=== PATIENT | female | born 1955 | race Caucasian/White ===

== ENCOUNTER 2016-06-15 10:31 | Inpatient (IN) | payer OTHER ==
[2016-06-15] VITALS (23 sets, daily range): BP systolic 88–164; BP diastolic 36–102
[~2016-06-15] VITALS: Ht 154.9 cm; Wt 63.0 kg
[~2016-06-15 10:31] MED LIST: METH10TA2 PO
[2016-06-15] MEDS ORDERED: IV SET PRIMARY PUMP SET 1 EA INFUS.SET MC ONE ×4 (10:54→23:50)
[2016-06-15] MEDS ORDERED: IV NS 0.9% 2,000 ML ONE (10:54)
[2016-06-15] MEDS ORDERED: LORAZEPAM INJ 2 MG/ML VIAL ONE (10:59)
[2016-06-15] MEDS ORDERED: VANCOMYCIN 1 GM in IV D5W 250 ML IV ONE (11:00)
[2016-06-15] MEDS ORDERED: IV NS 0.9% 1,000 ML BAG IV ONE ×2 (11:00)
[2016-06-15] MEDS ORDERED: CEFEPIME 1 GM in IV D5W 50 ML IV ONE (11:00)
[2016-06-15] MEDS ORDERED: LORAZEPAM INJ 2 MG/ML VIAL IV ONE (11:00)
[2016-06-15 11:34] LABS: INR 0.99 (0.87-1.13); PROTHROMBIN TIME 10.4 SECS (9.5-12.7)
[2016-06-15 11:35] LABS: ABG BASE EXCESS -27.3 mmol/L; ABG HCO3 3.7 mmol/L; ABG PCO2 17.9 mmHg (35.0-45.0); ABG PH 6.934 (7.350-7.450); ABG PO2 144.5 mmHg (75.0-100.0); O2Hb 96.3 % (94.0-97.0)
[2016-06-15 11:39] LABS: TROPONIN I < 0.017 ng/mL (0.00-0.056)
[2016-06-15 11:45] LABS: ALANINE AMINOTRANSFERASE 106 U/L (12-78); ALBUMIN 3.2 g/dL (3.4-5.0); ANION GAP 34 (5-14); ASPARTATE AMINOTRANSFERASE 150 U/L (15-37); BILIRUBIN,DIRECT 0.3 mg/dL (0.0-0.2); BILIRUBIN,TOTAL 0.8 mg/dL (0.2-1.0); CALCIUM, SERUM 9.2 mg/dL (8.5-10.1); CHLORIDE 100 mmol/L (98-107); CREATININE 1.5 mg/dL (0.6-1.3); GFR 36 mL/min (>60); INDIRECT BILIRUBIN 0.5 mg/dL (0.0-1.1); POTASSIUM 4.8 mmol/L (3.5-5.1); SODIUM SERUM 136 mmol/L (136-145); TOTAL PROTEIN, SERUM 8.3 g/dL (6.4-8.2); UREA NITROGEN, BLOOD 27 mg/dL (7-18)
[2016-06-15 11:47] LABS: THYROID STIMULATING HORMONE 0.106 uIU/mL (0.358-3.74)
[2016-06-15 11:48] LABS: LACTIC ACID 2.3 mmol/L (0.4-2.0)
[2016-06-15 11:51] LABS: CARBON DIOXIDE 6 mmol/L (21-32); GLUCOSE 553 mg/dL (74-106)
[2016-06-15 11:52] LABS: ADD UA MICROSCOPIC YES; KETONES,URINE 3+ (NEGATIVE); LEUKOCYTE ESTERASE ,URINE NEGATIVE (NEGATIVE)
[2016-06-15 11:56] LABS: BASOPHILS # (AUTO) 0.2 /CMM (0.0-0.2); BASOPHILS % (AUTO) 0.8 % (0.0-2.0); DIFF TOTAL % 100 %; EOSINOPHILS % (AUTO) 0.1 % (0.0-6.0); HEMATOCRIT 45 % (33-45); HEMOGLOBIN 14.1 g/dL (11.5-14.8); LYMPHOCYTES # (AUTO) 1.8 /CMM (0.8-4.8); LYMPHOCYTES % (AUTO) 7.7 % (20.0-44.0); MEAN CORPUSCULAR HEMOGLOBIN 27 PG (26.0-33.0); MEAN CORPUSCULAR HGB CONC 31 g/dl (31.0-36.0); MEAN CORPUSCULAR VOLUME 88 fL (82-100); MONOCYTES # (AUTO) 0.8 /CMM (0.1-1.30); MONOCYTES % (AUTO) 3.2 % (2.0-12.0); NEUTROPHILS # (AUTO) 20.9 /CMM (1.8-8.9); NEUTROPHILS % (AUTO) 88.2 % (43.0-81.0); PLATELET COUNT (AUTO) 499 /CMM (150-450); RED BLOOD CELL COUNT(AUTO) 5.16 MIL/uL (4.0-5.2); WHITE BLOOD COUNT (AUTO) 23.7 K/uL (4.3-11.0)
[2016-06-15 12:04] LABS: ADD URINE CULTURE NO; WBC,URINE 0-2 /HPF (0-3)
[2016-06-15 12:17] LABS: *LACTIC ACID REFLEX FLAG YES
[2016-06-15] MEDS ORDERED: INSULIN REGULAR, HUMAN 100 UNIT in IV NS 0.9% 99 ML IV PRN ×8 (12:30→17:30)
[2016-06-15 12:32] LABS: BAND % (MANUAL) 6 % (0.0-5.0); LYMPHOCYTES % (MANUAL) 9 % (16-48)
[2016-06-15 12:33] LABS: PLATELET ESTIMATE ADEQUATE
[2016-06-15 12:34] LABS: ANISOCYTOSIS 1+; BURR CELLS 1+
[2016-06-15] MEDS ORDERED: Potassium Chloride 40 MEQ in IV NS 0.9% 1,000 ML IV STA (12:51)
[2016-06-15] MEDS ORDERED: IV NS 0.9% 1,000 ML IV PRN (13:16)
[2016-06-15] MEDS ORDERED: ONDANSETRON HCL/PF 4 MG/2 ML VIAL IVP PRN (13:30)
[2016-06-15] MEDS ORDERED: MAG HYDROX/AL HYDROX/SIMETH 30 ML UDC PO PRN (13:30)
[2016-06-15] MEDS ORDERED: Z GUARD REMEDY 2 OZ OINT TP PRN (13:30)
[2016-06-15] MEDS ORDERED: MAGNESIUM HYDROXIDE 30 ML UDC PO PRN (13:30)
[2016-06-15] MEDS ORDERED: ACETAMINOPHEN 325 MG TABLET PO PRN (13:30)
[2016-06-15] MEDS ORDERED: FEE PK DOSING 1 MIN EA MC ONE (13:42)
[2016-06-15] MEDS: IV NS 0.9% 1,000 ML IV STA ×2 (13:55→14:41)
[2016-06-15] MEDS ORDERED: VANCOMYCIN 1 GM in IV D5W 250 ML IV SCH (14:00)
[2016-06-15] MEDS ORDERED: BLOOD SUGAR DIAGNOSTIC 1 EACH STRIP IN SCH (14:30)
[2016-06-15] MEDS: BLOOD SUGAR DIAGNOSTIC 1 EACH STRIP IN SCH ×9 (15:46→23:41)
[2016-06-15 15:54] LABS: CANNABINOID, URINE NEGATIVE (NEGATIVE); PHENCYCLIDINE SCREEN,URINE NEGATIVE (NEGATIVE)
[2016-06-15] MEDS: PIPERACILLIN /TAZOBACTAM 2.25 G in IV D5W 50 ML IV SCH (17:28)
[2016-06-15] MEDS: IV D5/0.45 NACL 1,000 ML IV PRN (17:37)
[2016-06-15 18:36] LABS: CALCIUM, SERUM 7.8 mg/dL (8.5-10.1); CREATININE 1.2 mg/dL (0.6-1.3); POTASSIUM 4.1 mmol/L (3.5-5.1)
[2016-06-15] MEDS ORDERED: DEXTROSE 50%-WATER 50 ML DISP.SYRIN IV PRN (23:00)
[2016-06-15] MEDS ORDERED: PANTOPRAZOLE 40 MG VIAL ONE ×2 (23:48→23:49)
[2016-06-15] MEDS ORDERED: IV NS 0.9% 500 ML IV ONE (23:49)
[2016-06-15] MEDS: PANTOPRAZOLE 80 MG in IV NS 0.9% 500 ML IV PRN (23:56)
[2016-06-16] VITALS (40 sets, daily range): BP systolic 117–167; BP diastolic 64–109
[2016-06-16] MEDS: PIPERACILLIN /TAZOBACTAM 2.25 G in IV D5W 50 ML IV SCH ×2 (01:00→06:08)
[2016-06-16] MEDS: INSULIN REGULAR, HUMAN 100 UNIT/ML 3 ML VIAL SQ PRN ×3 (01:04→08:25)
[2016-06-16] MEDS: BLOOD SUGAR DIAGNOSTIC 1 EACH STRIP IN SCH ×16 (01:05→23:00)
[2016-06-16 01:18] LABS: CALCIUM, SERUM 8.4 mg/dL (8.5-10.1); POTASSIUM 3.4 mmol/L (3.5-5.1)
[2016-06-16 04:49] LABS: DIFF TOTAL % 100 %; HEMATOCRIT 35 % (33-45); HEMOGLOBIN 11.7 g/dL (11.5-14.8); LYMPHOCYTES # (AUTO) 0.5 /CMM (0.8-4.8); LYMPHOCYTES % (AUTO) 4.3 % (20.0-44.0); MEAN CORPUSCULAR HEMOGLOBIN 28 PG (26.0-33.0); MEAN CORPUSCULAR HGB CONC 33 g/dl (31.0-36.0); MEAN CORPUSCULAR VOLUME 84 fL (82-100); MONOCYTES # (AUTO) 0.9 /CMM (0.1-1.30); MONOCYTES % (AUTO) 7.5 % (2.0-12.0); NEUTROPHILS % (AUTO) 88.2 % (43.0-81.0); PLATELET COUNT (AUTO) 201 /CMM (150-450); WHITE BLOOD COUNT (AUTO) 11.4 K/uL (4.3-11.0)
[2016-06-16 05:04] LABS: CALCIUM, SERUM 8.2 mg/dL (8.5-10.1); PHOSPHORUS 1.1 mg/dL (2.5-4.9); POTASSIUM 3.1 mmol/L (3.5-5.1)
[2016-06-16] MEDS: IV D5/0.45 NACL 1,000 ML IV PRN (05:34)
[2016-06-16] MEDS ORDERED: PANTOPRAZOLE 40 MG TABLET.DR PO SCH (07:30)
[2016-06-16] MEDS: BACITRACIN ZINC OINT (15 GM) 15 GM TUBE TP SCH ×2 (08:28→17:18)
[2016-06-16] MEDS: PANTOPRAZOLE 80 MG in IV NS 0.9% 500 ML IV PRN (08:45)
[2016-06-16] MEDS: NEOMY SULF/BACITRAC ZN/POLY 15 GM TUBE TP SCH (09:23)
[2016-06-16] MEDS ORDERED: POTASSIUM CL. PREMIX PERIPHER. 50 ML IV SCH (10:57)
[2016-06-16] MEDS ORDERED: Magnesium 1GM/D5W 100ML PREMIX 100 ML IV SCH (10:57)
[2016-06-16] MEDS ORDERED: IV SET PRIMARY PUMP SET 1 EA INFUS.SET MC ONE (11:10)
[2016-06-16] MEDS: Magnesium 1GM/D5W 100ML PREMIX 100 ML IV SCH ×4 (11:16→14:13)
[2016-06-16] MEDS: VANCOMYCIN 1 GM in IV D5W 250 ML IV SCH ×2 (11:28→22:48)
[2016-06-16] MEDS: INSULIN REGULAR, HUMAN 100 UNIT in IV NS 0.9% 99 ML IV PRN ×2 (11:51)
[2016-06-16] MEDS: PIPERACILLIN /TAZOBACTAM 3.375 G in IV D5W 50 ML IV SCH ×3 (11:52→23:21)
[2016-06-16] MEDS ORDERED: POTASSIUM PHOSPHATE MM 15 MMOL in IV D5W 250 ML IV SCH ×3 (12:00→21:30)
[2016-06-16] MEDS ORDERED: VANCOMYCIN 1 GM in IV D5W 250 ML IV SCH (14:00)
[2016-06-16 17:46] LABS: CREATININE 0.9 mg/dL (0.6-1.3)
[2016-06-16 17:48] LABS: PHOSPHORUS 0.8 mg/dL (2.5-4.9); POTASSIUM 2.7 mmol/L (3.5-5.1)
[2016-06-16] MEDS: POTASSIUM CL. PREMIX PERIPHER. 50 ML IV SCH ×4 (18:48→21:35)
[2016-06-16] MEDS: Potassium Chloride 40 MEQ in IV D5/0.45 NACL 1,000 ML IV PRN (18:59)
[2016-06-16] MEDS ORDERED: ALBUTEROL FS 2.5 MG/0.5 ML VIAL.NEB NEB PRN (20:00)
[2016-06-16] MEDS: PANTOPRAZOLE 40 MG VIAL IV SCH (21:35)
[2016-06-16] MEDS: HYDROCODONE/APAP 5/325MG 1 EACH TABLET PO PRN (22:56)
[2016-06-17] VITALS (41 sets, daily range): BP systolic 86–137; BP diastolic 48–96
[2016-06-17] MEDS: BLOOD SUGAR DIAGNOSTIC 1 EACH STRIP IN SCH ×14 (00:54→21:22)
[2016-06-17 05:03] LABS: CALCIUM, SERUM 7.9 mg/dL (8.5-10.1); CREATININE 0.7 mg/dL (0.6-1.3)
[2016-06-17 05:23] LABS: POTASSIUM 2.7 mmol/L (3.5-5.1)
[2016-06-17] MEDS: PIPERACILLIN /TAZOBACTAM 3.375 G in IV D5W 50 ML IV SCH ×4 (06:59→23:50)
[2016-06-17] MEDS: Potassium Chloride 40 MEQ in IV D5/0.45 NACL 1,000 ML IV PRN (06:59)
[2016-06-17] MEDS ORDERED: Sodium Phosphate 15 MMOL in IV D5W 250 ML IV ONE ×3 (07:30→23:30)
[2016-06-17] MEDS: GUAIFENESIN/CODEINE 10 ML UDC PO PRN (07:38)
[2016-06-17] MEDS: POTASSIUM CL. PREMIX PERIPHER. 50 ML IV SCH ×10 (07:58→17:25)
[2016-06-17] MEDS: PANTOPRAZOLE 40 MG VIAL IV SCH ×2 (07:58→21:14)
[2016-06-17] MEDS: INSULIN REGULAR, HUMAN 100 UNIT in IV NS 0.9% 99 ML IV PRN ×4 (08:00→09:08)
[2016-06-17] MEDS: BACITRACIN ZINC OINT (15 GM) 15 GM TUBE TP SCH ×2 (08:10→16:51)
[2016-06-17] MEDS: NEOMY SULF/BACITRAC ZN/POLY 15 GM TUBE TP SCH (08:10)
[2016-06-17] MEDS ORDERED: NEUTRA PHOS 1 POWD.PACKET PO ONE (08:30)
[2016-06-17] MEDS ORDERED: POTASSIUM CL. PREMIX PERIPHER. 50 ML IV SCH (08:30)
[2016-06-17] MEDS: Potassium Phosphate meq 11 MEQ in IV D5W 100 ML IV SCH ×2 (09:31→11:57)
[2016-06-17] MEDS: VANCOMYCIN 1 GM in IV D5W 250 ML IV SCH (10:43)
[2016-06-17] MEDS ORDERED: FUROSEMIDE 40 MG/4 ML VIAL IV ONE (11:00)
[2016-06-17] MEDS ORDERED: IV NS 0.9% 250 ML IV ONE ×2 (11:00→18:40)
[2016-06-17] MEDS ORDERED: DEXTROSE 50%-WATER 50 ML DISP.SYRIN IV PRN (11:00)
[2016-06-17] MEDS ORDERED: IV NS 0.9% 250 ML IV PRN (11:30)
[2016-06-17] MEDS: INSULIN REGULAR, HUMAN 100 UNIT/ML 3 ML VIAL SQ PRN ×3 (12:18→21:25)
[2016-06-17] MEDS ORDERED: ACETAMINOPHEN 650 MG/20.3 ML UDC PO PRN (13:00)
[2016-06-17 13:56] LABS: LACTIC ACID 3.5 mmol/L (0.4-2.0)
[2016-06-17 14:31] LABS: *LACTIC ACID REFLEX FLAG YES
[2016-06-17] MEDS: ALPRAZOLAM 1 MG TABLET PO SCH ×2 (14:47→22:23)
[2016-06-17 14:51] LABS: ALLEN TEST Pass
[2016-06-17 15:38] LABS: BILIRUBIN,DIRECT 0.3 mg/dL (0.0-0.2)
[2016-06-17 18:19] LABS: CALCIUM, SERUM 8.2 mg/dL (8.5-10.1); CREATININE 0.9 mg/dL (0.6-1.3); PHOSPHORUS 1.5 mg/dL (2.5-4.9); POTASSIUM 3.8 mmol/L (3.5-5.1)
[2016-06-17 18:34] LABS: BASOPHILS % (AUTO) 0.1 % (0.0-2.0); DIFF TOTAL % 100 %; HEMATOCRIT 42 % (33-45); HEMOGLOBIN 13.7 g/dL (11.5-14.8); LYMPHOCYTES # (AUTO) 1.5 /CMM (0.8-4.8); LYMPHOCYTES % (AUTO) 15.4 % (20.0-44.0); MEAN CORPUSCULAR HEMOGLOBIN 27 PG (26.0-33.0); MEAN CORPUSCULAR HGB CONC 33 g/dl (31.0-36.0); MEAN CORPUSCULAR VOLUME 82 fL (82-100); MONOCYTES # (AUTO) 0.5 /CMM (0.1-1.30); MONOCYTES % (AUTO) 5.2 % (2.0-12.0); NEUTROPHILS # (AUTO) 7.8 /CMM (1.8-8.9); NEUTROPHILS % (AUTO) 79.3 % (43.0-81.0); PLATELET COUNT (AUTO) 273 /CMM (150-450); RED BLOOD CELL COUNT(AUTO) 5.04 MIL/uL (4.0-5.2); WHITE BLOOD COUNT (AUTO) 9.8 K/uL (4.3-11.0)
[2016-06-17] MEDS ORDERED: CT SWABBABLE VALVE TRANS SET 1 EA INFUS.SET MC ONE (18:40)
[2016-06-17] MEDS ORDERED: IOHEXOL-350 100 ML VIAL IV ONE (18:40)
[2016-06-17] MEDS ORDERED: Magnesium 1GM/D5W 100ML PREMIX 100 ML IV SCH (20:00)
[2016-06-17] MEDS ORDERED: IV NS 0.9% 1,000 ML IV PRN (20:00)
[2016-06-17] MEDS ORDERED: IV SET PRIMARY PUMP SET 1 EA INFUS.SET MC ONE (20:20)
[2016-06-17] MEDS ORDERED: IV NS 0.9% 1,000 ML ONE (20:21)
[2016-06-17] MEDS ORDERED: SECONDARY IV SET 1 EA INFUS.SET MC ONE ×2 (20:34→22:25)
[2016-06-17] MEDS: VANCOMYCIN 1.25 GM in IV D5W 500 ML IV SCH (22:21)
[2016-06-17] MEDS: ENOXAPARIN SODIUM 40 MG/0.4 ML DISP.SYRIN SQ SCH (22:22)
[2016-06-18] VITALS (38 sets, daily range): BP systolic 92–125; BP diastolic 47–83
[2016-06-18] MEDS: BLOOD SUGAR DIAGNOSTIC 1 EACH STRIP IN SCH ×6 (01:00→22:09)
[2016-06-18] MEDS: INSULIN REGULAR, HUMAN 100 UNIT/ML 3 ML VIAL SQ PRN ×4 (01:01→21:10)
[2016-06-18 04:56] LABS: BASOPHILS # (AUTO) 0.1 /CMM (0.0-0.2); BASOPHILS % (AUTO) 1.3 % (0.0-2.0); DIFF TOTAL % 100 %; EOSINOPHILS % (AUTO) 0.7 % (0.0-6.0); HEMATOCRIT 39 % (33-45); LYMPHOCYTES # (AUTO) 1.5 /CMM (0.8-4.8); LYMPHOCYTES % (AUTO) 25.6 % (20.0-44.0); MEAN CORPUSCULAR HEMOGLOBIN 27 PG (26.0-33.0); MEAN CORPUSCULAR HGB CONC 33 g/dl (31.0-36.0); MEAN CORPUSCULAR VOLUME 83 fL (82-100); MONOCYTES # (AUTO) 0.5 /CMM (0.1-1.30); NEUTROPHILS # (AUTO) 3.9 /CMM (1.8-8.9); NEUTROPHILS % (AUTO) 64.4 % (43.0-81.0); PLATELET COUNT (AUTO) 192 /CMM (150-450); RED BLOOD CELL COUNT(AUTO) 4.75 MIL/uL (4.0-5.2)
[2016-06-18 05:01] LABS: CREATININE 0.6 mg/dL (0.6-1.3)
[2016-06-18] MEDS ORDERED: SECONDARY IV SET 1 EA INFUS.SET MC ONE (05:55)
[2016-06-18] MEDS: ALPRAZOLAM 1 MG TABLET PO SCH (06:25)
[2016-06-18] MEDS: PIPERACILLIN /TAZOBACTAM 3.375 G in IV D5W 50 ML IV SCH ×3 (06:37→17:17)
[2016-06-18 07:33] LABS: PHOSPHORUS 3.8 mg/dL (2.5-4.9)
[2016-06-18] MEDS ORDERED: POTASSIUM CHLORIDE 20 MEQ POWDER PACKET PO ONE (08:00)
[2016-06-18 08:07] LABS: ABG BASE EXCESS 3.8 mmol/L; ABG HCO3 24.5 mmol/L; ABG NOTIFIED BY AS RRT; ABG PCO2 26.6 mmHg (35.0-45.0); ABG PH 7.582 (7.350-7.450); ABG PO2 51.9 mmHg (75.0-100.0); AaDO2 289.1 mmHg; O2Hb 89.7 % (94.0-97.0)
[2016-06-18] MEDS: PANTOPRAZOLE 40 MG VIAL IV SCH ×2 (08:22→21:10)
[2016-06-18 09:03] LABS: ABG BASE EXCESS 3.5 mmol/L; ABG HCO3 25.9 mmol/L; ABG NOTIFIED BY AS RRT.; ABG PCO2 32.3 mmHg (35.0-45.0); ABG PH 7.522 (7.350-7.450); ABG PO2 62.2 mmHg (75.0-100.0); ABG TOTAL HEMOGLOBIN 12.7 G/dL (12.0-16.0); ALLEN TEST Pass; AaDO2 330.1 mmHg; O2Hb 91.2 % (94.0-97.0)
[2016-06-18] MEDS: NEOMY SULF/BACITRAC ZN/POLY 15 GM TUBE TP SCH (09:14)
[2016-06-18] MEDS: BACITRACIN ZINC OINT (15 GM) 15 GM TUBE TP SCH ×2 (09:14→16:50)
[2016-06-18] MEDS: Potassium Chloride 40 MEQ in IV NS 0.9% 1,000 ML IV PRN (09:40)
[2016-06-18] MEDS: VANCOMYCIN 1.25 GM in IV D5W 500 ML IV SCH ×2 (11:24→23:13)
[2016-06-18] MEDS: IPRATROPIUM NEB FS 0.5 MG/2.5 ML AMPUL.NEB NEB SCH ×3 (12:07→19:30)
[2016-06-18] MEDS: ALBUTEROL HALF STRENGTH 1.25 MG/3 ML VIAL.NEB NEB SCH ×3 (12:07→19:30)
[2016-06-18] MEDS ORDERED: ALPRAZOLAM 0.25 MG TABLET PO SCH (15:00)
[2016-06-18] MEDS ORDERED: IPRATROPIUM NEB FS 0.5 MG/2.5 ML AMPUL.NEB NEB SCH (15:30)
[2016-06-18] MEDS: LACTOBACILLUS RHAMNOSUS GG 1 EACH CAP.SPRINK PO SCH (17:17)
[2016-06-18] MEDS: ENOXAPARIN SODIUM 40 MG/0.4 ML DISP.SYRIN SQ SCH (18:58)
[2016-06-18] MEDS: LORAZEPAM INJ 2 MG/ML VIAL IV PRN (18:58)
[2016-06-18] MEDS: GUAIFENESIN/CODEINE 10 ML UDC PO PRN (18:59)
[2016-06-18] MEDS ORDERED: ALPRAZOLAM 0.5 MG TABLET PO SCH (21:00)
[2016-06-18] MEDS ORDERED: ALPRAZOLAM 0.5 MG TABLET PO PRN (22:00)
[2016-06-18] MEDS: ALPRAZOLAM 0.5 MG TABLET PO SCH (22:09)
[2016-06-18] MEDS: ZOLPIDEM TARTRATE 5 MG TABLET PO PRN (23:20)
[2016-06-19] VITALS (15 sets, daily range): BP systolic 89–140; BP diastolic 38–77
[2016-06-19] MEDS: IPRATROPIUM NEB FS 0.5 MG/2.5 ML AMPUL.NEB NEB SCH ×7 (00:10→23:30)
[2016-06-19] MEDS: ALBUTEROL HALF STRENGTH 1.25 MG/3 ML VIAL.NEB NEB SCH ×7 (00:10→23:30)
[2016-06-19] MEDS: PIPERACILLIN /TAZOBACTAM 3.375 G in IV D5W 50 ML IV SCH ×4 (01:04→17:10)
[2016-06-19] MEDS: INSULIN REGULAR, HUMAN 100 UNIT/ML 3 ML VIAL SQ PRN ×4 (01:04→20:21)
[2016-06-19] MEDS: BLOOD SUGAR DIAGNOSTIC 1 EACH STRIP IN SCH ×6 (01:04→20:21)
[2016-06-19] MEDS: Potassium Chloride 40 MEQ in IV NS 0.9% 1,000 ML IV PRN (01:08)
[2016-06-19 04:55] LABS: BASOPHILS % (AUTO) 0.6 % (0.0-2.0); DIFF TOTAL % 100 %; EOSINOPHILS # (AUTO) 0.2 /CMM (0.0-0.7); EOSINOPHILS % (AUTO) 4.3 % (0.0-6.0); HEMATOCRIT 32 % (33-45); HEMOGLOBIN 10.8 g/dL (11.5-14.8); LYMPHOCYTES # (AUTO) 1.2 /CMM (0.8-4.8); LYMPHOCYTES % (AUTO) 29.5 % (20.0-44.0); MEAN CORPUSCULAR HEMOGLOBIN 28 PG (26.0-33.0); MEAN CORPUSCULAR HGB CONC 34 g/dl (31.0-36.0); MEAN CORPUSCULAR VOLUME 84 fL (82-100); MONOCYTES # (AUTO) 0.3 /CMM (0.1-1.30); MONOCYTES % (AUTO) 8.4 % (2.0-12.0); NEUTROPHILS # (AUTO) 2.3 /CMM (1.8-8.9); NEUTROPHILS % (AUTO) 57.2 % (43.0-81.0); PLATELET COUNT (AUTO) 121 /CMM (150-450); RED BLOOD CELL COUNT(AUTO) 3.85 MIL/uL (4.0-5.2)
[2016-06-19 05:06] LABS: CALCIUM, SERUM 7.9 mg/dL (8.5-10.1); CREATININE 0.7 mg/dL (0.6-1.3); POTASSIUM 3.5 mmol/L (3.5-5.1)
[2016-06-19] MEDS: ALPRAZOLAM 0.5 MG TABLET PO SCH ×3 (05:32→21:17)
[2016-06-19] MEDS: PANTOPRAZOLE 40 MG VIAL IV SCH ×2 (09:18→20:18)
[2016-06-19] MEDS: LACTOBACILLUS RHAMNOSUS GG 1 EACH CAP.SPRINK PO SCH ×2 (09:18→16:25)
[2016-06-19] MEDS: NEOMY SULF/BACITRAC ZN/POLY 15 GM TUBE TP SCH (09:24)
[2016-06-19] MEDS: BACITRACIN ZINC OINT (15 GM) 15 GM TUBE TP SCH ×2 (09:25→16:28)
[2016-06-19] MEDS: VANCOMYCIN 1.25 GM in IV D5W 500 ML IV SCH ×2 (10:38→22:05)
[2016-06-19] MEDS: LOPERAMIDE HCL (2 MG CAP) 2 MG CAPSULE PO PRN ×2 (13:25→20:16)
[2016-06-19] MEDS: GUAIFENESIN/CODEINE 10 ML UDC PO PRN ×2 (16:28→22:05)
[2016-06-19] MEDS: ZOLPIDEM TARTRATE 5 MG TABLET PO PRN (20:16)
[2016-06-19] MEDS ORDERED: IV SET PRIMARY PUMP SET 1 EA INFUS.SET MC ONE (21:06)
[2016-06-19] MEDS ORDERED: IV NS 0.9% 250 ML IV ONE (21:06)
[2016-06-19] MEDS ORDERED: SECONDARY IV SET 1 EA INFUS.SET MC ONE (21:56)
[2016-06-19] MEDS: HYDROCODONE/APAP 5/325MG 1 EACH TABLET PO PRN (23:08)
[2016-06-20] VITALS: BP 115/71
[2016-06-20] MEDS ORDERED: SECONDARY IV SET 1 EA INFUS.SET MC ONE (00:39)
[2016-06-20] MEDS: PIPERACILLIN /TAZOBACTAM 3.375 G in IV D5W 50 ML IV SCH ×5 (00:51→23:39)
[2016-06-20] MEDS: BLOOD SUGAR DIAGNOSTIC 1 EACH STRIP IN SCH ×6 (00:54→21:18)
[2016-06-20] MEDS: INSULIN REGULAR, HUMAN 100 UNIT/ML 3 ML VIAL SQ PRN ×6 (00:54→21:38)
[2016-06-20] MEDS: IPRATROPIUM NEB FS 0.5 MG/2.5 ML AMPUL.NEB NEB SCH ×8 (03:30→23:41)
[2016-06-20] MEDS: ALBUTEROL HALF STRENGTH 1.25 MG/3 ML VIAL.NEB NEB SCH ×9 (03:30→23:41)
[2016-06-20 04:00] VITALS: BP 118/70
[2016-06-20] MEDS: LOPERAMIDE HCL (2 MG CAP) 2 MG CAPSULE PO PRN (05:13)
[2016-06-20] MEDS: LORAZEPAM INJ 2 MG/ML VIAL IV PRN ×4 (05:22→23:34)
[2016-06-20] MEDS: ALPRAZOLAM 0.5 MG TABLET PO SCH ×3 (06:21→21:17)
[2016-06-20 07:05] LABS: BASOPHILS % (AUTO) 0.3 % (0.0-2.0); DIFF TOTAL % 100 %; EOSINOPHILS # (AUTO) 0.2 /CMM (0.0-0.7); EOSINOPHILS % (AUTO) 3.8 % (0.0-6.0); HEMATOCRIT 34 % (33-45); HEMOGLOBIN 11.2 g/dL (11.5-14.8); LYMPHOCYTES # (AUTO) 1.4 /CMM (0.8-4.8); LYMPHOCYTES % (AUTO) 31.4 % (20.0-44.0); MEAN CORPUSCULAR HEMOGLOBIN 28 PG (26.0-33.0); MEAN CORPUSCULAR HGB CONC 33 g/dl (31.0-36.0); MEAN CORPUSCULAR VOLUME 85 fL (82-100); MONOCYTES # (AUTO) 0.5 /CMM (0.1-1.30); NEUTROPHILS # (AUTO) 2.4 /CMM (1.8-8.9); NEUTROPHILS % (AUTO) 53.5 % (43.0-81.0); PLATELET COUNT (AUTO) 127 /CMM (150-450); RED BLOOD CELL COUNT(AUTO) 4.02 MIL/uL (4.0-5.2); WHITE BLOOD COUNT (AUTO) 4.5 K/uL (4.3-11.0)
[2016-06-20 07:18] LABS: CALCIUM, SERUM 8.5 mg/dL (8.5-10.1); CREATININE 0.8 mg/dL (0.6-1.3); POTASSIUM 3.7 mmol/L (3.5-5.1)
[2016-06-20 08:00] VITALS: BP 124/87
[2016-06-20] MEDS: PANTOPRAZOLE 40 MG VIAL IV SCH ×2 (09:02→21:17)
[2016-06-20] MEDS: LACTOBACILLUS RHAMNOSUS GG 1 EACH CAP.SPRINK PO SCH ×2 (09:02→16:28)
[2016-06-20] MEDS: HYDROCODONE/APAP 5/325MG 1 EACH TABLET PO PRN ×4 (09:05→23:43)
[2016-06-20] MEDS: BACITRACIN ZINC OINT (15 GM) 15 GM TUBE TP SCH ×2 (09:05→16:29)
[2016-06-20] MEDS: NEOMY SULF/BACITRAC ZN/POLY 15 GM TUBE TP SCH (09:05)
[2016-06-20] MEDS: VANCOMYCIN 1.25 GM in IV D5W 500 ML IV SCH ×3 (11:30→23:08)
[2016-06-20 12:00] VITALS: BP 125/76
[2016-06-20 16:00] VITALS: BP 129/88
[2016-06-20] MEDS: ZOLPIDEM TARTRATE 5 MG TABLET PO PRN (18:46)
[2016-06-20 20:00] VITALS: BP 140/74
[2016-06-20] MEDS ORDERED: IV NS 0.9% 250 ML IV ONE (23:30)
[2016-06-21] VITALS: BP 105/77
[2016-06-21] MEDS: BLOOD SUGAR DIAGNOSTIC 1 EACH STRIP IN SCH ×6 (01:04→21:15)
[2016-06-21] MEDS: ALBUTEROL HALF STRENGTH 1.25 MG/3 ML VIAL.NEB NEB SCH ×6 (02:57→23:30)
[2016-06-21] MEDS: IPRATROPIUM NEB FS 0.5 MG/2.5 ML AMPUL.NEB NEB SCH ×6 (02:58→23:30)
[2016-06-21 04:00] VITALS: BP 101/57
[2016-06-21] MEDS: INSULIN REGULAR, HUMAN 100 UNIT/ML 3 ML VIAL SQ PRN ×5 (04:14→21:27)
[2016-06-21] MEDS: HYDROCODONE/APAP 5/325MG 1 EACH TABLET PO PRN ×2 (05:19→09:39)
[2016-06-21] MEDS: ALPRAZOLAM 0.5 MG TABLET PO SCH ×3 (05:19→21:59)
[2016-06-21] MEDS: PIPERACILLIN /TAZOBACTAM 3.375 G in IV D5W 50 ML IV SCH ×3 (05:19→18:04)
[2016-06-21 07:32] LABS: CALCIUM, SERUM 8.3 mg/dL (8.5-10.1)
[2016-06-21 08:00] VITALS: BP 124/73
[2016-06-21 08:04] LABS: POTASSIUM 2.7 mmol/L (3.5-5.1)
[2016-06-21] MEDS: PANTOPRAZOLE 40 MG VIAL IV SCH ×2 (08:36→20:42)
[2016-06-21] MEDS: BACITRACIN ZINC OINT (15 GM) 15 GM TUBE TP SCH ×2 (08:37→18:04)
[2016-06-21] MEDS: NEOMY SULF/BACITRAC ZN/POLY 15 GM TUBE TP SCH (08:37)
[2016-06-21] MEDS: LACTOBACILLUS RHAMNOSUS GG 1 EACH CAP.SPRINK PO SCH (08:38)
[2016-06-21] MEDS: VANCOMYCIN 1.25 GM in IV D5W 500 ML IV SCH (11:00)
[2016-06-21] MEDS ORDERED: SECONDARY IV SET 1 EA INFUS.SET MC ONE (11:06)
[2016-06-21] MEDS: Potassium Chloride 10 MEQ, LIDOCAINE HCL/PF 1% 1 ML in IV D5W 50 ML IV SCH ×3 (11:15→13:41)
[2016-06-21 12:00] VITALS: BP 120/75
[2016-06-21 16:00] VITALS: BP_SYST 127; BP_SYST 131; BP_DIAS 41; BP_DIAS 77
[2016-06-21] MEDS ORDERED: POTASSIUM CHLORIDE 20 MEQ TAB.PRT.SR PO ONE (18:30)
[2016-06-21] MEDS: HYDROCODONE/APAP 10/325MG 1 EA TABLET PO PRN (18:49)
[2016-06-21 20:00] VITALS: BP 107/66
[2016-06-21] MEDS: LORAZEPAM INJ 2 MG/ML VIAL IV PRN (20:03)
[2016-06-21] MEDS: VANCOMYCIN 0.75 GM in IV D5W 250 ML IV SCH (20:41)
[2016-06-21] MEDS: ZOLPIDEM TARTRATE 5 MG TABLET PO PRN (21:14)
[2016-06-22] VITALS: BP_SYST 132; BP_DIAS 81; BP_DIAS 84
[2016-06-22] MEDS: PIPERACILLIN /TAZOBACTAM 3.375 G in IV D5W 50 ML IV SCH ×4 (00:33→18:00)
[2016-06-22] MEDS: BLOOD SUGAR DIAGNOSTIC 1 EACH STRIP IN SCH ×5 (00:33→16:34)
[2016-06-22 04:00] VITALS: BP 118/74
[2016-06-22] MEDS: HYDROCODONE/APAP 10/325MG 1 EA TABLET PO PRN ×3 (04:20→16:31)
[2016-06-22] MEDS: IPRATROPIUM NEB FS 0.5 MG/2.5 ML AMPUL.NEB NEB SCH ×4 (04:30→15:54)
[2016-06-22] MEDS: ALBUTEROL HALF STRENGTH 1.25 MG/3 ML VIAL.NEB NEB SCH ×4 (04:30→15:54)
[2016-06-22] MEDS ORDERED: IV NS 0.9% 250 ML IV ONE (05:01)
[2016-06-22] MEDS: ALPRAZOLAM 0.5 MG TABLET PO SCH ×2 (05:32→13:35)
[2016-06-22] MEDS: INSULIN REGULAR, HUMAN 100 UNIT/ML 3 ML VIAL SQ PRN ×3 (05:37→16:34)
[2016-06-22 07:59] LABS: CREATININE 0.9 mg/dL (0.6-1.3); POTASSIUM 3.7 mmol/L (3.5-5.1)
[2016-06-22 08:00] VITALS: BP 124/78
[2016-06-22] MEDS: PANTOPRAZOLE 40 MG VIAL IV SCH (08:10)
[2016-06-22] MEDS: VANCOMYCIN 0.75 GM in IV D5W 250 ML IV SCH (08:10)
[2016-06-22] MEDS: NEOMY SULF/BACITRAC ZN/POLY 15 GM TUBE TP SCH (08:12)
[2016-06-22] MEDS: BACITRACIN ZINC OINT (15 GM) 15 GM TUBE TP SCH ×2 (08:12→16:36)
[2016-06-22] MEDS: LORAZEPAM INJ 2 MG/ML VIAL IV PRN (08:57)
[2016-06-22 11:03] LABS: ALANINE AMINOTRANSFERASE 16 U/L (12-78); ALBUMIN 2.1 g/dL (3.4-5.0); ASPARTATE AMINOTRANSFERASE 14 U/L (15-37); BILIRUBIN,DIRECT 0.1 mg/dL (0.0-0.2); BILIRUBIN,TOTAL 0.2 mg/dL (0.2-1.0); INDIRECT BILIRUBIN 0.1 mg/dL (0.0-1.1); TOTAL PROTEIN, SERUM 5.8 g/dL (6.4-8.2)
[2016-06-22 11:13] LABS: THYROID STIMULATING HORMONE 1.147 uIU/mL (0.358-3.74)
[2016-06-22 11:14] LABS: LACTIC ACID 2.2 mmol/L (0.4-2.0)
[2016-06-22 11:46] LABS: *LACTIC ACID REFLEX FLAG YES
[2016-06-22 12:00] VITALS: BP_SYST 120; BP_SYST 124; BP_DIAS 78; BP_DIAS 83
[2016-06-22] MEDS: METFORMIN 850 MG TABLET PO SCH ×2 (13:35→16:31)
[2016-06-22 16:00] VITALS: BP 130/76
[2016-06-22] MEDS ORDERED: Metformin Hcl PO (16:39)
[2016-06-22] MEDS ORDERED: HYDR-3658 PO (16:39)
== END 2016-06-22 19:00 | disposition home or self-care (01) | DRG 720 ==
LOC: ER 10:33 → ICU 12:34 → TELE1 06-19 18:01
PROVIDERS: ADMIT Internal Medicine; ATTEND Internal Medicine
PROC: B548ZZA Ultrasonography of Superior Vena Cava, Guidance (ICD-10-PCS; principal; 2016-06-15)
PROC: 0HQLXZZ Repair Left Lower Leg Skin, External Approach (ICD-10-PCS; principal; 2016-06-15)
PROC: 02HV33Z Insertion of Infusion Device into Superior Vena Cava, Percutaneous Approach (ICD-10-PCS; principal; 2016-06-15)
DX: A41.9 Sepsis, unspecified organism (principal); J96.01 Acute respiratory failure with hypoxia; N17.0 Acute kidney failure with tubular necrosis; E13.10 Other specified diabetes mellitus with ketoacidosis without coma; D69.6 Thrombocytopenia, unspecified; G92 Toxic encephalopathy; E86.0 Dehydration; E87.3 Alkalosis; E44.0 Moderate protein-calorie malnutrition; E87.6 Hypokalemia; G40.909 Epilepsy, unspecified, not intractable, without status epilepticus; J20.9 Acute bronchitis, unspecified; K76.0 Fatty (change of) liver, not elsewhere classified; R74.0 Nonspecific elevation of levels of transaminase and lactic acid dehydrogenase [LDH]; M62.50 Muscle wasting and atrophy, not elsewhere classified, unspecified site; F33.1 Major depressive disorder, recurrent, moderate; F43.10 Post-traumatic stress disorder, unspecified; I10 Essential (primary) hypertension; S81.812A Laceration without foreign body, left lower leg, initial encounter; X58.XXXA Exposure to other specified factors, initial encounter; Y93.9 Activity, unspecified; Y92.009 Unspecified place in unspecified non-institutional (private) residence as the place of occurrence of the external cause; R65.20 Severe sepsis without septic shock; Z68.26 Body mass index [BMI] 26.0-26.9, adult
CPT/HCPCS: 36415; 36569; 36600; 70450-TC; 71010-TC; 76700-TC; 80048-TC; 80076-TC; 80202-TC; 80305; 81000-TC; 82140-TC; 82247-TC; 82248-TC; 82947-TC; 82962-TC; 83605-TC; 83735-TC; 84100-TC; 84132-TC; 84439-TC; 84443-TC; 84484-TC; 85025-TC; 85730-TC; 86850-TC; 86901; 87040-TC; 87081-TC; 87086-TC; 94799-TC; 97001-TC; A4606; A6253; A6402; A9563; C1751; C9113; G0480; J0692; J1650; J1815; J1940; J2060; J2405; J2543; J3370; J3475; J3480; J3490; J7030; J7040; J7050; J7060; Q9967; Z7610

== ENCOUNTER 2019-04-03 02:20 | Inpatient (IN) | payer OTHER ==
[~2019-04-03] VITALS: Ht 160 cm; Wt 74.8 kg
[2019-04-03] VITALS (8 sets, daily range): BP systolic 145–184; BP diastolic 74–103
[~2019-04-03 02:20] MED LIST changes: +HYDR-3980 PO; -METH10TA2 PO; +Metformin Hcl PO
[2019-04-03] MEDS ORDERED: MORPHINE SULFATE INJ 2 MG/ML DISP.SYRIN IV ONE (02:30)
[2019-04-03] MEDS ORDERED: IV NS 0.9% 500 ML BAG IV ONE (02:30)
[2019-04-03] MEDS ORDERED: ONDANSETRON HCL/PF 4 MG/2 ML VIAL IVP ONE (02:30)
[2019-04-03] MEDS ORDERED: ASPIRIN 81 MG TAB.CHEW PO ONE (02:30)
[2019-04-03] MEDS ORDERED: ONDANSETRON HCL/PF 4 MG/2 ML VIAL ONE (02:46)
[2019-04-03] MEDS ORDERED: MORPHINE SULFATE INJ 4 MG/ML DISP.SYRIN ONE (02:47)
--- NOTE | 2019-04-03 03:18 | NUR ---
EDWARD FROM HOME TO ER BED 3. AAOX4. NO RESP DISTRESS NOTED. TRANSFERRED FROM [facility] TO BED ON HER OWN WITH STANDBY ASSIST. C/O NOT FEELING WELL. PT REPORTS THAT @ 5PM PT STARTED TO FEEL THAT HER BS IS LOW AND STARTED HAVING CHEST PRESSURE. PT REPORTS THE SHE FELT THE S/S OF HYPOGLYCEMIA X 4 TIMES WHICH WAS PROGRSSIVELY GETTING WORST AND CALLED FOR THE DATE NIGHT SITTER. PT REPORTS HER CHEST PRESSURE @ 3/10 STARTED 5PM, NON RADIATING. NO S/S OF HYPOGLYCEMIA NOTED. EMS REPORTS BS AT 79 HAND PACKER. MD AT BEDSIDE FOR EVAL. ORDERS RECEIVED NOTED AND CARRIED OUT.
[2019-04-03] MEDS ORDERED: ASPIRIN 81 MG TAB.CHEW ONE (03:19)
--- NOTE | 2019-04-03 03:21 | NUR ---
XRAY AT BEDSIDE
[2019-04-03 03:41] LABS: CALCIUM, SERUM 8.4 mg/dL (8.5-10.1); CARBON DIOXIDE 26 mmol/L (21-32); CHLORIDE 106 mmol/L (98-107); CREATININE 0.8 mg/dL (0.6-1.3); GLUCOSE 183 mg/dL (74-106); POTASSIUM 3.7 mmol/L (3.5-5.1); SODIUM SERUM 138 mmol/L (136-145); UREA NITROGEN, BLOOD 14 mg/dL (7-18)
[2019-04-03 03:47] LABS: BASOPHILS % (AUTO) 0.3 % (0.0-2.0); EOSINOPHILS % (AUTO) 1.6 % (0.0-6.0); HEMATOCRIT 40 % (33-45); HEMOGLOBIN 13.6 g/dL (11.5-14.8); LYMPHOCYTES # (AUTO) 0.7 /CMM (0.8-4.8); LYMPHOCYTES % (AUTO) 15.9 % (20.0-44.0); MEAN CORPUSCULAR HGB CONC 34 g/dl (31.0-36.0); MEAN CORPUSCULAR VOLUME 86 fL (82-100); MONOCYTES # (AUTO) 0.3 /CMM (0.1-1.30); MONOCYTES % (AUTO) 5.9 % (2.0-12.0); NEUTROPHILS # (AUTO) 3.4 /CMM (1.8-8.9); NEUTROPHILS % (AUTO) 76.3 % (43.0-81.0); PLATELET COUNT (AUTO) 109 /CMM (150-450); RED BLOOD CELL COUNT(AUTO) 4.67 MIL/uL (4.0-5.2); WHITE BLOOD COUNT (AUTO) 4.5 K/uL (4.3-11.0)
[2019-04-03 03:54] LABS: B-TYPE NATRIURETIC PEPTIDE 320 PG/ML (0-125); LIPASE 20 U/L (73-393)
--- NOTE | 2019-04-03 04:25 | NUR ---
spoke with Preffered Case Kenan for clinical information.
--- NOTE | 2019-04-03 05:00 | NUR ---
Report given to SUPRIYA Magdaleno for [facility].
--- NOTE | 2019-04-03 06:13 | NUR ---
PT TRANSPORTED TO UNIT ON [facility] W/ ACLS PROTOCOL. NAD NOTED DURING TRANSPORT. PT AMBULATED FROM [facility] TO BED W/O ASSIST ON STEADY GAIT
--- NOTE | 2019-04-03 06:15 | NUR ---
NEW ADMISSION NOTE PT ADMITTED FROM ER FOR CP TO [facility]YSIC[facility]. PT IN NO APPARENT DISTRESS ON RA BREATHING EVEN AND UNLABORED. PT WAS BIBRA D/T NOT FEELING WELL, CHEST TIGHTNESS. PT DENIES CP AT THIS TIME. PT ORIENTED TO ROOM. VSS. SR PADDED UP X2 BED LOCKED CALL LIGHT IN REACH. TELE APPLIED PT IS SR WITH OCCASIONAL PAC'S.
[2019-04-03] MEDS ORDERED: MAGNESIUM HYDROXIDE 30 ML UDC PO PRN (06:30)
[2019-04-03] MEDS ORDERED: ZOLPIDEM TARTRATE 5 MG TABLET PO PRN (06:30)
[2019-04-03] MEDS ORDERED: ONDANSETRON HCL/PF 4 MG/2 ML VIAL IVP PRN (06:30)
[2019-04-03] MEDS ORDERED: Z GUARD REMEDY 2 OZ OINT TP PRN (06:30)
[2019-04-03] MEDS ORDERED: MAG HYDROX/AL HYDROX/SIMETH 30 ML UDC PO PRN (06:30)
[2019-04-03] MEDS ORDERED: ACETAMINOPHEN 325 MG TABLET PO PRN (06:30)
[2019-04-03] MEDS ORDERED: TRAZ-182 PO (07:42)
[2019-04-03] MEDS ORDERED: ZOLP10TA6 PO (08:00)
[2019-04-03] MEDS ORDERED: MORP15TA PO (08:00)
[2019-04-03] MEDS ORDERED: GABA600T12 PO (08:00)
[2019-04-03] MEDS ORDERED: LOSA50TA39 PO (08:00)
[2019-04-03] MEDS ORDERED: PROP20TA7 PO (08:00)
[2019-04-03] MEDS ORDERED: INSU100V7 SQ (08:00)
[2019-04-03] MEDS ORDERED: AMIT50TA3 PO (08:00)
[2019-04-03] MEDS ORDERED: SUCR1TAB PO (08:00)
[2019-04-03] MEDS ORDERED: MELO-107 PO (08:00)
[2019-04-03] MEDS ORDERED: INSU100V27 SQ (08:00)
[2019-04-03] MEDS ORDERED: CLON0.2T PO (08:00)
--- NOTE | 2019-04-03 08:00 | NUR ---
BUILDING MAINTENANCE MECHANIC AM NOTE PT ALERT AND ORIENTED X 4 IN NO APPARENT DISTRESS ON RA BREATHING EVEN AND UNLABORED. PT WAS BIBRA D/T NOT FEELING WELL, CHEST TIGHTNESS. PT DENIES CP AT THIS TIME. NPO FOR CTA WITH 3D IMAGE. SR PADDED UP X2 BED LOCKED CALL LIGHT WITHIN REACH. TELE APPLIED PT IS SR. 64
[2019-04-03 08:55] LABS: THYROID STIMULATING HORMONE 0.773 uIU/mL (0.358-3.74)
[2019-04-03] MEDS ORDERED: ATORVASTATIN 40 MG TABLET PO SCH (09:00)
[2019-04-03] MEDS: PANTOPRAZOLE 40 MG TABLET.DR PO SCH (09:15)
[2019-04-03] MEDS ORDERED: IOHEXOL-350 100 ML VIAL IV ONE (10:21)
[2019-04-03] MEDS ORDERED: CT SWABBABLE VALVE TRANS SET 1 EA INFUS.SET MC ONE (10:21)
[2019-04-03] MEDS ORDERED: IV NS 0.9% 250 ML IV ONE (10:21)
[2019-04-03] MEDS: HYDROCODONE/APAP 5/325MG 1 EACH TABLET PO PRN ×2 (12:13→16:18)
[2019-04-03] MEDS: METOPROLOL TARTRATE 50 MG TABLET PO SCH ×2 (12:19→16:18)
[2019-04-03] MEDS: ENOXAPARIN SODIUM 40 MG/0.4 ML DISP.SYRIN SQ SCH (12:24)
[2019-04-03] MEDS ORDERED: METOPROLOL TARTRATE INJ 5 MG/5 ML AMPUL ONE (12:49)
[2019-04-03] MEDS ORDERED: NITROGLYCERIN 0.4 MG/TAB BOTTLE ONE (12:49)
[2019-04-03] MEDS ORDERED: DEXTROSE 50%-WATER 50 ML DISP.SYRIN IV PRN (13:00)
[2019-04-03] MEDS ORDERED: METOPROLOL TARTRATE INJ 5 MG/5 ML AMPUL IVP PRN (13:00)
[2019-04-03] MEDS ORDERED: NITROGLYCERIN 0.4 MG/TAB BOTTLE SL ONE (13:00)
--- NOTE | 2019-04-03 17:19 | NUR ---
AT 1600,PT'S BP WAS 183/103 HR 68 AND GAVE LOPRESSOR 50 MG PO WITH NORCO DUE TO C/O HEADACHE AND ZOFRAN DUE TO C/O NAUSEA.RECHECKED AT 1700 AND PT'S BP IS STILL 182/99 HR 65.NOTIFIED LISA HILL WITH ORDERS FOR CLONIDINE PRN.
[2019-04-03] MEDS: BLOOD SUGAR DIAGNOSTIC 1 EACH STRIP IN SCH ×2 (17:23→21:04)
[2019-04-03] MEDS ORDERED: CLONIDINE HCL 0.1 MG TABLET PO PRN (17:30)
--- NOTE | 2019-04-03 18:04 | NUR ---
Pts BS: 424 before eating dinner.LISA Eddy made aware with orders to administer 20 units as per aggressive sl scale but pt refused and only wanted 15 units.Pt ate 100%dinner. Will recheck BS later Addendum: 04/03/19 at 1806 by DICK TRUONG RN PLS IGNORE ABOVE NOTES.DOCUMENTED ON THE WRONG PT.
--- NOTE | 2019-04-03 18:34 | NUR ---
PT RESTING IN BED DENYING ANY PAIN OR DISTRESS.DENIES CHEST PAIN.CHANGED HER CLOTHES TO HOSPITAL GOWN. CALL LIGHT PLACED WITHIN REACH.
[2019-04-03] MEDS: MORPHINE SULFATE IR 15 MG TABLET PO SCH (20:09)
--- NOTE | 2019-04-03 20:33 | NUR ---
RN NOTES PATIENT IN BED, ALERT AND ORIENTED X4, ROOM AIR, CALM, COMPLAINING OF EPIGASTRIC PAIN OF 10/10, BP ELEVATED, GIVEN MORPHINE IR SCHEDULED, REPORTED NO APPETITE, DINNER TRAY AT THE BEDSIDE, KEPT SAFE, CALL LIGHT WITHIN REACH.
[2019-04-03] MEDS: INSULIN REGULAR, HUMAN 100 UNIT/ML 3 ML VIAL SQ PRN (21:11)
[2019-04-03] MEDS ORDERED: AMITRIPTYLINE HCL 25 MG TABLET PO SCH (22:00)
[2019-04-03] MEDS ORDERED: INSULIN GLARGINE, 100 UNIT/ML CARTRIDGE SQ SCH (22:00)
[2019-04-03] MEDS ORDERED: TRAZODONE 50 MG TABLET PO SCH (22:00)
[2019-04-04] MEDS: METOPROLOL TARTRATE 50 MG TABLET PO SCH ×4 (00:04→18:01)
[2019-04-04 04:00] VITALS: BP 140/74
[2019-04-04] MEDS: HYDROCODONE/APAP 5/325MG 1 EACH TABLET PO PRN (04:05)
[2019-04-04] MEDS: BLOOD SUGAR DIAGNOSTIC 1 EACH STRIP IN SCH ×3 (06:34→17:59)
[2019-04-04] MEDS: INSULIN REGULAR, HUMAN 100 UNIT/ML 3 ML VIAL SQ PRN ×3 (06:35→17:59)
--- NOTE | 2019-04-04 06:35 | NUR ---
RN NOTES BG 116 MG/DL, NO INSULIN GIVEN, RECEIVED LANTUS 40 UNITS
--- NOTE | 2019-04-04 06:36 | NUR ---
RN NOTES PATIENT IS ALERT AND ORIENTED X4, ROOM AIR, CHRONIC BACK PAIN, MORPHINE IR ROUTINE, + NORCO PRN, INDEPENDENT WITH ADLS., SINUS EKTA ON THE TELE, METOPROLOL GIVEN DURING SHIFT, VS STABLE, ECHO DONE, CT ANGIO WITH NORMAL FINDINGS, REFUSING PERIPHERAL BLOOD DRAW, PREFERS MIDLINE, EXPLAINED TO PATIENT USING MIDLINE DOES NOT PROVIDE ENOUGH BLOOD SAMPLE, OBTAINED ENOUGH SAMPLE FOR TROPONIN
--- NOTE | 2019-04-04 07:15 | NUR ---
PIT SHOVEL OPERATOR OPENING NOTES RECEIVED PATIENT IN BED, ALERT AND AWAKE, ORIENTED X4. HOB ELEVATED. NO SOB. DENIES ANY C/O PAIN NOR DISCOMFORT AT THIS TIME. ON TELE MONITORING SINUS EKTA WITH RATE OF 56. ABLE TO VERBALIZE NEEDS. RT WRIST # 20 AND RAC MIDLINE INTACT AND PATENT WITHOUT S/S OF COMPLICATIONS. BED IN LOWEST POSITION, LOCKED. CALL LIGHT WITHIN REACH. BED SIDERAILS UP X2.
[2019-04-04 07:32] LABS: BASOPHILS % (AUTO) 0.4 % (0.0-2.0); EOSINOPHILS % (AUTO) 1.1 % (0.0-6.0); HEMATOCRIT 44 % (33-45); HEMOGLOBIN 14.8 g/dL (11.5-14.8); LYMPHOCYTES # (AUTO) 0.9 /CMM (0.8-4.8); LYMPHOCYTES % (AUTO) 15.7 % (20.0-44.0); MEAN CORPUSCULAR HGB CONC 34 g/dl (31.0-36.0); MEAN CORPUSCULAR VOLUME 86 fL (82-100); MONOCYTES # (AUTO) 0.4 /CMM (0.1-1.30); MONOCYTES % (AUTO) 6.7 % (2.0-12.0); NEUTROPHILS # (AUTO) 4.2 /CMM (1.8-8.9); NEUTROPHILS % (AUTO) 76.1 % (43.0-81.0); PLATELET COUNT (AUTO) 126 /CMM (150-450); RED BLOOD CELL COUNT(AUTO) 5.17 MIL/uL (4.0-5.2); WHITE BLOOD COUNT (AUTO) 5.5 K/uL (4.3-11.0)
[2019-04-04 07:40] LABS: ALANINE AMINOTRANSFERASE 22 U/L (12-78); ALBUMIN 3.2 g/dL (3.4-5.0); ALKALINE PHOSPHATASE 104 U/L (46-116); ASPARTATE AMINOTRANSFERASE 24 U/L (15-37); BILIRUBIN,TOTAL 0.3 mg/dL (0.2-1.0); CALCIUM, SERUM 8.7 mg/dL (8.5-10.1); CARBON DIOXIDE 27 mmol/L (21-32); CHLORIDE 105 mmol/L (98-107); CREATININE 0.8 mg/dL (0.6-1.3); GLUCOSE 127 mg/dL (74-106); MAGNESIUM 1.4 mg/dL (1.8-2.4); PHOSPHORUS 4.3 mg/dL (2.5-4.9); POTASSIUM 3.9 mmol/L (3.5-5.1); SODIUM SERUM 140 mmol/L (136-145); TOTAL PROTEIN, SERUM 6.6 g/dL (6.4-8.2); UREA NITROGEN, BLOOD 10 mg/dL (7-18)
[2019-04-04 08:00] VITALS: BP 153/77
[2019-04-04] MEDS: PANTOPRAZOLE 40 MG TABLET.DR PO SCH (08:26)
[2019-04-04] MEDS: MORPHINE SULFATE IR 15 MG TABLET PO SCH (08:27)
[2019-04-04] MEDS: ENOXAPARIN SODIUM 40 MG/0.4 ML DISP.SYRIN SQ SCH (08:30)
[2019-04-04] MEDS ORDERED: LOSARTAN POTASSIUM 50 MG TABLET PO SCH (09:00)
[2019-04-04] MEDS ORDERED: MELOXICAM 7.5 MG TABLET PO SCH (09:00)
[2019-04-04] MEDS ORDERED: ATORVASTATIN 10 MG TABLET PO SCH (09:00)
[2019-04-04] MEDS ORDERED: ASPIRIN 81 MG TAB.CHEW PO SCH (09:00)
[2019-04-04] MEDS ORDERED: SUCRALFATE 1 G TABLET PO SCH (09:00)
[2019-04-04] MEDS ORDERED: CLONIDINE HCL 0.1 MG TABLET PO SCH (09:00)
[2019-04-04 09:27] LABS: CHOLESTEROL 101 mg/dL (<200); HDL CHOLESTEROL 35 mg/dL (40-60); LDL 61 mg/dL (0-99); TRIGLYCERIDES 58 mg/dL (30-150)
[2019-04-04 11:14] LABS: THYROID STIMULATING HORMONE 1.363 uIU/mL (0.358-3.74)
[2019-04-04] MEDS: Magnesium 1GM/D5W 100ML PREMIX 100 ML IV SCH ×4 (12:24→16:04)
[2019-04-04] MEDS ORDERED: ATOR10TA PO (15:45)
[2019-04-04 16:00] VITALS: BP 133/76
[2019-04-04 18:01] VITALS: BP 133/76
--- NOTE | 2019-04-04 18:33 | NUR ---
MS RN CLOSING/ DISCHARGE NOTES ALERT AND ORIENTED X4. HOB ELEVATED. NO SOB. DENIES ANY C/O PAIN NOR DISCOMFORT. DENIES ANY C/O CHEST PAIN. FOR DISCHARGE WITH DISCHARGE PACKET AND INSTRUCTIONS GIVEN AND DISCUSSED WITH PATIENT AND VERBALIZES UNDERSTANDING. IV ACCESS SITE REMOVED WITH CATHETER TIP INTACT, WITHOUT S/S OF COMPLICATIONS. CLOTHING PROVIDED AND GIVEN TO PATIENT [place]. [id number] [place]OUNT NO. [id number] FROM [facility] TO [address] [place] [address] WITH A TOTAL OF $19.00. ALL BELONGINGS ACCOUNTED FOR. AMBULATORY WITH STEADY GAIT. PATIENT LEFT IN STABLE CONDITION.
== END 2019-04-04 18:28 | disposition home or self-care (01) | DRG 756 ==
LOC: ER 02:20 → TELE 04:39 → MED 04-04 08:44
PROVIDERS: ADMIT Hospitalist; ATTEND Hospitalist
DX: F41.9 Anxiety disorder, unspecified (principal); E11.649 Type 2 diabetes mellitus with hypoglycemia without coma; G40.909 Epilepsy, unspecified, not intractable, without status epilepticus; G89.4 Chronic pain syndrome; I10 Essential (primary) hypertension; M54.5 Low back pain; E83.42 Hypomagnesemia; I34.0 Nonrheumatic mitral (valve) insufficiency
CPT/HCPCS: 36415; 71045-TC; 75574; 80048-TC; 80053-TC; 80061-TC; 82962-TC; 83690-TC; 83735-TC; 83880; 84100-TC; 84439-TC; 84443-TC; 84484-TC; 85025-TC; 87081-TC; 93307-TC; G0378; J1650; J1815; J2270; J2405; J3475; J3490; J7040; J7050; Q9967

== ENCOUNTER 2019-05-16 12:06 | Inpatient (IN) | payer OTHER ==
[~2019-05-16] VITALS: Ht 165.1 cm; Wt 69.9 kg
[~2019-05-16 12:06] MED LIST changes: +AMIT50TA3 PO; +ATOR10TA PO; +CLON0.2T PO; +GABA600T12 PO; +INSU100V27 SQ; +INSU100V7 SQ; +LOSA50TA39 PO; +MELO-107 PO; +MORP15TA PO; -Metformin Hcl PO; +PROP20TA7 PO; +SUCR1TAB PO; +TRAZ-182 PO; +ZOLP10TA6 PO
--- NOTE | 2019-05-16 12:13 | NUR ---
BIBRA 102 FROM HOME C/O LOW BLOOD SUGAR 38MG/DL D10 250ML GIVEN UI SOFTWARE ENGINEER, LATEST BG 191, PT AWAKE, ALERT, -SOB, NAD NOTED, VSS, PENDING MD SMITH
[2019-05-16] MEDS ORDERED: IV NS 0.9% 1,000 ML BAG IV ONE (12:30)
[2019-05-16 13:07] LABS: APPEARANCE,URINE Clear (CLEAR); BILIRUBIN,URINE Negative (NEGATIVE); BLOOD, URINE Negative Ery/uL (NEGATIVE); COLOR,URINE Yellow (YELLOW); KETONES,URINE Negative (NEGATIVE); LEUKOCYTE ESTERASE ,URINE Trace (NEGATIVE); NITRITE, URINE Negative (NEGATIVE); PROTEIN,URINE Negative (NEGATIVE); UGLUCOSE 500 MG/DL mg/dL (NEGATIVE); UROBILINOGEN,URINE 0.2 EU/dL (0.2)
[2019-05-16 13:09] LABS: BASOPHILS % (AUTO) 0.4 % (0.0-2.0); HEMATOCRIT 45 % (33-45); HEMOGLOBIN 14.5 g/dL (11.5-14.8); LYMPHOCYTES # (AUTO) 0.8 /CMM (0.8-4.8); MEAN CORPUSCULAR HGB CONC 33 g/dl (31.0-36.0); MEAN CORPUSCULAR VOLUME 88 fL (82-100); MONOCYTES # (AUTO) 0.8 /CMM (0.1-1.30); MONOCYTES % (AUTO) 8.9 % (2.0-12.0); NEUTROPHILS # (AUTO) 7.3 /CMM (1.8-8.9); NEUTROPHILS % (AUTO) 79.7 % (43.0-81.0); PLATELET COUNT (AUTO) 159 /CMM (150-450); RED BLOOD CELL COUNT(AUTO) 5.07 MIL/uL (4.0-5.2); WHITE BLOOD COUNT (AUTO) 9.2 K/uL (4.3-11.0)
--- NOTE | 2019-05-16 13:15 | NUR ---
CAT MIDDLE CARD TENDER CALL WHEN ALL LABS AND IMAGING BACK
[2019-05-16 13:25] LABS: ALANINE AMINOTRANSFERASE 28 U/L (12-78); ALBUMIN 2.8 g/dL (3.4-5.0); ALKALINE PHOSPHATASE 107 U/L (46-116); ASPARTATE AMINOTRANSFERASE 45 U/L (15-37); BILIRUBIN,DIRECT 0.1 mg/dL (0.0-0.2); BILIRUBIN,TOTAL 0.6 mg/dL (0.2-1.0); CALCIUM, SERUM 8.3 mg/dL (8.5-10.1); CARBON DIOXIDE 24 mmol/L (21-32); CHLORIDE 104 mmol/L (98-107); CREATININE 0.6 mg/dL (0.6-1.3); GLUCOSE 61 mg/dL (74-106); SODIUM SERUM 136 mmol/L (136-145); TOTAL PROTEIN, SERUM 6.2 g/dL (6.4-8.2); UREA NITROGEN, BLOOD 11 mg/dL (7-18)
[2019-05-16 13:35] LABS: BACTERIA,URINE Rare /HPF (None Seen); RBC,URINE NONE SEEN /HPF (0-2); SQUAMOUS EPITHELIAL CELL,UR Few /HPF (None Seen); WBC,URINE 21-50 /HPF (0-3)
[2019-05-16] MEDS ORDERED: OXYC5CAP18 PO (13:38)
--- NOTE | 2019-05-16 13:41 | NUR ---
CALLED [facility] PAGED
--- NOTE | 2019-05-16 13:44 | NUR ---
VERBAL AUTH FROM INSURANCE FROM [employer] AUTH#[id number]
--- NOTE | 2019-05-16 13:55 | NUR ---
CALLED FOR TELE BED FROM [facility]
[2019-05-16] MEDS ORDERED: DEXTROSE 50%-WATER 50 ML DISP.SYRIN ONE (14:06)
--- NOTE | 2019-05-16 14:17 | NUR ---
REPORT GIVEN TO YONG EPPS FOR CHANA PT WILL BE TRANSPORTED TO 1ST FLOOR
[2019-05-16] MEDS ORDERED: DEXTROSE 50%-WATER 50 ML DISP.SYRIN IVP ONE (14:30)
--- NOTE | 2019-05-16 14:39 | NUR ---
TRANSPORTED TO [address] [place] [id number]
--- NOTE | 2019-05-16 15:00 | NUR ---
PT CAME BY HERMELINDO AND PLACED IN ROOM 118-2. PT DENIES ANY SOB AT PRESENT MOMENT BUT DOES SAY SHE IS IN PAIN 8 OUT OF 10 GENERALIZED PAIN. PT IS DROWSY BP TAKEN AND WAS LOW 75/48. CHRISTINA FOY ORDERED 1 L BOLUS OF NS STAT. WILL CONTINUE ADMISSION WHEN PT HEMODYNAMICALLY STABLE.
[2019-05-16] MEDS ORDERED: MAG HYDROX/AL HYDROX/SIMETH 30 ML UDC PO PRN (15:30)
[2019-05-16] MEDS ORDERED: ACETAMINOPHEN 325 MG TABLET PO PRN (15:30)
[2019-05-16] MEDS ORDERED: Z GUARD REMEDY 2 OZ OINT TP PRN (15:30)
[2019-05-16] MEDS ORDERED: IV NS 0.9% 1,000 ML IV ONE (15:30)
[2019-05-16] MEDS ORDERED: MAGNESIUM HYDROXIDE 30 ML UDC PO PRN (15:30)
[2019-05-16] MEDS ORDERED: ONDANSETRON HCL/PF 4 MG/2 ML VIAL IVP PRN (15:30)
[2019-05-16 16:00] VITALS: BP 95/65
[2019-05-16] MEDS: IV D5/0.45 NACL 1,000 ML IV PRN (16:52)
--- NOTE | 2019-05-16 17:00 | NUR ---
1 TO 1 SITTER ORDERED.
[2019-05-16] MEDS: CEPHALEXIN MONOHYDRATE 250 MG CAPSULE PO SCH (17:23)
[2019-05-16] MEDS: PROPRANOLOL HCL 10 MG TABLET PO SCH (17:23)
[2019-05-16] MEDS: oxyCODONE IR immediate release 5 MG PO PRN ×2 (17:24→23:54)
--- NOTE | 2019-05-16 17:25 | NUR ---
DURING ADMISSION PT STATED SHE DOES THINK ABOUT ENDING HER OWN LIFE. CHRISTINA FOY NOTIFIED AND PT MOVED TO ROOM 105 NEAR NURSING STATION.
[2019-05-16] MEDS: INSULIN ASPART/LISPRO 100 UNIT/ML CARTRIDGE SQ SCH (17:27)
--- NOTE | 2019-05-16 19:15 | NUR ---
RN OPENING NOTES: PATIENT IN BED, AWAKE, AND VERBALLY RESPONSIVE. NO RESPIRATORY DISTRESS. SITTER AT BEDSIDE. ON FREQUENT VISUAL MONITORING. NO EPISODES OF SUICIDAL THOUGHTS AT THIS TIME. IV ACCESS (R) WRIST 22G INTACT, PATENT, AND FLUSHING WELL, RUNNING D5W. SAFETY PRECAUTIONS IMPLEMENTED. BED LOCKED, ALARM ON, AND IN LOWEST POSITION. HOB ELEVATED. SIDE RAILS X 2 UP. CALL LIGHT PLACED WITHIN REACH. WILL CONT. TO MONITOR.
--- NOTE | 2019-05-16 19:20 | NUR ---
RN CLOSING NOTE PATIENT IS IN BED RESTING WITH HOB ELEVATED. BREATHING IS EVEN AND NON LABORED. A&O X3, AFEBRILE. RESPONSIVE TO VERBAL AND TACTILE STIMULI. IN NO APPARENT DISTRESS NOTED AT THIS TIME. ALL DUE MEDS GIVEN AND TOLERATED WELL. PATIENT IS ON ROUNDING CHECK EVERY 15 MINUTES FOR SUICIDE PRECAUTIONS. VITAL SIGNS STABLE AT THIS TIME. CALL LIGHT IS WITHIN EASY REACH. WILL ENDORSE TO TAX MANAGER CPA RN.
[2019-05-16 20:00] VITALS: BP 93/50
[2019-05-16] MEDS: MORPHINE SULFATE IR 15 MG TABLET PO SCH (20:12)
--- NOTE | 2019-05-16 21:15 | NUR ---
RN NOTE: DR. LONGO AT BEDSIDE FOR PSYCH CONSULT. MADE AWARE OF PATIENT VERBALIZING SUICIDAL THOUGHTS IN AM SHIFT. NEW ORDERS NOTED AND CARRIED OUT.
[2019-05-16] MEDS ORDERED: AMITRIPTYLINE HCL 50 MG TABLET PO SCH (22:00)
[2019-05-16] MEDS: AMITRIPTYLINE HCL 25 MG TABLET PO SCH (22:03)
[2019-05-16] MEDS: TRAZODONE 50 MG TABLET PO SCH (22:03)
[2019-05-16] MEDS: QUETIAPINE FUMARATE 25 MG TABLET PO SCH (22:03)
[2019-05-16] MEDS ORDERED: FLUVOXAMINE MALEATE 50 MG TABLET ONE (22:28)
[2019-05-16] MEDS: FLUVOXAMINE MALEATE 50 MG TABLET PO SCH (22:30)
[2019-05-16] MEDS: INSULIN GLARGINE, 100 UNIT/ML CARTRIDGE SQ SCH (22:32)
[2019-05-17] VITALS (10 sets, daily range): BP systolic 83–142; BP diastolic 57–82
[2019-05-17] MEDS: oxyCODONE IR immediate release 5 MG PO PRN ×5 (04:06→21:36)
--- NOTE | 2019-05-17 04:45 | NUR ---
RN NOTE: IV SITE ON (R) WRIST G22 INFILTRATED. REMOVED IV SITE, PATIENT TOLERATED PROCEDURE WELL, WILL INSERT A NEW IV SITE.
--- NOTE | 2019-05-17 05:00 | NUR ---
RN NOTE: NEW IV ACCESS INSERTED ON RIGHT HAND G24, PATIENT TOLERATED PROCEDURE WELL.
--- NOTE | 2019-05-17 06:00 | NUR ---
RN NOTE: INFLUENZA SPECIMEN COLLECTED. LAB MADE AWARE FOR RUBBER EXTRUSION MACHINE OPERATOR.
[2019-05-17] MEDS: IV D5/0.45 NACL 1,000 ML IV PRN (06:34)
--- NOTE | 2019-05-17 07:30 | NUR ---
RN CLOSING NOTES: PATIENT IN BED, AWAKE, AND VERBALLY RESPONSIVE. NO RESPIRATORY DISTRESS. NO HYPOGLYCEMIA OR EPISODES OF SYNCOPE. SITTER AT BEDSIDE. ON FREQUENT VISUAL MONITORING. CONT. ON ROUNDING Q 15 MINS. NO EPISODES OF SUICIDAL THOUGHTS AT THIS TIME. IV ACCESS (R) HAND 24G INTACT, PATENT, AND FLUSHING WELL, RUNNING D5W. SAFETY PRECAUTIONS IMPLEMENTED. BED LOCKED, ALARM ON, AND IN LOWEST POSITION. HOB ELEVATED. SIDE RAILS X 2 UP. CALL LIGHT PLACED WITHIN REACH. ENDORSED TO AM SHIFT NURSE FOR CONTINUITY OF CARE.
[2019-05-17] MEDS: PANTOPRAZOLE 40 MG VIAL IV SCH (08:11)
[2019-05-17] MEDS: SUCRALFATE 1 G TABLET PO SCH (08:11)
[2019-05-17] MEDS: INSULIN ASPART/LISPRO 100 UNIT/ML CARTRIDGE SQ SCH ×3 (08:15→17:32)
[2019-05-17] MEDS: MORPHINE SULFATE IR 15 MG TABLET PO SCH ×2 (08:17→20:03)
[2019-05-17] MEDS: FLUVOXAMINE MALEATE 50 MG TABLET PO SCH ×3 (08:17→17:31)
[2019-05-17] MEDS: MELOXICAM 7.5 MG TABLET PO SCH (08:18)
[2019-05-17] MEDS: CEPHALEXIN MONOHYDRATE 250 MG CAPSULE PO SCH ×2 (08:19→17:30)
[2019-05-17] MEDS: GABAPENTIN 300 MG CAPSULE PO SCH (08:20)
[2019-05-17] MEDS: LOSARTAN POTASSIUM 50 MG TABLET PO SCH (08:23)
[2019-05-17] MEDS: CLONIDINE HCL 0.1 MG TABLET PO SCH (08:23)
[2019-05-17] MEDS: PROPRANOLOL HCL 10 MG TABLET PO SCH ×3 (08:24→17:29)
[2019-05-17] MEDS ORDERED: ATORVASTATIN 10 MG TABLET PO SCH (09:00)
[2019-05-17] MEDS ORDERED: CLONIDINE HCL 0.2 MG TABLET PO SCH (09:00)
[2019-05-17] MEDS: QUETIAPINE FUMARATE 25 MG TABLET PO SCH ×2 (09:26→21:27)
[2019-05-17 09:35] LABS: BASOPHILS % (AUTO) 0.8 % (0.0-2.0); EOSINOPHILS % (AUTO) 2.8 % (0.0-6.0); HEMATOCRIT 41 % (33-45); HEMOGLOBIN 13.5 g/dL (11.5-14.8); LYMPHOCYTES # (AUTO) 0.6 /CMM (0.8-4.8); LYMPHOCYTES % (AUTO) 21.4 % (20.0-44.0); MEAN CORPUSCULAR HGB CONC 33 g/dl (31.0-36.0); MEAN CORPUSCULAR VOLUME 87 fL (82-100); MONOCYTES # (AUTO) 0.3 /CMM (0.1-1.30); MONOCYTES % (AUTO) 11.3 % (2.0-12.0); NEUTROPHILS # (AUTO) 1.8 /CMM (1.8-8.9); NEUTROPHILS % (AUTO) 63.7 % (43.0-81.0); PLATELET COUNT (AUTO) 78 /CMM (150-450); RED BLOOD CELL COUNT(AUTO) 4.66 MIL/uL (4.0-5.2); WHITE BLOOD COUNT (AUTO) 2.9 K/uL (4.3-11.0)
[2019-05-17 09:42] LABS: CALCIUM, SERUM 7.8 mg/dL (8.5-10.1); CREATININE 0.8 mg/dL (0.6-1.3); MAGNESIUM 1.3 mg/dL (1.8-2.4); PHOSPHORUS 3.7 mg/dL (2.5-4.9); POTASSIUM 3.6 mmol/L (3.5-5.1)
[2019-05-17 09:53] LABS: THYROID STIMULATING HORMONE 0.194 uIU/mL (0.358-3.74)
[2019-05-17] MEDS: Magnesium 1GM/D5W 100ML PREMIX 100 ML IV SCH ×2 (11:18→12:21)
[2019-05-17 12:01] LABS: EOSINOPHILS % (MANUAL) 2 % (0-4); LYMPHOCYTES % (MANUAL) 19 % (16-48); MONOCYTES % (MANUAL) 11 % (0-11.0); NEUTROPHILS % (MANUAL) 68 (42-76)
[2019-05-17] MEDS: BLOOD SUGAR DIAGNOSTIC 1 EACH STRIP IN SCH ×3 (12:33→22:17)
[2019-05-17] MEDS ORDERED: IV NS 0.9% 1,000 ML IV STA (12:39)
[2019-05-17 17:59] LABS: THYROID STIMULATING HORMONE 0.255 uIU/mL (0.358-3.74)
[2019-05-17 18:01] LABS: D-DIMER 0.45 mg/L(FEU (0.17-0.50)
--- NOTE | 2019-05-17 19:00 | NUR ---
RN OPENING NOTES: PATIENT IN BED, AWAKE, AND VERBALLY RESPONSIVE. NO RESPIRATORY DISTRESS. SITTER AT BEDSIDE. ON FREQUENT VISUAL MONITORING AND ROUNDING Q 15 MINS. NO EPISODES OF SUICIDAL THOUGHTS AT THIS TIME. IV ACCESS (R) HAND 24G INTACT, PATENT, AND FLUSHING WELL. SALINE LOCKED. SAFETY PRECAUTIONS IMPLEMENTED. BED LOCKED, ALARM ON, AND IN LOWEST POSITION. HOB ELEVATED. SIDE RAILS X 2 UP. CALL LIGHT PLACED WITHIN REACH. WILL CONT. TO MONITOR.
[2019-05-17] MEDS: TRAZODONE 50 MG TABLET PO SCH (21:27)
[2019-05-17] MEDS: AMITRIPTYLINE HCL 25 MG TABLET PO SCH (21:27)
--- NOTE | 2019-05-17 22:00 | NUR ---
RN NOTE: DR. LONGO AT BEDSIDE FOR PSYCH CONSULT WITH NEW ORDERS.
[2019-05-17] MEDS: INSULIN GLARGINE, 100 UNIT/ML CARTRIDGE SQ SCH (22:20)
[2019-05-18] VITALS: BP 104/46
[2019-05-18] MEDS: oxyCODONE IR immediate release 5 MG PO PRN ×3 (01:40→13:19)
[2019-05-18 04:00] VITALS: BP 124/49
[2019-05-18 06:51] LABS: BASOPHILS % (AUTO) 0.2 % (0.0-2.0); EOSINOPHILS % (AUTO) 5.6 % (0.0-6.0); HEMATOCRIT 39 % (33-45); HEMOGLOBIN 12.9 g/dL (11.5-14.8); LYMPHOCYTES # (AUTO) 0.8 /CMM (0.8-4.8); LYMPHOCYTES % (AUTO) 33.2 % (20.0-44.0); MEAN CORPUSCULAR HGB CONC 33 g/dl (31.0-36.0); MEAN CORPUSCULAR VOLUME 87 fL (82-100); MONOCYTES # (AUTO) 0.3 /CMM (0.1-1.30); MONOCYTES % (AUTO) 12.4 % (2.0-12.0); NEUTROPHILS # (AUTO) 1.1 /CMM (1.8-8.9); NEUTROPHILS % (AUTO) 48.6 % (43.0-81.0); PLATELET COUNT (AUTO) 89 /CMM (150-450); RED BLOOD CELL COUNT(AUTO) 4.51 MIL/uL (4.0-5.2); WHITE BLOOD COUNT (AUTO) 2.3 K/uL (4.3-11.0)
--- NOTE | 2019-05-18 07:00 | NUR ---
RN CLOSING NOTES: PATIENT IN BED, AWAKE, AND VERBALLY RESPONSIVE. NO SOB NOTED. SITTER AT BEDSIDE. ON FREQUENT VISUAL MONITORING AND ROUNDING Q 15 MINS. NO EPISODES OF SUICIDAL THOUGHTS AT THIS TIME. IV ACCESS (R) HAND 24G INTACT, PATENT, AND FLUSHING WELL. SALINE LOCKED. SAFETY PRECAUTIONS IMPLEMENTED. BED LOCKED, ALARM ON, AND IN LOWEST POSITION. HOB ELEVATED. SIDE RAILS X 2 UP. NO BM DURING SHIFT. PENDING STOOL OB COLLECTION. ENDORSED TO AM SHIFT NURSE FOR CONTINUITY OF CARE.
[2019-05-18 07:25] LABS: CALCIUM, SERUM 8.3 mg/dL (8.5-10.1); CREATININE 0.8 mg/dL (0.6-1.3); MAGNESIUM 1.8 mg/dL (1.8-2.4); PHOSPHORUS 3.5 mg/dL (2.5-4.9); POTASSIUM 3.5 mmol/L (3.5-5.1)
[2019-05-18 07:59] LABS: BAND % (MANUAL) 1 % (0.0-5.0); EOSINOPHILS % (MANUAL) 5 % (0-4); LYMPHOCYTES % (MANUAL) 25 % (16-48); MONOCYTES % (MANUAL) 10 % (0-11.0); NEUTROPHILS % (MANUAL) 59 (42-76)
[2019-05-18 08:00] VITALS: BP 113/62
--- NOTE | 2019-05-18 08:00 | NUR ---
TELE1/RN AM SHIFT INITIAL NOTES RECEIVED PT AWAKE IN BED WITH SITTER AT BEDSIDE, PT A/OX 4, NO ACUTE CHANGE OF CONDITION NOTED, DENIES ANY SYMPTOMS. PT VERY PLEASANT DENIES PLAN OF HURTING HERSELF. ON 2L O2 VIA N/C SATURATING @ 92%, RESPIRATIONS EVEN & UNLABORED, LUNG SOUNDS CLEAR. ON TELE WITH SINUS RHYTHM, HR 65. IV SITE FLUSHED, PATENT, NO S/S OF INFECTION, SL. BLOOD GLUCOSE CHECKED, 173, NO S/S OF HYPERGLYCEMIA. PT IS COMFORTABLE, SCHEDULED AM MEDS TO BE GIVEN. CL WITHIN REACHED AND SAFETY MAINTAINED. ON GOING MONITORING.
[2019-05-18] MEDS: BLOOD SUGAR DIAGNOSTIC 1 EACH STRIP IN SCH ×3 (09:43→17:34)
[2019-05-18] MEDS: INSULIN ASPART/LISPRO 100 UNIT/ML CARTRIDGE SQ SCH ×3 (09:45→17:35)
[2019-05-18] MEDS: PANTOPRAZOLE 40 MG VIAL IV SCH (09:46)
[2019-05-18] MEDS: CEPHALEXIN MONOHYDRATE 250 MG CAPSULE PO SCH ×2 (09:48→17:37)
[2019-05-18] MEDS: QUETIAPINE FUMARATE 25 MG TABLET PO SCH (09:48)
[2019-05-18] MEDS: CLONIDINE HCL 0.1 MG TABLET PO SCH (09:48)
[2019-05-18] MEDS: SUCRALFATE 1 G TABLET PO SCH (09:48)
[2019-05-18] MEDS: PROPRANOLOL HCL 10 MG TABLET PO SCH ×3 (09:48→17:37)
[2019-05-18] MEDS: MELOXICAM 7.5 MG TABLET PO SCH (09:49)
[2019-05-18] MEDS: LOSARTAN POTASSIUM 50 MG TABLET PO SCH (09:49)
[2019-05-18] MEDS: MORPHINE SULFATE IR 15 MG TABLET PO SCH (09:49)
[2019-05-18] MEDS: GABAPENTIN 300 MG CAPSULE PO SCH (09:49)
[2019-05-18] MEDS: FLUVOXAMINE MALEATE 50 MG TABLET PO SCH ×3 (09:50→17:37)
[2019-05-18 12:00] VITALS: BP 132/69
--- NOTE | 2019-05-18 13:30 | NUR ---
TELE1/RN ROUNDS - Fidelia FOY NP UPDATED PT'S CONDITION. PT SEEN & EXAMINED BY CHRISTINA FOY. PER CLAY MINER IF CLEARED BY DR. SALINAS TO BE DISCHARGE HOME AND FOLLOW-UP DR. EATON, OWN CHOOSE OF PORTAL ADMINISTRATOR AND INSIDE SALES ACCOUNT REPRESENTATIVE. PT VERBALIZED UNDERSTANDING OF PLAN. MONITORING CONTINUED.
[2019-05-18] MEDS ORDERED: QUET25TA PO (13:41)
[2019-05-18] MEDS ORDERED: CEPH250C PO (13:41)
[2019-05-18] MEDS ORDERED: FLUV50TA10 PO (13:41)
[2019-05-18] MEDS ORDERED: TRAZ-252 PO (13:41)
[2019-05-18 16:00] VITALS: BP_SYST 124; BP_SYST 166; BP_DIAS 75; BP_DIAS 81
--- NOTE | 2019-05-18 17:30 | NUR ---
TELE1/RN AFTERNOON ROUNDS NO CHANGE OF CONDITION.
[2019-05-18 17:37] VITALS: BP 124/75
--- NOTE | 2019-05-18 18:26 | NUR ---
blas1/rn Addendum: 05/18/19 at 1834 by RUBY MANCUSO RN ERROR IN CHARTING
--- NOTE | 2019-05-18 18:26 | NUR ---
TELE1/RODDING ANODE WORKER - HOME DISCHARGE INSTRUCTIONS AND DOCUMENTS GIVEN TO PT, VERBALIZED UNDERSTANDING. IV SITE REMOVED, PRESSURE DRESSING APPLIED, NO S/S OF INFECTION. ID BAND REMOVED. PERSONAL BELONGINGS RETURNED TO PT, INVENTORY LOG SIGNED OFF. PT LEFT TELE1 UNIT VIA WHEELCHAIR IN STABLE CONDITION, ACCOMPANIED BY BLUEPRINT CLERK TO AN AWAITING LIFT TRANSPORTATION TO [facility] IN [address] [place] [address] IN [place].
[2019-05-18] MEDS ORDERED: TRAZODONE 50 MG TABLET PO SCH (22:00)
[2019-05-20 10:06] LABS: HIV SCRN 4G wRFX Non Reactive (Non Reactive)
[2019-05-20 14:11] LABS: *ANA ANTI-CENTROMERE B AB <0.2 AI (0.0-0.9); *ANA ANTI-DNA(DS) AB, QN <1 IU/mL (0-9); *ANA ANTI-JO-1 <0.2 AI (0.0-0.9); *ANA ANTICHROMATIN ANTIBODY <0.2 AI (0.0-0.9); *ANA RNP ANTIBODIES 0.2 AI (0.0-0.9); *ANA SJOGREN'S ANTI-SS-A <0.2 AI (0.0-0.9); *ANA SJOGREN'S ANTI-SS-B <0.2 AI (0.0-0.9); *ANAANTI-SCLERODERMA-70 AB <0.2 AI (0.0-0.9); *ANASMITH AB <0.2 AI (0.0-0.9)
[2019-05-21 05:06] LABS: IMMUNOGLOBULIN A, SERUM 403 mg/dL (87-352); IMMUNOGLOBULIN G, SERUM 866 mg/dL (700-1600); IMMUNOGLOBULIN M, SERUM 154 mg/dL (26-217)
[2019-05-22 09:07] LABS: *SPE ALPHA-1-GLOBULIN 0.3 g/dL (0.0-0.4); *SPE ALPHA-2-GLOBULIN 0.8 g/dL (0.4-1.0); *SPE BETA GLOBULIN 1.2 g/dL (0.7-1.3); *SPE M-SPIKE Not Observed g/dL (Not Observed); *SPEGAMMA GLOBULIN 0.8 g/dL (0.4-1.8)
== END 2019-05-18 18:30 | disposition home or self-care (01) | DRG 720 ==
LOC: ER 12:07 → TELE1 14:13
PROVIDERS: ADMIT Registered Nurse; ATTEND Registered Nurse
DX: A41.9 Sepsis, unspecified organism (principal); R65.21 Severe sepsis with septic shock; G92 Toxic encephalopathy; D61.811 Other drug-induced pancytopenia; E11.649 Type 2 diabetes mellitus with hypoglycemia without coma; R55 Syncope and collapse; N39.0 Urinary tract infection, site not specified; B96.89 Other specified bacterial agents as the cause of diseases classified elsewhere; E86.1 Hypovolemia; E83.42 Hypomagnesemia; I10 Essential (primary) hypertension; K21.9 Gastro-esophageal reflux disease without esophagitis; F25.9 Schizoaffective disorder, unspecified; G89.4 Chronic pain syndrome; F17.210 Nicotine dependence, cigarettes, uncomplicated; R56.9 Unspecified convulsions; R45.851 Suicidal ideations; F32.9 Major depressive disorder, single episode, unspecified; F29 Unspecified psychosis not due to a substance or known physiological condition
CPT/HCPCS: 36415; 70450-TC; 71045-TC; 73564-TC; 80048-TC; 80061-TC; 80076-TC; 81000-TC; 82728-TC; 82784; 82962-TC; 83540-TC; 83605-TC; 83615-TC; 83735-TC; 84100-TC; 84155; 84165; 84439-TC; 84443-TC; 84484-TC; 85025-TC; 85045-TC; 85396; 86140-TC; 86225; 86235; 86334; 86431-TC; 86677; 87040-TC; 87081-TC; 87086-TC; 93307-TC; 93880-TC; 97116-TC; 97530-TC; C9113; G0378; J1815; J3475; J3490; J7030

== ENCOUNTER 2020-04-17 19:07 | Inpatient (IN) | payer OTHER ==
[~2020-04-17] VITALS: Ht 167.6 cm; Wt 92.1 kg
[~2020-04-17 19:07] MED LIST changes: -AMIT50TA3 PO; +CEPH250C PO; +FLUV50TA10 PO; -HYDR-3980 PO; +OXYC5CAP18 PO; +QUET25TA PO; +TRAZ-252 PO; -ZOLP10TA6 PO
--- NOTE | 2020-04-17 19:13 | NUR ---
PT AAOX1. TO NAME ONLY. PT BIBRA FROM HOME, C/O BEING ALTERED, LAST KNOWN WELL TIME WAS AT 12 NOON. PT WAS PLACED IN BED 10 ON RESIDENT ASSOCIATE AND PULSE OX. PT WAS NOTED TACHY AT 146. MD AT BEDSIDE FOR EVAL. AWAITING ORDERS. PT ABLE TO PROVIDE NAME BUT NOT ANY OTHER INFORMATION. PT ABLE TO FOLLOW COMMANDS.
--- NOTE | 2020-04-17 19:20 | NUR ---
CALLED LAB FOR COVID SWAB
[2020-04-17] MEDS ORDERED: HALOPERIDOL LACTATE INJ 5 MG/ML VIAL IM ONE (19:30)
[2020-04-17] MEDS ORDERED: IV NS 0.9% 1,000 ML BAG IV ONE ×2 (19:30→21:00)
[2020-04-17] MEDS ORDERED: HALOPERIDOL LACTATE INJ 5 MG/ML VIAL ONE (19:30)
--- NOTE | 2020-04-17 19:34 | NUR ---
BLOOD COLLECTED AND SENT TO LAB
--- NOTE | 2020-04-17 19:39 | NUR ---
URINE COLLECTED SENT TO LAB.
--- NOTE | 2020-04-17 19:47 | NUR ---
INFLUENZA SWAB SENT TO LAB
[2020-04-17] MEDS ORDERED: LORAZEPAM INJ 2 MG/ML VIAL ONE (19:52)
[2020-04-17] MEDS ORDERED: LORAZEPAM INJ 2 MG/ML VIAL IV ONE (20:00)
--- NOTE | 2020-04-17 20:06 | NUR ---
CALLED RESP REGARDING ABG
[2020-04-17 20:10] LABS: BASOPHILS % (AUTO) 0.3 % (0.0-2.0); HEMATOCRIT 35 % (33-45); HEMOGLOBIN 11.3 g/dL (11.5-14.8); LYMPHOCYTES # (AUTO) 1.4 /CMM (0.8-4.8); LYMPHOCYTES % (AUTO) 17.3 % (20.0-44.0); MEAN CORPUSCULAR HGB CONC 32 g/dl (31.0-36.0); MEAN CORPUSCULAR VOLUME 89 fL (82-100); MONOCYTES # (AUTO) 0.7 /CMM (0.1-1.30); MONOCYTES % (AUTO) 8.4 % (2.0-12.0); NEUTROPHILS # (AUTO) 5.9 /CMM (1.8-8.9); PLATELET COUNT (AUTO) 147 /CMM (150-450); RED BLOOD CELL COUNT(AUTO) 3.98 MIL/uL (4.0-5.2)
[2020-04-17 20:28] LABS: BILIRUBIN,URINE NEGATIVE (NEGATIVE); COLOR,URINE YELLOW (YELLOW); LEUKOCYTE ESTERASE ,URINE NEGATIVE (NEGATIVE); NITRITE, URINE NEGATIVE (NEGATIVE); PH,URINE 5.5 (5.0-8.0); PROTEIN,URINE NEGATIVE (NEGATIVE); UGLUCOSE >=1000 mg/dL (NEGATIVE); UROBILINOGEN,URINE 0.2 EU/dL (0.2)
--- NOTE | 2020-04-17 20:31 | NUR ---
BROUGHT TO CT AND BACK.
--- NOTE | 2020-04-17 20:31 | NUR ---
RESP AT BEDSIDE FOR ABG
--- NOTE | 2020-04-17 20:33 | NUR ---
LAB CALLED REGARDING NEGATIVE COVID RESULT.
[2020-04-17 20:40] LABS: BACTERIA,URINE RARE /HPF (None Seen); RBC,URINE 0-2 /HPF (0-2); SQUAMOUS EPITHELIAL CELL,UR 0-2 /HPF (None Seen); WBC,URINE 0-2 /HPF (0-3)
[2020-04-17 20:41] LABS: YEAST,URINE Moderate /HPF (None Seen)
[2020-04-17 20:47] LABS: D-DIMER 6.34 mg/L(FEU (0.17-0.50)
[2020-04-17 20:49] LABS: ABG BASE EXCESS -5.8 mmol/L; ABG OXYGEN SATURATION 83.4 % (92.0-98.5); ABG PCO2 44.2 mmHg (35.0-45.0); ABG PH 7.286 (7.350-7.450); ABG PO2 55.6 mmHg (75.0-100.0); AaDO2 613.2 mmHg; O2Hb 81.7 % (94.0-97.0); SITE, ABG Right Radial; VENT MODE, BG NRB 15L 100%
--- NOTE | 2020-04-17 20:52 | NUR ---
PT REMAINS ON NON REBREATHER 15L, SAT 96%.
--- NOTE | 2020-04-17 20:55 | NUR ---
BG 366, MD AWARE.
[2020-04-17] MEDS ORDERED: AZITHROMYCIN 500 MG VIAL ONE (20:58)
[2020-04-17] MEDS ORDERED: CEFTRIAXONE 1GM BAG (ER ONLY) 50 ML IV ONE ×2 (20:58→21:00)
[2020-04-17] MEDS ORDERED: INSULIN REGULAR, HUMAN 100 UNIT/ML 10 ML VIAL ONE (20:58)
[2020-04-17] MEDS ORDERED: AZITHROMYCIN 500 MG in IV D5W 250 ML IV ONE (21:00)
[2020-04-17] MEDS ORDERED: CEFTRIAXONE 1GM BAG (ER ONLY) 1 GM/50 ML PIGGYBACK IV ONE (21:00)
[2020-04-17] MEDS ORDERED: INSULIN REGULAR, HUMAN 100 UNIT in IV NS 0.9% 100 ML IV PRN ×2 (21:00)
[2020-04-17 21:24] LABS: CALCIUM, SERUM 7.9 mg/dL (8.5-10.1); CARBON DIOXIDE 22 mmol/L (21-32); CHLORIDE 100 mmol/L (98-107); CREATININE 2.2 mg/dL (0.6-1.3); POTASSIUM 4.4 mmol/L (3.5-5.1); SERUM AMMONIA 36 umol/L (11-32); SODIUM SERUM 138 mmol/L (136-145); UREA NITROGEN, BLOOD 35 mg/dL (7-18)
[2020-04-17] MEDS ORDERED: IV PREMIX NS +20MEQ KCL 1,000 L IV PRN (21:30)
[2020-04-17 21:37] LABS: ALANINE AMINOTRANSFERASE 26 U/L (12-78); ALBUMIN 2.5 g/dL (3.4-5.0); ALKALINE PHOSPHATASE 59 U/L (46-116); ASPARTATE AMINOTRANSFERASE 76 U/L (15-37); B-TYPE NATRIURETIC PEPTIDE 4157 PG/ML (0-125); BILIRUBIN,TOTAL 0.5 mg/dL (0.2-1.0); THYROID STIMULATING HORMONE 0.521 uIU/mL (0.358-3.74)
[2020-04-17 21:46] LABS: GLUCOSE 352 mg/dL (74-106)
[2020-04-17 21:47] LABS: CALCIUM, SERUM 7.9 mg/dL (8.5-10.1); CARBON DIOXIDE 23 mmol/L (21-32); CHLORIDE 101 mmol/L (98-107); CREATININE 2.1 mg/dL (0.6-1.3); GLUCOSE 349 mg/dL (74-106); POTASSIUM 4.5 mmol/L (3.5-5.1); SODIUM SERUM 139 mmol/L (136-145); UREA NITROGEN, BLOOD 35 mg/dL (7-18)
[2020-04-17] MEDS ORDERED: IOHEXOL-350 100 ML VIAL IV ONE (21:51)
[2020-04-17] MEDS ORDERED: CT SWABBABLE VALVE TRANS SET 1 EA INFUS.SET MC ONE (21:51)
[2020-04-17] MEDS ORDERED: IV NS 0.9% 250 ML IV ONE (21:51)
[2020-04-17 21:52] LABS: ACETAMINOPHEN 1 ug/ml (10-30); ALANINE AMINOTRANSFERASE 25 U/L (12-78); ALBUMIN 2.5 g/dL (3.4-5.0); ALCOHOL, BLOOD < 3 mg/dL (0-0); ALKALINE PHOSPHATASE 59 U/L (46-116); ASPARTATE AMINOTRANSFERASE 76 U/L (15-37); BILIRUBIN,DIRECT 0.3 mg/dL (0.0-0.2); BILIRUBIN,TOTAL 0.5 mg/dL (0.2-1.0)
[2020-04-17 21:55] LABS: CREATINE KINASE, TOTAL 578 U/L (26-192); FERRITIN 71 ng/mL (8-388)
[2020-04-17] MEDS ORDERED: IV PREMIX NS +20MEQ KCL 1 L IV ONE (21:59)
[2020-04-17 22:04] LABS: C-REACTIVE PROTEIN 12.8 mg/dL (0.0-0.9)
--- NOTE | 2020-04-17 22:20 | NUR ---
PT BROUGHT TO CT, UNABLE TO OBTAIN CTP DUE TO PT CONT. MOVING. PT BROUGHT BACK TO ROOM 16.
--- NOTE | 2020-04-17 22:54 | NUR ---
REPORT GIVEN TO CLAY EPPS FOR CHANA
--- NOTE | 2020-04-17 22:55 | NUR ---
Received report from SUPRIYA John for [facility].
[2020-04-17] MEDS ORDERED: MAGNESIUM HYDROXIDE 30 ML UDC PO PRN (23:30)
[2020-04-17] MEDS ORDERED: MAG HYDROX/AL HYDROX/SIMETH 30 ML UDC PO PRN (23:30)
[2020-04-17] MEDS ORDERED: Z GUARD REMEDY 2 OZ OINT TP PRN (23:30)
[2020-04-17] MEDS ORDERED: ZOLPIDEM TARTRATE 5 MG TABLET PO PRN (23:30)
[2020-04-17] MEDS ORDERED: ACETAMINOPHEN 325 MG TABLET PO PRN (23:30)
[2020-04-17] MEDS ORDERED: ONDANSETRON HCL/PF 4 MG/2 ML VIAL IVP PRN (23:30)
[2020-04-18] VITALS (27 sets, daily range): BP systolic 84–132; BP diastolic 46–83
--- NOTE | 2020-04-18 00:10 | NUR ---
Spoke [facility]/ [facility] in regards to pt's Lovenox 40mg SQ daily ordered. Pharmacist recommended changing to 30mg SQ daily based on renal function. Paged Dr. Quach, awaiting reply.
--- NOTE | 2020-04-18 00:17 | NUR ---
PT TRANSFERED PER ACLS PROTOCOL
--- NOTE | 2020-04-18 00:54 | NUR ---
COMMISSION SPECIALISTHAND TUBE BENDER NOTE: Pt arrived to unit at 0015 via gurney accompanied by RN and EMT. Transferred to bed, hooked up to monitors, bed bath and skin check done. Pt A&Ox1-2, lethargic, arouses to light touch. ST on tele monitor. LAC #18 and RH #22 patent and flushed. Dressing c/d/i. IV NS w/ 20meq KCl infusing at 250ml/hr. On insulin drip from ER, Dr. Quach paged to clarify which protocol to use. Pt noted w/ belongings of credit card, $10 in kelly, glasses and Ipad. Spoke w/ pt about putting money and card in safe but pt refused, explained benefits. Roger catheter in place, patent and draining urine via gravity. Safety measures in place. Will continue to monitor.
--- NOTE | 2020-04-18 01:00 | NUR ---
BANNER PAINTER NOTE: Dr. Quach in unit. Clarified Lovenox order as well as IVF for pt and insulin protocol. Stated to use hospital policy for insulin drip. Gave ok to change Lovenox order per pharmacy recommendations. Gave order to continue NS w/ 20meq KCl at 250ml/hr. Orders noted and carried out. Pt also noted to be pulling off NRB mask, gown, BP cuff and attempting to remove lines and get out of bed. Redirected pt multiple times and pt not cooperating. Dr. Quach still in unit and gave ok for bilateral soft wrist restraints. Order noted and carried out. Will continue to monitor.
[2020-04-18] MEDS ORDERED: Potassium Chloride 20 MEQ in IV NS 0.9% 1,000 ML IV PRN (01:30)
[2020-04-18] MEDS: INSULIN REGULAR, HUMAN 100 UNIT in IV NS 0.9% 99 ML IV PRN ×4 (01:48→09:03)
[2020-04-18] MEDS: BLOOD SUGAR DIAGNOSTIC 1 EACH STRIP VI SCH ×10 (01:48→11:38)
[2020-04-18] MEDS ORDERED: DEXTROSE 50%-WATER 50 ML DISP.SYRIN IV PRN ×2 (02:00→12:00)
--- NOTE | 2020-04-18 02:08 | NUR ---
RETURN CHECKER NOTE: Pt noted to have removed restraints and gown, attempting to get out of bed. Explained to pt that she needs to stay in bed. Pt getting agitated. Dr. Quach in unit, gave orders for Ativan 1mg IVP Q4H PRN. Order noted and carried out. Will continue to monitor.
[2020-04-18] MEDS: LORAZEPAM INJ 2 MG/ML VIAL IV PRN ×2 (02:16→08:07)
[2020-04-18] MEDS ORDERED: IV PREMIX NS +20MEQ KCL 1 L IV ONE (02:51)
[2020-04-18] MEDS: IV PREMIX NS +20MEQ KCL 1 L IV PRN ×2 (03:16→08:01)
[2020-04-18 04:18] LABS: BASOPHILS % (AUTO) 0.3 % (0.0-2.0); EOSINOPHILS % (AUTO) 0.1 % (0.0-6.0); HEMATOCRIT 34 % (33-45); HEMOGLOBIN 10.7 g/dL (11.5-14.8); LYMPHOCYTES # (AUTO) 0.6 /CMM (0.8-4.8); LYMPHOCYTES % (AUTO) 7.7 % (20.0-44.0); MEAN CORPUSCULAR HGB CONC 31 g/dl (31.0-36.0); MEAN CORPUSCULAR VOLUME 91 fL (82-100); MONOCYTES # (AUTO) 0.9 /CMM (0.1-1.30); MONOCYTES % (AUTO) 11.9 % (2.0-12.0); NEUTROPHILS # (AUTO) 6.2 /CMM (1.8-8.9); PLATELET COUNT (AUTO) 145 /CMM (150-450); RED BLOOD CELL COUNT(AUTO) 3.79 MIL/uL (4.0-5.2); WHITE BLOOD COUNT (AUTO) 7.8 K/uL (4.3-11.0)
[2020-04-18 04:30] LABS: CALCIUM, SERUM 7.8 mg/dL (8.5-10.1); CREATININE 1.3 mg/dL (0.6-1.3); PHOSPHORUS 4.4 mg/dL (2.5-4.9); POTASSIUM 4.1 mmol/L (3.5-5.1)
[2020-04-18 04:42] LABS: THYROID STIMULATING HORMONE 0.468 uIU/mL (0.358-3.74)
--- NOTE | 2020-04-18 06:23 | NUR ---
WINDOWS DESKTOP SUPPORT NOTE: Rec'd call from Iron, pharmacist to clarify rate of NS w/ 20meq KCl w/ Dr. Quach. Dr. Quach agreed and reduced to 150ml/hr. Noted and carried out.
--- NOTE | 2020-04-18 07:15 | NUR ---
UTILITY TENDER CARDING CLOSING NOTES: Pt remains on 15LPM NRB mask. No SOB or resp distress noted throughout shift. A&Ox1-2, follows simple commands. ST on tele monitor. LAC #18 and RH #22 patent and flushed. NS w/ 20meq KCl infusing at 150ml/hr. Insulin drip infusing at 1 unit/hr. Bilateral soft wrist restraints in place. Roger catheter patent and draining urine via gravity. Kept clean/dry. All due meds given as ordered. Safety measures in place. Will endorse to oncoming nurse for CHANA.
[2020-04-18 08:43] LABS: ABG BASE EXCESS -4.7 mmol/L; ABG OXYGEN SATURATION 93.3 % (92.0-98.5); ABG PH 7.209 (7.350-7.450); ABG PO2 98.2 mmHg (75.0-100.0); AaDO2 554.8 mmHg; COHb 1.3 % (0.5-1.5); O2Hb 92.1 % (94.0-97.0); SITE, ABG Right Radial; VENT MODE, BG NRB
[2020-04-18] MEDS ORDERED: AMYL1CAP56 PO (08:48)
[2020-04-18] MEDS ORDERED: PROP40TA7 PO (08:48)
[2020-04-18] MEDS ORDERED: PANT40TA49 PO (08:48)
[2020-04-18] MEDS ORDERED: AMIT50TA3 PO (08:48)
[2020-04-18] MEDS ORDERED: AMLO-212 PO (08:48)
[2020-04-18] MEDS ORDERED: LORA-259 PO (08:48)
[2020-04-18] MEDS ORDERED: REPA0.5T6 PO (08:48)
[2020-04-18] MEDS ORDERED: TEMA15CA PO (08:48)
[2020-04-18] MEDS ORDERED: OXYC1TAB12 PO (08:48)
[2020-04-18] MEDS ORDERED: ONDA-97 PO (08:48)
[2020-04-18] MEDS ORDERED: PROPOFOL 100 ML IV PRN (09:00)
[2020-04-18] MEDS ORDERED: SODIUM BICARBONATE SYR 50 MEQ/50 ML DISP.SYRIN IV ONE (09:00)
[2020-04-18] MEDS ORDERED: ENOXAPARIN SODIUM 30 MG/0.3 ML DISP.SYRIN SQ SCH (09:00)
[2020-04-18] MEDS: PANTOPRAZOLE 40 MG VIAL IV SCH (09:02)
[2020-04-18 09:11] LABS: CALCIUM, SERUM 8.2 mg/dL (8.5-10.1); CREATININE 0.9 mg/dL (0.6-1.3); POTASSIUM 4.5 mmol/L (3.5-5.1)
--- NOTE | 2020-04-18 09:15 | NUR ---
PT APPEARED TO BE RESPIRATORY DISTRESS, PT INTUBATED AT THIS TIME PER MD ORDERS. PT SEDATED WITH PROPOFOL PER MD ORDERS.
--- NOTE | 2020-04-18 09:28 | NUR ---
RN NOTE 0830: Noted patient with still restlessness, increased WOB, HR 140's. 91-96% sat on 15L NRB mask. Informed Dr. Cooper, with order to to ABG. 09: ABG resulted, made Dr. Cooper aware, with order to intubate. 919: Intubated patient by ER MD, administered Etomidate 20mg and Brayan 65mg, verified with Maria Dolores EPPS. On 7.0/22cm lipline. DIRECTOR DIGITAL MARKETING restraints on for safety, will monitor.
[2020-04-18 10:32] LABS: ABG BASE EXCESS 2.5 mmol/L; ABG OXYGEN SATURATION 94.9 % (92.0-98.5); ABG PO2 116.4 mmHg (75.0-100.0); AaDO2 549.6 mmHg; COHb 0.5 % (0.5-1.5); O2Hb 94.4 % (94.0-97.0); SITE, ABG Right Radial; VENT MODE, BG AC 20 450 100% +5
[2020-04-18] MEDS ORDERED: IV NS 0.9% 1,000 ML IV ONE (12:00)
[2020-04-18] MEDS: IV NS 0.9% 1,000 ML IV PRN (13:04)
[2020-04-18] MEDS: PROPOFOL 100 ML IV PRN ×3 (13:19→23:25)
[2020-04-18] MEDS ORDERED: ETOMIDATE 2 MG/ML VIAL IV ONE (13:19)
[2020-04-18] MEDS ORDERED: ROCURONIUM BROMIDE 50 MG/5 ML IV ONE (13:20)
[2020-04-18] MEDS ORDERED: ROCURONIUM BROMIDE 50 MG/5 ML ONE (13:20)
[2020-04-18] MEDS ORDERED: ZOSYN IVPB 4.5 G in IV D5W 50ml IV ONE (13:30)
[2020-04-18] MEDS: BLOOD SUGAR DIAGNOSTIC 1 EACH STRIP IN SCH ×3 (13:55→21:47)
[2020-04-18] MEDS: INSULIN REGULAR, HUMAN 100 UNIT/ML 3 ML VIAL SQ PRN ×2 (13:56→18:39)
--- NOTE | 2020-04-18 15:21 | NUR ---
ATTEMPTED SCAN SEVERAL TIMES, PT UNCOOPERATIVE AND CONFUSED TO HOLD STILL DURING EXAM. ATTEMPTED SCAN AGAIN ON 04/18 AND PT STILL UNSTABLE.
--- NOTE | 2020-04-18 20:00 | NUR ---
END OF SHIFT NOTE: PT INTUBATED THIS AM AT 0915. TOLERATING MECH VENT AND VENT SETTINGS AT THIS TIME, O2 DECREASED TO 80% AT 1245. INSULIN GTT DC'D PER ORDERS. PER DR. ARNOLDO BATISTA TO START TONIGHT AND Q4H AGGRESSIVE SCALE STARTED. AT 1800 PT SPIKED A TEMP OF 104.1 R, RECTAL PROBE INSERTED, COOLING BLANKET APPLIED, HR ELEVATED TO 140'S. CULTURES SENT WITHIN PAST 24 HOURS, SPUTUM CULTURE SENT DURING THIS SHIFT. NO BM THIS SHIFT. PT CURRENTLY ON 50MCG/KG/MIN OF PROPOFOL PER MD ORDERS. PENDING COVID PCR RESULTS. PT CHECKED ON HOURLY AND PRN BY NURSING STAFF.
[2020-04-18] MEDS: PIPERACILLIN /TAZOBACTAM 3.375 G in IV D5W 100 ML IV SCH (20:27)
--- NOTE | 2020-04-18 22:00 | NUR ---
Placement of Left Nare NG tube with positive placement via auscultation and aspiration of gastric content by Primary and secondary RNs.
[2020-04-18] MEDS: INSULIN GLARGINE, 100 UNIT/ML CARTRIDGE SQ SCH (23:41)
[2020-04-19] VITALS (84 sets, daily range): BP systolic 70–150; BP diastolic 29–85
[2020-04-19] MEDS: INSULIN REGULAR, HUMAN 100 UNIT/ML 3 ML VIAL SQ PRN ×4 (01:43→18:40)
[2020-04-19] MEDS: BLOOD SUGAR DIAGNOSTIC 1 EACH STRIP IN SCH ×6 (01:44→21:22)
[2020-04-19] MEDS: PROPOFOL 100 ML IV PRN ×6 (03:38→20:49)
[2020-04-19] MEDS ORDERED: PHENYLEPHRINE 10 MG/ML VIAL ONE (04:29)
--- NOTE | 2020-04-19 04:30 | NUR ---
Patient blood pressure began to decrease to 70s and heart rate increased to 120 with breathing increasing to 40s. Began Andrew @ 0.5 mcg, Gave Ativan 1mg for agitation as well as increased propofol to 70. 0540- Patient is breathing with the vent at 20 bpm and blood pressure being controlled with Andrew titrate to keep SBP greater than 90. Will continue to monitor.
[2020-04-19] MEDS: PHENYLEPHRINE 50 MG in IV NS 0.9% 245 ML IV PRN ×2 (04:36→17:08)
[2020-04-19 04:41] LABS: BASOPHILS % (AUTO) 0.4 % (0.0-2.0); EOSINOPHILS % (AUTO) 0.2 % (0.0-6.0); HEMATOCRIT 32 % (33-45); HEMOGLOBIN 10.4 g/dL (11.5-14.8); LYMPHOCYTES # (AUTO) 0.7 /CMM (0.8-4.8); LYMPHOCYTES % (AUTO) 24.8 % (20.0-44.0); MEAN CORPUSCULAR HGB CONC 32 g/dl (31.0-36.0); MEAN CORPUSCULAR VOLUME 88 fL (82-100); MONOCYTES # (AUTO) 0.4 /CMM (0.1-1.30); MONOCYTES % (AUTO) 14.2 % (2.0-12.0); NEUTROPHILS # (AUTO) 1.7 /CMM (1.8-8.9); NEUTROPHILS % (AUTO) 60.4 % (43.0-81.0); PLATELET COUNT (AUTO) 88 /CMM (150-450); RED BLOOD CELL COUNT(AUTO) 3.64 MIL/uL (4.0-5.2); WHITE BLOOD COUNT (AUTO) 2.9 K/uL (4.3-11.0)
[2020-04-19] MEDS: LORAZEPAM INJ 2 MG/ML VIAL IV PRN (04:41)
[2020-04-19 04:48] LABS: ALBUMIN 2.2 g/dL (3.4-5.0); BILIRUBIN,TOTAL 0.8 mg/dL (0.2-1.0); CREATININE 0.6 mg/dL (0.6-1.3); MAGNESIUM 2.2 mg/dL (1.8-2.4); PHOSPHORUS 1.8 mg/dL (2.5-4.9); POTASSIUM 4.1 mmol/L (3.5-5.1)
[2020-04-19] MEDS: PIPERACILLIN /TAZOBACTAM 3.375 G in IV D5W 100 ML IV SCH ×3 (04:53→20:52)
[2020-04-19 05:05] LABS: ABG BASE EXCESS 1.8 mmol/L; ABG PCO2 35.5 mmHg (35.0-45.0); ABG PH 7.472 (7.350-7.450); ABG PO2 65.9 mmHg (75.0-100.0); AaDO2 467.2 mmHg; O2Hb 91.1 % (94.0-97.0); PEEP,BG 5 cm H2O; SITE, ABG Right Brachial; VENT MODE, BG AC 20/40 450 80% +5; VT, ABG 450 mL
[2020-04-19 06:28] LABS: BAND % (MANUAL) 4 % (0.0-5.0); LYMPHOCYTES % (MANUAL) 25 % (16-48); MONOCYTES % (MANUAL) 16 % (0-11.0); NEUTROPHILS % (MANUAL) 55 (42-76)
[2020-04-19] MEDS ORDERED: ENOXAPARIN SODIUM 30 MG/0.3 ML DISP.SYRIN SQ SCH (06:30)
[2020-04-19] MEDS: ACETAMINOPHEN 650 MG/20.3 ML UDC NG PRN ×2 (06:47→14:20)
--- NOTE | 2020-04-19 07:30 | NUR ---
ICU/RN PT IS INTUBATED ON THE VENT AC MODE,FIO2-80%.SAT O2-99%.SEDATED WITH DIPRIVAN .BILATERAL SOFT WRIST RESTRAINS ON.COOLING BLANKET ON .PERIFERAL IV .F/C DRAINING WITH UMBER URINE.NG TUBE CLAMPED.PT IS ON NEOSYNEPHRINE DRIP.SUCTION PROVIDED.WHITE THICK SECRETION WAITING FOR PCR COVID RESULT.
--- NOTE | 2020-04-19 07:36 | NUR ---
Patient is now in no acute distress in bed. vitals wnl as well as breathing is at vent rate. Patient continues on mariano at this time with temp at 99.9 on cooling blanket. endorse care to AM RN for continuity of care.
[2020-04-19] MEDS: PANTOPRAZOLE 40 MG VIAL IV SCH (08:16)
--- NOTE | 2020-04-19 09:00 | NUR ---
ICU/RN DUE MEDS ARE GIVEN ORDERED.LABS REVIEW.
[2020-04-19] MEDS: IV NS 0.9% 1,000 ML IV PRN (11:28)
--- NOTE | 2020-04-19 13:00 | NUR ---
ICU/RN NEW UPPER ARM PICC LINE INSERTED BY DR TULIO MCLAUGHLIN.CHEST X-RAY CONFIRMED.OK TO USE LINE.
[2020-04-19] MEDS ORDERED: Sodium Phosphate 15 MMOL in IV NS 0.9% 250 ML IV SCH (14:00)
--- NOTE | 2020-04-19 15:00 | NUR ---
ICU/RN PT HAS T-101.3.TYLENOL VIA NG TUBE GIVEN ORDERED.COOLING BLANKET ON.PT PCR TEST FOR COVID IS NEGATIVE.
--- NOTE | 2020-04-19 18:00 | NUR ---
ICU/RN PM CARE PROVIDED. DUE MEDS ARE GIVEN ORDERED.SUCTION PROVIDED .REPOSITION FOR COMFORT.
--- NOTE | 2020-04-19 21:00 | NUR ---
RN NOTES RT CHANGE FIO2 TO 45% AND INCREASED PEEP TO [address] DUENAS ORDER. SATURATION 906% NSR/ ST ON TELE MONITOR.
[2020-04-19] MEDS: INSULIN GLARGINE, 100 UNIT/ML CARTRIDGE SQ SCH (21:25)
[2020-04-20] VITALS (84 sets, daily range): BP systolic 84–136; BP diastolic 24–79
[2020-04-20] MEDS: ACETAMINOPHEN 650 MG/20.3 ML UDC NG PRN (00:29)
[2020-04-20] MEDS: PROPOFOL 100 ML IV PRN ×8 (00:30→22:17)
--- NOTE | 2020-04-20 00:30 | NUR ---
RN NOTES TYLENOL 650 MG ADMINISTERED DUE TO TEMP. 101.4 DEGREE FAHRENHEIT., COOLING MEASURES PROVIDED, COOLING BLANKET KEPT IN PLACED. WILL CONTINUE TO MONITOR.
[2020-04-20] MEDS: BLOOD SUGAR DIAGNOSTIC 1 EACH STRIP IN SCH ×6 (01:10→20:29)
[2020-04-20] MEDS: INSULIN REGULAR, HUMAN 100 UNIT/ML 3 ML VIAL SQ PRN ×2 (01:45→20:52)
[2020-04-20] MEDS: IV NS 0.9% 1,000 ML IV PRN (05:06)
[2020-04-20] MEDS: PIPERACILLIN /TAZOBACTAM 3.375 G in IV D5W 100 ML IV SCH ×2 (05:07→10:57)
--- NOTE | 2020-04-20 07:04 | NUR ---
RN NOTES PATIENT REMAINED SEDATED WITH DIPRIVAN. ETT AND VENT SETTING TOLERATED WELL. SATURATION REMAINED >94%. TEMPERATURE DECREASED TO 98.7 VIA CORE TEMP. NO ACUTE RESPIRATORY DISTRESS. NEOSYNEPHRINE RESTARTED AT 0530AM DUE TO SBP <90MMHG. IV SITE INTACT AND PATENT NEOSYNEPHRINE AND DIPRIVAN ONGOING TITRATED ORDERED. IVF CONTINUE TOLERATED. HUGHES CATH DRAINED VIA GRAVITY.KEPT PT CLEAN AND DRY. TURN AND REPOSITION Q2H AND PRN
--- NOTE | 2020-04-20 07:45 | NUR ---
ICU/RN PT IS INTUBATED ON THE VENT AC MODE,FIO2-45%,PEEP-8.SAT O2-99%.SEDATED ON DIPRIVAN.ON NEOSYNEPHRINE DRIP.RIGHT UPPER ARM PICC LINE.NG TUBE CLAMPED.PT IS NPO.F/C DRAINING WITH RICKI URINE.SUCTION PROVIDED.WITHE THICK SECRETION.REPOSITION FOR COMFORT.
[2020-04-20] MEDS: FAMOTIDINE/PF INJ 20 MG/2 ML VIAL IV SCH (08:03)
[2020-04-20 08:08] LABS: ABG BASE EXCESS 2.8 mmol/L; ABG OXYGEN SATURATION 95.7 % (92.0-98.5); ABG PCO2 31.2 mmHg (35.0-45.0); ABG PH 7.528 (7.350-7.450); ABG PO2 107.4 mmHg (75.0-100.0); COHb 1.1 % (0.5-1.5); O2Hb 94.6 % (94.0-97.0); PEEP,BG 8 cm H2O; SITE, ABG Right Radial; VT, ABG 450 mL
--- NOTE | 2020-04-20 08:32 | NUR ---
vent changes below made per dr. colmenares: ac 16 vt 400 ml peep +5 rn notified on above vent changes. Addendum: 04/20/20 at 0833 by ROBERT BANG RT Amended: Links added.
--- NOTE | 2020-04-20 09:00 | NUR ---
ICU/RN DUE MEDS ARE GIVEN ORDERED. SUCTION PROVIDED.REPOSITION FOR COMFORT.
[2020-04-20 09:28] LABS: BASOPHILS % (AUTO) 0.3 % (0.0-2.0); EOSINOPHILS % (AUTO) 2.8 % (0.0-6.0); HEMATOCRIT 26 % (33-45); HEMOGLOBIN 8.7 g/dL (11.5-14.8); LYMPHOCYTES # (AUTO) 0.3 /CMM (0.8-4.8); LYMPHOCYTES % (AUTO) 11.3 % (20.0-44.0); MEAN CORPUSCULAR HGB CONC 33 g/dl (31.0-36.0); MEAN CORPUSCULAR VOLUME 86 fL (82-100); MONOCYTES # (AUTO) 0.2 /CMM (0.1-1.30); MONOCYTES % (AUTO) 5.7 % (2.0-12.0); NEUTROPHILS # (AUTO) 2.4 /CMM (1.8-8.9); NEUTROPHILS % (AUTO) 79.9 % (43.0-81.0); PLATELET COUNT (AUTO) 86 /CMM (150-450); RED BLOOD CELL COUNT(AUTO) 3.06 MIL/uL (4.0-5.2)
[2020-04-20 10:38] LABS: BAND % (MANUAL) 3 % (0.0-5.0); EOSINOPHILS % (MANUAL) 3 % (0-4); LYMPHOCYTES % (MANUAL) 14 % (16-48); MONOCYTES % (MANUAL) 4 % (0-11.0); NEUTROPHILS % (MANUAL) 76 (42-76)
[2020-04-20 10:55] LABS: CALCIUM, SERUM 7.2 mg/dL (8.5-10.1); CREATININE 0.5 mg/dL (0.6-1.3); MAGNESIUM 1.8 mg/dL (1.8-2.4)
[2020-04-20] MEDS ORDERED: Sodium Phosphate 15 MMOL in IV NS 0.9% 245 ML IV SCH (11:00)
[2020-04-20 11:19] LABS: POTASSIUM 2.4 mmol/L (3.5-5.1)
--- NOTE | 2020-04-20 12:00 | NUR ---
ICU/RN K-2.4 .DR PEARSON NOTIFIED.NEW ORDERS RECEIVED.
[2020-04-20] MEDS: HYDROCODONE/APAP 5/325MG TABLET PO PRN (12:44)
[2020-04-20] MEDS: POTASSIUM CL. PREMIX PERIPHER. 50 ML IV SCH ×8 (13:53→22:36)
[2020-04-20] MEDS: AZITHROMYCIN 500 MG in IV D5W 250 ML IV SCH (18:35)
[2020-04-20] MEDS: VANCOMYCIN 1 GM in IV D5W 250ml IV SCH (18:35)
[2020-04-20 18:44] LABS: CALCIUM, SERUM 7.5 mg/dL (8.5-10.1); CREATININE 0.5 mg/dL (0.6-1.3)
[2020-04-20 18:44] LABS: BILIRUBIN,URINE SMALL (NEGATIVE); COLOR,URINE YELLOW (YELLOW); LEUKOCYTE ESTERASE ,URINE NEGATIVE (NEGATIVE); NITRITE, URINE NEGATIVE (NEGATIVE); PROTEIN,URINE TRACE mg/dl (NEGATIVE); UGLUCOSE 100 MG/DL mg/dL (NEGATIVE); UROBILINOGEN,URINE 0.2 EU/dL (0.2)
[2020-04-20 19:02] LABS: POTASSIUM 2.8 mmol/L (3.5-5.1)
[2020-04-20 19:02] LABS: BACTERIA,URINE Few /HPF (None Seen); SQUAMOUS EPITHELIAL CELL,UR Moderate /HPF (None Seen); YEAST,URINE Many /HPF (None Seen)
--- NOTE | 2020-04-20 19:13 | NUR ---
ICU/RN K-2.8. NOTIFIED.NEW ORDERS RECEIVED.
[2020-04-20] MEDS ORDERED: POTASSIUM CHLORIDE 20 MEQ POWDER PACKET GT ONE (19:30)
--- NOTE | 2020-04-20 19:30 | NUR ---
RN NOTES RECEIVED PATIENT ORALLY INTUBATED WITH ETT 7/22 CM AT LIP WITH VENT SETTING AC 16 TV 400 FIO2 45% PEEP 5 SEDATED WITH DIPRIVAN, TACHYPNEA PRESENT. RESP 30'S. ST HR ON 120 - 130'S ON TELE MONITOR. LT NGT CLAMPED INTACT , PATENCY CHECKED. NO RESIDUAL. IV SITE ON DEMETRIUS PICC LINE RUNNING WITH PROPOFOL, NS AND 2 IV ATB INTACT. WILL START 40 MEQ OF KCL MD ORDER DUE TO POTASSIUM 2.4 AFTER 40 MEQ ADMINISTER IN PREVIOUS SHIFT. TURN AND REPOSITION Q2H AND PRN. KEPT PT CLEAN AND DRY. WILL CLOSELY MONITOR.
--- NOTE | 2020-04-20 20:18 | NUR ---
Received Pt. on Vent AC 16 400 45% +5. ET tube 7.0 22cm @ lip. ET tube secured via anchor fast.Suctioned for moderate amounts of blood-tinged secretions. Ambu bag at bedside. Addendum: 04/20/20 at 2020 by BEST WRIGHT RT Amended: Links added.
[2020-04-20] MEDS: MEROPENEM 1 G in IV NS 0.9% 100 ML IV SCH (20:27)
[2020-04-20] MEDS: INSULIN GLARGINE, 100 UNIT/ML CARTRIDGE SQ SCH (22:02)
[2020-04-20] MEDS: LORAZEPAM INJ 2 MG/ML VIAL IV PRN (22:39)
[2020-04-21] VITALS (47 sets, daily range): BP systolic 91–152; BP diastolic 19–87
[2020-04-21] MEDS: IV NS 0.9% 1,000 ML IV PRN ×2 (01:18→15:08)
[2020-04-21] MEDS: PROPOFOL 100 ML IV PRN ×7 (01:19→22:58)
[2020-04-21] MEDS: BLOOD SUGAR DIAGNOSTIC 1 EACH STRIP IN SCH ×4 (01:23→17:30)
[2020-04-21] MEDS: IV NS 0.9% 250 ML IV PRN (01:54)
[2020-04-21] MEDS: MEROPENEM 1 G in IV NS 0.9% 100 ML IV SCH ×3 (04:54→20:16)
[2020-04-21 05:00] LABS: BASOPHILS % (AUTO) 0.5 % (0.0-2.0); EOSINOPHILS % (AUTO) 1.9 % (0.0-6.0); HEMATOCRIT 26 % (33-45); HEMOGLOBIN 8.5 g/dL (11.5-14.8); LYMPHOCYTES # (AUTO) 0.3 /CMM (0.8-4.8); LYMPHOCYTES % (AUTO) 14.3 % (20.0-44.0); MEAN CORPUSCULAR HGB CONC 33 g/dl (31.0-36.0); MEAN CORPUSCULAR VOLUME 85 fL (82-100); MONOCYTES # (AUTO) 0.2 /CMM (0.1-1.30); MONOCYTES % (AUTO) 9.1 % (2.0-12.0); NEUTROPHILS # (AUTO) 1.7 /CMM (1.8-8.9); NEUTROPHILS % (AUTO) 74.2 % (43.0-81.0); PLATELET COUNT (AUTO) 95 /CMM (150-450); RED BLOOD CELL COUNT(AUTO) 3.04 MIL/uL (4.0-5.2); WHITE BLOOD COUNT (AUTO) 2.2 K/uL (4.3-11.0)
[2020-04-21 05:11] LABS: CALCIUM, SERUM 7.5 mg/dL (8.5-10.1); CREATININE 0.5 mg/dL (0.6-1.3); PHOSPHORUS 1.4 mg/dL (2.5-4.9); POTASSIUM 3.4 mmol/L (3.5-5.1)
[2020-04-21 05:28] LABS: BAND % (MANUAL) 2 % (0.0-5.0); LYMPHOCYTES % (MANUAL) 10 % (16-48); MONOCYTES % (MANUAL) 9 % (0-11.0); NEUTROPHILS % (MANUAL) 79 (42-76)
[2020-04-21] MEDS: VANCOMYCIN 1 GM in IV D5W 250ml IV SCH ×2 (06:03→18:02)
--- NOTE | 2020-04-21 07:00 | NUR ---
RN NOTES NO SIGNIFICANT CHANGES PATIEN T ON AND OFF TACHYPNEIC RESP 30-40'S. ETT AND VENT SETTING TOLERATED WELL. LOW GRADE FEVER PRESENT. COOLING BLANKET KEPT IN PLACED. NGT INTACT, CLAMPED. HUGHES CATH DRAINED WELL. BED BATH TOLERATED WELL. WILL ENDORSED CONTINUITY OF CARE TO AM NURSE.
--- NOTE | 2020-04-21 07:30 | NUR ---
received pt from order worker, sedated on diprivan at 85mcg, ST, intubated, sat well, lungs congested, BL hand edema, NG clamped, F/C good output, v/s stable, no pain, pt turned and repositioned.
--- NOTE | 2020-04-21 08:14 | NUR ---
[facility] [place] [facility], pt seen by Dr Gordon.
[2020-04-21 08:22] LABS: ABG BASE EXCESS -2.7 mmol/L; ABG OXYGEN SATURATION 95.4 % (92.0-98.5); ABG PCO2 26.8 mmHg (35.0-45.0); ABG PH 7.489 (7.350-7.450); ABG PO2 100.2 mmHg (75.0-100.0); AaDO2 154.2 mmHg; O2Hb 94.4 % (94.0-97.0); SITE, ABG Right Radial; VENT MODE, BG AC 16 400 +5 40%
[2020-04-21] MEDS: LORAZEPAM INJ 2 MG/ML VIAL IV PRN ×3 (08:37→21:00)
[2020-04-21] MEDS: FAMOTIDINE/PF INJ 20 MG/2 ML VIAL IV SCH (08:37)
[2020-04-21] MEDS ORDERED: POTASSIUM CL. PREMIX PERIPHER. 50 ML IV SCH (11:00)
[2020-04-21] MEDS: POTASSIUM PHOSPHATE MM 15 MMOL in IV NS 0.9% 250 ML IV SCH ×2 (13:03→17:30)
--- NOTE | 2020-04-21 16:10 | NUR ---
pt is resting in the bed, sedated on diprivan at 100mcg, Ativan is been given around the clock for high RR, sat well on 40% fi02, NG clamped, 1 BM, f/c good output, pt cleaned, changed and repositioned.
[2020-04-21] MEDS: AZITHROMYCIN 500 MG in IV D5W 250 ML IV SCH (17:11)
[2020-04-21] MEDS ORDERED: BLOOD SUGAR DIAGNOSTIC 1 EACH STRIP IN SCH (18:00)
--- NOTE | 2020-04-21 19:30 | NUR ---
RN NOTES PATIENT IS ORALLY INTUBATED WITH ETT 7/22 CM AT LIP WITH VENT SETTING AC 16 TV 400 FIO2 45% PEEP 5 SEDATED WITH DIPRIVAN@ 100 MCG/KG/MIN. ST ON TELE MONITOR HR ON 100. NO ACUTE RESP. DISTRESS.LT NGT CLAMPED INTACT , PATENCY CHECKED. NO RESIDUAL. IV SITE ON DEMETRIUS PICC LINE WITH PROPOFOL, NS @ 75 ML/HR AND POTASSIUM PHOSPATE, ALL INTACT AND PATENT. TURN AND REPOSITION FOR SKIN CARE. KEPT PT CLEAN AND DRY. WILL CLOSELY MONITOR.
[2020-04-21] MEDS: INSULIN GLARGINE, 100 UNIT/ML CARTRIDGE SQ SCH (22:56)
[2020-04-22] VITALS (43 sets, daily range): BP systolic 82–119; BP diastolic 30–75
[2020-04-22] MEDS: BLOOD SUGAR DIAGNOSTIC 1 EACH STRIP IN SCH ×4 (00:29→17:10)
[2020-04-22] MEDS: LORAZEPAM INJ 2 MG/ML VIAL IV PRN ×2 (00:30→05:44)
[2020-04-22] MEDS: ACETAMINOPHEN 650 MG/20.3 ML UDC NG PRN (00:32)
[2020-04-22] MEDS: INSULIN REGULAR, HUMAN 100 UNIT/ML 3 ML VIAL SQ PRN (00:39)
[2020-04-22] MEDS: PROPOFOL 100 ML IV PRN ×8 (02:19→22:48)
[2020-04-22] MEDS: IV NS 0.9% 250 ML IV PRN (02:19)
[2020-04-22] MEDS: MEROPENEM 1 G in IV NS 0.9% 100 ML IV SCH ×3 (04:29→21:02)
[2020-04-22 05:23] LABS: BASOPHILS % (AUTO) 1.4 % (0.0-2.0); EOSINOPHILS % (AUTO) 4.5 % (0.0-6.0); HEMATOCRIT 25 % (33-45); HEMOGLOBIN 7.9 g/dL (11.5-14.8); LYMPHOCYTES # (AUTO) 0.3 /CMM (0.8-4.8); MEAN CORPUSCULAR HGB CONC 32 g/dl (31.0-36.0); MEAN CORPUSCULAR VOLUME 86 fL (82-100); MONOCYTES # (AUTO) 0.3 /CMM (0.1-1.30); MONOCYTES % (AUTO) 15.1 % (2.0-12.0); PLATELET COUNT (AUTO) 90 /CMM (150-450); RED BLOOD CELL COUNT(AUTO) 2.88 MIL/uL (4.0-5.2)
--- NOTE | 2020-04-22 05:26 | NUR ---
RT NOTE PT REC'D ORALLY INTUBATED VIA ETT SZ 7.0 SECURED AT 22 CM AT THE LIP LINE. PT ON [facility] VENT ON AC MODE SETTINGS CHARTED. PT SHOWS NO SIGNS OF RESP DISTRESS OR SOB. PT SX'D FOR THICK SMALL AMT OF BLOOD TINGED SECRETIONS. ALARMS ARE SET AND AUDIBLE. VENT PLUGGED INTO RED OUTLET. AMBU BAG BEDSIDE. WILL CONTINUE TO MONITOR CLOSELY. Addendum: 04/22/20 at 0527 by SHANA WINTERS RT Amended: Links added.
[2020-04-22 05:28] LABS: WHITE BLOOD COUNT (AUTO) 1.7 K/uL (4.3-11.0)
[2020-04-22 05:36] LABS: CALCIUM, SERUM 7.2 mg/dL (8.5-10.1); CREATININE 0.5 mg/dL (0.6-1.3); PHOSPHORUS 2.4 mg/dL (2.5-4.9)
[2020-04-22] MEDS: IV NS 0.9% 1,000 ML IV PRN (05:47)
[2020-04-22 05:50] LABS: BAND % (MANUAL) 2 % (0.0-5.0); EOSINOPHILS % (MANUAL) 2 % (0-4); LYMPHOCYTES % (MANUAL) 18 % (16-48); MONOCYTES % (MANUAL) 8 % (0-11.0); NEUTROPHILS % (MANUAL) 70 (42-76)
[2020-04-22] MEDS: VANCOMYCIN 1 GM in IV D5W 250ml IV SCH ×2 (05:57→16:16)
--- NOTE | 2020-04-22 06:30 | NUR ---
RN NOTES PATIENT CONTINUE ON ETT WITH THE SAME VENT SETTING TOLERATED WELL. TACHYPNEA STILL NOTED PRN ATIVAN ADMINISTERED ORDERED EFFECTIVE AFTER [address] ON TELE MONITOR. FEBRILE PRESENT AND PRN MEDICINE REMAINED EFFECTIVE. HUGHES CATH DRAINED WITH YELLOW COLOR URINE, KEPT PT CLEAN AND DRY./ BEDBATH DONE AND TOLERATED. ENDORSED CONTINUITY OFCARE TO AM NURSE. AND WBC OF 1.7 TO RELAY TO MD. WILL CONTINUE POC.
[2020-04-22] MEDS ORDERED: FENTANYL CITRATE IV 1,250 MCG in IV NS 0.9% 225 ML IV PRN (07:30)
--- NOTE | 2020-04-22 08:07 | NUR ---
received pt from repairer evaporator, sedated on diprivan at 100mcg, SR, ST, intubated, sat well on 45% fi02, BL hand edema, NG clamped, f/c good urine output, v/s stable, no pain, pt turned and repositioned.
[2020-04-22] MEDS: FAMOTIDINE/PF INJ 20 MG/2 ML VIAL IV SCH (08:37)
[2020-04-22] MEDS: POTASSIUM CL. PREMIX PERIPHER. 50 ML IV SCH ×4 (08:38→11:49)
[2020-04-22] MEDS: POTASSIUM PHOSPHATE MM 5 MMOL in IV NS 0.9% 100 ML IV SCH ×2 (09:13→11:27)
[2020-04-22] MEDS: DEXTROSE 50%-WATER 50 ML DISP.SYRIN IV PRN (12:06)
[2020-04-22] MEDS: IV D5/ 0.9% NACL 1,000 ML IV PRN (12:12)
--- NOTE | 2020-04-22 12:47 | NUR ---
pt BS 51 D50 given, and stated on D5NS
--- NOTE | 2020-04-22 16:33 | NUR ---
pt is resting in the bed, sedated on Diprivan at 80mcg, receiving Fentanyl at 3mcg, SR, sat well on 80%fi02, cooling blanket on, v/s stable, no pain, pt cleaned, changed and repositioned.
[2020-04-22] MEDS: AZITHROMYCIN 500 MG in IV D5W 250 ML IV SCH (17:54)
[2020-04-22] MEDS: FENTANYL CITRAT IV 2,500 MCG in IV NS 0.9% 200 ML IV PRN (18:22)
--- NOTE | 2020-04-22 19:00 | NUR ---
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 Tolerating vent settings well. No SOB or resp distress noted. SR on tele monitor. Left NGT clamped, NPO. DEMETRIUS PICC line patent and infusing Diprivan at 100mcg/kg/min, Fentanyl at 3mcg/hr and D5NS at 75ml/hr. Roger catheter in place, patent and draining urine via gravity. Safety measures in place. Will continue to monitor.
--- NOTE | 2020-04-22 19:06 | NUR ---
BRICK SIDING APPLICATOR NOTE: Titrated Diprivan down to 90mcg/kg/min d/t pt's BP of 82/30. Will continue to monitor.
--- NOTE | 2020-04-22 20:27 | NUR ---
PT REC'D ORALLY INTUBATED VIA ETT 7.0 SECURED @ 22 CM [facility] WITH THE SETTINGS OF AC 16, 400,80%,PEEP 8. NO RESPIRATORY DISTRESS NOTED AT THIS TIME. SUCTIONED LARGE AMOUNT OF THICK MOELLER SECRETIONS WITH PINK TINGED. ALARMS ARE SET AND AUDIBLE. VENT PLUGGED INTO RED OUTLET. AMBU BAG@ BEDSIDE. WILL CONTINUE TO MONITOR T/O THE SHIFT.
[2020-04-22] MEDS: INSULIN GLARGINE, 100 UNIT/ML CARTRIDGE SQ SCH (22:47)
[2020-04-23] VITALS (94 sets, daily range): BP systolic 41–130; BP diastolic 22–75
[2020-04-23] MEDS: VANCOMYCIN 1 GM in IV D5W 250ml IV SCH ×3 (00:17→17:13)
[2020-04-23] MEDS: BLOOD SUGAR DIAGNOSTIC 1 EACH STRIP IN SCH ×5 (00:25→23:47)
[2020-04-23] MEDS: INSULIN REGULAR, HUMAN 100 UNIT/ML 3 ML VIAL SQ PRN ×2 (00:25→05:45)
[2020-04-23] MEDS: PHENYLEPHRINE 50 MG in IV NS 0.9% 245 ML IV PRN ×2 (00:42→17:14)
--- NOTE | 2020-04-23 00:45 | NUR ---
DRAWING KILN OPERATOR NOTE: Initiated Andrew drip pt's BP 82/34, HR 141. Will titrate per protocol to keep SBP>90.
[2020-04-23] MEDS: PROPOFOL 100 ML IV PRN ×8 (02:08→23:42)
[2020-04-23] MEDS: IV D5/ 0.9% NACL 1,000 ML IV PRN ×2 (04:17→20:40)
[2020-04-23] MEDS: ACETAMINOPHEN 650 MG/20.3 ML UDC NG PRN ×2 (04:21→23:55)
--- NOTE | 2020-04-23 04:21 | NUR ---
PLASTIC EYE TECHNICIAN NOTE: Pt noted w/ temp of 102.9 via rectal probe. Already on cooling blanket. Ice cold bath given. Tylenol 650mg PRN given as ordered. Will continue to monitor.
[2020-04-23 04:31] LABS: BASOPHILS % (AUTO) 0.5 % (0.0-2.0); EOSINOPHILS % (AUTO) 1.5 % (0.0-6.0); HEMATOCRIT 27 % (33-45); HEMOGLOBIN 9.3 g/dL (11.5-14.8); LYMPHOCYTES # (AUTO) 0.6 /CMM (0.8-4.8); LYMPHOCYTES % (AUTO) 10.5 % (20.0-44.0); MEAN CORPUSCULAR HGB CONC 34 g/dl (31.0-36.0); MEAN CORPUSCULAR VOLUME 86 fL (82-100); MONOCYTES # (AUTO) 0.1 /CMM (0.1-1.30); MONOCYTES % (AUTO) 2.5 % (2.0-12.0); NEUTROPHILS # (AUTO) 5.1 /CMM (1.8-8.9); PLATELET COUNT (AUTO) 115 /CMM (150-450); RED BLOOD CELL COUNT(AUTO) 3.17 MIL/uL (4.0-5.2)
[2020-04-23 04:47] LABS: CALCIUM, SERUM 7.1 mg/dL (8.5-10.1); CREATININE 0.4 mg/dL (0.6-1.3); MAGNESIUM 1.5 mg/dL (1.8-2.4); PHOSPHORUS 2.1 mg/dL (2.5-4.9); POTASSIUM 3.4 mmol/L (3.5-5.1)
[2020-04-23 05:31] LABS: BAND % (MANUAL) 13 % (0.0-5.0); LYMPHOCYTES % (MANUAL) 10 % (16-48); MYELOCYTES % 1 % (0-0); NEUTROPHILS % (MANUAL) 76 (42-76)
[2020-04-23] MEDS: MEROPENEM 1 G in IV NS 0.9% 100 ML IV SCH ×3 (05:35→21:00)
[2020-04-23] MEDS: FENTANYL CITRAT IV 2,500 MCG in IV NS 0.9% 200 ML IV PRN ×3 (06:29→20:56)
--- NOTE | 2020-04-23 07:14 | NUR ---
FIELD SALES ENGINEER CLOSING NOTES: Pt remains intubated on mechanical ventilation tolerating settings well. No SOB or resp distress noted. SR/ST on tele monitor. DEMETRIUS PICC patent and infusing D5NS at 75ml/hr, Andrew at 0.07mcg/kg/min, Fentanyl at 3mcg/hr, and Diprivan at 90mcg/kg/min. Roger catheter patent and draining urine. Kept clean/dry. All due meds given as ordered. Safety measures in place. Will endorse to oncoming nurse for CHANA.
[2020-04-23] MEDS ORDERED: POTASSIUM CHLORIDE 20 MEQ POWDER PACKET GT ONE (07:30)
[2020-04-23] MEDS: Magnesium 1GM/D5W 100ML PREMIX 100 ML IV SCH ×2 (07:37→08:47)
--- NOTE | 2020-04-23 08:27 | NUR ---
received pt from night shift supervisor, sedated on diprivan at 100mcg, SR, intubated, sat well on 70%fi02, BL PNA on xray, BL hand edema, NG clamped, f/c good output, receiving Fentanyl gtt at 3mcg, on cooling blanket, v/s stable, no pain, pt turned and repositioned.
[2020-04-23 08:44] LABS: ABG BASE EXCESS -1.6 mmol/L; ABG OXYGEN SATURATION 93.1 % (92.0-98.5); ABG PCO2 39.5 mmHg (35.0-45.0); ABG PH 7.387 (7.350-7.450); ABG PO2 76.7 mmHg (75.0-100.0); AaDO2 379.9 mmHg; COHb 1.1 % (0.5-1.5); O2Hb 92.1 % (94.0-97.0); SITE, ABG Right Radial
[2020-04-23] MEDS: FAMOTIDINE/PF INJ 20 MG/2 ML VIAL IV SCH (08:47)
[2020-04-23] MEDS: POTASSIUM PHOSPHATE MM 5 MMOL in IV NS 0.9% 100 ML IV SCH ×2 (09:17→11:44)
[2020-04-23] MEDS: AZITHROMYCIN 500 MG in IV D5W 250 ML IV SCH (17:18)
--- NOTE | 2020-04-23 17:51 | NUR ---
pt is resting in the bed, sedated on Diprivan at 100mcg, SR, sat well, receiving Fentanyl at 3mcg, good urine output, cooling blanket on, v/s stable, no pain, pt cleaned, changed and repositioned.
--- NOTE | 2020-04-23 20:00 | NUR ---
Received patient sedated on Diprivan gtt at 100 mcg and Fentanyl gtt at 3 mcg. No respiratory distress noted.Patient orally intubated to mechanical vent on full vent support.Vent settings well tolerated.Patient sedated on Diprivan gtt at 100 mcg and Fentanyl gtt at 3 mcg via DEMETRIUS PICC Line. SR/ST with Neosynephrine gtt infusing for BP suuport and will titrate accordingly to keep SBP>90 nares NGT clamped and placement verified by auscultation and aspiration.Kept NPO.IVF infusing.FC to gravity.Turned and repositioned.Will continue to monitor.
--- NOTE | 2020-04-23 20:05 | NUR ---
RT NOTE PT RECEIVED INTUBATED WITH 7.0 ET TUBE @ 22 CM. CUFF INFLATED. SX DONE, ET TUBE SECURED AND PATENT. ALARMS ON AUDIBLE. VENT PLUGGED TO RED OUTLET. NO DISTRESS NOTED AT THIS TIME. WILL CONTINUE TO MONITOR CLOSELY. Addendum: 04/23/20 at 2007 by JUANI VEE RT Amended: Links added.
[2020-04-23] MEDS: INSULIN GLARGINE, 100 UNIT/ML CARTRIDGE SQ SCH (21:53)
[2020-04-24] VITALS (101 sets, daily range): BP systolic 42–160; BP diastolic 21–100
--- NOTE | 2020-04-24 | NUR ---
Patient remains sedated.Febrile 101.4 PRN Tylenol administered.Cont cooling measures done. Turned and repositioned.
[2020-04-24] MEDS: PROPOFOL 100 ML IV PRN ×8 (02:02→23:21)
[2020-04-24] MEDS: MEROPENEM 1 G in IV NS 0.9% 100 ML IV SCH ×3 (04:50→21:00)
[2020-04-24 05:06] LABS: BASOPHILS % (AUTO) 0.5 % (0.0-2.0); EOSINOPHILS % (AUTO) 2.6 % (0.0-6.0); HEMATOCRIT 31 % (33-45); LYMPHOCYTES # (AUTO) 0.6 /CMM (0.8-4.8); LYMPHOCYTES % (AUTO) 6.5 % (20.0-44.0); MEAN CORPUSCULAR HGB CONC 32 g/dl (31.0-36.0); MEAN CORPUSCULAR VOLUME 86 fL (82-100); MONOCYTES # (AUTO) 0.4 /CMM (0.1-1.30); MONOCYTES % (AUTO) 3.8 % (2.0-12.0); NEUTROPHILS # (AUTO) 8.1 /CMM (1.8-8.9); NEUTROPHILS % (AUTO) 86.6 % (43.0-81.0); PLATELET COUNT (AUTO) 154 /CMM (150-450); RED BLOOD CELL COUNT(AUTO) 3.66 MIL/uL (4.0-5.2); WHITE BLOOD COUNT (AUTO) 9.3 K/uL (4.3-11.0)
[2020-04-24 05:18] LABS: CALCIUM, SERUM 7.7 mg/dL (8.5-10.1); CREATININE 0.3 mg/dL (0.6-1.3); MAGNESIUM 1.6 mg/dL (1.8-2.4); PHOSPHORUS 2.6 mg/dL (2.5-4.9); POTASSIUM 3.1 mmol/L (3.5-5.1)
--- NOTE | 2020-04-24 05:40 | NUR ---
Patient resting .Latest temp 96.7. FSBS monitored.All due medications administered. Oral care and Bed bath rendered and complete linens changed.Turned and repositioned. No acute distress noted.Andrew gtt infusing at 1 mcg,Fentanyl gtt at 3 mcg and Diprivan gtt at 100 mcg.Will endorse to day shift for CHANA.
[2020-04-24] MEDS: IV NS 0.9% 250 ML IV PRN (06:13)
[2020-04-24] MEDS: BLOOD SUGAR DIAGNOSTIC 1 EACH STRIP IN SCH ×4 (06:24→23:55)
[2020-04-24] MEDS: INSULIN REGULAR, HUMAN 100 UNIT/ML 3 ML VIAL SQ PRN ×3 (06:25→23:59)
--- NOTE | 2020-04-24 07:05 | NUR ---
RT PATIENT REC'D ORALLY INTUBATED ON [facility] VENT WITH ORDERED SETTINGS. ALARMS CHECKED + AUDIBLE. AMBU BAG AT [facility]. PATIENT APPEARS COMFORTABLE. MAINTAIN CURRENT RESPIRATORY CARE. Addendum: 04/24/20 at 1525 by SANGEETHA ORDOÑEZ RT Amended: Links added.
[2020-04-24] MEDS: PHENYLEPHRINE 50 MG in IV NS 0.9% 245 ML IV PRN ×2 (08:12→21:13)
[2020-04-24 08:41] LABS: ABG BASE EXCESS 0.6 mmol/L; ABG OXYGEN SATURATION 85.6 % (92.0-98.5); ABG PCO2 54.2 mmHg (35.0-45.0); ABG PH 7.319 (7.350-7.450); ABG PO2 55.8 mmHg (75.0-100.0); AaDO2 312.4 mmHg; O2Hb 83.9 % (94.0-97.0); SITE, ABG LEFT ARM; VENT MODE, BG AC16 400 60% +5
[2020-04-24] MEDS: FENTANYL CITRAT IV 2,500 MCG in IV NS 0.9% 200 ML IV PRN ×2 (09:35→21:27)
[2020-04-24] MEDS: FAMOTIDINE/PF INJ 20 MG/2 ML VIAL IV SCH (09:36)
[2020-04-24] MEDS: Magnesium 1GM/D5W 100ML PREMIX 100 ML IV SCH ×2 (09:37→10:56)
[2020-04-24] MEDS: IV D5/ 0.9% NACL 1,000 ML IV PRN ×2 (10:25→23:37)
[2020-04-24] MEDS: POTASSIUM CL. PREMIX PERIPHER. 50 ML IV SCH ×4 (12:01→15:47)
--- NOTE | 2020-04-24 12:35 | NUR ---
sedation vacation note per Dr. Mcconnell, do sedation vacation to assess patient status. Received patient on max dose propofol 100mcg/kg/min + max dose fentanyl 3mcg/kg/hr. Continued to titrate propofol to 0mcg/kg/min per protocol with max fentanyl still infusing. most response received = patient opened eyes with fixed upward gaze, did not track/make eye contact or follow command to squeeze fingers, slight head movement, no extremity movement. tachypneic (RR 16 -> 28), tachycardic (HR 70s -> 113), biting ETT -> desat to SPO2 90% (-> increased FiO2, suctioned, increased sedation) . cont to monitor
--- NOTE | 2020-04-24 12:49 | NUR ---
+ cough reflex, PERRLA
--- NOTE | 2020-04-24 12:49 | NUR ---
per Blair MATE RELIEF ok to begin tube feedings per dietary rec + restart DVT prophylaxis
[2020-04-24] MEDS: ENOXAPARIN SODIUM 40 MG/0.4 ML DISP.SYRIN SQ SCH (13:25)
[2020-04-24] MEDS: ALBUTEROL FS 2.5 MG/0.5 ML VIAL.NEB NEB SCH ×2 (13:30→20:30)
[2020-04-24] MEDS: IPRATROPIUM NEB FS 0.5 MG/2.5 ML AMPUL.NEB NEB SCH ×2 (13:30→20:30)
[2020-04-24] MEDS ORDERED: DOSE PER PHARMACY VORIconazole/VFEND XX PRN (15:30)
[2020-04-24] MEDS: AZITHROMYCIN 500 MG in IV D5W 250 ML IV SCH (17:32)
[2020-04-24] MEDS: GLUCERNA 1.2 1,000 ML BOTTLE NG PRN (17:33)
[2020-04-24] MEDS: ACETAMINOPHEN 650 MG/20.3 ML UDC NG PRN (17:39)
[2020-04-24] MEDS ORDERED: VORICONAZOLE 400 MG in IV D5W 250 ML IV SCH (19:00)
[2020-04-24] MEDS: VORICONAZOLE 400 MG in IV D5W 250 ML IV SCH (19:25)
--- NOTE | 2020-04-24 19:55 | NUR ---
ICU summar See nursing notes for sedation vacation. Multiple vent changes made, final settings AC 16, TV 450, FiO2 80%, PEEP 8. See [facility] nursing orders for PEEP change. NGTF started per order, 55@ nose tip, no s/s aspiration. verified w/ auscultation and aspiration of green gastric drainage. See huff output. Tmax 101.5F, tylenol given. Sputum cx sent. No restraints, patient does not move arms. See IV spread for drips - propofol, fentanyl, D5NS, mariano via DEMETRIUS PICC.
--- NOTE | 2020-04-24 20:00 | NUR ---
Received patient sedated on Diprivan gtt at 100 mcg,Fentanyl gtt at 3 mcg both max dose. Patient orally intubated to full vent support tolerating vent settings well.SR/ST.Neosynephrine gtt infusing for BP support infusing via DEMETRIUS PICC line and site intact.Left NGT placement verified by auscultation and aspiration.Tube feeding tolerating well.Maintained HOB elevated.FC to gravity drainage.No acute distress noted.Turned and repositioned.
[2020-04-24] MEDS: INSULIN GLARGINE, 100 UNIT/ML CARTRIDGE SQ SCH (21:56)
--- NOTE | 2020-04-24 23:42 | NUR ---
RT NOTE PT rec'd orally intubated via ETT sz #7.0 secured @ 22cm at the lipline. Pt on [facility] vent on AC mode settings as charted. pt shows no signs of resp distress or sob. Pt sx'd for small amt of pale yellow secretions. Alarms are set and audible. ambu bag bedside. Will continue to monitor closely. Addendum: 04/24/20 at 2346 by SHANA WINTERS RT Amended: Links added.
[2020-04-25] VITALS (96 sets, daily range): BP systolic 53–135; BP diastolic 34–78
--- NOTE | 2020-04-25 | NUR ---
Patient remains sedated.FSBS checked and coverage given per sliding scale.NGT feeding well tolerated.Turned and repositioned offloading pressure points.
[2020-04-25] MEDS: PROPOFOL 100 ML IV PRN ×10 (01:54→22:45)
[2020-04-25] MEDS: IPRATROPIUM NEB FS 0.5 MG/2.5 ML AMPUL.NEB NEB SCH ×4 (01:59→19:51)
[2020-04-25] MEDS: ALBUTEROL FS 2.5 MG/0.5 ML VIAL.NEB NEB SCH ×4 (01:59→19:51)
[2020-04-25] MEDS ORDERED: MEROPENEM 1 G VIAL IV ONE (04:08)
[2020-04-25] MEDS: ACETAMINOPHEN 650 MG/20.3 ML UDC NG PRN (04:31)
[2020-04-25] MEDS: MEROPENEM 1 G in IV NS 0.9% 100 ML IV SCH ×3 (04:31→21:30)
[2020-04-25] MEDS: IV NS 0.9% 250 ML IV PRN (04:32)
[2020-04-25 05:30] LABS: BASOPHILS % (AUTO) 0.3 % (0.0-2.0); EOSINOPHILS % (AUTO) 1.7 % (0.0-6.0); HEMATOCRIT 29 % (33-45); HEMOGLOBIN 9.5 g/dL (11.5-14.8); LYMPHOCYTES # (AUTO) 0.7 /CMM (0.8-4.8); LYMPHOCYTES % (AUTO) 6.9 % (20.0-44.0); MEAN CORPUSCULAR HGB CONC 33 g/dl (31.0-36.0); MEAN CORPUSCULAR VOLUME 85 fL (82-100); MONOCYTES # (AUTO) 0.3 /CMM (0.1-1.30); MONOCYTES % (AUTO) 2.6 % (2.0-12.0); NEUTROPHILS # (AUTO) 9.2 /CMM (1.8-8.9); NEUTROPHILS % (AUTO) 88.5 % (43.0-81.0); PLATELET COUNT (AUTO) 162 /CMM (150-450); RED BLOOD CELL COUNT(AUTO) 3.44 MIL/uL (4.0-5.2); WHITE BLOOD COUNT (AUTO) 10.4 K/uL (4.3-11.0)
[2020-04-25] MEDS: BLOOD SUGAR DIAGNOSTIC 1 EACH STRIP IN SCH ×3 (05:40→17:43)
[2020-04-25] MEDS: INSULIN REGULAR, HUMAN 100 UNIT/ML 3 ML VIAL SQ PRN ×3 (05:41→18:54)
[2020-04-25 05:44] LABS: CALCIUM, SERUM 7.4 mg/dL (8.5-10.1); CREATININE 0.4 mg/dL (0.6-1.3); MAGNESIUM 1.6 mg/dL (1.8-2.4); POTASSIUM 3.4 mmol/L (3.5-5.1)
--- NOTE | 2020-04-25 07:20 | NUR ---
Patient status unchanged.All iv's infusing well.Tolerating nutrition.BMX2 loose BM.Hygienic measures rendered.Turned and repositioned Q 2 hrs offloading pressure points.All needs met. Report given to day shift RN for CHANA.
[2020-04-25] MEDS: PHENYLEPHRINE 50 MG in IV NS 0.9% 245 ML IV PRN ×3 (08:05→22:45)
[2020-04-25] MEDS: FENTANYL CITRAT IV 2,500 MCG in IV NS 0.9% 200 ML IV PRN ×2 (08:29→20:20)
[2020-04-25] MEDS ORDERED: POTASSIUM CHLORIDE 20 MEQ POWDER PACKET GT ONE (08:30)
[2020-04-25] MEDS: ENOXAPARIN SODIUM 40 MG/0.4 ML DISP.SYRIN SQ SCH (09:05)
[2020-04-25] MEDS: VORICONAZOLE 400 MG in IV D5W 250 ML IV SCH (09:06)
[2020-04-25] MEDS: PANTOPRAZOLE 40 MG/PACK PACK NG SCH (09:06)
[2020-04-25 10:24] LABS: ABG BASE EXCESS 2.5 mmol/L; ABG OXYGEN SATURATION 88.4 % (92.0-98.5); ABG PH 7.284 (7.350-7.450); ABG PO2 62.9 mmHg (75.0-100.0); AaDO2 366.3 mmHg; MetHb 0.1 % (0.0-1.5); O2Hb 87.4 % (94.0-97.0); SITE, ABG Right Radial; VENT MODE, BG AC 16 450 70% +10
[2020-04-25] MEDS: FUROSEMIDE 40 MG/4 ML VIAL IV SCH ×2 (10:40→17:43)
[2020-04-25] MEDS: Magnesium 1GM/D5W 100ML PREMIX 100 ML IV SCH ×2 (11:23→12:39)
[2020-04-25] MEDS: AZITHROMYCIN 500 MG in IV D5W 250 ML IV SCH (17:43)
[2020-04-25] MEDS: GLUCERNA 1.2 1,000 ML BOTTLE NG PRN (17:44)
[2020-04-25] MEDS ORDERED: VORICONAZOLE 200 MG in IV D5W 250 ML IV SCH (19:00)
--- NOTE | 2020-04-25 19:15 | NUR ---
END OF SHIFT NOTE: NO SEDATION VACATION TODAY PER MD ORDERS. PT RECEIVED 2 DOSES OF LASIX THIS SHIFT, A TOTAL OF 3,950 ML OUT OF HUGHES CATHETER THIS SHIFT. FENTANYL CONTINUES TO INFUSE AT 3MCG/KG/HR, PROPOFOL AT 100 MCG/KG/MIN AND RITIKA-SYNEPHRINE CURRENTLY INFUSING AT 1.9 MCG/KG/MIN, TITRATING PER MD ORDERS. IVF DC'D TODAY. TUBE FEEDING INFUSING WITHOUT DIFFICULTY. 1 BM THIS SHIFT. VENT SETTING CHANGES THIS SHIFT PEEP INCREASED TO 10, AC RATE INCREASED TO 24. PT CHECKED ON HOURLY AND PRN BY NURSING STAFF.
--- NOTE | 2020-04-25 19:52 | NUR ---
PT REC'D ORALLY INTUBATED VIA ETT 7.0 SECURED @ 22 CM [facility] WITH THE SETTINGS OF AC 24, 450,70%,PEEP 10. Q6 BREATHING TX GIVEN PER MD'S ORDER. NO ADVERSE REACTION NOTED. SX DONE. NO RESPIRATORY DISTRESS NOTED AT THIS TIME. ALARMS ARE SET AND AUDIBLE. VENT PLUGGED INTO RED OUTLET. AMBU BAG@ BEDSIDE. WILL CONTINUE TO MONITOR T/O THE SHIFT.
[2020-04-25] MEDS: VORICONAZOLE 200 MG TABLET GT SCH (21:30)
[2020-04-25] MEDS: INSULIN GLARGINE, 100 UNIT/ML CARTRIDGE SQ SCH (22:46)
[2020-04-26] VITALS (92 sets, daily range): BP systolic 57–143; BP diastolic 35–87
[2020-04-26] MEDS: BLOOD SUGAR DIAGNOSTIC 1 EACH STRIP IN SCH ×5 (00:25→23:56)
[2020-04-26] MEDS: INSULIN REGULAR, HUMAN 100 UNIT/ML 3 ML VIAL SQ PRN (00:43)
[2020-04-26] MEDS: IPRATROPIUM NEB FS 0.5 MG/2.5 ML AMPUL.NEB NEB SCH ×4 (01:34→20:11)
[2020-04-26] MEDS: ALBUTEROL FS 2.5 MG/0.5 ML VIAL.NEB NEB SCH ×4 (01:34→20:11)
[2020-04-26] MEDS: PROPOFOL 100 ML IV PRN ×9 (01:41→21:25)
[2020-04-26 05:00] LABS: BASOPHILS # (AUTO) 0.1 /CMM (0.0-0.2); BASOPHILS % (AUTO) 0.7 % (0.0-2.0); EOSINOPHILS % (AUTO) 2.8 % (0.0-6.0); HEMATOCRIT 30 % (33-45); HEMOGLOBIN 9.8 g/dL (11.5-14.8); LYMPHOCYTES # (AUTO) 0.8 /CMM (0.8-4.8); LYMPHOCYTES % (AUTO) 10.7 % (20.0-44.0); MEAN CORPUSCULAR HGB CONC 33 g/dl (31.0-36.0); MEAN CORPUSCULAR VOLUME 84 fL (82-100); MONOCYTES # (AUTO) 0.2 /CMM (0.1-1.30); MONOCYTES % (AUTO) 2.4 % (2.0-12.0); NEUTROPHILS # (AUTO) 6.1 /CMM (1.8-8.9); NEUTROPHILS % (AUTO) 83.4 % (43.0-81.0); PLATELET COUNT (AUTO) 171 /CMM (150-450); RED BLOOD CELL COUNT(AUTO) 3.52 MIL/uL (4.0-5.2); WHITE BLOOD COUNT (AUTO) 7.4 K/uL (4.3-11.0)
[2020-04-26] MEDS: MEROPENEM 1 G in IV NS 0.9% 100 ML IV SCH ×3 (05:00→20:30)
[2020-04-26 05:18] LABS: BILIRUBIN,TOTAL 0.4 mg/dL (0.2-1.0); CALCIUM, SERUM 7.8 mg/dL (8.5-10.1); CREATININE 0.5 mg/dL (0.6-1.3); MAGNESIUM 1.5 mg/dL (1.8-2.4); PHOSPHORUS 2.4 mg/dL (2.5-4.9); TOTAL PROTEIN, SERUM 5.5 g/dL (6.4-8.2)
[2020-04-26] MEDS: PHENYLEPHRINE 50 MG in IV NS 0.9% 245 ML IV PRN ×2 (05:50→13:29)
[2020-04-26 06:44] LABS: ALBUMIN 0.9 g/dL (3.4-5.0); POTASSIUM 2.5 mmol/L (3.5-5.1)
--- NOTE | 2020-04-26 07:50 | NUR ---
VEHICLE SERVICE ATTENDANT NOTES RECEIVED PATIENT ORALLY INTUBATED ETT 7.0 SECURED @ 22 CM LIP LINE ON [facility] VENT WITH THE SETTINGS OF AC 24, TV-450,PEEP 10 . PATIENT SEDATED, NO ACUTE RESPIRATORY DISTRESS. PATIENT ON FENTANYL DRIP TOP INVENTORY CONTROL EXECUTIVE PUMP, DIPRIVAN 100 MCG/HR ON RIGHT PICC LINE, RITIKA 1.6 MCG INTACT. NGT INFUSING GLUCERNA 20 CC/HR INTACT, KEEP HOB ELEVATED, EDEMA BLE, AND BUE, HUGHES DRAINING LIGHT YELLOW OUTPUT, ASSIST TURN AND REPOSITION Q 2 HR. AMBU BAG@ BEDSIDE. WILL CONTINUE TO MONITOR T/O THE SHIFT.
--- NOTE | 2020-04-26 07:50 | NUR ---
SUPERVISOR LOCOMOTIVE NOTES RECEIVED PATIENT ORALLY INTUBATED ETT 7.0 SECURED @ 22 CM LIP LINE ON [facility] VENT WITH THE SETTINGS OF AC 24, TV-450,PEEP 10 . PATIENT SEDATED, NO ACUTE RESPIRATORY DISTRESS. PATIENT ON FENTANYL DRIP LINE CLEARANCE FOREMAN PUMP, DIPRIVAN 100 MCG/HR ON RIGHT PICC LINE, RITIKA 1.6 MCG INTACT. NGT INFUSING GLUCERNA 20 CC/HR INTACT, KEEP HOB ELEVATED, EDEMA BLE, AND BUE, HUGHES DRAINING LIGHT YELLOW OUTPUT, ASSIST TURN AND REPOSITION Q 2 HR. AMBU BAG@ BEDSIDE. WILL CONTINUE TO MONITOR T/O THE SHIFT.
[2020-04-26] MEDS: POTASSIUM CL. PREMIX PERIPHER. 50 ML IV SCH ×6 (08:00→16:57)
[2020-04-26 08:05] LABS: ABG BASE EXCESS 6.9 mmol/L; ABG OXYGEN SATURATION 89.2 % (92.0-98.5); ABG PCO2 44.7 mmHg (35.0-45.0); ABG PH 7.465 (7.350-7.450); ABG PO2 59.1 mmHg (75.0-100.0); AaDO2 319.5 mmHg; COHb 1.4 % (0.5-1.5); SITE, ABG Right Radial
[2020-04-26] MEDS: FUROSEMIDE 40 MG/4 ML VIAL IV SCH (08:11)
[2020-04-26] MEDS: VORICONAZOLE 200 MG TABLET GT SCH ×2 (08:11→21:25)
[2020-04-26] MEDS: Magnesium 1GM/D5W 100ML PREMIX 100 ML IV SCH ×2 (08:11→09:42)
[2020-04-26] MEDS: PANTOPRAZOLE 40 MG/PACK PACK NG SCH (08:11)
[2020-04-26] MEDS ORDERED: POTASSIUM PHOSPHATE MM 7.5 MMOL in IV NS 0.9% 100 ML IV SCH (08:30)
[2020-04-26] MEDS: FENTANYL CITRAT IV 2,500 MCG in IV NS 0.9% 200 ML IV PRN ×2 (08:34→21:26)
[2020-04-26] MEDS: ENOXAPARIN SODIUM 40 MG/0.4 ML DISP.SYRIN SQ SCH (08:42)
--- NOTE | 2020-04-26 10:00 | NUR ---
RN NOTES BECAUSE OF LOW OXYGEN PEEP INCREASED 12, PER BASEBALL GLOVE STUFFER Dr DUENAS NO SEDATION VACATION PATIENT KEEP ON 100MCG DIPRIVAN.
[2020-04-26] MEDS: ALBUMIN 25% 25 GM in PREMIX 1 EA IV SCH ×3 (10:45→20:00)
--- NOTE | 2020-04-26 11:13 | NUR ---
rn notes NGT residual checked 90 ml, continued feeding.
[2020-04-26] MEDS: IV NS 0.9% 250 ML IV PRN (16:49)
--- NOTE | 2020-04-26 16:58 | NUR ---
rn notes rechecked residual 160 ml, called hospitalist Farhan MARKETING ANALYTICS SPECIALIST and grt TO order , hpld feeding at this time, Reglan 10 mg/ml iv x1, and US of abdomen, order taken and carried OUT.
[2020-04-26] MEDS ORDERED: METOCLOPRAMIDE HCL 10 MG/2 ML VIAL IV ONE (17:00)
--- NOTE | 2020-04-26 17:30 | NUR ---
RN NOTES US DONE, AND GET RESIDUAL 270 ML.
[2020-04-26] MEDS: AZITHROMYCIN 250 MG TABLET GT SCH (17:48)
--- NOTE | 2020-04-26 18:30 | NUR ---
RN NOTES PM CARE DONE, SUCTION, DUE MEDICATION ADMINISTERED, V/S STABLE, PATIENT ON FENTANYL DIP 18MCG, RITIKA 1 MCG. DIPRIVAN TITRATED DOWN 40 MCG, PATIENT CALM AND COOPERATIVE, ABLE TO OPEN EYES. F/C DRAINING LIGHT YELLOW OUTPUT, NEEDS ATTENDED AND ANTICIPATED. CALL LIGHT WITHIN TO REACH. HOB KEEP ELEVATED. ENDORSED ONCOMING NURSE FOLLOW PLAN OF CARE.
--- NOTE | 2020-04-26 20:46 | NUR ---
Received Pt. on vent AC 24 450 60% +12. On ET tube 7.0 22cm @ lip. No signs of respiratory distress. Suctioned moderate amounts of thick yellow secretins. Mameu bag @ bedside. Addendum: 04/26/20 at 2046 by BEST WRIGHT RT Amended: Links added.
[2020-04-26] MEDS: INSULIN GLARGINE, 100 UNIT/ML CARTRIDGE SQ SCH (22:00)
--- NOTE | 2020-04-26 22:15 | NUR ---
BOAT CANVAS MAKER INSTALLER LANTUS NOT GIVEN AT THIS TIME PT IS NPO AND GLUCOSE IS 85. CONTINUE TO MONITOR.
[2020-04-27] VITALS (53 sets, daily range): BP systolic 81–166; BP diastolic 44–86
[2020-04-27] MEDS: IPRATROPIUM NEB FS 0.5 MG/2.5 ML AMPUL.NEB NEB SCH ×4 (01:23→19:39)
[2020-04-27] MEDS: ALBUTEROL FS 2.5 MG/0.5 ML VIAL.NEB NEB SCH ×4 (01:23→19:39)
[2020-04-27] MEDS: ALBUMIN 25% 25 GM in PREMIX 1 EA IV SCH (01:59)
[2020-04-27] MEDS: PROPOFOL 100 ML IV PRN ×2 (01:59→07:28)
[2020-04-27] MEDS: GLUCERNA 1.2 1,000 ML BOTTLE NG PRN (02:00)
[2020-04-27] MEDS: IV NS 0.9% 250 ML IV PRN (02:41)
--- NOTE | 2020-04-27 03:00 | NUR ---
CAN CAPPER PT NOTED WITH INCREASED HEART RATE AND RESPIRATIONS W/EPISODES OF DESATURATION; PROPOFOL INCREASED TO 55 MCG/KG/MIN; CONTINUE TO MONITOR.
[2020-04-27 04:59] LABS: BASOPHILS % (AUTO) 0.4 % (0.0-2.0); EOSINOPHILS % (AUTO) 2.3 % (0.0-6.0); HEMATOCRIT 23 % (33-45); HEMOGLOBIN 7.3 g/dL (11.5-14.8); LYMPHOCYTES # (AUTO) 0.5 /CMM (0.8-4.8); LYMPHOCYTES % (AUTO) 19.5 % (20.0-44.0); MEAN CORPUSCULAR HGB CONC 32 g/dl (31.0-36.0); MEAN CORPUSCULAR VOLUME 84 fL (82-100); MONOCYTES # (AUTO) 0.1 /CMM (0.1-1.30); MONOCYTES % (AUTO) 5.9 % (2.0-12.0); NEUTROPHILS # (AUTO) 1.8 /CMM (1.8-8.9); NEUTROPHILS % (AUTO) 71.9 % (43.0-81.0); PLATELET COUNT (AUTO) 79 /CMM (150-450); RED BLOOD CELL COUNT(AUTO) 2.71 MIL/uL (4.0-5.2); WHITE BLOOD COUNT (AUTO) 2.5 K/uL (4.3-11.0)
[2020-04-27] MEDS: PHENYLEPHRINE 50 MG in IV NS 0.9% 245 ML IV PRN (05:00)
[2020-04-27] MEDS: MEROPENEM 1 G in IV NS 0.9% 100 ML IV SCH ×3 (05:00→20:25)
--- NOTE | 2020-04-27 05:00 | NUR ---
PATIENT SCHEDULING COORDINATOR RITIKA TITRATED OFF AT 2030 FOR BP 107/53 RESTARTED AT 0500 FOR BP 79/55.
[2020-04-27 05:24] LABS: NEUTROPHILS % (MANUAL) 68 (42-76)
[2020-04-27 05:25] LABS: EOSINOPHILS % (MANUAL) 2 % (0-4); LYMPHOCYTES % (MANUAL) 16 % (16-48); MONOCYTES % (MANUAL) 14 % (0-11.0)
[2020-04-27 05:31] LABS: ALBUMIN 2.6 g/dL (3.4-5.0); BILIRUBIN,TOTAL 0.8 mg/dL (0.2-1.0); CALCIUM, SERUM 8.6 mg/dL (8.5-10.1); CREATININE 0.5 mg/dL (0.6-1.3); MAGNESIUM 1.9 mg/dL (1.8-2.4); PHOSPHORUS 3.2 mg/dL (2.5-4.9); POTASSIUM 3.1 mmol/L (3.5-5.1); TOTAL PROTEIN, SERUM 6.1 g/dL (6.4-8.2)
[2020-04-27] MEDS: BLOOD SUGAR DIAGNOSTIC 1 EACH STRIP IN SCH ×4 (05:49→23:42)
--- NOTE | 2020-04-27 07:30 | NUR ---
RN OPENING NOTE: RECEIVED PATIENT IN BED THIS MORNING. PATIENT IS SEDATED AND INTUBATED, TOLERATING VENT SETTINGS WELL. NO SIGNS OF ACUTE DISTRESS NOTED AT THIS TIME. SINUS TACHY IN THE 110S NOTED ON THE BEDSIDE MONITOR. NGT RUNNING TF. HUGHES DRAINING URINE. COOLING BLANKET TO REGULATE TEMP. WOUND CARE PER ORDERS. DEMETRIUS PICC LINE, C/D/I, FLUSHING WELL, NO SIGNS OF COMPLICATIONS NOTED. SAFETY MEASURES IMPLEMENTED, BED IN LOWEST POSITION, LOCKED, SIDE RAILS UP, CALL LIGHT WITHIN REACH. WILL CONTINUE TO MONITOR PATIENT FOR CHANGES.
[2020-04-27 08:10] LABS: ABG BASE EXCESS 7.9 mmol/L; ABG OXYGEN SATURATION 81.5 % (92.0-98.5); ABG PCO2 47.3 mmHg (35.0-45.0); ABG PH 7.457 (7.350-7.450); ABG PO2 47.7 mmHg (75.0-100.0); AaDO2 328.1 mmHg; COHb 2.2 % (0.5-1.5); O2Hb 79.7 % (94.0-97.0); SITE, ABG Right Radial
[2020-04-27] MEDS: VORICONAZOLE 200 MG TABLET GT SCH ×2 (08:15→20:25)
[2020-04-27] MEDS: PANTOPRAZOLE 40 MG/PACK PACK NG SCH (08:15)
[2020-04-27] MEDS: ENOXAPARIN SODIUM 40 MG/0.4 ML DISP.SYRIN SQ SCH (08:35)
--- NOTE | 2020-04-27 09:14 | NUR ---
PER DR DUENAS, HOLD SEDATION VACATION 04/27/2020
--- NOTE | 2020-04-27 09:16 | NUR ---
D/T TRIGLYCERIDES AT 603, ORDER VERSED, ADMINISTER MAX DOSE VIA IV DRIP AND DC PROPOFOL.
--- NOTE | 2020-04-27 09:45 | NUR ---
RT POST MORNING ABG FIO2 INCREASED TO 100% AND PEEP TO [address] PELEG. SUPRIYA GLOVER AWARE Addendum: 04/27/20 at 1034 by SANGEETHA ORDOÑEZ RT Amended: Links added.
[2020-04-27] MEDS ORDERED: POTASSIUM CHLORIDE 20 MEQ POWDER PACKET NG SCH (10:00)
[2020-04-27] MEDS: FENTANYL CITRAT IV 2,500 MCG in IV NS 0.9% 200 ML IV PRN ×2 (10:02→21:05)
[2020-04-27] MEDS: MIDAZOLAM HCL 100 MG in IV NS 0.9% 80 ML IV PRN ×2 (10:03→21:04)
--- NOTE | 2020-04-27 10:31 | NUR ---
WOUND CARE CONSULT: PT PRESENTS WITH BONY SACRAL AREA WITH BLANCHABLE REDNESS AND SMALL INTACT CIRCULAR PURPLISH AREAS TO GLUTEAL CREASE AND RT BUTTOCK, NOT ON BONY AREA. RECOMMENDATIONS MADE FOR SKIN PROTECTION. DISCUSSED WITH NURSING STAFF. FIRST STEP LOW AIRLOSS MATTRESS ORDERED. MD IN AGREEMENT WITH PLAN OF CARE. Addendum: 04/27/20 at 1033 by LEISA SPANN WNDNU Amended: Links added.
[2020-04-27 12:24] LABS: ABG BASE EXCESS 6.7 mmol/L; ABG OXYGEN SATURATION 94.3 % (92.0-98.5); ABG PCO2 52.2 mmHg (35.0-45.0); ABG PH 7.408 (7.350-7.450); ABG PO2 91.8 mmHg (75.0-100.0); COHb 1.1 % (0.5-1.5); O2Hb 93.3 % (94.0-97.0); PEEP,BG 14 cm H2O; SITE, ABG Right Radial
[2020-04-27] MEDS: AZITHROMYCIN 250 MG TABLET GT SCH (17:19)
--- NOTE | 2020-04-27 18:58 | NUR ---
RN CLOSING NOTE: PATIENT REMAINS IN ROOM. NO SIGNS OF ACUTE DISTRESS NOTED AT THIS TIME. ST IN THE 120S NOTED ON THE BEDSIDE MONITOR. SAFETY MEASURES IMPLEMENTED, BED IN LOWEST POSITION, LOCKED, SIDE RAILS UP, CALL LIGHT WITHIN REACH. WILL ENDORSE TO ONCOMING SHIFT RN FOR CONTINUITY OF CARE.
--- NOTE | 2020-04-27 20:00 | NUR ---
GLASS RIBBON MACHINE OPERATOR NOTES GASTRIC RESIDUAL 550ML OF YELLOW/STRAW COLORED FLUID. TUBE FEEDING HELD, WILL MONITOR CLOSELY
[2020-04-27] MEDS: INSULIN GLARGINE, 100 UNIT/ML CARTRIDGE SQ SCH (22:00)
--- NOTE | 2020-04-27 22:03 | NUR ---
PIT OPERATOR NOTES BLOOD SUGAR 98. LONG ACTING INSULIN HELD DUE TO LOW BLOOD SUGAR OF 98 WELL GTUBE FEEDING INTOLERANCE, GASTRIC RESIDUAL @ 550ML @ 1999. WILL MONITOR CLOSELY, SCHEDULED ACCUCHEK @ 0000
[2020-04-28] VITALS (106 sets, daily range): BP systolic 69–145; BP diastolic 43–93
--- NOTE | 2020-04-28 | NUR ---
ELIGIBILITY SERVICES REPRESENTATIVE NOTES 0000 BP NOTED TO DROP TO 73/52. PATIENT APPEARS OVER SEDATED. VERSED DRIP TITRATED DOWN 0005 BP REMAINS LOW70/53. NEOSYNEPHRINE DRIP RESUMED @ 0.5MCG/KG/MIN
--- NOTE | 2020-04-28 00:30 | NUR ---
HOOK TENDER NOTES 0030 VERSED DRIP TITRATED DOWN TO 6 MG/HR DUE TO OVERSEDATION, NEOSYNEPHRINE DRIP TITRATED TO 0.9MCG/KG/MIN TO ACHIEVE STABLE BP, CURRENTLY 134/82. WILL MONITOR CLOSELY AND TITRATE DRIPS ACCORDINGLY
--- NOTE | 2020-04-28 00:35 | NUR ---
RT Pt recv'd on ordered settings AC 24 450 80% +14 with 7.0 ETT, 22cm at lip. Pt sedated. Suction done PRN with thick white pink-tinged secretions. Tx's given with no adverse reactions. No sign of respiratory distress noted. Vent plugged into red outlet with ambu bag at [facility]. Alarms on and audible.
[2020-04-28] MEDS: ALBUTEROL FS 2.5 MG/0.5 ML VIAL.NEB NEB SCH ×4 (01:42→19:40)
[2020-04-28] MEDS: IPRATROPIUM NEB FS 0.5 MG/2.5 ML AMPUL.NEB NEB SCH ×4 (01:42→19:40)
[2020-04-28] MEDS: IV NS 0.9% 250 ML IV PRN (03:20)
[2020-04-28] MEDS: MEROPENEM 1 G in IV NS 0.9% 100 ML IV SCH ×3 (04:35→20:28)
[2020-04-28 04:39] LABS: BASOPHILS % (AUTO) 0.4 % (0.0-2.0); EOSINOPHILS % (AUTO) 2.1 % (0.0-6.0); HEMATOCRIT 25 % (33-45); HEMOGLOBIN 8.1 g/dL (11.5-14.8); LYMPHOCYTES # (AUTO) 0.4 /CMM (0.8-4.8); LYMPHOCYTES % (AUTO) 7.1 % (20.0-44.0); MEAN CORPUSCULAR HGB CONC 32 g/dl (31.0-36.0); MEAN CORPUSCULAR VOLUME 84 fL (82-100); MONOCYTES # (AUTO) 0.3 /CMM (0.1-1.30); MONOCYTES % (AUTO) 4.9 % (2.0-12.0); NEUTROPHILS # (AUTO) 4.7 /CMM (1.8-8.9); NEUTROPHILS % (AUTO) 85.5 % (43.0-81.0); PLATELET COUNT (AUTO) 111 /CMM (150-450); WHITE BLOOD COUNT (AUTO) 5.5 K/uL (4.3-11.0)
[2020-04-28 04:49] LABS: CREATININE 0.5 mg/dL (0.6-1.3); MAGNESIUM 1.6 mg/dL (1.8-2.4); PHOSPHORUS 3.7 mg/dL (2.5-4.9); POTASSIUM 3.3 mmol/L (3.5-5.1)
[2020-04-28] MEDS: ACETAMINOPHEN 650 MG/20.3 ML UDC NG PRN (05:10)
--- NOTE | 2020-04-28 05:15 | NUR ---
TRANSIT PROOF MACHINE OPERATOR NOTES DESPITE COOLING BLANKET, CORE/RECTAL TEMP REMAINS 100.0. AFTER BEDBATH, HR NOTED TO GO BACK UP TP THE 120s, PATIENT NOW SLIGHTLY TACHYPNEIC IN THE LOW 30s. TYLENOL ADMINISTERED TO AID IN TEMP REGULATION. WILL MONITOR CLOSELY
[2020-04-28] MEDS: BLOOD SUGAR DIAGNOSTIC 1 EACH STRIP IN SCH ×3 (05:30→17:24)
--- NOTE | 2020-04-28 06:00 | NUR ---
CAST ASSOCIATE NOTES TYLENOL AND INCREASE IN VERSED DRI EFFECTIVE. PATIENT NOW RIDING VENTILATOR SETTINGS, BREATHING AT A RATE OF 24. HR NOTED TO GO DOWN TO 90, SINUS RHYTHM. PATIENT REMAINS ORALLY INTUBATED, SEDATED WELL ON VERSED DRIP @ 7MG/HR AND FENTANYL DRIP @ 3MCG/KG/HR OR 19ML/HR. PATIENT ALSO ON NEOSYNEPHRINE DRIP FOR BP SUPPORT, TITRATED TO 0.8MCG/KG/MIN. WILL ENDORSE THE PATIENT TO THE AM SHIFT NURSE FOR CHANA
--- NOTE | 2020-04-28 07:35 | NUR ---
RN OPENING NOTE: RECEIVED PATIENT IN BED THIS MORNING. PATIENT IS SEDATED AND INTUBATED, TOLERATING VENT SETTINGS WELL. NO SIGNS OF ACUTE DISTRESS NOTED AT THIS TIME. SR IN THE 80S NOTED ON THE BEDSIDE MONITOR. NGT FEEDING HELD AT THIS TIME D/T HIGH RESIDUAL. HUGHES DRAINING URINE. WOUND CARE PER ORDERS. DEMETRIUS PICC LINE, C/D/I, FLUSHING WELL, NO SIGNS OF COMPLICATIONS NOTED. SAFETY MEASURES IMPLEMENTED, BED IN LOWEST POSITION, LOCKED, SIDE RAILS UP, CALL LIGHT WITHIN REACH. WILL CONTINUE TO MONITOR PATIENT FOR CHANGES.
[2020-04-28] MEDS: VORICONAZOLE 200 MG TABLET GT SCH ×2 (08:14→20:28)
[2020-04-28] MEDS: PANTOPRAZOLE 40 MG/PACK PACK NG SCH (08:14)
[2020-04-28] MEDS: ENOXAPARIN SODIUM 40 MG/0.4 ML DISP.SYRIN SQ SCH (08:15)
--- NOTE | 2020-04-28 08:15 | NUR ---
PLATELETS 79, LOVENOX HELD.
[2020-04-28] MEDS ORDERED: POTASSIUM CHLORIDE 20 MEQ POWDER PACKET GT ONE (10:00)
[2020-04-28] MEDS: Magnesium 1GM/D5W 100ML PREMIX 100 ML IV SCH ×2 (10:17→11:18)
[2020-04-28 10:18] LABS: ABG BASE EXCESS 3.6 mmol/L; ABG OXYGEN SATURATION 92.2 % (92.0-98.5); ABG PCO2 39.2 mmHg (35.0-45.0); ABG PH 7.466 (7.350-7.450); ABG PO2 72.6 mmHg (75.0-100.0); AaDO2 239.8 mmHg; COHb 1.6 % (0.5-1.5); MetHb 0.1 % (0.0-1.5); O2Hb 90.6 % (94.0-97.0); PEEP,BG 10 cm H2O; SITE, ABG Right Radial; VT, ABG 450 mL
[2020-04-28] MEDS: FENTANYL CITRAT IV 2,500 MCG in IV NS 0.9% 200 ML IV PRN ×2 (10:43→23:28)
[2020-04-28] MEDS: MIDAZOLAM HCL 100 MG in IV NS 0.9% 80 ML IV PRN ×2 (10:44→23:25)
[2020-04-28] MEDS: METOCLOPRAMIDE HCL 10 MG/2 ML VIAL IV SCH ×2 (11:47→19:48)
[2020-04-28] MEDS: IV NS 0.9% 1,000 ML IV PRN (11:47)
[2020-04-28] MEDS: PHENYLEPHRINE 50 MG in IV NS 0.9% 245 ML IV PRN (14:19)
[2020-04-28] MEDS: AZITHROMYCIN 250 MG TABLET GT SCH (17:25)
--- NOTE | 2020-04-28 18:04 | NUR ---
PHARMACY AWARE TO SEND ANOTHER BAG OF VERSED AND FENTANYL
--- NOTE | 2020-04-28 19:41 | NUR ---
PT REC'D ORALLY INTUBATED VIA ETT 7.0 SECURED @ 22 CM [facility] WITH THE SETTINGS OF AC 24, 450,80%,PEEP 10. PT IS SEDATED. Q6 BREATHING TX GIVEN. NO ADVERSE REACTION NOTED. NO RESPIRATORY DISTRESS NOTED AT THIS TIME. ALARMS ARE SET AND AUDIBLE. VENT PLUGGED INTO RED OUTLET. AMBU BAG@ BEDSIDE. WILL CONTINUE TO MONITOR T/O THE SHIFT.
[2020-04-28] MEDS: GLUCERNA 1.2 1,000 ML BOTTLE NG PRN (20:28)
[2020-04-28] MEDS: INSULIN GLARGINE, 100 UNIT/ML CARTRIDGE SQ SCH (21:29)
--- NOTE | 2020-04-28 21:29 | NUR ---
BLOOD GLUCOSE LEVEL 118MG/DL, 2200 INSULIN HELD D/T R/F HYPOGLYCEMIA
--- NOTE | 2020-04-28 22:28 | NUR ---
RN CLOSING NOTE: PATIENT REMAINS IN ROOM. NO SIGNS OF ACUTE DISTRESS NOTED AT THIS TIME. PATIENT IS STILL ON PRESSORS AND SEDATIONS. SR IN THE 70S NOTED ON THE BEDSIDE MONITOR. SAFETY MEASURES IMPLEMENTED, BED IN LOWEST POSITION, LOCKED, SIDE RAILS UP, CALL LIGHT WITHIN REACH. WILL ENDORSE TO SUPRIYA TAPIA FOR CONTINUITY OF CARE.
--- NOTE | 2020-04-28 22:33 | NUR ---
FENTANYL AND VERSED PLACED IN LOCK BOX IN THE MED ROOM. CONTROL KEYS IN THE OMNICELL. WILL ENDORSE TO ONCOMING RN TO REPLACE WHEN FLUIDS COMPLETE IN BAGS CURRENTLY HANGING.
--- NOTE | 2020-04-28 22:45 | NUR ---
CIRCULATION WORKER. RECEIVED THE PT FROM [place]ARRIS AT 2245, PT REST ON THE BED. ORALLY INTUBATED. SEDATED WITH VERSED AND FENTANYLETT #7,LIP 22,AC 24, TV 450,FIO2 80%,PEEP 10. SAT 98%, NO ACUTE DISTRESS NOTED. PROJECT MANAGER ENTERTAINMENT AND MEDIA SHOWING NSR, IV RT UPPER ARM PICC LINE, IVF NS 50ML/H, VERSED 7MG/H, FENTANYL 3MCG/KG/MIN, FC PATENT. JITENDRA UPPER AND LOWER EXTREMITY SWELLON, HOB ELEVATED. LT NARE NGT INTACT. GLUCERNA 10ML/H, HOB ELEVATED, WILL CONTINUE TO MONITOR VITALS
[2020-04-29] VITALS (89 sets, daily range): BP systolic 74–164; BP diastolic 45–109
[2020-04-29] MEDS: BLOOD SUGAR DIAGNOSTIC 1 EACH STRIP IN SCH ×4 (00:36→17:32)
[2020-04-29] MEDS: PHENYLEPHRINE 50 MG in IV NS 0.9% 245 ML IV PRN ×3 (01:09→20:08)
[2020-04-29] MEDS: IPRATROPIUM NEB FS 0.5 MG/2.5 ML AMPUL.NEB NEB SCH ×4 (01:43→20:04)
[2020-04-29] MEDS: ALBUTEROL FS 2.5 MG/0.5 ML VIAL.NEB NEB SCH ×4 (01:43→20:04)
--- NOTE | 2020-04-29 02:25 | NUR ---
cvicu rn. fio2 titrated down to 70%
--- NOTE | 2020-04-29 03:18 | NUR ---
agricultural economics teacher. remaining same vent setting tolerated well. sat 98%. will continue to monitor vitals.
[2020-04-29 05:12] LABS: CALCIUM, SERUM 7.9 mg/dL (8.5-10.1); CREATININE 0.5 mg/dL (0.6-1.3); MAGNESIUM 1.9 mg/dL (1.8-2.4); PHOSPHORUS 4.1 mg/dL (2.5-4.9); POTASSIUM 3.7 mmol/L (3.5-5.1)
[2020-04-29 05:13] LABS: BASOPHILS % (AUTO) 0.9 % (0.0-2.0); EOSINOPHILS % (AUTO) 2.3 % (0.0-6.0); HEMATOCRIT 25 % (33-45); HEMOGLOBIN 7.9 g/dL (11.5-14.8); LYMPHOCYTES # (AUTO) 0.4 /CMM (0.8-4.8); LYMPHOCYTES % (AUTO) 10.1 % (20.0-44.0); MEAN CORPUSCULAR HGB CONC 32 g/dl (31.0-36.0); MEAN CORPUSCULAR VOLUME 84 fL (82-100); MONOCYTES # (AUTO) 0.2 /CMM (0.1-1.30); MONOCYTES % (AUTO) 5.2 % (2.0-12.0); NEUTROPHILS # (AUTO) 3.5 /CMM (1.8-8.9); NEUTROPHILS % (AUTO) 81.5 % (43.0-81.0); PLATELET COUNT (AUTO) 137 /CMM (150-450); RED BLOOD CELL COUNT(AUTO) 2.94 MIL/uL (4.0-5.2); WHITE BLOOD COUNT (AUTO) 4.3 K/uL (4.3-11.0)
--- NOTE | 2020-04-29 05:30 | NUR ---
curriculum assistant principal. oral care, bed bath given. linen changed. remaining same vent setting tolerated well. sat 98%. no acute distress noted. monitoring specialist showing nsr. iv mariano 0.9mcg/kg/min,ns 50ml/h,versed 7mcg/min,fentanyl 3mcg/kg/min. afebrile. hob elevated. ngt feeding not tolerated well. fc patent. turn and reposition q2h. will continue to monitor vitals.
[2020-04-29] MEDS: ACETAMINOPHEN 650 MG/20.3 ML UDC NG PRN (06:08)
[2020-04-29] MEDS: IV NS 0.9% 1,000 ML IV PRN (06:08)
[2020-04-29] MEDS: MEROPENEM 1 G in IV NS 0.9% 100 ML IV SCH ×3 (06:08→20:00)
[2020-04-29] MEDS: METOCLOPRAMIDE HCL 10 MG/2 ML VIAL IV SCH ×3 (06:09→20:00)
--- NOTE | 2020-04-29 06:58 | NUR ---
supervisor agricultural education. ngt feed held. residual. was 200at 0600 temperature 101. tylenol given per ordered. cooling measure initiated
--- NOTE | 2020-04-29 07:40 | NUR ---
RN OPENING NOTE: RECEIVED PATIENT IN BED THIS MORNING. PATIENT IS SEDATED AND INTUBATED, TOLERATING VENT SETTINGS WELL. NO SIGNS OF ACUTE DISTRESS NOTED AT THIS TIME. SINUS TACHY IN THE 110S NOTED ON THE BEDSIDE MONITOR, PUBLICITY PERSON AWARE THE MONITOR IS HAVING ISSUES CAPTURING THE RHYTHMS, FOR FOLLOW UP WITH WORK ORDER FOR REPAIR. NGT FEEDING HELD AT THIS TIME D/T HIGH RESIDUAL. HUGHES DRAINING URINE. WOUND CARE PER ORDERS. DEMETRIUS PICC LINE, C/D/I, FLUSHING WELL, NO SIGNS OF COMPLICATIONS NOTED. SAFETY MEASURES IMPLEMENTED, BED IN LOWEST POSITION, LOCKED, SIDE RAILS UP, CALL LIGHT WITHIN REACH. WILL CONTINUE TO MONITOR PATIENT FOR CHANGES.
[2020-04-29] MEDS: ENOXAPARIN SODIUM 40 MG/0.4 ML DISP.SYRIN SQ SCH (08:09)
[2020-04-29] MEDS: VORICONAZOLE 200 MG TABLET GT SCH ×2 (08:09→20:00)
[2020-04-29] MEDS: PANTOPRAZOLE 40 MG/PACK PACK NG SCH (08:09)
[2020-04-29] MEDS ORDERED: PHENYLEPHRINE 100 MG in IV NS 0.9% 240 ML IV PRN (12:30)
[2020-04-29] MEDS: FENTANYL CITRAT IV 2,500 MCG in IV NS 0.9% 200 ML IV PRN (12:54)
[2020-04-29] MEDS: MIDAZOLAM HCL 100 MG in IV NS 0.9% 80 ML IV PRN (12:55)
[2020-04-29] MEDS: IV D5/ 0.9% NACL 1,000 ML IV PRN (15:51)
--- NOTE | 2020-04-29 17:15 | NUR ---
RT NOTE: PATIENT'S FI02 INCREASED TO 80% DUE TO OXYGEN SATURATION DROPPING TO THE 80'S AFTER BED BATH. NURSE AWARE.
--- NOTE | 2020-04-29 19:33 | NUR ---
URINE CULTURE COLLECTED AND PICKED UP BY LAB
--- NOTE | 2020-04-29 22:10 | NUR ---
C PROGRAMMER OPENING NOTES RECEIVED PT IN BED. SEDATED WITH VERSED AND FENTANYL. VENT SETTINGS AC 24 TV 450 FIO2 80% PEEP 10. SAT 99% AT THIS TIME. PT TOLERATING WELL. PT IS NOT EXPERIENCING ANY RESP DISTRESS OR HAVING SOB. PT ON CARDIAC MONITORING SINUS TACHY HEART RATE OF 115 BASELINE TO PT. PT HAS NGT PRESENT. AUSCULTATED TO CONFIRM PLACEMENT. IV SITE DEMETRIUS PICC. ALSO RECEIVING D5 NS 0.9% RUNNING AT 75ML/HR. PT IS AFEBRILE AT THIS TIME. PT HAS HUGHES CATHETER DRAINING YELLOW URINE FREE OF SEDIMENT. SAFETY MEASURES IN PLACE. HOB ELEVATED TOLERATED. SIDE RAILS UP X2. BED LOCKED. WILL CONTINUE TO MONITOR.
[2020-04-29] MEDS: INSULIN GLARGINE, 100 UNIT/ML CARTRIDGE SQ SCH (22:18)
--- NOTE | 2020-04-29 22:30 | NUR ---
VERSED AND FENTANYL DELIVERED BY PHARMACY, PLACED IN LOCK BOX IN [employer]. WILL ENDORSE TO ONCOMING SHIFT TO RETRIEVE WHEN READY TO ADMINISTER.
--- NOTE | 2020-04-29 22:33 | NUR ---
RN CLOSING NOTE: PATIENT REMAINS IN ROOM. NO SIGNS OF ACUTE DISTRESS NOTED AT THIS TIME. PATIENT IS STILL ON PRESSORS AND SEDATIONS. SINUS TACHY IN THE 100S NOTED ON THE BEDSIDE MONITOR. SAFETY MEASURES IMPLEMENTED, BED IN LOWEST POSITION, LOCKED, SIDE RAILS UP, CALL LIGHT WITHIN REACH. WILL ENDORSE TO ONCOMING SHIFT RN FOR CONTINUITY OF CARE.
--- NOTE | 2020-04-29 23:52 | NUR ---
RT DECREASED PT FIO2 FROM 80% TO 70% PT CURRENTLY TOLERATING SATURATING AT 95-96% AT THIS TIME. WILL CONTINUE TO CLOSELY MONITOR.
[2020-04-30] VITALS (87 sets, daily range): BP systolic 76–111; BP diastolic 50–70
[2020-04-30 00:04] LABS: BILIRUBIN,URINE SMALL (NEGATIVE); COLOR,URINE YELLOW (YELLOW); LEUKOCYTE ESTERASE ,URINE NEGATIVE (NEGATIVE); NITRITE, URINE NEGATIVE (NEGATIVE); PROTEIN,URINE TRACE mg/dl (NEGATIVE); UGLUCOSE NEGATIVE (NEGATIVE); UROBILINOGEN,URINE 0.2 EU/dL (0.2)
--- NOTE | 2020-04-30 00:10 | NUR ---
PHYSICIAN ANESTHESIOLOGIST OPENING NOTES RECEIVED PT IN BED. SEDATED WITH VERSED AND FENTANYL. VENT SETTINGS AC 24 TV 450 FIO2 80% PEEP 10. SAT 99% AT THIS TIME. PT TOLERATING WELL. PT IS NOT EXPERIENCING ANY RESP DISTRESS OR HAVING SOB. PT ON CARDIAC MONITORING SINUS TACHY HEART RATE OF 115 BASELINE TO PT. PT HAS NGT PRESENT. AUSCULTATED TO CONFIRM PLACEMENT. IV SITE DEMETRIUS PICC. ALSO RECEIVING D5 NS 0.9% RUNNING AT 75ML/HR. PT IS AFEBRILE AT THIS TIME. PT HAS HUGHES CATHETER DRAINING YELLOW URINE FREE OF SEDIMENT. SAFETY MEASURES IN PLACE. HOB ELEVATED TOLERATED. SIDE RAILS UP X2. BED LOCKED. WILL CONTINUE TO MONITOR. Addendum: 04/30/20 at 0016 by LEONARD JACOBS RN WRONG TIME DOCUMENTED
[2020-04-30 00:34] LABS: BACTERIA,URINE Few /HPF (None Seen); HYALINE CASTS, URINE Few /LPF (None Seen); MUCUS,URINE Few /LPF (None Seen); RBC,URINE 0-2 /HPF (0-2); SQUAMOUS EPITHELIAL CELL,UR Few /HPF (None Seen); YEAST,URINE Many /HPF (None Seen)
[2020-04-30] MEDS: BLOOD SUGAR DIAGNOSTIC 1 EACH STRIP IN SCH ×4 (00:41→17:41)
[2020-04-30] MEDS: INSULIN REGULAR, HUMAN 100 UNIT/ML 3 ML VIAL SQ PRN ×3 (00:46→12:06)
[2020-04-30] MEDS: IPRATROPIUM NEB FS 0.5 MG/2.5 ML AMPUL.NEB NEB SCH ×5 (01:28→19:54)
[2020-04-30] MEDS: ALBUTEROL FS 2.5 MG/0.5 ML VIAL.NEB NEB SCH ×6 (01:28→19:54)
[2020-04-30] MEDS: FENTANYL CITRAT IV 2,500 MCG in IV NS 0.9% 200 ML IV PRN ×3 (01:37→22:13)
[2020-04-30] MEDS: MIDAZOLAM HCL 100 MG in IV NS 0.9% 80 ML IV PRN ×3 (01:50→21:21)
[2020-04-30] MEDS: GLUCERNA 1.2 1,000 ML BOTTLE NG PRN (02:21)
[2020-04-30] MEDS: MEROPENEM 1 G in IV NS 0.9% 100 ML IV SCH ×3 (04:13→22:54)
[2020-04-30] MEDS: METOCLOPRAMIDE HCL 10 MG/2 ML VIAL IV SCH ×3 (04:13→22:55)
[2020-04-30 05:01] LABS: BASOPHILS % (AUTO) 0.7 % (0.0-2.0); EOSINOPHILS % (AUTO) 1.2 % (0.0-6.0); HEMATOCRIT 24 % (33-45); HEMOGLOBIN 7.6 g/dL (11.5-14.8); LYMPHOCYTES # (AUTO) 0.5 /CMM (0.8-4.8); LYMPHOCYTES % (AUTO) 12.6 % (20.0-44.0); MEAN CORPUSCULAR HGB CONC 32 g/dl (31.0-36.0); MEAN CORPUSCULAR VOLUME 85 fL (82-100); MONOCYTES # (AUTO) 0.2 /CMM (0.1-1.30); MONOCYTES % (AUTO) 5.9 % (2.0-12.0); NEUTROPHILS # (AUTO) 3.3 /CMM (1.8-8.9); NEUTROPHILS % (AUTO) 79.6 % (43.0-81.0); PLATELET COUNT (AUTO) 132 /CMM (150-450); RED BLOOD CELL COUNT(AUTO) 2.85 MIL/uL (4.0-5.2); WHITE BLOOD COUNT (AUTO) 4.2 K/uL (4.3-11.0)
[2020-04-30 05:02] LABS: CALCIUM, SERUM 7.5 mg/dL (8.5-10.1); CREATININE 0.6 mg/dL (0.6-1.3); MAGNESIUM 1.7 mg/dL (1.8-2.4); PHOSPHORUS 2.9 mg/dL (2.5-4.9); POTASSIUM 3.3 mmol/L (3.5-5.1)
[2020-04-30] MEDS: ACETAMINOPHEN 650 MG/20.3 ML UDC NG PRN ×2 (05:06→23:39)
--- NOTE | 2020-04-30 05:09 | NUR ---
PT NOTED TO HAVE TEMP OF 102.[address] ICE PACKS APPLIED TO GROIN AND UNDER AXILLARY. COLD COMPRESS APPLIED TO HEAD. COOLING BLANKET ON. AND TYLENOL VIA NGT PRN GIVEN. WILL CONTINUE TO MONITOR CLOSELY. Addendum: 04/30/20 at 0543 by LEONARD JACOBS RN CHARGE MADE AWARE, REASSESS PT TEMP IS 101.9 AT THIS TIME.
[2020-04-30] MEDS: PHENYLEPHRINE 50 MG in IV NS 0.9% 245 ML IV PRN ×2 (05:23→17:32)
[2020-04-30] MEDS: IV D5/ 0.9% NACL 1,000 ML IV PRN (05:24)
--- NOTE | 2020-04-30 07:15 | NUR ---
HEAVY EQUIPMENT RENTAL MANAGER NOTES RECEIVED PATIENT SEDATED , RESPONSIVE TO DEEP PAIN STIMULI , ON MECHANICAL VENT WITH SETTINGS OF AC 24 , TV 450 FIO2 80% AND PEEP OF 10 , ETT 12/[address] , NO DISTRESS AT THIS TIME , ST 75 ON BEDSIDE MONITOR , L NARE NGT PATENT AND INTACT WITH GLUCERNA@ 20ML/HR INFUSING WELL WITH NO RESIDUALS NOTED , FC DRIANING VIA GRAVITY , DEMETRIUS PICC LINE WITH FENTANYL @ 3MCH/KG/MIN , VERSED @ 7MG/HR , NEOSYNEPRINE @ 1MCG/KG/MIN , INFUSING WELL , ALL NEEDS ATTENDED , WILL CONTINUE TO MONITOR ,
--- NOTE | 2020-04-30 07:46 | NUR ---
CLOSING NOTES PT IS STILL SEDATED. STILL ON VENT SETTINGS ORDERED. BACK ON FIO2 OF 80% PT IS NOT EXPERIENCING ANY RESP DISTRESS OR HAVING SOB. PT ON CARDIAC MONITORING SINUS TACHY HEART RATE OF 101 AT THIS TIME. BASELINE TO PT. PT IS NOW AFEBRILE AT THIS TIME 98.5. COOLING MEASURES EFFECTIVE. RITIKA AT 1MCG, FENTANYL AT 3MCG, VERSED OF 7MG. TOLERATING WELL. GLUCERNA RUNNING AT 20CC/HR. TOLERATING WELL RESIDUALS STILL <10CC. SAFETY MEASURES IN PLACE. HOB ELEVATED. SIDE RAILS UP X2. BED LOCKED. ENDORSED TO AM NURSE FOR CONTINUATION OF CARE.
[2020-04-30] MEDS: PANTOPRAZOLE 40 MG/PACK PACK NG SCH (08:55)
[2020-04-30] MEDS: VORICONAZOLE 200 MG TABLET GT SCH ×2 (08:55→22:55)
[2020-04-30] MEDS: ENOXAPARIN SODIUM 40 MG/0.4 ML DISP.SYRIN SQ SCH (08:57)
--- NOTE | 2020-04-30 09:00 | NUR ---
SERVICE COORDINATOR [facility] FACILITY NOTES UNABLE TO PERFORM SEDATION VACATION , NO SEDATION VACATION PER MD
[2020-04-30] MEDS ORDERED: POTASSIUM CHLORIDE 20 MEQ POWDER PACKET NG SCH (10:00)
[2020-04-30] MEDS: Magnesium 1GM/D5W 100ML PREMIX 100 ML IV SCH ×2 (10:43→11:58)
--- NOTE | 2020-04-30 11:45 | NUR ---
HIDE HOUSE SUPERVISOR NOTES SEEN AND EVALUATED BY DR DUENAS , PT CURRENTLY ON AC 24 , TV 450 FIO2 60% AND PEEP OF 10 WITH SPO2 OF 98% , NO DISTRESS , ON NEOSYNEPRINE @ 1MCG/KG/MIN , VERSED @ 7MG/HR , FENTANYL@ 3MCG/KG/MIN , TOLERATING GT FEEDING , AWARE .
--- NOTE | 2020-04-30 13:28 | NUR ---
SENIOR MARKET INTELLIGENCE CONSULTANT NOTES SEEN AND EVALUATED BY DR FOREMAN , PT CURRENTLY ON AC 24 , TV 450 FIO2 60% AND PEEP OF 10 WITH SPO2 OF 98% , NO DISTRESS , ON NEOSYNEPRINE @ 1MCG/KG/MIN , VERSED @ 7MG/HR , FENTANYL@ 3MCG/KG/MIN , TOLERATING GT FEEDING WITH NO RESIDUALS , DISCUSSED LATEST LABS , NO BLEEDING NOTED , TEMP OF 102 LAST NIGHT PENDING BLOOD CULTURE AND URINE CULTURE DONE ON THE April , ELECTROLYTES REPLACED , H20 [id number] , VERIFIED IF LOVENOX OK TO GIVE IT WS HELD FOR 2 DAYS , PER MD OK TO GIVE LOVENOX ,
--- NOTE | 2020-04-30 15:07 | NUR ---
ROUNDING MACHINE TENDER NOTES FIO2 TITRATED UP FROM 50% TO 60% DUE TO SPO2 OF 87% SUSTAINED , WILL CONTINUE TO MONITOR
--- NOTE | 2020-04-30 16:18 | NUR ---
PARTY PLAN DEMONSTRATOR NOTES DR FOREMAN AGREED WITH DIETARY RECOMMENDATION OF PROSTAT TID AND INCREASE NG FEEDING TO 35ML/HR TOLERATED . ORDER CARRIED OUT
[2020-04-30] MEDS: PROSOURCE / PROSTAT (PYXIS) 30 ML UDC NG SCH (17:03)
[2020-04-30] MEDS: VANCOMYCIN 0.75 GM in IV D5W 250 ML IV SCH (18:01)
--- NOTE | 2020-04-30 18:35 | NUR ---
BELLHOP NOTES NOTIFIED DR DUENAS REGARDING PT STATUS , PT NOTED TO BE AGONAL ON VENT SETTINGS ORDERED , FIO2 OF 80 PEEP OF 10 TV 450 AC 24 , BP OF 95/58 ON NEOSYNEPRINE @ 1.5MCG/KG/MIN , VERSED @ 7 MG/HR AND FENTANYL @3MCG/KG/MIN . PER MD ORDER ABG , ORDER CARRIED OUT
[2020-04-30 18:46] LABS: ABG BASE EXCESS 3.1 mmol/L; ABG OXYGEN SATURATION 86.2 % (92.0-98.5); ABG PH 7.322 (7.350-7.450); ABG PO2 57.1 mmHg (75.0-100.0); AaDO2 451.4 mmHg; COHb 1.9 % (0.5-1.5); MetHb 0.1 % (0.0-1.5); O2Hb 84.5 % (94.0-97.0); PEEP,BG 10 cm H2O; SITE, ABG Right Radial; VT, ABG 450 mL
--- NOTE | 2020-04-30 18:53 | NUR ---
WAFER MOUNTER NOTES NOTIFIED DR DUENAS REGARDING ABG RESULTS , AWAITING FOR CALL BACK
--- NOTE | 2020-04-30 19:05 | NUR ---
director of agriculture. initial assessment. received the pt rest on the bed, orally intubated. ett #7,lip 22, ac 24, tv 450,fio2 80%peep 12. sat 98%. pt is tachypneic . generalized edema 4+. hob elevated. ngt feeding glucerna 35ml/h, rt upper arm picc line fentanyl 3mcg/kg/min.versed 9mcg/kg/min.mariano 1;5 mcg/kg/min,fc patent. hob elevated. will continue to monitor vitals.
--- NOTE | 2020-04-30 19:18 | NUR ---
SOLDERING MACHINE OPERATOR AUTOMATIC NOTES RECEIVED AN ORDER TO CHANGE PEEP TO 12 , CURRENT VENT SETTINGS OF AC 24 , TV 450 FIO2 TITRATE TO KEEP SPO2 ABOVE 92% AND PEEP OF 10 ,
--- NOTE | 2020-04-30 19:20 | NUR ---
AUTOMATION MACHINE BUILDER NOTES PATIENT NOTED TO BE AGONAL BREATHING , RESPONSIVE TO DEEP PAIN STIMULI , ON MECHANICAL VENT WITH SETTINGS OF AC 24 , TV 450 FIO2 80% AND PEEP OF 12 , ETT 12/[address] , NO DISTRESS AT THIS TIME , ST 114 ON BEDSIDE MONITOR , L NARE NGT PATENT AND INTACT WITH GLUCERNA@ 35ML/HR INFUSING WELL WITH NO RESIDUALS NOTED , FC DRIANING VIA GRAVITY , DEMETRIUS PICC LINE WITH FENTANYL @ 3MCG/KG/MIN , VERSED @ 7MG/HR , NEOSYNEPRINE @ 1.5MCG/KG/MIN , INFUSING WELL , ALL NEEDS ATTENDED , WILL CONTINUE TO MONITOR ,
--- NOTE | 2020-04-30 20:45 | NUR ---
agricultural labor camp manager. received the pt with very unstable. distress noted. family changed code status, now DNR .
[2020-05-01] VITALS (91 sets, daily range): BP systolic 75–113; BP diastolic 38–79
[2020-05-01] MEDS: BLOOD SUGAR DIAGNOSTIC 1 EACH STRIP IN SCH ×4 (00:26→17:15)
[2020-05-01] MEDS: INSULIN GLARGINE, 100 UNIT/ML CARTRIDGE SQ SCH ×2 (00:29→22:00)
[2020-05-01] MEDS: ALBUTEROL FS 2.5 MG/0.5 ML VIAL.NEB NEB SCH ×5 (01:30→19:49)
[2020-05-01] MEDS: PHENYLEPHRINE 50 MG in IV NS 0.9% 245 ML IV PRN ×4 (01:37→19:05)
[2020-05-01] MEDS: IPRATROPIUM NEB FS 0.5 MG/2.5 ML AMPUL.NEB NEB SCH ×5 (02:09→19:49)
--- NOTE | 2020-05-01 03:23 | NUR ---
RT NOTE Pt received intubated and on [facility] vent w ordered settings. Vent is plugged into red outlet. Alarms are set and audible w bmv @ hob. Airway is patent and secure. No resp distress noted t/o shift. Will continue to monitor. Addendum: 05/01/20 at 0323 by BIBI JACOBO RT Amended: Links added.
[2020-05-01] MEDS: MEROPENEM 1 G in IV NS 0.9% 100 ML IV SCH ×3 (05:45→21:29)
[2020-05-01] MEDS: METOCLOPRAMIDE HCL 10 MG/2 ML VIAL IV SCH ×3 (05:45→21:30)
[2020-05-01] MEDS: VANCOMYCIN 0.75 GM in IV D5W 250 ML IV SCH ×3 (05:50→18:40)
[2020-05-01] MEDS: ACETAMINOPHEN 650 MG/20.3 ML UDC NG PRN ×2 (05:58→18:47)
[2020-05-01 06:01] LABS: BASOPHILS % (AUTO) 0.4 % (0.0-2.0); EOSINOPHILS % (AUTO) 1.9 % (0.0-6.0); HEMATOCRIT 27 % (33-45); HEMOGLOBIN 8.5 g/dL (11.5-14.8); LYMPHOCYTES # (AUTO) 0.7 /CMM (0.8-4.8); LYMPHOCYTES % (AUTO) 9.6 % (20.0-44.0); MEAN CORPUSCULAR HGB CONC 32 g/dl (31.0-36.0); MEAN CORPUSCULAR VOLUME 84 fL (82-100); MONOCYTES # (AUTO) 0.3 /CMM (0.1-1.30); MONOCYTES % (AUTO) 4.7 % (2.0-12.0); NEUTROPHILS # (AUTO) 5.9 /CMM (1.8-8.9); NEUTROPHILS % (AUTO) 83.4 % (43.0-81.0); PLATELET COUNT (AUTO) 193 /CMM (150-450); RED BLOOD CELL COUNT(AUTO) 3.23 MIL/uL (4.0-5.2); WHITE BLOOD COUNT (AUTO) 7.1 K/uL (4.3-11.0)
[2020-05-01 06:26] LABS: CALCIUM, SERUM 7.5 mg/dL (8.5-10.1); CREATININE 0.7 mg/dL (0.6-1.3); PHOSPHORUS 3.2 mg/dL (2.5-4.9)
--- NOTE | 2020-05-01 07:15 | NUR ---
FOOD SERVICE ASSOCIATE NOTES RECEIVED PATIENT SEDATED , ON MECHANICAL VENT WITH SETTINGS OF AC 24 , TV 450 FIO2 60% AND PEEP OF 12 , ETT 12/[address] , NO DISTRESS AT THIS TIME , ST 105 ON BEDSIDE MONITOR , L NARE NGT PATENT AND INTACT WITH GLUCERNA@ 35ML/HR INFUSING WELL WITH NO RESIDUALS NOTED , FC DRIANING VIA GRAVITY , DEMETRIUS PICC LINE WITH FENTANYL @ 3MCG/KG/MIN , VERSED @ 7MG/HR , NEOSYNEPRINE @ 1.5MCG/KG/MIN , INFUSING WELL , ALL NEEDS ATTENDED , WILL CONTINUE TO MONITOR ,
[2020-05-01 08:21] LABS: ABG BASE EXCESS 3.1 mmol/L; ABG OXYGEN SATURATION 91.7 % (92.0-98.5); ABG PCO2 55.9 mmHg (35.0-45.0); AaDO2 292.3 mmHg; COHb 1.5 % (0.5-1.5); MetHb 0.1 % (0.0-1.5); O2Hb 90.2 % (94.0-97.0); PEEP,BG 12 cm H2O; SITE, ABG Right Radial; VENT MODE, BG AC 24 450 60% +12; VT, ABG 450 mL
--- NOTE | 2020-05-01 09:00 | NUR ---
DIRECTOR COUNSELING BUREAU NOTES UNABLE TO PERFORM SEDATION VACATION , NO SEDATION VACATION PER MD
[2020-05-01] MEDS: VORICONAZOLE 200 MG TABLET GT SCH ×2 (09:03→21:29)
[2020-05-01] MEDS: PANTOPRAZOLE 40 MG/PACK PACK NG SCH (09:03)
[2020-05-01] MEDS: PROSOURCE / PROSTAT (PYXIS) 30 ML UDC NG SCH ×3 (09:03→17:08)
[2020-05-01] MEDS: ENOXAPARIN SODIUM 40 MG/0.4 ML DISP.SYRIN SQ SCH (09:05)
[2020-05-01] MEDS ORDERED: FUROSEMIDE 40 MG/4 ML VIAL IV ONE (09:30)
[2020-05-01] MEDS: FENTANYL CITRAT IV 2,500 MCG in IV NS 0.9% 200 ML IV PRN ×2 (10:00→22:17)
[2020-05-01] MEDS: MIDAZOLAM HCL 100 MG in IV NS 0.9% 80 ML IV PRN ×2 (10:01→22:16)
--- NOTE | 2020-05-01 11:00 | NUR ---
DIALYSIS REGISTERED NURSE NOTES SEEN AND EVALUATED BY DR JEFF , PT CURRENTLY ON AC 24 , TV 450 FIO2 60% AND PEEP OF 12 WITH SPO2 OF 95% , ON NEOSYNEPRINE @ 1.5MCG/KG/MIN , VERSED @ 7MG/HR , FENTANYL@ 3MCG/KG/MIN , TOLERATING GT FEEDING , AWARE .
[2020-05-01] MEDS: INSULIN REGULAR, HUMAN 100 UNIT/ML 3 ML VIAL SQ PRN ×2 (12:44→17:16)
[2020-05-01 12:59] LABS: C-REACTIVE PROTEIN 26.9 mg/dL (0.0-0.9)
--- NOTE | 2020-05-01 13:00 | NUR ---
CONFIGURATION MANAGEMENT SPECIALIST NOTES SEEN AND EVALUATED BY DR FOREMAN DISCUSSED LABS , CHEST XRAY , PT CURRENTLY ON AC 24 , TV 450 FIO2 60% AND PEEP OF 12 WITH SPO2 OF 98% , NO DISTRESS , ON NEOSYNEPRINE @ 1.5MCG/KG/MIN , VERSED @ 7MG/HR , FENTANYL@ 3MCG/KG/MIN , TOLERATING GT FEEDING WITH NO RESIDUALS , DISCUSSED LATEST LABS , NO BLEEDING NOTED , TEMP OF 99.2 , ISOLATED PT FOR COVID PCR IS ORDERED , AWARE
[2020-05-01] MEDS: GLUCERNA 1.2 1,000 ML BOTTLE NG PRN (16:56)
[2020-05-01 18:36] LABS: BILIRUBIN,URINE NEGATIVE (NEGATIVE); COLOR,URINE YELLOW (YELLOW); LEUKOCYTE ESTERASE ,URINE NEGATIVE (NEGATIVE); NITRITE, URINE NEGATIVE (NEGATIVE); PROTEIN,URINE TRACE mg/dl (NEGATIVE); UGLUCOSE NEGATIVE (NEGATIVE); UROBILINOGEN,URINE 0.2 EU/dL (0.2)
[2020-05-01 18:47] LABS: BACTERIA,URINE Few /HPF (None Seen); RBC,URINE 0-2 /HPF (0-2); WBC,URINE 0-2 /HPF (0-3)
[2020-05-01 18:48] LABS: HYALINE CASTS, URINE Few /LPF (None Seen); MUCUS,URINE Few /LPF (None Seen); SQUAMOUS EPITHELIAL CELL,UR Few /HPF (None Seen); YEAST,URINE Many /HPF (None Seen)
--- NOTE | 2020-05-01 18:50 | NUR ---
HUMAN RESOURCES TRAINING MANAGER NOTES COVID PRC COLLECTED LABELED AND BROUGHT TO LAB SPUTUM , URINE CULTURE COLLECTED LABELED AND SENT TO LAB .
--- NOTE | 2020-05-01 19:02 | NUR ---
DISCHARGE SPECIALIST NOTES CALLED RT PT SPO2 94-85% ON FIO2 OF 55% PEEP OF 12 AC 24 TV 450 ,
--- NOTE | 2020-05-01 19:20 | NUR ---
spo2 decreased. fio2 increased to 70% Addendum: 05/01/20 at 1920 by KEYSHAWN AKHTAR Amended: Links added.
--- NOTE | 2020-05-01 19:23 | NUR ---
PATIENT ACCESS REGISTRAR NOTES PATIENT STABLE AT THIS TIME , ON MECHANICAL VENT WITH SETTINGS OF AC 24 , TV 450 FIO2 70% AND PEEP OF 12 , ETT 12/[address] , NO DISTRESS AT THIS TIME , ST 103 ON BEDSIDE MONITOR , L NARE NGT PATENT AND INTACT WITH GLUCERNA@ 35ML/HR INFUSING WELL WITH NO RESIDUALS NOTED , FC DRIANING VIA GRAVITY , DEMETRIUS PICC LINE WITH FENTANYL @ 3MCG/KG/MIN , VERSED @ 7MG/HR , NEOSYNEPRINE @ 2MCG/KG/MIN , INFUSING WELL , ALL NEEDS ATTENDED , WILL CONTINUE TO MONITOR ,
--- NOTE | 2020-05-01 19:30 | NUR ---
RN NOTES RECEIVED PATIENT SEDATED , ORALLY INTUBATED W/ VENT SETTINGS OF AC 24 , TV 450 FIO2 70% AND PEEP OF 10, NO ACUTE DISTRESS AT THIS TIME , ST ON TELE MONITOR , NGT ON LEFT NARES INTACT AND PATENT WITH GLUCERNA@ 35ML/HR INFUSING WELL WITH MINIMUM RESIDUALS PRESENT, FC DRAINING VIA GRAVITY , DEMETRIUS PICC LINE WITH FENTANYL @ 3MCG/KG/MIN , VERSED @ 7MG/HR , NEOSYNEPRINE @ 2 MCG/KG/MIN. TURNED AND REPOSITIONE Q2H AND PRN PT COMFORTABLE. KEPT PT CLEAN AND DRY WILL CLOSELY MONITOR.
[2020-05-02] VITALS (82 sets, daily range): BP systolic 73–120; BP diastolic 27–99
[2020-05-02] MEDS: PHENYLEPHRINE 50 MG in IV NS 0.9% 245 ML IV PRN ×3 (00:28→16:05)
[2020-05-02] MEDS: BLOOD SUGAR DIAGNOSTIC 1 EACH STRIP IN SCH ×5 (00:37→23:06)
[2020-05-02] MEDS: ALBUTEROL FS 2.5 MG/0.5 ML VIAL.NEB NEB SCH ×4 (01:23→20:22)
[2020-05-02] MEDS: IPRATROPIUM NEB FS 0.5 MG/2.5 ML AMPUL.NEB NEB SCH ×4 (01:23→20:22)
[2020-05-02] MEDS: VANCOMYCIN 0.75 GM in IV D5W 250 ML IV SCH ×3 (01:53→18:21)
[2020-05-02] MEDS: MEROPENEM 1 G in IV NS 0.9% 100 ML IV SCH ×3 (04:01→21:33)
[2020-05-02] MEDS: METOCLOPRAMIDE HCL 10 MG/2 ML VIAL IV SCH ×3 (05:00→20:12)
[2020-05-02 05:07] LABS: BASOPHILS % (AUTO) 0.4 % (0.0-2.0); EOSINOPHILS % (AUTO) 4.3 % (0.0-6.0); HEMATOCRIT 28 % (33-45); HEMOGLOBIN 8.7 g/dL (11.5-14.8); LYMPHOCYTES # (AUTO) 1.2 /CMM (0.8-4.8); LYMPHOCYTES % (AUTO) 13.7 % (20.0-44.0); MEAN CORPUSCULAR HGB CONC 32 g/dl (31.0-36.0); MEAN CORPUSCULAR VOLUME 84 fL (82-100); MONOCYTES # (AUTO) 0.4 /CMM (0.1-1.30); MONOCYTES % (AUTO) 5.1 % (2.0-12.0); NEUTROPHILS # (AUTO) 6.7 /CMM (1.8-8.9); NEUTROPHILS % (AUTO) 76.5 % (43.0-81.0); PLATELET COUNT (AUTO) 203 /CMM (150-450); RED BLOOD CELL COUNT(AUTO) 3.27 MIL/uL (4.0-5.2); WHITE BLOOD COUNT (AUTO) 8.7 K/uL (4.3-11.0)
[2020-05-02 05:34] LABS: D-DIMER 13.29 mg/L(FEU (0.17-0.50)
[2020-05-02 06:11] LABS: CALCIUM, SERUM 7.7 mg/dL (8.5-10.1); CREATININE 0.7 mg/dL (0.6-1.3); MAGNESIUM 1.8 mg/dL (1.8-2.4); PHOSPHORUS 3.8 mg/dL (2.5-4.9); POTASSIUM 3.8 mmol/L (3.5-5.1)
[2020-05-02 06:45] LABS: ABG BASE EXCESS 4.1 mmol/L; ABG OXYGEN SATURATION 88.2 % (92.0-98.5); ABG PCO2 59.9 mmHg (35.0-45.0); ABG PH 7.334 (7.350-7.450); ABG PO2 61.6 mmHg (75.0-100.0); AaDO2 373.1 mmHg; COHb 1.2 % (0.5-1.5); MetHb 0.1 % (0.0-1.5); O2Hb 87.1 % (94.0-97.0); PEEP,BG 12 cm H2O; SITE, ABG Right Radial
--- NOTE | 2020-05-02 07:33 | NUR ---
RN NOTES PATIENT REMAINED UNSTABLE. ETT AND VENT SETTING TOLERATED SATURATION ON 91%-93% CONTINUE ON RITIKA TO SUPPORT BP, ON FENTANYL, AND VERSED. IV ATB TOLERATED WELL, NO ASE NOTED. MAYO URINE OUTPUT PRESENT. LOW GRADE FEVER TMAX 100 DEG FAHRENHEIT NOTED. BED BATH DONE, KEPT PT CLEAN AND DRY. CONT. WITH POC.
[2020-05-02] MEDS: FENTANYL CITRAT IV 2,500 MCG in IV NS 0.9% 200 ML IV PRN ×2 (07:44→20:05)
[2020-05-02] MEDS: MIDAZOLAM HCL 100 MG in IV NS 0.9% 80 ML IV PRN ×2 (07:45→20:05)
--- NOTE | 2020-05-02 08:00 | NUR ---
agricultural extension officer received pt in bed intubated and sedated on versed and fentanyl, huff iv access patent, pt condition is guarded fever 101 cooling measures taken tylenol given turn and reposition in bed dr. Robert CHOW at bedside assessing pt no new orders received, will cont to monitor. safety measures taken
[2020-05-02] MEDS: PANTOPRAZOLE 40 MG/PACK PACK NG SCH (08:23)
[2020-05-02] MEDS: VORICONAZOLE 200 MG TABLET GT SCH ×2 (08:23→20:12)
[2020-05-02] MEDS: PROSOURCE / PROSTAT (PYXIS) 30 ML UDC NG SCH ×3 (08:24→17:38)
[2020-05-02] MEDS: ENOXAPARIN SODIUM 40 MG/0.4 ML DISP.SYRIN SQ SCH (08:26)
[2020-05-02] MEDS: ACETAMINOPHEN 650 MG/20.3 ML UDC NG PRN (08:34)
--- NOTE | 2020-05-02 18:13 | NUR ---
RT NOTE Pt received intubated and on [facility] vent w ordered settings. Vent is plugged into red outlet. Alarms are set and audible w bmv @ hob. Ett is secure and patent. No resp distress noted t/o shift. Will continue to monitor. Addendum: 05/02/20 at 1814 by BIBI JACOBO RT Amended: Links added.
--- NOTE | 2020-05-02 21:57 | NUR ---
RT pt received on mechanical vent. intubated with ett size 7.0 at 22@ lip. vent plugged in to red outlet. ambu bag at bedside. alarms on and audible. minimal secretions suctioned via ett. no sob, no resp distress. will continue to monitor.
[2020-05-02] MEDS: INSULIN GLARGINE, 100 UNIT/ML CARTRIDGE SQ SCH (23:05)
[2020-05-02] MEDS: INSULIN REGULAR, HUMAN 100 UNIT/ML 3 ML VIAL SQ PRN (23:07)
[2020-05-03] VITALS (86 sets, daily range): BP systolic 57–153; BP diastolic 17–76
[2020-05-03] MEDS: ALBUTEROL FS 2.5 MG/0.5 ML VIAL.NEB NEB SCH ×4 (01:30→19:30)
[2020-05-03] MEDS: IPRATROPIUM NEB FS 0.5 MG/2.5 ML AMPUL.NEB NEB SCH ×4 (01:44→19:30)
--- NOTE | 2020-05-03 01:44 | NUR ---
RT albuteral not given due to tachycardia
[2020-05-03] MEDS: VANCOMYCIN 0.75 GM in IV D5W 250 ML IV SCH ×3 (03:07→17:53)
[2020-05-03 03:56] LABS: BASOPHILS % (AUTO) 0.3 % (0.0-2.0); EOSINOPHILS % (AUTO) 2.2 % (0.0-6.0); HEMATOCRIT 25 % (33-45); HEMOGLOBIN 7.9 g/dL (11.5-14.8); LYMPHOCYTES # (AUTO) 0.7 /CMM (0.8-4.8); LYMPHOCYTES % (AUTO) 9.5 % (20.0-44.0); MEAN CORPUSCULAR HGB CONC 31 g/dl (31.0-36.0); MEAN CORPUSCULAR VOLUME 84 fL (82-100); MONOCYTES # (AUTO) 0.4 /CMM (0.1-1.30); MONOCYTES % (AUTO) 5.1 % (2.0-12.0); NEUTROPHILS # (AUTO) 6.3 /CMM (1.8-8.9); NEUTROPHILS % (AUTO) 82.9 % (43.0-81.0); PLATELET COUNT (AUTO) 159 /CMM (150-450); RED BLOOD CELL COUNT(AUTO) 3.03 MIL/uL (4.0-5.2); WHITE BLOOD COUNT (AUTO) 7.6 K/uL (4.3-11.0)
[2020-05-03 04:14] LABS: CALCIUM, SERUM 7.6 mg/dL (8.5-10.1); CREATININE 0.8 mg/dL (0.6-1.3); MAGNESIUM 1.7 mg/dL (1.8-2.4); PHOSPHORUS 3.9 mg/dL (2.5-4.9); POTASSIUM 4.1 mmol/L (3.5-5.1)
[2020-05-03] MEDS: BLOOD SUGAR DIAGNOSTIC 1 EACH STRIP IN SCH ×4 (05:20→23:18)
[2020-05-03] MEDS: METOCLOPRAMIDE HCL 10 MG/2 ML VIAL IV SCH ×3 (05:20→20:52)
[2020-05-03] MEDS: MEROPENEM 1 G in IV NS 0.9% 100 ML IV SCH ×3 (05:20→21:25)
--- NOTE | 2020-05-03 06:38 | NUR ---
Received patient in no acute distress in bed. patient did not have any significant change in condition during shift. Patient had a max temp of 100.3 and with cooling measures temp is now at 98.4. Patient tolerated vent setting well and tolerated feeding well at current dose. turn and repositioned q2h. will endorse care to am RN for continuity of care.
--- NOTE | 2020-05-03 07:10 | NUR ---
RN INITIAL NOTES RECEIVED PT INTUBATED, ON VENT. NO RESPIRATORY DISTRESS NOTED. NO SOB NOTED. NO SIGNS OF PAIN NOTED. HOB ELEVATED. DEMETRIUS PICC IN PLACE. PT ON RITIKA, VERSED AND FENTANYL DRIP. WILL TITRATE ACCORDINGLY. TOLERATING TUBE FEEDING WELL. NGT IN PLACE. HUGHES IN PLACE. BLE ELEVATED. WILL MONITOR
--- NOTE | 2020-05-03 07:51 | NUR ---
WOUND CARE CONSULT: REVIEWED CHART, NURSING DOCUMENTATION AND PHOTOS WHICH INDICATE LEFT EAR OPEN BLISTER/ABRASION AND GLUTEAL CREASE/RT BUTTOCK OPEN BLISTER. PT HAS MULTIPLE CO-MORBIDITIES INCLUDING GENERALIZED EDEMA, KIDNEY INJURY, SEPSIS, VENTILATOR DEPENDENT RESPIRATORY FAILURE, ANEMIA AND ACUTE ENCEPHALOPATHY. DUE TO MULTIPLE CO-MORIBIDITIES, FURTHER SKIN BREAKDOWN MAY BE UNAVOIDABLE. RECOMMENDATIONS MADE FOR WOUND CARE AND SKIN PROTECTION. Addendum: 05/03/20 at 0800 by LEISA SPANN WNDNU DISCUSSED RECOMMENDATIONS WITH NURSING STAFF. PT IS ON FIRST STEP DORENE MORGAN [facility] MATTRESS. KING IN AGREEMENT WITH PLAN OF CARE.
[2020-05-03] MEDS: PROSOURCE / PROSTAT (PYXIS) 30 ML UDC NG SCH ×3 (08:50→17:44)
[2020-05-03] MEDS: PANTOPRAZOLE 40 MG/PACK PACK NG SCH (08:50)
[2020-05-03] MEDS: VORICONAZOLE 200 MG TABLET GT SCH ×2 (08:50→23:16)
[2020-05-03] MEDS: ENOXAPARIN SODIUM 40 MG/0.4 ML DISP.SYRIN SQ SCH (09:10)
[2020-05-03] MEDS: NEOMY SULF/BACITRAC ZN/POLY 15 GM TUBE TP SCH ×2 (10:37→17:44)
[2020-05-03] MEDS: FENTANYL CITRAT IV 2,500 MCG in IV NS 0.9% 200 ML IV PRN (10:49)
[2020-05-03] MEDS: MIDAZOLAM HCL 100 MG in IV NS 0.9% 80 ML IV PRN (10:50)
[2020-05-03] MEDS: Magnesium 1GM/D5W 100ML PREMIX 100 ML IV SCH ×2 (12:03→13:20)
[2020-05-03 13:50] LABS: ABG BASE EXCESS 7.2 mmol/L; ABG PCO2 51.4 mmHg (35.0-45.0); ABG PH 7.419 (7.350-7.450); ABG PO2 57.9 mmHg (75.0-100.0); AaDO2 349.7 mmHg; COHb 2.2 % (0.5-1.5); MetHb 0.1 % (0.0-1.5); SITE, ABG Right Radial; VENT MODE, BG AC 24 450 65% 12
[2020-05-03] MEDS: PHENYLEPHRINE 50 MG in IV NS 0.9% 245 ML IV PRN (15:36)
--- NOTE | 2020-05-03 18:37 | NUR ---
RN CLOSING NOTES NO SIGNIFICANT CHANGE NOTED. PT REMAINS INTUBATED, ON VENT. REMIANS ON RITIKA, VERSED AND FENTANYL DRIP. TOLERATING TUBE FEEDING WELL. HUGHES IN PLACE. KEPT CLEAN AND DRY. KEPT COMFORTABLE. REPOSITIONED WHEN ABLE DUE TO ISOLATION. WILL ENDORSE FOR CONTINUITY OF CARE.
--- NOTE | 2020-05-03 20:25 | NUR ---
TYING MACHINE OPERATOR OPENING NOTES RECEIVED PT IN BED. SEDATED WITH VERSED AND FENTANYL. TRACH 7.0/22 AT LIP. VENT SETTINGS AC 24 TV 450 FIO2 70% PEEP 12. SAT 99% AT THIS TIME. PT TOLERATING WELL. PT IS NOT EXPERIENCING ANY RESP DISTRESS OR HAVING SOB. PT ON CARDIAC MONITORING SINUS TACHY HEART RATE OF 107 BASELINE TO PT. PT HAS NGT PRESENT. AUSCULTATED TO CONFIRM PLACEMENT. RESIDUAL <35CC. GLUCERNA RUNNING AT 35CC/HR. IV SITE DEMETRIUS PICC PRESENT. PT TEMP PRESENTS 100.1 PT HAS COOLING BLANKET ON. WILL CONTINUE TO MONITOR. PT HAS HUGHES CATHETER DRAINING YELLOW URINE FREE OF SEDIMENT. SAFETY MEASURES IN PLACE. HOB ELEVATED TOLERATED. SIDE RAILS UP X2. BED LOCKED. WILL CONTINUE TO MONITOR.
--- NOTE | 2020-05-03 21:25 | NUR ---
PHARMACY DROPPED OFF NEW BAG OF VERSED AND FENTANYL. PLACED IN LOCKED BOX IN MED ROOM. ENDORSED TO ONCOMING NURSE.
--- NOTE | 2020-05-03 21:45 | NUR ---
ICU/DIGITAL CONTENT MANAGER RECEIVED REPORT FROM LAURO NURSELEONARD FOR CONTINUATION OF CARE.
--- NOTE | 2020-05-03 21:59 | NUR ---
REPORT GIVEN TO CONNOR EPPS FOR CONTINUATION OF CARE. PT IS STABLE AT THIS TIME. Addendum: 05/03/20 at 2208 by LEONARD JACOBS RN CONNOR BARILLAS
--- NOTE | 2020-05-03 22:26 | NUR ---
ICU/HNX-AFFAS-77 PCR NEGATIVE
[2020-05-03] MEDS: INSULIN GLARGINE, 100 UNIT/ML CARTRIDGE SQ SCH (23:00)
--- NOTE | 2020-05-03 23:34 | NUR ---
ICU/AIR GUN OPERATOR BLOOD SUGAR IS 77, 2200 DOSE OF LANTUS ID ON HOLD FOR TONIGHT. ORDER WAS OBTAINED TO HOLD THIS. WILL CONTINUE TO CHECK IT ORDERED.
[2020-05-04] VITALS (94 sets, daily range): BP systolic 36–172; BP diastolic 22–108
[2020-05-04] MEDS: FENTANYL CITRAT IV 2,500 MCG in IV NS 0.9% 200 ML IV PRN ×2 (00:21→13:55)
[2020-05-04] MEDS: MIDAZOLAM HCL 100 MG in IV NS 0.9% 80 ML IV PRN ×2 (00:23→13:54)
--- NOTE | 2020-05-04 00:51 | NUR ---
RT NOTE Pt rec'd orally intubated via ETT 7.0 secured @ 22cm at the lipline. Pt on [facility] vent on AC mode settings as charted. Pt sx'd for thick mod amt of rosario secretions. Alarms are set and audible. Ambu bag bedside. Vent plugged into red outlet. Will continue to monitor closely. Addendum: 05/04/20 at 0055 by SHANA WINTERS RT Amended: Links added.
[2020-05-04] MEDS: VANCOMYCIN 0.75 GM in IV D5W 250 ML IV SCH ×2 (01:53→10:00)
[2020-05-04] MEDS: PHENYLEPHRINE 50 MG in IV NS 0.9% 245 ML IV PRN (01:56)
[2020-05-04] MEDS: ALBUTEROL FS 2.5 MG/0.5 ML VIAL.NEB NEB SCH ×4 (02:04→19:48)
[2020-05-04] MEDS: IPRATROPIUM NEB FS 0.5 MG/2.5 ML AMPUL.NEB NEB SCH ×4 (02:04→19:48)
[2020-05-04] MEDS: MEROPENEM 1 G in IV NS 0.9% 100 ML IV SCH ×3 (04:57→21:01)
[2020-05-04] MEDS: METOCLOPRAMIDE HCL 10 MG/2 ML VIAL IV SCH ×3 (04:57→21:01)
[2020-05-04] MEDS: GLUCERNA 1.2 1,000 ML BOTTLE NG PRN (04:58)
[2020-05-04] MEDS: ACETAMINOPHEN 650 MG/20.3 ML UDC NG PRN (04:58)
[2020-05-04 05:07] LABS: BASOPHILS % (AUTO) 0.6 % (0.0-2.0); EOSINOPHILS % (AUTO) 3.2 % (0.0-6.0); HEMATOCRIT 25 % (33-45); HEMOGLOBIN 7.8 g/dL (11.5-14.8); LYMPHOCYTES # (AUTO) 0.8 /CMM (0.8-4.8); LYMPHOCYTES % (AUTO) 10.9 % (20.0-44.0); MEAN CORPUSCULAR HGB CONC 31 g/dl (31.0-36.0); MEAN CORPUSCULAR VOLUME 84 fL (82-100); MONOCYTES # (AUTO) 0.5 /CMM (0.1-1.30); MONOCYTES % (AUTO) 6.3 % (2.0-12.0); NEUTROPHILS # (AUTO) 5.8 /CMM (1.8-8.9); PLATELET COUNT (AUTO) 189 /CMM (150-450); RED BLOOD CELL COUNT(AUTO) 2.97 MIL/uL (4.0-5.2); WHITE BLOOD COUNT (AUTO) 7.4 K/uL (4.3-11.0)
[2020-05-04 05:20] LABS: CREATININE 0.7 mg/dL (0.6-1.3); MAGNESIUM 1.9 mg/dL (1.8-2.4); PHOSPHORUS 3.5 mg/dL (2.5-4.9); POTASSIUM 4.3 mmol/L (3.5-5.1)
--- NOTE | 2020-05-04 05:30 | NUR ---
ICU/FRUIT DISTRIBUTOR PT HAD INCREASED HEART RATE TO 140'S WITH TEMP 101.8, GAVE TYLENOL FOR THIS ALONG WITH AN ICE BATH. ALSO PLACED THE COOLING BLANKET ON PT. WILL MONITOR THIS PT.
[2020-05-04] MEDS: BLOOD SUGAR DIAGNOSTIC 1 EACH STRIP IN SCH ×4 (05:42→23:50)
--- NOTE | 2020-05-04 06:59 | NUR ---
ICU/ASSEMBLY SUPERVISOR G/TUBE RESIDUALS IS 125ML FEEDING IS OFF TO AVOID ASPIRATION. WILL PASS ON TO DAY SHIFT NURSE.
--- NOTE | 2020-05-04 07:10 | NUR ---
RN INITIAL NOTES RECEIVED PT INTUBATED, ON VENT. NO RESPIRATORY DISTRESS NOTED. NO SOB NOTED. NO SIGNS OF PAIN NOTED. HOB ELEVATED. EDMETRIUS PICC IN PLACE. PT ON RITIKA, VERSED AND FENTANYL DRIP. WILL TITRATE ACCORDINGLY. TUBE FEEDING ON HOLD. NGT IN PLACE. WILL MONITOR FOR RESIDUALS. HUGHES IN PLACE. BLE ELEVATED. WILL MONITOR
[2020-05-04] MEDS: NEOMY SULF/BACITRAC ZN/POLY 15 GM TUBE TP SCH ×2 (08:49→16:26)
[2020-05-04] MEDS: VORICONAZOLE 200 MG TABLET GT SCH ×2 (08:49→21:01)
[2020-05-04] MEDS: PROSOURCE / PROSTAT (PYXIS) 30 ML UDC NG SCH ×3 (08:49→16:25)
[2020-05-04] MEDS: PANTOPRAZOLE 40 MG/PACK PACK NG SCH (08:49)
[2020-05-04] MEDS: ENOXAPARIN SODIUM 40 MG/0.4 ML DISP.SYRIN SQ SCH (12:31)
[2020-05-04 12:32] LABS: BILIRUBIN,DIRECT 0.3 mg/dL (0.0-0.2); BILIRUBIN,TOTAL 0.3 mg/dL (0.2-1.0); TOTAL PROTEIN, SERUM 5.5 g/dL (6.4-8.2)
[2020-05-04 12:37] LABS: ALBUMIN 0.9 g/dL (3.4-5.0)
[2020-05-04] MEDS ORDERED: VANCOMYCIN 0.75 GM in IV D5W 250 ML IV SCH (15:00)
[2020-05-04 18:17] LABS: BILIRUBIN,URINE NEGATIVE (NEGATIVE); COLOR,URINE YELLOW (YELLOW); LEUKOCYTE ESTERASE ,URINE NEGATIVE (NEGATIVE); NITRITE, URINE NEGATIVE (NEGATIVE); PH,URINE 5.5 (5.0-8.0); PROTEIN,URINE NEGATIVE (NEGATIVE); UGLUCOSE NEGATIVE (NEGATIVE); UROBILINOGEN,URINE 0.2 EU/dL (0.2)
[2020-05-04 18:36] LABS: BACTERIA,URINE Few /HPF (None Seen); SQUAMOUS EPITHELIAL CELL,UR Few /HPF (None Seen)
--- NOTE | 2020-05-04 18:59 | NUR ---
RN CLOSING NOTES NO SIGNIFICANT CHANGE NOTED. PT REMAINS INTUBATED, VENT SETTINGS ADJUSTED. REMAINS ON VERSED AND FENTANYL DRIP. TOLERATING TUBE FEEDING WELL. HUGHES IN PLACE. KEPT CLEAN AND DRY. KEPT COMFORTABLE. REPOSITIONED. WILL ENDORSE FOR CONTINUITY OF CARE.
[2020-05-04] MEDS: INSULIN GLARGINE, 100 UNIT/ML CARTRIDGE SQ SCH (23:49)
[2020-05-05] VITALS (31 sets, daily range): BP systolic 76–128; BP diastolic 43–99
[2020-05-05] MEDS: FENTANYL CITRAT IV 2,500 MCG in IV NS 0.9% 200 ML IV PRN ×2 (00:10→10:44)
[2020-05-05] MEDS: MIDAZOLAM HCL 100 MG in IV NS 0.9% 80 ML IV PRN ×2 (00:16→10:43)
[2020-05-05] MEDS: ALBUTEROL FS 2.5 MG/0.5 ML VIAL.NEB NEB SCH ×4 (01:51→19:47)
[2020-05-05] MEDS: IPRATROPIUM NEB FS 0.5 MG/2.5 ML AMPUL.NEB NEB SCH ×4 (01:51→19:47)
[2020-05-05 04:15] LABS: BASOPHILS % (AUTO) 0.4 % (0.0-2.0); EOSINOPHILS % (AUTO) 2.8 % (0.0-6.0); HEMATOCRIT 23 % (33-45); HEMOGLOBIN 7.3 g/dL (11.5-14.8); LYMPHOCYTES # (AUTO) 0.9 /CMM (0.8-4.8); LYMPHOCYTES % (AUTO) 20.1 % (20.0-44.0); MEAN CORPUSCULAR HGB CONC 31 g/dl (31.0-36.0); MEAN CORPUSCULAR VOLUME 83 fL (82-100); MONOCYTES # (AUTO) 0.4 /CMM (0.1-1.30); MONOCYTES % (AUTO) 8.3 % (2.0-12.0); NEUTROPHILS % (AUTO) 68.4 % (43.0-81.0); PLATELET COUNT (AUTO) 145 /CMM (150-450); RED BLOOD CELL COUNT(AUTO) 2.79 MIL/uL (4.0-5.2); WHITE BLOOD COUNT (AUTO) 4.4 K/uL (4.3-11.0)
[2020-05-05 04:41] LABS: CALCIUM, SERUM 7.8 mg/dL (8.5-10.1); CREATININE 0.7 mg/dL (0.6-1.3); MAGNESIUM 1.7 mg/dL (1.8-2.4); POTASSIUM 4.6 mmol/L (3.5-5.1)
[2020-05-05] MEDS: MEROPENEM 1 G in IV NS 0.9% 100 ML IV SCH ×3 (04:41→21:46)
[2020-05-05] MEDS: METOCLOPRAMIDE HCL 10 MG/2 ML VIAL IV SCH ×3 (04:43→21:46)
[2020-05-05] MEDS: BLOOD SUGAR DIAGNOSTIC 1 EACH STRIP IN SCH ×3 (05:30→17:43)
--- NOTE | 2020-05-05 07:10 | NUR ---
RN INITIAL NOTES RECEIVED PT INTUBATED, ON VENT. NO RESPIRATORY DISTRESS NOTED. NO SOB NOTED. NO SIGNS OF PAIN NOTED. HOB ELEVATED. DEMETRIUS PICC IN PLACE. PT ON VERSED AND FENTANYL DRIP. WILL TITRATE ACCORDINGLY. TUBE FEEDING RUNNING. NGT IN PLACE. WILL MONITOR FOR RESIDUALS. HUGHES IN PLACE. BLE ELEVATED. WILL MONITOR
[2020-05-05] MEDS: VANCOMYCIN 0.75 GM in IV D5W 250 ML IV SCH ×2 (07:35→18:04)
[2020-05-05] MEDS: PANTOPRAZOLE 40 MG/PACK PACK NG SCH (09:00)
[2020-05-05] MEDS: VORICONAZOLE 200 MG TABLET GT SCH ×2 (09:00→21:47)
[2020-05-05] MEDS: PROSOURCE / PROSTAT (PYXIS) 30 ML UDC NG SCH ×3 (09:01→17:15)
[2020-05-05] MEDS: NEOMY SULF/BACITRAC ZN/POLY 15 GM TUBE TP SCH ×2 (09:01→17:16)
[2020-05-05] MEDS: ENOXAPARIN SODIUM 40 MG/0.4 ML DISP.SYRIN SQ SCH (09:18)
[2020-05-05 10:40] LABS: ABG BASE EXCESS 6.6 mmol/L; ABG OXYGEN SATURATION 96.6 % (92.0-98.5); ABG PCO2 52.4 mmHg (35.0-45.0); ABG PH 7.403 (7.350-7.450); ABG PO2 108.9 mmHg (75.0-100.0); AaDO2 261.3 mmHg; COHb 2.4 % (0.5-1.5); MetHb 0.1 % (0.0-1.5); O2Hb 94.2 % (94.0-97.0); PEEP,BG 10 cm H2O; SITE, ABG Left Radial; VT, ABG 400 mL
[2020-05-05] MEDS: GLUCERNA 1.2 1,000 ML BOTTLE NG PRN ×2 (10:42→10:44)
[2020-05-05] MEDS: Magnesium 1GM/D5W 100ML PREMIX 100 ML IV SCH ×2 (10:57→12:04)
[2020-05-05] MEDS ORDERED: FUROSEMIDE 40 MG/4 ML VIAL IV ONE (13:30)
--- NOTE | 2020-05-05 19:45 | NUR ---
icu/pharmacy helper Received report from day nurse, see flowsheet for assessment and see iv spread sheet for iv's. skin issues are addressed on assessment. Pt turned and repositioned for comfort and care
[2020-05-05] MEDS: PHENYLEPHRINE 50 MG in IV NS 0.9% 245 ML IV PRN (21:23)
--- NOTE | 2020-05-05 21:30 | NUR ---
icu/pigment furnace tender mariano started by charge nurse for low bp, will monitor this
[2020-05-05] MEDS: ACETAMINOPHEN 650 MG/20.3 ML UDC NG PRN (21:47)
[2020-05-05] MEDS: INSULIN GLARGINE, 100 UNIT/ML CARTRIDGE SQ SCH (22:00)
--- NOTE | 2020-05-05 22:08 | NUR ---
icu/a and p mechanic blood sugar is 61 no lantus for this pt, will monitor this pt.
[2020-05-06] VITALS (64 sets, daily range): BP systolic 74–155; BP diastolic 35–102
[2020-05-06] MEDS: BLOOD SUGAR DIAGNOSTIC 1 EACH STRIP IN SCH ×4 (00:07→18:00)
[2020-05-06] MEDS: DEXTROSE 50%-WATER 50 ML DISP.SYRIN IV PRN ×2 (00:08→12:12)
--- NOTE | 2020-05-06 00:20 | NUR ---
ICU/SHOULDER JOINER PT'S BLOOD SUGAR IS 48, STAT LAB AND DEXTROSE GIVEN BY BILL CHECKER NURSE. WILL RECHECK AFTER 30 MINUTES.
[2020-05-06] MEDS: FENTANYL CITRAT IV 2,500 MCG in IV NS 0.9% 200 ML IV PRN ×2 (00:21→13:47)
[2020-05-06] MEDS: MIDAZOLAM HCL 100 MG in IV NS 0.9% 80 ML IV PRN ×2 (00:22→13:46)
--- NOTE | 2020-05-06 01:00 | NUR ---
ICU/TEACHER OF THE SIGHT IMPAIRED RECHECK IS 81 BLOOD SUGAR.
[2020-05-06] MEDS: ALBUTEROL FS 2.5 MG/0.5 ML VIAL.NEB NEB SCH ×4 (02:08→20:45)
[2020-05-06] MEDS: IPRATROPIUM NEB FS 0.5 MG/2.5 ML AMPUL.NEB NEB SCH ×4 (02:08→20:45)
[2020-05-06 04:53] LABS: BASOPHILS % (AUTO) 0.2 % (0.0-2.0); EOSINOPHILS % (AUTO) 7.3 % (0.0-6.0); HEMATOCRIT 22 % (33-45); LYMPHOCYTES # (AUTO) 0.5 /CMM (0.8-4.8); LYMPHOCYTES % (AUTO) 10.4 % (20.0-44.0); MEAN CORPUSCULAR HGB CONC 32 g/dl (31.0-36.0); MEAN CORPUSCULAR VOLUME 83 fL (82-100); MONOCYTES # (AUTO) 0.5 /CMM (0.1-1.30); MONOCYTES % (AUTO) 10.4 % (2.0-12.0); NEUTROPHILS # (AUTO) 3.1 /CMM (1.8-8.9); NEUTROPHILS % (AUTO) 71.7 % (43.0-81.0); PLATELET COUNT (AUTO) 190 /CMM (150-450); RED BLOOD CELL COUNT(AUTO) 2.62 MIL/uL (4.0-5.2); WHITE BLOOD COUNT (AUTO) 4.3 K/uL (4.3-11.0)
[2020-05-06 05:01] LABS: CREATININE 0.7 mg/dL (0.6-1.3); MAGNESIUM 1.8 mg/dL (1.8-2.4); PHOSPHORUS 4.1 mg/dL (2.5-4.9)
[2020-05-06 05:03] LABS: HEMOGLOBIN 6.9 g/dL (11.5-14.8)
[2020-05-06 05:44] LABS: LYMPHOCYTES % (MANUAL) 10 % (16-48); MONOCYTES % (MANUAL) 12 % (0-11.0); NEUTROPHILS % (MANUAL) 73 (42-76)
[2020-05-06 05:45] LABS: EOSINOPHILS % (MANUAL) 5 % (0-4)
[2020-05-06] MEDS: METOCLOPRAMIDE HCL 10 MG/2 ML VIAL IV SCH ×3 (05:53→23:43)
[2020-05-06] MEDS: MEROPENEM 1 G in IV NS 0.9% 100 ML IV SCH ×3 (05:53→23:48)
[2020-05-06] MEDS: IV NS 0.9% 250 ML IV PRN (05:59)
--- NOTE | 2020-05-06 07:30 | NUR ---
RECEIVED PATIENT IN BED. NO ACUTE DISTRESS NOTED. PATIENT SEDATED ON FENTANYL, VERSED. PATIENT TOLERATING VENT SETTINGS WELL, SATURATING AT 96%. PATIENT ON BEDSPREAD SEAMER, NORMAL SINUS RHYTHM NOTED. PATIENT LEFT NARE NGT IN PLACE, INTACT, PATENT. PATIENT HUGHES CATHETER IN PLACE, INTACT, DRAINING TO GRAVITY. PATIENT RIGHT UPPER ARM PICC LINE IN PLACE, INTACT, PATENT, FLUSHED WELL. PATIENT SAFETY MEASURES MAINTAINED. WILL CONTINUE TO MONITOR.
[2020-05-06] MEDS: VANCOMYCIN 0.75 GM in IV D5W 250 ML IV SCH (08:19)
[2020-05-06] MEDS: PANTOPRAZOLE 40 MG/PACK PACK NG SCH (08:19)
[2020-05-06] MEDS: PROSOURCE / PROSTAT (PYXIS) 30 ML UDC NG SCH ×3 (08:20→16:29)
[2020-05-06] MEDS: ENOXAPARIN SODIUM 40 MG/0.4 ML DISP.SYRIN SQ SCH (08:20)
[2020-05-06] MEDS: VORICONAZOLE 200 MG TABLET GT SCH ×2 (08:20→23:46)
[2020-05-06] MEDS: NEOMY SULF/BACITRAC ZN/POLY 15 GM TUBE TP SCH ×2 (08:20→16:30)
[2020-05-06] MEDS: LORAZEPAM INJ 2 MG/ML VIAL IV PRN (15:55)
[2020-05-06] MEDS: ACETAMINOPHEN 650 MG/20.3 ML UDC NG PRN (15:59)
[2020-05-06] MEDS: IV D5/0.45 NACL 1,000 ML IV PRN (18:28)
--- NOTE | 2020-05-06 18:47 | NUR ---
PATIENT IN BED. NO ACUTE DISTRESS NOTED. PATIENT S/P INTUBATION, STAT CHEST X-RAY ORDERED. PATIENT TOLERATING VENT SETTINGS, SATURATING AT 98%. PATIENT ON ACCESS SPECIALIST, SINUS TACHYCARDIA NOTED. PATIENT HUGHES CATHETER IN PLACE, INTACT, DRAINING TO GRAVITY. PATIENT HORTENCIA MIDLINE IN PLACE, INTACT, PATENT. PATIENT NPO STATUS OBSERVED. PATIENT SEDATED ON PROPOFOL. PATIENT SAFETY MEASURES MAINTAINED. WILL ENDORSE PLAN OF CARE TO ONCOMING SHIFT
--- NOTE | 2020-05-06 23:43 | NUR ---
RT NOTE Pt rec'd orally intubated via ETT 7.0 secured @ 22cm at the lipline. Pt on [facility] vent on AC mode settings as charted. Pt sx'd for thick mod amt of rosario secretions. Alarms are set and audible. Ambu bag bedside. Vent plugged into red outlet. Will continue to monitor closely. Addendum: 05/06/20 at 2343 by SHANA WINTERS RT Amended: Links added.
[2020-05-07] VITALS (71 sets, daily range): BP systolic 99–156; BP diastolic 54–97
[2020-05-07] MEDS: INSULIN GLARGINE, 100 UNIT/ML CARTRIDGE SQ SCH (00:08)
[2020-05-07] MEDS: BLOOD SUGAR DIAGNOSTIC 1 EACH STRIP IN SCH ×4 (00:40→17:36)
[2020-05-07] MEDS: INSULIN REGULAR, HUMAN 100 UNIT/ML 3 ML VIAL SQ PRN ×2 (00:54→06:53)
[2020-05-07] MEDS: IPRATROPIUM NEB FS 0.5 MG/2.5 ML AMPUL.NEB NEB SCH ×4 (02:08→20:01)
[2020-05-07] MEDS: ALBUTEROL FS 2.5 MG/0.5 ML VIAL.NEB NEB SCH ×4 (02:08→20:01)
[2020-05-07] MEDS: FENTANYL CITRAT IV 2,500 MCG in IV NS 0.9% 200 ML IV PRN ×3 (03:57→22:22)
[2020-05-07] MEDS: MIDAZOLAM HCL 100 MG in IV NS 0.9% 80 ML IV PRN ×3 (03:58→22:21)
[2020-05-07 06:03] LABS: BASOPHILS % (AUTO) 0.5 % (0.0-2.0); EOSINOPHILS % (AUTO) 6.1 % (0.0-6.0); HEMATOCRIT 23 % (33-45); HEMOGLOBIN 7.2 g/dL (11.5-14.8); LYMPHOCYTES # (AUTO) 0.5 /CMM (0.8-4.8); LYMPHOCYTES % (AUTO) 11.7 % (20.0-44.0); MEAN CORPUSCULAR HGB CONC 32 g/dl (31.0-36.0); MEAN CORPUSCULAR VOLUME 86 fL (82-100); MONOCYTES # (AUTO) 0.4 /CMM (0.1-1.30); NEUTROPHILS # (AUTO) 3.1 /CMM (1.8-8.9); NEUTROPHILS % (AUTO) 71.7 % (43.0-81.0); PLATELET COUNT (AUTO) 178 /CMM (150-450); RED BLOOD CELL COUNT(AUTO) 2.64 MIL/uL (4.0-5.2); WHITE BLOOD COUNT (AUTO) 4.3 K/uL (4.3-11.0)
[2020-05-07 06:13] LABS: CALCIUM, SERUM 7.1 mg/dL (8.5-10.1); CREATININE 0.6 mg/dL (0.6-1.3); MAGNESIUM 1.6 mg/dL (1.8-2.4); PHOSPHORUS 3.6 mg/dL (2.5-4.9)
[2020-05-07] MEDS: MEROPENEM 1 G in IV NS 0.9% 100 ML IV SCH ×3 (06:36→20:24)
[2020-05-07] MEDS: METOCLOPRAMIDE HCL 10 MG/2 ML VIAL IV SCH ×3 (06:37→20:23)
[2020-05-07] MEDS: IV D5/0.45 NACL 1,000 ML IV PRN ×2 (06:44→18:00)
[2020-05-07] MEDS: VORICONAZOLE 200 MG TABLET GT SCH ×2 (08:36→20:23)
[2020-05-07] MEDS: PANTOPRAZOLE 40 MG/PACK PACK NG SCH (08:36)
[2020-05-07] MEDS: PROSOURCE / PROSTAT (PYXIS) 30 ML UDC NG SCH ×3 (08:37→16:42)
[2020-05-07] MEDS: NEOMY SULF/BACITRAC ZN/POLY 15 GM TUBE TP SCH ×2 (08:38→16:43)
[2020-05-07] MEDS: ENOXAPARIN SODIUM 40 MG/0.4 ML DISP.SYRIN SQ SCH (09:00)
--- NOTE | 2020-05-07 09:22 | NUR ---
RN notes Patient in bed with eyes closed. No physical manifestation of pain or discomfort. No respiratory distress noted. Breathing even and unlabored. Vent setting well tolerated. ON Pain medication Jenny and Radha, no adverse effect noted. Kept clean and dry. Endorsed to next shift for continuity of care.
[2020-05-07] MEDS: Magnesium 1GM/D5W 100ML PREMIX 100 ML IV SCH ×2 (13:35→15:02)
[2020-05-07] MEDS: LORAZEPAM INJ 2 MG/ML VIAL IV PRN (14:15)
--- NOTE | 2020-05-07 17:15 | NUR ---
RN NOTES BS CHECK 47, RECHECKED WITH BS OF 61. WILL ADMINISTER D50.
[2020-05-07] MEDS: DEXTROSE 50%-WATER 50 ML DISP.SYRIN IV PRN (17:37)
--- NOTE | 2020-05-07 19:10 | NUR ---
RN NOTES PATIENT IN BED, ON A VENT, SEDATED, STILL ON VERSED AND FENTANYL. NO SIGNS OF DISTRESS NOTED, SAFETY MEASURES IN PLACE, WILL ENDORSE TO NEWSPAPER ILLUSTRATOR NURSE FOR CHANA.
--- NOTE | 2020-05-07 20:01 | NUR ---
PT REC'D ORALLY INTUBATED VIA ETT 7.0 SECURED @ 22 CM LIP LINE ON [facility] WITH NOTED SETTINGS. NO RESPIRATORY DISTRESS NOTED AT THIS TIME. Q6 BREATHING TX GIVEN PER MD'S ORDER. NO ADVERSE REACTION NOTED. SX DONE. ALARMS ARE SET AND AUDIBLE. VENT PLUGGED INTO RED OUTLET. AMBU BAG@ BEDSIDE. WILL CONTINUE TO MONITOR T/O THE SHIFT.
[2020-05-08] VITALS (25 sets, daily range): BP systolic 101–155; BP diastolic 21–98
--- NOTE | 2020-05-08 00:20 | NUR ---
READING TUTOR: LILY DONE WT RESULT OF 61. NO S/S OF HYPOGLYCEMIA. NO DIAPHORESIS NOTED. CONTINUE ON D5 1/2 NS AT 75ML/HR AND GLUCERNA 1.2 AT 35ML/HR VIA NGT AND TOLERATING WELL. VENT SETTINGS ORDERED. WILL CONTINUE TO MONITOR.
[2020-05-08] MEDS: INSULIN GLARGINE, 100 UNIT/ML CARTRIDGE SQ SCH ×2 (00:30→22:35)
[2020-05-08] MEDS: BLOOD SUGAR DIAGNOSTIC 1 EACH STRIP IN SCH ×5 (00:34→23:46)
[2020-05-08] MEDS: ALBUTEROL FS 2.5 MG/0.5 ML VIAL.NEB NEB SCH ×4 (01:46→20:12)
[2020-05-08] MEDS: IPRATROPIUM NEB FS 0.5 MG/2.5 ML AMPUL.NEB NEB SCH ×4 (01:46→20:12)
[2020-05-08] MEDS: METOCLOPRAMIDE HCL 10 MG/2 ML VIAL IV SCH ×3 (04:52→21:34)
[2020-05-08] MEDS: MEROPENEM 1 G in IV NS 0.9% 100 ML IV SCH ×3 (04:52→21:34)
[2020-05-08] MEDS: GLUCERNA 1.2 1,000 ML BOTTLE NG PRN (04:59)
[2020-05-08 05:13] LABS: BASOPHILS % (AUTO) 0.4 % (0.0-2.0); EOSINOPHILS % (AUTO) 6.1 % (0.0-6.0); HEMATOCRIT 24 % (33-45); HEMOGLOBIN 7.4 g/dL (11.5-14.8); LYMPHOCYTES # (AUTO) 0.6 /CMM (0.8-4.8); LYMPHOCYTES % (AUTO) 11.4 % (20.0-44.0); MEAN CORPUSCULAR HGB CONC 31 g/dl (31.0-36.0); MEAN CORPUSCULAR VOLUME 89 fL (82-100); MONOCYTES # (AUTO) 0.6 /CMM (0.1-1.30); MONOCYTES % (AUTO) 10.3 % (2.0-12.0); NEUTROPHILS # (AUTO) 3.9 /CMM (1.8-8.9); NEUTROPHILS % (AUTO) 71.8 % (43.0-81.0); PLATELET COUNT (AUTO) 217 /CMM (150-450); RED BLOOD CELL COUNT(AUTO) 2.73 MIL/uL (4.0-5.2); WHITE BLOOD COUNT (AUTO) 5.4 K/uL (4.3-11.0)
[2020-05-08 05:25] LABS: CALCIUM, SERUM 6.5 mg/dL (8.5-10.1); CREATININE 0.7 mg/dL (0.6-1.3); MAGNESIUM 1.5 mg/dL (1.8-2.4); POTASSIUM 3.4 mmol/L (3.5-5.1)
--- NOTE | 2020-05-08 06:15 | NUR ---
NETWORK/TELECOM ENGINEER: RECEIVED GLUCOSE CRITICAL RESULT FROM LAB.=551. ACCUCHEK FOR 0600=99. OBTAINED MD ORDER FOR PERIPHERAL REDRAW. NGT FEEDING HELD AT 0500 FOR 130ML RESIDUAL. RECHECKED AT 0600 AND STILL 100ML. WILL CONTINUE TO HOLD AND WILL ENDORSE TO DAY SHIFT. NO OTHER SIGNIFICANT CHANA. CONTINUE ON VERSED AT 7MG/HR AND FENTANYL DRIP AT 3MCG/KG/MIN FOR SEDATION AND D5 1/2 NS AT 75ML/HR. ALL NEEDS MET.
[2020-05-08] MEDS: PANTOPRAZOLE 40 MG/PACK PACK NG SCH (08:44)
[2020-05-08] MEDS: VORICONAZOLE 200 MG TABLET GT SCH ×2 (08:44→21:34)
[2020-05-08] MEDS: NEOMY SULF/BACITRAC ZN/POLY 15 GM TUBE TP SCH ×2 (08:44→17:28)
[2020-05-08] MEDS: PROSOURCE / PROSTAT (PYXIS) 30 ML UDC NG SCH ×3 (08:51→17:28)
[2020-05-08] MEDS: Magnesium 1GM/D5W 100ML PREMIX 100 ML IV SCH ×2 (09:29→11:03)
[2020-05-08] MEDS ORDERED: POTASSIUM CHLORIDE 20 MEQ POWDER PACKET NG SCH (09:30)
[2020-05-08] MEDS: ENOXAPARIN SODIUM 40 MG/0.4 ML DISP.SYRIN SQ SCH (09:31)
[2020-05-08] MEDS: FENTANYL CITRAT IV 2,500 MCG in IV NS 0.9% 200 ML IV PRN (11:06)
[2020-05-08] MEDS: MIDAZOLAM HCL 100 MG in IV NS 0.9% 80 ML IV PRN (11:09)
[2020-05-08] MEDS: INSULIN REGULAR, HUMAN 100 UNIT/ML 3 ML VIAL SQ PRN ×2 (11:59→17:31)
--- NOTE | 2020-05-08 14:14 | NUR ---
RN NOTE 0715: Received patient with ETT to vent, tolerated settings. No respiratory distress noted at this time. ST 110's on the monitor. Roger cath intact, noted with clear yellow urine drained to BSD. Left NGT intact, 10mL residual, placed back on TF. Kept HOB elevated. DEMETRIUS PICC intact, on Versed 7 and Fentanyl 3(190 mcg). IVF infusing as ordered. 0820: DCd IVF as ordered. 1030: S/E by Dr. Quach, aware for the episode of high residuals at times, on Reglan already, may hold TF at times per MD. Aware for episode of high BG in am, will continue to monitor, next BS check at 1200. Made MD aware, HR 120's and per MD may not do sedation vacation for today. 1400: TF ongoing. No any significant changes noted at this time. Kept clean, warm and dry. Needs attended.
--- NOTE | 2020-05-08 20:16 | NUR ---
icu/library circulation department chief Received report from day nurse, see flowsheet for assessment and see iv spread sheet for iv's. skin issues are addressed on assessment. Pt turned and repositioned for comfort and care
[2020-05-08] MEDS: ACETAMINOPHEN 650 MG/20.3 ML UDC NG PRN (22:35)
[2020-05-09] VITALS (24 sets, daily range): BP systolic 102–143; BP diastolic 47–103
[2020-05-09] MEDS: FENTANYL CITRAT IV 2,500 MCG in IV NS 0.9% 200 ML IV PRN ×3 (00:12→22:20)
[2020-05-09] MEDS: MIDAZOLAM HCL 100 MG in IV NS 0.9% 80 ML IV PRN ×3 (00:13→22:57)
[2020-05-09] MEDS: ALBUTEROL FS 2.5 MG/0.5 ML VIAL.NEB NEB SCH ×4 (02:22→20:30)
[2020-05-09] MEDS: IPRATROPIUM NEB FS 0.5 MG/2.5 ML AMPUL.NEB NEB SCH ×4 (02:22→20:30)
[2020-05-09 04:35] LABS: BASOPHILS % (AUTO) 0.5 % (0.0-2.0); EOSINOPHILS % (AUTO) 5.5 % (0.0-6.0); HEMATOCRIT 25 % (33-45); HEMOGLOBIN 8.1 g/dL (11.5-14.8); LYMPHOCYTES # (AUTO) 0.8 /CMM (0.8-4.8); LYMPHOCYTES % (AUTO) 16.1 % (20.0-44.0); MEAN CORPUSCULAR HGB CONC 32 g/dl (31.0-36.0); MEAN CORPUSCULAR VOLUME 83 fL (82-100); MONOCYTES # (AUTO) 0.5 /CMM (0.1-1.30); NEUTROPHILS # (AUTO) 3.4 /CMM (1.8-8.9); NEUTROPHILS % (AUTO) 67.9 % (43.0-81.0); PLATELET COUNT (AUTO) 264 /CMM (150-450); RED BLOOD CELL COUNT(AUTO) 3.01 MIL/uL (4.0-5.2)
[2020-05-09 04:50] LABS: CALCIUM, SERUM 7.7 mg/dL (8.5-10.1); CREATININE 0.6 mg/dL (0.6-1.3); MAGNESIUM 1.7 mg/dL (1.8-2.4); PHOSPHORUS 2.4 mg/dL (2.5-4.9); POTASSIUM 4.4 mmol/L (3.5-5.1)
[2020-05-09] MEDS: METOCLOPRAMIDE HCL 10 MG/2 ML VIAL IV SCH ×3 (05:36→20:40)
[2020-05-09] MEDS: MEROPENEM 1 G in IV NS 0.9% 100 ML IV SCH ×3 (05:36→20:45)
[2020-05-09] MEDS: BLOOD SUGAR DIAGNOSTIC 1 EACH STRIP IN SCH ×4 (05:59→23:29)
--- NOTE | 2020-05-09 07:15 | NUR ---
RN INITIAL NOTES RECEIVED PT INTUBATED, ON VENT. NO RESPIRATORY DISTRESS NOTED. HOB ELEVATED. LEFT NGT IN PLACE, TUBE FEEDING ON. DEMETRIUS PICC IN PLACE. PT ON VERSED AND FENTANYL DRIP. HUGHES IN PLACE. NO HEMATURIA NOTED. WILL CLOSELY MONITOR
[2020-05-09] MEDS: VORICONAZOLE 200 MG TABLET GT SCH ×2 (08:29→20:41)
[2020-05-09] MEDS: PANTOPRAZOLE 40 MG/PACK PACK NG SCH (08:29)
[2020-05-09] MEDS: PROSOURCE / PROSTAT (PYXIS) 30 ML UDC NG SCH ×3 (08:29→17:46)
[2020-05-09] MEDS: NEOMY SULF/BACITRAC ZN/POLY 15 GM TUBE TP SCH ×2 (08:29→17:46)
[2020-05-09] MEDS ORDERED: FUROSEMIDE 20 MG/2 ML VIAL IV ONE (09:00)
[2020-05-09] MEDS: ENOXAPARIN SODIUM 40 MG/0.4 ML DISP.SYRIN SQ SCH (09:08)
[2020-05-09] MEDS: Magnesium 1GM/D5W 100ML PREMIX 100 ML IV SCH ×2 (10:28→11:33)
[2020-05-09] MEDS ORDERED: ALBUMIN 25% 12.5 GM/50 ML BOTTLE IV ONE ×3 (12:00)
[2020-05-09] MEDS ORDERED: NEUTRA PHOS 1 POWD.PACKET NG ONE (13:00)
[2020-05-09] MEDS: INSULIN REGULAR, HUMAN 100 UNIT/ML 3 ML VIAL SQ PRN (17:47)
--- NOTE | 2020-05-09 18:32 | NUR ---
RN CLOSING NOTES NO SIGNIFICANT CHANGE NOTED. PT STILL INTUBATED, ON VENT. REMAINS ON VERSED AND FENTANYL DRIP. TUBE FEEDING ON. KEPT CLEAN ADN DRY. REPOSITIONED Q2. WILL ENDORSE FOR CONTINUITY OF CARE
--- NOTE | 2020-05-09 19:00 | NUR ---
received patient orally intubated to the ventilator on AC mode,not in any acute distress ,breathing non labored.Sedated on Versed drip and Fentanyl drip. Patient DNR status.Generalized edema,slightly responds to deep pain, slight cough and gag when suctioned,no purposeful movement or even withdrawal of extremities.Feeing via OGT tolerating well.ASpiration Precaution implemented,comfort care done.
[2020-05-09] MEDS: INSULIN GLARGINE, 100 UNIT/ML CARTRIDGE SQ SCH (21:38)
--- NOTE | 2020-05-09 21:40 | NUR ---
Lantus dose held ( 20 units) FS=84
[2020-05-10] VITALS (24 sets, daily range): BP systolic 120–162; BP diastolic 70–120
[2020-05-10] MEDS: IPRATROPIUM NEB FS 0.5 MG/2.5 ML AMPUL.NEB NEB SCH ×5 (02:45→20:56)
[2020-05-10] MEDS: ALBUTEROL FS 2.5 MG/0.5 ML VIAL.NEB NEB SCH ×5 (02:45→20:56)
[2020-05-10] MEDS: GLUCERNA 1.2 1,000 ML BOTTLE NG PRN (02:52)
--- NOTE | 2020-05-10 04:00 | NUR ---
NO change in status,still on Versed and Fentanyl drip.
[2020-05-10] MEDS: METOCLOPRAMIDE HCL 10 MG/2 ML VIAL IV SCH ×3 (04:19→20:27)
[2020-05-10] MEDS: MEROPENEM 1 G in IV NS 0.9% 100 ML IV SCH ×3 (04:22→21:07)
[2020-05-10 05:09] LABS: CALCIUM, SERUM 7.7 mg/dL (8.5-10.1); CREATININE 0.5 mg/dL (0.6-1.3); MAGNESIUM 1.7 mg/dL (1.8-2.4); PHOSPHORUS 3.4 mg/dL (2.5-4.9); POTASSIUM 3.9 mmol/L (3.5-5.1)
--- NOTE | 2020-05-10 05:29 | NUR ---
RT NOTE Pt rec'd orally intubated via ETT 7.0 secured @ 22cm at the lipline. Pt on [facility] vent on AC mode settings as charted. Pt sx'd for thick mod amt of rosario secretions. Alarms are set and audible. Ambu bag bedside. Vent plugged into red outlet. Will continue to monitor closely. Addendum: 05/10/20 at 0530 by SHANA WINTERS RT Amended: Links added.
[2020-05-10] MEDS: BLOOD SUGAR DIAGNOSTIC 1 EACH STRIP IN SCH ×3 (06:03→18:09)
[2020-05-10] MEDS: MIDAZOLAM HCL 100 MG in IV NS 0.9% 80 ML IV PRN (08:22)
[2020-05-10] MEDS: FENTANYL CITRAT IV 2,500 MCG in IV NS 0.9% 200 ML IV PRN (08:23)
[2020-05-10] MEDS: PROSOURCE / PROSTAT (PYXIS) 30 ML UDC NG SCH ×3 (09:12→17:31)
[2020-05-10] MEDS: VORICONAZOLE 200 MG TABLET GT SCH ×2 (09:12→20:27)
[2020-05-10] MEDS: PANTOPRAZOLE 40 MG/PACK PACK NG SCH (09:12)
[2020-05-10] MEDS: NEOMY SULF/BACITRAC ZN/POLY 15 GM TUBE TP SCH ×2 (09:13→17:31)
[2020-05-10] MEDS: ENOXAPARIN SODIUM 40 MG/0.4 ML DISP.SYRIN SQ SCH (09:14)
[2020-05-10] MEDS: Magnesium 1GM/D5W 100ML PREMIX 100 ML IV SCH ×2 (10:20→11:15)
[2020-05-10] MEDS: INSULIN REGULAR, HUMAN 100 UNIT/ML 3 ML VIAL SQ PRN (12:23)
[2020-05-10 13:52] LABS: ABG BASE EXCESS 11.3 mmol/L; ABG OXYGEN SATURATION 91.1 % (92.0-98.5); ABG PCO2 52.8 mmHg (35.0-45.0); ABG PH 7.457 (7.350-7.450); ABG PO2 62.2 mmHg (75.0-100.0); AaDO2 162.3 mmHg; COHb 1.9 % (0.5-1.5); MetHb 0.3 % (0.0-1.5); O2Hb 89.1 % (94.0-97.0); PEEP,BG 5 cm H2O; SITE, ABG Left Radial; VT, ABG 400 mL
--- NOTE | 2020-05-10 19:30 | NUR ---
RN NOTES RECEIVED PATIENT IN BED ORALLY INTUBATED TO THE VENTILATOR ON AC MODE NOT IN ANY ACUTE DISTRESS. BREATHING NON LABORED OFF SEDATION SINCE THIS MORNING TOLERATING WELL. TELE MONITOR SHOWS ST IN 113. DEMETRIUS MIDLINE CLEAN AND DRY FLUSHES WELL. LT NGT GLUCERNA IS RUNNING AT 35ML /HR TOLERATING WELL NOTED WITH 10ML RESIDUAL. F/C INTACT DRAINING WELL VIA GRAVITY. ALL SAFETY MEASURES IN PLACE, CALL LIGHT WITHIN REACH. WILL CONT TO MONITOR FOR CHANA.
[2020-05-10] MEDS: INSULIN GLARGINE, 100 UNIT/ML CARTRIDGE SQ SCH (22:20)
[2020-05-11] VITALS (20 sets, daily range): BP systolic 141–162; BP diastolic 80–103
[2020-05-11] MEDS: BLOOD SUGAR DIAGNOSTIC 1 EACH STRIP IN SCH ×4 (00:45→18:18)
[2020-05-11] MEDS: ALBUTEROL FS 2.5 MG/0.5 ML VIAL.NEB NEB SCH ×4 (02:10→20:03)
[2020-05-11] MEDS: IPRATROPIUM NEB FS 0.5 MG/2.5 ML AMPUL.NEB NEB SCH ×4 (02:10→20:03)
[2020-05-11 05:00] LABS: BASOPHILS % (AUTO) 0.3 % (0.0-2.0); EOSINOPHILS % (AUTO) 4.8 % (0.0-6.0); HEMATOCRIT 26 % (33-45); HEMOGLOBIN 8.4 g/dL (11.5-14.8); LYMPHOCYTES # (AUTO) 0.6 /CMM (0.8-4.8); LYMPHOCYTES % (AUTO) 8.7 % (20.0-44.0); MEAN CORPUSCULAR HGB CONC 33 g/dl (31.0-36.0); MEAN CORPUSCULAR VOLUME 83 fL (82-100); MONOCYTES # (AUTO) 0.6 /CMM (0.1-1.30); MONOCYTES % (AUTO) 8.2 % (2.0-12.0); NEUTROPHILS # (AUTO) 5.6 /CMM (1.8-8.9); PLATELET COUNT (AUTO) 283 /CMM (150-450); RED BLOOD CELL COUNT(AUTO) 3.09 MIL/uL (4.0-5.2); WHITE BLOOD COUNT (AUTO) 7.2 K/uL (4.3-11.0)
[2020-05-11 05:03] LABS: CALCIUM, SERUM 7.7 mg/dL (8.5-10.1); CREATININE 0.6 mg/dL (0.6-1.3); PHOSPHORUS 2.7 mg/dL (2.5-4.9); POTASSIUM 3.7 mmol/L (3.5-5.1)
[2020-05-11] MEDS: METOCLOPRAMIDE HCL 10 MG/2 ML VIAL IV SCH ×3 (05:10→20:48)
[2020-05-11] MEDS: MEROPENEM 1 G in IV NS 0.9% 100 ML IV SCH ×3 (05:10→20:51)
[2020-05-11] MEDS: PANTOPRAZOLE 40 MG/PACK PACK NG SCH (09:46)
[2020-05-11] MEDS: VORICONAZOLE 200 MG TABLET GT SCH ×2 (09:46→20:48)
[2020-05-11] MEDS: ENOXAPARIN SODIUM 40 MG/0.4 ML DISP.SYRIN SQ SCH (09:47)
[2020-05-11] MEDS: PROSOURCE / PROSTAT (PYXIS) 30 ML UDC NG SCH ×3 (09:47→16:51)
[2020-05-11] MEDS: NEOMY SULF/BACITRAC ZN/POLY 15 GM TUBE TP SCH ×2 (09:51→16:52)
[2020-05-11] MEDS: GLUCERNA 1.2 1,000 ML BOTTLE NG PRN (13:09)
--- NOTE | 2020-05-11 16:00 | NUR ---
RN/ICU-RECEIVED PT. W/ EYES CLOSED, NON-INTERACTIVE, NO CRUZ, ON THE VENT PER ETT, ON AC MODE, FIO2-40%, SATS.-95%, EKG ST W/ HR-112. BP-157/81. AFEBRILE. PT. IS A FULL CODE. NO S/S OF PAIN OR DISCOMFORT. Addendum: 05/11/20 at 1627 by BRYCE AQUINO RN RN/ICU-PT. IS A DO NOT RESUSCITATE STATUS.
[2020-05-11] MEDS: IV NS 0.9% 250 ML IV PRN (17:06)
[2020-05-11] MEDS: INSULIN GLARGINE, 100 UNIT/ML CARTRIDGE SQ SCH (22:33)
[2020-05-12] VITALS (24 sets, daily range): BP systolic 144–170; BP diastolic 74–105
[2020-05-12] MEDS: INSULIN REGULAR, HUMAN 100 UNIT/ML 3 ML VIAL SQ PRN ×3 (00:37→17:57)
[2020-05-12] MEDS: BLOOD SUGAR DIAGNOSTIC 1 EACH STRIP IN SCH ×4 (00:38→17:22)
[2020-05-12] MEDS: ALBUTEROL FS 2.5 MG/0.5 ML VIAL.NEB NEB SCH ×4 (02:23→20:00)
[2020-05-12] MEDS: IPRATROPIUM NEB FS 0.5 MG/2.5 ML AMPUL.NEB NEB SCH ×4 (02:23→20:00)
[2020-05-12] MEDS: METOCLOPRAMIDE HCL 10 MG/2 ML VIAL IV SCH ×3 (04:09→19:48)
[2020-05-12 04:33] LABS: BASOPHILS % (AUTO) 0.5 % (0.0-2.0); EOSINOPHILS % (AUTO) 1.6 % (0.0-6.0); HEMATOCRIT 30 % (33-45); HEMOGLOBIN 9.7 g/dL (11.5-14.8); LYMPHOCYTES # (AUTO) 0.8 /CMM (0.8-4.8); LYMPHOCYTES % (AUTO) 7.9 % (20.0-44.0); MEAN CORPUSCULAR HGB CONC 32 g/dl (31.0-36.0); MEAN CORPUSCULAR VOLUME 83 fL (82-100); MONOCYTES # (AUTO) 0.8 /CMM (0.1-1.30); MONOCYTES % (AUTO) 7.8 % (2.0-12.0); NEUTROPHILS # (AUTO) 8.4 /CMM (1.8-8.9); NEUTROPHILS % (AUTO) 82.2 % (43.0-81.0); PLATELET COUNT (AUTO) 399 /CMM (150-450); RED BLOOD CELL COUNT(AUTO) 3.63 MIL/uL (4.0-5.2); WHITE BLOOD COUNT (AUTO) 10.3 K/uL (4.3-11.0)
[2020-05-12 04:54] LABS: CALCIUM, SERUM 7.4 mg/dL (8.5-10.1); CREATININE 0.4 mg/dL (0.6-1.3); MAGNESIUM 1.6 mg/dL (1.8-2.4); PHOSPHORUS 2.6 mg/dL (2.5-4.9); POTASSIUM 3.3 mmol/L (3.5-5.1)
[2020-05-12] MEDS: MEROPENEM 1 G in IV NS 0.9% 100 ML IV SCH ×3 (05:03→21:11)
--- NOTE | 2020-05-12 06:00 | NUR ---
ACCU CHECK DONE BS 133, 2 UNITS OF REGULAR INSULIN GIVEN ORDERED.
--- NOTE | 2020-05-12 07:17 | NUR ---
RN NOTES NO CHANGES NOTED DURING SHIFT, CONTINUES WITH VENTILATOR ON AC MODE NOT IN ANY ACUTE DISTRESS. BREATHING NON LABORED OFF SEDATION SINCE THIS MORNING TOLERATING WELL. TELE MONITOR SHOWS ST IN 109. DEMETRIUS MIDLINE CLEAN AND DRY FLUSHES WELL. LT NGT GLUCERNA IS RUNNING AT 35ML /HR TOLERATING WELL NOTED WITH 5ML RESIDUAL. F/C INTACT DRAINING WELL VIA GRAVITY. ALL SAFETY MEASURES IN PLACE, CALL LIGHT WITHIN REACH. ENDORSE TO AM NURSE FOR CHANA.
--- NOTE | 2020-05-12 07:30 | NUR ---
SLIVER CHOPPER AM NOTES RECEIVED PATIENT IN BED ORALLY INTUBATED TO MECHANICAL VENTILATOR ON AC MODE NOT IN ANY ACUTE DISTRESS. BREATHING NON LABORED OFF SEDATION SINCE THIS MORNING TOLERATING WELL. TELE MONITOR SHOWS SR HR 99. DEMETRIUS PICC LINE AND MIDLINE CLEAN AND DRY FLUSHES WELL. LT NGT GLUCERNA IS RUNNING AT 35ML /HR TOLERATING WELL NOTED WITH 10ML RESIDUAL. F/C INTACT DRAINING WELL VIA GRAVITY. ALL SAFETY MEASURES IN PLACE, CALL LIGHT WITHIN REACH. WILL CONT TO MONITOR FOR CHANA.
--- NOTE | 2020-05-12 09:00 | NUR ---
RN NOTES PATIENT OFF SEDATION AND RESTRAINTS. PER DR. DUENAS ITS OKAY
--- NOTE | 2020-05-12 09:00 | NUR ---
HHN DEFERRED RT BUSY
[2020-05-12] MEDS: PROSOURCE / PROSTAT (PYXIS) 30 ML UDC NG SCH ×3 (09:30→17:26)
[2020-05-12] MEDS: VORICONAZOLE 200 MG TABLET GT SCH ×2 (09:30→21:11)
[2020-05-12] MEDS: PANTOPRAZOLE 40 MG/PACK PACK NG SCH (09:30)
--- NOTE | 2020-05-12 09:30 | NUR ---
RN NOTES DUE MEDS GIVEN
[2020-05-12] MEDS: NEOMY SULF/BACITRAC ZN/POLY 15 GM TUBE TP SCH ×2 (09:31→17:26)
[2020-05-12] MEDS: ENOXAPARIN SODIUM 40 MG/0.4 ML DISP.SYRIN SQ SCH (10:05)
[2020-05-12] MEDS ORDERED: POTASSIUM CHLORIDE 20 MEQ POWDER PACKET GT ONE (11:00)
[2020-05-12] MEDS: GLUCERNA 1.2 1,000 ML BOTTLE NG PRN (11:31)
[2020-05-12] MEDS: IV NS 0.9% 250 ML IV PRN (11:34)
[2020-05-12] MEDS: Magnesium 1GM/D5W 100ML PREMIX 100 ML IV SCH ×2 (11:35→12:32)
--- NOTE | 2020-05-12 19:00 | NUR ---
RECEIVED PATIENT ORALLY INTUBATED ON AC MODE,BREATHING LABORED WITH DEEP INSPIRATORY EFFORT,SATURATING WELL IN THE 90'S. RESPONDS TO PAIN,GRIMACES,SLIGHTLY OPENS EYES. GROSSLY EDEMATOUS ALL OVER,NO MOVEMENT OF ANY EXTREMITIES NOTED. FEEDING VIA NGT,TOLERATING WELL, ASPIRATION PRECAUTION IMPLEMENTED.COMFORT CARE DONE. PATIENT WITH DNR STATUS.
--- NOTE | 2020-05-12 19:30 | NUR ---
RN CLOSING NOTES NO CHANGES NOTED DURING SHIFT, CONTINUES WITH VENTILATOR ON AC MODE NOT IN ANY ACUTE DISTRESS. BREATHING NON LABORED REMAINS OFF SEDATION. LT NGT GLUCERNA IS RUNNING AT 35ML /HR TOLERATING WELL NOTED WITH 5ML RESIDUAL. F/C INTACT DRAINING WELL VIA GRAVITY. TOTAL 1180 OUTPUT. ALL SAFETY MEASURES IN PLACE, CALL LIGHT WITHIN REACH. ENDORSE TO PM NURSE FOR CHANA.
[2020-05-12] MEDS: INSULIN GLARGINE, 100 UNIT/ML CARTRIDGE SQ SCH (21:32)
[2020-05-13] VITALS (24 sets, daily range): BP systolic 150–178; BP diastolic 77–117
--- NOTE | 2020-05-13 | NUR ---
NO CHANGE IN STATUS,LETHARGIC RESPONDS TO PAIN,OPENS EYES BUT DOES NOT TRACK,+ COUGH AND GAG.sLIGHTLY WITHDRAWS LEGS TO PAIN.
[2020-05-13] MEDS: BLOOD SUGAR DIAGNOSTIC 1 EACH STRIP IN SCH ×5 (00:40→22:25)
[2020-05-13] MEDS: INSULIN REGULAR, HUMAN 100 UNIT/ML 3 ML VIAL SQ PRN ×2 (01:01→22:32)
[2020-05-13] MEDS: IPRATROPIUM NEB FS 0.5 MG/2.5 ML AMPUL.NEB NEB SCH ×4 (01:43→20:11)
[2020-05-13] MEDS: ALBUTEROL FS 2.5 MG/0.5 ML VIAL.NEB NEB SCH ×4 (01:43→20:11)
--- NOTE | 2020-05-13 04:00 | NUR ---
OBSERVED TO BE MORE TACYPNEIC WITH MORE LABORED BREATHING ALTHOUGH SATURATING WELL IN THE 90'S, WILL OBSERVE.
[2020-05-13] MEDS: METOCLOPRAMIDE HCL 10 MG/2 ML VIAL IV SCH ×3 (04:10→20:01)
[2020-05-13] MEDS: MEROPENEM 1 G in IV NS 0.9% 100 ML IV SCH ×2 (04:31→13:25)
[2020-05-13 04:40] LABS: BASOPHILS # (AUTO) 0.1 /CMM (0.0-0.2); BASOPHILS % (AUTO) 0.4 % (0.0-2.0); EOSINOPHILS % (AUTO) 1.2 % (0.0-6.0); HEMATOCRIT 32 % (33-45); HEMOGLOBIN 10.2 g/dL (11.5-14.8); LYMPHOCYTES # (AUTO) 0.9 /CMM (0.8-4.8); LYMPHOCYTES % (AUTO) 7.8 % (20.0-44.0); MEAN CORPUSCULAR HGB CONC 32 g/dl (31.0-36.0); MEAN CORPUSCULAR VOLUME 83 fL (82-100); NEUTROPHILS # (AUTO) 9.8 /CMM (1.8-8.9); NEUTROPHILS % (AUTO) 82.6 % (43.0-81.0); PLATELET COUNT (AUTO) 459 /CMM (150-450); RED BLOOD CELL COUNT(AUTO) 3.86 MIL/uL (4.0-5.2); WHITE BLOOD COUNT (AUTO) 11.9 K/uL (4.3-11.0)
[2020-05-13 04:51] LABS: CALCIUM, SERUM 7.6 mg/dL (8.5-10.1); CREATININE 0.5 mg/dL (0.6-1.3); MAGNESIUM 1.8 mg/dL (1.8-2.4); PHOSPHORUS 2.7 mg/dL (2.5-4.9); POTASSIUM 3.2 mmol/L (3.5-5.1)
[2020-05-13] MEDS: LORAZEPAM INJ 2 MG/ML VIAL IV PRN ×2 (04:55→19:55)
--- NOTE | 2020-05-13 08:00 | NUR ---
received pt from shift supervisor rn, very lethargic, responds to pain stimuli, SR, ST, intubated, sat well, f/c good output, NG to feeding, tolerates well, v/s stable, no pain, pt turned and repositioned.
[2020-05-13] MEDS: PANTOPRAZOLE 40 MG/PACK PACK NG SCH (09:51)
[2020-05-13] MEDS: VORICONAZOLE 200 MG TABLET GT SCH ×2 (09:51→20:02)
[2020-05-13] MEDS: PROSOURCE / PROSTAT (PYXIS) 30 ML UDC NG SCH ×3 (09:52→17:51)
[2020-05-13] MEDS: NEOMY SULF/BACITRAC ZN/POLY 15 GM TUBE TP SCH ×2 (09:52→17:52)
[2020-05-13] MEDS: ENOXAPARIN SODIUM 40 MG/0.4 ML DISP.SYRIN SQ SCH (09:53)
[2020-05-13] MEDS: POTASSIUM CHLORIDE 20 MEQ POWDER PACKET GT SCH (11:42)
--- NOTE | 2020-05-13 17:05 | NUR ---
pt is resting in the bed, lethargic, does not follow commands, SR, sat well, tolerates feeding, good urine output, v/s stable, no pain, pt cleaned, changed and repositioned.
[2020-05-13] MEDS: INSULIN GLARGINE, 100 UNIT/ML CARTRIDGE SQ SCH (22:32)
[2020-05-14] VITALS (24 sets, daily range): BP systolic 134–160; BP diastolic 73–93
[2020-05-14] MEDS: LORAZEPAM INJ 2 MG/ML VIAL IV PRN (00:49)
[2020-05-14] MEDS: HYDROCODONE/APAP 5/325MG TABLET PO PRN ×2 (00:50→09:51)
[2020-05-14] MEDS: IPRATROPIUM NEB FS 0.5 MG/2.5 ML AMPUL.NEB NEB SCH ×4 (02:04→20:04)
[2020-05-14] MEDS: ALBUTEROL FS 2.5 MG/0.5 ML VIAL.NEB NEB SCH ×4 (02:04→20:04)
[2020-05-14] MEDS: METOCLOPRAMIDE HCL 10 MG/2 ML VIAL IV SCH ×3 (04:50→20:36)
[2020-05-14 05:40] LABS: BASOPHILS % (AUTO) 0.1 % (0.0-2.0); EOSINOPHILS % (AUTO) 0.1 % (0.0-6.0); HEMATOCRIT 30 % (33-45); HEMOGLOBIN 9.7 g/dL (11.5-14.8); LYMPHOCYTES # (AUTO) 0.5 /CMM (0.8-4.8); LYMPHOCYTES % (AUTO) 8.1 % (20.0-44.0); MEAN CORPUSCULAR HGB CONC 33 g/dl (31.0-36.0); MEAN CORPUSCULAR VOLUME 82 fL (82-100); MONOCYTES # (AUTO) 0.2 /CMM (0.1-1.30); MONOCYTES % (AUTO) 2.9 % (2.0-12.0); NEUTROPHILS # (AUTO) 5.4 /CMM (1.8-8.9); NEUTROPHILS % (AUTO) 88.8 % (43.0-81.0); PLATELET COUNT (AUTO) 449 /CMM (150-450); RED BLOOD CELL COUNT(AUTO) 3.66 MIL/uL (4.0-5.2); WHITE BLOOD COUNT (AUTO) 6.1 K/uL (4.3-11.0)
[2020-05-14] MEDS: BLOOD SUGAR DIAGNOSTIC 1 EACH STRIP IN SCH ×4 (05:47→23:16)
[2020-05-14] MEDS: ACETAMINOPHEN 650 MG/20.3 ML UDC NG PRN (05:47)
[2020-05-14 05:56] LABS: CALCIUM, SERUM 7.7 mg/dL (8.5-10.1); CREATININE 0.5 mg/dL (0.6-1.3); MAGNESIUM 1.8 mg/dL (1.8-2.4); PHOSPHORUS 3.4 mg/dL (2.5-4.9); POTASSIUM 3.6 mmol/L (3.5-5.1)
[2020-05-14] MEDS: INSULIN REGULAR, HUMAN 100 UNIT/ML 3 ML VIAL SQ PRN ×3 (06:00→23:16)
--- NOTE | 2020-05-14 07:00 | NUR ---
received pt from slab installer, very lethargic, responds to pain stimuli, SR, ST, intubated, saturation well, f/c good output, NG to feeding, tolerates well, v/s stable, no pain, pt turned and repositioned. no signs of distress. all tubing connected. all alarms checked. all hospital policy safety precautions implemented.
[2020-05-14] MEDS: PROSOURCE / PROSTAT (PYXIS) 30 ML UDC NG SCH ×3 (08:35→17:22)
[2020-05-14] MEDS: PANTOPRAZOLE 40 MG/PACK PACK NG SCH (08:35)
[2020-05-14] MEDS: VORICONAZOLE 200 MG TABLET GT SCH ×2 (08:36→20:36)
[2020-05-14] MEDS: NEOMY SULF/BACITRAC ZN/POLY 15 GM TUBE TP SCH ×2 (08:36→17:22)
[2020-05-14] MEDS: ENOXAPARIN SODIUM 40 MG/0.4 ML DISP.SYRIN SQ SCH (09:40)
[2020-05-14] MEDS: GLUCERNA 1.2 1,000 ML BOTTLE NG PRN (17:22)
--- NOTE | 2020-05-14 18:21 | NUR ---
PT OBTUNDED. UNABLE TO FOLLOW COMMANDS. OPENS EYES SPONTANEOUSLY. VENT SETTINGS ORDERED AND PT TOLERATING WELL W NO SIGNS OF RESPIRATORY DISTRESS. SKIN WARM AND FLUSHED. ST ON TELE. VS WNL. L NARE NGT INTACT AND AUSCULATED AND NO RESIDUAL. WOUND CARE ORDERED IMPLEMENTED. DEMETRIUS FLUSHED INTACT AND DRESSING DRY INTACT. ALL ORDERS IMPLEMENTED AND REPORTED TO MD NEEDED. HOB ELEVATED AT ALL TIMES. RAILS UP X2, ALL TUBING INTACT, ALL ALARMS CHECKED, BED LOW, LOCKED, ALL HOSPITAL POLICY SAFETY PRECAUTIONS IMPLEMENTED. TURNED Q2H AND ELEVATED EXTREMITIES. WILL ENDORSE TO PM RN.
[2020-05-14] MEDS: INSULIN GLARGINE, 100 UNIT/ML CARTRIDGE SQ SCH (23:14)
[2020-05-15] VITALS (13 sets, daily range): BP systolic 142–174; BP diastolic 75–105
[2020-05-15] MEDS: ALBUTEROL FS 2.5 MG/0.5 ML VIAL.NEB NEB SCH ×4 (01:44→20:30)
[2020-05-15] MEDS: IPRATROPIUM NEB FS 0.5 MG/2.5 ML AMPUL.NEB NEB SCH ×4 (01:44→20:30)
[2020-05-15 04:32] LABS: BASOPHILS # (AUTO) 0.1 /CMM (0.0-0.2); BASOPHILS % (AUTO) 0.7 % (0.0-2.0); EOSINOPHILS % (AUTO) 0.5 % (0.0-6.0); HEMATOCRIT 29 % (33-45); HEMOGLOBIN 9.4 g/dL (11.5-14.8); LYMPHOCYTES # (AUTO) 1.2 /CMM (0.8-4.8); LYMPHOCYTES % (AUTO) 10.7 % (20.0-44.0); MEAN CORPUSCULAR HGB CONC 32 g/dl (31.0-36.0); MEAN CORPUSCULAR VOLUME 82 fL (82-100); MONOCYTES # (AUTO) 1.1 /CMM (0.1-1.30); MONOCYTES % (AUTO) 9.8 % (2.0-12.0); NEUTROPHILS # (AUTO) 9.1 /CMM (1.8-8.9); NEUTROPHILS % (AUTO) 78.3 % (43.0-81.0); PLATELET COUNT (AUTO) 468 /CMM (150-450); RED BLOOD CELL COUNT(AUTO) 3.53 MIL/uL (4.0-5.2); WHITE BLOOD COUNT (AUTO) 11.6 K/uL (4.3-11.0)
[2020-05-15 04:53] LABS: CALCIUM, SERUM 7.6 mg/dL (8.5-10.1); CREATININE 0.6 mg/dL (0.6-1.3); MAGNESIUM 1.6 mg/dL (1.8-2.4); PHOSPHORUS 2.6 mg/dL (2.5-4.9)
[2020-05-15 05:13] LABS: POTASSIUM 2.7 mmol/L (3.5-5.1)
[2020-05-15] MEDS: METOCLOPRAMIDE HCL 10 MG/2 ML VIAL IV SCH ×3 (05:39→23:33)
[2020-05-15] MEDS: BLOOD SUGAR DIAGNOSTIC 1 EACH STRIP IN SCH ×4 (05:40→23:58)
[2020-05-15] MEDS: DEXTROSE 50%-WATER 50 ML DISP.SYRIN IV PRN ×2 (05:43→06:34)
[2020-05-15] MEDS: POTASSIUM CL. PREMIX PERIPHER. 50 ML IV SCH ×5 (06:36→11:16)
--- NOTE | 2020-05-15 08:20 | NUR ---
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
[2020-05-15] MEDS: PROSOURCE / PROSTAT (PYXIS) 30 ML UDC NG SCH ×3 (08:48→17:06)
[2020-05-15] MEDS: NEOMY SULF/BACITRAC ZN/POLY 15 GM TUBE TP SCH ×2 (08:48→16:39)
[2020-05-15] MEDS: VORICONAZOLE 200 MG TABLET GT SCH ×2 (08:51→23:40)
[2020-05-15] MEDS: PANTOPRAZOLE 40 MG/PACK PACK NG SCH (08:51)
[2020-05-15] MEDS: ENOXAPARIN SODIUM 40 MG/0.4 ML DISP.SYRIN SQ SCH (08:53)
[2020-05-15] MEDS: Magnesium 1GM/D5W 100ML PREMIX 100 ML IV SCH ×2 (10:33→11:22)
--- NOTE | 2020-05-15 12:59 | NUR ---
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 Will continue to monitor patient.
--- NOTE | 2020-05-15 13:00 | NUR ---
pt transferred to 3rd floor, ACLS followed, v/s stable, no pain, report given to Anna.
[2020-05-15] MEDS ORDERED: hydrALAZINE HCL IV 20 MG VIAL IV PRN (16:30)
[2020-05-15] MEDS: hydrALAZINE HCL 10 MG TABLET NG PRN (17:06)
--- NOTE | 2020-05-15 19:33 | NUR ---
OPTICAL GLASS SILVERER CLOSING NOTES PATIENT REMAINS lethargic, opens eyes, does not follow commands, ST, intubated, sat well, NG to feeding tolerates well; NO RESIDUAL PRESENT, f/c with daily output of 1250 mls, v/s stable, no pain, pt turned and repositioned. RT coming to check on patient often. Will endorse to slot shift supervisor nurse.
--- NOTE | 2020-05-15 20:30 | NUR ---
RT pt received on mechanical vent on current settings. orally intubated. vent plugged in to red outlet. ambu bag at [facility]. thin secretions suctioned. no resp distress. no sob. will continue to monitor
[2020-05-15] MEDS ORDERED: VORICONAZOLE 200 MG TABLET ONE (21:44)
[2020-05-15] MEDS: LORAZEPAM INJ 2 MG/ML VIAL IV PRN (23:30)
[2020-05-15] MEDS: INSULIN REGULAR, HUMAN 100 UNIT/ML 3 ML VIAL SQ PRN (23:56)
[2020-05-15] MEDS: INSULIN GLARGINE, 100 UNIT/ML CARTRIDGE SQ SCH (23:58)
[2020-05-16 00:08] VITALS: BP 146/65
[2020-05-16] MEDS: IPRATROPIUM NEB FS 0.5 MG/2.5 ML AMPUL.NEB NEB SCH ×4 (03:34→20:32)
[2020-05-16] MEDS: ALBUTEROL FS 2.5 MG/0.5 ML VIAL.NEB NEB SCH ×4 (03:34→20:32)
[2020-05-16] MEDS: METOCLOPRAMIDE HCL 10 MG/2 ML VIAL IV SCH ×3 (04:00→19:41)
--- NOTE | 2020-05-16 08:39 | NUR ---
RN notes In bed resting comfortably with no distress noted. Breathing even and unlabored. Vent setting well tolerated. No sedation, patient barely opens eyes. No physical manifestation of pain or discomfort. On DNR status, Feeding glucerna 1.2 at 35mls/hr. No residual. Kept clean and dry. Will endorse to next shift for continuity of care.
[2020-05-16] MEDS: INSULIN REGULAR, HUMAN 100 UNIT/ML 3 ML VIAL SQ PRN ×2 (08:53→19:23)
[2020-05-16] MEDS: BLOOD SUGAR DIAGNOSTIC 1 EACH STRIP IN SCH ×3 (08:54→18:00)
[2020-05-16 08:56] LABS: BASOPHILS % (AUTO) 0.3 % (0.0-2.0); EOSINOPHILS % (AUTO) 0.8 % (0.0-6.0); HEMATOCRIT 30 % (33-45); HEMOGLOBIN 9.7 g/dL (11.5-14.8); LYMPHOCYTES # (AUTO) 0.9 /CMM (0.8-4.8); LYMPHOCYTES % (AUTO) 6.3 % (20.0-44.0); MEAN CORPUSCULAR HGB CONC 32 g/dl (31.0-36.0); MEAN CORPUSCULAR VOLUME 82 fL (82-100); MONOCYTES # (AUTO) 1.4 /CMM (0.1-1.30); MONOCYTES % (AUTO) 9.9 % (2.0-12.0); NEUTROPHILS # (AUTO) 11.9 /CMM (1.8-8.9); NEUTROPHILS % (AUTO) 82.7 % (43.0-81.0); PLATELET COUNT (AUTO) 441 /CMM (150-450); RED BLOOD CELL COUNT(AUTO) 3.66 MIL/uL (4.0-5.2); WHITE BLOOD COUNT (AUTO) 14.4 K/uL (4.3-11.0)
[2020-05-16] MEDS: NEOMY SULF/BACITRAC ZN/POLY 15 GM TUBE TP SCH ×2 (09:00→17:29)
--- NOTE | 2020-05-16 10:00 | NUR ---
RECEIVED REPORT FROM NIGHT ICU NURSE FOR CONTINUITY OF CARE.
[2020-05-16 10:18] LABS: CREATININE 0.5 mg/dL (0.6-1.3); POTASSIUM 3.3 mmol/L (3.5-5.1)
[2020-05-16] MEDS: VORICONAZOLE 200 MG TABLET GT SCH ×2 (10:36→20:29)
[2020-05-16] MEDS: PANTOPRAZOLE 40 MG/PACK PACK NG SCH (10:36)
[2020-05-16] MEDS: ENOXAPARIN SODIUM 40 MG/0.4 ML DISP.SYRIN SQ SCH (10:39)
[2020-05-16] MEDS: PROSOURCE / PROSTAT (PYXIS) 30 ML UDC NG SCH ×3 (10:50→17:29)
[2020-05-16 12:00] VITALS: BP 165/94
--- NOTE | 2020-05-16 12:00 | NUR ---
PATIENT BP 222/109 P 120 GAVE APRESOLINE PRN SBP >160. WILL CONTINUE TO MONITOR.
[2020-05-16] MEDS ORDERED: hydrALAZINE HCL IV 20 MG VIAL IV PRN (13:00)
--- NOTE | 2020-05-16 13:00 | NUR ---
PATIENT BP CURRENTLY 165/99 P 112. WILL CONTINUE TO MONITOR.
[2020-05-16] MEDS: hydrALAZINE HCL 10 MG TABLET NG PRN (13:09)
[2020-05-16] MEDS ORDERED: LABETALOL 20 MG/4 ML VIAL IV PRN (14:00)
[2020-05-16] MEDS ORDERED: LABETALOL HCL IV 100MG VIAL IV PRN (14:30)
[2020-05-16] MEDS ORDERED: POTASSIUM CHLORIDE 20 MEQ POWDER PACKET GT ONE (15:00)
--- NOTE | 2020-05-16 16:00 | NUR ---
GAVE REPORT TO SUPRIYA GARCIA FOR CONTINUITY OF CARE.
[2020-05-16 18:00] VITALS: BP 158/114
--- NOTE | 2020-05-16 19:08 | NUR ---
RN NOTES PATIENT IN BED RESTING COMFORTABLY IN MODERATE HIGH BACK REST. DNR STATUS, OBTUNDED. ON A VENT TOLERATING CURRENT SETTING WITH NO SIGN OF DISTRESS NOTED. ON NGT FEEDING GLUCERNA @35 CC/HR. SAFETY MEASURES IN PLACE, ENDORSED TO BRUSH WORKER NURSE FOR CHANA.
--- NOTE | 2020-05-16 19:20 | NUR ---
RN OPENING NOTE RECEIVED PATIENT IN BED RESTING OBTUNDED CONFUSED NONVERBAL,ORALLY INTUBATED ON MECHANICAL VENT,O2:91% ON NGT ON GLUCERNA 1.2 35CC/HR PLACEMENT CHECKED IN PLACE NO RESIDUAL,IV SITE IS ON RIGHT UPPER ARM PICC LINE PATENT INTACT,ON HUGHES CATHETER URINE DRAINING YELLOW AND CLEAR,SAFETY MEASURE IMPLEMENTED,HEAD OF BED ELEVATED BED IS IN LOW POSITON AND LOCKED CONTINUE TO MONITOR.
[2020-05-16 20:00] VITALS: BP 150/110
[2020-05-16] MEDS: INSULIN GLARGINE, 100 UNIT/ML CARTRIDGE SQ SCH (22:27)
[2020-05-16 23:00] VITALS: BP 146/102
[2020-05-17] VITALS (22 sets, daily range): BP systolic 120–170; BP diastolic 75–102
[2020-05-17] MEDS: INSULIN REGULAR, HUMAN 100 UNIT/ML 3 ML VIAL SQ PRN ×5 (00:05→23:07)
[2020-05-17] MEDS: ACETAMINOPHEN 650 MG/20.3 ML UDC NG PRN ×3 (01:15→17:07)
[2020-05-17] MEDS: IPRATROPIUM NEB FS 0.5 MG/2.5 ML AMPUL.NEB NEB SCH ×4 (01:24→19:35)
[2020-05-17] MEDS: ALBUTEROL FS 2.5 MG/0.5 ML VIAL.NEB NEB SCH ×4 (01:24→19:35)
[2020-05-17] MEDS: METOCLOPRAMIDE HCL 10 MG/2 ML VIAL IV SCH ×3 (04:11→22:43)
[2020-05-17] MEDS: BLOOD SUGAR DIAGNOSTIC 1 EACH STRIP IN SCH ×5 (05:38→23:05)
[2020-05-17] MEDS: HYDROCODONE/APAP 5/325MG TABLET PO PRN (05:51)
[2020-05-17 06:57] LABS: CREATININE 0.6 mg/dL (0.6-1.3); MAGNESIUM 1.9 mg/dL (1.8-2.4); PHOSPHORUS 2.9 mg/dL (2.5-4.9); POTASSIUM 4.2 mmol/L (3.5-5.1)
--- NOTE | 2020-05-17 07:35 | NUR ---
RN CLOSING NOTE PATIENT ALERT CONFUSED NO SOB NOT ACUTE DISTRESS NOTED ALL DUE MEDS GIVEN MD ORDERED KEPT CLEAN AND DRY ALL THE TIME,KEPT COMFORTABLE ALL NEEDS MET,ENDORSE NEXT COMING SHIFT FOR CONTINUATION OF CARE.
[2020-05-17 07:39] LABS: BASOPHILS # (AUTO) 0.1 /CMM (0.0-0.2); BASOPHILS % (AUTO) 0.4 % (0.0-2.0); HEMATOCRIT 28 % (33-45); HEMOGLOBIN 8.8 g/dL (11.5-14.8); LYMPHOCYTES # (AUTO) 0.8 /CMM (0.8-4.8); LYMPHOCYTES % (AUTO) 4.9 % (20.0-44.0); MEAN CORPUSCULAR HGB CONC 31 g/dl (31.0-36.0); MEAN CORPUSCULAR VOLUME 86 fL (82-100); MONOCYTES # (AUTO) 0.4 /CMM (0.1-1.30); MONOCYTES % (AUTO) 2.6 % (2.0-12.0); NEUTROPHILS # (AUTO) 14.5 /CMM (1.8-8.9); NEUTROPHILS % (AUTO) 92.1 % (43.0-81.0); PLATELET COUNT (AUTO) 309 /CMM (150-450); RED BLOOD CELL COUNT(AUTO) 3.29 MIL/uL (4.0-5.2); WHITE BLOOD COUNT (AUTO) 15.7 K/uL (4.3-11.0)
--- NOTE | 2020-05-17 08:00 | NUR ---
RN NOTES RECEIVED PATIENT IN BED RESTING NONVERBAL,ORALLY INTUBATED ON MECHANICAL VENT,O2:91% ON NGT ON GLUCERNA 1.2 35CC/HR PLACEMENT CHECKED IN PLACE NO RESIDUAL,IV SITE IS ON RIGHT UPPER ARM PICC LINE PATENT INTACT,ON HUGHES CATHETER URINE DRAINING YELLOW AND CLEAR,SAFETY MEASURE IMPLEMENTED,HEAD OF BED ELEVATED BED IS IN LOW POSITON AND LOCKED CONTINUE TO MONITOR.
--- NOTE | 2020-05-17 08:00 | NUR ---
ICU/RN OPENING NOTE RECEIVED THE PATIENT IN BED. PATIENT IS ON VENT AND TOLERATES VENT SETTING WELL. GT FEEDING GLUCERNA 1.2 INFUSING 35ML/HR. ABDOMEN SOFT AND NON-DISTENDED. BED LOW AND LOCKED. SIDE RAILS UP X3. CALL LIGHT WITHIN REACH. WILL CONTINUE TO MONITOR.
[2020-05-17] MEDS ORDERED: ACETAMINOPHEN 325 MG TABLET ONE (08:38)
--- NOTE | 2020-05-17 08:39 | NUR ---
RN NOTES TYLENOL 325MG DUE AT 0839 WAS NOT ADMINISTERED BECAUSE TYLENOL 650 MG WAS GIVEN 15 MINUTES AGO.
[2020-05-17] MEDS: PANTOPRAZOLE 40 MG/PACK PACK NG SCH (09:39)
[2020-05-17] MEDS: ENOXAPARIN SODIUM 40 MG/0.4 ML DISP.SYRIN SQ SCH (09:40)
[2020-05-17] MEDS: PROSOURCE / PROSTAT (PYXIS) 30 ML UDC NG SCH ×3 (09:41→17:02)
[2020-05-17] MEDS: VORICONAZOLE 200 MG TABLET GT SCH ×2 (11:42→22:43)
[2020-05-17] MEDS: NEOMY SULF/BACITRAC ZN/POLY 15 GM TUBE TP SCH ×2 (11:42→17:02)
[2020-05-17] MEDS ORDERED: VANCOMYCIN 1 GM in IV D5W 250 ML IV SCH (14:00)
[2020-05-17] MEDS: CEFTRIAXONE 2 G in IV D5W 100 ML IV SCH (15:10)
--- NOTE | 2020-05-17 18:17 | NUR ---
ICU/RN CLOSING NOTE PATIENT IS ON VENT AND OBTUNDED. TOLERATED VENT SETTINGS. GT FEEDING GLUCERNA INFUSING AT 35ML/HR. ABDOMEN SOFT AND NON/DISTENDED. DEMETRIUS PICC LINE PATENT AND SALINE LOCKED. BED LOW AND LOCKED. SIDE RAILS UP X3. CALL LIGHT WITHIN REACH. WILL ENDORSE TO GOLF COURSE MANAGER.
[2020-05-17 18:35] LABS: ABG BASE EXCESS 7.1 mmol/L; ABG OXYGEN SATURATION 96.4 % (92.0-98.5); ABG PCO2 39.5 mmHg (35.0-45.0); ABG PH 7.508 (7.350-7.450); ABG PO2 95.8 mmHg (75.0-100.0); COHb 1.3 % (0.5-1.5); MetHb 0.3 % (0.0-1.5); O2Hb 94.9 % (94.0-97.0); SITE, ABG Right Radial
--- NOTE | 2020-05-17 19:41 | NUR ---
RN NOTE BROKER IN CHARGE ADI IS MADE AWARE OF ABG RESULT AND PER BROKER IN CHARGE NO NEW ORDERS.
--- NOTE | 2020-05-17 19:45 | NUR ---
CASKET LINER NOTE: PATIENT RESTING IN BED, NO ACUTE DISTRESS NOTED. BREATHING EVEN AND UNLABORED, NO SOB NOTED. VENT SETTINGS IN PLACE. HUGHES CATHETER IN PLACE, EMPTY AT THIS TIME. PICC LINE TO RIGHT UPPER ARM IN PLACE. NG TUBE TO LEFT NOSTRIL IN PLACE, INFUSING GLUCERNA AT 35ML/HR. HOB ELEVATED. BED LOCKED AND IN LOWEST POSITION, WILL CONTINUE TO MONITOR.
[2020-05-17] MEDS: INSULIN GLARGINE, 100 UNIT/ML CARTRIDGE SQ SCH (23:00)
--- NOTE | 2020-05-17 23:00 | NUR ---
FOLDING MACHINE FEEDER NOTE: PATIENT BLOOD SUGAR LEVEL 186MG/DL, PATIENT TO RECEIVE 3 UNITS OF INSULIN PER SLIDING SCALE. PATIENT ALSO TO RECEIVE 20 UNITS OF LANTUS PER SLIDING SCALE. WILL CONTINUE TO MONITOR.
[2020-05-18] VITALS (10 sets, daily range): BP systolic 121–158; BP diastolic 75–96
[2020-05-18] MEDS: IPRATROPIUM NEB FS 0.5 MG/2.5 ML AMPUL.NEB NEB SCH ×4 (00:58→20:00)
[2020-05-18] MEDS: ALBUTEROL FS 2.5 MG/0.5 ML VIAL.NEB NEB SCH ×4 (00:58→19:59)
[2020-05-18] MEDS: VANCOMYCIN 0.75 GM in IV D5W 250 ML IV SCH ×2 (02:28→14:45)
[2020-05-18] MEDS: METOCLOPRAMIDE HCL 10 MG/2 ML VIAL IV SCH ×3 (05:39→19:37)
[2020-05-18] MEDS: BLOOD SUGAR DIAGNOSTIC 1 EACH STRIP IN SCH ×4 (05:39→23:48)
--- NOTE | 2020-05-18 07:00 | NUR ---
CROWN ASSEMBLY MACHINE SET UP MECHANIC NOTE: PATIENT RESTING IN BED, NO ACUTE DISTRESS NOTED. BREATHING EVEN AND UNLABORED, NO SOB NOTED. VENT SETTINGS IN PLACE. HUGHES CATHETER IN PLACE. PICC LINE TO RIGHT UPPER ARM IN PLACE. NG TUBE TO LEFT NOSTRIL IN PLACE, INFUSING GLUCERNA AT 35ML/HR. HOB ELEVATED. PATIENT BLOOD SUGAR LEVEL 257MG/DL, PATIENT TO RECEIVE 9 UNITS OF INSULIN PER SLIDING SCALE. BED LOCKED AND IN LOWEST POSITION, WILL ENDORSE TO DAY NURSE TO CONTINUE WITH PLAN OF CARE.
[2020-05-18 07:21] LABS: BASOPHILS % (AUTO) 0.1 % (0.0-2.0); HEMATOCRIT 26 % (33-45); HEMOGLOBIN 8.2 g/dL (11.5-14.8); LYMPHOCYTES # (AUTO) 0.6 /CMM (0.8-4.8); LYMPHOCYTES % (AUTO) 4.5 % (20.0-44.0); MEAN CORPUSCULAR HGB CONC 32 g/dl (31.0-36.0); MEAN CORPUSCULAR VOLUME 84 fL (82-100); MONOCYTES # (AUTO) 0.8 /CMM (0.1-1.30); NEUTROPHILS # (AUTO) 11.5 /CMM (1.8-8.9); NEUTROPHILS % (AUTO) 89.4 % (43.0-81.0); PLATELET COUNT (AUTO) 233 /CMM (150-450); RED BLOOD CELL COUNT(AUTO) 3.03 MIL/uL (4.0-5.2); WHITE BLOOD COUNT (AUTO) 12.9 K/uL (4.3-11.0)
[2020-05-18] MEDS: INSULIN REGULAR, HUMAN 100 UNIT/ML 3 ML VIAL SQ PRN ×4 (07:45→23:49)
--- NOTE | 2020-05-18 08:06 | NUR ---
CYBER SECURITY SYSTEMS ENGINEER OPENING NOTES PT RECEIVED. PT DOWNGRADED TO TELE. PT RESTING IN BED. NO S/S OF DISTRESS. NO SOB. BREATHING EVEN AND UNLABORED. BED LOCKED, IN LOWEST POSITION. VENT SETTINGS IN PLACE. AC 24 TV 400 FIO2 40% PEEP 5 ET TUBE [address] PT DEMETRIUS PICC LINE INTACT.
[2020-05-18 08:12] LABS: CALCIUM, SERUM 7.7 mg/dL (8.5-10.1); CREATININE 0.5 mg/dL (0.6-1.3); MAGNESIUM 1.6 mg/dL (1.8-2.4); PHOSPHORUS 2.4 mg/dL (2.5-4.9); POTASSIUM 2.9 mmol/L (3.5-5.1)
[2020-05-18] MEDS: PANTOPRAZOLE 40 MG/PACK PACK NG SCH (08:26)
[2020-05-18] MEDS: VORICONAZOLE 200 MG TABLET GT SCH ×2 (08:26→20:20)
[2020-05-18] MEDS: ENOXAPARIN SODIUM 40 MG/0.4 ML DISP.SYRIN SQ SCH (08:28)
[2020-05-18] MEDS: PROSOURCE / PROSTAT (PYXIS) 30 ML UDC NG SCH ×3 (08:31→16:52)
[2020-05-18] MEDS: NEOMY SULF/BACITRAC ZN/POLY 15 GM TUBE TP SCH ×2 (08:32→16:53)
--- NOTE | 2020-05-18 09:15 | NUR ---
MS/RN Labs Morning labs reviewed: -H&H -K+ 2.6 - replaced -Mag 1.6 - replaced
[2020-05-18] MEDS: POTASSIUM CHLORIDE 20 MEQ POWDER PACKET NG SCH ×2 (09:59→12:07)
[2020-05-18] MEDS: Magnesium 1GM/D5W 100ML PREMIX 100 ML IV SCH ×3 (09:59→11:41)
[2020-05-18] MEDS: LORAZEPAM INJ 2 MG/ML VIAL IV PRN (10:06)
--- NOTE | 2020-05-18 10:15 | NUR ---
MS/RN S/B Dr Godron Seen by Dr Gordon - patient to be scheduled for trach placement. Telephone consent obtained from daughter Adan.
--- NOTE | 2020-05-18 10:47 | NUR ---
MS/RN Dr Shah Telephone order from Dr Shah - patient to be kept NPO from midnight, for possible trach placement tomorrow morning.
[2020-05-18] MEDS: CEFTRIAXONE 2 G in IV D5W 100 ML IV SCH (13:47)
--- NOTE | 2020-05-18 13:51 | NUR ---
MS/ RN Vancomycin administered as ordered. vancomycin trough due 0100 at once.
[2020-05-18] MEDS ORDERED: NEUTRA PHOS 1 POWD.PACKET NG ONE (14:30)
--- NOTE | 2020-05-18 15:14 | NUR ---
MS/ RN PT TO BE TRANSFERRED TO ICU ROOM 257.
--- NOTE | 2020-05-18 15:54 | NUR ---
rn pediatric icu note received patient from icu over flow patient in bed obtunded , with ett tube to vent setting as ordered, with huff cath to gravity, with ng tube feeding as ordered keep hob elevated at all time, rt uper arm picc line bed in lowest and locked position will cont to monitor
--- NOTE | 2020-05-18 17:00 | NUR ---
horticultural services supervisor note noted rt upper arm picc line is slightly out but unable to obtained blood return, called nursing heat treat supervisor to call picc line nurse ,stated that will call, ,will f\u Addendum: 05/18/20 at 1814 by DANE BETTS RN checked nikunj espinoza ube placement by air auscultations, keep hob elevated, will monitor
--- NOTE | 2020-05-18 19:00 | NUR ---
[facility] ICU OPENING NOTE RECEIVED PATIENT IN BED OBTUNDED ORALLY INTUBATED,DNR,ON MECHANICAL VENT SETTING ETT 7 AC 24 TV 400 FIO2 40% PEEP 5,O2:99% TACHYCARDIA HR 117, NPO AFTER MIDNIGHT,ON HUGHES CATHETER URINE DRAINING YELLOW AND CLEAR RIGHT UPPER ARM PICC LINE SLIGHTLY WORKING,WILL FOLLOW UP MID LINE,ON NGT FEEDING CHECKED PLACEMENT,IN PLACE NO RESIDUAL,GLUCERNA 1.2 RUNNING 35CC/HR ,HEAD THE BED ELEVATED,CONTINUE TO MONITOR,
--- NOTE | 2020-05-18 20:53 | NUR ---
RT pt received on mechanical vent with current settings. intubated, ett size 7.0, 22@lip. ett secure. vent plugged in to red outlet. ambu bag at [facility]. small thick secretions suctioned via ett. alarms on and audible. no sob, no resp distress. will continue to monitor.
[2020-05-18] MEDS: INSULIN GLARGINE, 100 UNIT/ML CARTRIDGE SQ SCH (21:52)
--- NOTE | 2020-05-18 21:53 | NUR ---
RN NOTE BS IS 139 INSULIN LANTUS 20 UNIT NOT ADMINISTERED PATIENT NPO AFTER MIDNIGHT CONTINUE TO MONITOR
--- NOTE | 2020-05-18 23:50 | NUR ---
RN NOTE BS IS 173 INSULIN PER SLIDING SCALE NOT ADMININSTRERED PT IS NPO AFTER MIDNIGHT CONTINUE TO MONITOR
[2020-05-19] VITALS (12 sets, daily range): BP systolic 107–161; BP diastolic 76–91
--- NOTE | 2020-05-19 00:11 | NUR ---
RN NOTE INSERTED A NEW MIDLINE ON LEFT UPPER ARM #18 G INTACT PATENT CONTINUE TO MONITOR
[2020-05-19] MEDS: ALBUTEROL FS 2.5 MG/0.5 ML VIAL.NEB NEB SCH ×4 (01:30→20:46)
[2020-05-19] MEDS: IPRATROPIUM NEB FS 0.5 MG/2.5 ML AMPUL.NEB NEB SCH ×4 (01:38→20:45)
--- NOTE | 2020-05-19 01:40 | NUR ---
RT albuterol not given due to high heart rate
[2020-05-19] MEDS ORDERED: VANCOMYCIN 1 GM VIAL ONE (02:01)
[2020-05-19] MEDS: VANCOMYCIN 0.75 GM in IV D5W 250 ML IV SCH (02:08)
[2020-05-19] MEDS: METOCLOPRAMIDE HCL 10 MG/2 ML VIAL IV SCH ×3 (03:14→20:53)
[2020-05-19 05:00] LABS: BASOPHILS % (AUTO) 0.4 % (0.0-2.0); EOSINOPHILS % (AUTO) 0.5 % (0.0-6.0); HEMATOCRIT 26 % (33-45); HEMOGLOBIN 8.3 g/dL (11.5-14.8); LYMPHOCYTES # (AUTO) 0.8 /CMM (0.8-4.8); LYMPHOCYTES % (AUTO) 7.5 % (20.0-44.0); MEAN CORPUSCULAR HGB CONC 32 g/dl (31.0-36.0); MEAN CORPUSCULAR VOLUME 84 fL (82-100); MONOCYTES # (AUTO) 0.8 /CMM (0.1-1.30); MONOCYTES % (AUTO) 8.3 % (2.0-12.0); NEUTROPHILS # (AUTO) 8.4 /CMM (1.8-8.9); NEUTROPHILS % (AUTO) 83.3 % (43.0-81.0); PLATELET COUNT (AUTO) 263 /CMM (150-450); RED BLOOD CELL COUNT(AUTO) 3.07 MIL/uL (4.0-5.2); WHITE BLOOD COUNT (AUTO) 10.1 K/uL (4.3-11.0)
[2020-05-19 05:13] LABS: CALCIUM, SERUM 7.9 mg/dL (8.5-10.1); CREATININE 0.5 mg/dL (0.6-1.3); MAGNESIUM 1.9 mg/dL (1.8-2.4); PHOSPHORUS 2.3 mg/dL (2.5-4.9); POTASSIUM 2.9 mmol/L (3.5-5.1)
[2020-05-19] MEDS: BLOOD SUGAR DIAGNOSTIC 1 EACH STRIP IN SCH ×3 (06:23→17:37)
[2020-05-19] MEDS: INSULIN REGULAR, HUMAN 100 UNIT/ML 3 ML VIAL SQ PRN ×3 (06:24→17:36)
--- NOTE | 2020-05-19 06:24 | NUR ---
RN NOTE BS IS 236 INSULIN NOT ADMINISTERED DUE TO PATIENT IS NPO,CONTINUE TO MONITOR
[2020-05-19] MEDS ORDERED: ANESTHESIA TRAY IN PYXIS 1 EA TRAY MC ONE (06:49)
[2020-05-19] MEDS ORDERED: CELLULOSE,OXIDIZED 1 PKT EACH MC ONE (06:50)
[2020-05-19] MEDS ORDERED: LIDOCAINE 1% INJ 50 ML MDV IJ ONE (06:50)
--- NOTE | 2020-05-19 06:55 | NUR ---
RN CLOSING NOTE PATIENT REMAINS ON OBTUNDED ALERT CONFUSED ON MECHANICAL VENT NPO FOR PLACE TRACH SURGERY ENDORSE NEXT COMING SHIFT FOR CONTINUATION OF CARE
--- NOTE | 2020-05-19 07:10 | NUR ---
RN INITIAL NOTES RECEIVED PT INTUBATED,ON VENT. NO RESPIRATORY DISTRESS NOTED. NO SOB NOTED. HOB ELEVATED. NO SIGNS OF PAIN NOTED. NGT N PLACE. TUBE FEEDING ON HOLD. PT FOR TRACH PLACEMENT TODAY. HUGHES IN PLACE. BLE ELEVATED. WILL MONITOR
--- NOTE | 2020-05-19 07:39 | NUR ---
RT RESP TX'S NOT GIVEN PATIENT WAS TRANSPORTED TO SURGERY. PATIENT UNAVAILABLE.
--- NOTE | 2020-05-19 07:42 | NUR ---
RT pt taken to surgery. no complications during transport. surgery will call when pt is ready to be taken back to room
--- NOTE | 2020-05-19 08:45 | NUR ---
RN NOTES 0720 PT LEFT TO OR FOR TRACH PLACEMENT 0835 PT BACK FROM OR. TRACH IN PLACE. MINIMAL BLEEDING NOTED. HOB ELEVATED. NO RESPIRATORY DISTRESS NOTED. WILL CLOSELY MONITOR
--- NOTE | 2020-05-19 09:10 | NUR ---
RT pt back from surgery. trached, shiley 8 cuffed. no sob, no resp distress. maintaining saturation and good volume. spare trach at bedside.
[2020-05-19] MEDS: POTASSIUM CL. PREMIX PERIPHER. 50 ML IV SCH ×6 (09:38→17:08)
[2020-05-19] MEDS: ENOXAPARIN SODIUM 40 MG/0.4 ML DISP.SYRIN SQ SCH (09:39)
[2020-05-19] MEDS: PANTOPRAZOLE 40 MG/PACK PACK NG SCH (09:39)
[2020-05-19] MEDS: NEOMY SULF/BACITRAC ZN/POLY 15 GM TUBE TP SCH ×2 (09:39→17:37)
[2020-05-19] MEDS: VORICONAZOLE 200 MG TABLET GT SCH ×2 (09:39→21:23)
[2020-05-19] MEDS: PROSOURCE / PROSTAT (PYXIS) 30 ML UDC NG SCH ×3 (09:40→17:00)
[2020-05-19] MEDS: GLUCERNA 1.2 1,000 ML BOTTLE NG PRN (11:48)
[2020-05-19] MEDS: HYDROCODONE/APAP 5/325MG TABLET PO PRN (13:34)
--- NOTE | 2020-05-19 13:53 | NUR ---
RN NOTES PT TRANSFERRED TO ROOM 314-1. PT IN STABLE CONDITION. REPORT GIVEN AT BEDSIDE. SUPRIYA SALDANA TOOK OVER PT'S CARE.
--- NOTE | 2020-05-19 14:00 | NUR ---
ICU TRANSFER PT RECEIVED AFTER REPORT RECEIVED FROM JADON EPPS. PT RESTING COMFORTABLY IN BED NO S/S OR C/O PAIN OR DISTRESS NOTED. VENT ASSESSED IN GOOD WORKING CONDITION. WILL CONTINUE PLAN OF CARE.
[2020-05-19] MEDS: CEFTRIAXONE 2 G in IV D5W 100 ML IV SCH (14:55)
[2020-05-19] MEDS ORDERED: NEUTRA PHOS 1 POWD.PACKET NG ONE (15:30)
[2020-05-19] MEDS: VANCOMYCIN 1 GM in IV D5W 250 ML IV SCH (17:08)
--- NOTE | 2020-05-19 20:32 | NUR ---
CHANGE OF SHIFT REPORT OT RESTING COMFORTABLY IN BED. NO S/S OR C/O PAIN OR DISTRESS NOTED. SIDE RAILS UP X2, CALL LIGHT LEFT WITHIN REACH. PT KEPT CLEAN DRY AND COMFORTABLE. NO SIGNIFICANT CHANGES SINCE PREVIOUS SHIFT. REPORT GIVEN TO CRISTÓBAL EPPS.
[2020-05-19] MEDS: INSULIN GLARGINE, 100 UNIT/ML CARTRIDGE SQ SCH (22:00)
--- NOTE | 2020-05-19 22:00 | NUR ---
RN NOTES BLOOD SUGAR 200- LANTUS WAS NOT GIVEN PT. WILL HAVE SURGERY TOMORROW
[2020-05-20] VITALS (8 sets, daily range): BP systolic 143–161; BP diastolic 61–92
[2020-05-20] MEDS: BLOOD SUGAR DIAGNOSTIC 1 EACH STRIP IN SCH ×4 (00:56→18:52)
[2020-05-20] MEDS: ALBUTEROL FS 2.5 MG/0.5 ML VIAL.NEB NEB SCH ×4 (02:33→20:16)
[2020-05-20] MEDS: IPRATROPIUM NEB FS 0.5 MG/2.5 ML AMPUL.NEB NEB SCH ×4 (02:33→20:16)
[2020-05-20] MEDS: VANCOMYCIN 1 GM in IV D5W 250 ML IV SCH ×2 (04:18→15:40)
[2020-05-20] MEDS: METOCLOPRAMIDE HCL 10 MG/2 ML VIAL IV SCH ×3 (04:18→20:10)
[2020-05-20 06:39] LABS: BASOPHILS # (AUTO) 0.1 /CMM (0.0-0.2); BASOPHILS % (AUTO) 1.3 % (0.0-2.0); EOSINOPHILS % (AUTO) 0.7 % (0.0-6.0); HEMATOCRIT 26 % (33-45); HEMOGLOBIN 8.5 g/dL (11.5-14.8); LYMPHOCYTES # (AUTO) 0.5 /CMM (0.8-4.8); LYMPHOCYTES % (AUTO) 6.7 % (20.0-44.0); MEAN CORPUSCULAR HGB CONC 32 g/dl (31.0-36.0); MEAN CORPUSCULAR VOLUME 86 fL (82-100); MONOCYTES # (AUTO) 0.6 /CMM (0.1-1.30); MONOCYTES % (AUTO) 7.3 % (2.0-12.0); NEUTROPHILS # (AUTO) 6.7 /CMM (1.8-8.9); PLATELET COUNT (AUTO) 200 /CMM (150-450); RED BLOOD CELL COUNT(AUTO) 3.06 MIL/uL (4.0-5.2)
[2020-05-20 07:04] LABS: CALCIUM, SERUM 7.6 mg/dL (8.5-10.1); CREATININE 0.4 mg/dL (0.6-1.3); MAGNESIUM 1.7 mg/dL (1.8-2.4); PHOSPHORUS 2.8 mg/dL (2.5-4.9); POTASSIUM 3.6 mmol/L (3.5-5.1)
--- NOTE | 2020-05-20 07:40 | NUR ---
RECEIVED PT IN BED. A/O X2-3. AFEBRILE. IN NO APPARENT DISTRESS. NPO SINCE MIDNIGHT FOR PEG TUBE PLACEMENT. WITH HORTENCIA MIDLINE. DEMETRIUS PICC LINE. ON HUGHES CATH, DRAINING WELL. SAFETY MEASURES APPLIED. BED IN LOWEST POSITION, LOCKED. SIDE RAILS UP X3. CALL LIGHT WITHIN REACH. WILL CONTINUE TO MONITOR.
[2020-05-20] MEDS: PANTOPRAZOLE 40 MG/PACK PACK NG SCH (08:45)
[2020-05-20] MEDS: ENOXAPARIN SODIUM 40 MG/0.4 ML DISP.SYRIN SQ SCH (08:45)
[2020-05-20] MEDS: VORICONAZOLE 200 MG TABLET GT SCH ×2 (08:45→20:28)
[2020-05-20] MEDS: PROSOURCE / PROSTAT (PYXIS) 30 ML UDC NG SCH ×3 (08:45→17:00)
[2020-05-20] MEDS: NEOMY SULF/BACITRAC ZN/POLY 15 GM TUBE TP SCH ×2 (08:47→17:28)
[2020-05-20] MEDS ORDERED: Magnesium 1GM/D5W 100ML PREMIX 50 ML IV SCH (10:30)
--- NOTE | 2020-05-20 10:45 | NUR ---
RN NOTES PEG TUBE PLACEMENT AT THE BEDSIDE.
--- NOTE | 2020-05-20 11:00 | NUR ---
RN NOTES S/P PEG TUBE DONE BY EDE SERRANO ABDOMEN, DRY AND INTACT. ADVISED TO RESUME MEDS TODAY 05/20. BUT FEEDING SHOULD BE RESUME ON 05/21. PATIENT IS STABLE. POST V/S 131/80 MN 107 TEMP 98.7. WILL CONTINUE TO MONITOR.
[2020-05-20] MEDS: CEFTRIAXONE 2 G in IV D5W 100 ML IV SCH (14:40)
[2020-05-20] MEDS: INSULIN REGULAR, HUMAN 100 UNIT/ML 3 ML VIAL SQ PRN (17:46)
[2020-05-20] MEDS: HYDROCODONE/APAP 5/325MG TABLET PO PRN (17:47)
--- NOTE | 2020-05-20 18:41 | NUR ---
RN CLOSING NOTES PATIENT IN BED. A/O X 3. AFEBRILE. IN NO APPARENT DISTRESS. BREATHING EVEN AND UNLABORED. WITH HORTENCIA MIDLINE, DEMETRIUS PICC LINE. G TUBE IN PLACE. ON HUGHES, DRAINING WELL. SAFETY MEASURES APPLIED. BED IN LOWEST POSITION, LOCKED. SIDE RAILS UP X2. CALL LIGHT WITHIN REACH. WILL ENDORSE TO NIGHT FOR CHANA.
[2020-05-20] MEDS ORDERED: PHENYTOIN SODIUM IV 100 MG/2ML VIAL ONE (21:13)
[2020-05-20] MEDS: INSULIN GLARGINE, 100 UNIT/ML CARTRIDGE SQ SCH (21:36)
--- NOTE | 2020-05-20 21:36 | NUR ---
RN NOTES BS - 137. Pt to resume feeding in AM. No IVF infusing at this time. Held insulin at this time. director call made aware.
[2020-05-21] VITALS (7 sets, daily range): BP systolic 150–174; BP diastolic 85–101
[2020-05-21] MEDS: ALBUTEROL FS 2.5 MG/0.5 ML VIAL.NEB NEB SCH ×4 (01:30→19:30)
[2020-05-21] MEDS: IPRATROPIUM NEB FS 0.5 MG/2.5 ML AMPUL.NEB NEB SCH ×4 (01:30→19:30)
[2020-05-21] MEDS: VANCOMYCIN 1 GM in IV D5W 250 ML IV SCH ×2 (02:45→15:30)
[2020-05-21] MEDS: METOCLOPRAMIDE HCL 10 MG/2 ML VIAL IV SCH ×3 (04:22→19:46)
[2020-05-21] MEDS: BLOOD SUGAR DIAGNOSTIC 1 EACH STRIP IN SCH ×5 (06:02→23:42)
[2020-05-21 07:07] LABS: BASOPHILS % (AUTO) 0.1 % (0.0-2.0); EOSINOPHILS % (AUTO) 1.5 % (0.0-6.0); HEMATOCRIT 26 % (33-45); HEMOGLOBIN 8.2 g/dL (11.5-14.8); LYMPHOCYTES # (AUTO) 0.5 /CMM (0.8-4.8); LYMPHOCYTES % (AUTO) 6.7 % (20.0-44.0); MEAN CORPUSCULAR HGB CONC 32 g/dl (31.0-36.0); MEAN CORPUSCULAR VOLUME 86 fL (82-100); MONOCYTES # (AUTO) 0.5 /CMM (0.1-1.30); MONOCYTES % (AUTO) 7.3 % (2.0-12.0); NEUTROPHILS # (AUTO) 6.2 /CMM (1.8-8.9); NEUTROPHILS % (AUTO) 84.4 % (43.0-81.0); PLATELET COUNT (AUTO) 267 /CMM (150-450); RED BLOOD CELL COUNT(AUTO) 2.99 MIL/uL (4.0-5.2); WHITE BLOOD COUNT (AUTO) 7.4 K/uL (4.3-11.0)
[2020-05-21 07:23] LABS: CALCIUM, SERUM 7.9 mg/dL (8.5-10.1); CREATININE 0.5 mg/dL (0.6-1.3); MAGNESIUM 1.6 mg/dL (1.8-2.4)
[2020-05-21 07:26] LABS: POTASSIUM 2.8 mmol/L (3.5-5.1)
--- NOTE | 2020-05-21 07:34 | NUR ---
RN NOTES Pt on bed. No new unusualities. No insulin given, pt to resume GTF @ 8AM today per . Endorsed.
--- NOTE | 2020-05-21 08:00 | NUR ---
RECEIVED PT. IN AM,VENT SETTINGS UNCHANGED.SKIN WARM AND DRY.SIDE RAILS UP.VS STABLE.ALERT AND ORIENTED X2-3.F/C WITH GOOD OUTPUT.
[2020-05-21] MEDS: GLUCERNA 1.2 1,000 ML BOTTLE NG PRN (08:30)
[2020-05-21] MEDS: PANTOPRAZOLE 40 MG/PACK PACK NG SCH (10:05)
[2020-05-21] MEDS: VORICONAZOLE 200 MG TABLET GT SCH ×2 (10:05→21:36)
[2020-05-21] MEDS: PROSOURCE / PROSTAT (PYXIS) 30 ML UDC NG SCH ×3 (10:06→17:34)
[2020-05-21] MEDS: ENOXAPARIN SODIUM 40 MG/0.4 ML DISP.SYRIN SQ SCH (10:09)
[2020-05-21] MEDS: NEOMY SULF/BACITRAC ZN/POLY 15 GM TUBE TP SCH ×2 (10:37→17:37)
[2020-05-21] MEDS: INSULIN REGULAR, HUMAN 100 UNIT/ML 3 ML VIAL SQ PRN ×3 (12:23→23:47)
[2020-05-21] MEDS: CEFTRIAXONE 2 G in IV D5W 100 ML IV SCH (13:57)
[2020-05-21] MEDS ORDERED: POTASSIUM CHLORIDE 20 MEQ POWDER PACKET NG SCH (14:30)
--- NOTE | 2020-05-21 15:30 | NUR ---
given potassium replacement per ng.
[2020-05-21] MEDS: hydrALAZINE HCL 10 MG TABLET NG PRN (16:13)
--- NOTE | 2020-05-21 16:23 | NUR ---
given hydralazine 10 mg per ng tube.heart rate 120,bp 174/98.
--- NOTE | 2020-05-21 16:27 | NUR ---
vent chgs ordered per peleg along with vivi sosa.
[2020-05-21] MEDS: Magnesium 1GM/D5W 100ML PREMIX 100 ML IV SCH ×2 (17:00→18:27)
--- NOTE | 2020-05-21 19:40 | NUR ---
BIZTALK DEVELOPER OPENING NOTES RECEIVED PATIENT IN BED ALERT AND ORIENTED X 2-3. ABLE TO MOUTH WORDS AND FOLLOW SIMPLE DIRECTIONS. BREATHING REGULAR AND UNLABORED ON OXYGEN AT 40% VIA MECHANICAL VENT, LATEST SPO2 99%. LEFT UPPER ARM MIDLINE AND RIGHT UPPER ARM PICC LINE INTACT AND PATENT, FLUSHING WELL WITH NO BLEEDING OR S/S OF INFILTRATION NOTED. ON CARDIAC MONITORING WITH SINUS TACHYCARDIA AT 110bpm. PEG TUBE INTACT WITH NO RESIDUAL ASPIRATED. SEEN WITH FACIAL GRIMACING AND INCREASED VITAL SIGNS, NON-PHARMACOLOGICAL INTERVENTIONS PROVIDED. BED LOW AND LOCKED ON SEMI FOWLERS POSITION. CALL LIGHT IN REACH. WILL CONTINUE TO MONITOR.
[2020-05-21] MEDS: HYDROCODONE/APAP 5/325MG TABLET PO PRN (19:46)
--- NOTE | 2020-05-21 19:50 | NUR ---
CELL ASSEMBLY PINNER NOTES SEEN WITH FACIAL GRIMACING AND INCREASED VITAL SIGNS, NORCO 5/325 GIVEN VIA PEG TUBE. WILL CONTINUE TO MONITOR.
[2020-05-21] MEDS: INSULIN GLARGINE, 100 UNIT/ML CARTRIDGE SQ SCH (21:47)
[2020-05-22] VITALS: BP_SYST 150; BP_SYST 161; BP_DIAS 84; BP_DIAS 86
[2020-05-22] MEDS: IPRATROPIUM NEB FS 0.5 MG/2.5 ML AMPUL.NEB NEB SCH ×4 (01:57→20:09)
[2020-05-22] MEDS: ALBUTEROL FS 2.5 MG/0.5 ML VIAL.NEB NEB SCH ×4 (01:57→20:09)
[2020-05-22] MEDS: VANCOMYCIN 1 GM in IV D5W 250 ML IV SCH ×2 (02:38→15:50)
[2020-05-22] MEDS: METOCLOPRAMIDE HCL 10 MG/2 ML VIAL IV SCH ×3 (03:05→20:36)
[2020-05-22 04:00] VITALS: BP 158/76
[2020-05-22] MEDS: GLUCERNA 1.2 1,000 ML BOTTLE NG PRN (04:56)
[2020-05-22] MEDS: BLOOD SUGAR DIAGNOSTIC 1 EACH STRIP IN SCH ×3 (06:17→17:50)
[2020-05-22] MEDS: INSULIN REGULAR, HUMAN 100 UNIT/ML 3 ML VIAL SQ PRN ×3 (06:17→17:49)
--- NOTE | 2020-05-22 06:50 | NUR ---
COLLAR PADDER BLINDSTITCH CLOSING NOTES PATIENT IN BED ALERT AND ORIENTED X 2-3. AFEBRILE WITH NO S/S OF DISTRESS OBSERVED. CURRENT VENT SETTING TOLERATING WELL. LEFT UPPER ARM MIDLINE AND RIGHT UPPER ARM PICC LINE PATENT AND FLUSHING WELL. MAINTAINED ON CARDIAC MONITORING WITH SINUS TACHYCARDIA. PEG TUBE INTACT WITH NO BLEEDING NOTED. NO S/S PAIN/DISCOMFORT SEEN AT THIS TIME. BED LOW AND LOCKED ON SEMI FOWLERS POSITION. CALL LIGHT IN REACH. WILL ENDORSE TO MORNING SHIFT FOR CHANA.
--- NOTE | 2020-05-22 07:36 | NUR ---
NEGATIVE SPOTTER OPENING NOTES RECEIVED PT AWAKE IN BED IN NO ACUTE SIGNS OF DISTRESS. HOB ELEVATED. PT IS A/O X2-3. ABLE TO MOUTH WORDS, DENIES, PAIN OR ANY DISCOMFORTS AT THIS TIME. PT ON TRACH CONNECTED TO MECHANICAL VENT AT PRESCRIBED SETTINGS, TOLERATING SETTINGS WELL WITH NO SOB NOTED. EXTERNAL MONITOR SHOWS CURRENT READING OF ST WITH HR 100-110, NO CARDIAC DISTRESS NOTED. HORTENCIA MIDLINE AND DEMETRIUS PICC LINE BOTH INTACT AND PATENT. G-TUBE IN PLACE WITH FEEDING OF GLUCERNA 1.2 @ 35ML/HR IN PROGRESS, TOLERATING WELL. ASPIRATION PRECAUTIONS MAINTAINED. HUGHES IN PLACE DRAINING CLEAR YELLOW URINE VIA GRAVITY. SAFETY MEASURES MAINTAINED: BED IS ON LOWEST POSITION AND LOCKED WITH SIDE RAILS UP X2. CALL LIGHT IS WITHIN REACH. WILL CONTINUE TO MONITOR PATIENT ACCORDINGLY.
[2020-05-22 08:00] VITALS: BP 141/86
[2020-05-22 09:32] LABS: CREATININE 0.5 mg/dL (0.6-1.3); POTASSIUM 3.1 mmol/L (3.5-5.1)
--- NOTE | 2020-05-22 10:10 | NUR ---
RN NOTES PT'S MECHANICAL VENT SETTINGS WEAN BY RT TO SIMV MODE, PT TOLERATING SETTINGS WELL AT THIS TIME, NO SOB NOTED. WILL CONTINUE TO MONITOR.
[2020-05-22 10:34] LABS: EOSINOPHILS % (AUTO) 3.1 % (0.0-6.0); HEMATOCRIT 25 % (33-45); HEMOGLOBIN 8.1 g/dL (11.5-14.8); LYMPHOCYTES # (AUTO) 0.5 /CMM (0.8-4.8); LYMPHOCYTES % (AUTO) 6.7 % (20.0-44.0); MEAN CORPUSCULAR HGB CONC 32 g/dl (31.0-36.0); MEAN CORPUSCULAR VOLUME 86 fL (82-100); MONOCYTES # (AUTO) 0.5 /CMM (0.1-1.30); MONOCYTES % (AUTO) 6.8 % (2.0-12.0); NEUTROPHILS # (AUTO) 6.3 /CMM (1.8-8.9); NEUTROPHILS % (AUTO) 83.4 % (43.0-81.0); PLATELET COUNT (AUTO) 267 /CMM (150-450); RED BLOOD CELL COUNT(AUTO) 2.96 MIL/uL (4.0-5.2); WHITE BLOOD COUNT (AUTO) 7.5 K/uL (4.3-11.0)
[2020-05-22] MEDS: PANTOPRAZOLE 40 MG/PACK PACK NG SCH (10:51)
[2020-05-22] MEDS: ENOXAPARIN SODIUM 40 MG/0.4 ML DISP.SYRIN SQ SCH (10:54)
[2020-05-22] MEDS: NEOMY SULF/BACITRAC ZN/POLY 15 GM TUBE TP SCH ×2 (10:55→17:50)
[2020-05-22 10:56] LABS: ABG BASE EXCESS 7.3 mmol/L; ABG OXYGEN SATURATION 98.3 % (92.0-98.5); ABG PCO2 36.3 mmHg (35.0-45.0); ABG PO2 113.4 mmHg (75.0-100.0); AaDO2 130.1 mmHg; COHb 1.6 % (0.5-1.5); MetHb 0.3 % (0.0-1.5); O2Hb 96.4 % (94.0-97.0); PEEP,BG 5 cm H2O; SITE, ABG Left Radial; VENT MODE, BG SIMV 40% PSV15; VT, ABG 400 mL
[2020-05-22] MEDS: PROSOURCE / PROSTAT (PYXIS) 30 ML UDC NG SCH ×3 (10:57→17:50)
[2020-05-22] MEDS: VORICONAZOLE 200 MG TABLET GT SCH ×2 (11:01→21:19)
[2020-05-22 11:09] LABS: ALANINE AMINOTRANSFERASE 9 U/L (12-78); ALBUMIN 1.8 g/dL (3.4-5.0); ALKALINE PHOSPHATASE 127 U/L (46-116); ASPARTATE AMINOTRANSFERASE 24 U/L (15-37); BILIRUBIN,TOTAL 0.2 mg/dL (0.2-1.0); CALCIUM, SERUM 7.9 mg/dL (8.5-10.1); CARBON DIOXIDE 33 mmol/L (21-32); CHLORIDE 105 mmol/L (98-107); CREATININE 0.6 mg/dL (0.6-1.3); GLUCOSE 158 mg/dL (74-106); POTASSIUM 3.2 mmol/L (3.5-5.1); SODIUM SERUM 141 mmol/L (136-145); TOTAL PROTEIN, SERUM 6.5 g/dL (6.4-8.2); UREA NITROGEN, BLOOD 10 mg/dL (7-18)
[2020-05-22 12:00] VITALS: BP 130/65
[2020-05-22] MEDS ORDERED: POTASSIUM CHLORIDE 20 MEQ POWDER PACKET NG SCH (13:30)
[2020-05-22] MEDS: CEFTRIAXONE 2 G in IV D5W 100 ML IV SCH (13:41)
[2020-05-22 15:19] LABS: BILIRUBIN,DIRECT 0.1 mg/dL (0.0-0.2)
[2020-05-22 16:00] VITALS: BP 148/74
--- NOTE | 2020-05-22 18:07 | NUR ---
RN NOTES PATIENT WITH ELEVATED LACTIC ACID 2.6 THIS MORNING, MD MADE AWARE. LACTIC ACID RETAKEN THIS AFTERNOON AND WENT DOWN TO NORMAL LEVEL OF 1.2. WILL CONTINUE TO MONITOR.
--- NOTE | 2020-05-22 19:39 | NUR ---
COP CLOSING NOTES PT AWAKE IN BED AT THIS TIME, IN NO ACUTE SIGNS OF DISTRESS. HOB ELEVATED. PT A/O X2-3. ABLE TO MOUTH WORDS. PT ON TRACH CONNECTED TO MECHANICAL VENT AT PRESCRIBED SETTINGS, TOLERATING SETTINGS WELL WITH NO SOB NOTED. EXTERNAL MONITOR SHOWS CURRENT READING OF ST WITH HR 100-110, NO CARDIAC DISTRESS NOTED. HORTENCIA MIDLINE AND DEMETRIUS PICC LINE BOTH INTACT, PATENT, AND FLUSHES WELL. G-TUBE IN PLACE WITH FEEDING OF GLUCERNA 1.2 @ 35ML/HR IN PROGRESS, TOLERATING WELL. ASPIRATION PRECAUTIONS MAINTAINED. HUGHES IN PLACE DRAINING CLEAR YELLOW URINE VIA GRAVITY. PATIENT TURNED AND REPOSITIONED EVERY 2 HRS, KEPT CLEAN AND DRY. SAFETY MEASURES MAINTAINED: BED IS ON LOWEST POSITION AND LOCKED WITH SIDE RAILS UP X2. CALL LIGHT IS WITHIN REACH. ENDORSED TO PEANUT SORTER RN CHANA.
--- NOTE | 2020-05-22 19:50 | NUR ---
MS RN NOTE: RECEIVED PT AWAKE IN BED IN NO ACUTE SIGNS OF DISTRESS. HOB ELEVATED. PT IS A/O X2-3. ABLE TO MOUTH WORDS, DENIES, PAIN OR ANY DISCOMFORTS AT THIS TIME. PT ON TRACH CONNECTED TO MECHANICAL VENT AT PRESCRIBED SETTINGS, TOLERATING SETTINGS WELL WITH NO SOB NOTED. NO CARDIAC DISTRESS NOTED. HORTENCIA MIDLINE AND DEMETRIUS PICC LINE BOTH INTACT AND PATENT. G-TUBE IN PLACE WITH FEEDING OF GLUCERNA 1.2 @ 35ML/HR IN PROGRESS, TOLERATING WELL. ASPIRATION PRECAUTIONS MAINTAINED. HUGHES IN PLACE DRAINING CLEAR YELLOW URINE VIA GRAVITY. SAFETY MEASURES MAINTAINED: BED IS ON LOWEST POSITION AND LOCKED WITH SIDE RAILS UP X2. CALL LIGHT IS WITHIN REACH. WILL CONTINUE TO MONITOR PATIENT ACCORDINGLY.
[2020-05-22 20:00] VITALS: BP 138/90
[2020-05-22] MEDS: INSULIN GLARGINE, 100 UNIT/ML CARTRIDGE SQ SCH (22:00)
--- NOTE | 2020-05-22 22:19 | NUR ---
MS RN NOTE: HELD LANTUS DUE TO BLOOD SUGAR LEVEL OF 92. WILL CONTINUE TO MONITOR
[2020-05-23] VITALS: BP 140/74
[2020-05-23] MEDS: BLOOD SUGAR DIAGNOSTIC 1 EACH STRIP IN SCH ×4 (00:20→17:38)
[2020-05-23] MEDS: ALBUTEROL FS 2.5 MG/0.5 ML VIAL.NEB NEB SCH ×4 (01:27→20:04)
[2020-05-23] MEDS: IPRATROPIUM NEB FS 0.5 MG/2.5 ML AMPUL.NEB NEB SCH ×4 (01:27→20:04)
[2020-05-23] MEDS: VANCOMYCIN 1 GM in IV D5W 250 ML IV SCH ×2 (03:18→15:47)
[2020-05-23 04:00] VITALS: BP 148/60
[2020-05-23] MEDS: METOCLOPRAMIDE HCL 10 MG/2 ML VIAL IV SCH ×3 (04:09→20:37)
[2020-05-23] MEDS: INSULIN REGULAR, HUMAN 100 UNIT/ML 3 ML VIAL SQ PRN ×3 (06:00→17:40)
[2020-05-23 08:00] VITALS: BP 148/71
[2020-05-23 09:50] LABS: BASOPHILS # (AUTO) 0.1 /CMM (0.0-0.2); BASOPHILS % (AUTO) 0.9 % (0.0-2.0); EOSINOPHILS % (AUTO) 2.3 % (0.0-6.0); HEMATOCRIT 25 % (33-45); LYMPHOCYTES # (AUTO) 0.6 /CMM (0.8-4.8); LYMPHOCYTES % (AUTO) 9.2 % (20.0-44.0); MEAN CORPUSCULAR HGB CONC 32 g/dl (31.0-36.0); MEAN CORPUSCULAR VOLUME 86 fL (82-100); MONOCYTES # (AUTO) 0.4 /CMM (0.1-1.30); MONOCYTES % (AUTO) 6.8 % (2.0-12.0); NEUTROPHILS # (AUTO) 4.9 /CMM (1.8-8.9); NEUTROPHILS % (AUTO) 80.8 % (43.0-81.0); PLATELET COUNT (AUTO) 223 /CMM (150-450); RED BLOOD CELL COUNT(AUTO) 2.93 MIL/uL (4.0-5.2); WHITE BLOOD COUNT (AUTO) 6.1 K/uL (4.3-11.0)
[2020-05-23 10:13] LABS: CREATININE 0.5 mg/dL (0.6-1.3); POTASSIUM 3.6 mmol/L (3.5-5.1)
[2020-05-23] MEDS: VORICONAZOLE 200 MG TABLET GT SCH ×2 (10:14→20:37)
[2020-05-23] MEDS: PROSOURCE / PROSTAT (PYXIS) 30 ML UDC NG SCH ×3 (10:14→17:39)
[2020-05-23] MEDS: PANTOPRAZOLE 40 MG/PACK PACK NG SCH (10:14)
[2020-05-23] MEDS: ENOXAPARIN SODIUM 40 MG/0.4 ML DISP.SYRIN SQ SCH (10:17)
[2020-05-23] MEDS: NEOMY SULF/BACITRAC ZN/POLY 15 GM TUBE TP SCH ×2 (12:12→17:38)
[2020-05-23 14:00] VITALS: BP 134/66
[2020-05-23] MEDS: CEFTRIAXONE 2 G in IV D5W 100 ML IV SCH (14:55)
[2020-05-23] MEDS: GLUCERNA 1.2 1,000 ML BOTTLE NG PRN (14:55)
[2020-05-23 16:00] VITALS: BP 127/52
--- NOTE | 2020-05-23 18:13 | NUR ---
TELE/RN CLOSING NOTE THE PATIENT IS AWAKE, ALERT AND ORIENTED X2-3 AND ABLE TO MOUTH WORDS.DENIES PAIN. PATIENT IS ON VENT/TRACH AND TOLERATES THE SETTING WELL. TELE BOX READING IS SR 101. HORTENCIA HORTENCIA MIDLINE PATENT AND SALINE LOCKED. DEMETRIUS PICC LINE PRESENT BUT DOES NOT FLUSH WELL. MIDLINE/PICCLINE NURSE ASSESSED AND SHE ALSO THINKS THAT THE LINE DOES NOT WORK. PAGED DR FOREMAN TO GET AN ORDER TO DISCONTINUE THE PICCLINE. WAITING FOR ORDER. HUGHES CATH PRESENT AND DRAINING CLEAR, YELLOW COLOR URINE. NO BLADDER DISTENSION NOTED. GT FEEDING GLUCERNA 1.2 INFUSING AT 50 ML/HR. NO RESIDUAL NOTED. ABDOMEN SOFT AND NON-DISTENDED. BED LOW AND LOCKED. SIDE RAILS UP X3. CALL LIGHT WITHIN REACH. WILL ENDORSE TO RABBIT BREEDER.
--- NOTE | 2020-05-23 18:49 | NUR ---
TELE/RN NOTE DISCONTINUED DEMETRIUS PICC LINE PER DR FOREMAN ORDER. NO BLEEDING AT THE SITE. THE SIDE COVERED WITH 2X2. NO MISSING PIECE FROM PICC LINE NOTED. WILL ENDORSE TO POLISH MAKER TO CONTINUE TO MONITOR.
--- NOTE | 2020-05-23 19:50 | NUR ---
RN opening notes Received Pt from morning nurse. Pt is resting in bed comfortably. Pt is alert and orientedX2-3 and able to mouth words. Respiration on vent shiley#8, TV 400 and FI02 40 %. No SOB. No S/S of distress noted. tele monitor showed SR hr at 90 bpm. HORTENCIA midline is clean, intact and SL. Roger cath is intact and draining yellow urine. Gtube feeding is intact and infusing well glucerna 1.2 @ 50 ml/hr. Safety precautions is maintained. Bed at low position, brakes locked, side rails upX2 and call light is within reach. Will continue to monitor.
[2020-05-23 20:00] VITALS: BP 153/76
[2020-05-23] MEDS: INSULIN GLARGINE, 100 UNIT/ML CARTRIDGE SQ SCH (22:04)
[2020-05-24] VITALS: BP 151/86
[2020-05-24] MEDS: BLOOD SUGAR DIAGNOSTIC 1 EACH STRIP IN SCH ×4 (00:59→18:19)
[2020-05-24] MEDS: INSULIN REGULAR, HUMAN 100 UNIT/ML 3 ML VIAL SQ PRN ×4 (01:09→17:58)
[2020-05-24] MEDS: IPRATROPIUM NEB FS 0.5 MG/2.5 ML AMPUL.NEB NEB SCH ×4 (02:14→20:05)
[2020-05-24] MEDS: ALBUTEROL FS 2.5 MG/0.5 ML VIAL.NEB NEB SCH ×4 (02:14→20:05)
[2020-05-24] MEDS: VANCOMYCIN 1 GM in IV D5W 250 ML IV SCH (02:37)
[2020-05-24] MEDS: METOCLOPRAMIDE HCL 10 MG/2 ML VIAL IV SCH ×3 (03:37→20:20)
[2020-05-24 04:00] VITALS: BP 154/92
--- NOTE | 2020-05-24 07:00 | NUR ---
RN closing notes Pt is resting in bed comfortably. Pt is alert and orientedX2-3 and able to mouth words. Respiration on vent shiley#8, TV 400 and FI02 40 %. No SOB. No S/S of distress noted. tele monitor showed S. tachy hr at 104 bpm. VS is stable. Afebrile. HORTENCIA midline is clean, intact and SL. Roger cath is intact and draining yellow urine. Gtube feeding is intact and infusing well glucerna 1.2 @ 50 ml/hr with 0 residual. Safety precautions is maintained. Bed at low position, brakes locked, side rails upX2 and call light is within reach. Will endorse to morning nurse for CHANA.
--- NOTE | 2020-05-24 07:37 | NUR ---
TELE OPEN NOTES PATIENT IS AWAKE IN BED MOUTH WORDS WITH NO SIGNS OF DISTRESS ON VENT SETTINGS SHILEY #8 TV 400 AND FIO2 40%. L UA MIDLINE SL. G-TUBE INTACT FEEDING GLUCERNA 1.2 AT 50ML/HR. HUGHES CATH INTACT. TELE MONITOR ST 104. NO SIGNS OF PAIN AT THIS MOMENT. SAFETY MEASURES ARE APPLIED, BED IN THE LOWEST AND LOCKED POSITION. SIDE RAILS UP X 2. CALL LIGHT WITHIN REACH WILL CONTINUE TO MONITOR.
[2020-05-24 08:00] VITALS: BP 160/92
--- NOTE | 2020-05-24 09:42 | NUR ---
WOUND CARE CONSULT: PT SEEN FOR SKIN ASSESSMENT AND NOTED TO HAVE HEALED AREA TO RT ANTERIOR THIGH, HEALED AREA TO LEFT EAR AND SACRAL DEEP TISSUE INJURY WHICH IS IN EVOLUTION. PT NOTED TO HAVE MULTIPLE CO-MORBIDITIES INCLUDING RESPIRATORY FAILURE (TRACH AND VENT), DIABETES, ANEMIA AND ANASARCA. DUE TO MULTIPLE CO-MORBIDITIES, FURTHER SKIN BREAKDOWN MAY BE UNAVOIDABLE. RECOMMENDATIONS MADE FOR WOUND CARE AND SKIN PROTECTION. DISCUSSED WITH NURSING STAFF. PT IS ON FIRST STEP [facility]. IN AGREEMENT WITH PLAN OF CARE. Addendum: 05/24/20 at 0945 by LEISA SPANN WNDNU Amended: Links added.
[2020-05-24] MEDS: PANTOPRAZOLE 40 MG/PACK PACK NG SCH (09:53)
[2020-05-24] MEDS: VORICONAZOLE 200 MG TABLET GT SCH ×2 (09:54→20:20)
[2020-05-24] MEDS: hydrALAZINE HCL 10 MG TABLET NG PRN ×2 (09:54→16:58)
[2020-05-24] MEDS: ENOXAPARIN SODIUM 40 MG/0.4 ML DISP.SYRIN SQ SCH (09:56)
[2020-05-24] MEDS: PROSOURCE / PROSTAT (PYXIS) 30 ML UDC NG SCH ×3 (09:57→16:54)
[2020-05-24] MEDS: NEOMY SULF/BACITRAC ZN/POLY 15 GM TUBE TP SCH ×2 (10:04→18:13)
[2020-05-24 12:00] VITALS: BP 153/84
[2020-05-24] MEDS: HYDROCODONE/APAP 5/325MG TABLET PO PRN (12:39)
[2020-05-24] MEDS: CEFTRIAXONE 2 G in IV D5W 100 ML IV SCH (13:47)
[2020-05-24 15:05] LABS: CREATININE 0.6 mg/dL (0.6-1.3); POTASSIUM 2.9 mmol/L (3.5-5.1)
[2020-05-24] MEDS: GLUCERNA 1.2 1,000 ML BOTTLE NG PRN (15:17)
[2020-05-24 16:00] VITALS: BP 160/94
[2020-05-24] MEDS ORDERED: POTASSIUM CHLORIDE 20 MEQ POWDER PACKET GT ONE (16:30)
--- NOTE | 2020-05-24 21:40 | NUR ---
TELE CLOSE NOTES PATIENT IS AWAKE IN BED MOUTH WORDS WITH NO SIGNS OF DISTRESS ON VENT SETTINGS SHILEY #8 TV 400 AND FIO2 40%. L UA MIDLINE SL. G-TUBE INTACT FEEDING GLUCERNA 1.2 AT 50ML/HR. HUGHES CATH INTACT. TELE MONITOR SR 94. NO SIGNS OF PAIN AT THIS MOMENT. PATIENT KEPT CLEAN AND DRY. ALL NEEDS, CARE, TREATMENT, AND MEDICATIONS WERE ADMINISTERED ANTICIPATED PER ORDER. SAFETY MEASURES ARE APPLIED, BED IS IN LOW POSITION SIDE RAILS UP X 2. CALL LIGHT WITHIN REACH WILL ENDORSE TO THE TEAM MANAGER NURSE.
--- NOTE | 2020-05-24 21:50 | NUR ---
RN NOTES PATIENT IS ASLEE[ IN BED MOUTH WORDS WITH NO SIGNS OF DISTRESS ON VENT SETTINGS SHILEY #8 TV 400 AND FIO2 40%. L UA MIDLINE SL. G-TUBE INTACT FEEDING GLUCERNA 1.2 AT 50ML/HR. HUGHES CATH INTACT. TELE MONITOR ST 104. NO SIGNS OF PAIN AT THIS MOMENT. SAFETY MEASURES ARE APPLIED, BED IN THE LOWEST AND LOCKED POSITION. SIDE RAILS UP X 2. CALL LIGHT WITHIN REACH WILL CONTINUE TO MONITOR.
[2020-05-24] MEDS: INSULIN GLARGINE, 100 UNIT/ML CARTRIDGE SQ SCH (22:51)
[2020-05-25] VITALS: BP 150/85
[2020-05-25] MEDS: BLOOD SUGAR DIAGNOSTIC 1 EACH STRIP IN SCH ×4 (00:22→17:15)
[2020-05-25] MEDS: INSULIN REGULAR, HUMAN 100 UNIT/ML 3 ML VIAL SQ PRN ×3 (00:29→17:17)
[2020-05-25] MEDS: ALBUTEROL FS 2.5 MG/0.5 ML VIAL.NEB NEB SCH ×4 (01:36→20:43)
[2020-05-25] MEDS: IPRATROPIUM NEB FS 0.5 MG/2.5 ML AMPUL.NEB NEB SCH ×4 (01:36→20:43)
[2020-05-25] MEDS: METOCLOPRAMIDE HCL 10 MG/2 ML VIAL IV SCH ×3 (03:55→21:08)
[2020-05-25 04:00] VITALS: BP 134/76
--- NOTE | 2020-05-25 06:25 | NUR ---
RN NOTES PATIENT IS AWAKE IN BED MOUTH WORDS WITH NO SIGNS OF DISTRESS ON VENT SETTINGS SHILEY #8 TV 400 AND FIO2 40%. HORTENCIA MIDLINE SL. G-TUBE INTACT FEEDING GLUCERNA 1.2 AT 50ML/HR. HUGHES CATH INTACT. TELE MONITOR ST 104. NO SIGNS OF PAIN AT THIS MOMENT. SAFETY MEASURES ARE APPLIED, BED IN THE LOWEST AND LOCKED POSITION. SIDE RAILS UP X 2. CALL LIGHT WITHIN REACH WILL CONTINUE TO MONITOR.
--- NOTE | 2020-05-25 07:40 | NUR ---
TELE OPENING NOTE PATIENT IS IN BED RESTING. PATIENT IS IN NO ACUTE DISTRESS. NO SOB NOTED. HOB ELEVATED. PATIENT IS ON VENT. PATIENT IS ON BUSINESS ANALYST PROJECT MANAGER READING SR 94. SAFETY MEASURES ARE IN PLACE. PATIENTS BED IS LOCKED AND IN THE LOWEST POSITION. SIDE RAILS ARE UP. CALL LIGHT WITHIN REACH. WILL CONTINUE TO MONITOR THOUGHT OUT THE SHIFT.
[2020-05-25 08:00] VITALS: BP 179/85
[2020-05-25] MEDS: VORICONAZOLE 200 MG TABLET GT SCH ×2 (09:46→21:32)
[2020-05-25] MEDS: PANTOPRAZOLE 40 MG/PACK PACK NG SCH (09:46)
[2020-05-25] MEDS: PROSOURCE / PROSTAT (PYXIS) 30 ML UDC NG SCH ×3 (09:46→17:15)
[2020-05-25] MEDS: ENOXAPARIN SODIUM 40 MG/0.4 ML DISP.SYRIN SQ SCH (09:52)
[2020-05-25] MEDS: NEOMY SULF/BACITRAC ZN/POLY 15 GM TUBE TP SCH ×2 (10:03→17:15)
[2020-05-25] MEDS: CEFTRIAXONE 2 G in IV D5W 100 ML IV SCH (14:26)
[2020-05-25 15:10] LABS: CALCIUM, SERUM 8.3 mg/dL (8.5-10.1); CREATININE 0.3 mg/dL (0.6-1.3); POTASSIUM 3.4 mmol/L (3.5-5.1)
[2020-05-25 16:00] VITALS: BP 154/89
--- NOTE | 2020-05-25 19:39 | NUR ---
CYTOGENETICIST CLOSING NOTE PATIENT IS IN BED RESTING COMFORTABLY. NO SIGNS OR SYMPTOMS OF DISTRESS. PATIENT IS ON VENT. NO SOB NOTED. HOB ELEVATED. PATIENT IS ON ELECTRODE CLEANER READING SR 87. PATIENT HAS G-TUBE. SAFETY MEASURES ARE IN PLACE. BED IS LOCKED AND IN THE LOWEST POSITION. SIDE RAILS ARE UP CALL LIGHT WITHIN REACH. ENDORSE PATIENT TO THE CONTROL PANEL BUILDER FOR [employer]ANA.
[2020-05-25 20:00] VITALS: BP 147/88
--- NOTE | 2020-05-25 20:00 | NUR ---
TELE TITLE ABSTRACTOR INITIAL NOTES PATIENT SEEN IN BED AWAKE , WITH NO SIGNS OF DISTRESS ON VENT SETTINGS SHILEY #8 TV 400 AND FIO2 40%. L UA MIDLINE SL. G-TUBE INTACT FEEDING GLUCERNA 1.2 AT 50ML/HR NO RESIDUAL NOTED. HUGHES CATH INTACT. TELE MONITOR ST 111. NO SIGNS OF PAIN OR ANY DISTRESS NOTED . KEPT PT ON SEMI FOWLERS POSITION WITH SIDE RAILS X2 UP . KEPT HER WARM AND COMFORTABLE AT ALL TIMES. WILL CONTINUE MONITORING.
[2020-05-25] MEDS: INSULIN GLARGINE, 100 UNIT/ML CARTRIDGE SQ SCH (22:43)
[2020-05-26] VITALS: BP 155/86
[2020-05-26] MEDS: ALBUTEROL FS 2.5 MG/0.5 ML VIAL.NEB NEB SCH ×4 (00:35→19:33)
[2020-05-26] MEDS: IPRATROPIUM NEB FS 0.5 MG/2.5 ML AMPUL.NEB NEB SCH ×4 (00:35→19:33)
[2020-05-26] MEDS: BLOOD SUGAR DIAGNOSTIC 1 EACH STRIP IN SCH ×4 (00:51→17:18)
[2020-05-26] MEDS: INSULIN REGULAR, HUMAN 100 UNIT/ML 3 ML VIAL SQ PRN ×4 (01:00→18:26)
[2020-05-26] MEDS: GLUCERNA 1.2 1,000 ML BOTTLE NG PRN (01:06)
[2020-05-26 04:00] VITALS: BP 139/88
[2020-05-26] MEDS: METOCLOPRAMIDE HCL 10 MG/2 ML VIAL IV SCH ×3 (05:10→20:39)
[2020-05-26 08:00] VITALS: BP 159/94
[2020-05-26] MEDS: PROSOURCE / PROSTAT (PYXIS) 30 ML UDC NG SCH ×3 (08:11→17:05)
[2020-05-26] MEDS: PANTOPRAZOLE 40 MG/PACK PACK NG SCH (08:12)
[2020-05-26] MEDS: ENOXAPARIN SODIUM 40 MG/0.4 ML DISP.SYRIN SQ SCH (08:13)
[2020-05-26] MEDS: NEOMY SULF/BACITRAC ZN/POLY 15 GM TUBE TP SCH ×2 (08:14→17:06)
[2020-05-26] MEDS: VORICONAZOLE 200 MG TABLET GT SCH ×2 (08:14→21:19)
--- NOTE | 2020-05-26 08:30 | NUR ---
TELE MALE MODEL CLOSING NOTES PATIENT IS AWAKE IN BED WITH NO SIGNS OF DISTRESS ON VENT SETTINGS SHILEY #8 TV 400 AND FIO2 40%. HORTENCIA MIDLINE SL. G-TUBE INTACT FEEDING GLUCERNA 1.2 AT 50ML/HR. HUGHES CATH INTACT. TELE MONITOR SR 99 NO SIGNS OF PAIN AT THIS MOMENT. SAFETY MEASURES ARE APPLIED, BED IN THE LOWEST AND LOCKED POSITION. SIDE RAILS UP X 2. CALL LIGHT WITHIN REACH WILL CONTINUE TO MONITOR. ENDORSE .
[2020-05-26 12:00] VITALS: BP 146/82
[2020-05-26] MEDS: CEFTRIAXONE 2 G in IV D5W 100 ML IV SCH (14:02)
[2020-05-26] MEDS ORDERED: Insulin Glargine,Hum SQ (14:06)
[2020-05-26 14:22] LABS: CALCIUM, SERUM 8.5 mg/dL (8.5-10.1); CREATININE 0.4 mg/dL (0.6-1.3); POTASSIUM 3.5 mmol/L (3.5-5.1)
[2020-05-26 16:00] VITALS: BP 138/84
--- NOTE | 2020-05-26 18:00 | NUR ---
received pt. in am vent settings unchanged,no residual,f/c with good output.no noted distress.received negative covid test late in shift.set up and charger informed.
--- NOTE | 2020-05-26 20:00 | NUR ---
TELE VOCATIONAL REHABILITATION CONSULTANT INITIAL NOTES PATIENT SEEN IN BED AWAKE ,WATCHING TV AT THIS TIME. WITH NO SIGNS OF DISTRESS ON VENT SETTINGS SHILEY #8 TV 400 AND FIO2 40%. LEFT UPPER MIDLINE SL. ON G-TUBE FEEDING INTACT AND PATENT GLUCERNA 1.2 AT 50ML/HR NO RESIDUAL NOTED. HUGHES CATH INTACT WITH CLEAR YELLOW OUTPUT NOTED. TELE MONITOR SINUS RHYTHM HEART RATE 93. NO SIGNS OF PAIN OR ANY DISTRESS NOTED . KEPT PT ON SEMI FOWLERS POSITION WITH SIDE RAILS X2 UP . KEPT HER WARM AND COMFORTABLE AT ALL TIMES. WILL CONTINUE MONITORING.
[2020-05-26 20:38] VITALS: BP 153/77
--- NOTE | 2020-05-26 20:39 | NUR ---
SUBSTANCE ABUSE COUNSELOR NOTES GIVEN REGLAN IV FOR HARRISON. CHECKED ID BAND AND PATIENT IDENTIFIERS PRIOR TO ADMINISTRATION. PT ALSO HAS NO KNOWN ALLERGIES
[2020-05-26] MEDS: INSULIN GLARGINE, 100 UNIT/ML CARTRIDGE SQ SCH (22:04)
--- NOTE | 2020-05-27 | NUR ---
TELE MUCK OPERATOR NOTES PT SLEEPING AT THIS TIME WITHOUT ANY DISTRESS NOTED. TELE SR PER MONITOR. G-TUBE FEEDING TOLERATED WELL NO ASPIRATION NOTED. SUCTIONED NEEDED. WILL CONTINUE MONITORING.
[2020-05-27] MEDS: BLOOD SUGAR DIAGNOSTIC 1 EACH STRIP IN SCH ×4 (00:25→18:30)
[2020-05-27] MEDS: GLUCERNA 1.2 1,000 ML BOTTLE NG PRN (00:27)
[2020-05-27 00:30] VITALS: BP 154/74
[2020-05-27] MEDS: INSULIN REGULAR, HUMAN 100 UNIT/ML 3 ML VIAL SQ PRN ×3 (00:45→18:33)
[2020-05-27] MEDS: IPRATROPIUM NEB FS 0.5 MG/2.5 ML AMPUL.NEB NEB SCH ×4 (00:51→19:59)
[2020-05-27] MEDS: ALBUTEROL FS 2.5 MG/0.5 ML VIAL.NEB NEB SCH ×4 (00:51→19:59)
[2020-05-27] MEDS: METOCLOPRAMIDE HCL 10 MG/2 ML VIAL IV SCH ×3 (04:21→20:41)
[2020-05-27 04:25] VITALS: BP 140/72
--- NOTE | 2020-05-27 07:34 | NUR ---
TELE MECHANICAL EQUIPMENT SALES ENGINEER CLOSING NOTES PT AWAKE AND ALERT STILL NON VERBAL BUT SHE RESPONSE USING HER HAND AND HEAD TO ANSWER YES OR NO. STABLE TROUGHOUT THE NIGHT AND NO SIGNS OF ANY ACUTE DISTRESS NOTED. TELE SR PER MONITOR. G-TUBE FEEDING TOLERATED WELL NO ASPIRATION NOTED. HUGHES DRAINING WELL . MORNING CARE DONE WELL WOUND TX. ALL DUE MEDS GIVEN . BLOOD SUGAR 161, 3 UNITS OF INSULIN GIVEN SONIA SQ ORDERED. KEPT HER WARM AND COMFORTABLE AT ALL TIMES. WILL ENDORSE TO AM NURSE FOR CONTINUITY OF CARE.
--- NOTE | 2020-05-27 08:00 | NUR ---
MS/RN OPENING NOTE RECEIVED PATIENT FROM TOXICOLOGIST NURSE. PATIENT IS AWAKE IN BED, A/O X1. PATIENT IN NO APPARENT DISTRESS. SAFETY MEASURES IN PLACE, BED LOCKED AND IN LOWEST POSITION, CALL LIGHT WITHIN REACH. WILL CONTINUE TO MONITOR AND ENSURE SAFETY.
[2020-05-27 08:06] VITALS: BP 146/89
[2020-05-27] MEDS: PROSOURCE / PROSTAT (PYXIS) 30 ML UDC NG SCH ×3 (10:59→16:19)
[2020-05-27] MEDS: PANTOPRAZOLE 40 MG/PACK PACK NG SCH (10:59)
[2020-05-27] MEDS: VORICONAZOLE 200 MG TABLET GT SCH ×2 (10:59→20:56)
[2020-05-27] MEDS: NEOMY SULF/BACITRAC ZN/POLY 15 GM TUBE TP SCH ×2 (11:00→16:19)
[2020-05-27] MEDS: ENOXAPARIN SODIUM 40 MG/0.4 ML DISP.SYRIN SQ SCH (11:02)
[2020-05-27 12:00] VITALS: BP 148/79
[2020-05-27] MEDS: CEFTRIAXONE 2 G in IV D5W 100 ML IV SCH (14:54)
[2020-05-27 15:00] LABS: CALCIUM, SERUM 8.7 mg/dL (8.5-10.1); CREATININE 0.4 mg/dL (0.6-1.3); POTASSIUM 3.1 mmol/L (3.5-5.1)
[2020-05-27 16:00] VITALS: BP 140/80
[2020-05-27] MEDS: ACETAMINOPHEN 650 MG/20.3 ML UDC NG PRN (18:43)
--- NOTE | 2020-05-27 19:00 | NUR ---
MS/RN CLOSING NOTE PATIENT AWAKE AND A/O X1 STABLE TROUGH OUT THE SHIFT AND NO SIGNS OF ANY ACUTE DISTRESS NOTED. G-TUBE FEEDING TOLERATED WELL NO ASPIRATION NOTED. HUGHES DRAINING WELL ALL DUE MEDS GIVEN. BLOOD SUGAR OBTAINED AND COVERED FOR WITH INSULIN PER MD ORDERS. WILL ENDORSE TO LACQUER COATER NURSE.
[2020-05-27 20:00] VITALS: BP_SYST 160; BP_DIAS 76; BP_DIAS 95
--- NOTE | 2020-05-27 20:00 | NUR ---
telemarketing sales representative opening note received patient in bed. a/ox1, able to point and nod head. on ventilator, josef#8. respirations are even and unlabored. no s/s resp distress noted. no s/s nor c/o ppain noted. external tele monitor reads sinus tach 104. in no apparent distress. iv access in HORTENCIA midline patent and saline locked. gtube is present, no residual, flushed with no resistance, running glucerna 1.2@50ml/hr. huff catheter is present, draining to gravity. bed is low and locked, hob elevated in semi fowlers, side rails up x3, call light within reach. on specialty mattress. will prepare for discharge. will continue to monitor throughout shift.
[2020-05-27] MEDS ORDERED: VORICONAZOLE 200 MG TABLET ONE (20:45)
--- NOTE | 2020-05-27 21:20 | NUR ---
telehealth case managerwire harness design engineer note patient is being discharged and transferred to [facility] subacute unit. patient is in stable condition. a/ox1, able to point and nod head. on ventilator, shiley#8. respirations are even and unlabored. no s/s resp distress noted. no s/s pain noted. external tele monitor reads sinus tach 104. no distress noted. patient maintained the HORTENCIA midline. photos have been taken. exit care completed, [facility] reviewed and all belongings present before going to subacute. vital signs temp 97.5 bp 160/76 hr 95 rr 21 88%. all meds and exit care given to Dona EPPS in subacute.
[2020-05-28] MEDS ORDERED: INSU100I26 SQ (08:52)
[2020-05-28] MEDS ORDERED: MORP15TA7 MT (08:52)
== END 2020-05-27 23:18 | DRG 5 ==
LOC: ER 19:12 → ICUOV2 23:04 → ICU 23:45 → TELE 05-15 12:31 → ICU 05-18 15:24 → TELE 05-19 14:06
PROVIDERS: ADMIT Student in an Organized Health Care Education/Training Program
PROC: 5A1955Z Respiratory Ventilation, Greater than 96 Consecutive Hours (ICD-10-PCS; 2020-04-18)
PROC: 0BH17EZ Insertion of Endotracheal Airway into Trachea, Via Natural or Artificial Opening (ICD-10-PCS; 2020-04-18)
PROC: 0B110F4 Bypass Trachea to Cutaneous with Tracheostomy Device, Open Approach (ICD-10-PCS; principal; 2020-04-19)
PROC: 02HV33Z Insertion of Infusion Device into Superior Vena Cava, Percutaneous Approach (ICD-10-PCS; 2020-04-19)
PROC: B548ZZA Ultrasonography of Superior Vena Cava, Guidance (ICD-10-PCS; 2020-04-19)
PROC: 30233N1 Transfusion of Nonautologous Red Blood Cells into Peripheral Vein, Percutaneous Approach (ICD-10-PCS; 2020-05-06)
PROC: 05HA33Z Insertion of Infusion Device into Left Brachial Vein, Percutaneous Approach (ICD-10-PCS; 2020-05-19)
PROC: 0DJ08ZZ Inspection of Upper Intestinal Tract, Via Natural or Artificial Opening Endoscopic (ICD-10-PCS; 2020-05-20)
DX: A41.89 Other specified sepsis (principal); J15.6 Pneumonia due to other Gram-negative bacteria; G92 Toxic encephalopathy; E11.10 Type 2 diabetes mellitus with ketoacidosis without coma; J15.9 Unspecified bacterial pneumonia; J96.01 Acute respiratory failure with hypoxia; J96.02 Acute respiratory failure with hypercapnia; N17.0 Acute kidney failure with tubular necrosis; D69.6 Thrombocytopenia, unspecified; K21.9 Gastro-esophageal reflux disease without esophagitis; R65.21 Severe sepsis with septic shock; E11.649 Type 2 diabetes mellitus with hypoglycemia without coma; Z79.4 Long term (current) use of insulin; Z20.822 Contact with and (suspected) exposure to COVID-19; G89.4 Chronic pain syndrome; F20.9 Schizophrenia, unspecified; F17.200 Nicotine dependence, unspecified, uncomplicated; D63.8 Anemia in other chronic diseases classified elsewhere; E83.42 Hypomagnesemia; I10 Essential (primary) hypertension; R45.851 Suicidal ideations; E86.9 Volume depletion, unspecified; M89.9 Disorder of bone, unspecified; R13.10 Dysphagia, unspecified; Y95 Nosocomial condition; I49.9 Cardiac arrhythmia, unspecified; K29.70 Gastritis, unspecified, without bleeding; D72.819 Decreased white blood cell count, unspecified; F15.23 Other stimulant dependence with withdrawal; E87.6 Hypokalemia; R56.9 Unspecified convulsions; G93.6 Cerebral edema; E87.0 Hyperosmolality and hypernatremia; B37.49 Other urogenital candidiasis
CPT/HCPCS: 31720; 36410; 36415; 36569; 36600; 43246; 70450-TC; 71045-TC; 76705-TC; 80048-TC; 80053-TC; 80061-TC; 80076-TC; 80202-TC; 81001; 82040-TC; 82140-TC; 82248-TC; 82533; 82550-TC; 82553; 82728-TC; 82785; 82803-TC; 82947-TC; 82962-TC; 83605-TC; 83615-TC; 83735-TC; 83880; 84100-TC; 84443-TC; 84478-TC; 84484-TC; 85025-TC; 85378-TC; 85385-TC; 85730-TC; 86140-TC; 86803; 86850-TC; 87040-TC; 87070-TC; 87081-TC; 87086-TC; 87102-TC; 87186-TC; 87806; 87899; 94002-TC; 94003-TC; 94640-TC; 94760-TC; 94762-TC; 94799-TC; 99082-TC; A4216; A4623; A6253; A6403; A7526; A9563; C1751; C9113; C9803; G0378; G0480; J0456; J0690; J0696; J1165; J1630; J1650; J1815; J1940; J2001; J2060; J2185; J2250; J2370; J2543; J2704; J2765; J3010; J3370; J3465; J3475; J3480; J3490; J7030; J7040; J7042; J7050; J7060; P9016-BL; P9047; Q9967; U0003

== ENCOUNTER 2020-05-27 15:26 | Inpatient (IN) | payer OTHER ==
[~2020-05-27] VITALS: Ht 160 cm; Wt 56.2 kg
[~2020-05-27 15:26] MED LIST changes: +AMIT50TA3 PO; +AMLO-212 PO; +AMYL1CAP56 PO; -ATOR10TA PO; -CEPH250C PO; -CLON0.2T PO; -FLUV50TA10 PO; -INSU100V27 SQ; -INSU100V7 SQ; +Insulin Glargine,Hum SQ; -MELO-107 PO; -MORP15TA PO; +ONDA-97 PO; +OXYC1TAB12 PO; -OXYC5CAP18 PO; +PANT40TA49 PO; -PROP20TA7 PO; +PROP40TA7 PO; -QUET25TA PO; +REPA0.5T6 PO; -SUCR1TAB PO; +TEMA15CA PO; -TRAZ-182 PO; -TRAZ-252 PO
[2020-05-27 21:20] VITALS: BP 138/77
--- NOTE | 2020-05-27 22:00 | NUR ---
Patient 64 years old female admitted from Telemetry under the care of Dr. Qureshi. Diagnosis respiratory failure ,vent dependent, tracheostomy, PEG,Diabetes,hypertension,pneumonia,GERD and anemia.Patient is alert and oriented x 3. Vent setting SIMV 6, TV 400,Fio2 30%,Peep +5 PS 15. With huff catheter [id number] for wound management. Patient with sacral wound and perianal excoriation,treatment initiated and wound consult ordered. Dr. Qureshi notified of admission with orders to continue medications from acute side.Kept patient clean and comfortable. Call light within reach at all times. Left voicemail to daughter Adan Andrew regarding admission to sub acute.Will continue to monitor.
[2020-05-27] MEDS: BLOOD SUGAR DIAGNOSTIC 1 EACH STRIP IN SCH (23:18)
[2020-05-27] MEDS: INSULIN REGULAR, HUMAN 100 UNIT/ML 3 ML VIAL SQ SCH (23:19)
[2020-05-27] MEDS ORDERED: ACETAMINOPHEN 650 MG/20.3 ML UDC GT PRN (23:30)
[2020-05-28 00:32] VITALS: BP 132/65
[2020-05-28 05:10] VITALS: BP 148/79
[2020-05-28] MEDS: INSULIN REGULAR, HUMAN 100 UNIT/ML 3 ML VIAL SQ SCH (05:45)
[2020-05-28] MEDS: BLOOD SUGAR DIAGNOSTIC 1 EACH STRIP IN SCH ×4 (05:45→23:58)
[2020-05-28] MEDS ORDERED: MAGNESIUM HYDROXIDE 30 ML UDC GT PRN (07:30)
[2020-05-28] MEDS ORDERED: ACETAMINOPHEN 650 MG/20 ML UDC- SA PATIENTS-FEVER ONLY GT PRN (07:30)
[2020-05-28] MEDS: IPRATROPIUM NEB FS 0.5 MG/2.5 ML AMPUL.NEB NEB SCH ×3 (07:33→20:05)
[2020-05-28] MEDS: ALBUTEROL FS 2.5 MG/0.5 ML VIAL.NEB NEB SCH ×3 (07:33→20:05)
[2020-05-28] MEDS ORDERED: DEXTROSE 50%-WATER 50 ML DISP.SYRIN IV PRN (08:00)
[2020-05-28] MEDS ORDERED: INSULIN REGULAR, HUMAN 100 UNIT/ML 3 ML VIAL SQ PRN (08:00)
[2020-05-28] MEDS ORDERED: HYDROGEN PEROXIDE 480 ML BOTTLE TP PRN (08:00)
[2020-05-28] MEDS ORDERED: hydrALAZINE HCL 10 MG TABLET GT PRN (08:00)
[2020-05-28] MEDS ORDERED: IPRATROPIUM NEB FS 0.5 MG/2.5 ML AMPUL.NEB IH PRN (08:00)
[2020-05-28] MEDS ORDERED: ALBUTEROL FS 2.5 MG/0.5 ML VIAL.NEB NEB PRN (08:00)
[2020-05-28] MEDS ORDERED: DOSE PER PHARMACY VORIconazole/VFEND XX PRN (08:00)
[2020-05-28 08:30] VITALS: BP 160/90
[2020-05-28] MEDS: PROSOURCE / PROSTAT (PYXIS) 30 ML UDC GT SCH ×3 (08:43→17:28)
[2020-05-28] MEDS: PANTOPRAZOLE 40 MG/PACK PACK GT SCH (08:43)
[2020-05-28] MEDS: VORICONAZOLE 200 MG TABLET GT SCH ×2 (08:43→21:50)
[2020-05-28] MEDS ORDERED: INSU100I26 SQ (08:52)
[2020-05-28] MEDS ORDERED: MORP15TA7 MT (08:52)
[2020-05-28] MEDS: HYDROGEL DRESSING 90 GM TUBE TP SCH ×2 (09:00→21:50)
[2020-05-28] MEDS: HYDROGEN PEROXIDE 480 ML BOTTLE TP SCH ×2 (09:00→20:05)
[2020-05-28] MEDS: Z GUARD REMEDY 4 OZ OINT TP SCH ×3 (09:00→21:51)
--- NOTE | 2020-05-28 09:12 | NUR ---
WOUND CARE CONSULT: PT SEEN FOR SKIN ASSESSMENT AND NOTED TO HAVE STAGE 3 ULCER TO SACRUM WITH PERIWOUND RASH AND PEELING SKIN, PRESENT ON ADMISSION. PT ALSO NOTED TO HAVE HEALED AREA OF SKIN TO RT ANTERIOR THIGH AND TO LEFT EAR, PRESENT ON ADMISSION. RECOMMENDATIONS MADE FOR SKIN PROTECTION AND WOUND CARE. DISCUSSED WITH NURSING STAFF. SURGICAL CONSULT MADE TO DR POLLARD FOR SACRAL WOUND. MD IN AGREEMENT WITH PLAN OF CARE. Addendum: 05/28/20 at 0918 by LEISA BIGGSU SACRAL WOUND MEASURES 2CM X 1CM X 0.2CM AND IS MOSTLY PINK IN COLOR WITH SCANT AMOUNT OF YELLOW, SCANT PINK DRAINAGE, NO ODOR WITH PERIWOUND RASH NOTED.
[2020-05-28] MEDS: HYDROCODONE/APAP 5/325MG TABLET GT PRN ×2 (09:27→19:21)
[2020-05-28] MEDS: ENOXAPARIN SODIUM 40 MG/0.4 ML DISP.SYRIN SQ SCH (09:27)
[2020-05-28] MEDS ORDERED: TUBERCULIN,PURIF.PROT.DERIV. 5 TU/0.1 ML VIAL ID SCH (10:00)
--- NOTE | 2020-05-28 10:23 | NUR ---
Called daughter, Adan Andrew, and went over Sub Acute Baseline Resident Care Plan form. Verbalized understanding and very thankful that given the pandemic hospital situation her mom has a place to stay where she is being cared for.
--- NOTE | 2020-05-28 12:30 | NUR ---
IDT done today, reviewed paperwork and reconciled home meds with Dr. Gordon.
[2020-05-28] MEDS: METOCLOPRAMIDE HCL 10 MG TABLET GT SCH ×2 (12:40→21:50)
[2020-05-28] MEDS: CLOTRIMAZOLE 1% 15 GM TUBE TP SCH ×6 (12:40→21:51)
[2020-05-28] MEDS: INSULIN REGULAR, HUMAN 100 UNIT/ML 3 ML VIAL SQ PRN ×3 (12:48→23:59)
[2020-05-28 13:08] VITALS: BP 142/78
--- NOTE | 2020-05-28 14:19 | NUR ---
Intake Paperwork: SW called the patients daughter, Adan Andrew [phone] on 05/28/2020 and reviewed the intake paperwork: (Patient Right's Acknowledgement, Documentation of Preferred Intensity of Care, Conditions of Admission, and Voluntary Prior Express Consent form). Adan expressed understanding and was agreeable reviewing intake paperwork with SW over the phone and providing a wet signature when paperwork arrives via mail, to observe visitation restrictions set in place by [facility] due to Coronavirus Pandemic. This SW addressed all of the familys questions. Adan stated that the intensity of care provided to the pt. should be Maximum Treatment and CPR until she speaks to Dr. Qureshi and has a prognosis. SW notified charge Nurse Krissy who stated she will notify . SW mailed intake paperwork to: Adan Andrew [[id number] [facility] [id number]] along with a copy of the Bill of Rights, for Adan to read over and sign. SW provided Adan with a pre-paid envelope. SW will wait for paperwork to be completed and mailed back by Adan. SW will follow up as needed to assist the family with completing intake paperwork.
--- NOTE | 2020-05-28 14:27 | NUR ---
Facility Update: AZEB informed pt.s family, Adan Andrew [phone] via [employer] that no [facility] residents or employees tested positive for COVID-19 this week. AZEB informed family that as recommended by [facility], all Sub-Acute residents & staff will continue receiving response testing. [facility] continues to follow infection control protocols and screen our residents and staff daily for symptoms.
--- NOTE | 2020-05-28 16:00 | NUR ---
Got consent for Temazepam from daughter Adan.
[2020-05-28] MEDS: GLUCERNA 1.2 1,000 ML BOTTLE NG PRN (17:28)
--- NOTE | 2020-05-28 18:55 | NUR ---
Got a message from Dr. Qureshi that he spoke with the daughter Adan regarding patient's code status, he said to keep patient on DNR but all other treatments will be done. Called daughter Adan Placement Officer to confirm the code status of patient, she confirmed the DNR status, witnessed by RN Dona Wiggins
[2020-05-28] MEDS ORDERED: TEMAZEPAM 15 MG CAPSULE GT PRN (19:00)
--- NOTE | 2020-05-28 19:53 | NUR ---
Dr. Gordon gave order and consent to administer Temazepam 15 mg q HS PRN for insomnia M/B inability to sleep.
[2020-05-28 20:10] VITALS: BP 142/80
[2020-05-28] MEDS: VITAMINS A AND D 56.7 GM TUBE TP SCH (21:51)
[2020-05-28] MEDS: INSULIN GLARGINE, 100 UNIT/ML CARTRIDGE SQ SCH (21:52)
[2020-05-28] MEDS: THERAHONEY GEL 1.5 OZ TUBE TP SCH (21:52)
[2020-05-28] MEDS: TEMAZEPAM 15 MG CAPSULE GT PRN (23:58)
[2020-05-29 00:18] VITALS: BP 143/83
[2020-05-29] MEDS: ALBUTEROL FS 2.5 MG/0.5 ML VIAL.NEB NEB SCH ×4 (03:10→19:25)
[2020-05-29] MEDS: IPRATROPIUM NEB FS 0.5 MG/2.5 ML AMPUL.NEB NEB SCH ×4 (03:10→19:25)
[2020-05-29 04:59] VITALS: BP 122/76
[2020-05-29] MEDS: METOCLOPRAMIDE HCL 10 MG TABLET GT SCH ×3 (05:29→21:47)
[2020-05-29] MEDS: BLOOD SUGAR DIAGNOSTIC 1 EACH STRIP IN SCH ×3 (05:29→18:00)
[2020-05-29] MEDS: HYDROCODONE/APAP 5/325MG TABLET GT PRN ×2 (05:31→08:52)
[2020-05-29] MEDS: INSULIN REGULAR, HUMAN 100 UNIT/ML 3 ML VIAL SQ PRN ×2 (05:32→12:50)
--- NOTE | 2020-05-29 06:33 | NUR ---
PATIENT RECEIVED ON TRACH TO VENT WITH SETTINGS OF SIMV 6, 400 Vt, 30%, +5, PS 15. SUCTIONED FOR MINIMAL, THICK, WHITE SECRETIONS. GIVEN IN-LINE TREATMENTS WITH NO ADVERSE REACTIONS. AMBU BAG AT BEDSIDE. VENT ALARM AUDIBLE AND VISIBLE. VENT PLUGGED INTO RED OUTLET. Addendum: 05/29/20 at 0634 by ABIGAIL DAMON RT Amended: Links added.
[2020-05-29 08:03] VITALS: BP 133/75
[2020-05-29] MEDS: LOSARTAN POTASSIUM 50 MG TABLET GT SCH (08:43)
[2020-05-29] MEDS: PROSOURCE / PROSTAT (PYXIS) 30 ML UDC GT SCH ×3 (08:44→17:00)
[2020-05-29] MEDS: PROPRANOLOL HCL 40 MG TABLET GT SCH (08:44)
[2020-05-29] MEDS: AMLODIPINE BESYLATE 5 MG TABLET GT SCH (08:44)
[2020-05-29] MEDS: PANTOPRAZOLE 40 MG/PACK PACK GT SCH (08:44)
[2020-05-29] MEDS: AMITRIPTYLINE HCL 25 MG TABLET GT SCH (08:44)
[2020-05-29] MEDS: VORICONAZOLE 200 MG TABLET GT SCH ×2 (08:45→21:47)
[2020-05-29] MEDS: ENOXAPARIN SODIUM 40 MG/0.4 ML DISP.SYRIN SQ SCH (08:46)
[2020-05-29] MEDS: CLOTRIMAZOLE 1% 15 GM TUBE TP SCH ×6 (08:46→21:48)
[2020-05-29] MEDS: HYDROGEL DRESSING 90 GM TUBE TP SCH ×2 (08:46→21:48)
[2020-05-29] MEDS: VITAMINS A AND D 56.7 GM TUBE TP SCH ×2 (08:46→21:48)
[2020-05-29] MEDS: Z GUARD REMEDY 4 OZ OINT TP SCH ×4 (08:46→21:48)
[2020-05-29] MEDS: THERAHONEY GEL 1.5 OZ TUBE TP SCH (08:46)
[2020-05-29] MEDS ORDERED: AMITRIPTYLINE HCL 50 MG TABLET GT SCH (09:00)
[2020-05-29] MEDS: HYDROGEN PEROXIDE 480 ML BOTTLE TP SCH ×2 (09:16→21:00)
[2020-05-29 20:27] VITALS: BP 120/74
[2020-05-29] MEDS: TEMAZEPAM 15 MG CAPSULE GT PRN (21:49)
[2020-05-29] MEDS: INSULIN GLARGINE, 100 UNIT/ML CARTRIDGE SQ SCH (21:49)
[2020-05-29] MEDS: GLUCERNA 1.2 1,000 ML BOTTLE NG PRN (22:05)
[2020-05-30] MEDS: BLOOD SUGAR DIAGNOSTIC 1 EACH STRIP IN SCH ×4 (00:06→17:52)
[2020-05-30] MEDS: INSULIN REGULAR, HUMAN 100 UNIT/ML 3 ML VIAL SQ PRN ×4 (00:12→17:53)
[2020-05-30] MEDS: IPRATROPIUM NEB FS 0.5 MG/2.5 ML AMPUL.NEB NEB SCH ×4 (01:34→19:36)
[2020-05-30] MEDS: ALBUTEROL FS 2.5 MG/0.5 ML VIAL.NEB NEB SCH ×4 (01:34→19:36)
[2020-05-30 04:57] VITALS: BP 113/73
[2020-05-30] MEDS: METOCLOPRAMIDE HCL 10 MG TABLET GT SCH ×3 (05:44→20:08)
[2020-05-30] MEDS: LOSARTAN POTASSIUM 50 MG TABLET GT SCH (09:00)
[2020-05-30] MEDS: CLOTRIMAZOLE 1% 15 GM TUBE TP SCH ×6 (09:00→20:08)
[2020-05-30] MEDS: ENOXAPARIN SODIUM 40 MG/0.4 ML DISP.SYRIN SQ SCH (09:00)
[2020-05-30] MEDS: PROSOURCE / PROSTAT (PYXIS) 30 ML UDC GT SCH ×3 (09:00→17:17)
[2020-05-30] MEDS: VITAMINS A AND D 56.7 GM TUBE TP SCH ×2 (09:00→20:09)
[2020-05-30] MEDS: Z GUARD REMEDY 4 OZ OINT TP SCH ×4 (09:00→20:09)
[2020-05-30] MEDS: VORICONAZOLE 200 MG TABLET GT SCH ×2 (09:00→20:08)
[2020-05-30] MEDS: THERAHONEY GEL 1.5 OZ TUBE TP SCH (09:00)
[2020-05-30] MEDS: AMITRIPTYLINE HCL 25 MG TABLET GT SCH (09:00)
[2020-05-30] MEDS: PANTOPRAZOLE 40 MG/PACK PACK GT SCH (09:00)
[2020-05-30] MEDS: PROPRANOLOL HCL 40 MG TABLET GT SCH (09:00)
[2020-05-30] MEDS: HYDROGEL DRESSING 90 GM TUBE TP SCH ×2 (09:00→20:08)
[2020-05-30] MEDS: HYDROGEN PEROXIDE 480 ML BOTTLE TP SCH ×2 (09:00→19:36)
[2020-05-30] MEDS: AMLODIPINE BESYLATE 5 MG TABLET GT SCH (09:00)
[2020-05-30 11:23] VITALS: BP 128/83
[2020-05-30] MEDS: GLUCERNA 1.2 1,000 ML BOTTLE NG PRN (15:43)
[2020-05-30] MEDS: CREON GT SCH (17:17)
[2020-05-30 20:07] VITALS: BP 127/71
[2020-05-30] MEDS: BASAGLAR KWIKPEN SQ SCH (21:10)
[2020-05-31] MEDS: BLOOD SUGAR DIAGNOSTIC 1 EACH STRIP IN SCH ×4 (00:04→18:04)
[2020-05-31] MEDS: INSULIN REGULAR, HUMAN 100 UNIT/ML 3 ML VIAL SQ PRN ×4 (00:07→18:04)
[2020-05-31 00:20] VITALS: BP 134/85
[2020-05-31] MEDS: IPRATROPIUM NEB FS 0.5 MG/2.5 ML AMPUL.NEB NEB SCH ×4 (01:27→19:26)
[2020-05-31] MEDS: ALBUTEROL FS 2.5 MG/0.5 ML VIAL.NEB NEB SCH ×4 (01:27→19:26)
[2020-05-31] MEDS: METOCLOPRAMIDE HCL 10 MG TABLET GT SCH ×3 (05:22→21:19)
[2020-05-31 07:56] VITALS: BP 157/89
[2020-05-31 08:19] LABS: CALCIUM, SERUM 8.9 mg/dL (8.5-10.1); CREATININE 0.5 mg/dL (0.6-1.3); POTASSIUM 3.9 mmol/L (3.5-5.1)
[2020-05-31] MEDS: THERAHONEY GEL 1.5 OZ TUBE TP SCH (09:00)
[2020-05-31] MEDS ORDERED: OMEPRAZOLE 20 MG CAPSULE.DR GT SCH (09:00)
[2020-05-31] MEDS: LOSARTAN POTASSIUM 50 MG TABLET GT SCH (09:20)
[2020-05-31] MEDS: AMITRIPTYLINE HCL 25 MG TABLET GT SCH (09:20)
[2020-05-31] MEDS: CREON GT SCH ×3 (09:21→17:50)
[2020-05-31] MEDS: VORICONAZOLE 200 MG TABLET GT SCH (09:21)
[2020-05-31] MEDS: AMLODIPINE BESYLATE 5 MG TABLET GT SCH (09:21)
[2020-05-31] MEDS: PROSOURCE / PROSTAT (PYXIS) 30 ML UDC GT SCH ×3 (09:21→17:50)
[2020-05-31] MEDS: PROPRANOLOL HCL 40 MG TABLET GT SCH (09:21)
[2020-05-31] MEDS: ENOXAPARIN SODIUM 40 MG/0.4 ML DISP.SYRIN SQ SCH (09:22)
[2020-05-31] MEDS: HYDROGEN PEROXIDE 480 ML BOTTLE TP SCH ×2 (09:46→19:26)
[2020-05-31] MEDS: HYDROGEL DRESSING 90 GM TUBE TP SCH ×2 (10:30→21:19)
[2020-05-31] MEDS: CLOTRIMAZOLE 1% 15 GM TUBE TP SCH ×6 (10:30→21:19)
[2020-05-31] MEDS: Z GUARD REMEDY 4 OZ OINT TP SCH ×4 (10:30→21:20)
[2020-05-31] MEDS: VITAMINS A AND D 56.7 GM TUBE TP SCH ×2 (10:30→21:20)
[2020-05-31 12:10] VITALS: BP 120/72
[2020-05-31 12:20] VITALS: BP 145/80
--- NOTE | 2020-05-31 12:35 | NUR ---
Dr Munson ordered to DC Voriconazole. Notified
--- NOTE | 2020-05-31 12:40 | NUR ---
Late Entry for 05/28/2020: INTERDISCIPLINARY PLAN OF CARE CONFERENCE took place today. The patients Daughter, Adan Andrew [phone] did not participate via phone conference. Charge Nurse discussed pt. admission on 05/27/2020 and reconciled home medications with Dr. Gordon. Dr. Gordon and Interdisciplinary team discussed the plan of care in detail. Current orders as well as treatments and medications were reviewed. See other disciplines IDT notes for further details.
[2020-05-31] MEDS: HYDROCODONE/APAP 5/325MG TABLET GT PRN (12:41)
[2020-05-31] MEDS: GLUCERNA 1.2 1,000 ML BOTTLE NG PRN (16:20)
--- NOTE | 2020-05-31 17:00 | NUR ---
Clarified pt's left buttock excoriation order. Pt does not have left buttock excoriation, instead she has a right buttock open skin. Received order to apply Z-guard cream q shift and PRN for 14 days.
--- NOTE | 2020-05-31 17:10 | NUR ---
Clarified sacral wound treatment with DON Trinidad. Pt has orders to apply Therahoney as well as Hydrogel to sacral wound. DON Trinidad ordered to DC Therahoney order and said she will do sacral wound debridement on 06/03/20. Notified pt's daughter Adan. She agreed to plan.
[2020-05-31 18:51] VITALS: BP 128/72
--- NOTE | 2020-05-31 19:04 | NUR ---
Seen by CHRISTINA Adams. She ordered to have ST evaluate pt for PMV use and swallowing.
[2020-05-31 20:13] VITALS: BP 124/72
[2020-05-31] MEDS: BASAGLAR KWIKPEN SQ SCH (21:20)
[2020-06-01] MEDS: BLOOD SUGAR DIAGNOSTIC 1 EACH STRIP IN SCH ×4 (00:07→17:42)
[2020-06-01] MEDS: INSULIN REGULAR, HUMAN 100 UNIT/ML 3 ML VIAL SQ PRN ×4 (00:08→17:42)
[2020-06-01 00:11] VITALS: BP 136/80
[2020-06-01] MEDS: IPRATROPIUM NEB FS 0.5 MG/2.5 ML AMPUL.NEB NEB SCH ×4 (02:16→19:30)
[2020-06-01] MEDS: ALBUTEROL FS 2.5 MG/0.5 ML VIAL.NEB NEB SCH ×4 (02:16→20:31)
[2020-06-01] MEDS: METOCLOPRAMIDE HCL 10 MG TABLET GT SCH ×3 (05:38→20:39)
[2020-06-01] MEDS: OMEPRAZOLE 20 MG CAPSULE.DR GT SCH (05:38)
[2020-06-01 08:25] VITALS: BP 132/82
[2020-06-01] MEDS: HYDROGEN PEROXIDE 480 ML BOTTLE TP SCH ×2 (09:00→20:31)
[2020-06-01] MEDS: CREON GT SCH ×3 (09:47→16:53)
[2020-06-01] MEDS: AMLODIPINE BESYLATE 5 MG TABLET GT SCH (09:47)
[2020-06-01] MEDS: LOSARTAN POTASSIUM 50 MG TABLET GT SCH (09:47)
[2020-06-01] MEDS: PROPRANOLOL HCL 40 MG TABLET GT SCH (09:47)
[2020-06-01] MEDS: AMITRIPTYLINE HCL 25 MG TABLET GT SCH (09:47)
[2020-06-01] MEDS: PROSOURCE / PROSTAT (PYXIS) 30 ML UDC GT SCH ×3 (09:47→16:53)
[2020-06-01] MEDS: CLOTRIMAZOLE 1% 15 GM TUBE TP SCH ×6 (09:48→20:39)
[2020-06-01] MEDS: ENOXAPARIN SODIUM 40 MG/0.4 ML DISP.SYRIN SQ SCH (09:48)
[2020-06-01] MEDS: HYDROGEL DRESSING 90 GM TUBE TP SCH ×2 (09:48→20:39)
[2020-06-01] MEDS: Z GUARD REMEDY 4 OZ OINT TP SCH ×4 (09:48→20:40)
[2020-06-01] MEDS: VITAMINS A AND D 56.7 GM TUBE TP SCH ×2 (09:49→20:40)
--- NOTE | 2020-06-01 10:43 | NUR ---
Seen by Dr Qureshi. Pt appears to be having SOB, RT administering breathing treatment, no desaturation. Pt appears anxious. Dr Qureshi ordered for pt to have physical therapy.
--- NOTE | 2020-06-01 11:49 | NUR ---
Spoke with pt's daughter Adan. She gave consent for the Covid-19 vaccine. Informed her that she can get more information about the vaccine from the CDC website. Also informed her of ST and PT eval orders.
[2020-06-01 14:13] VITALS: BP 140/86
--- NOTE | 2020-06-01 14:55 | NUR ---
Pt having SOB, O2 sat 98-99%. Pt appears anxious. CAR PINCHER Rebecca Adams ordered an ABG and to give her something for anxiety.
--- NOTE | 2020-06-01 15:30 | NUR ---
Notified CHRISTINA Adams that RTs are still trying to get an ABG. Pt complained of abdominal pain. Abdomen soft and non-distended. Checked for gastric residuals and was able to release gas. When asked if pt felt better, she gestured yes but still has some pain. No gastric residual noted. Administered Maalox as ordered. Addendum: 06/01/20 at 1608 by HARSH JONES RN Informed CHRISTINA Adams that pt does not have any PRN medication for anxiety
[2020-06-01] MEDS: MAG HYDROX/AL HYDROX/SIMETH 30 ML UDC GT PRN (15:49)
[2020-06-01 15:53] LABS: ABG BASE EXCESS 2.9 mmol/L; ABG OXYGEN SATURATION 99.5 % (92.0-98.5); ABG PCO2 42.4 mmHg (35.0-45.0); ABG PO2 306.8 mmHg (75.0-100.0); COHb 0.3 % (0.5-1.5); MetHb 0.2 % (0.0-1.5); PEEP,BG 5 cm H2O; SITE, ABG Right Radial; VENT MODE, BG SIMV 6 / PS 15; VT, ABG 400 mL
--- NOTE | 2020-06-01 16:05 | NUR ---
Relayed ABG result to TIMBER ROBBER Rebecca Adams. Informed her that pO2 is high because pt was on a breathing treatment while ABG was being drawn. Also informed her of pt's complaint of abdominal pain and Maalox was given. Pt's SOB has improved. No new order.
--- NOTE | 2020-06-01 16:51 | NUR ---
Pt's daughter sent her a basket with a blanket, pictures, and personal items. Pt was asked several times if she wanted charge nurse to open the basket for her, but she repeatedly refused. Charge nurse showed her some of the items in the basket (basket had a transparent cover), but pt repeatedly refused to open it. Informed pt's daughter and she said to tell the pt that there is a 10-foot cable for her iPad in the basket. Charge nurse came back to pt's room, found pt taking deep breaths and slowly breathing out through her mouth. Pt's daughter has mentioned that pt has some episodes of anxiety. Informed pt about the iPad cable in the basket and she agreed to get it from there. Charge nurse connected the cable for her, and also gave her the notes that her family wrote for her as well as her eyeglasses. Pt read the notes and gave it back to the charge nurse. She refused to get anything else from the basket and wanted charge nurse to close the basket again. When charge nurse handed the iPad to her, pt's breathing improved. Pt appeared calm. She played some music on her iPad. Pt's daughter said that her mother used to say that the TV is a stress rabbit dresser for her and wants the TV on all the time. Pt's TV has been on throughout the day. Informed pt's daughter of pt's episode of SOB, ABG result, abdominal pain and interventions done for pt. Daughter expressed appreciation.
[2020-06-01 20:41] VITALS: BP 127/75
[2020-06-01] MEDS: BASAGLAR KWIKPEN SQ SCH (21:06)
[2020-06-02] MEDS: BLOOD SUGAR DIAGNOSTIC 1 EACH STRIP IN SCH ×4 (00:02→17:01)
[2020-06-02] MEDS: INSULIN REGULAR, HUMAN 100 UNIT/ML 3 ML VIAL SQ PRN ×4 (00:05→17:29)
--- NOTE | 2020-06-02 02:00 | NUR ---
RN NOTES Covid-19 test done and sent to lab.
[2020-06-02] MEDS: ALBUTEROL FS 2.5 MG/0.5 ML VIAL.NEB NEB SCH ×4 (02:05→19:38)
[2020-06-02] MEDS: IPRATROPIUM NEB FS 0.5 MG/2.5 ML AMPUL.NEB NEB SCH ×4 (02:05→19:38)
[2020-06-02] MEDS: OMEPRAZOLE 20 MG CAPSULE.DR GT SCH (05:12)
[2020-06-02] MEDS: METOCLOPRAMIDE HCL 10 MG TABLET GT SCH ×3 (05:12→21:40)
[2020-06-02 08:19] VITALS: BP 156/91
[2020-06-02] MEDS: ENOXAPARIN SODIUM 40 MG/0.4 ML DISP.SYRIN SQ SCH (09:00)
[2020-06-02] MEDS: PROPRANOLOL HCL 40 MG TABLET GT SCH (09:15)
[2020-06-02] MEDS: LOSARTAN POTASSIUM 50 MG TABLET GT SCH (09:15)
[2020-06-02] MEDS: AMITRIPTYLINE HCL 25 MG TABLET GT SCH (09:15)
[2020-06-02] MEDS: CLOTRIMAZOLE 1% 15 GM TUBE TP SCH ×6 (09:16→21:41)
[2020-06-02] MEDS: AMLODIPINE BESYLATE 5 MG TABLET GT SCH (09:16)
[2020-06-02] MEDS: Z GUARD REMEDY 4 OZ OINT TP SCH ×4 (09:16→21:41)
[2020-06-02] MEDS: PROSOURCE / PROSTAT (PYXIS) 30 ML UDC GT SCH ×3 (09:16→16:57)
[2020-06-02] MEDS: HYDROGEL DRESSING 90 GM TUBE TP SCH ×2 (09:16→21:40)
[2020-06-02] MEDS: VITAMINS A AND D 56.7 GM TUBE TP SCH ×2 (09:16→21:41)
[2020-06-02] MEDS: CREON GT SCH ×3 (09:16→16:57)
[2020-06-02] MEDS: HYDROCODONE/APAP 5/325MG TABLET GT PRN (09:17)
--- NOTE | 2020-06-02 10:03 | NUR ---
FACILITY UPDATE: AZEB called the pt.'s daughter, Adan P. [phone] and informed her that "[facility] Sub-Acute employee has tested positive for COVID-19 this week. All Sub-Acute residents and staff are getting response testing for COVID-19, per [facility] guidelines. [facility] continues to follow infection control protocols and screen our residents and staff daily for symptoms.". SW will be available to support families as needed.
--- NOTE | 2020-06-02 11:20 | NUR ---
Notified Dr. Gordon, resident unable to tolerate CPAP, PS 15, Peep 5, Fi02 30% with increase WOB, RR 40, HR 139, BP 153/85, 96%, 98.2. RT put her back on her previous vent setting of SIMV 6, PS 15, Peep 5, but still breathing high at 36-40. Dr. Gordon ordered to change vent setting to AC 12, TV 550, Peep 5, F102 40%. RT informed.
--- NOTE | 2020-06-02 13:50 | NUR ---
Resident is calm, asleep at this time, HR 101, RR 12, Fi02 99%. Dr. Gordon informed. Resident's daughter Adan notified of resident's condition and made aware that patient did not tolerate weaning and changed vent setting to AC. Adan also made aware that patient expressed earlier that she wants to gesturing her hand across her throat. Adan asked whether patient is taking any medication for her behavior as she believes she does. Informed her that she does not have any order but will monitor patient's behavior and will notify attending MD for psyche consult. Appreciated the call.
--- NOTE | 2020-06-02 14:25 | NUR ---
AZEB emailed the pt.'s daughter, Adan del the Moderna Vaccine Factsheet for families/caregiver, along with Bill of Rights, and information on Conservatorship & Advanced Healthcare Directive. SW will be available as needed.
[2020-06-02] MEDS: GLUCERNA 1.2 1,000 ML BOTTLE NG PRN (14:30)
--- NOTE | 2020-06-02 16:20 | NUR ---
Patient Check-in: AZEB met with pt. at bedside. Pt. is alert & oriented x3. Pt. not oriented to situation. SW asked pt. how she is doing. Pt. gestured thumbs down. Pt. appears depressed with flat affect. SW encouraged pt. to verbalize her mood. Pt. mouthed, I feel sad. SW validated her feelings of sadness as understandable given her situation. Pt. stated she has a Hx. of depression and has taken medication in the past to manage symptoms of depression. Pt. could not provide medication name. AZEB asked pt. if she would like to be seen by a psychiatrist. Pt. nodded yes. AZEB offered pt. to do Zoom call with her daughter, Adan. Pt. refused. AZEB informed pt. that her daughter sent her a get well basket. Pt. stated she does not want to open it. Pt. lacks motivation. Pt. denies SI/HI and denies hallucinations. Pt. has fair insight & judgment. AZEB will continue to monitor pt.s mood and provide clinical intervention through active listening in individual therapy 2x per week or as needed. AZEB informed charge nurseEpifanio who will follow up with psych consult referral.
--- NOTE | 2020-06-02 16:50 | NUR ---
Per SSD patient verbalized she has history of depression. Patient stated her mood is sad, appears depressed with flat affect. Notified Dr. Qureshi of above with new order for psyche consult. Dr. Qureshi also in agreement with dietary recommendations to increase GT feeding rate to 65 cc/hr. Patient with Stage 3 sacral wound and calorie intake should be increased. Left a message to Adan, daughter regarding new order.
[2020-06-02] MEDS: HYDROGEN PEROXIDE 480 ML BOTTLE TP SCH (19:38)
[2020-06-02 20:29] VITALS: BP 146/87
[2020-06-02] MEDS: BASAGLAR KWIKPEN SQ SCH (21:42)
[2020-06-02] MEDS: TEMAZEPAM 15 MG CAPSULE GT PRN (22:42)
[2020-06-03] MEDS: BLOOD SUGAR DIAGNOSTIC 1 EACH STRIP IN SCH ×5 (00:10→23:47)
[2020-06-03] MEDS: INSULIN REGULAR, HUMAN 100 UNIT/ML 3 ML VIAL SQ PRN ×4 (00:12→23:50)
[2020-06-03 00:15] VITALS: BP 112/71
[2020-06-03 00:39] VITALS: BP 112/71
[2020-06-03] MEDS: ALBUTEROL FS 2.5 MG/0.5 ML VIAL.NEB NEB SCH ×4 (00:57→19:58)
[2020-06-03] MEDS: IPRATROPIUM NEB FS 0.5 MG/2.5 ML AMPUL.NEB NEB SCH ×4 (00:57→19:58)
[2020-06-03] MEDS: HYDROCODONE/APAP 5/325MG TABLET GT PRN ×2 (01:59→13:42)
--- NOTE | 2020-06-03 02:30 | NUR ---
Received call from lab patient Covid 19 test result negative.
[2020-06-03] MEDS: OMEPRAZOLE 20 MG CAPSULE.DR GT SCH (05:43)
[2020-06-03] MEDS: GLUCERNA 1.2 1,000 ML BOTTLE NG PRN ×2 (05:43→19:24)
[2020-06-03] MEDS: METOCLOPRAMIDE HCL 10 MG TABLET GT SCH ×3 (05:43→21:38)
--- NOTE | 2020-06-03 05:48 | NUR ---
Patient denies any thoughts of hurting herself. Patient allowed the nurse to comb her hair and put it up.Patient given Restoril and Custer last night. Patient slept intermittently. No respiratory distress noted. Will continue to monitor.
[2020-06-03 06:09] VITALS: BP 130/73
[2020-06-03 08:06] VITALS: BP 140/89
[2020-06-03] MEDS: PROPRANOLOL HCL 40 MG TABLET GT SCH (09:00)
[2020-06-03] MEDS: ENOXAPARIN SODIUM 40 MG/0.4 ML DISP.SYRIN SQ SCH (09:00)
[2020-06-03] MEDS: HYDROGEN PEROXIDE 480 ML BOTTLE TP SCH ×2 (09:00→19:58)
[2020-06-03] MEDS: PROSOURCE / PROSTAT (PYXIS) 30 ML UDC GT SCH ×3 (09:00→17:59)
[2020-06-03] MEDS: VITAMINS A AND D 56.7 GM TUBE TP SCH ×2 (09:00→21:38)
[2020-06-03] MEDS: HYDROGEL DRESSING 90 GM TUBE TP SCH ×2 (09:00→21:38)
[2020-06-03] MEDS: Z GUARD REMEDY 4 OZ OINT TP SCH ×4 (09:00→21:38)
[2020-06-03] MEDS: CREON GT SCH ×3 (09:00→17:59)
[2020-06-03] MEDS: CLOTRIMAZOLE 1% 15 GM TUBE TP SCH ×6 (09:00→21:38)
[2020-06-03] MEDS: AMLODIPINE BESYLATE 5 MG TABLET GT SCH (09:00)
[2020-06-03] MEDS: AMITRIPTYLINE HCL 25 MG TABLET GT SCH (09:00)
[2020-06-03] MEDS: LOSARTAN POTASSIUM 50 MG TABLET GT SCH (09:00)
--- NOTE | 2020-06-03 10:28 | NUR ---
Resident is awake watching TV and trying to fix her hair. She was mad because she cannot do anything about it . tried to offer reading a creative forecasting magazine but she refused.
--- NOTE | 2020-06-03 12:00 | NUR ---
Dr. Serrano, psychiatrist assessed and had a conversation with resident regarding her behavior. After MD's conversation with patient, he ordered to DC Elavil and started her on PRN Ativan and Zoloft. Resident's daughter Adan made aware of new order by the psychiatrist and that patient verbalized that she does not want to hurt herself. Patient is calm, watching TV no episode of respiratory distress, current vent setting well tolerated. Appreciated the information provided.
[2020-06-03 18:00] VITALS: BP 118/73
[2020-06-03 20:11] VITALS: BP 140/77
[2020-06-03] MEDS: BASAGLAR KWIKPEN SQ SCH (21:39)
[2020-06-03] MEDS: TEMAZEPAM 15 MG CAPSULE GT PRN (21:49)
[2020-06-03] MEDS: MAG HYDROX/AL HYDROX/SIMETH 30 ML UDC GT PRN (21:55)
[2020-06-03] MEDS ORDERED: AMITRIPTYLINE HCL 25 MG TABLET GT SCH (22:00)
[2020-06-04 00:06] VITALS: BP 145/82
[2020-06-04] MEDS: IPRATROPIUM NEB FS 0.5 MG/2.5 ML AMPUL.NEB NEB SCH ×4 (01:28→18:33)
[2020-06-04] MEDS: ALBUTEROL FS 2.5 MG/0.5 ML VIAL.NEB NEB SCH ×4 (01:28→18:33)
[2020-06-04] MEDS: METOCLOPRAMIDE HCL 10 MG TABLET GT SCH ×3 (05:33→21:49)
[2020-06-04] MEDS: OMEPRAZOLE 20 MG CAPSULE.DR GT SCH (05:33)
[2020-06-04] MEDS: BLOOD SUGAR DIAGNOSTIC 1 EACH STRIP IN SCH ×3 (05:33→17:37)
[2020-06-04] MEDS: INSULIN REGULAR, HUMAN 100 UNIT/ML 3 ML VIAL SQ PRN ×3 (05:34→17:38)
[2020-06-04] MEDS: HYDROCODONE/APAP 5/325MG TABLET GT PRN ×3 (05:42→17:24)
[2020-06-04 06:49] VITALS: BP 141/85
[2020-06-04 07:48] VITALS: BP 142/98
[2020-06-04] MEDS: HYDROGEN PEROXIDE 480 ML BOTTLE TP SCH ×2 (08:31→21:07)
[2020-06-04] MEDS: LOSARTAN POTASSIUM 50 MG TABLET GT SCH (09:21)
[2020-06-04] MEDS: PROPRANOLOL HCL 40 MG TABLET GT SCH (09:22)
[2020-06-04] MEDS: CREON GT SCH ×3 (09:22→17:23)
[2020-06-04] MEDS: PROSOURCE / PROSTAT (PYXIS) 30 ML UDC GT SCH ×3 (09:23→17:23)
[2020-06-04] MEDS: SERTRALINE HCL 50 MG TABLET GT SCH (09:23)
[2020-06-04] MEDS: AMLODIPINE BESYLATE 5 MG TABLET GT SCH (09:23)
[2020-06-04] MEDS: ENOXAPARIN SODIUM 40 MG/0.4 ML DISP.SYRIN SQ SCH (09:25)
[2020-06-04] MEDS: Z GUARD REMEDY 4 OZ OINT TP SCH ×4 (09:25→21:49)
[2020-06-04] MEDS: CLOTRIMAZOLE 1% 15 GM TUBE TP SCH ×2 (09:25→21:49)
[2020-06-04] MEDS: HYDROGEL DRESSING 90 GM TUBE TP SCH ×2 (09:25→21:49)
[2020-06-04] MEDS: VITAMINS A AND D 56.7 GM TUBE TP SCH ×2 (09:26→21:49)
[2020-06-04] MEDS: MAG HYDROX/AL HYDROX/SIMETH 30 ML UDC GT PRN (11:12)
[2020-06-04 12:47] VITALS: BP 142/82
[2020-06-04] MEDS: GLUCERNA 1.2 1,000 ML BOTTLE NG PRN (13:34)
--- NOTE | 2020-06-04 15:19 | NUR ---
Resident is awake watching TV. Refused to draw the blinds because the sun is too bright.Shes cooperative, able to make needs known.
--- NOTE | 2020-06-04 16:00 | NUR ---
Resident has no episode of respiratory/cardio distress, tolerating current vent setting. She put her call light when she needed assistance. Mood fair, no noted episode of harming self. Resident allowed nurses to shampooed her and attempted to untangle her tangled hair. Patient daughter was made aware of this and will bring body wash, shampoo, conditioner and detangled comb/brush.
[2020-06-04 18:00] VITALS: BP 140/77
--- NOTE | 2020-06-04 19:00 | NUR ---
Seen and examined by STRUCTURAL STEEL ERECTION SUPERVISOR Rebecca Adams, patient complained of loose BM. Resident has been having 2-3 loose BM per day. Rebecca reviewed current medication with order to start patient on Lactinex and DC routine Reglan and changed it to PRN. Orders carried out.
[2020-06-04 20:00] VITALS: BP 134/82
[2020-06-04] MEDS: BASAGLAR KWIKPEN SQ SCH (21:50)
[2020-06-04] MEDS: TEMAZEPAM 15 MG CAPSULE GT PRN (22:30)
[2020-06-05] VITALS (7 sets, daily range): BP systolic 115–141; BP diastolic 71–87
[2020-06-05] MEDS: BLOOD SUGAR DIAGNOSTIC 1 EACH STRIP IN SCH ×4 (00:20→18:00)
[2020-06-05] MEDS: INSULIN REGULAR, HUMAN 100 UNIT/ML 3 ML VIAL SQ PRN ×4 (00:22→18:02)
[2020-06-05] MEDS: ALBUTEROL FS 2.5 MG/0.5 ML VIAL.NEB NEB SCH ×4 (00:34→19:42)
[2020-06-05] MEDS: IPRATROPIUM NEB FS 0.5 MG/2.5 ML AMPUL.NEB NEB SCH ×4 (00:34→19:42)
[2020-06-05] MEDS: HYDROCODONE/APAP 5/325MG TABLET GT PRN ×3 (00:49→15:04)
[2020-06-05] MEDS: METOCLOPRAMIDE HCL 10 MG TABLET GT SCH (05:10)
[2020-06-05] MEDS: OMEPRAZOLE 20 MG CAPSULE.DR GT SCH (05:10)
[2020-06-05] MEDS: GLUCERNA 1.2 1,000 ML BOTTLE NG PRN (05:11)
[2020-06-05] MEDS: AMLODIPINE BESYLATE 5 MG TABLET GT SCH (08:01)
[2020-06-05] MEDS: LOSARTAN POTASSIUM 50 MG TABLET GT SCH (08:01)
[2020-06-05] MEDS: PROPRANOLOL HCL 40 MG TABLET GT SCH (08:01)
[2020-06-05] MEDS: CREON GT SCH ×3 (08:01→17:47)
[2020-06-05] MEDS: SERTRALINE HCL 50 MG TABLET GT SCH (08:02)
[2020-06-05] MEDS: PROSOURCE / PROSTAT (PYXIS) 30 ML UDC GT SCH ×3 (08:02→17:47)
[2020-06-05] MEDS: ENOXAPARIN SODIUM 40 MG/0.4 ML DISP.SYRIN SQ SCH (08:03)
[2020-06-05] MEDS: ACIDOPHILUS/BULGARICUS 1 EACH TAB.CHEW GT SCH ×2 (08:04→21:40)
[2020-06-05] MEDS: HYDROGEN PEROXIDE 480 ML BOTTLE TP SCH ×2 (08:19→19:42)
[2020-06-05] MEDS: CLOTRIMAZOLE 1% 15 GM TUBE TP SCH ×2 (09:17→21:40)
[2020-06-05] MEDS: HYDROGEL DRESSING 90 GM TUBE TP SCH ×2 (09:17→21:40)
[2020-06-05] MEDS: VITAMINS A AND D 56.7 GM TUBE TP SCH ×2 (09:17→21:40)
[2020-06-05] MEDS: Z GUARD REMEDY 4 OZ OINT TP SCH ×4 (09:17→21:40)
--- NOTE | 2020-06-05 15:00 | NUR ---
Received an order fro CHRISTINA Adams to try to put patient on SIMV 10, PS 15, Peep5 and ABG after 2 hours. RT informed. Orders carried out.
--- NOTE | 2020-06-05 15:23 | NUR ---
Resident is alert , able to make needs known.She's scott today .
--- NOTE | 2020-06-05 15:27 | NUR ---
Resident is alert , not in a good mood today due to her tangled hair. She requested to have her hair cut but we need an approval of the daughter.tried to call her daughter and she approved of cutting her hair . Addendum: 06/07/20 at 1534 by GRABIEL SIMMONS ACT May
[2020-06-05 17:43] LABS: ABG OXYGEN SATURATION 99.1 % (92.0-98.5); ABG PCO2 38.8 mmHg (35.0-45.0); AaDO2 77.6 mmHg; COHb 0.6 % (0.5-1.5); MetHb 0.3 % (0.0-1.5); O2Hb 98.2 % (94.0-97.0); PEEP,BG 5 cm H2O; SITE, ABG Right Radial; VENT MODE, BG SIMV PSV15 40%; VT, ABG 550 mL
--- NOTE | 2020-06-05 18:00 | NUR ---
Resident tolerating current vent setting of SIMV 10, PS 15, Peep5, O2 sat 99% F102 40%, HR90, BP 118/80. Resident herself is excited that she is being weaned off ventilator again. She verbalized when her trach will come off. Explained to patient that weaning is a slow process and will take sometime before we can remove the trach. She understood by nodding her head. ABG result reported to Rebecca Adams, no changes, resident to continue with SIMV as tolerated. Resident's daughter informed and very pleased to hear of patient's progress.
[2020-06-05] MEDS: MAG HYDROX/AL HYDROX/SIMETH 30 ML UDC GT PRN (18:01)
[2020-06-05] MEDS: BASAGLAR KWIKPEN SQ SCH (21:40)
[2020-06-05] MEDS: TEMAZEPAM 15 MG CAPSULE GT PRN (23:00)
[2020-06-06] VITALS (8 sets, daily range): BP systolic 125–145; BP diastolic 72–77
[2020-06-06] MEDS: BLOOD SUGAR DIAGNOSTIC 1 EACH STRIP IN SCH ×5 (00:23→23:28)
[2020-06-06] MEDS: INSULIN REGULAR, HUMAN 100 UNIT/ML 3 ML VIAL SQ PRN ×5 (00:25→23:29)
[2020-06-06] MEDS: IPRATROPIUM NEB FS 0.5 MG/2.5 ML AMPUL.NEB NEB SCH ×4 (01:14→19:29)
[2020-06-06] MEDS: ALBUTEROL FS 2.5 MG/0.5 ML VIAL.NEB NEB SCH ×4 (01:14→19:29)
[2020-06-06] MEDS: LORAZEPAM 1 MG TABLET GT PRN ×2 (03:37→18:32)
[2020-06-06] MEDS: OMEPRAZOLE 20 MG CAPSULE.DR GT SCH (05:46)
[2020-06-06] MEDS: HYDROCODONE/APAP 5/325MG TABLET GT PRN (06:31)
[2020-06-06] MEDS: HYDROGEN PEROXIDE 480 ML BOTTLE TP SCH ×2 (08:28→19:30)
[2020-06-06] MEDS: CLOTRIMAZOLE 1% 15 GM TUBE TP SCH ×2 (09:00→21:39)
[2020-06-06] MEDS: HYDROGEL DRESSING 90 GM TUBE TP SCH ×2 (09:00→21:39)
[2020-06-06] MEDS: LOSARTAN POTASSIUM 50 MG TABLET GT SCH (09:00)
[2020-06-06] MEDS: CREON GT SCH ×3 (09:00→16:31)
[2020-06-06] MEDS: PROPRANOLOL HCL 40 MG TABLET GT SCH (09:00)
[2020-06-06] MEDS: PROSOURCE / PROSTAT (PYXIS) 30 ML UDC GT SCH ×3 (09:00→16:31)
[2020-06-06] MEDS: AMLODIPINE BESYLATE 5 MG TABLET GT SCH (09:00)
[2020-06-06] MEDS: Z GUARD REMEDY 4 OZ OINT TP SCH ×4 (09:00→21:39)
[2020-06-06] MEDS: VITAMINS A AND D 56.7 GM TUBE TP SCH ×2 (09:00→21:39)
[2020-06-06] MEDS: ENOXAPARIN SODIUM 40 MG/0.4 ML DISP.SYRIN SQ SCH (09:00)
[2020-06-06] MEDS: SERTRALINE HCL 50 MG TABLET GT SCH (09:00)
[2020-06-06] MEDS: ACIDOPHILUS/BULGARICUS 1 EACH TAB.CHEW GT SCH ×2 (09:00→21:39)
[2020-06-06] MEDS: GLUCERNA 1.2 1,000 ML BOTTLE NG PRN ×2 (14:25)
[2020-06-06] MEDS: BASAGLAR KWIKPEN SQ SCH (21:40)
[2020-06-07] VITALS (8 sets, daily range): BP systolic 118–149; BP diastolic 67–77
[2020-06-07] MEDS: TEMAZEPAM 15 MG CAPSULE GT PRN ×2 (01:00→22:00)
[2020-06-07] MEDS: IPRATROPIUM NEB FS 0.5 MG/2.5 ML AMPUL.NEB NEB SCH ×4 (01:38→19:15)
[2020-06-07] MEDS: ALBUTEROL FS 2.5 MG/0.5 ML VIAL.NEB NEB SCH ×4 (01:38→19:15)
[2020-06-07] MEDS: LORAZEPAM 1 MG TABLET GT PRN (02:08)
[2020-06-07] MEDS: HYDROCODONE/APAP 5/325MG TABLET GT PRN ×3 (02:09→15:30)
[2020-06-07] MEDS: OMEPRAZOLE 20 MG CAPSULE.DR GT SCH (05:55)
[2020-06-07] MEDS: BLOOD SUGAR DIAGNOSTIC 1 EACH STRIP IN SCH ×4 (05:55→23:40)
[2020-06-07] MEDS: INSULIN REGULAR, HUMAN 100 UNIT/ML 3 ML VIAL SQ PRN ×4 (05:56→23:41)
[2020-06-07] MEDS: HYDROGEN PEROXIDE 480 ML BOTTLE TP SCH ×2 (08:17→19:15)
[2020-06-07] MEDS: ENOXAPARIN SODIUM 40 MG/0.4 ML DISP.SYRIN SQ SCH (09:00)
[2020-06-07] MEDS: CREON GT SCH ×3 (09:00→17:01)
[2020-06-07] MEDS: ACIDOPHILUS/BULGARICUS 1 EACH TAB.CHEW GT SCH ×2 (09:00→21:17)
[2020-06-07] MEDS: PROPRANOLOL HCL 40 MG TABLET GT SCH (09:00)
[2020-06-07] MEDS: AMLODIPINE BESYLATE 5 MG TABLET GT SCH (09:00)
[2020-06-07] MEDS: LOSARTAN POTASSIUM 50 MG TABLET GT SCH (09:00)
[2020-06-07] MEDS: VITAMINS A AND D 56.7 GM TUBE TP SCH ×2 (09:00→21:17)
[2020-06-07] MEDS: HYDROGEL DRESSING 90 GM TUBE TP SCH ×2 (09:00→21:17)
[2020-06-07] MEDS: CLOTRIMAZOLE 1% 15 GM TUBE TP SCH ×2 (09:00→21:17)
[2020-06-07] MEDS: SERTRALINE HCL 50 MG TABLET GT SCH (09:00)
[2020-06-07] MEDS: Z GUARD REMEDY 4 OZ OINT TP SCH ×4 (09:00→21:17)
[2020-06-07] MEDS: PROSOURCE / PROSTAT (PYXIS) 30 ML UDC GT SCH ×3 (09:00→17:01)
--- NOTE | 2020-06-07 12:27 | NUR ---
Seen by DON Trinidad. She corrected pt's sacral wound from Stage 3 to unstageable as there is a significant slough covering the wound. Sacral wound debridement performed by DON Trinidad. Pt tolerated procedure well.
--- NOTE | 2020-06-07 15:21 | NUR ---
AZEB called the pt.'s daughter, Adan P. [phone] to follow up regarding admission paperwork. Adan stated that she did receive paperwork in the mail and will complete it DMITRIY. Per Adan, she can come drop off the paperwork Sunday or . SW will be available as needed.
[2020-06-07] MEDS: GLUCERNA 1.2 1,000 ML BOTTLE NG PRN (17:48)
[2020-06-07] MEDS: BASAGLAR KWIKPEN SQ SCH (21:17)
[2020-06-08] VITALS (7 sets, daily range): BP systolic 116–136; BP diastolic 62–87
[2020-06-08] MEDS: IPRATROPIUM NEB FS 0.5 MG/2.5 ML AMPUL.NEB NEB SCH ×4 (01:34→19:52)
[2020-06-08] MEDS: ALBUTEROL FS 2.5 MG/0.5 ML VIAL.NEB NEB SCH ×4 (01:34→19:52)
[2020-06-08] MEDS: OMEPRAZOLE 20 MG CAPSULE.DR GT SCH (05:31)
[2020-06-08] MEDS: BLOOD SUGAR DIAGNOSTIC 1 EACH STRIP IN SCH ×4 (05:31→23:59)
[2020-06-08] MEDS: HYDROCODONE/APAP 5/325MG TABLET GT PRN (05:32)
[2020-06-08] MEDS: INSULIN REGULAR, HUMAN 100 UNIT/ML 3 ML VIAL SQ PRN ×4 (05:32→23:59)
[2020-06-08] MEDS: Z GUARD REMEDY 4 OZ OINT TP SCH ×4 (09:00→21:11)
[2020-06-08] MEDS: VITAMINS A AND D 56.7 GM TUBE TP SCH ×2 (09:00→21:11)
[2020-06-08] MEDS: HYDROGEL DRESSING 90 GM TUBE TP SCH ×2 (09:00→21:11)
[2020-06-08] MEDS: ACIDOPHILUS/BULGARICUS 1 EACH TAB.CHEW GT SCH ×2 (09:00→21:10)
[2020-06-08] MEDS: AMLODIPINE BESYLATE 5 MG TABLET GT SCH (09:00)
[2020-06-08] MEDS: SERTRALINE HCL 50 MG TABLET GT SCH (09:00)
[2020-06-08] MEDS: CLOTRIMAZOLE 1% 15 GM TUBE TP SCH ×2 (09:00→21:11)
[2020-06-08] MEDS: PROSOURCE / PROSTAT (PYXIS) 30 ML UDC GT SCH ×3 (09:00→16:29)
[2020-06-08] MEDS: PROPRANOLOL HCL 40 MG TABLET GT SCH (09:00)
[2020-06-08] MEDS: ENOXAPARIN SODIUM 40 MG/0.4 ML DISP.SYRIN SQ SCH (09:00)
[2020-06-08] MEDS: CREON GT SCH ×3 (09:00→16:29)
[2020-06-08] MEDS: HYDROGEN PEROXIDE 480 ML BOTTLE TP SCH ×2 (09:10→19:52)
[2020-06-08] MEDS: LOSARTAN POTASSIUM 50 MG TABLET GT SCH (09:40)
--- NOTE | 2020-06-08 10:44 | NUR ---
Today resident is so anxious to cut her hair.Shes calm in the afternoon while watching the news on TV. Addendum: 06/08/20 at 1117 by GRABIEL SIMMONS ACT SundayJune 08
--- NOTE | 2020-06-08 14:10 | NUR ---
Spoke with pt regarding the Covid-19 vaccine. Pt nodded that she is aware of the Covid pandemic and wishes to receive the vaccine. Explained possible side effects to patient and she nodded that she understands. Also informed her that the available vaccine is from Moderna and there are 2 doses.
[2020-06-08] MEDS: GLUCERNA 1.2 1,000 ML BOTTLE NG PRN (15:39)
[2020-06-08] MEDS: LORAZEPAM 1 MG TABLET GT PRN (17:57)
[2020-06-08] MEDS: BASAGLAR KWIKPEN SQ SCH (21:11)
[2020-06-08] MEDS: TEMAZEPAM 15 MG CAPSULE GT PRN (21:12)
[2020-06-09] VITALS (7 sets, daily range): BP systolic 120–145; BP diastolic 62–90
[2020-06-09] MEDS: IPRATROPIUM NEB FS 0.5 MG/2.5 ML AMPUL.NEB NEB SCH ×4 (01:17→19:41)
[2020-06-09] MEDS: ALBUTEROL FS 2.5 MG/0.5 ML VIAL.NEB NEB SCH ×4 (01:18→19:41)
[2020-06-09] MEDS: BLOOD SUGAR DIAGNOSTIC 1 EACH STRIP IN SCH ×3 (05:18→17:15)
[2020-06-09] MEDS: OMEPRAZOLE 20 MG CAPSULE.DR GT SCH (05:18)
[2020-06-09] MEDS: INSULIN REGULAR, HUMAN 100 UNIT/ML 3 ML VIAL SQ PRN ×3 (05:19→17:26)
[2020-06-09] MEDS: HYDROCODONE/APAP 5/325MG TABLET GT PRN ×2 (06:15→13:03)
[2020-06-09] MEDS: HYDROGEN PEROXIDE 480 ML BOTTLE TP SCH ×2 (09:10→19:41)
[2020-06-09] MEDS: LOSARTAN POTASSIUM 50 MG TABLET GT SCH (09:38)
[2020-06-09] MEDS: CREON GT SCH ×3 (09:39→17:15)
[2020-06-09] MEDS: AMLODIPINE BESYLATE 5 MG TABLET GT SCH (09:39)
[2020-06-09] MEDS: PROSOURCE / PROSTAT (PYXIS) 30 ML UDC GT SCH ×3 (09:39→17:15)
[2020-06-09] MEDS: SERTRALINE HCL 50 MG TABLET GT SCH (09:39)
[2020-06-09] MEDS: ACIDOPHILUS/BULGARICUS 1 EACH TAB.CHEW GT SCH ×2 (09:39→21:35)
[2020-06-09] MEDS: PROPRANOLOL HCL 40 MG TABLET GT SCH (09:39)
[2020-06-09] MEDS: HYDROGEL DRESSING 90 GM TUBE TP SCH ×2 (09:40→21:36)
[2020-06-09] MEDS: VITAMINS A AND D 56.7 GM TUBE TP SCH ×2 (09:40→21:36)
[2020-06-09] MEDS: ENOXAPARIN SODIUM 40 MG/0.4 ML DISP.SYRIN SQ SCH (09:40)
[2020-06-09] MEDS: CLOTRIMAZOLE 1% 15 GM TUBE TP SCH ×2 (09:40→21:36)
[2020-06-09] MEDS: Z GUARD REMEDY 4 OZ OINT TP SCH ×4 (09:40→21:36)
--- NOTE | 2020-06-09 09:46 | NUR ---
Resident is calm ,and watching TV.Asked if she needs anything she answered nothing.Shes happy because her hair was cut.
[2020-06-09] MEDS: GLUCERNA 1.2 1,000 ML BOTTLE NG PRN (13:00)
--- NOTE | 2020-06-09 14:20 | NUR ---
AZEB received completed & signed admission paperwork dropped off by the pt.s' daughter, Adan Andrew. AZEB filed the paperwork in pt.'s chart.
--- NOTE | 2020-06-09 14:25 | NUR ---
Pt. Check-in: SW met with pt. at bedside. Pt.'s mood is depressed with flat affect. SW asked pt. how she is feeling. Pt. stated "bad". SW validated her feedings and provided emotional support. SW explored pt.'s feeling about psych consult with Dr. Serrano. Pt. stated that she is "happy" to have seen Dr. Serrano and is looking forward to medication helping her with symptoms of depression. SW asked pt. is she ever has thoughts of hurting self or thoughts of suicide. Pt. nodded yes. SW asked pt. if she has a plan. Pt. mouthed "insulin" and gestured injecting in arm motion. Pt. deos not have access to insulin. Medication is administered by nursing. SW asked pt. if she was experiencing SI prior to admission to the hospital. Pt. nodded "yes" and used pen & paper to inform SW that pt. began experiencing SI 7 years ago when she "got sick". Pt. wrote that she suffers from "Complex Regional Pain Syndrome" and would take Morphine to help her control the pain. AZEB informed charge nurse & director of community education of information pt. provided. SW asked pt. regarding Physical Therapy. Patient stated that she doesn't participate as much as she should because of the chronic pain. SW encouraged pt. to participate as it is part of her rehab plan. Pt. nodded "yes" and stated "I will try". SW also offered to do video call between pt. & their daughter, Adan Mooney Pt. mouthed yes and SW to facilitate call 06/10/2020 3 pm. Plan: SW will continue to provide clinical intervention through active listening in individual therapy as needed and promote interaction with support system. SW will continue to encourage pt. to participate in her rehab plan and SW will continue to assess for level of SI. Psych consult with Dr. Serrano took place on 06/03/2020 and he discontinued Elavil and placed pt. on Zoloft & Ativan. Per EMR, patient is taking Restoril PRN for insomnia & Neurontin 600 mg for nerve pain. SW will encourage pt. to remain compliant with medication. (See notes for details)
--- NOTE | 2020-06-09 14:53 | NUR ---
Resident refused physical therapy today. Explained to patient the importance of therapy and she agreed to work with PT tomorrow and will sit in jessica chair as tolerated.
[2020-06-09] MEDS: LORAZEPAM 1 MG TABLET GT PRN (17:27)
[2020-06-09] MEDS: BASAGLAR KWIKPEN SQ SCH (21:45)
[2020-06-09] MEDS: TEMAZEPAM 15 MG CAPSULE GT PRN (21:49)
[2020-06-10] VITALS (7 sets, daily range): BP systolic 114–141; BP diastolic 67–81
[2020-06-10] MEDS: BLOOD SUGAR DIAGNOSTIC 1 EACH STRIP IN SCH ×4 (00:40→18:02)
[2020-06-10] MEDS: INSULIN REGULAR, HUMAN 100 UNIT/ML 3 ML VIAL SQ PRN ×3 (00:43→12:39)
[2020-06-10] MEDS: ALBUTEROL FS 2.5 MG/0.5 ML VIAL.NEB NEB SCH ×4 (01:23→19:27)
[2020-06-10] MEDS: IPRATROPIUM NEB FS 0.5 MG/2.5 ML AMPUL.NEB NEB SCH ×4 (01:23→19:27)
[2020-06-10] MEDS: HYDROCODONE/APAP 5/325MG TABLET GT PRN ×3 (03:56→12:52)
[2020-06-10] MEDS: GLUCERNA 1.2 1,000 ML BOTTLE NG PRN (05:37)
[2020-06-10] MEDS: OMEPRAZOLE 20 MG CAPSULE.DR GT SCH (05:37)
[2020-06-10] MEDS: ACIDOPHILUS/BULGARICUS 1 EACH TAB.CHEW GT SCH ×2 (08:48→21:32)
[2020-06-10] MEDS: LOSARTAN POTASSIUM 50 MG TABLET GT SCH (08:48)
[2020-06-10] MEDS: CREON GT SCH ×3 (08:48→16:46)
[2020-06-10] MEDS: PROPRANOLOL HCL 40 MG TABLET GT SCH (08:48)
[2020-06-10] MEDS: AMLODIPINE BESYLATE 5 MG TABLET GT SCH (08:49)
[2020-06-10] MEDS: PROSOURCE / PROSTAT (PYXIS) 30 ML UDC GT SCH ×3 (08:49→16:46)
[2020-06-10] MEDS: SERTRALINE HCL 50 MG TABLET GT SCH (08:49)
[2020-06-10] MEDS: ENOXAPARIN SODIUM 40 MG/0.4 ML DISP.SYRIN SQ SCH (08:51)
[2020-06-10] MEDS: HYDROGEL DRESSING 90 GM TUBE TP SCH ×2 (08:52→21:32)
[2020-06-10] MEDS: CLOTRIMAZOLE 1% 15 GM TUBE TP SCH ×2 (08:52→21:32)
[2020-06-10] MEDS: Z GUARD REMEDY 4 OZ OINT TP SCH ×4 (08:52→21:32)
[2020-06-10] MEDS: VITAMINS A AND D 56.7 GM TUBE TP SCH ×2 (08:52→21:32)
[2020-06-10] MEDS: HYDROGEN PEROXIDE 480 ML BOTTLE TP SCH ×2 (09:06→19:27)
--- NOTE | 2020-06-10 09:49 | NUR ---
Resident is again calm today, no complain at all. Fixed her personal belongings and put it in the proper place.We will provide any activities needed.
--- NOTE | 2020-06-10 10:45 | NUR ---
Family Invite to IDT: SW emailed the pt.'s family, Adan Andrew [phone] inviting them to participate in 06/11/2020 IDT meeting at 12:30 pm. SW will follow up as needed.
[2020-06-10] MEDS ORDERED: COVID-19 VACC,MRNA(MODERNA) 100 MCG/0.5 ML IM ONE (11:00)
--- NOTE | 2020-06-10 14:44 | NUR ---
SW informed by PT that pt. participated today and has a productive session.
--- NOTE | 2020-06-10 15:30 | NUR ---
First dose of Moderna vaccine administered on pt's right deltoid, no adverse reactions noted at this time.
--- NOTE | 2020-06-10 16:30 | NUR ---
Pt. Check -In & Family Video Call: AZEB met with pt. at bedside. Pt. receptive to meeting with SW. AZEB continued to build rapport with pt. AZEB asked pt. how she is doing. Pt. stated that she is ok and smiled. AZEB commended pt. for participated in Physical Therapy today. Pt. nodded yes. AZEB informed pt. that family is available to do video call with pt. Pt. nodded no. AZEB asked why she is declining. Pt. agreeable yesterday. Pt. mouthed I cant speak. AZEB encouraged pt. to see family as relationships are an important vehicle for change and provide encouragement. AZEB informed pt. that family is aware she cannot speak and family will do the speaking and want to see pt. AZEB offered to facilitate conversation as needed, Pt. agreeable. AZEB facilitated video call between the pt. and their daughters: Adan & Geovanna along with pt.s grandchildren. Pt. smiled throughout video call. Plan: AZEB will continue to provide clinical intervention through active listening in individual therapy as needed and continue to assess for level of SI. AZEB will continue to encourage pt. to participate in her rehab plan & promote interaction with support system .
[2020-06-10] MEDS: LORAZEPAM 1 MG TABLET GT PRN (18:02)
[2020-06-10] MEDS: BASAGLAR KWIKPEN SQ SCH (21:33)
[2020-06-10] MEDS: TEMAZEPAM 15 MG CAPSULE GT PRN (22:19)
[2020-06-11 00:35] VITALS: BP 120/78
[2020-06-11] MEDS: BLOOD SUGAR DIAGNOSTIC 1 EACH STRIP IN SCH ×4 (00:38→17:17)
[2020-06-11] MEDS: INSULIN REGULAR, HUMAN 100 UNIT/ML 3 ML VIAL SQ PRN ×4 (00:39→17:18)
[2020-06-11 00:49] VITALS: BP 120/78
[2020-06-11] MEDS: HYDROCODONE/APAP 5/325MG TABLET GT PRN ×4 (00:51→17:30)
[2020-06-11] MEDS: IPRATROPIUM NEB FS 0.5 MG/2.5 ML AMPUL.NEB NEB SCH ×4 (01:38→20:03)
[2020-06-11] MEDS: ALBUTEROL FS 2.5 MG/0.5 ML VIAL.NEB NEB SCH ×4 (01:38→20:03)
[2020-06-11] MEDS: GLUCERNA 1.2 1,000 ML BOTTLE NG PRN ×2 (05:29→19:36)
[2020-06-11] MEDS: OMEPRAZOLE 20 MG CAPSULE.DR GT SCH (05:29)
[2020-06-11 06:04] VITALS: BP 115/76
--- NOTE | 2020-06-11 06:10 | NUR ---
S/P Moderna Covid 19 vaccine administration ,patient remains afebrile,no adverse reaction.
[2020-06-11 08:08] VITALS: BP 129/71
[2020-06-11] MEDS: HYDROGEN PEROXIDE 480 ML BOTTLE TP SCH ×2 (08:16→21:45)
[2020-06-11] MEDS: PROPRANOLOL HCL 40 MG TABLET GT SCH (09:16)
[2020-06-11] MEDS: ACIDOPHILUS/BULGARICUS 1 EACH TAB.CHEW GT SCH ×2 (09:16→21:45)
[2020-06-11] MEDS: LOSARTAN POTASSIUM 50 MG TABLET GT SCH (09:16)
[2020-06-11] MEDS: CREON GT SCH ×3 (09:16→16:44)
[2020-06-11] MEDS: PROSOURCE / PROSTAT (PYXIS) 30 ML UDC GT SCH ×3 (09:17→16:44)
[2020-06-11] MEDS: SERTRALINE HCL 50 MG TABLET GT SCH (09:17)
[2020-06-11] MEDS: AMLODIPINE BESYLATE 5 MG TABLET GT SCH (09:17)
[2020-06-11] MEDS: ENOXAPARIN SODIUM 40 MG/0.4 ML DISP.SYRIN SQ SCH (09:17)
[2020-06-11] MEDS: Z GUARD REMEDY 4 OZ OINT TP SCH ×3 (09:19→21:45)
[2020-06-11] MEDS: VITAMINS A AND D 56.7 GM TUBE TP SCH ×2 (09:20→21:45)
[2020-06-11] MEDS: HYDROGEL DRESSING 90 GM TUBE TP SCH ×2 (09:28→21:45)
[2020-06-11] MEDS: CLOTRIMAZOLE 1% 15 GM TUBE TP SCH ×2 (09:28→21:45)
--- NOTE | 2020-06-11 11:55 | NUR ---
Resident is not friendly today.Refused to answer simple questions and shes not in a good mood today.
--- NOTE | 2020-06-11 15:46 | NUR ---
INTERDISCIPLINARY PLAN OF CARE CONFERENCE took place today. The patients Daughter, Adan Andrew [phone] participated via phone conference[address] Dr. Gordon and Interdisciplinary team discussed the plan of care in detail. Current orders as well as treatments and medications were reviewed. Charge Nurse discussed Pt. received first dose of Moderna vaccine on 06/10/2020. Dr. Gordon and the IDT addressed the familys questions. See other disciplines IDT notes for further details.
[2020-06-11 18:00] VITALS: BP 132/72
--- NOTE | 2020-06-11 18:50 | NUR ---
Trach suture removed, tolerated well, no bleeding noted. Will continue to monitor.
[2020-06-11 20:09] VITALS: BP 107/70
[2020-06-11] MEDS: BASAGLAR KWIKPEN SQ SCH (22:03)
[2020-06-11] MEDS: TEMAZEPAM 15 MG CAPSULE GT PRN (22:04)
[2020-06-12] VITALS (7 sets, daily range): BP systolic 101–124; BP diastolic 62–73
[2020-06-12] MEDS: BLOOD SUGAR DIAGNOSTIC 1 EACH STRIP IN SCH ×4 (00:14→17:03)
[2020-06-12] MEDS: INSULIN REGULAR, HUMAN 100 UNIT/ML 3 ML VIAL SQ PRN ×4 (00:15→17:32)
[2020-06-12] MEDS: ALBUTEROL FS 2.5 MG/0.5 ML VIAL.NEB NEB SCH ×4 (02:11→19:27)
[2020-06-12] MEDS: IPRATROPIUM NEB FS 0.5 MG/2.5 ML AMPUL.NEB NEB SCH ×4 (02:11→19:27)
[2020-06-12] MEDS: OMEPRAZOLE 20 MG CAPSULE.DR GT SCH (05:26)
--- NOTE | 2020-06-12 06:09 | NUR ---
Patient noted with blood in the urine,huff flush with NS,no resistant. Patient complaining of lower abdomen pain left side. BM current.Pain medicines given. Will continue to monitor and will endorse .
[2020-06-12] MEDS: HYDROCODONE/APAP 5/325MG TABLET GT PRN ×3 (06:33→17:14)
[2020-06-12] MEDS: HYDROGEN PEROXIDE 480 ML BOTTLE TP SCH ×2 (08:26→19:27)
[2020-06-12] MEDS: AMLODIPINE BESYLATE 5 MG TABLET GT SCH (08:39)
[2020-06-12] MEDS: LOSARTAN POTASSIUM 50 MG TABLET GT SCH (08:39)
[2020-06-12] MEDS: PROPRANOLOL HCL 40 MG TABLET GT SCH (08:39)
[2020-06-12] MEDS: SERTRALINE HCL 50 MG TABLET GT SCH (08:39)
[2020-06-12] MEDS: ACIDOPHILUS/BULGARICUS 1 EACH TAB.CHEW GT SCH ×2 (08:39→21:31)
[2020-06-12] MEDS: CREON GT SCH ×3 (08:39→17:02)
[2020-06-12] MEDS: PROSOURCE / PROSTAT (PYXIS) 30 ML UDC GT SCH ×3 (08:39→17:03)
[2020-06-12] MEDS: CLOTRIMAZOLE 1% 15 GM TUBE TP SCH ×2 (08:40→21:31)
[2020-06-12] MEDS: ENOXAPARIN SODIUM 40 MG/0.4 ML DISP.SYRIN SQ SCH (08:40)
[2020-06-12] MEDS: VITAMINS A AND D 56.7 GM TUBE TP SCH ×2 (08:40→21:31)
[2020-06-12] MEDS: Z GUARD REMEDY 4 OZ OINT TP SCH ×2 (08:40→21:31)
[2020-06-12] MEDS: HYDROGEL DRESSING 90 GM TUBE TP SCH ×2 (08:40→21:31)
--- NOTE | 2020-06-12 10:02 | NUR ---
Notified Dr. Gordon, resident with hematuria last night with low grade temperature 99.1, 119/70, 98, 88. Dr. Gordon ordered to send UA and C&S. Resident's daughter and patient informed of new order.
--- NOTE | 2020-06-12 11:51 | NUR ---
Resident is sleeping in the morning.in the afternoon , she was watching tv and reading a material given and sent by her daughter.
--- NOTE | 2020-06-12 15:40 | NUR ---
Inserted new huff catheter 16fr, pt tolerated procedure, f/c draining yellow, cloudy urine. Collected urine specimen for UA and C&S per MD order.
[2020-06-12 16:25] LABS: BILIRUBIN,URINE NEGATIVE (NEGATIVE); COLOR,URINE YELLOW (YELLOW); LEUKOCYTE ESTERASE ,URINE MODERATE (NEGATIVE); NITRITE, URINE NEGATIVE (NEGATIVE); PH,URINE 6.5 (5.0-8.0); PROTEIN,URINE 30 mg/dl (NEGATIVE); UGLUCOSE >=1000 mg/dL (NEGATIVE); UROBILINOGEN,URINE 0.2 EU/dL (0.2)
[2020-06-12 16:48] LABS: RBC,URINE TOO NUMEROUS TO COUN /HPF (0-2)
[2020-06-12 16:49] LABS: BACTERIA,URINE 4+ /HPF (None Seen); SQUAMOUS EPITHELIAL CELL,UR 0-2 /HPF (None Seen); WBC,URINE 81-100 /HPF (0-3)
[2020-06-12] MEDS: GLUCERNA 1.2 1,000 ML BOTTLE NG PRN (17:13)
[2020-06-12] MEDS: BASAGLAR KWIKPEN SQ SCH (21:32)
[2020-06-12] MEDS: TEMAZEPAM 15 MG CAPSULE GT PRN (22:00)
[2020-06-13] VITALS (8 sets, daily range): BP systolic 107–133; BP diastolic 63–71
[2020-06-13] MEDS: BLOOD SUGAR DIAGNOSTIC 1 EACH STRIP IN SCH ×4 (00:12→17:09)
[2020-06-13] MEDS: INSULIN REGULAR, HUMAN 100 UNIT/ML 3 ML VIAL SQ PRN ×4 (00:14→17:25)
[2020-06-13] MEDS: IPRATROPIUM NEB FS 0.5 MG/2.5 ML AMPUL.NEB NEB SCH ×4 (01:22→20:19)
[2020-06-13] MEDS: ALBUTEROL FS 2.5 MG/0.5 ML VIAL.NEB NEB SCH ×4 (01:22→20:19)
[2020-06-13] MEDS: HYDROCODONE/APAP 5/325MG TABLET GT PRN ×3 (02:57→12:41)
[2020-06-13] MEDS: OMEPRAZOLE 20 MG CAPSULE.DR GT SCH (06:29)
[2020-06-13] MEDS: GLUCERNA 1.2 1,000 ML BOTTLE NG PRN ×2 (06:30→06:45)
[2020-06-13] MEDS: HYDROGEN PEROXIDE 480 ML BOTTLE TP SCH ×2 (08:07→20:19)
[2020-06-13] MEDS: LOSARTAN POTASSIUM 50 MG TABLET GT SCH (09:00)
[2020-06-13] MEDS: SERTRALINE HCL 50 MG TABLET GT SCH (09:00)
[2020-06-13] MEDS: AMLODIPINE BESYLATE 5 MG TABLET GT SCH (09:00)
[2020-06-13] MEDS: ENOXAPARIN SODIUM 40 MG/0.4 ML DISP.SYRIN SQ SCH (09:00)
[2020-06-13] MEDS: CREON GT SCH ×3 (09:00→17:08)
[2020-06-13] MEDS: PROSOURCE / PROSTAT (PYXIS) 30 ML UDC GT SCH ×3 (09:00→17:08)
[2020-06-13] MEDS: PROPRANOLOL HCL 40 MG TABLET GT SCH (09:00)
[2020-06-13] MEDS: ACIDOPHILUS/BULGARICUS 1 EACH TAB.CHEW GT SCH ×2 (09:00→21:17)
--- NOTE | 2020-06-13 12:15 | NUR ---
Resident is calm and pleasant. No bad mood today.Easy to communicate with her. She only complain of pain in her tummy.
[2020-06-13] MEDS: HYDROGEL DRESSING 90 GM TUBE TP SCH ×2 (12:34→21:17)
[2020-06-13] MEDS: CLOTRIMAZOLE 1% 15 GM TUBE TP SCH ×2 (12:34→21:17)
[2020-06-13] MEDS: VITAMINS A AND D 56.7 GM TUBE TP SCH ×2 (12:35→21:18)
[2020-06-13] MEDS: Z GUARD REMEDY 4 OZ OINT TP SCH ×2 (12:35→21:17)
[2020-06-13] MEDS: GABAPENTIN 300 MG CAPSULE GT PRN (17:34)
[2020-06-13] MEDS: BASAGLAR KWIKPEN SQ SCH (21:18)
[2020-06-13] MEDS: TEMAZEPAM 15 MG CAPSULE GT PRN (21:18)
[2020-06-14] VITALS (7 sets, daily range): BP systolic 98–126; BP diastolic 60–70
[2020-06-14] MEDS: BLOOD SUGAR DIAGNOSTIC 1 EACH STRIP IN SCH ×5 (00:22→23:56)
[2020-06-14] MEDS: INSULIN REGULAR, HUMAN 100 UNIT/ML 3 ML VIAL SQ PRN ×5 (00:23→23:57)
[2020-06-14] MEDS: ALBUTEROL FS 2.5 MG/0.5 ML VIAL.NEB NEB SCH ×4 (01:59→19:31)
[2020-06-14] MEDS: IPRATROPIUM NEB FS 0.5 MG/2.5 ML AMPUL.NEB NEB SCH ×4 (01:59→19:31)
[2020-06-14] MEDS: HYDROCODONE/APAP 5/325MG TABLET GT PRN ×2 (04:02→12:34)
[2020-06-14] MEDS: OMEPRAZOLE 20 MG CAPSULE.DR GT SCH (05:38)
[2020-06-14] MEDS: CLOTRIMAZOLE 1% 15 GM TUBE TP SCH ×2 (09:00→21:30)
[2020-06-14] MEDS: Z GUARD REMEDY 4 OZ OINT TP SCH ×2 (09:00→21:30)
[2020-06-14] MEDS: VITAMINS A AND D 56.7 GM TUBE TP SCH ×2 (09:00→21:30)
[2020-06-14] MEDS: HYDROGEL DRESSING 90 GM TUBE TP SCH ×2 (09:00→21:30)
[2020-06-14] MEDS: LOSARTAN POTASSIUM 50 MG TABLET GT SCH (09:08)
[2020-06-14] MEDS: ENOXAPARIN SODIUM 40 MG/0.4 ML DISP.SYRIN SQ SCH (09:09)
[2020-06-14] MEDS: PROPRANOLOL HCL 40 MG TABLET GT SCH (09:09)
[2020-06-14] MEDS: CREON GT SCH ×3 (09:09→16:28)
[2020-06-14] MEDS: PROSOURCE / PROSTAT (PYXIS) 30 ML UDC GT SCH ×3 (09:09→16:28)
[2020-06-14] MEDS: ACIDOPHILUS/BULGARICUS 1 EACH TAB.CHEW GT SCH ×2 (09:09→21:30)
[2020-06-14] MEDS: SERTRALINE HCL 50 MG TABLET GT SCH (09:09)
[2020-06-14] MEDS: AMLODIPINE BESYLATE 5 MG TABLET GT SCH (09:09)
[2020-06-14] MEDS: HYDROGEN PEROXIDE 480 ML BOTTLE TP SCH ×2 (09:17→21:18)
--- NOTE | 2020-06-14 15:30 | NUR ---
Pt was seen by PT. According to PT, she stood up and took a few steps. She also sat up in [facility] but complained of pain in her buttocks/sacral area. Pt has a sacral wound. [facility] provide a gel [facility]. Pt's daughter Adan sent a light blue nightgown, a conditioner, and a note for her. Gave them to pt and she was pleased. Notified Adan. Pt appears anxious, breathing fast, and sweating a little. Pt's TV is on, call light within easy reach. Pt's daughter has mentioned in the past that the TV relaxes pt. Pt asked for Ativan. Removed pt's left upper arm midline as it is not being used anymore. Pt cooperative and tolerated procedure well. No bleeding noted. Catheter tip intact.
[2020-06-14] MEDS: LORAZEPAM 1 MG TABLET GT PRN (16:28)
[2020-06-14] MEDS: GLUCERNA 1.2 1,000 ML BOTTLE NG PRN (18:03)
--- NOTE | 2020-06-14 19:09 | NUR ---
Seen by CHRISTINA Adams. Asked her if she wanted to order any labs for pt since pt has not had a CBC done since she was admitted to the unit and she had hematuria on 06/12/19. CHRISTINA Adams reviewed pt's chart and said pt is on Lovenox which could have caused the hematuria. Hematuria has resolved. She ordered to repeat UA. She also ordered to place pt on SIMV 8 PS 15 FiO2 40% PEEP +5 tomorrow then do ABG.
[2020-06-14] MEDS: BASAGLAR KWIKPEN SQ SCH (21:30)
[2020-06-14] MEDS: TEMAZEPAM 15 MG CAPSULE GT PRN (21:31)
[2020-06-15] VITALS (7 sets, daily range): BP systolic 116–130; BP diastolic 55–85
[2020-06-15] MEDS: IPRATROPIUM NEB FS 0.5 MG/2.5 ML AMPUL.NEB NEB SCH ×4 (01:23→19:23)
[2020-06-15] MEDS: ALBUTEROL FS 2.5 MG/0.5 ML VIAL.NEB NEB SCH ×4 (01:23→19:23)
[2020-06-15] MEDS: HYDROCODONE/APAP 5/325MG TABLET GT PRN (03:55)
[2020-06-15] MEDS: INSULIN REGULAR, HUMAN 100 UNIT/ML 3 ML VIAL SQ PRN ×4 (05:21→17:14)
[2020-06-15] MEDS: OMEPRAZOLE 20 MG CAPSULE.DR GT SCH (06:12)
[2020-06-15] MEDS: BLOOD SUGAR DIAGNOSTIC 1 EACH STRIP IN SCH ×3 (06:12→17:03)
[2020-06-15] MEDS: HYDROGEN PEROXIDE 480 ML BOTTLE TP SCH ×2 (08:33→21:31)
[2020-06-15] MEDS: LOSARTAN POTASSIUM 50 MG TABLET GT SCH (09:13)
[2020-06-15] MEDS: PROSOURCE / PROSTAT (PYXIS) 30 ML UDC GT SCH ×3 (09:14→16:14)
[2020-06-15] MEDS: PROPRANOLOL HCL 40 MG TABLET GT SCH (09:14)
[2020-06-15] MEDS: ACIDOPHILUS/BULGARICUS 1 EACH TAB.CHEW GT SCH ×2 (09:14→20:59)
[2020-06-15] MEDS: CREON GT SCH ×3 (09:14→16:13)
[2020-06-15] MEDS: HYDROGEL DRESSING 90 GM TUBE TP SCH ×2 (09:14→20:59)
[2020-06-15] MEDS: ENOXAPARIN SODIUM 40 MG/0.4 ML DISP.SYRIN SQ SCH (09:14)
[2020-06-15] MEDS: AMLODIPINE BESYLATE 5 MG TABLET GT SCH (09:14)
[2020-06-15] MEDS: SERTRALINE HCL 50 MG TABLET GT SCH (09:14)
[2020-06-15] MEDS: VITAMINS A AND D 56.7 GM TUBE TP SCH ×2 (09:15→21:00)
[2020-06-15] MEDS: Z GUARD REMEDY 4 OZ OINT TP SCH ×2 (09:15→21:00)
[2020-06-15] MEDS: CLOTRIMAZOLE 1% 15 GM TUBE TP SCH ×2 (09:15→21:00)
[2020-06-15] MEDS: GABAPENTIN 300 MG CAPSULE GT PRN ×2 (09:21→17:13)
[2020-06-15 10:15] LABS: ABG BASE EXCESS 3.3 mmol/L; ABG OXYGEN SATURATION 97.9 % (92.0-98.5); ABG PH 7.438 (7.350-7.450); AaDO2 128.9 mmHg; COHb 0.1 % (0.5-1.5); MetHb 0.3 % (0.0-1.5); O2Hb 97.5 % (94.0-97.0); SITE, ABG Right Radial; VENT MODE, BG SIMV 8 550 40% +5 PSV 15
--- NOTE | 2020-06-15 10:30 | NUR ---
Pt was placed on SIMV 8 PS 15 FiO2 40% PEEP +5. ABG result relayed to Dr Gordon. Pt tolerating current setting well. No new order.
--- NOTE | 2020-06-15 11:25 | NUR ---
Received order to DC contact and droplet isolation for Covid-19 observation. Pt has tested negative for 14 days. Offered to take pt to the shower but she refused shower. Encouraged her but she still refused. Bed bath given. Room was cleaned.
--- NOTE | 2020-06-15 11:43 | NUR ---
Pt.'s daughter, Adan Andrew [phone] gave SW verbal consent to enroll pt. & family in [employer] [facility]. SW completed enrollment.
--- NOTE | 2020-06-15 11:46 | NUR ---
AZEB notified the pt.'s daughter, Adan P. [phone] that she will be the only one to receive medical updates regarding pt.'s care and she can disburse the information to remaining family as she sees fit. AZEB notified Adan that pt.'s friend, Rani Mooney called asking for medical updates. Adan expressed understanding. SW will be available as needed.
[2020-06-15] MEDS: GLUCERNA 1.2 1,000 ML BOTTLE NG PRN (14:27)
--- NOTE | 2020-06-15 14:55 | NUR ---
Patient is calm no complain, shes watching TV and looks comfortable while in bed.
[2020-06-15 17:02] LABS: BILIRUBIN,URINE NEGATIVE (NEGATIVE); COLOR,URINE YELLOW (YELLOW); LEUKOCYTE ESTERASE ,URINE MODERATE (NEGATIVE); NITRITE, URINE NEGATIVE (NEGATIVE); PH,URINE 7.5 (5.0-8.0); PROTEIN,URINE TRACE mg/dl (NEGATIVE); UGLUCOSE 500 MG/DL mg/dL (NEGATIVE); UROBILINOGEN,URINE 0.2 EU/dL (0.2)
[2020-06-15 17:15] LABS: BACTERIA,URINE Moderate /HPF (None Seen); SQUAMOUS EPITHELIAL CELL,UR Moderate /HPF (None Seen); YEAST,URINE Few /HPF (None Seen)
[2020-06-15] MEDS: BASAGLAR KWIKPEN SQ SCH (21:03)
[2020-06-16] VITALS (7 sets, daily range): BP systolic 90–140; BP diastolic 62–80
[2020-06-16] MEDS: BLOOD SUGAR DIAGNOSTIC 1 EACH STRIP IN SCH ×5 (00:10→23:32)
[2020-06-16] MEDS: INSULIN REGULAR, HUMAN 100 UNIT/ML 3 ML VIAL SQ PRN ×5 (00:10→23:34)
[2020-06-16] MEDS: IPRATROPIUM NEB FS 0.5 MG/2.5 ML AMPUL.NEB NEB SCH ×4 (01:19→19:34)
[2020-06-16] MEDS: ALBUTEROL FS 2.5 MG/0.5 ML VIAL.NEB NEB SCH ×4 (01:19→19:34)
[2020-06-16] MEDS: HYDROCODONE/APAP 5/325MG TABLET GT PRN ×3 (03:04→16:24)
[2020-06-16] MEDS: OMEPRAZOLE 20 MG CAPSULE.DR GT SCH (05:16)
[2020-06-16] MEDS: GLUCERNA 1.2 1,000 ML BOTTLE NG PRN ×2 (05:21→22:44)
[2020-06-16] MEDS: CREON GT SCH ×3 (08:18→17:14)
[2020-06-16] MEDS: PROPRANOLOL HCL 40 MG TABLET GT SCH (08:18)
[2020-06-16] MEDS: ACIDOPHILUS/BULGARICUS 1 EACH TAB.CHEW GT SCH ×2 (08:18→21:24)
[2020-06-16] MEDS: LOSARTAN POTASSIUM 50 MG TABLET GT SCH (08:18)
[2020-06-16] MEDS: MULTIVIT W/MINERALS 1 TAB TABLET GT SCH (08:19)
[2020-06-16] MEDS: AMLODIPINE BESYLATE 5 MG TABLET GT SCH (08:19)
[2020-06-16] MEDS: ASCORBIC ACID 500 MG TABLET GT SCH (08:19)
[2020-06-16] MEDS: SERTRALINE HCL 50 MG TABLET GT SCH (08:19)
[2020-06-16] MEDS: ENOXAPARIN SODIUM 40 MG/0.4 ML DISP.SYRIN SQ SCH (08:19)
[2020-06-16] MEDS: ZINC SULFATE 220 MG CAPSULE GT SCH (08:19)
[2020-06-16] MEDS: PROSOURCE / PROSTAT (PYXIS) 30 ML UDC GT SCH ×3 (08:19→17:14)
[2020-06-16] MEDS: VITAMINS A AND D 56.7 GM TUBE TP SCH ×2 (08:20→21:25)
[2020-06-16] MEDS: Z GUARD REMEDY 4 OZ OINT TP SCH ×2 (08:20→21:25)
[2020-06-16] MEDS: CLOTRIMAZOLE 1% 15 GM TUBE TP SCH ×2 (08:20→21:25)
[2020-06-16] MEDS: HYDROGEN PEROXIDE 480 ML BOTTLE TP SCH ×2 (08:44→19:34)
[2020-06-16] MEDS: HYDROGEL DRESSING 90 GM TUBE TP SCH ×2 (09:00→21:25)
--- NOTE | 2020-06-16 12:30 | NUR ---
Patient complaining of cough and noticed spitting saliva, obtained cough medication order from Dr. Qureshi. Patient's daughter Adan barrera.
[2020-06-16] MEDS: GUAIFENESIN 300 MG/15 ML UDC GT PRN (12:33)
--- NOTE | 2020-06-16 14:57 | NUR ---
Resident is sleeping in the morning ,visited after lunch looking comfortable in bed while watching tv.No complain at all.
--- NOTE | 2020-06-16 14:59 | NUR ---
Check-in: Pt. is awake, alert & oriented x 4. Pt. makes avoidant eye contact. Pt. stated she has not noticed if the psych. medications have been helping her. However, pt. stated she is experiencing fleeting SI but not daily. Noted. Pt. appears with depressed affect. SW completed individual therapy. Pt. discussed mental health Hx. SW provided emotional support. Pt. stated thank you. SW discussed [employer] communication system with pt. Pt. agreeable that he sister, Kimberlee & daughters, Adan & Geovanna receive updates via [employer]. Per Adan request, SW asked pt. if she would like her 2 close friends to receive updates via [employer]. Pt. declined. Pt. stated, I only want my family on there. Noted. Plan: SW will continue to provide clinical intervention through active listening in individual therapy as needed and promote interaction with support system. SW will continue to encourage pt. to participate in her rehab plan and SW will continue to assess for level of SI.
--- NOTE | 2020-06-16 15:31 | NUR ---
Facility Update: SW sent the pt.'s family, Adan, Geovanna & Kimberlee a message via [employer] informing them that "No [facility] Sub-Acute residents or employees tested positive for COVID-19 this week. As recommended by [facility], all Sub-Acute residents & healthcare personnel will continue receiving response testing. [facility] continues to follow infection control protocols and screen our residents and staff daily for symptoms".
[2020-06-16] MEDS: LORAZEPAM 1 MG TABLET GT PRN (17:14)
[2020-06-16] MEDS: BASAGLAR KWIKPEN SQ SCH (21:44)
[2020-06-16] MEDS: TEMAZEPAM 15 MG CAPSULE GT PRN (22:07)
[2020-06-17] VITALS (7 sets, daily range): BP systolic 111–128; BP diastolic 63–78
[2020-06-17] MEDS: ALBUTEROL FS 2.5 MG/0.5 ML VIAL.NEB NEB SCH ×4 (01:44→19:44)
[2020-06-17] MEDS: IPRATROPIUM NEB FS 0.5 MG/2.5 ML AMPUL.NEB NEB SCH ×4 (01:44→19:44)
[2020-06-17] MEDS: HYDROCODONE/APAP 5/325MG TABLET GT PRN ×3 (02:17→16:33)
[2020-06-17] MEDS: MAG HYDROX/AL HYDROX/SIMETH 30 ML UDC GT PRN (04:30)
[2020-06-17] MEDS: BLOOD SUGAR DIAGNOSTIC 1 EACH STRIP IN SCH ×4 (05:54→23:55)
[2020-06-17] MEDS: OMEPRAZOLE 20 MG CAPSULE.DR GT SCH (05:54)
[2020-06-17] MEDS: INSULIN REGULAR, HUMAN 100 UNIT/ML 3 ML VIAL SQ PRN ×4 (05:56→23:56)
[2020-06-17] MEDS: LOSARTAN POTASSIUM 50 MG TABLET GT SCH (08:46)
[2020-06-17] MEDS: ASCORBIC ACID 500 MG TABLET GT SCH (08:46)
[2020-06-17] MEDS: ZINC SULFATE 220 MG CAPSULE GT SCH (08:46)
[2020-06-17] MEDS: ACIDOPHILUS/BULGARICUS 1 EACH TAB.CHEW GT SCH ×2 (08:46→20:53)
[2020-06-17] MEDS: PROPRANOLOL HCL 40 MG TABLET GT SCH (08:46)
[2020-06-17] MEDS: SERTRALINE HCL 50 MG TABLET GT SCH (08:46)
[2020-06-17] MEDS: MULTIVIT W/MINERALS 1 TAB TABLET GT SCH (08:46)
[2020-06-17] MEDS: ENOXAPARIN SODIUM 40 MG/0.4 ML DISP.SYRIN SQ SCH (08:46)
[2020-06-17] MEDS: CLOTRIMAZOLE 1% 15 GM TUBE TP SCH ×2 (08:46→20:53)
[2020-06-17] MEDS: AMLODIPINE BESYLATE 5 MG TABLET GT SCH (08:46)
[2020-06-17] MEDS: CREON GT SCH ×3 (08:46→16:33)
[2020-06-17] MEDS: Z GUARD REMEDY 4 OZ OINT TP SCH ×2 (08:46→20:53)
[2020-06-17] MEDS: PROSOURCE / PROSTAT (PYXIS) 30 ML UDC GT SCH ×3 (08:46→16:33)
[2020-06-17] MEDS: HYDROGEL DRESSING 90 GM TUBE TP SCH ×2 (08:46→20:53)
[2020-06-17] MEDS: VITAMINS A AND D 56.7 GM TUBE TP SCH ×2 (08:47→20:53)
[2020-06-17] MEDS: HYDROGEN PEROXIDE 480 ML BOTTLE TP SCH ×2 (09:00→19:44)
--- NOTE | 2020-06-17 09:10 | NUR ---
Late entry for 06/15/20 Clarified sacral wound order. Pt admitted with unstageable sacral wound. DON Trinidad debrided sacral wound last week and called it a Stage 4 wound.
[2020-06-17] MEDS: METOCLOPRAMIDE HCL 10 MG TABLET GT PRN (09:15)
[2020-06-17 10:17] LABS: ABG BASE EXCESS 5.1 mmol/L; ABG OXYGEN SATURATION 98.5 % (92.0-98.5); ABG PCO2 44.1 mmHg (35.0-45.0); ABG PH 7.446 (7.350-7.450); AaDO2 105.5 mmHg; COHb 0.3 % (0.5-1.5); MetHb 0.1 % (0.0-1.5); O2Hb 98.1 % (94.0-97.0); SITE, ABG Right Femoral; VENT MODE, BG SIMV 4 550 40% PS 15 +5
--- NOTE | 2020-06-17 11:01 | NUR ---
Pt was placed on SIMV 4 PS 15 FiO2 40% PEEP +5, tolerating well. Relayed ABG result to Dr Gordon. No new order.
[2020-06-17] MEDS: LORAZEPAM 1 MG TABLET GT PRN (12:29)
[2020-06-17] MEDS: GLUCERNA 1.2 1,000 ML BOTTLE NG PRN (15:00)
--- NOTE | 2020-06-17 16:02 | NUR ---
Pt. Check-in: AZEB met with pt. bedside and facilitated video call with the pt.s mother & sister, Kimberlee Baidllo [phone]. Pt. receptive. AZEB observed pt. smiling. Family thanked SW. AZEB processed pt.s feelings about family stating they cant wait to have her return home. Pt. stated, I dont have a home. AZEB inquired if pt. was living with daughter, Adan prior to admission. Pt. nodded yes and used paper & pen to specify that she filed for divorce, lost her home and was living in a [place] in [facility]. SW inquired if she can go live with daughter, Geovanna or sister, Kimberlee. Pt. gestured no and mouthed . Pt. wrote that in the future she would want to have her own place. AZEB informed pt. that when discharge planning has commenced SW will collaborate with the interdisciplinary team to ensure safe & proper discharge plans. AZEB used active listening, validation and encouraged pt. to continue participate in her plan of care to rehabilitate. Pt. nodded yes. During video call, the pt.s family asked pt. if she is able to watch TV/movies and or read as a pastime. Pt. responded no. AZEB informed pt. that she has access to her iPad with ASP64 for movies and the TV in her room. Pt. stated, it is too hard for me to concentrate when watching the iPad so I just watch the TV instead. Noted. AZEB informed pt. that the pool coordinator is also available to assist if pt. wants to read or do other activities. Pt. expressed understanding. Pt. stated, I just didnt want to disclose too much to my family. Plan: AZEB will continue to provide clinical intervention through active listening in individual therapy as needed and promote interaction with support system. AZEB will continue to encourage pt. to participate in her rehab plan and AZEB will continue to assess for level of SI.
--- NOTE | 2020-06-17 17:10 | NUR ---
Pt was seen by Dr Qureshi on 06/15/20 and she asked him for Morphine, saying she has been on it for [address] Qureshi told her he will review her medications. Followed up Morphine with Dr Qureshi and also asked if pt should be given a routine pain medication prior to wound treatment. Pt has a Stage [address] Qureshi ordered to give MS Contin 15 mg GT q 12 hours. He also ordered to give Tylenol q shift prior to wound treatment. Pt was informed of new orders. She said she does not want to receive Tylenol as it does not work for her. She said she can just have the MS Contin q 12 hours and Erwinna for breakthrough pain management. Pt said she has been taking Morphine in the morning and at bedtime, as well as Erwinna four times a day for [address] Qureshi of what the pt said. He ordered to DC Tylenol and change Erwinna 5/325 mg GT q 4 to q 6 PRN.
--- NOTE | 2020-06-17 18:29 | NUR ---
Pharmacy said MS Contin cannot be crushed. Pt can only take medications via G-tube, she is unable to take medications orally. Left message for Dr Qureshi.
[2020-06-17] MEDS: GUAIFENESIN 300 MG/15 ML UDC GT PRN (19:19)
[2020-06-17] MEDS: MORPHINE SULFATE IR 15 MG TABLET GT SCH (20:00)
[2020-06-17] MEDS ORDERED: MORPHINE SULFATE SR 15 MG TABLET.SA PO SCH (21:00)
[2020-06-17] MEDS ORDERED: ACETAMINOPHEN 650 MG/20 ML UDC- SA PATIENTS-PAIN ONLY GT SCH (21:00)
[2020-06-17] MEDS: TEMAZEPAM 15 MG CAPSULE GT PRN (21:03)
[2020-06-17] MEDS: BASAGLAR KWIKPEN SQ SCH (21:03)
[2020-06-18] VITALS (7 sets, daily range): BP systolic 109–128; BP diastolic 58–78
[2020-06-18] MEDS: IPRATROPIUM NEB FS 0.5 MG/2.5 ML AMPUL.NEB NEB SCH ×4 (01:44→19:44)
[2020-06-18] MEDS: ALBUTEROL FS 2.5 MG/0.5 ML VIAL.NEB NEB SCH ×4 (01:44→19:44)
[2020-06-18] MEDS: MORPHINE SULFATE IR 15 MG TABLET GT SCH ×3 (02:00→17:56)
[2020-06-18] MEDS: HYDROCODONE/APAP 5/325MG TABLET GT PRN ×2 (02:33→07:53)
--- NOTE | 2020-06-18 02:47 | NUR ---
Unable to administer Morphine Sulfate meds not available ,per Hank waiting for authorization from .Will follow up.
[2020-06-18] MEDS: GUAIFENESIN 300 MG/15 ML UDC GT PRN ×3 (03:06→15:48)
[2020-06-18] MEDS: BLOOD SUGAR DIAGNOSTIC 1 EACH STRIP IN SCH ×3 (05:54→18:16)
[2020-06-18] MEDS: OMEPRAZOLE 20 MG CAPSULE.DR GT SCH (05:54)
[2020-06-18] MEDS: INSULIN REGULAR, HUMAN 100 UNIT/ML 3 ML VIAL SQ PRN ×3 (05:55→18:18)
[2020-06-18] MEDS: AMLODIPINE BESYLATE 5 MG TABLET GT SCH (08:54)
[2020-06-18] MEDS: ACIDOPHILUS/BULGARICUS 1 EACH TAB.CHEW GT SCH ×2 (08:54→21:32)
[2020-06-18] MEDS: ZINC SULFATE 220 MG CAPSULE GT SCH (08:54)
[2020-06-18] MEDS: CREON GT SCH ×3 (08:54→17:55)
[2020-06-18] MEDS: PROPRANOLOL HCL 40 MG TABLET GT SCH (08:54)
[2020-06-18] MEDS: ASCORBIC ACID 500 MG TABLET GT SCH (08:54)
[2020-06-18] MEDS: MULTIVIT W/MINERALS 1 TAB TABLET GT SCH (08:54)
[2020-06-18] MEDS: PROSOURCE / PROSTAT (PYXIS) 30 ML UDC GT SCH ×3 (08:54→17:55)
[2020-06-18] MEDS: LOSARTAN POTASSIUM 50 MG TABLET GT SCH (08:54)
[2020-06-18] MEDS: SERTRALINE HCL 50 MG TABLET GT SCH (08:55)
[2020-06-18] MEDS: ENOXAPARIN SODIUM 40 MG/0.4 ML DISP.SYRIN SQ SCH (08:55)
[2020-06-18] MEDS: HYDROGEN PEROXIDE 480 ML BOTTLE TP SCH ×2 (09:00→19:44)
[2020-06-18] MEDS: Z GUARD REMEDY 4 OZ OINT TP SCH ×2 (09:00→21:33)
[2020-06-18] MEDS: VITAMINS A AND D 56.7 GM TUBE TP SCH ×2 (09:00→21:34)
[2020-06-18] MEDS: CLOTRIMAZOLE 1% 15 GM TUBE TP SCH ×2 (09:00→21:32)
[2020-06-18] MEDS: HYDROGEL DRESSING 90 GM TUBE TP SCH (09:00)
[2020-06-18] MEDS: ONDANSETRON 4 MG TAB.RAPDIS GT PRN (10:16)
[2020-06-18] MEDS: GLUCERNA 1.2 1,000 ML BOTTLE NG PRN (10:27)
--- NOTE | 2020-06-18 15:01 | NUR ---
Resident is coughing and ask for medicine.She walk today for a short exercise.all is well with her.
[2020-06-18] MEDS: THERAHONEY GEL 1.5 OZ TUBE TP SCH (21:34)
[2020-06-18] MEDS: TEMAZEPAM 15 MG CAPSULE GT PRN (21:34)
[2020-06-18] MEDS: BASAGLAR KWIKPEN SQ SCH (21:34)
[2020-06-19] VITALS (7 sets, daily range): BP systolic 94–114; BP diastolic 59–71
[2020-06-19] MEDS: MORPHINE SULFATE IR 15 MG TABLET GT SCH ×4 (00:20→18:34)
[2020-06-19] MEDS: BLOOD SUGAR DIAGNOSTIC 1 EACH STRIP IN SCH ×4 (00:20→18:34)
[2020-06-19] MEDS: INSULIN REGULAR, HUMAN 100 UNIT/ML 3 ML VIAL SQ PRN ×4 (00:22→18:35)
[2020-06-19] MEDS: GUAIFENESIN 300 MG/15 ML UDC GT PRN ×5 (01:38→23:56)
[2020-06-19] MEDS: ALBUTEROL FS 2.5 MG/0.5 ML VIAL.NEB NEB SCH ×4 (01:49→19:18)
[2020-06-19] MEDS: IPRATROPIUM NEB FS 0.5 MG/2.5 ML AMPUL.NEB NEB SCH ×4 (01:49→19:18)
[2020-06-19] MEDS: GLUCERNA 1.2 1,000 ML BOTTLE NG PRN ×2 (05:36→18:13)
[2020-06-19] MEDS: OMEPRAZOLE 20 MG CAPSULE.DR GT SCH (06:05)
[2020-06-19] MEDS: Z GUARD REMEDY 4 OZ OINT TP SCH ×2 (09:00→21:23)
[2020-06-19] MEDS: VITAMINS A AND D 56.7 GM TUBE TP SCH ×2 (09:00→21:24)
[2020-06-19] MEDS: CLOTRIMAZOLE 1% 15 GM TUBE TP SCH ×2 (09:00→21:23)
[2020-06-19] MEDS: THERAHONEY GEL 1.5 OZ TUBE TP SCH ×2 (09:00→21:24)
[2020-06-19] MEDS: PROSOURCE / PROSTAT (PYXIS) 30 ML UDC GT SCH ×3 (09:26→17:45)
[2020-06-19] MEDS: LOSARTAN POTASSIUM 50 MG TABLET GT SCH (09:26)
[2020-06-19] MEDS: SERTRALINE HCL 50 MG TABLET GT SCH (09:26)
[2020-06-19] MEDS: ZINC SULFATE 220 MG CAPSULE GT SCH (09:26)
[2020-06-19] MEDS: MULTIVIT W/MINERALS 1 TAB TABLET GT SCH (09:26)
[2020-06-19] MEDS: PROPRANOLOL HCL 40 MG TABLET GT SCH (09:26)
[2020-06-19] MEDS: AMLODIPINE BESYLATE 5 MG TABLET GT SCH (09:26)
[2020-06-19] MEDS: CREON GT SCH ×3 (09:26→17:45)
[2020-06-19] MEDS: ACIDOPHILUS/BULGARICUS 1 EACH TAB.CHEW GT SCH ×2 (09:26→21:23)
[2020-06-19] MEDS: ASCORBIC ACID 500 MG TABLET GT SCH (09:26)
[2020-06-19] MEDS: ENOXAPARIN SODIUM 40 MG/0.4 ML DISP.SYRIN SQ SCH (09:27)
[2020-06-19] MEDS: HYDROGEN PEROXIDE 480 ML BOTTLE TP SCH ×2 (09:42→21:00)
--- NOTE | 2020-06-19 11:30 | NUR ---
Roger catheter was bypassing urine, reinserted new f/c, tolerated well, draining yellow colored urine, denies pain, no hematuria noted. Will continue to monitor.
--- NOTE | 2020-06-19 14:40 | NUR ---
Resident is calm and watching tv , She requested for cough syrup since she"s been coughing lately. All is well with her today.
[2020-06-19] MEDS: TEMAZEPAM 15 MG CAPSULE GT PRN (21:00)
[2020-06-19] MEDS: BASAGLAR KWIKPEN SQ SCH (21:24)
[2020-06-20] VITALS (7 sets, daily range): BP systolic 100–116; BP diastolic 54–73
[2020-06-20] MEDS: INSULIN REGULAR, HUMAN 100 UNIT/ML 3 ML VIAL SQ PRN ×4 (00:12→17:39)
[2020-06-20] MEDS: MORPHINE SULFATE IR 15 MG TABLET GT SCH ×4 (00:12→17:38)
[2020-06-20] MEDS: BLOOD SUGAR DIAGNOSTIC 1 EACH STRIP IN SCH ×4 (00:12→17:38)
[2020-06-20] MEDS: ALBUTEROL FS 2.5 MG/0.5 ML VIAL.NEB NEB SCH ×4 (02:20→19:29)
[2020-06-20] MEDS: IPRATROPIUM NEB FS 0.5 MG/2.5 ML AMPUL.NEB NEB SCH ×4 (02:20→19:29)
[2020-06-20] MEDS: HYDROCODONE/APAP 5/325MG TABLET GT PRN ×3 (04:40→22:30)
[2020-06-20] MEDS: OMEPRAZOLE 20 MG CAPSULE.DR GT SCH (06:09)
[2020-06-20] MEDS: GUAIFENESIN 300 MG/15 ML UDC GT PRN ×2 (06:45→12:36)
[2020-06-20] MEDS: ASCORBIC ACID 500 MG TABLET GT SCH (09:00)
[2020-06-20] MEDS: HYDROGEN PEROXIDE 480 ML BOTTLE TP SCH ×2 (09:00→19:29)
[2020-06-20] MEDS: MULTIVIT W/MINERALS 1 TAB TABLET GT SCH (09:00)
[2020-06-20] MEDS: PROSOURCE / PROSTAT (PYXIS) 30 ML UDC GT SCH ×3 (09:00→17:38)
[2020-06-20] MEDS: SERTRALINE HCL 50 MG TABLET GT SCH (09:00)
[2020-06-20] MEDS: ZINC SULFATE 220 MG CAPSULE GT SCH (09:00)
[2020-06-20] MEDS: ENOXAPARIN SODIUM 40 MG/0.4 ML DISP.SYRIN SQ SCH (09:00)
[2020-06-20] MEDS: CREON GT SCH ×3 (09:59→17:38)
[2020-06-20] MEDS: LOSARTAN POTASSIUM 50 MG TABLET GT SCH (09:59)
[2020-06-20] MEDS: PROPRANOLOL HCL 40 MG TABLET GT SCH (09:59)
[2020-06-20] MEDS: ACIDOPHILUS/BULGARICUS 1 EACH TAB.CHEW GT SCH ×2 (09:59→20:33)
[2020-06-20] MEDS: AMLODIPINE BESYLATE 5 MG TABLET GT SCH (10:00)
[2020-06-20] MEDS: METOCLOPRAMIDE HCL 10 MG TABLET GT PRN (10:11)
[2020-06-20] MEDS: GLUCERNA 1.2 1,000 ML BOTTLE NG PRN (12:29)
[2020-06-20] MEDS: CLOTRIMAZOLE 1% 15 GM TUBE TP SCH ×2 (16:47→20:33)
[2020-06-20] MEDS: Z GUARD REMEDY 4 OZ OINT TP SCH ×2 (16:47→20:34)
[2020-06-20] MEDS: THERAHONEY GEL 1.5 OZ TUBE TP SCH ×2 (16:47→20:34)
[2020-06-20] MEDS: VITAMINS A AND D 56.7 GM TUBE TP SCH ×2 (16:47→20:34)
[2020-06-20] MEDS: LORAZEPAM 1 MG TABLET GT PRN (18:09)
[2020-06-20] MEDS: TEMAZEPAM 15 MG CAPSULE GT PRN (21:00)
[2020-06-20] MEDS: BASAGLAR KWIKPEN SQ SCH (21:37)
[2020-06-21] VITALS (8 sets, daily range): BP systolic 96–119; BP diastolic 55–76
[2020-06-21] MEDS: BLOOD SUGAR DIAGNOSTIC 1 EACH STRIP IN SCH ×5 (00:12→23:18)
[2020-06-21] MEDS: MORPHINE SULFATE IR 15 MG TABLET GT SCH ×4 (00:12→17:45)
[2020-06-21] MEDS: INSULIN REGULAR, HUMAN 100 UNIT/ML 3 ML VIAL SQ PRN ×5 (00:13→23:19)
[2020-06-21] MEDS: ALBUTEROL FS 2.5 MG/0.5 ML VIAL.NEB NEB SCH ×4 (01:15→19:26)
[2020-06-21] MEDS: IPRATROPIUM NEB FS 0.5 MG/2.5 ML AMPUL.NEB NEB SCH ×4 (01:15→19:26)
[2020-06-21] MEDS: HYDROCODONE/APAP 5/325MG TABLET GT PRN ×3 (04:14→21:08)
[2020-06-21] MEDS: OMEPRAZOLE 20 MG CAPSULE.DR GT SCH (05:47)
[2020-06-21] MEDS: GLUCERNA 1.2 1,000 ML BOTTLE NG PRN ×2 (06:13→17:55)
[2020-06-21] MEDS: HYDROGEN PEROXIDE 480 ML BOTTLE TP SCH ×2 (08:23→23:00)
[2020-06-21] MEDS: ACIDOPHILUS/BULGARICUS 1 EACH TAB.CHEW GT SCH ×2 (08:58→21:09)
[2020-06-21] MEDS: PROPRANOLOL HCL 40 MG TABLET GT SCH (08:58)
[2020-06-21] MEDS: LOSARTAN POTASSIUM 50 MG TABLET GT SCH (08:58)
[2020-06-21] MEDS: CREON GT SCH ×3 (08:58→16:44)
[2020-06-21] MEDS: MULTIVIT W/MINERALS 1 TAB TABLET GT SCH (08:59)
[2020-06-21] MEDS: THERAHONEY GEL 1.5 OZ TUBE TP SCH ×2 (08:59→21:09)
[2020-06-21] MEDS: VITAMINS A AND D 56.7 GM TUBE TP SCH ×2 (08:59→21:09)
[2020-06-21] MEDS: CLOTRIMAZOLE 1% 15 GM TUBE TP SCH ×2 (08:59→21:09)
[2020-06-21] MEDS: SERTRALINE HCL 50 MG TABLET GT SCH (08:59)
[2020-06-21] MEDS: PROSOURCE / PROSTAT (PYXIS) 30 ML UDC GT SCH ×3 (08:59→16:44)
[2020-06-21] MEDS: ENOXAPARIN SODIUM 40 MG/0.4 ML DISP.SYRIN SQ SCH (08:59)
[2020-06-21] MEDS: AMLODIPINE BESYLATE 5 MG TABLET GT SCH (08:59)
[2020-06-21] MEDS: Z GUARD REMEDY 4 OZ OINT TP SCH ×2 (08:59→21:09)
[2020-06-21] MEDS: ZINC SULFATE 220 MG CAPSULE GT SCH (08:59)
[2020-06-21] MEDS: ASCORBIC ACID 500 MG TABLET GT SCH (08:59)
[2020-06-21] MEDS: GUAIFENESIN 300 MG/15 ML UDC GT PRN ×2 (12:15→17:51)
[2020-06-21] MEDS: MAG HYDROX/AL HYDROX/SIMETH 30 ML UDC GT PRN (17:49)
[2020-06-21] MEDS: BASAGLAR KWIKPEN SQ SCH (21:47)
[2020-06-21] MEDS: TEMAZEPAM 15 MG CAPSULE GT PRN (21:48)
[2020-06-22] VITALS (7 sets, daily range): BP systolic 100–128; BP diastolic 55–69
[2020-06-22] MEDS: MORPHINE SULFATE IR 15 MG TABLET GT SCH ×5 (00:09→23:50)
[2020-06-22] MEDS: IPRATROPIUM NEB FS 0.5 MG/2.5 ML AMPUL.NEB NEB SCH ×4 (01:32→19:43)
[2020-06-22] MEDS: ALBUTEROL FS 2.5 MG/0.5 ML VIAL.NEB NEB SCH ×4 (01:32→19:43)
[2020-06-22] MEDS: HYDROCODONE/APAP 5/325MG TABLET GT PRN ×2 (04:00→18:42)
[2020-06-22] MEDS: BLOOD SUGAR DIAGNOSTIC 1 EACH STRIP IN SCH ×4 (05:23→23:50)
[2020-06-22] MEDS: OMEPRAZOLE 20 MG CAPSULE.DR GT SCH (05:23)
[2020-06-22] MEDS: INSULIN REGULAR, HUMAN 100 UNIT/ML 3 ML VIAL SQ PRN ×4 (05:24→23:50)
[2020-06-22] MEDS: CREON GT SCH ×3 (08:55→16:48)
[2020-06-22] MEDS: LOSARTAN POTASSIUM 50 MG TABLET GT SCH (08:55)
[2020-06-22] MEDS: ACIDOPHILUS/BULGARICUS 1 EACH TAB.CHEW GT SCH ×2 (08:55→21:40)
[2020-06-22] MEDS: PROPRANOLOL HCL 40 MG TABLET GT SCH (08:55)
[2020-06-22] MEDS: AMLODIPINE BESYLATE 5 MG TABLET GT SCH (08:56)
[2020-06-22] MEDS: MULTIVIT W/MINERALS 1 TAB TABLET GT SCH (08:56)
[2020-06-22] MEDS: ENOXAPARIN SODIUM 40 MG/0.4 ML DISP.SYRIN SQ SCH (08:56)
[2020-06-22] MEDS: ASCORBIC ACID 500 MG TABLET GT SCH (08:56)
[2020-06-22] MEDS: PROSOURCE / PROSTAT (PYXIS) 30 ML UDC GT SCH ×3 (08:56→16:48)
[2020-06-22] MEDS: ZINC SULFATE 220 MG CAPSULE GT SCH (08:56)
[2020-06-22] MEDS: SERTRALINE HCL 50 MG TABLET GT SCH (08:56)
[2020-06-22] MEDS: THERAHONEY GEL 1.5 OZ TUBE TP SCH ×2 (09:00→21:40)
[2020-06-22] MEDS: HYDROGEN PEROXIDE 480 ML BOTTLE TP SCH ×2 (09:00→21:06)
[2020-06-22] MEDS: Z GUARD REMEDY 4 OZ OINT TP SCH ×2 (09:00→21:40)
[2020-06-22] MEDS: VITAMINS A AND D 56.7 GM TUBE TP SCH ×2 (09:00→21:40)
[2020-06-22] MEDS: CLOTRIMAZOLE 1% 15 GM TUBE TP SCH ×2 (09:00→21:40)
[2020-06-22] MEDS: MAG HYDROX/AL HYDROX/SIMETH 30 ML UDC GT PRN (12:30)
--- NOTE | 2020-06-22 14:17 | NUR ---
Resident is lying in bed comfortably while watching tv.complain about her tummy.Refused to participate in other activities.
--- NOTE | 2020-06-22 16:27 | NUR ---
Notified Dr Qureshi that pt is complaining of pain underneath her G-tube site. Abdomen is soft, no distention, pt has regular bowel movements. Pt was already given Maalox, MOM, and Morphine but still complaining of pain. Dr Qureshi ordered to do CT scan of abdomen, but informed him that authorization from insurance is needed and will probably not be obtained today. He ordered to do a KUB. Pt aware of new order.
--- NOTE | 2020-06-22 16:33 | NUR ---
Pt. Check-in: SW met with the pt. at bedside. SW used mood board to assess pt.s mood. Pt. expressed that she feels angry, sad, & depressed. SW explored triggers. Pt. expressed that loss of abilities, being dependent with ADLs and pain being triggers. SW validated & normalized feeling & triggers. SW explored pt.s current coping mechanism. Pt. stated spending time with animal and with friends helps her de-stress. SW used active listening & educated pt. on positive coping mechanisms. Pt. was receptive and stated that discussing with SW helps. Noted. SW informed pt. that SW can facilitate call with friends or family as needed. Pt. is agreeable and will inform SW when she wants to do video call again. Plan: SW will continue to provide clinical intervention through active listening in individual therapy as needed and promote interaction with support system. SW will continue to encourage pt. to participate in her rehab plan and SW will continue to assess for level of SI.
[2020-06-22] MEDS: GLUCERNA 1.2 1,000 ML BOTTLE NG PRN (16:48)
[2020-06-22] MEDS: METOCLOPRAMIDE HCL 10 MG TABLET GT PRN (17:42)
--- NOTE | 2020-06-22 18:38 | NUR ---
Called Radiology and was told that they are very busy that is why they have not yet done pt's KUB. Informed them that pt is complaining of abdominal pain and waiting for KUB to be done. Radiology said they will try to do the KUB tonight.
[2020-06-22] MEDS: BASAGLAR KWIKPEN SQ SCH (21:40)
[2020-06-22] MEDS: TEMAZEPAM 15 MG CAPSULE GT PRN (21:41)
[2020-06-23] VITALS (8 sets, daily range): BP systolic 102–132; BP diastolic 62–79
[2020-06-23] MEDS: ALBUTEROL FS 2.5 MG/0.5 ML VIAL.NEB NEB SCH ×4 (01:24→19:30)
[2020-06-23] MEDS: IPRATROPIUM NEB FS 0.5 MG/2.5 ML AMPUL.NEB NEB SCH ×4 (01:24→19:30)
[2020-06-23] MEDS: HYDROCODONE/APAP 5/325MG TABLET GT PRN (04:47)
[2020-06-23] MEDS: OMEPRAZOLE 20 MG CAPSULE.DR GT SCH (05:45)
[2020-06-23] MEDS: BLOOD SUGAR DIAGNOSTIC 1 EACH STRIP IN SCH ×3 (05:45→18:03)
[2020-06-23] MEDS: MORPHINE SULFATE IR 15 MG TABLET GT SCH ×3 (05:45→18:03)
[2020-06-23] MEDS: HYDROGEN PEROXIDE 480 ML BOTTLE TP SCH ×2 (08:37→21:28)
--- NOTE | 2020-06-23 08:55 | NUR ---
Relayed KUB result to Dr. Qureshi. Patient still complaining of abdominal pain 7/[address] Qureshi ordered CT scan of abdomen/pelvis without contrast diagnosis abdominal pain. Resident informed. Requested outpatient account from admitting office.
[2020-06-23] MEDS: MULTIVIT W/MINERALS 1 TAB TABLET GT SCH (09:00)
[2020-06-23] MEDS: THERAHONEY GEL 1.5 OZ TUBE TP SCH ×2 (09:00→21:51)
[2020-06-23] MEDS: ASCORBIC ACID 500 MG TABLET GT SCH (09:00)
[2020-06-23] MEDS: CREON GT SCH ×3 (09:00→17:00)
[2020-06-23] MEDS: ENOXAPARIN SODIUM 40 MG/0.4 ML DISP.SYRIN SQ SCH (09:00)
[2020-06-23] MEDS: SERTRALINE HCL 50 MG TABLET GT SCH (09:00)
[2020-06-23] MEDS: LOSARTAN POTASSIUM 50 MG TABLET GT SCH (09:00)
[2020-06-23] MEDS: CLOTRIMAZOLE 1% 15 GM TUBE TP SCH ×2 (09:00→21:51)
[2020-06-23] MEDS: PROPRANOLOL HCL 40 MG TABLET GT SCH (09:00)
[2020-06-23] MEDS: AMLODIPINE BESYLATE 5 MG TABLET GT SCH (09:00)
[2020-06-23] MEDS: Z GUARD REMEDY 4 OZ OINT TP SCH ×2 (09:00→21:51)
[2020-06-23] MEDS: VITAMINS A AND D 56.7 GM TUBE TP SCH ×2 (09:00→21:51)
[2020-06-23] MEDS: ZINC SULFATE 220 MG CAPSULE GT SCH (09:00)
[2020-06-23] MEDS: ACIDOPHILUS/BULGARICUS 1 EACH TAB.CHEW GT SCH ×2 (09:00→21:50)
[2020-06-23] MEDS: PROSOURCE / PROSTAT (PYXIS) 30 ML UDC GT SCH ×3 (09:00→17:00)
[2020-06-23] MEDS: INSULIN REGULAR, HUMAN 100 UNIT/ML 3 ML VIAL SQ PRN ×2 (12:42→18:04)
[2020-06-23] MEDS: GLUCERNA 1.2 1,000 ML BOTTLE NG PRN (13:01)
--- NOTE | 2020-06-23 14:20 | NUR ---
Resident is alert. Refused to do any activities..She walked today with physical therapist.
[2020-06-23] MEDS: ONDANSETRON 4 MG TAB.RAPDIS GT PRN (18:13)
--- NOTE | 2020-06-23 19:06 | NUR ---
Updated Adan (daughter) of patient's condition. Informed that patient was moved to Room 270-1 because she is off isolation. Reported also that patient ambulated with physical therapist using FWW with 2 person assist. Patient also taken to the shower, connected to ventilator assisted by two MILIEU THERAPIST and RT. Informed Adan she was complaining of abdominal pain, KUB was done but Dr. Qureshi also ordered CT scan as she continue to complain of pain and feeling nauseated. Adan said patient has a sore in the stomach and she thinks it has not healed. CT scan result pending at this time. Daughter is happy to hear of patient's activities and progress today.
[2020-06-23] MEDS: GUAIFENESIN 300 MG/15 ML UDC GT PRN (20:28)
[2020-06-23] MEDS: BASAGLAR KWIKPEN SQ SCH (21:51)
[2020-06-23] MEDS: TEMAZEPAM 15 MG CAPSULE GT PRN (21:53)
[2020-06-24] VITALS (7 sets, daily range): BP systolic 100–127; BP diastolic 60–69
[2020-06-24] MEDS: BLOOD SUGAR DIAGNOSTIC 1 EACH STRIP IN SCH ×5 (00:15→23:28)
[2020-06-24] MEDS: MORPHINE SULFATE IR 15 MG TABLET GT SCH ×5 (00:15→23:20)
[2020-06-24] MEDS: INSULIN REGULAR, HUMAN 100 UNIT/ML 3 ML VIAL SQ PRN ×5 (00:16→23:29)
[2020-06-24] MEDS: IPRATROPIUM NEB FS 0.5 MG/2.5 ML AMPUL.NEB NEB SCH ×4 (02:01→19:55)
[2020-06-24] MEDS: ALBUTEROL FS 2.5 MG/0.5 ML VIAL.NEB NEB SCH ×4 (02:01→19:55)
[2020-06-24] MEDS: HYDROCODONE/APAP 5/325MG TABLET GT PRN ×2 (03:01→12:00)
[2020-06-24] MEDS: OMEPRAZOLE 20 MG CAPSULE.DR GT SCH (05:58)
[2020-06-24] MEDS: GLUCERNA 1.2 1,000 ML BOTTLE NG PRN ×2 (05:58→23:23)
[2020-06-24] MEDS: GUAIFENESIN 300 MG/15 ML UDC GT PRN ×2 (07:11→21:53)
[2020-06-24 09:12] LABS: ABG BASE EXCESS 6.1 mmol/L; ABG OXYGEN SATURATION 99.4 % (92.0-98.5); ABG PCO2 47.8 mmHg (35.0-45.0); ABG PH 7.434 (7.350-7.450); ABG PO2 171.2 mmHg (75.0-100.0); COHb 0.7 % (0.5-1.5); MetHb 0.2 % (0.0-1.5); O2Hb 98.5 % (94.0-97.0); SITE, ABG Left Radial
[2020-06-24] MEDS: LOSARTAN POTASSIUM 50 MG TABLET GT SCH (09:21)
[2020-06-24] MEDS: HYDROGEN PEROXIDE 480 ML BOTTLE TP SCH ×2 (09:21→21:40)
--- NOTE | 2020-06-24 09:21 | NUR ---
Relayed CT abdomen result to Dr Qureshi.
[2020-06-24] MEDS: ACIDOPHILUS/BULGARICUS 1 EACH TAB.CHEW GT SCH ×2 (09:22→20:31)
[2020-06-24] MEDS: CREON GT SCH ×3 (09:22→17:00)
[2020-06-24] MEDS: PROPRANOLOL HCL 40 MG TABLET GT SCH (09:22)
[2020-06-24] MEDS: MULTIVIT W/MINERALS 1 TAB TABLET GT SCH (09:23)
[2020-06-24] MEDS: ZINC SULFATE 220 MG CAPSULE GT SCH (09:23)
[2020-06-24] MEDS: PROSOURCE / PROSTAT (PYXIS) 30 ML UDC GT SCH ×3 (09:23→17:00)
[2020-06-24] MEDS: SERTRALINE HCL 50 MG TABLET GT SCH (09:23)
[2020-06-24] MEDS: ASCORBIC ACID 500 MG TABLET GT SCH (09:23)
[2020-06-24] MEDS: AMLODIPINE BESYLATE 5 MG TABLET GT SCH (09:23)
[2020-06-24] MEDS: ENOXAPARIN SODIUM 40 MG/0.4 ML DISP.SYRIN SQ SCH (09:24)
[2020-06-24] MEDS: CLOTRIMAZOLE 1% 15 GM TUBE TP SCH ×2 (09:25→20:31)
[2020-06-24] MEDS: THERAHONEY GEL 1.5 OZ TUBE TP SCH ×2 (09:25→20:31)
[2020-06-24] MEDS: Z GUARD REMEDY 4 OZ OINT TP SCH ×2 (09:25→20:31)
[2020-06-24] MEDS: VITAMINS A AND D 56.7 GM TUBE TP SCH ×2 (09:25→20:31)
--- NOTE | 2020-06-24 09:30 | NUR ---
Pt was placed on CPAP as ordered. ABG result relayed to Dr Gordon. He said to titrate FiO2. RT Eason decreased FiO2 from 40% to 30%.
--- NOTE | 2020-06-24 10:30 | NUR ---
Dr Qureshi ordered to give Protonix and Carafate. Informed him that Protonix is usually not covered by insurance. He ordered to give Omeprazole instead of Protonix. He also said to inform Dr Gordon of pt's lung result from CT scan. Pt's last negative PCR was done on 06/21/20. Dr Gordon ordered to do CXR and he said no need for PCR.
--- NOTE | 2020-06-24 11:30 | NUR ---
Seen by CHRISTINA Adams. She is aware of pt's KUB and CT abdomen results. She ordered to give Miralax 17 gm GT daily and tap water enema x 2 today 4 hours apart. Pt tolerating CPAP well. CHRISTINA Adams ordered to place pt on cool aerosol on 06/28/20.
[2020-06-24] MEDS: SUCRALFATE 1 G/10 ML UDC GT SCH ×3 (12:56→23:19)
--- NOTE | 2020-06-24 13:30 | NUR ---
Notified Dr Gordon that CXR result is now available. He said he will view it.
--- NOTE | 2020-06-24 14:44 | NUR ---
Notified pt's daughter that pt was ambulating with PT. Requested her to bring comfortable walking shoes for pt. Also informed her of new orders.
--- NOTE | 2020-06-24 14:45 | NUR ---
Today resident was asleep in the morning. in the afternoon, she was calm and watched tv while in bedNo complain .
--- NOTE | 2020-06-24 15:30 | NUR ---
Tap water enema was administered. No output at this time.
--- NOTE | 2020-06-24 18:59 | NUR ---
Administered tap water enema this afternoon and pt just had a large bowel movement.
--- NOTE | 2020-06-24 20:00 | NUR ---
2nd Water Enema offered to pt 2x- refused, explained risks and benefits- pt still refusing, per pt she already had extra extra large bm earlier, machine staker made aware.
[2020-06-24] MEDS: BASAGLAR KWIKPEN SQ SCH (21:17)
[2020-06-24] MEDS: TEMAZEPAM 15 MG CAPSULE GT PRN (21:18)
[2020-06-25] VITALS (7 sets, daily range): BP systolic 94–119; BP diastolic 51–69
[2020-06-25] MEDS: ALBUTEROL FS 2.5 MG/0.5 ML VIAL.NEB NEB SCH ×4 (01:41→19:30)
[2020-06-25] MEDS: IPRATROPIUM NEB FS 0.5 MG/2.5 ML AMPUL.NEB NEB SCH ×4 (01:41→19:30)
[2020-06-25] MEDS: HYDROCODONE/APAP 5/325MG TABLET GT PRN ×2 (04:11→15:44)
[2020-06-25] MEDS: SUCRALFATE 1 G/10 ML UDC GT SCH ×4 (05:26→23:36)
[2020-06-25] MEDS: BLOOD SUGAR DIAGNOSTIC 1 EACH STRIP IN SCH ×4 (05:50→23:36)
[2020-06-25] MEDS: MORPHINE SULFATE IR 15 MG TABLET GT SCH ×4 (05:50→23:36)
[2020-06-25] MEDS: OMEPRAZOLE 20 MG CAPSULE.DR GT SCH (05:50)
[2020-06-25] MEDS: INSULIN REGULAR, HUMAN 100 UNIT/ML 3 ML VIAL SQ PRN ×4 (05:51→23:38)
[2020-06-25] MEDS: CREON GT SCH ×3 (09:06→17:00)
[2020-06-25] MEDS: PROPRANOLOL HCL 40 MG TABLET GT SCH (09:06)
[2020-06-25] MEDS: LOSARTAN POTASSIUM 50 MG TABLET GT SCH (09:06)
[2020-06-25] MEDS: ACIDOPHILUS/BULGARICUS 1 EACH TAB.CHEW GT SCH ×2 (09:06→21:08)
[2020-06-25] MEDS: POLYETHYLENE GLYCOL 3350 17 GM POWD.PACK GT SCH (09:06)
[2020-06-25] MEDS: ENOXAPARIN SODIUM 40 MG/0.4 ML DISP.SYRIN SQ SCH (09:07)
[2020-06-25] MEDS: MULTIVIT W/MINERALS 1 TAB TABLET GT SCH (09:07)
[2020-06-25] MEDS: ZINC SULFATE 220 MG CAPSULE GT SCH (09:07)
[2020-06-25] MEDS: THERAHONEY GEL 1.5 OZ TUBE TP SCH ×2 (09:07→21:08)
[2020-06-25] MEDS: PROSOURCE / PROSTAT (PYXIS) 30 ML UDC GT SCH ×3 (09:07→17:00)
[2020-06-25] MEDS: VITAMINS A AND D 56.7 GM TUBE TP SCH ×2 (09:07→21:08)
[2020-06-25] MEDS: Z GUARD REMEDY 4 OZ OINT TP SCH ×2 (09:07→21:08)
[2020-06-25] MEDS: ASCORBIC ACID 500 MG TABLET GT SCH (09:07)
[2020-06-25] MEDS: CLOTRIMAZOLE 1% 15 GM TUBE TP SCH ×2 (09:07→21:08)
[2020-06-25] MEDS: SERTRALINE HCL 50 MG TABLET GT SCH (09:07)
[2020-06-25] MEDS: AMLODIPINE BESYLATE 5 MG TABLET GT SCH (09:07)
[2020-06-25] MEDS: HYDROGEN PEROXIDE 480 ML BOTTLE TP SCH ×2 (09:16→21:00)
--- NOTE | 2020-06-25 11:50 | NUR ---
Seen and examined by Dr. Qureshi, assessed patient's abdomen especially around the GT area. According to patient she has history of pancreatitis. Dr. Qureshi ordered Lipase and Miralax via GT daily for constipation due to extensive stool noted from the CT scan. Resident in agreement of the treatment plan.
--- NOTE | 2020-06-25 12:01 | NUR ---
Resident was watching tv changing channels from time to time.She was quiet and no complain at all.
[2020-06-25] MEDS: LORAZEPAM 1 MG TABLET GT PRN (12:03)
--- NOTE | 2020-06-25 16:00 | NUR ---
Dr. Qureshi informed of Lipase level 13 L ([id number]/L), no new order given.
--- NOTE | 2020-06-25 16:02 | NUR ---
INTERDISCIPLINARY PLAN OF CARE CONFERENCE took place today. The patients Daughter, Adan Andrew [phone] did not participate via phone conference. Charge Nurse discussed pt. admission received first dose COVID-19 vaccine 06/10/20; Pt. making progress with PT; 06/[address] Gordon and Interdisciplinary team discussed the plan of care in detail. Current orders as well as treatments and medications were reviewed. See other disciplines IDT notes for further details.
[2020-06-25] MEDS: BASAGLAR KWIKPEN SQ SCH (21:08)
[2020-06-25] MEDS: TEMAZEPAM 15 MG CAPSULE GT PRN (21:10)
[2020-06-25] MEDS: GUAIFENESIN 300 MG/15 ML UDC GT PRN (21:54)
[2020-06-26] VITALS (8 sets, daily range): BP systolic 97–102; BP diastolic 56–66
[2020-06-26] MEDS: HYDROCODONE/APAP 5/325MG TABLET GT PRN ×3 (01:20→19:40)
[2020-06-26] MEDS: SUCRALFATE 1 G/10 ML UDC GT SCH ×4 (05:33→23:14)
[2020-06-26] MEDS: BLOOD SUGAR DIAGNOSTIC 1 EACH STRIP IN SCH ×4 (05:34→23:25)
[2020-06-26] MEDS: INSULIN REGULAR, HUMAN 100 UNIT/ML 3 ML VIAL SQ PRN ×4 (05:34→23:24)
[2020-06-26] MEDS: MORPHINE SULFATE IR 15 MG TABLET GT SCH ×4 (05:34→23:14)
[2020-06-26] MEDS: OMEPRAZOLE 20 MG CAPSULE.DR GT SCH (05:34)
[2020-06-26] MEDS: LORAZEPAM 1 MG TABLET GT PRN ×2 (05:56→18:08)
[2020-06-26] MEDS: ALBUTEROL FS 2.5 MG/0.5 ML VIAL.NEB NEB SCH ×3 (08:23→19:33)
[2020-06-26] MEDS: IPRATROPIUM NEB FS 0.5 MG/2.5 ML AMPUL.NEB NEB SCH ×3 (08:23→19:33)
[2020-06-26] MEDS: LOSARTAN POTASSIUM 50 MG TABLET GT SCH (08:58)
[2020-06-26] MEDS: AMLODIPINE BESYLATE 5 MG TABLET GT SCH (08:59)
[2020-06-26] MEDS: HYDROGEN PEROXIDE 480 ML BOTTLE TP SCH ×2 (09:00→19:33)
[2020-06-26] MEDS: ASCORBIC ACID 500 MG TABLET GT SCH (09:00)
[2020-06-26] MEDS: PROPRANOLOL HCL 40 MG TABLET GT SCH (09:00)
[2020-06-26] MEDS: ACIDOPHILUS/BULGARICUS 1 EACH TAB.CHEW GT SCH ×2 (09:00→21:14)
[2020-06-26] MEDS: MULTIVIT W/MINERALS 1 TAB TABLET GT SCH (09:00)
[2020-06-26] MEDS: PROSOURCE / PROSTAT (PYXIS) 30 ML UDC GT SCH ×3 (09:00→17:15)
[2020-06-26] MEDS: ZINC SULFATE 220 MG CAPSULE GT SCH (09:00)
[2020-06-26] MEDS: SERTRALINE HCL 50 MG TABLET GT SCH (09:00)
[2020-06-26] MEDS: POLYETHYLENE GLYCOL 3350 17 GM POWD.PACK GT SCH (09:00)
[2020-06-26] MEDS: CREON GT SCH ×3 (09:00→17:15)
[2020-06-26] MEDS: ENOXAPARIN SODIUM 40 MG/0.4 ML DISP.SYRIN SQ SCH (09:01)
[2020-06-26] MEDS: CLOTRIMAZOLE 1% 15 GM TUBE TP SCH ×2 (09:01→21:14)
[2020-06-26] MEDS: VITAMINS A AND D 56.7 GM TUBE TP SCH ×2 (09:01→21:14)
[2020-06-26] MEDS: Z GUARD REMEDY 4 OZ OINT TP SCH ×2 (09:01→21:14)
[2020-06-26] MEDS: THERAHONEY GEL 1.5 OZ TUBE TP SCH ×2 (09:01→21:14)
[2020-06-26] MEDS: GLUCERNA 1.2 1,000 ML BOTTLE NG PRN (11:00)
--- NOTE | 2020-06-26 12:05 | NUR ---
Resident is calm and comfortable in bed while watching tv. Refused to do any activities she just want to watch tv.
[2020-06-26] MEDS: BASAGLAR KWIKPEN SQ SCH (21:14)
[2020-06-26] MEDS: TEMAZEPAM 15 MG CAPSULE GT PRN (21:20)
[2020-06-27] VITALS (8 sets, daily range): BP systolic 99–116; BP diastolic 56–71
[2020-06-27] MEDS: IPRATROPIUM NEB FS 0.5 MG/2.5 ML AMPUL.NEB NEB SCH ×4 (01:34→20:41)
[2020-06-27] MEDS: ALBUTEROL FS 2.5 MG/0.5 ML VIAL.NEB NEB SCH ×4 (01:34→19:30)
[2020-06-27] MEDS: HYDROCODONE/APAP 5/325MG TABLET GT PRN (03:40)
[2020-06-27] MEDS: GLUCERNA 1.2 1,000 ML BOTTLE NG PRN ×2 (03:41→21:24)
[2020-06-27] MEDS: MORPHINE SULFATE IR 15 MG TABLET GT SCH ×4 (05:29→23:20)
[2020-06-27] MEDS: BLOOD SUGAR DIAGNOSTIC 1 EACH STRIP IN SCH ×4 (05:29→23:20)
[2020-06-27] MEDS: SUCRALFATE 1 G/10 ML UDC GT SCH ×4 (05:29→23:18)
[2020-06-27] MEDS: OMEPRAZOLE 20 MG CAPSULE.DR GT SCH (05:29)
[2020-06-27] MEDS: INSULIN REGULAR, HUMAN 100 UNIT/ML 3 ML VIAL SQ PRN ×4 (05:30→23:21)
[2020-06-27] MEDS: THERAHONEY GEL 1.5 OZ TUBE TP SCH ×2 (09:00→21:15)
[2020-06-27] MEDS: CLOTRIMAZOLE 1% 15 GM TUBE TP SCH ×2 (09:00→21:15)
[2020-06-27] MEDS: Z GUARD REMEDY 4 OZ OINT TP SCH ×2 (09:00→21:15)
[2020-06-27] MEDS: VITAMINS A AND D 56.7 GM TUBE TP SCH ×2 (09:00→21:15)
[2020-06-27] MEDS: HYDROGEN PEROXIDE 480 ML BOTTLE TP SCH ×2 (09:06→20:41)
[2020-06-27] MEDS: PROSOURCE / PROSTAT (PYXIS) 30 ML UDC GT SCH ×3 (09:56→17:46)
[2020-06-27] MEDS: PROPRANOLOL HCL 40 MG TABLET GT SCH (09:56)
[2020-06-27] MEDS: ASCORBIC ACID 500 MG TABLET GT SCH (09:56)
[2020-06-27] MEDS: LOSARTAN POTASSIUM 50 MG TABLET GT SCH (09:56)
[2020-06-27] MEDS: AMLODIPINE BESYLATE 5 MG TABLET GT SCH (09:56)
[2020-06-27] MEDS: POLYETHYLENE GLYCOL 3350 17 GM POWD.PACK GT SCH (09:56)
[2020-06-27] MEDS: ACIDOPHILUS/BULGARICUS 1 EACH TAB.CHEW GT SCH ×2 (09:56→21:15)
[2020-06-27] MEDS: CREON GT SCH ×3 (09:56→17:46)
[2020-06-27] MEDS: MULTIVIT W/MINERALS 1 TAB TABLET GT SCH (09:56)
[2020-06-27] MEDS: ZINC SULFATE 220 MG CAPSULE GT SCH (09:57)
[2020-06-27] MEDS: ENOXAPARIN SODIUM 40 MG/0.4 ML DISP.SYRIN SQ SCH (09:57)
[2020-06-27] MEDS: SERTRALINE HCL 50 MG TABLET GT SCH (09:57)
--- NOTE | 2020-06-27 12:13 | NUR ---
Resident is quiet, she doesn't want to be disturbed while watching tv. No complain so far.
[2020-06-27] MEDS: GABAPENTIN 300 MG CAPSULE GT PRN (15:45)
[2020-06-27] MEDS: LORAZEPAM 1 MG TABLET GT PRN (18:34)
[2020-06-27] MEDS: BASAGLAR KWIKPEN SQ SCH (21:15)
[2020-06-27] MEDS: TEMAZEPAM 15 MG CAPSULE GT PRN (21:16)
[2020-06-28] VITALS (7 sets, daily range): BP systolic 94–111; BP diastolic 55–66
[2020-06-28] MEDS: HYDROCODONE/APAP 5/325MG TABLET GT PRN ×2 (01:50→14:52)
[2020-06-28] MEDS: ALBUTEROL FS 2.5 MG/0.5 ML VIAL.NEB NEB SCH ×4 (01:52→19:29)
[2020-06-28] MEDS: IPRATROPIUM NEB FS 0.5 MG/2.5 ML AMPUL.NEB NEB SCH ×4 (01:52→19:29)
[2020-06-28] MEDS: LORAZEPAM 1 MG TABLET GT PRN ×2 (03:35→19:26)
[2020-06-28] MEDS: SUCRALFATE 1 G/10 ML UDC GT SCH ×3 (05:44→17:32)
[2020-06-28] MEDS: INSULIN REGULAR, HUMAN 100 UNIT/ML 3 ML VIAL SQ PRN ×3 (05:45→18:05)
[2020-06-28] MEDS: BLOOD SUGAR DIAGNOSTIC 1 EACH STRIP IN SCH ×3 (05:45→18:05)
[2020-06-28] MEDS: OMEPRAZOLE 20 MG CAPSULE.DR GT SCH (05:45)
[2020-06-28] MEDS: MORPHINE SULFATE IR 15 MG TABLET GT SCH ×3 (05:45→17:31)
[2020-06-28] MEDS: THERAHONEY GEL 1.5 OZ TUBE TP SCH ×2 (09:00→21:48)
[2020-06-28] MEDS: CLOTRIMAZOLE 1% 15 GM TUBE TP SCH ×2 (09:00→21:48)
[2020-06-28] MEDS: Z GUARD REMEDY 4 OZ OINT TP SCH ×2 (09:00→21:48)
[2020-06-28] MEDS: VITAMINS A AND D 56.7 GM TUBE TP SCH ×2 (09:00→21:48)
[2020-06-28] MEDS: HYDROGEN PEROXIDE 480 ML BOTTLE TP SCH ×2 (09:31→19:30)
[2020-06-28] MEDS: AMLODIPINE BESYLATE 5 MG TABLET GT SCH (09:47)
[2020-06-28] MEDS: MULTIVIT W/MINERALS 1 TAB TABLET GT SCH (09:47)
[2020-06-28] MEDS: CREON GT SCH ×3 (09:47→17:32)
[2020-06-28] MEDS: SERTRALINE HCL 50 MG TABLET GT SCH (09:47)
[2020-06-28] MEDS: ACIDOPHILUS/BULGARICUS 1 EACH TAB.CHEW GT SCH ×2 (09:47→21:48)
[2020-06-28] MEDS: LOSARTAN POTASSIUM 50 MG TABLET GT SCH (09:47)
[2020-06-28] MEDS: PROPRANOLOL HCL 40 MG TABLET GT SCH (09:47)
[2020-06-28] MEDS: ZINC SULFATE 220 MG CAPSULE GT SCH (09:47)
[2020-06-28] MEDS: PROSOURCE / PROSTAT (PYXIS) 30 ML UDC GT SCH ×3 (09:47→17:32)
[2020-06-28] MEDS: ASCORBIC ACID 500 MG TABLET GT SCH (09:47)
[2020-06-28] MEDS: POLYETHYLENE GLYCOL 3350 17 GM POWD.PACK GT SCH (09:47)
[2020-06-28] MEDS: ENOXAPARIN SODIUM 40 MG/0.4 ML DISP.SYRIN SQ SCH (09:48)
[2020-06-28] MEDS: GLUCERNA 1.2 1,000 ML BOTTLE NG PRN (12:57)
[2020-06-28 13:24] LABS: ABG BASE EXCESS 6.3 mmol/L; ABG PCO2 44.7 mmHg (35.0-45.0); ABG PO2 110.9 mmHg (75.0-100.0); AaDO2 50.5 mmHg; SITE, ABG Right Radial; VENT MODE, BG C/A 30%
--- NOTE | 2020-06-28 13:40 | NUR ---
Pt on cool aerosol with 30% FiO2. Relayed ABG result to Dr Gordon. No new order.
--- NOTE | 2020-06-28 16:18 | NUR ---
Called pt's daughter Adan, informed her that pt is now on cool aerosol and tolerating well. Adan very happy about it.
--- NOTE | 2020-06-28 18:47 | NUR ---
Seen by CHRISTINA Adams. Pt tolerating cool aerosol well. She ambulated with PT today. CHRISTINA Adams ordered ST to re-eval for PMV use.
--- NOTE | 2020-06-28 18:59 | NUR ---
Informed VP PRODUCT MARKETING Rebecca Adams that pt complained of left knee pain while ambulating with PT. Asked her if she wanted to order an x-ray, but she said no. She said to have PT evaluate, maybe pt needs a brace especially when ambulating.
[2020-06-28] MEDS: BASAGLAR KWIKPEN SQ SCH (21:49)
[2020-06-28] MEDS: TEMAZEPAM 15 MG CAPSULE GT PRN (21:50)
[2020-06-29] VITALS (7 sets, daily range): BP systolic 98–136; BP diastolic 60–71
[2020-06-29] MEDS: SUCRALFATE 1 G/10 ML UDC GT SCH ×5 (00:08→23:56)
[2020-06-29] MEDS: BLOOD SUGAR DIAGNOSTIC 1 EACH STRIP IN SCH ×5 (00:08→23:57)
[2020-06-29] MEDS: MORPHINE SULFATE IR 15 MG TABLET GT SCH ×5 (00:08→23:56)
[2020-06-29] MEDS: INSULIN REGULAR, HUMAN 100 UNIT/ML 3 ML VIAL SQ PRN ×5 (00:09→23:57)
[2020-06-29] MEDS: IPRATROPIUM NEB FS 0.5 MG/2.5 ML AMPUL.NEB NEB SCH ×4 (01:30→20:04)
[2020-06-29] MEDS: ALBUTEROL FS 2.5 MG/0.5 ML VIAL.NEB NEB SCH ×4 (01:30→20:04)
[2020-06-29] MEDS: HYDROCODONE/APAP 5/325MG TABLET GT PRN ×3 (02:01→16:58)
[2020-06-29] MEDS: LORAZEPAM 1 MG TABLET GT PRN ×2 (04:09→14:57)
[2020-06-29] MEDS: OMEPRAZOLE 20 MG CAPSULE.DR GT SCH (05:48)
[2020-06-29] MEDS: HYDROGEN PEROXIDE 480 ML BOTTLE TP SCH ×2 (08:43→21:24)
[2020-06-29] MEDS: CREON GT SCH ×3 (09:08→16:58)
[2020-06-29] MEDS: PROPRANOLOL HCL 40 MG TABLET GT SCH (09:08)
[2020-06-29] MEDS: LOSARTAN POTASSIUM 50 MG TABLET GT SCH (09:08)
[2020-06-29] MEDS: ACIDOPHILUS/BULGARICUS 1 EACH TAB.CHEW GT SCH ×2 (09:08→21:10)
[2020-06-29] MEDS: POLYETHYLENE GLYCOL 3350 17 GM POWD.PACK GT SCH (09:08)
[2020-06-29] MEDS: MULTIVIT W/MINERALS 1 TAB TABLET GT SCH (09:09)
[2020-06-29] MEDS: ENOXAPARIN SODIUM 40 MG/0.4 ML DISP.SYRIN SQ SCH (09:09)
[2020-06-29] MEDS: PROSOURCE / PROSTAT (PYXIS) 30 ML UDC GT SCH ×3 (09:09→16:58)
[2020-06-29] MEDS: VITAMINS A AND D 56.7 GM TUBE TP SCH ×2 (09:09→21:11)
[2020-06-29] MEDS: Z GUARD REMEDY 4 OZ OINT TP SCH ×2 (09:09→21:10)
[2020-06-29] MEDS: ASCORBIC ACID 500 MG TABLET GT SCH (09:09)
[2020-06-29] MEDS: SERTRALINE HCL 50 MG TABLET GT SCH (09:09)
[2020-06-29] MEDS: THERAHONEY GEL 1.5 OZ TUBE TP SCH ×2 (09:09→21:10)
[2020-06-29] MEDS: AMLODIPINE BESYLATE 5 MG TABLET GT SCH (09:09)
[2020-06-29] MEDS: CLOTRIMAZOLE 1% 15 GM TUBE TP SCH ×2 (09:09→21:10)
[2020-06-29] MEDS: ZINC SULFATE 220 MG CAPSULE GT SCH (09:09)
--- NOTE | 2020-06-29 14:15 | NUR ---
Received a new order per speech therapist, PMV as tolerated,order carried out and patient made aware.
--- NOTE | 2020-06-29 14:49 | NUR ---
Resident is awake, watching TV. She refused to do activities, Anything i offer in terms of activities she doesn't want to do it.
--- NOTE | 2020-06-29 16:53 | NUR ---
Seen and examined by Dr. Gordon, no new order given.
[2020-06-29] MEDS: BASAGLAR KWIKPEN SQ SCH (21:11)
[2020-06-29] MEDS: ACETAMINOPHEN 650 MG/20 ML UDC- SA PATIENTS-PAIN ONLY GT PRN (21:49)
[2020-06-29] MEDS: TEMAZEPAM 15 MG CAPSULE GT PRN (21:57)
[2020-06-29] MEDS: GLUCERNA 1.2 1,000 ML BOTTLE NG PRN ×2 (23:54→23:56)
[2020-06-30] VITALS (9 sets, daily range): BP systolic 100–116; BP diastolic 62–73
[2020-06-30] MEDS: ALBUTEROL FS 2.5 MG/0.5 ML VIAL.NEB NEB SCH ×4 (01:57→20:20)
[2020-06-30] MEDS: IPRATROPIUM NEB FS 0.5 MG/2.5 ML AMPUL.NEB NEB SCH ×4 (01:57→20:20)
[2020-06-30] MEDS: HYDROCODONE/APAP 5/325MG TABLET GT PRN ×3 (02:38→17:14)
[2020-06-30] MEDS: SUCRALFATE 1 G/10 ML UDC GT SCH ×3 (05:30→17:06)
[2020-06-30] MEDS: OMEPRAZOLE 20 MG CAPSULE.DR GT SCH (05:31)
[2020-06-30] MEDS: BLOOD SUGAR DIAGNOSTIC 1 EACH STRIP IN SCH ×3 (05:31→17:06)
[2020-06-30] MEDS: INSULIN REGULAR, HUMAN 100 UNIT/ML 3 ML VIAL SQ PRN ×3 (05:31→18:01)
[2020-06-30] MEDS: MORPHINE SULFATE IR 15 MG TABLET GT SCH ×3 (05:31→17:07)
[2020-06-30] MEDS: MULTIVIT W/MINERALS 1 TAB TABLET GT SCH (08:34)
[2020-06-30] MEDS: LOSARTAN POTASSIUM 50 MG TABLET GT SCH (08:34)
[2020-06-30] MEDS: ASCORBIC ACID 500 MG TABLET GT SCH (08:34)
[2020-06-30] MEDS: PROPRANOLOL HCL 40 MG TABLET GT SCH (08:34)
[2020-06-30] MEDS: PROSOURCE / PROSTAT (PYXIS) 30 ML UDC GT SCH ×3 (08:34→17:06)
[2020-06-30] MEDS: CREON GT SCH ×3 (08:34→17:06)
[2020-06-30] MEDS: POLYETHYLENE GLYCOL 3350 17 GM POWD.PACK GT SCH (08:34)
[2020-06-30] MEDS: ACIDOPHILUS/BULGARICUS 1 EACH TAB.CHEW GT SCH ×2 (08:34→21:39)
[2020-06-30] MEDS: SERTRALINE HCL 50 MG TABLET GT SCH (08:34)
[2020-06-30] MEDS: AMLODIPINE BESYLATE 5 MG TABLET GT SCH (08:34)
[2020-06-30] MEDS: Z GUARD REMEDY 4 OZ OINT TP SCH ×2 (08:35→21:40)
[2020-06-30] MEDS: THERAHONEY GEL 1.5 OZ TUBE TP SCH ×2 (08:35→21:40)
[2020-06-30] MEDS: CLOTRIMAZOLE 1% 15 GM TUBE TP SCH ×2 (08:35→21:39)
[2020-06-30] MEDS: ENOXAPARIN SODIUM 40 MG/0.4 ML DISP.SYRIN SQ SCH (08:35)
[2020-06-30] MEDS: VITAMINS A AND D 56.7 GM TUBE TP SCH ×2 (08:35→21:40)
[2020-06-30] MEDS: HYDROGEN PEROXIDE 480 ML BOTTLE TP SCH ×2 (09:20→21:00)
--- NOTE | 2020-06-30 13:18 | NUR ---
Resident is asleep in the morning.She was awake when i visited her in the afternoon.She was quiet and doesn't need anything from activities. a
--- NOTE | 2020-06-30 16:30 | NUR ---
Seen and examined by Dr. Qureshi, patient reported the red lesion in the L side of her nose. According to Dr. Qureshi to monitor for now and may need to be biopsied if increases in size. Endorsed.
[2020-06-30] MEDS: LORAZEPAM 1 MG TABLET GT PRN (19:01)
[2020-06-30] MEDS: TEMAZEPAM 15 MG CAPSULE GT PRN (21:40)
[2020-06-30] MEDS: BASAGLAR KWIKPEN SQ SCH (21:40)
[2020-06-30] MEDS: GLUCERNA 1.2 1,000 ML BOTTLE NG PRN (22:47)
[2020-07-01] VITALS (7 sets, daily range): BP systolic 102–111; BP diastolic 56–73
[2020-07-01] MEDS: MORPHINE SULFATE IR 15 MG TABLET GT SCH ×5 (00:15→23:40)
[2020-07-01] MEDS: SUCRALFATE 1 G/10 ML UDC GT SCH ×5 (00:15→23:40)
[2020-07-01] MEDS: BLOOD SUGAR DIAGNOSTIC 1 EACH STRIP IN SCH ×5 (00:15→23:40)
[2020-07-01] MEDS: INSULIN REGULAR, HUMAN 100 UNIT/ML 3 ML VIAL SQ PRN ×5 (00:17→23:41)
[2020-07-01] MEDS: ALBUTEROL FS 2.5 MG/0.5 ML VIAL.NEB NEB SCH ×4 (01:38→19:59)
[2020-07-01] MEDS: IPRATROPIUM NEB FS 0.5 MG/2.5 ML AMPUL.NEB NEB SCH ×4 (01:38→19:59)
[2020-07-01] MEDS: HYDROCODONE/APAP 5/325MG TABLET GT PRN ×3 (04:10→22:07)
[2020-07-01] MEDS: OMEPRAZOLE 20 MG CAPSULE.DR GT SCH (06:37)
[2020-07-01] MEDS: HYDROGEN PEROXIDE 480 ML BOTTLE TP SCH ×2 (09:10→21:00)
[2020-07-01] MEDS: AMLODIPINE BESYLATE 5 MG TABLET GT SCH (09:17)
[2020-07-01] MEDS: ACIDOPHILUS/BULGARICUS 1 EACH TAB.CHEW GT SCH ×2 (09:17→20:11)
[2020-07-01] MEDS: MULTIVIT W/MINERALS 1 TAB TABLET GT SCH (09:17)
[2020-07-01] MEDS: ASCORBIC ACID 500 MG TABLET GT SCH (09:17)
[2020-07-01] MEDS: SERTRALINE HCL 50 MG TABLET GT SCH (09:17)
[2020-07-01] MEDS: POLYETHYLENE GLYCOL 3350 17 GM POWD.PACK GT SCH (09:17)
[2020-07-01] MEDS: LOSARTAN POTASSIUM 50 MG TABLET GT SCH (09:17)
[2020-07-01] MEDS: PROSOURCE / PROSTAT (PYXIS) 30 ML UDC GT SCH ×3 (09:17→17:50)
[2020-07-01] MEDS: PROPRANOLOL HCL 40 MG TABLET GT SCH (09:17)
[2020-07-01] MEDS: CREON GT SCH ×3 (09:17→17:50)
[2020-07-01] MEDS: THERAHONEY GEL 1.5 OZ TUBE TP SCH ×2 (09:19→20:12)
[2020-07-01] MEDS: ENOXAPARIN SODIUM 40 MG/0.4 ML DISP.SYRIN SQ SCH (09:19)
[2020-07-01] MEDS: CLOTRIMAZOLE 1% 15 GM TUBE TP SCH ×2 (09:19→20:11)
[2020-07-01] MEDS: VITAMINS A AND D 56.7 GM TUBE TP SCH ×2 (09:19→20:12)
[2020-07-01] MEDS: Z GUARD REMEDY 4 OZ OINT TP SCH ×2 (09:19→20:12)
[2020-07-01] MEDS: METOCLOPRAMIDE HCL 10 MG TABLET GT PRN (09:21)
--- NOTE | 2020-07-01 13:25 | NUR ---
Resident is comfortably lying in bed watching tv . Doesn't need anything at the moment.
--- NOTE | 2020-07-01 13:42 | NUR ---
Seen by CHRISTINA Adams. She ordered to have ST see pt if she can take food orally.
--- NOTE | 2020-07-01 16:31 | NUR ---
Patient check in: SW met with pt. at bedside. Pt. smiled today, appears well-groomed and stated she showered. Pt. used voice valve to speak with SW. Pt. vented to SW. Pt. discussed her familial relationships, discharge planning & current situation. SW used active listening & validation. Pt. stated she does not receive as much Ativan as she would like. Pt. may be med seeking. SW will discuss positive coping mechanisms to deal with anxiety on next visit. Pt. stated without SW asking, that if her discharge plan does not go as she hopes (having her own apartment, with caregivers & medication management), I dont think I can be on this earth for a long. SW asked pt. if she would like to have a video call with her family. Pt. stated no. Plan: SW will continue to provide clinical intervention through individual therapy as needed and promote interaction with support system. SW will continue to encourage pt. to participate in her rehab plan and SW will continue to assess for level of SI.
[2020-07-01] MEDS: GLUCERNA 1.2 1,000 ML BOTTLE NG PRN (18:05)
[2020-07-01] MEDS: LORAZEPAM 1 MG TABLET GT PRN (19:37)
[2020-07-01] MEDS: BASAGLAR KWIKPEN SQ SCH (21:04)
[2020-07-01] MEDS: TEMAZEPAM 15 MG CAPSULE GT PRN (21:05)
[2020-07-02] VITALS (8 sets, daily range): BP systolic 99–120; BP diastolic 55–76
[2020-07-02] MEDS: ALBUTEROL FS 2.5 MG/0.5 ML VIAL.NEB NEB SCH ×4 (01:55→20:20)
[2020-07-02] MEDS: IPRATROPIUM NEB FS 0.5 MG/2.5 ML AMPUL.NEB NEB SCH ×4 (01:55→20:20)
[2020-07-02] MEDS: SUCRALFATE 1 G/10 ML UDC GT SCH ×4 (05:38→23:29)
[2020-07-02] MEDS: MORPHINE SULFATE IR 15 MG TABLET GT SCH ×4 (05:38→23:30)
[2020-07-02] MEDS: OMEPRAZOLE 20 MG CAPSULE.DR GT SCH (05:39)
[2020-07-02] MEDS: BLOOD SUGAR DIAGNOSTIC 1 EACH STRIP IN SCH ×4 (05:50→23:30)
[2020-07-02] MEDS: INSULIN REGULAR, HUMAN 100 UNIT/ML 3 ML VIAL SQ PRN ×4 (05:51→23:31)
[2020-07-02] MEDS: HYDROGEN PEROXIDE 480 ML BOTTLE TP SCH ×2 (08:57→21:06)
[2020-07-02] MEDS: THERAHONEY GEL 1.5 OZ TUBE TP SCH ×2 (09:00→21:18)
[2020-07-02] MEDS: VITAMINS A AND D 56.7 GM TUBE TP SCH ×2 (09:00→21:18)
[2020-07-02] MEDS: CLOTRIMAZOLE 1% 15 GM TUBE TP SCH ×2 (09:00→21:18)
[2020-07-02] MEDS: Z GUARD REMEDY 4 OZ OINT TP SCH ×2 (09:00→21:18)
[2020-07-02] MEDS: LOSARTAN POTASSIUM 50 MG TABLET GT SCH (09:29)
[2020-07-02] MEDS: MULTIVIT W/MINERALS 1 TAB TABLET GT SCH (09:30)
[2020-07-02] MEDS: AMLODIPINE BESYLATE 5 MG TABLET GT SCH (09:30)
[2020-07-02] MEDS: POLYETHYLENE GLYCOL 3350 17 GM POWD.PACK GT SCH (09:30)
[2020-07-02] MEDS: ENOXAPARIN SODIUM 40 MG/0.4 ML DISP.SYRIN SQ SCH (09:30)
[2020-07-02] MEDS: SERTRALINE HCL 50 MG TABLET GT SCH (09:30)
[2020-07-02] MEDS: PROPRANOLOL HCL 40 MG TABLET GT SCH (09:30)
[2020-07-02] MEDS: CREON GT SCH ×3 (09:30→17:27)
[2020-07-02] MEDS: ACIDOPHILUS/BULGARICUS 1 EACH TAB.CHEW GT SCH ×2 (09:30→21:18)
[2020-07-02] MEDS: PROSOURCE / PROSTAT (PYXIS) 30 ML UDC GT SCH ×3 (09:30→17:27)
[2020-07-02] MEDS: ASCORBIC ACID 500 MG TABLET GT SCH (09:30)
[2020-07-02] MEDS: HYDROCODONE/APAP 5/325MG TABLET GT PRN ×3 (09:46→22:02)
--- NOTE | 2020-07-02 11:15 | NUR ---
Seen and evaluated by ST for swallowing. Patient no signs of aspiration, with order for oral gratification per patient's request.
--- NOTE | 2020-07-02 13:27 | NUR ---
Resident is awake, watching TV. She is quiet and looks contented in her sitting position.No request as of this moment.
[2020-07-02] MEDS: GLUCERNA 1.2 1,000 ML BOTTLE NG PRN (15:48)
--- NOTE | 2020-07-02 18:44 | NUR ---
Ate puree at dinner time for oral gratification, tolerated well, aspiration precaution observed. Suctioned patient before and after feeding, PMV used, positioned on high back rest, no coughing noted while eating.
[2020-07-02] MEDS: INSULIN GLARGINE, 100 UNIT/ML CARTRIDGE SQ SCH (21:18)
[2020-07-02] MEDS: TEMAZEPAM 15 MG CAPSULE GT PRN (21:19)
[2020-07-03] VITALS (8 sets, daily range): BP systolic 98–120; BP diastolic 55–72
[2020-07-03] MEDS: IPRATROPIUM NEB FS 0.5 MG/2.5 ML AMPUL.NEB NEB SCH ×4 (01:40→20:09)
[2020-07-03] MEDS: ALBUTEROL FS 2.5 MG/0.5 ML VIAL.NEB NEB SCH ×4 (01:45→20:09)
[2020-07-03] MEDS: LORAZEPAM 1 MG TABLET GT PRN ×2 (03:12→15:20)
--- NOTE | 2020-07-03 05:08 | NUR ---
PATIENT RECEIVED ON CONTINUOUS 28% AEROSOL T-TUBE, TOLERATING WITH NO DISTRESS/SOB NOTED. SUCTIONED FOR MINIMAL, THIN, YELLOW SECRETIONS. GIVEN IN-LINE TREATMENT WITH NO ADVERSE REACTIONS. AMBU BAG AT BEDSIDE. VENT ON STANDBY IF NEEDED. Addendum: 07/03/20 at 0511 by ABIGAIL DAMON RT Amended: Links added.
[2020-07-03] MEDS: SUCRALFATE 1 G/10 ML UDC GT SCH ×3 (05:22→17:21)
[2020-07-03] MEDS: OMEPRAZOLE 20 MG CAPSULE.DR GT SCH (05:22)
[2020-07-03] MEDS: MORPHINE SULFATE IR 15 MG TABLET GT SCH ×3 (05:22→17:22)
[2020-07-03] MEDS: BLOOD SUGAR DIAGNOSTIC 1 EACH STRIP IN SCH ×3 (05:22→18:11)
[2020-07-03] MEDS: INSULIN REGULAR, HUMAN 100 UNIT/ML 3 ML VIAL SQ PRN ×3 (05:23→18:14)
[2020-07-03] MEDS: HYDROGEN PEROXIDE 480 ML BOTTLE TP SCH ×2 (08:24→21:18)
[2020-07-03] MEDS: PROPRANOLOL HCL 40 MG TABLET GT SCH (08:58)
[2020-07-03] MEDS: LOSARTAN POTASSIUM 50 MG TABLET GT SCH (09:00)
[2020-07-03] MEDS: CLOTRIMAZOLE 1% 15 GM TUBE TP SCH ×2 (09:00→21:25)
[2020-07-03] MEDS: THERAHONEY GEL 1.5 OZ TUBE TP SCH ×2 (09:00→21:25)
[2020-07-03] MEDS: ACIDOPHILUS/BULGARICUS 1 EACH TAB.CHEW GT SCH ×2 (09:01→21:25)
[2020-07-03] MEDS: CREON GT SCH ×3 (09:01→17:21)
[2020-07-03] MEDS: POLYETHYLENE GLYCOL 3350 17 GM POWD.PACK GT SCH (09:01)
[2020-07-03] MEDS: PROSOURCE / PROSTAT (PYXIS) 30 ML UDC GT SCH ×3 (09:02→17:21)
[2020-07-03] MEDS: ASCORBIC ACID 500 MG TABLET GT SCH (09:02)
[2020-07-03] MEDS: AMLODIPINE BESYLATE 5 MG TABLET GT SCH (09:02)
[2020-07-03] MEDS: MULTIVIT W/MINERALS 1 TAB TABLET GT SCH (09:02)
[2020-07-03] MEDS: SERTRALINE HCL 50 MG TABLET GT SCH (09:03)
[2020-07-03] MEDS: ENOXAPARIN SODIUM 40 MG/0.4 ML DISP.SYRIN SQ SCH (09:04)
[2020-07-03] MEDS: VITAMINS A AND D 56.7 GM TUBE TP SCH ×2 (09:04→21:25)
[2020-07-03] MEDS: Z GUARD REMEDY 4 OZ OINT TP SCH ×2 (09:04→21:25)
[2020-07-03] MEDS: HYDROCODONE/APAP 5/325MG TABLET GT PRN ×2 (10:14→22:50)
--- NOTE | 2020-07-03 14:45 | NUR ---
Resident is nice and charming today . She watched tv quietly. No complain at all.
[2020-07-03] MEDS: GLUCERNA 1.2 1,000 ML BOTTLE NG PRN (15:35)
--- NOTE | 2020-07-03 15:53 | NUR ---
Resident is in bed watching a movie.She's quiet and doesn't need anything. Refused to do activities.
[2020-07-03] MEDS: INSULIN GLARGINE, 100 UNIT/ML CARTRIDGE SQ SCH (21:26)
[2020-07-04] VITALS (8 sets, daily range): BP systolic 98–122; BP diastolic 54–73
[2020-07-04] MEDS: SUCRALFATE 1 G/10 ML UDC GT SCH ×4 (00:07→18:57)
[2020-07-04] MEDS: MORPHINE SULFATE IR 15 MG TABLET GT SCH ×4 (00:08→18:57)
[2020-07-04] MEDS: BLOOD SUGAR DIAGNOSTIC 1 EACH STRIP IN SCH ×4 (00:08→17:35)
[2020-07-04] MEDS: INSULIN REGULAR, HUMAN 100 UNIT/ML 3 ML VIAL SQ PRN ×4 (00:08→17:36)
[2020-07-04] MEDS: ALBUTEROL FS 2.5 MG/0.5 ML VIAL.NEB NEB SCH ×4 (01:44→20:11)
[2020-07-04] MEDS: IPRATROPIUM NEB FS 0.5 MG/2.5 ML AMPUL.NEB NEB SCH ×4 (01:44→20:11)
[2020-07-04] MEDS: LORAZEPAM 1 MG TABLET GT PRN ×2 (01:58→21:38)
[2020-07-04] MEDS: OMEPRAZOLE 20 MG CAPSULE.DR GT SCH (06:14)
[2020-07-04] MEDS: HYDROGEN PEROXIDE 480 ML BOTTLE TP SCH ×2 (08:15→21:00)
[2020-07-04] MEDS: GLUCERNA 1.2 1,000 ML BOTTLE NG PRN (09:42)
[2020-07-04] MEDS: ACIDOPHILUS/BULGARICUS 1 EACH TAB.CHEW GT SCH ×2 (09:45→21:30)
[2020-07-04] MEDS: POLYETHYLENE GLYCOL 3350 17 GM POWD.PACK GT SCH (09:45)
[2020-07-04] MEDS: CREON GT SCH ×3 (09:45→16:35)
[2020-07-04] MEDS: LOSARTAN POTASSIUM 50 MG TABLET GT SCH (09:45)
[2020-07-04] MEDS: PROPRANOLOL HCL 40 MG TABLET GT SCH (09:45)
[2020-07-04] MEDS: SERTRALINE HCL 50 MG TABLET GT SCH (09:46)
[2020-07-04] MEDS: AMLODIPINE BESYLATE 5 MG TABLET GT SCH (09:46)
[2020-07-04] MEDS: MULTIVIT W/MINERALS 1 TAB TABLET GT SCH (09:46)
[2020-07-04] MEDS: ASCORBIC ACID 500 MG TABLET GT SCH (09:46)
[2020-07-04] MEDS: PROSOURCE / PROSTAT (PYXIS) 30 ML UDC GT SCH ×3 (09:46→16:35)
[2020-07-04] MEDS: ENOXAPARIN SODIUM 40 MG/0.4 ML DISP.SYRIN SQ SCH (09:48)
[2020-07-04] MEDS: VITAMINS A AND D 56.7 GM TUBE TP SCH ×2 (09:49→21:30)
[2020-07-04] MEDS: THERAHONEY GEL 1.5 OZ TUBE TP SCH ×2 (09:49→21:30)
[2020-07-04] MEDS: CLOTRIMAZOLE 1% 15 GM TUBE TP SCH ×2 (09:49→21:30)
[2020-07-04] MEDS: Z GUARD REMEDY 4 OZ OINT TP SCH ×2 (09:49→21:30)
[2020-07-04] MEDS: HYDROCODONE/APAP 5/325MG TABLET GT PRN ×2 (09:56→16:37)
--- NOTE | 2020-07-04 15:56 | NUR ---
Resident is awake watching tv. no complain or any request needed.Quietly resting in bed
[2020-07-04] MEDS: INSULIN GLARGINE, 100 UNIT/ML CARTRIDGE SQ SCH (21:37)
[2020-07-04] MEDS: TEMAZEPAM 15 MG CAPSULE GT PRN (22:55)
[2020-07-05] VITALS (9 sets, daily range): BP systolic 93–119; BP diastolic 55–63
[2020-07-05] MEDS: SUCRALFATE 1 G/10 ML UDC GT SCH ×4 (00:31→17:51)
[2020-07-05] MEDS: MORPHINE SULFATE IR 15 MG TABLET GT SCH ×4 (00:31→17:11)
[2020-07-05] MEDS: BLOOD SUGAR DIAGNOSTIC 1 EACH STRIP IN SCH ×4 (00:31→17:51)
[2020-07-05] MEDS: INSULIN REGULAR, HUMAN 100 UNIT/ML 3 ML VIAL SQ PRN ×3 (00:32→17:52)
[2020-07-05] MEDS: ALBUTEROL FS 2.5 MG/0.5 ML VIAL.NEB NEB SCH ×4 (00:36→19:37)
[2020-07-05] MEDS: IPRATROPIUM NEB FS 0.5 MG/2.5 ML AMPUL.NEB NEB SCH ×4 (00:36→19:37)
[2020-07-05] MEDS: HYDROCODONE/APAP 5/325MG TABLET GT PRN ×3 (02:40→21:30)
[2020-07-05] MEDS: OMEPRAZOLE 20 MG CAPSULE.DR GT SCH (06:16)
[2020-07-05] MEDS: HYDROGEN PEROXIDE 480 ML BOTTLE TP SCH ×2 (08:51→19:37)
[2020-07-05] MEDS: CLOTRIMAZOLE 1% 15 GM TUBE TP SCH ×2 (09:00→21:29)
[2020-07-05] MEDS: VITAMINS A AND D 56.7 GM TUBE TP SCH ×2 (09:00→21:29)
[2020-07-05] MEDS: Z GUARD REMEDY 4 OZ OINT TP SCH ×2 (09:00→21:29)
[2020-07-05] MEDS: THERAHONEY GEL 1.5 OZ TUBE TP SCH ×2 (09:00→21:29)
[2020-07-05] MEDS: LOSARTAN POTASSIUM 50 MG TABLET GT SCH (09:22)
[2020-07-05] MEDS: PROPRANOLOL HCL 40 MG TABLET GT SCH (09:22)
[2020-07-05] MEDS: ACIDOPHILUS/BULGARICUS 1 EACH TAB.CHEW GT SCH ×2 (09:26→21:29)
[2020-07-05] MEDS: POLYETHYLENE GLYCOL 3350 17 GM POWD.PACK GT SCH (09:26)
[2020-07-05] MEDS: CREON GT SCH ×3 (09:28→17:11)
[2020-07-05] MEDS: MULTIVIT W/MINERALS 1 TAB TABLET GT SCH (09:28)
[2020-07-05] MEDS: AMLODIPINE BESYLATE 5 MG TABLET GT SCH (09:28)
[2020-07-05] MEDS: SERTRALINE HCL 50 MG TABLET GT SCH (09:28)
[2020-07-05] MEDS: ASCORBIC ACID 500 MG TABLET GT SCH (09:28)
[2020-07-05] MEDS: PROSOURCE / PROSTAT (PYXIS) 30 ML UDC GT SCH ×3 (09:28→17:11)
[2020-07-05] MEDS: ENOXAPARIN SODIUM 40 MG/0.4 ML DISP.SYRIN SQ SCH (09:29)
--- NOTE | 2020-07-05 15:30 | NUR ---
Resident said she's feeling stressed and anxious, she asked to have her Ativan. She also mentioned that she want to speak with the manager social. She feels like her anti depressant dose needs to be increased because she feels sad, helpless and easily gets angry. I asked her if she's angry with the staff she replied no, she's angry with the situation. I tried to divert her attention, i talked about her progress from being on a ventilator to a cool aerosol, from NPO to eating by mouth and her progress with PT. She gave me a sweet smile after and she said that she's looking forward for her GT to be removed. SW informed of pts request, she will see pt in AM. Will continue to monitor.
[2020-07-05] MEDS: LORAZEPAM 1 MG TABLET GT PRN (15:39)
--- NOTE | 2020-07-05 15:58 | NUR ---
Resident is asleep at this time .After lunch she was awake watching tv doesnt need anything.
[2020-07-05] MEDS: INSULIN GLARGINE, 100 UNIT/ML CARTRIDGE SQ SCH (21:30)
[2020-07-05] MEDS: TEMAZEPAM 15 MG CAPSULE GT PRN (22:54)
[2020-07-06] VITALS (8 sets, daily range): BP systolic 93–116; BP diastolic 56–73
[2020-07-06] MEDS: MORPHINE SULFATE IR 15 MG TABLET GT SCH ×4 (00:10→17:27)
[2020-07-06] MEDS: BLOOD SUGAR DIAGNOSTIC 1 EACH STRIP IN SCH ×4 (00:10→17:27)
[2020-07-06] MEDS: SUCRALFATE 1 G/10 ML UDC GT SCH ×4 (00:10→17:27)
[2020-07-06] MEDS: INSULIN REGULAR, HUMAN 100 UNIT/ML 3 ML VIAL SQ PRN ×3 (00:11→17:28)
[2020-07-06] MEDS: ALBUTEROL FS 2.5 MG/0.5 ML VIAL.NEB NEB SCH ×4 (01:37→19:42)
[2020-07-06] MEDS: IPRATROPIUM NEB FS 0.5 MG/2.5 ML AMPUL.NEB NEB SCH ×4 (01:37→19:42)
[2020-07-06] MEDS: HYDROCODONE/APAP 5/325MG TABLET GT PRN ×3 (04:35→15:52)
[2020-07-06] MEDS: OMEPRAZOLE 20 MG CAPSULE.DR GT SCH (05:58)
[2020-07-06] MEDS: HYDROGEN PEROXIDE 480 ML BOTTLE TP SCH ×2 (08:36→19:43)
[2020-07-06] MEDS: POLYETHYLENE GLYCOL 3350 17 GM POWD.PACK GT SCH (09:11)
[2020-07-06] MEDS: PROPRANOLOL HCL 40 MG TABLET GT SCH (09:11)
[2020-07-06] MEDS: ACIDOPHILUS/BULGARICUS 1 EACH TAB.CHEW GT SCH ×2 (09:11→20:10)
[2020-07-06] MEDS: AMLODIPINE BESYLATE 5 MG TABLET GT SCH (09:11)
[2020-07-06] MEDS: LOSARTAN POTASSIUM 50 MG TABLET GT SCH (09:11)
[2020-07-06] MEDS: CREON GT SCH ×3 (09:11→17:27)
[2020-07-06] MEDS: PROSOURCE / PROSTAT (PYXIS) 30 ML UDC GT SCH ×3 (09:11→17:27)
[2020-07-06] MEDS: ASCORBIC ACID 500 MG TABLET GT SCH (09:12)
[2020-07-06] MEDS: MULTIVIT W/MINERALS 1 TAB TABLET GT SCH (09:12)
[2020-07-06] MEDS: SERTRALINE HCL 50 MG TABLET GT SCH (09:12)
[2020-07-06] MEDS: ENOXAPARIN SODIUM 40 MG/0.4 ML DISP.SYRIN SQ SCH (09:13)
[2020-07-06] MEDS: THERAHONEY GEL 1.5 OZ TUBE TP SCH ×2 (09:13→20:11)
[2020-07-06] MEDS: CLOTRIMAZOLE 1% 15 GM TUBE TP SCH ×2 (09:13→20:10)
[2020-07-06] MEDS: Z GUARD REMEDY 4 OZ OINT TP SCH ×2 (09:13→20:11)
[2020-07-06] MEDS: VITAMINS A AND D 56.7 GM TUBE TP SCH ×2 (09:14→20:11)
--- NOTE | 2020-07-06 13:09 | NUR ---
Seen by ST Persaud. Received order for pt to have finely chopped diet at breakfast and lunch. Notified SAEID Arrieta. She said she will evaluate pt tomorrow. Notified pt's daughter.
[2020-07-06] MEDS: GLUCERNA 1.2 1,000 ML BOTTLE NG PRN (15:52)
--- NOTE | 2020-07-06 18:02 | NUR ---
Notified Dr Milo Hein that pt has granulation around the GT site. He said he will see pt on . Informed pt.
[2020-07-06] MEDS: LORAZEPAM 1 MG TABLET GT PRN (20:13)
[2020-07-06] MEDS: TEMAZEPAM 15 MG CAPSULE GT PRN (21:35)
[2020-07-06] MEDS: INSULIN GLARGINE, 100 UNIT/ML CARTRIDGE SQ SCH (21:38)
[2020-07-07] VITALS (8 sets, daily range): BP systolic 98–113; BP diastolic 59–72
[2020-07-07] MEDS: SUCRALFATE 1 G/10 ML UDC GT SCH ×4 (00:06→18:01)
[2020-07-07] MEDS: BLOOD SUGAR DIAGNOSTIC 1 EACH STRIP IN SCH ×4 (00:06→18:02)
[2020-07-07] MEDS: MORPHINE SULFATE IR 15 MG TABLET GT SCH ×4 (00:06→18:01)
[2020-07-07] MEDS: INSULIN REGULAR, HUMAN 100 UNIT/ML 3 ML VIAL SQ PRN ×4 (00:08→18:02)
[2020-07-07] MEDS: IPRATROPIUM NEB FS 0.5 MG/2.5 ML AMPUL.NEB NEB SCH ×5 (01:57→20:28)
[2020-07-07] MEDS: ALBUTEROL FS 2.5 MG/0.5 ML VIAL.NEB NEB SCH ×5 (01:57→20:28)
[2020-07-07] MEDS: HYDROCODONE/APAP 5/325MG TABLET GT PRN ×2 (03:25→16:04)
[2020-07-07] MEDS: OMEPRAZOLE 20 MG CAPSULE.DR GT SCH (05:47)
[2020-07-07] MEDS: CREON GT SCH ×3 (08:37→17:00)
[2020-07-07] MEDS: LOSARTAN POTASSIUM 50 MG TABLET GT SCH (08:37)
[2020-07-07] MEDS: ACIDOPHILUS/BULGARICUS 1 EACH TAB.CHEW GT SCH ×2 (08:37→21:45)
[2020-07-07] MEDS: POLYETHYLENE GLYCOL 3350 17 GM POWD.PACK GT SCH (08:37)
[2020-07-07] MEDS: PROPRANOLOL HCL 40 MG TABLET GT SCH (08:37)
[2020-07-07] MEDS: AMLODIPINE BESYLATE 5 MG TABLET GT SCH (08:37)
[2020-07-07] MEDS: ENOXAPARIN SODIUM 40 MG/0.4 ML DISP.SYRIN SQ SCH (08:38)
[2020-07-07] MEDS: SERTRALINE HCL 50 MG TABLET GT SCH (08:38)
[2020-07-07] MEDS: PROSOURCE / PROSTAT (PYXIS) 30 ML UDC GT SCH ×3 (08:38→17:00)
[2020-07-07] MEDS: MULTIVIT W/MINERALS 1 TAB TABLET GT SCH (08:38)
[2020-07-07] MEDS: ASCORBIC ACID 500 MG TABLET GT SCH (08:38)
[2020-07-07] MEDS: CLOTRIMAZOLE 1% 15 GM TUBE TP SCH ×2 (08:39→21:45)
[2020-07-07] MEDS: VITAMINS A AND D 56.7 GM TUBE TP SCH ×2 (08:39→21:46)
[2020-07-07] MEDS: Z GUARD REMEDY 4 OZ OINT TP SCH ×2 (08:39→21:45)
[2020-07-07] MEDS: THERAHONEY GEL 1.5 OZ TUBE TP SCH ×2 (08:39→21:45)
[2020-07-07] MEDS: HYDROGEN PEROXIDE 480 ML BOTTLE TP SCH ×2 (08:51→21:45)
--- NOTE | 2020-07-07 10:58 | NUR ---
Resident in a happy mood today. Had a shower in the shower room afterwards she ambulated 3x around the nursing station using FWW with hand held assist from physical therapist. Resident tolerated ambulation, no SOB patient on O2 via trach mask. Expressed satisfaction with her accomplishments today.
[2020-07-07] MEDS: GLUCERNA 1.2 1,000 ML BOTTLE NG PRN (12:12)
[2020-07-07] MEDS: LORAZEPAM 1 MG TABLET GT PRN ×2 (13:13→21:27)
--- NOTE | 2020-07-07 15:30 | NUR ---
SW attempted to meet with pt. However, pt. is asleep. SW will meet with patient at a later time.
--- NOTE | 2020-07-07 16:00 | NUR ---
Resident is in a good mood today , she wants to be cleaned and showed excitement in walking. She has a speaking valve and was able to express her happiness and excitement.She was walked by the physical therapist and it looks like she walk pretty good.
--- NOTE | 2020-07-07 17:00 | NUR ---
Resident's daughter Adan updated of patient's progress and participation with therapist. Patient also had shower this morning. Daughter very pleased with patient's progress.
--- NOTE | 2020-07-07 18:30 | NUR ---
Notified Dr. Qureshi of dietary recommendation to decrease GT feeding rate of Glucerna to 50cc/hr x 16 hours as patient is receiving PO diet 2x/day.
[2020-07-07] MEDS: INSULIN GLARGINE, 100 UNIT/ML CARTRIDGE SQ SCH (22:08)
[2020-07-07] MEDS: TEMAZEPAM 15 MG CAPSULE GT PRN (23:11)
[2020-07-08] VITALS (9 sets, daily range): BP systolic 101–137; BP diastolic 52–71
[2020-07-08] MEDS: SUCRALFATE 1 G/10 ML UDC GT SCH ×5 (00:19→23:42)
[2020-07-08] MEDS: BLOOD SUGAR DIAGNOSTIC 1 EACH STRIP IN SCH ×5 (00:20→23:43)
[2020-07-08] MEDS: MORPHINE SULFATE IR 15 MG TABLET GT SCH ×5 (00:20→23:43)
[2020-07-08] MEDS: INSULIN REGULAR, HUMAN 100 UNIT/ML 3 ML VIAL SQ PRN ×5 (00:22→23:43)
[2020-07-08] MEDS: ALBUTEROL FS 2.5 MG/0.5 ML VIAL.NEB NEB SCH ×4 (01:30→19:30)
[2020-07-08] MEDS: IPRATROPIUM NEB FS 0.5 MG/2.5 ML AMPUL.NEB NEB SCH ×4 (01:30→19:30)
[2020-07-08] MEDS: HYDROCODONE/APAP 5/325MG TABLET GT PRN ×3 (03:23→16:15)
[2020-07-08] MEDS: OMEPRAZOLE 20 MG CAPSULE.DR GT SCH (06:08)
[2020-07-08] MEDS: HYDROGEN PEROXIDE 480 ML BOTTLE TP SCH ×2 (08:38→21:56)
[2020-07-08] MEDS: VITAMINS A AND D 56.7 GM TUBE TP SCH ×2 (09:00→20:09)
[2020-07-08] MEDS: METOCLOPRAMIDE HCL 10 MG TABLET GT PRN (09:31)
[2020-07-08] MEDS: ACIDOPHILUS/BULGARICUS 1 EACH TAB.CHEW GT SCH ×2 (09:32→20:08)
[2020-07-08] MEDS: CREON GT SCH ×3 (09:32→17:52)
[2020-07-08] MEDS: POLYETHYLENE GLYCOL 3350 17 GM POWD.PACK GT SCH (09:32)
[2020-07-08] MEDS: LOSARTAN POTASSIUM 50 MG TABLET GT SCH (09:32)
[2020-07-08] MEDS: PROPRANOLOL HCL 40 MG TABLET GT SCH (09:32)
[2020-07-08] MEDS: ENOXAPARIN SODIUM 40 MG/0.4 ML DISP.SYRIN SQ SCH (09:33)
[2020-07-08] MEDS: AMLODIPINE BESYLATE 5 MG TABLET GT SCH (09:33)
[2020-07-08] MEDS: SERTRALINE HCL 50 MG TABLET GT SCH (09:33)
[2020-07-08] MEDS: PROSOURCE / PROSTAT (PYXIS) 30 ML UDC GT SCH ×3 (09:33→17:52)
[2020-07-08] MEDS: ASCORBIC ACID 500 MG TABLET GT SCH (09:33)
[2020-07-08] MEDS: MULTIVIT W/MINERALS 1 TAB TABLET GT SCH (09:33)
[2020-07-08] MEDS ORDERED: COVID-19 VACC,MRNA(MODERNA) 100 MCG/0.5 ML IM ONE (11:00)
--- NOTE | 2020-07-08 11:00 | NUR ---
Patient noted to be sad, did not want to participate with OT and PT exercises, refused to ambulate with PT, refused breakfast, refused AM care at this time. Pt stated she feels tired and sad today and she knows it's part of her illness. Provided comfort to patient, listened to patient's concern, offered activities to patient but refused at this time. Needs met and attended. Continue to monitor and assist as needed.
--- NOTE | 2020-07-08 11:18 | NUR ---
Moderna Covid-19 vaccine administered on pt's right deltoid, tolerated well.
--- NOTE | 2020-07-08 11:29 | NUR ---
Family Invite to IDT: SW emailed the pt.'s daughter, Adan Mooney inviting them to participate in 07/09/2020 IDT Meeting. AZEB will follow up accordingly.
--- NOTE | 2020-07-08 12:20 | NUR ---
Facility Update: SW sent the pt.'s family, Adan Mooney a message via [employer] Text Application informing them that "No [facility] residents or employees tested positive for COVID-19 this week. As recommended by [facility], all Sub-Acute residents & healthcare personnel will continue receiving surveillance testing. [facility] continues to follow infection control protocols and screen our residents and staff daily for symptoms".
--- NOTE | 2020-07-08 13:33 | NUR ---
Resident is not in a good mood today.She refused to do anything , showed attitude to the the physical therapist.Complained about pain all over her body
--- NOTE | 2020-07-08 14:15 | NUR ---
Patient Check-in: SW met with pt. at bedside. Pt. stated her mood was better. Pt. used time for venting. Pt. stated she wanted to discuss medication: Lexapro & Ativan. Patient stated she does not receive it as often as she would like. SW explored why pt. feels she needs medication more often. Pt. stated she is experiencing symptoms of anxiety & depression. SW explored possible triggers. Pt. stated she does not have much to occupy her time with & her mind starts being occupied with negative thoughts. Per pt., her negative thoughts are surrounding her discharge plan. Patient stated, I dont have a home. I stay in the trailer home outside of my daughters home. who will take care of me? I want my own apartment in [place] & caregiver". SW reassured pt. that SW will collaborate with pt., family & IDT to ensure a safe & proper discharge plan. Pt. agreeable. SW discussed activities she likes. Pt. stated, calling friends. AZEB educated pt. how to make video & voice calls though ipad as cell recently stopped working. Pt. also stated she enjoys reading and requested large print mystery books. AZEB notified pt.s daughter, Adan Mooney of pt.s request. SW offered pt. to do video call with family. Pt. refused. SW respected pt.s self-determination. Plan: SW will engage family in D/C planning. SW will continue to provide clinical intervention through active listening in individual therapy as needed and promote interaction with support system. SW will continue to encourage pt. to participate in her rehab plan. Prison Officer will continue to engage pt. in activities.
[2020-07-08] MEDS: THERAHONEY GEL 1.5 OZ TUBE TP SCH ×2 (14:30→20:09)
[2020-07-08] MEDS: CLOTRIMAZOLE 1% 15 GM TUBE TP SCH ×2 (14:30→20:09)
[2020-07-08] MEDS: Z GUARD REMEDY 4 OZ OINT TP SCH ×2 (14:30→20:09)
[2020-07-08] MEDS: GUAIFENESIN 300 MG/15 ML UDC GT PRN (14:51)
--- NOTE | 2020-07-08 15:00 | NUR ---
Seen by CHRISTINA Adams. Received order to clamp and unclamp Roger catheter for 24 hours then DC Roger catheter.
--- NOTE | 2020-07-08 15:15 | NUR ---
Received order to give GT Feeding Jevity 1.2 at 50 mL/hr for 16 hours a day from 2 pm to 6 am. Pt has breakfast and lunch daily.
--- NOTE | 2020-07-08 16:00 | NUR ---
Seen by Dr Milo Hein. He said he or his PA will do GT site granulation debridement tomorrow. He ordered Lidocaine with epi and silver nitrate applicators.
--- NOTE | 2020-07-08 16:15 | NUR ---
Clamped huff catheter as ordered for bladder training prior to FC removal. Adequate hydration provided, proper aletha-care performed. Explained procedure to patient, verbalized understanding.
[2020-07-08] MEDS ORDERED: SILVER NITRATE APPLICATOR 1 EA BOX TP ONE (18:00)
--- NOTE | 2020-07-08 18:10 | NUR ---
Notified Adan that pt received her second dose of Moderna Covid-19 vaccine today. No adverse side effects noted at this time.
[2020-07-08] MEDS: LORAZEPAM 1 MG TABLET GT PRN (20:09)
[2020-07-08] MEDS: INSULIN GLARGINE, 100 UNIT/ML CARTRIDGE SQ SCH (21:08)
[2020-07-08] MEDS: ACETAMINOPHEN 650 MG/20 ML UDC- SA PATIENTS-PAIN ONLY GT PRN (22:03)
[2020-07-08] MEDS: TEMAZEPAM 15 MG CAPSULE GT PRN (22:04)
[2020-07-09] VITALS (7 sets, daily range): BP systolic 91–137; BP diastolic 53–74
[2020-07-09] MEDS: IPRATROPIUM NEB FS 0.5 MG/2.5 ML AMPUL.NEB NEB SCH ×4 (01:30→20:04)
[2020-07-09] MEDS: ALBUTEROL FS 2.5 MG/0.5 ML VIAL.NEB NEB SCH ×4 (01:30→20:04)
[2020-07-09] MEDS: HYDROCODONE/APAP 5/325MG TABLET GT PRN ×3 (02:47→20:46)
[2020-07-09] MEDS: BLOOD SUGAR DIAGNOSTIC 1 EACH STRIP IN SCH ×4 (05:24→23:49)
[2020-07-09] MEDS: SUCRALFATE 1 G/10 ML UDC GT SCH ×4 (05:24→23:49)
[2020-07-09] MEDS: OMEPRAZOLE 20 MG CAPSULE.DR GT SCH (05:24)
[2020-07-09] MEDS: INSULIN REGULAR, HUMAN 100 UNIT/ML 3 ML VIAL SQ PRN ×4 (05:24→23:50)
[2020-07-09] MEDS: MORPHINE SULFATE IR 15 MG TABLET GT SCH ×4 (05:24→23:49)
--- NOTE | 2020-07-09 06:03 | NUR ---
Post Moderna Covid Vaccination,no adverse reaction ,afebrile,patient only complained of pain in the injection site.Pain meds administered. Will continue continue to monitor.
[2020-07-09] MEDS: POLYETHYLENE GLYCOL 3350 17 GM POWD.PACK GT SCH (08:19)
[2020-07-09] MEDS: MULTIVIT W/MINERALS 1 TAB TABLET GT SCH (08:19)
[2020-07-09] MEDS: SERTRALINE HCL 50 MG TABLET GT SCH (08:19)
[2020-07-09] MEDS: CREON GT SCH ×3 (08:19→17:58)
[2020-07-09] MEDS: PROSOURCE / PROSTAT (PYXIS) 30 ML UDC GT SCH ×3 (08:19→17:58)
[2020-07-09] MEDS: ASCORBIC ACID 500 MG TABLET GT SCH (08:19)
[2020-07-09] MEDS: LOSARTAN POTASSIUM 50 MG TABLET GT SCH (08:19)
[2020-07-09] MEDS: AMLODIPINE BESYLATE 5 MG TABLET GT SCH (08:19)
[2020-07-09] MEDS: ACIDOPHILUS/BULGARICUS 1 EACH TAB.CHEW GT SCH ×2 (08:19→20:27)
[2020-07-09] MEDS: PROPRANOLOL HCL 40 MG TABLET GT SCH (08:19)
[2020-07-09] MEDS: ENOXAPARIN SODIUM 40 MG/0.4 ML DISP.SYRIN SQ SCH (08:20)
[2020-07-09] MEDS: ACETAMINOPHEN 650 MG/20 ML UDC- SA PATIENTS-PAIN ONLY GT PRN (08:20)
[2020-07-09] MEDS: HYDROGEN PEROXIDE 480 ML BOTTLE TP SCH ×2 (09:00→20:04)
[2020-07-09] MEDS: THERAHONEY GEL 1.5 OZ TUBE TP SCH ×2 (09:00→20:28)
[2020-07-09] MEDS: VITAMINS A AND D 56.7 GM TUBE TP SCH ×2 (09:00→20:28)
[2020-07-09] MEDS ORDERED: LIDOCAINE 1%-EPI 1:100,000 20 ML VIAL TP ONE (09:00)
[2020-07-09] MEDS: Z GUARD REMEDY 4 OZ OINT TP SCH ×2 (09:00→20:27)
[2020-07-09] MEDS: CLOTRIMAZOLE 1% 15 GM TUBE TP SCH ×2 (09:00→20:27)
--- NOTE | 2020-07-09 11:50 | NUR ---
CHRISTINA Crespo and CHRISTINA Nolasco for Dr. Milo Ordonez debrided sacral wound (1.5x1x1) and cauterized GT granulation. Patient medicated with pain medication [place] prior to procedure, well tolerated.
--- NOTE | 2020-07-09 13:22 | NUR ---
Resident is awake, had a short conversation,i offered activities for her so she doesn't get bored like board games , cards, reading, story telling. She refused to do any of these activities offered.Shes waiting for a book with big print that she can easily read.
--- NOTE | 2020-07-09 13:30 | NUR ---
It was discussed during IDT meeting that patient prefers to receive PO meals lunch and dinner instead of breakfast and lunch. Will adjust GT feeding time from 6AM to 10 AM to meet caloric needs. Dr. Gordon in agreement.
--- NOTE | 2020-07-09 14:00 | NUR ---
Dr. Gordon ordered to start trach capping trial on Sunday07/12/20 as tolerated. Order carried out. Resident and daughter aware of new order.
--- NOTE | 2020-07-09 14:56 | NUR ---
SS Note: AZEB called the pt.'s daughter, Adan Andrew [phone] as pt. requested reading material. AZEB also called daughter to engage family in discharge planning. AZEB will follow up as needed. Addendum: 07/09/20 at 1555 by JON BOWIE Adan did not answer, AZEB left voicemail & call back number. AZBE will follow up.
--- NOTE | 2020-07-09 15:48 | NUR ---
Individual Therapy: SW met with pt. bedside & educated pt. about positive affirmations. SW practiced positive affirmations with pt. Patient stated her mood today is "good".Pt. with distressed affect. Patient stated, "I used to do these when I didn't have as many health problems. I don't believe in them anymore, but I'm willing to try." SW left journal activity "10 minutes to recognize the good stuff" for patient to complete over the weekend.
--- NOTE | 2020-07-09 16:00 | NUR ---
F/c discontinued after 24 hrs of bladder training, no s/s of pain. Will continue to monitor.
--- NOTE | 2020-07-09 16:24 | NUR ---
INTERDISCIPLINARY PLAN OF CARE CONFERENCE took place today. The patients Daughter, Adan Andrew [phone] participated via [address] conference[address] Gordon and Interdisciplinary team discussed the plan of care in detail. Current orders as well as treatments and medications were reviewed. Charge Nurse discussed Pt. received first dose of Moderna vaccine on 06/10/2020. Dr. Gordon and the IDT addressed the familys questions. See other disciplines IDT notes for further details. Addendum: 07/09/20 at 1625 by JON BOWIE Pt. received 2nd dose of Moderna vaccine 07/08/2020.
--- NOTE | 2020-07-09 17:30 | NUR ---
Voided freely on diaper, denies pain when urinating, no hematuria noted. Afebrile the whole shift. Still complaining of right upper arm pain d/t covid-19 vaccine. Will continue to monitor.
[2020-07-09] MEDS: GLUCERNA 1.2 1,000 ML BOTTLE NG PRN (18:34)
[2020-07-09] MEDS: INSULIN GLARGINE, 100 UNIT/ML CARTRIDGE SQ SCH (21:11)
[2020-07-09] MEDS: TEMAZEPAM 15 MG CAPSULE GT PRN (21:59)
[2020-07-10] VITALS (8 sets, daily range): BP systolic 93–135; BP diastolic 56–69
[2020-07-10] MEDS: ALBUTEROL FS 2.5 MG/0.5 ML VIAL.NEB NEB SCH ×4 (01:19→20:03)
[2020-07-10] MEDS: IPRATROPIUM NEB FS 0.5 MG/2.5 ML AMPUL.NEB NEB SCH ×4 (01:19→20:03)
[2020-07-10] MEDS: LORAZEPAM 1 MG TABLET GT PRN ×2 (01:55→18:41)
[2020-07-10] MEDS: HYDROCODONE/APAP 5/325MG TABLET GT PRN ×3 (04:00→16:50)
[2020-07-10] MEDS: OMEPRAZOLE 20 MG CAPSULE.DR GT SCH (05:03)
[2020-07-10] MEDS: SUCRALFATE 1 G/10 ML UDC GT SCH ×4 (05:03→23:05)
[2020-07-10] MEDS: BLOOD SUGAR DIAGNOSTIC 1 EACH STRIP IN SCH ×4 (05:22→23:06)
[2020-07-10] MEDS: MORPHINE SULFATE IR 15 MG TABLET GT SCH ×4 (05:22→23:07)
[2020-07-10] MEDS: INSULIN REGULAR, HUMAN 100 UNIT/ML 3 ML VIAL SQ PRN ×4 (05:23→23:06)
--- NOTE | 2020-07-10 05:53 | NUR ---
S/p Moderna covid vaccination monitoring ,patient remains afebrile,no other symptoms. Patient only complained pain @ injection site.Will continue to monitor.
--- NOTE | 2020-07-10 06:23 | NUR ---
PATIENT RECEIVED ON 28% AEROSOL T-COLLAR, TOLERATING WITH NO DISTRESS/SOB NOTED. SUCTIONED FOR MODERATE, THICK, YELLOW SECRETIONS. GIVEN IN-LINE TREATMENT WITH NO ADVERSE REACTIONS. PATIENT REFUSED SECOND TREATMENT. AMBU BAG AT BEDSIDE. Addendum: 07/10/20 at 0624 by ABIGAIL DAMON RT Amended: Links added.
[2020-07-10] MEDS: LOSARTAN POTASSIUM 50 MG TABLET GT SCH (08:59)
[2020-07-10] MEDS: VITAMINS A AND D 56.7 GM TUBE TP SCH ×2 (09:00→20:35)
[2020-07-10] MEDS: Z GUARD REMEDY 4 OZ OINT TP SCH ×2 (09:00→20:34)
[2020-07-10] MEDS: PROPRANOLOL HCL 40 MG TABLET GT SCH (09:00)
[2020-07-10] MEDS: THERAHONEY GEL 1.5 OZ TUBE TP SCH ×2 (09:00→20:34)
[2020-07-10] MEDS: CLOTRIMAZOLE 1% 15 GM TUBE TP SCH ×2 (09:00→20:34)
[2020-07-10] MEDS: AMLODIPINE BESYLATE 5 MG TABLET GT SCH (09:01)
[2020-07-10] MEDS: ACIDOPHILUS/BULGARICUS 1 EACH TAB.CHEW GT SCH ×2 (09:01→20:34)
[2020-07-10] MEDS: POLYETHYLENE GLYCOL 3350 17 GM POWD.PACK GT SCH (09:01)
[2020-07-10] MEDS: CREON GT SCH ×3 (09:01→17:48)
[2020-07-10] MEDS: ASCORBIC ACID 500 MG TABLET GT SCH (09:02)
[2020-07-10] MEDS: SERTRALINE HCL 50 MG TABLET GT SCH (09:02)
[2020-07-10] MEDS: PROSOURCE / PROSTAT (PYXIS) 30 ML UDC GT SCH ×3 (09:02→17:48)
[2020-07-10] MEDS: MULTIVIT W/MINERALS 1 TAB TABLET GT SCH (09:02)
[2020-07-10] MEDS: ENOXAPARIN SODIUM 40 MG/0.4 ML DISP.SYRIN SQ SCH (09:03)
[2020-07-10] MEDS: HYDROGEN PEROXIDE 480 ML BOTTLE TP SCH ×2 (09:10→21:30)
--- NOTE | 2020-07-10 10:30 | NUR ---
patient complain of right upper arm pain, s/p covid vaccine second dose. [place] prn given as order, LORETTA (Epifanio) notified, kept comfortable, clean and dry. Call light within reach.
--- NOTE | 2020-07-10 15:02 | NUR ---
Resident is in a better mood after taking all her pills. She refused to do anything in terms of activities .She was pleasant during conversation.
--- NOTE | 2020-07-10 15:33 | NUR ---
patient trach changed done with minimal bleeding. Patient with bilateral breath rise and sounds. Patient remain stable without any distress
[2020-07-10] MEDS: GLUCERNA 1.2 1,000 ML BOTTLE NG PRN (18:46)
[2020-07-10] MEDS: INSULIN GLARGINE, 100 UNIT/ML CARTRIDGE SQ SCH (21:09)
[2020-07-10] MEDS: TEMAZEPAM 15 MG CAPSULE GT PRN (21:19)
[2020-07-11] VITALS (7 sets, daily range): BP systolic 96–120; BP diastolic 62–72
[2020-07-11] MEDS: ALBUTEROL FS 2.5 MG/0.5 ML VIAL.NEB NEB SCH ×4 (01:37→19:52)
[2020-07-11] MEDS: IPRATROPIUM NEB FS 0.5 MG/2.5 ML AMPUL.NEB NEB SCH ×4 (01:37→19:52)
[2020-07-11] MEDS: HYDROCODONE/APAP 5/325MG TABLET GT PRN ×2 (04:40→16:45)
[2020-07-11] MEDS: OMEPRAZOLE 20 MG CAPSULE.DR GT SCH (05:13)
[2020-07-11] MEDS: INSULIN REGULAR, HUMAN 100 UNIT/ML 3 ML VIAL SQ PRN ×3 (05:13→18:07)
[2020-07-11] MEDS: SUCRALFATE 1 G/10 ML UDC GT SCH ×3 (05:13→18:06)
[2020-07-11] MEDS: BLOOD SUGAR DIAGNOSTIC 1 EACH STRIP IN SCH ×3 (05:13→18:06)
[2020-07-11] MEDS: MORPHINE SULFATE IR 15 MG TABLET GT SCH ×3 (05:24→18:06)
[2020-07-11] MEDS: HYDROGEN PEROXIDE 480 ML BOTTLE TP SCH ×2 (08:11→21:22)
[2020-07-11] MEDS: Z GUARD REMEDY 4 OZ OINT TP SCH ×2 (09:00→20:19)
[2020-07-11] MEDS: ASCORBIC ACID 500 MG TABLET GT SCH (09:00)
[2020-07-11] MEDS: AMLODIPINE BESYLATE 5 MG TABLET GT SCH (09:00)
[2020-07-11] MEDS: CREON GT SCH ×3 (09:00→17:00)
[2020-07-11] MEDS: PROSOURCE / PROSTAT (PYXIS) 30 ML UDC GT SCH ×3 (09:00→17:00)
[2020-07-11] MEDS: VITAMINS A AND D 56.7 GM TUBE TP SCH ×2 (09:00→20:19)
[2020-07-11] MEDS: PROPRANOLOL HCL 40 MG TABLET GT SCH (09:00)
[2020-07-11] MEDS: SERTRALINE HCL 50 MG TABLET GT SCH (09:00)
[2020-07-11] MEDS: CLOTRIMAZOLE 1% 15 GM TUBE TP SCH ×2 (09:00→20:19)
[2020-07-11] MEDS: THERAHONEY GEL 1.5 OZ TUBE TP SCH ×2 (09:00→20:19)
[2020-07-11] MEDS: MULTIVIT W/MINERALS 1 TAB TABLET GT SCH (09:00)
[2020-07-11] MEDS: LOSARTAN POTASSIUM 50 MG TABLET GT SCH (09:00)
[2020-07-11] MEDS: ENOXAPARIN SODIUM 40 MG/0.4 ML DISP.SYRIN SQ SCH (09:00)
[2020-07-11] MEDS: POLYETHYLENE GLYCOL 3350 17 GM POWD.PACK GT SCH (09:00)
[2020-07-11] MEDS: ACIDOPHILUS/BULGARICUS 1 EACH TAB.CHEW GT SCH ×2 (09:00→20:19)
[2020-07-11] MEDS: LORAZEPAM 1 MG TABLET GT PRN ×2 (14:07→20:21)
[2020-07-11] MEDS: GLUCERNA 1.2 1,000 ML BOTTLE NG PRN (18:00)
[2020-07-11] MEDS: TEMAZEPAM 15 MG CAPSULE GT PRN (20:21)
[2020-07-11] MEDS: INSULIN GLARGINE, 100 UNIT/ML CARTRIDGE SQ SCH (21:14)
[2020-07-12] VITALS (8 sets, daily range): BP systolic 89–122; BP diastolic 50–69
[2020-07-12] MEDS: BLOOD SUGAR DIAGNOSTIC 1 EACH STRIP IN SCH ×4 (00:06→17:21)
[2020-07-12] MEDS: MORPHINE SULFATE IR 15 MG TABLET GT SCH ×4 (00:06→18:00)
[2020-07-12] MEDS: SUCRALFATE 1 G/10 ML UDC GT SCH ×4 (00:06→17:21)
[2020-07-12] MEDS: INSULIN REGULAR, HUMAN 100 UNIT/ML 3 ML VIAL SQ PRN ×4 (00:08→17:22)
[2020-07-12] MEDS: ALBUTEROL FS 2.5 MG/0.5 ML VIAL.NEB NEB SCH ×4 (02:27→19:42)
[2020-07-12] MEDS: IPRATROPIUM NEB FS 0.5 MG/2.5 ML AMPUL.NEB NEB SCH ×4 (02:27→19:42)
[2020-07-12] MEDS: OMEPRAZOLE 20 MG CAPSULE.DR GT SCH (05:39)
[2020-07-12] MEDS: HYDROGEN PEROXIDE 480 ML BOTTLE TP SCH ×2 (08:11→19:42)
[2020-07-12] MEDS: THERAHONEY GEL 1.5 OZ TUBE TP SCH ×2 (09:00→20:13)
[2020-07-12] MEDS: VITAMINS A AND D 56.7 GM TUBE TP SCH ×2 (09:00→20:14)
[2020-07-12] MEDS: CLOTRIMAZOLE 1% 15 GM TUBE TP SCH ×2 (09:00→20:13)
[2020-07-12] MEDS: Z GUARD REMEDY 4 OZ OINT TP SCH ×2 (09:00→20:13)
[2020-07-12] MEDS: LOSARTAN POTASSIUM 50 MG TABLET GT SCH (09:39)
[2020-07-12] MEDS: POLYETHYLENE GLYCOL 3350 17 GM POWD.PACK GT SCH (09:40)
[2020-07-12] MEDS: ACIDOPHILUS/BULGARICUS 1 EACH TAB.CHEW GT SCH ×2 (09:40→20:13)
[2020-07-12] MEDS: AMLODIPINE BESYLATE 5 MG TABLET GT SCH (09:40)
[2020-07-12] MEDS: SERTRALINE HCL 50 MG TABLET GT SCH (09:40)
[2020-07-12] MEDS: ASCORBIC ACID 500 MG TABLET GT SCH (09:40)
[2020-07-12] MEDS: CREON GT SCH ×3 (09:40→16:43)
[2020-07-12] MEDS: PROPRANOLOL HCL 40 MG TABLET GT SCH (09:40)
[2020-07-12] MEDS: MULTIVIT W/MINERALS 1 TAB TABLET GT SCH (09:40)
[2020-07-12] MEDS: PROSOURCE / PROSTAT (PYXIS) 30 ML UDC GT SCH ×3 (09:40→16:43)
[2020-07-12] MEDS: ENOXAPARIN SODIUM 40 MG/0.4 ML DISP.SYRIN SQ SCH (09:41)
[2020-07-12] MEDS: HYDROCODONE/APAP 5/325MG TABLET GT PRN ×2 (09:57→17:21)
[2020-07-12] MEDS: LORAZEPAM 1 MG TABLET GT PRN ×2 (12:29→20:17)
--- NOTE | 2020-07-12 12:29 | NUR ---
Resident complained that she's feeling anxious, she just finished walking with PT. Tried to divert attention by changing TV channel, i asked about her daughter and encouraged to verbalized her feelings. Intervention was ineffective, patient still asked for Ativan. Will continue to monitor.
--- NOTE | 2020-07-12 14:17 | NUR ---
Pt's trach has been capped for 3 hours now and she is tolerating well. Asked WASTE OIL PUMPER Rebecca Adams if ABG needs to be drawn. She ordered to do ABG tomorrow if pt is comfortable. Pt comfortable with trach capping. Notified RT Jamshid about ABG order for tomorrow.
--- NOTE | 2020-07-12 14:25 | NUR ---
RT Jamshid reported that he removed pt's trach cap per pt's request as she if feeling tired using it, O2 sat 95-96%.
--- NOTE | 2020-07-12 14:30 | NUR ---
RT @1105- Trach cap placed on patient per MR orders with 2Lpm via NC. RN Marley aware. Pt tolerating well @1420- Trach cap removed per patient request due to SOB. Patient placed on previous CA order. Patient maintained Sp02 >95% throughout trach cap trial. Will continue to monitor
--- NOTE | 2020-07-12 14:45 | NUR ---
Notified Dr Qureshi that pt's BP 89/50 HR 71. Pt verbalized she feels tired. Dr Qureshi ordered to DC Cozaar, Propanolol, and Norvasc. Notified pt.
--- NOTE | 2020-07-12 15:08 | NUR ---
SW attempted to meet with pt., however, pt. was asleep and rousable to verbal cues. Pt. requested SW return at a later time. SW to check-in on pt. at a later time.
--- NOTE | 2020-07-12 17:07 | NUR ---
Pt's BP 103/68 HR 79
[2020-07-12] MEDS: GLUCERNA 1.2 1,000 ML BOTTLE NG PRN (18:00)
[2020-07-12] MEDS: TEMAZEPAM 15 MG CAPSULE GT PRN (20:17)
[2020-07-12] MEDS: INSULIN GLARGINE, 100 UNIT/ML CARTRIDGE SQ SCH (21:09)
[2020-07-12] MEDS: ACETAMINOPHEN 650 MG/20 ML UDC- SA PATIENTS-PAIN ONLY GT PRN (21:27)
[2020-07-13] VITALS (7 sets, daily range): BP systolic 88–114; BP diastolic 54–72
[2020-07-13] MEDS: SUCRALFATE 1 G/10 ML UDC GT SCH ×4 (00:14→17:18)
[2020-07-13] MEDS: BLOOD SUGAR DIAGNOSTIC 1 EACH STRIP IN SCH ×4 (00:15→17:18)
[2020-07-13] MEDS: MORPHINE SULFATE IR 15 MG TABLET GT SCH ×4 (00:15→17:47)
[2020-07-13] MEDS: INSULIN REGULAR, HUMAN 100 UNIT/ML 3 ML VIAL SQ PRN ×4 (00:16→17:20)
[2020-07-13] MEDS: IPRATROPIUM NEB FS 0.5 MG/2.5 ML AMPUL.NEB NEB SCH ×4 (01:30→20:01)
[2020-07-13] MEDS: ALBUTEROL FS 2.5 MG/0.5 ML VIAL.NEB NEB SCH ×4 (01:30→20:01)
[2020-07-13] MEDS: OMEPRAZOLE 20 MG CAPSULE.DR GT SCH (05:27)
[2020-07-13] MEDS: HYDROGEN PEROXIDE 480 ML BOTTLE TP SCH ×2 (08:04→20:01)
[2020-07-13] MEDS: ACIDOPHILUS/BULGARICUS 1 EACH TAB.CHEW GT SCH ×2 (08:40→20:20)
[2020-07-13] MEDS: POLYETHYLENE GLYCOL 3350 17 GM POWD.PACK GT SCH (08:41)
[2020-07-13] MEDS: ASCORBIC ACID 500 MG TABLET GT SCH (08:42)
[2020-07-13] MEDS: MULTIVIT W/MINERALS 1 TAB TABLET GT SCH (08:42)
[2020-07-13] MEDS: PROSOURCE / PROSTAT (PYXIS) 30 ML UDC GT SCH ×3 (08:42→17:18)
[2020-07-13] MEDS: CREON GT SCH ×3 (08:42→17:18)
[2020-07-13] MEDS: SERTRALINE HCL 50 MG TABLET GT SCH (08:43)
[2020-07-13] MEDS: ENOXAPARIN SODIUM 40 MG/0.4 ML DISP.SYRIN SQ SCH (08:44)
[2020-07-13] MEDS: THERAHONEY GEL 1.5 OZ TUBE TP SCH ×2 (09:00→20:21)
[2020-07-13] MEDS: VITAMINS A AND D 56.7 GM TUBE TP SCH ×2 (09:00→20:21)
[2020-07-13] MEDS: Z GUARD REMEDY 4 OZ OINT TP SCH ×2 (09:00→20:20)
[2020-07-13] MEDS: CLOTRIMAZOLE 1% 15 GM TUBE TP SCH ×2 (09:00→20:20)
--- NOTE | 2020-07-13 09:20 | NUR ---
RT NOTE PT PLACED ON ALLERGIST/IMMUNOLOGIST PER MD ORDER. PT LASTED FOR 5 MINUTES. PT COMPLAINED OF DIFFICULTY TO BREATH. RT NOTED RESPIRATORY DISTRESS. PT PLACED BACK ON COOL AEROSOL WITH PREVIOUS SETTINGS. CASSIDY DUMAS. NO SOB NOTED POST PLACING PATIENT BACK ON COOL AEROSOL. Addendum: 07/13/20 at 0936 by LIDA JACKSON RT RECEIVED ORDER TO CANCEL ABG. CASSIDY ANDERSON AWARE.
--- NOTE | 2020-07-13 09:50 | NUR ---
Pt only tolerated 5 minutes of trach capping. Pt was SOB and had some stridor. Dr Gordon ordered to change trach tube from [place] 8 to [place] 6.
--- NOTE | 2020-07-13 13:57 | NUR ---
Resident is not in a good mood in the morning+. Refused to do any activities offered, In the afternoon she smiled and had a short conversation .
--- NOTE | 2020-07-13 13:58 | NUR ---
RT NOTE TRACH CHANGE PERFORMED PER MD ORDER. PT TRACH CHANGED FROM SHILEY 8 TO PORTEX 6 CUFFED PER MD ORDER. TRACH CHANGE PERFORMED WITH NO COMPLICATIONS. SX DONE PRE/POST PROCEDURE. BILATERAL BREATHE SOUNDS AND CHEST RISE NOTED. MINIMAL BLEEDING AND NO REDNESS NOTED. BLEEDING SUBSIDE. CHARGE NURSE JUSTIN DUMAS. NO SOB NOTED. Addendum: 07/13/20 at 1559 by LIDA JACKSON RT PT TRACH IS PATENT AND SECURE.
[2020-07-13] MEDS: TEMAZEPAM 15 MG CAPSULE GT PRN (20:22)
[2020-07-13] MEDS: LORAZEPAM 1 MG TABLET GT PRN (20:22)
[2020-07-13] MEDS: INSULIN GLARGINE, 100 UNIT/ML CARTRIDGE SQ SCH (22:28)
[2020-07-14] VITALS (8 sets, daily range): BP systolic 101–124; BP diastolic 62–76
[2020-07-14] MEDS: SUCRALFATE 1 G/10 ML UDC GT SCH ×4 (00:14→17:26)
[2020-07-14] MEDS: MORPHINE SULFATE IR 15 MG TABLET GT SCH ×4 (00:15→17:27)
[2020-07-14] MEDS: BLOOD SUGAR DIAGNOSTIC 1 EACH STRIP IN SCH ×4 (00:15→17:27)
[2020-07-14] MEDS: INSULIN REGULAR, HUMAN 100 UNIT/ML 3 ML VIAL SQ PRN ×4 (00:16→17:32)
[2020-07-14] MEDS: ALBUTEROL FS 2.5 MG/0.5 ML VIAL.NEB NEB SCH ×4 (01:38→20:18)
[2020-07-14] MEDS: IPRATROPIUM NEB FS 0.5 MG/2.5 ML AMPUL.NEB NEB SCH ×4 (01:38→20:18)
[2020-07-14] MEDS: GLUCERNA 1.2 1,000 ML BOTTLE NG PRN (04:23)
[2020-07-14] MEDS: OMEPRAZOLE 20 MG CAPSULE.DR GT SCH (05:29)
--- NOTE | 2020-07-14 08:40 | NUR ---
Left a message to Dr. Qureshi that patient is requesting additional sleeping pill. Awaiting for call back.
[2020-07-14] MEDS: HYDROGEN PEROXIDE 480 ML BOTTLE TP SCH ×2 (08:54→21:00)
[2020-07-14] MEDS: THERAHONEY GEL 1.5 OZ TUBE TP SCH ×2 (09:00→21:00)
[2020-07-14] MEDS: ASCORBIC ACID 500 MG TABLET GT SCH (09:17)
[2020-07-14] MEDS: MULTIVIT W/MINERALS 1 TAB TABLET GT SCH (09:17)
[2020-07-14] MEDS: POLYETHYLENE GLYCOL 3350 17 GM POWD.PACK GT SCH (09:17)
[2020-07-14] MEDS: ACIDOPHILUS/BULGARICUS 1 EACH TAB.CHEW GT SCH ×2 (09:17→21:00)
[2020-07-14] MEDS: SERTRALINE HCL 50 MG TABLET GT SCH (09:17)
[2020-07-14] MEDS: CREON GT SCH ×3 (09:17→17:26)
[2020-07-14] MEDS: PROSOURCE / PROSTAT (PYXIS) 30 ML UDC GT SCH ×3 (09:17→17:26)
[2020-07-14] MEDS: Z GUARD REMEDY 4 OZ OINT TP SCH ×2 (09:18→21:00)
[2020-07-14] MEDS: ENOXAPARIN SODIUM 40 MG/0.4 ML DISP.SYRIN SQ SCH (09:18)
[2020-07-14] MEDS: CLOTRIMAZOLE 1% 15 GM TUBE TP SCH ×2 (09:18→21:00)
[2020-07-14] MEDS: VITAMINS A AND D 56.7 GM TUBE TP SCH ×2 (09:19→21:00)
[2020-07-14] MEDS: HYDROCODONE/APAP 5/325MG TABLET GT PRN ×2 (11:20→19:54)
--- NOTE | 2020-07-14 14:24 | NUR ---
Today resident is quite pleasant, she walks good today with the help of a physical therapist .She refused to do any activities at all.
[2020-07-14] MEDS: INSULIN GLARGINE, 100 UNIT/ML CARTRIDGE SQ SCH (22:03)
[2020-07-14] MEDS: TEMAZEPAM 15 MG CAPSULE GT PRN (22:06)
--- NOTE | 2020-07-14 23:37 | NUR ---
Patient still awake even after given the prn 15 mg temazepam at 2206. Complaining the sleeping pill is not effective. Provided a quiet environment for sleep motivation.
[2020-07-15] VITALS (8 sets, daily range): BP systolic 95–119; BP diastolic 59–74
[2020-07-15] MEDS: SUCRALFATE 1 G/10 ML UDC GT SCH ×4 (00:05→18:10)
[2020-07-15] MEDS: MORPHINE SULFATE IR 15 MG TABLET GT SCH ×4 (00:05→18:10)
[2020-07-15] MEDS: BLOOD SUGAR DIAGNOSTIC 1 EACH STRIP IN SCH ×4 (00:08→18:10)
[2020-07-15] MEDS: INSULIN REGULAR, HUMAN 100 UNIT/ML 3 ML VIAL SQ PRN ×4 (00:10→18:11)
[2020-07-15] MEDS: ALBUTEROL FS 2.5 MG/0.5 ML VIAL.NEB NEB SCH ×4 (01:00→20:11)
[2020-07-15] MEDS: IPRATROPIUM NEB FS 0.5 MG/2.5 ML AMPUL.NEB NEB SCH ×4 (01:00→20:11)
[2020-07-15] MEDS: LORAZEPAM 1 MG TABLET GT PRN ×2 (02:08→22:50)
[2020-07-15] MEDS: OMEPRAZOLE 20 MG CAPSULE.DR GT SCH (06:12)
[2020-07-15] MEDS: HYDROGEN PEROXIDE 480 ML BOTTLE TP SCH ×2 (08:03→21:29)
[2020-07-15] MEDS: THERAHONEY GEL 1.5 OZ TUBE TP SCH ×2 (09:34→20:40)
[2020-07-15] MEDS: SERTRALINE HCL 50 MG TABLET GT SCH (09:34)
[2020-07-15] MEDS: CREON GT SCH ×3 (09:34→17:50)
[2020-07-15] MEDS: POLYETHYLENE GLYCOL 3350 17 GM POWD.PACK GT SCH (09:34)
[2020-07-15] MEDS: PROSOURCE / PROSTAT (PYXIS) 30 ML UDC GT SCH ×3 (09:34→17:50)
[2020-07-15] MEDS: CLOTRIMAZOLE 1% 15 GM TUBE TP SCH ×2 (09:34→20:40)
[2020-07-15] MEDS: MULTIVIT W/MINERALS 1 TAB TABLET GT SCH (09:34)
[2020-07-15] MEDS: ACIDOPHILUS/BULGARICUS 1 EACH TAB.CHEW GT SCH ×2 (09:34→20:40)
[2020-07-15] MEDS: ASCORBIC ACID 500 MG TABLET GT SCH (09:34)
[2020-07-15] MEDS: Z GUARD REMEDY 4 OZ OINT TP SCH ×2 (09:34→20:40)
[2020-07-15] MEDS: VITAMINS A AND D 56.7 GM TUBE TP SCH ×2 (09:34→20:40)
[2020-07-15] MEDS: ENOXAPARIN SODIUM 40 MG/0.4 ML DISP.SYRIN SQ SCH (09:36)
[2020-07-15] MEDS: HYDROCODONE/APAP 5/325MG TABLET GT PRN ×2 (09:36→20:40)
[2020-07-15] MEDS: METOCLOPRAMIDE HCL 10 MG TABLET GT PRN (09:42)
[2020-07-15] MEDS: GLUCERNA 1.2 1,000 ML BOTTLE NG PRN (14:15)
--- NOTE | 2020-07-15 14:40 | NUR ---
Resident is friendly today participated in walking , more responsive with staff and make her needs known. Shes pleasant today.
--- NOTE | 2020-07-15 16:12 | NUR ---
Patient placed on tcap with 2Lpm via NC per MR orders @ 1250. RN Marley aware @5005 trach cap removed per pt request due to SOB. Patient placed on CA order. Pt tolerating well. No SOB noted
--- NOTE | 2020-07-15 18:45 | NUR ---
Continue bowel and bladder training for pt. Pt had 2 episodes of incontinence this AM but was able to ask for bed javier x 3. Offered to use commode but pt refused and stated "I do, but I don't want to use it". Pt felt tired today. Proper aletha-care rendered, adequate hydration provided. Continue to offer commode/ bed javier to patient.
[2020-07-15] MEDS: INSULIN GLARGINE, 100 UNIT/ML CARTRIDGE SQ SCH (21:44)
[2020-07-15] MEDS: TEMAZEPAM 15 MG CAPSULE GT PRN (21:45)
[2020-07-16] VITALS (8 sets, daily range): BP systolic 112–124; BP diastolic 68–79
[2020-07-16] MEDS: MORPHINE SULFATE IR 15 MG TABLET GT SCH ×4 (00:20→17:27)
[2020-07-16] MEDS: SUCRALFATE 1 G/10 ML UDC GT SCH ×5 (00:20→23:43)
[2020-07-16] MEDS: INSULIN REGULAR, HUMAN 100 UNIT/ML 3 ML VIAL SQ PRN ×5 (00:24→23:45)
[2020-07-16] MEDS: BLOOD SUGAR DIAGNOSTIC 1 EACH STRIP IN SCH ×5 (00:24→23:43)
[2020-07-16] MEDS: ALBUTEROL FS 2.5 MG/0.5 ML VIAL.NEB NEB SCH ×5 (01:09→20:04)
[2020-07-16] MEDS: IPRATROPIUM NEB FS 0.5 MG/2.5 ML AMPUL.NEB NEB SCH ×5 (01:09→20:04)
[2020-07-16] MEDS: OMEPRAZOLE 20 MG CAPSULE.DR GT SCH (06:28)
[2020-07-16] MEDS: HYDROGEN PEROXIDE 480 ML BOTTLE TP SCH ×2 (08:22→21:26)
[2020-07-16] MEDS: ACIDOPHILUS/BULGARICUS 1 EACH TAB.CHEW GT SCH ×2 (08:42→21:24)
[2020-07-16] MEDS: PROSOURCE / PROSTAT (PYXIS) 30 ML UDC GT SCH ×3 (08:42→17:27)
[2020-07-16] MEDS: ASCORBIC ACID 500 MG TABLET GT SCH (08:42)
[2020-07-16] MEDS: SERTRALINE HCL 50 MG TABLET GT SCH (08:42)
[2020-07-16] MEDS: MULTIVIT W/MINERALS 1 TAB TABLET GT SCH (08:42)
[2020-07-16] MEDS: CREON GT SCH ×3 (08:42→17:27)
[2020-07-16] MEDS: POLYETHYLENE GLYCOL 3350 17 GM POWD.PACK GT SCH (08:42)
[2020-07-16] MEDS: ENOXAPARIN SODIUM 40 MG/0.4 ML DISP.SYRIN SQ SCH (08:43)
[2020-07-16] MEDS: HYDROCODONE/APAP 5/325MG TABLET GT PRN ×3 (08:44→21:28)
[2020-07-16] MEDS: VITAMINS A AND D 56.7 GM TUBE TP SCH ×2 (09:00→21:24)
[2020-07-16] MEDS: THERAHONEY GEL 1.5 OZ TUBE TP SCH ×2 (09:00→21:24)
--- NOTE | 2020-07-16 14:12 | NUR ---
Resident looks happy today, she requested for coffee in the morning but no breakfast at all . She walked with the help of the therapist.
--- NOTE | 2020-07-16 16:24 | NUR ---
Facility Update: SW sent the pt.'s family, Adan Mooney a message via [employer] Text [employer] informing them that "No [facility] residents or employees tested positive for COVID-19 this week. As recommended by [facility], all Sub-Acute residents & healthcare personnel will continue receiving surveillance testing. [facility] continues to follow infection control protocols and screen our residents and staff daily for symptoms".
--- NOTE | 2020-07-16 16:37 | NUR ---
Pt. Check-in: AZBE met with pt. bedside. AZEB observed pt. Smiling. AZEB provided sheet with "positive coping mechanisms" for pt. to practice. Pt. was receptive and stated she is willing to "try". SW recited positive affirmation with pt. Pt. remained calm & cooperative. Pt. stated she had a good week. Pt. stated she would like to call her daughter, Adan. AZEB asked Rafita HANSON to see if they can install a landline phone in pt.'s room. Pt. thanked SW. AZEB will continue to meet with pt. as needed and provide support.
--- NOTE | 2020-07-16 20:00 | NUR ---
Patient seen and examined by Dr. Qureshi with new orders to discontinue Restoril 15 mg QHS PRN ,change to Trazadone 100mg via gt QHS PRN.Patient encouraged to use bedside commode with nursing staff air defense officer. Will carry out orders. Addendum: 07/16/20 at [address] RN [address] Qureshi also orders to have dermatology consult for the facial area and hand rash/ irritation. Will notify AZEB on Sunday to call call .
[2020-07-16] MEDS ORDERED: TRAZODONE 50 MG TABLET GT PRN (20:30)
[2020-07-16] MEDS: INSULIN GLARGINE, 100 UNIT/ML CARTRIDGE SQ SCH (21:49)
[2020-07-17] VITALS (8 sets, daily range): BP systolic 112–129; BP diastolic 63–78
[2020-07-17] MEDS: MORPHINE SULFATE IR 15 MG TABLET GT SCH ×5 (00:34→23:55)
[2020-07-17] MEDS: GLUCERNA 1.2 1,000 ML BOTTLE NG PRN ×2 (01:00→19:16)
[2020-07-17] MEDS: ALBUTEROL FS 2.5 MG/0.5 ML VIAL.NEB NEB SCH ×4 (01:46→20:11)
[2020-07-17] MEDS: IPRATROPIUM NEB FS 0.5 MG/2.5 ML AMPUL.NEB NEB SCH ×4 (01:46→20:11)
[2020-07-17] MEDS: HYDROCODONE/APAP 5/325MG TABLET GT PRN ×3 (03:57→20:12)
[2020-07-17] MEDS: MAG HYDROX/AL HYDROX/SIMETH 30 ML UDC GT PRN ×2 (04:52→11:07)
[2020-07-17] MEDS: SUCRALFATE 1 G/10 ML UDC GT SCH ×4 (05:55→23:55)
[2020-07-17] MEDS: OMEPRAZOLE 20 MG CAPSULE.DR GT SCH (05:55)
[2020-07-17] MEDS: BLOOD SUGAR DIAGNOSTIC 1 EACH STRIP IN SCH ×4 (05:56→23:55)
[2020-07-17] MEDS: INSULIN REGULAR, HUMAN 100 UNIT/ML 3 ML VIAL SQ PRN ×4 (05:56→23:56)
[2020-07-17] MEDS: HYDROGEN PEROXIDE 480 ML BOTTLE TP SCH ×2 (08:10→22:02)
[2020-07-17] MEDS: SERTRALINE HCL 50 MG TABLET GT SCH (08:16)
[2020-07-17] MEDS: PROSOURCE / PROSTAT (PYXIS) 30 ML UDC GT SCH ×3 (08:16→17:05)
[2020-07-17] MEDS: MULTIVIT W/MINERALS 1 TAB TABLET GT SCH (08:16)
[2020-07-17] MEDS: ENOXAPARIN SODIUM 40 MG/0.4 ML DISP.SYRIN SQ SCH (08:16)
[2020-07-17] MEDS: POLYETHYLENE GLYCOL 3350 17 GM POWD.PACK GT SCH (08:16)
[2020-07-17] MEDS: CREON GT SCH ×3 (08:16→17:05)
[2020-07-17] MEDS: VITAMINS A AND D 56.7 GM TUBE TP SCH ×2 (08:16→21:07)
[2020-07-17] MEDS: ACIDOPHILUS/BULGARICUS 1 EACH TAB.CHEW GT SCH ×2 (08:16→20:05)
[2020-07-17] MEDS: ASCORBIC ACID 500 MG TABLET GT SCH (08:16)
[2020-07-17] MEDS: THERAHONEY GEL 1.5 OZ TUBE TP SCH ×2 (08:16→21:07)
[2020-07-17] MEDS: LORAZEPAM 1 MG TABLET GT PRN ×2 (09:44→22:48)
[2020-07-17] MEDS: METOCLOPRAMIDE HCL 10 MG TABLET GT PRN (13:59)
--- NOTE | 2020-07-17 14:53 | NUR ---
Resident was complaining today that she was not able to sleep last night . Her tummy hurts the whole night last night,She complained that her sleeping pills was changed that doesn't help her at all.
--- NOTE | 2020-07-17 18:30 | NUR ---
Resident alert, trach capped and tolerating well. Patient offered and assisted to bedside commode and went 3x for bowel and urine. Patient demonstrated ability to transfer with minimal assist using bedside commode, requiring assistance in cleaning after bowel elimination. Patient cooperated with staff.
[2020-07-17] MEDS: INSULIN GLARGINE, 100 UNIT/ML CARTRIDGE SQ SCH (22:06)
[2020-07-18] VITALS (9 sets, daily range): BP systolic 107–121; BP diastolic 66–74
[2020-07-18] MEDS: ALBUTEROL FS 2.5 MG/0.5 ML VIAL.NEB NEB SCH ×4 (01:30→19:06)
[2020-07-18] MEDS: IPRATROPIUM NEB FS 0.5 MG/2.5 ML AMPUL.NEB NEB SCH ×4 (01:30→19:06)
[2020-07-18] MEDS: OMEPRAZOLE 20 MG CAPSULE.DR GT SCH (05:14)
[2020-07-18] MEDS: SUCRALFATE 1 G/10 ML UDC GT SCH ×3 (05:14→18:02)
[2020-07-18] MEDS: BLOOD SUGAR DIAGNOSTIC 1 EACH STRIP IN SCH ×3 (06:11→18:03)
[2020-07-18] MEDS: MORPHINE SULFATE IR 15 MG TABLET GT SCH ×3 (06:11→18:02)
[2020-07-18] MEDS: INSULIN REGULAR, HUMAN 100 UNIT/ML 3 ML VIAL SQ PRN ×3 (06:11→18:06)
[2020-07-18] MEDS: HYDROGEN PEROXIDE 480 ML BOTTLE TP SCH ×2 (08:39→21:38)
[2020-07-18] MEDS: HYDROCODONE/APAP 5/325MG TABLET GT PRN ×3 (08:49→21:32)
[2020-07-18] MEDS: VITAMINS A AND D 56.7 GM TUBE TP SCH ×2 (09:00→20:14)
[2020-07-18] MEDS: SERTRALINE HCL 50 MG TABLET GT SCH (09:00)
[2020-07-18] MEDS: THERAHONEY GEL 1.5 OZ TUBE TP SCH ×3 (09:00→20:13)
[2020-07-18] MEDS: ENOXAPARIN SODIUM 40 MG/0.4 ML DISP.SYRIN SQ SCH (09:00)
[2020-07-18] MEDS: PROSOURCE / PROSTAT (PYXIS) 30 ML UDC GT SCH ×3 (09:00→17:00)
[2020-07-18] MEDS: ACIDOPHILUS/BULGARICUS 1 EACH TAB.CHEW GT SCH ×2 (09:00→20:13)
[2020-07-18] MEDS: CREON GT SCH ×3 (09:00→17:00)
[2020-07-18] MEDS: ASCORBIC ACID 500 MG TABLET GT SCH (09:00)
[2020-07-18] MEDS: POLYETHYLENE GLYCOL 3350 17 GM POWD.PACK GT SCH (09:00)
[2020-07-18] MEDS: MULTIVIT W/MINERALS 1 TAB TABLET GT SCH (09:00)
--- NOTE | 2020-07-18 14:59 | NUR ---
Resident is pleasant today although she complain of body ache.She was watching TV since this morning. No other issues.
--- NOTE | 2020-07-18 15:18 | NUR ---
Monthly progress notes. Resident is alert and oriented.She's awaake and engaged in activities of her choice.She watched tv most of the day. She always refuse to do any other activities. She requested her daughter to bring a mystery book with big print. She received daily visits for sensory stimulation, tv, music, hand massage,reality orientation. These activities will be provided as needed.
[2020-07-18] MEDS: LORAZEPAM 1 MG TABLET GT PRN (20:14)
[2020-07-18] MEDS: INSULIN GLARGINE, 100 UNIT/ML CARTRIDGE SQ SCH (21:05)
[2020-07-19] VITALS (8 sets, daily range): BP systolic 115–134; BP diastolic 64–82
[2020-07-19] MEDS: MORPHINE SULFATE IR 15 MG TABLET GT SCH ×4 (00:13→18:08)
[2020-07-19] MEDS: BLOOD SUGAR DIAGNOSTIC 1 EACH STRIP IN SCH ×4 (00:13→18:08)
[2020-07-19] MEDS: SUCRALFATE 1 G/10 ML UDC GT SCH ×4 (00:13→18:07)
[2020-07-19] MEDS: ALBUTEROL FS 2.5 MG/0.5 ML VIAL.NEB NEB SCH ×4 (00:31→19:30)
[2020-07-19] MEDS: IPRATROPIUM NEB FS 0.5 MG/2.5 ML AMPUL.NEB NEB SCH ×4 (00:31→19:30)
[2020-07-19] MEDS: HYDROCODONE/APAP 5/325MG TABLET GT PRN ×3 (04:12→22:01)
--- NOTE | 2020-07-19 04:13 | NUR ---
RT NOTE Resident alert, requested to be capped, trach capped and tolerating well. rn nochlas aware. no sob or s/s of respiratory distress noted. will continue to monitor t/o shift
[2020-07-19] MEDS: OMEPRAZOLE 20 MG CAPSULE.DR GT SCH (06:21)
[2020-07-19] MEDS: HYDROGEN PEROXIDE 480 ML BOTTLE TP SCH ×2 (09:00→21:18)
[2020-07-19] MEDS: POLYETHYLENE GLYCOL 3350 17 GM POWD.PACK GT SCH (09:44)
[2020-07-19] MEDS: PROSOURCE / PROSTAT (PYXIS) 30 ML UDC GT SCH ×3 (09:44→17:00)
[2020-07-19] MEDS: ACIDOPHILUS/BULGARICUS 1 EACH TAB.CHEW GT SCH ×2 (09:44→20:24)
[2020-07-19] MEDS: CREON GT SCH ×3 (09:44→17:00)
[2020-07-19] MEDS: SERTRALINE HCL 50 MG TABLET GT SCH (09:45)
[2020-07-19] MEDS: ASCORBIC ACID 500 MG TABLET GT SCH (09:45)
[2020-07-19] MEDS: MULTIVIT W/MINERALS 1 TAB TABLET GT SCH (09:45)
[2020-07-19] MEDS: ENOXAPARIN SODIUM 40 MG/0.4 ML DISP.SYRIN SQ SCH (09:49)
[2020-07-19] MEDS: VITAMINS A AND D 56.7 GM TUBE TP SCH ×2 (09:50→20:25)
[2020-07-19] MEDS: THERAHONEY GEL 1.5 OZ TUBE TP SCH ×2 (09:50→20:24)
[2020-07-19] MEDS: MAG HYDROX/AL HYDROX/SIMETH 30 ML UDC GT PRN (09:51)
[2020-07-19] MEDS: METOCLOPRAMIDE HCL 10 MG TABLET GT PRN (10:08)
[2020-07-19] MEDS: INSULIN REGULAR, HUMAN 100 UNIT/ML 3 ML VIAL SQ PRN ×2 (12:46→18:10)
--- NOTE | 2020-07-19 15:45 | NUR ---
Dr Gordon ordered to change Trazodone from q HS PRN to q HS. Pt told Dr Gordon during rounds today that she is unable to sleep at night. Restoril was recently changed to Trazodone. Dr Gordon said he will review pt's medications. Pt also told Dr Gordon that she has a stomachache. Dr Gordon examined pt. Pt had a recent bowel movement. Notified Dr Gordon that pt is taking Noble. She said she has been taking Noble for 13 years. Nurse administered Maalox.
--- NOTE | 2020-07-19 16:05 | NUR ---
RT Received pt on room air with trach cap. Patient awake and alert. Sp02 >95 throughout shift. Tolerated breathing treatments well. No SOB noted
[2020-07-19] MEDS ORDERED: TRAZODONE 50 MG TABLET GT SCH (21:00)
[2020-07-19] MEDS: INSULIN GLARGINE, 100 UNIT/ML CARTRIDGE SQ SCH (21:02)
[2020-07-20] VITALS (8 sets, daily range): BP systolic 100–122; BP diastolic 61–71
[2020-07-20] MEDS: SUCRALFATE 1 G/10 ML UDC GT SCH ×5 (00:25→23:41)
[2020-07-20] MEDS: BLOOD SUGAR DIAGNOSTIC 1 EACH STRIP IN SCH ×5 (00:26→23:41)
[2020-07-20] MEDS: MORPHINE SULFATE IR 15 MG TABLET GT SCH ×5 (00:26→23:41)
[2020-07-20] MEDS: IPRATROPIUM NEB FS 0.5 MG/2.5 ML AMPUL.NEB NEB SCH ×4 (01:30→20:02)
[2020-07-20] MEDS: ALBUTEROL FS 2.5 MG/0.5 ML VIAL.NEB NEB SCH ×4 (01:30→20:02)
[2020-07-20] MEDS: HYDROCODONE/APAP 5/325MG TABLET GT PRN ×2 (05:14→19:25)
[2020-07-20] MEDS: OMEPRAZOLE 20 MG CAPSULE.DR GT SCH (06:22)
[2020-07-20] MEDS: HYDROGEN PEROXIDE 480 ML BOTTLE TP SCH ×2 (08:27→20:51)
[2020-07-20] MEDS: THERAHONEY GEL 1.5 OZ TUBE TP SCH ×2 (09:00→21:09)
[2020-07-20] MEDS: VITAMINS A AND D 56.7 GM TUBE TP SCH ×2 (09:00→21:09)
[2020-07-20] MEDS: PROSOURCE / PROSTAT (PYXIS) 30 ML UDC GT SCH ×3 (09:13→17:22)
[2020-07-20] MEDS: SERTRALINE HCL 50 MG TABLET GT SCH (09:13)
[2020-07-20] MEDS: ACIDOPHILUS/BULGARICUS 1 EACH TAB.CHEW GT SCH ×2 (09:13→21:09)
[2020-07-20] MEDS: MULTIVIT W/MINERALS 1 TAB TABLET GT SCH (09:13)
[2020-07-20] MEDS: POLYETHYLENE GLYCOL 3350 17 GM POWD.PACK GT SCH (09:13)
[2020-07-20] MEDS: CREON GT SCH ×3 (09:13→17:22)
[2020-07-20] MEDS: ASCORBIC ACID 500 MG TABLET GT SCH (09:13)
[2020-07-20] MEDS: ENOXAPARIN SODIUM 40 MG/0.4 ML DISP.SYRIN SQ SCH (09:14)
[2020-07-20] MEDS: INSULIN REGULAR, HUMAN 100 UNIT/ML 3 ML VIAL SQ PRN ×3 (12:29→23:42)
--- NOTE | 2020-07-20 14:00 | NUR ---
Pt asking for Ambien since it is what she takes at home. She said Trazodone does not help her sleep. Asked her if there is any reason why she is unable to sleep at night, such as pain, noise level, room brightness/darkness, etc. 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 She said her doctor (prior to being admitted to the hospital) used to alternate Restoril and Ambien for her.
[2020-07-20] MEDS: LORAZEPAM 1 MG TABLET GT PRN ×2 (14:50→22:09)
--- NOTE | 2020-07-20 15:37 | NUR ---
Notified Dr Qureshi that pt said she is unable to sleep when taking Trazodone and she refuses to take it. Pt requesting Ambien. She said she used to take it at home. Dr Qureshi ordered Ambien 5 mg GT q HS.
--- NOTE | 2020-07-20 15:47 | NUR ---
Resident is pleasant today .She walked with the physical therapist and only complained about her sleeping pills.
--- NOTE | 2020-07-20 18:51 | NUR ---
Seen by CHRISTINA Adams. She ordered to do ABG on morning 07/22/20 when pt wakes up.
[2020-07-20] MEDS: INSULIN GLARGINE, 100 UNIT/ML CARTRIDGE SQ SCH (21:10)
[2020-07-20] MEDS: ZOLPIDEM TARTRATE 5 MG TABLET PO SCH (22:00)
[2020-07-21] VITALS (7 sets, daily range): BP systolic 101–118; BP diastolic 60–72
[2020-07-21] MEDS: ALBUTEROL FS 2.5 MG/0.5 ML VIAL.NEB NEB SCH ×4 (02:38→20:20)
[2020-07-21] MEDS: IPRATROPIUM NEB FS 0.5 MG/2.5 ML AMPUL.NEB NEB SCH ×4 (02:38→20:20)
[2020-07-21] MEDS: HYDROCODONE/APAP 5/325MG TABLET GT PRN ×3 (04:01→17:16)
[2020-07-21] MEDS: BLOOD SUGAR DIAGNOSTIC 1 EACH STRIP IN SCH ×4 (06:10→23:56)
[2020-07-21] MEDS: OMEPRAZOLE 20 MG CAPSULE.DR GT SCH (06:10)
[2020-07-21] MEDS: MORPHINE SULFATE IR 15 MG TABLET GT SCH ×4 (06:10→23:56)
[2020-07-21] MEDS: SUCRALFATE 1 G/10 ML UDC GT SCH ×4 (06:10→23:55)
[2020-07-21] MEDS: ACIDOPHILUS/BULGARICUS 1 EACH TAB.CHEW GT SCH ×2 (08:09→20:13)
[2020-07-21] MEDS: MULTIVIT W/MINERALS 1 TAB TABLET GT SCH (08:09)
[2020-07-21] MEDS: POLYETHYLENE GLYCOL 3350 17 GM POWD.PACK GT SCH (08:09)
[2020-07-21] MEDS: CREON GT SCH ×3 (08:09→17:16)
[2020-07-21] MEDS: SERTRALINE HCL 50 MG TABLET GT SCH (08:09)
[2020-07-21] MEDS: PROSOURCE / PROSTAT (PYXIS) 30 ML UDC GT SCH ×3 (08:09→17:16)
[2020-07-21] MEDS: ASCORBIC ACID 500 MG TABLET GT SCH (08:09)
[2020-07-21] MEDS: ENOXAPARIN SODIUM 40 MG/0.4 ML DISP.SYRIN SQ SCH (08:10)
[2020-07-21] MEDS: ACETAMINOPHEN 650 MG/20 ML UDC- SA PATIENTS-PAIN ONLY GT PRN (08:21)
[2020-07-21] MEDS: HYDROGEN PEROXIDE 480 ML BOTTLE TP SCH ×2 (08:37→20:20)
[2020-07-21] MEDS: THERAHONEY GEL 1.5 OZ TUBE TP SCH ×2 (09:40→20:13)
[2020-07-21] MEDS: VITAMINS A AND D 56.7 GM TUBE TP SCH ×2 (09:40→20:13)
--- NOTE | 2020-07-21 10:25 | NUR ---
Tele-Dermatology Apt.: AZEB called & spoke with Yara from [facility] [[facility], [place] [address] ] to set up Tele-dermatology apt. with Dr. Blake for 07/23/2020 at 10:15 am. AZEB spoke with pt.'s daughter regarding payment $163 for dermatology consult as location does not accept the pt.'s insurance. Adan is agreeable to pay out of pocket and stated she will call the location and provide payment information. AZEB will follow up as needed.
--- NOTE | 2020-07-21 13:22 | NUR ---
Conductor Sleeping Car spoke with resident and offered resident with activities resident informed activity staff that she is mo today. Spoke with resident briefly and resident was pleasant during the time of conversation. Activity department will continue to offer resident activities and encourage to participate.
[2020-07-21] MEDS: GLUCERNA 1.2 1,000 ML BOTTLE NG PRN (20:11)
[2020-07-21] MEDS: LORAZEPAM 1 MG TABLET GT PRN (20:12)
[2020-07-21] MEDS: INSULIN GLARGINE, 100 UNIT/ML CARTRIDGE SQ SCH (22:17)
[2020-07-21] MEDS: ZOLPIDEM TARTRATE 5 MG TABLET PO SCH (22:17)
[2020-07-21] MEDS: INSULIN REGULAR, HUMAN 100 UNIT/ML 3 ML VIAL SQ PRN (23:57)
[2020-07-22] VITALS (9 sets, daily range): BP systolic 107–130; BP diastolic 59–87
[2020-07-22] MEDS: HYDROCODONE/APAP 5/325MG TABLET GT PRN ×3 (01:50→16:31)
[2020-07-22] MEDS: IPRATROPIUM NEB FS 0.5 MG/2.5 ML AMPUL.NEB NEB SCH ×4 (02:20→19:07)
[2020-07-22] MEDS: ALBUTEROL FS 2.5 MG/0.5 ML VIAL.NEB NEB SCH ×4 (02:20→19:07)
[2020-07-22] MEDS: MORPHINE SULFATE IR 15 MG TABLET GT SCH ×4 (06:15→23:39)
[2020-07-22] MEDS: SUCRALFATE 1 G/10 ML UDC GT SCH ×4 (06:15→23:39)
[2020-07-22] MEDS: OMEPRAZOLE 20 MG CAPSULE.DR GT SCH (06:15)
[2020-07-22] MEDS: BLOOD SUGAR DIAGNOSTIC 1 EACH STRIP IN SCH ×4 (06:15→23:40)
[2020-07-22] MEDS: INSULIN REGULAR, HUMAN 100 UNIT/ML 3 ML VIAL SQ PRN ×4 (06:16→23:41)
[2020-07-22] MEDS: HYDROGEN PEROXIDE 480 ML BOTTLE TP SCH ×2 (08:34→21:00)
[2020-07-22] MEDS: ENOXAPARIN SODIUM 40 MG/0.4 ML DISP.SYRIN SQ SCH (09:00)
--- NOTE | 2020-07-22 09:40 | NUR ---
Patient was sleeping since shift started. Pt woke up around 9:30AM and asked if she could have [place] PRN for generalized pain. PRN [place] given. Pt used commode upon waking up with minimal assistance from staff. Proper aletha-care rendered. Needs met and attended.
[2020-07-22] MEDS: SERTRALINE HCL 50 MG TABLET GT SCH (09:41)
[2020-07-22] MEDS: VITAMINS A AND D 56.7 GM TUBE TP SCH ×2 (09:41→21:43)
[2020-07-22] MEDS: MULTIVIT W/MINERALS 1 TAB TABLET GT SCH (09:41)
[2020-07-22] MEDS: ACIDOPHILUS/BULGARICUS 1 EACH TAB.CHEW GT SCH ×2 (09:41→21:43)
[2020-07-22] MEDS: PROSOURCE / PROSTAT (PYXIS) 30 ML UDC GT SCH ×3 (09:41→17:36)
[2020-07-22] MEDS: ASCORBIC ACID 500 MG TABLET GT SCH (09:41)
[2020-07-22] MEDS: POLYETHYLENE GLYCOL 3350 17 GM POWD.PACK GT SCH (09:41)
[2020-07-22] MEDS: THERAHONEY GEL 1.5 OZ TUBE TP SCH ×2 (09:41→21:43)
[2020-07-22] MEDS: CREON GT SCH ×3 (09:41→17:36)
--- NOTE | 2020-07-22 10:33 | NUR ---
Informed RELAY SHOP SUPERVISOR Rebecca Adams that ABG has not been drawn yet since pt refused the RT assigned to her to draw her blood. She is requesting for a more experienced RT to draw it only once and the more experienced RT is not available to do it until noon. Pt also refused physical therapy. She told the PT that she still needs to have blood drawn and to come back later.
--- NOTE | 2020-07-22 11:03 | NUR ---
SS Note: AZEB emailed the patient's medication List to [email or web address] for the dermatology apt. on 07/23/2020.AZEB notified pt. of apt. and pt. was agreeable.
--- NOTE | 2020-07-22 11:20 | NUR ---
WOMEN'S APPAREL SALESPERSON came to patient early AM to do exercises but pt was asleep. WOMEN'S APPAREL SALESPERSON came back when pt awake but pt refused to walk/ exercise and requested for WOMEN'S APPAREL SALESPERSON to come back in PM. WOMEN'S APPAREL SALESPERSON unable to reschedule for today d/t conflict in schedule. Pt was encouraged but pt refused and stated that RT will do ABG on her and did not want to do any exercise with WOMEN'S APPAREL SALESPERSON until ABG done. Activity personnel also went to see pt, was encouraged to go out in the activity room but pt responded that she's "not in the mood to socialize" and preferred to stay in her room.
--- NOTE | 2020-07-22 13:07 | NUR ---
Resident is awake, had a short conversation stating that she's depressed.Was offered to go to the activity room that might help her to lessen her depression, unfortunately, she refused again.she doesn't want any activities to be done in her bedroom.She was given a book by her friend and she will try to focus on the book.
[2020-07-22 13:27] LABS: ABG BASE EXCESS 3.6 mmol/L; ABG OXYGEN SATURATION 92.5 % (92.0-98.5); ABG PH 7.458 (7.350-7.450); ABG PO2 64.5 mmHg (75.0-100.0); AaDO2 37.3 mmHg; COHb 0.5 % (0.5-1.5); MetHb 0.2 % (0.0-1.5); O2Hb 91.9 % (94.0-97.0); SITE, ABG Left Radial; VENT MODE, BG 21% with capped trach
--- NOTE | 2020-07-22 13:40 | NUR ---
Relayed ABG result to CHRISTINA Adams. Addendum: 07/22/20 at 1556 by HARSH JONES RN CHRISTINA Adams asked for pt's O2 sat since pO2 64.5. Pt's O2 sat 96-100%. No new order.
--- NOTE | 2020-07-22 18:13 | NUR ---
Pt said she is unable to sleep well at night because the staff come in and out of the room to take care of her roommate. She said last night the staff cleaned her roommate around 930pm and she appreciated it. Will inform night charge nurse to coordinate timing of care for pt and her roommate to allow pt to sleep better at night. She said she was able to sleep from 4 to 9 am today. She said Ambien 5 mg does nothing for her. Pt has previously received Restoril and Trazodone, she complained that those medications are not working for her as well.
[2020-07-22] MEDS: GLUCERNA 1.2 1,000 ML BOTTLE NG PRN (19:00)
[2020-07-22] MEDS: LORAZEPAM 1 MG TABLET GT PRN (19:40)
[2020-07-22] MEDS: ZOLPIDEM TARTRATE 5 MG TABLET PO SCH (21:44)
[2020-07-22] MEDS: INSULIN GLARGINE, 100 UNIT/ML CARTRIDGE SQ SCH (21:51)
--- NOTE | 2020-07-22 23:10 | NUR ---
RT NOTE Received pt on room air with trach cap. Patient awake and alert. Sp02 >93 throughout shift. Tolerated breathing treatments well. No SOB noted
[2020-07-23] VITALS (7 sets, daily range): BP systolic 113–137; BP diastolic 65–82
[2020-07-23] MEDS: ALBUTEROL FS 2.5 MG/0.5 ML VIAL.NEB NEB SCH ×4 (01:12→19:52)
[2020-07-23] MEDS: IPRATROPIUM NEB FS 0.5 MG/2.5 ML AMPUL.NEB NEB SCH ×4 (01:12→19:52)
[2020-07-23] MEDS: HYDROCODONE/APAP 5/325MG TABLET GT PRN ×3 (04:00→20:35)
[2020-07-23] MEDS: MORPHINE SULFATE IR 15 MG TABLET GT SCH ×3 (05:57→18:01)
[2020-07-23] MEDS: INSULIN REGULAR, HUMAN 100 UNIT/ML 3 ML VIAL SQ PRN ×3 (05:57→18:02)
[2020-07-23] MEDS: OMEPRAZOLE 20 MG CAPSULE.DR GT SCH (05:57)
[2020-07-23] MEDS: BLOOD SUGAR DIAGNOSTIC 1 EACH STRIP IN SCH ×3 (05:57→18:01)
[2020-07-23] MEDS: SUCRALFATE 1 G/10 ML UDC GT SCH ×3 (05:57→18:00)
[2020-07-23] MEDS: HYDROGEN PEROXIDE 480 ML BOTTLE TP SCH ×2 (08:13→21:27)
[2020-07-23] MEDS: ACIDOPHILUS/BULGARICUS 1 EACH TAB.CHEW GT SCH ×2 (08:51→20:34)
[2020-07-23] MEDS: PROSOURCE / PROSTAT (PYXIS) 30 ML UDC GT SCH ×3 (08:51→16:49)
[2020-07-23] MEDS: ASCORBIC ACID 500 MG TABLET GT SCH (08:51)
[2020-07-23] MEDS: MULTIVIT W/MINERALS 1 TAB TABLET GT SCH (08:51)
[2020-07-23] MEDS: CREON GT SCH ×3 (08:51→16:49)
[2020-07-23] MEDS: SERTRALINE HCL 50 MG TABLET GT SCH (08:51)
[2020-07-23] MEDS: POLYETHYLENE GLYCOL 3350 17 GM POWD.PACK GT SCH (08:51)
[2020-07-23] MEDS: ENOXAPARIN SODIUM 40 MG/0.4 ML DISP.SYRIN SQ SCH ×2 (08:52→09:00)
[2020-07-23] MEDS: VITAMINS A AND D 56.7 GM TUBE TP SCH ×2 (09:00→20:34)
[2020-07-23] MEDS: THERAHONEY GEL 1.5 OZ TUBE TP SCH ×2 (09:00→20:34)
--- NOTE | 2020-07-23 11:20 | NUR ---
Telemedicine with Dr. Blake, chief nursing executive done. According to Dr. Blake, it is difficult to assess and have a definitive diagnosis by looking at the skin via Facetime. She recommends to have a shaved biopsy to be done by surgical team. And as for the redness in the R wrist and R inner thigh she recommends to moistened the area with Aquaphor. Patient and resident agreed that she will follow-up with her upon discharge.
--- NOTE | 2020-07-23 15:00 | NUR ---
INTERDISCIPLINARY PLAN OF CARE CONFERENCE took place today. The patients Daughter, Adan Andrew [phone] did not participate via phone conference. Dr. Gordon and Interdisciplinary team discussed the plan of care in detail. IDT discussed discharge planning as pt. s insurance requested to downgrade pt. to lower level of care. SW will follow up with D/C Planning as needed. Current orders as well as treatments and medications were reviewed. See other disciplines IDT notes for further details.
--- NOTE | 2020-07-23 15:06 | NUR ---
D/C Planning: SW informed patient that D/C planning has commenced as pt.'s insurance has notified [facility] today 07/23/2020 that as of 07/27/2020 the pt. will no longer qualify for skilled care and is to be downgraded to a lower level of care. Pt. expressed understanding. SW called & spoke to the pt.'s daughter, Adan Andrew [phone] to discuss initial discharge plan. SW notified family that SW will make referrals to facilities depending on if pt. is discharging with Trach & g-tube. Adan expressed understanding and is agreeable. Per Adan, she will discuss with family to see if anyone can accommodate living situation for the pt. AZEB will follow up on 07/26/2020 with making referrals and updating family regarding status of g-tube and trach.
--- NOTE | 2020-07-23 15:58 | NUR ---
Resident was awake this morning watching tv. Refused to open blinds that affect her. She requested for a cup of coffee onl no breakfast.She walked with the therapist this morning,She's quite pleasant today.
--- NOTE | 2020-07-23 16:00 | NUR ---
As discussed in the IDT meeting, Dr. Gordon in agreement with dermatology recommendation to have shaved biopsy by surgical team. Left a message to Dr. Milo Ordonez's group regarding recommendation. He also ordered trach capping round the clock as tolerated, hold GT feeding and start calorie count x 3 days. Lovenox discontinued as patient is now ambulatory, medications can be given by mouth per patient's request and with order for discharge planning. Resident informed about the plan.
[2020-07-23] MEDS: MINERAL OIL/PETROL OINT 396 GM JAR TP SCH (20:34)
--- NOTE | 2020-07-23 20:37 | NUR ---
RT PATIENT WAS RECEIVED ON TRACH CAP WITH ROOM AIR, SPO2 98% . PATIENT AWAKE , ALERT AND STABLE AT THIS TIME. WILL CONTINUE TO MONITOR THROUGHOUT THE SHIFT. Addendum: 07/23/20 at 2039 by JOSE MAE RT Amended: Links added.
[2020-07-23] MEDS: LORAZEPAM 1 MG TABLET GT PRN (22:11)
[2020-07-23] MEDS: ZOLPIDEM TARTRATE 5 MG TABLET PO SCH (22:20)
[2020-07-23] MEDS: INSULIN GLARGINE, 100 UNIT/ML CARTRIDGE SQ SCH (22:31)
[2020-07-24] VITALS (8 sets, daily range): BP systolic 113–135; BP diastolic 65–85
[2020-07-24] MEDS: BLOOD SUGAR DIAGNOSTIC 1 EACH STRIP IN SCH ×5 (00:33→23:44)
[2020-07-24] MEDS: MORPHINE SULFATE IR 15 MG TABLET GT SCH ×5 (00:33→23:44)
[2020-07-24] MEDS: SUCRALFATE 1 G/10 ML UDC GT SCH ×5 (00:33→23:44)
[2020-07-24] MEDS: INSULIN REGULAR, HUMAN 100 UNIT/ML 3 ML VIAL SQ PRN ×5 (00:35→23:45)
[2020-07-24] MEDS: ALBUTEROL FS 2.5 MG/0.5 ML VIAL.NEB NEB SCH ×4 (01:30→19:30)
[2020-07-24] MEDS: IPRATROPIUM NEB FS 0.5 MG/2.5 ML AMPUL.NEB NEB SCH ×4 (01:30→19:30)
--- NOTE | 2020-07-24 03:20 | NUR ---
Patient told nurse she's sweaty and shaky.BS checked right away with results of 47mg/dl orange juice given via gt and patient given pudding. Patient is awake and alert ,no distress.Will continue to monitor.
--- NOTE | 2020-07-24 03:45 | NUR ---
Patient BS 114mg/dl ,she said feeling better and want to go back to sleep. Will continue to monitor.
[2020-07-24] MEDS: OMEPRAZOLE 20 MG CAPSULE.DR GT SCH (06:12)
--- NOTE | 2020-07-24 06:17 | NUR ---
RT PATIENT TRACH CAP IS OFF AT THIS TIME WITH 2L NASAL CANNULA. CHARGE NURSE AWARE. PATIENT ASLEEP AND STABLE ,WILL CONTINUE TO MONITOR. Addendum: 07/24/20 at 0623 by JOSE MAE RT Amended: Links added.
[2020-07-24] MEDS: ACIDOPHILUS/BULGARICUS 1 EACH TAB.CHEW GT SCH ×2 (08:03→20:46)
[2020-07-24] MEDS: POLYETHYLENE GLYCOL 3350 17 GM POWD.PACK GT SCH (08:03)
[2020-07-24] MEDS: CREON GT SCH ×3 (08:06→17:55)
[2020-07-24] MEDS: PROSOURCE / PROSTAT (PYXIS) 30 ML UDC GT SCH ×3 (08:06→17:55)
[2020-07-24] MEDS: MULTIVIT W/MINERALS 1 TAB TABLET GT SCH (08:06)
[2020-07-24] MEDS: ASCORBIC ACID 500 MG TABLET GT SCH (08:06)
[2020-07-24] MEDS: MINERAL OIL/PETROL OINT 396 GM JAR TP SCH ×2 (08:06→20:46)
[2020-07-24] MEDS: SERTRALINE HCL 50 MG TABLET GT SCH (08:06)
[2020-07-24] MEDS: HYDROCODONE/APAP 5/325MG TABLET GT PRN ×2 (08:20→18:00)
[2020-07-24] MEDS: HYDROGEN PEROXIDE 480 ML BOTTLE TP SCH ×2 (08:21→21:51)
[2020-07-24] MEDS: VITAMINS A AND D 56.7 GM TUBE TP SCH ×2 (08:21→20:46)
[2020-07-24] MEDS: ONDANSETRON 4 MG TAB.RAPDIS GT PRN (08:29)
[2020-07-24] MEDS: THERAHONEY GEL 1.5 OZ TUBE TP SCH ×2 (09:00→20:46)
--- NOTE | 2020-07-24 12:00 | NUR ---
Seen and examined by Dr. Qureshi. Informed MD of the discharge plan as discussed in IDT meeting yesterday with Dr. Gordon. According to Dr. Qureshi, he would like to see that her GT is removed prior to discharge with order for GI consult. Endorsed to follow-up on Sunday. Dr. Qureshi also notified of hypoglycemic episode this AM. According to MD he will review blood sugar readings, diabetic medications make adjustment if necessary to prevent future episode of hypoglycemia. Patient also verbalized with Dr. Qureshi she wants to go home with a blood sugar monitoring device that without finger pricks. Endorsed to have SSD or machine adjuster leader case trim to check if device is covered under patient's insurance.
--- NOTE | 2020-07-24 12:30 | NUR ---
BS 313, patient ate late breakfast then ate lunch at 1155. CN (Epifanio) notified. Insulin per sliding scale given as order. no s/s of hyperglycemia noted.
--- NOTE | 2020-07-24 14:52 | NUR ---
Resident is very nice today. We had a short conversation and everything was nice . No complain so far. Encourage her to participate in activities but refused.
[2020-07-24] MEDS: LORAZEPAM 1 MG TABLET GT PRN (16:10)
--- NOTE | 2020-07-24 20:46 | NUR ---
RT PATIENT WAS RECEIVED ON TRACH CAP WITH ROOM AIR. PATIENT AWAKE, ALERT AND STABLE AT THIS TIME ,SPO2 95%. WILL CONTINUE TO MONITOR THROUGHOUT THE SHIFT. Addendum: 07/24/20 at 2048 by JOSE MAE RT Amended: Links added.
[2020-07-24] MEDS: ZOLPIDEM TARTRATE 5 MG TABLET GT SCH (22:06)
[2020-07-24] MEDS: INSULIN GLARGINE, 100 UNIT/ML CARTRIDGE SQ SCH (22:09)
[2020-07-25] VITALS (9 sets, daily range): BP systolic 109–143; BP diastolic 63–78
[2020-07-25] MEDS: IPRATROPIUM NEB FS 0.5 MG/2.5 ML AMPUL.NEB NEB SCH ×4 (01:30→19:30)
[2020-07-25] MEDS: ALBUTEROL FS 2.5 MG/0.5 ML VIAL.NEB NEB SCH ×4 (01:30→19:30)
[2020-07-25] MEDS: HYDROCODONE/APAP 5/325MG TABLET GT PRN ×3 (01:51→20:33)
--- NOTE | 2020-07-25 02:13 | NUR ---
Patient verbalized discomfort and hypoglycemia. Hydrocodone 5-325mg given via gt as ordered. BS : 29mg/dl. Provided snack and orange juice. Patient awake and dennies shortness of breath. Will monitor.
--- NOTE | 2020-07-25 02:43 | NUR ---
Patient sleeping with no sign of distress or discomfort noted. Trach cap remain in place and secured. Bs: 83 mg/dl.Will monitor for the s/s hypo / hyperglycemia.
[2020-07-25] MEDS: SUCRALFATE 1 G/10 ML UDC GT SCH ×4 (05:00→23:43)
[2020-07-25] MEDS: OMEPRAZOLE 20 MG CAPSULE.DR GT SCH (05:00)
[2020-07-25] MEDS: MORPHINE SULFATE IR 15 MG TABLET GT SCH ×5 (05:12→23:43)
[2020-07-25] MEDS: BLOOD SUGAR DIAGNOSTIC 1 EACH STRIP IN SCH ×4 (05:12→23:43)
[2020-07-25] MEDS: INSULIN REGULAR, HUMAN 100 UNIT/ML 3 ML VIAL SQ PRN ×3 (05:12→23:44)
--- NOTE | 2020-07-25 07:03 | NUR ---
patient tolerated trach cap the whole night. no s/s of distress.
[2020-07-25] MEDS: CREON GT SCH ×3 (08:15→17:05)
[2020-07-25] MEDS: PROSOURCE / PROSTAT (PYXIS) 30 ML UDC GT SCH ×3 (08:15→17:05)
[2020-07-25] MEDS: MINERAL OIL/PETROL OINT 396 GM JAR TP SCH ×2 (08:15→20:33)
[2020-07-25] MEDS: THERAHONEY GEL 1.5 OZ TUBE TP SCH ×2 (08:15→20:33)
[2020-07-25] MEDS: ACIDOPHILUS/BULGARICUS 1 EACH TAB.CHEW GT SCH ×2 (08:15→20:33)
[2020-07-25] MEDS: MULTIVIT W/MINERALS 1 TAB TABLET GT SCH (08:15)
[2020-07-25] MEDS: ASCORBIC ACID 500 MG TABLET GT SCH (08:15)
[2020-07-25] MEDS: POLYETHYLENE GLYCOL 3350 17 GM POWD.PACK GT SCH (08:15)
[2020-07-25] MEDS: SERTRALINE HCL 50 MG TABLET GT SCH (08:15)
[2020-07-25] MEDS: VITAMINS A AND D 56.7 GM TUBE TP SCH ×2 (08:16→20:33)
[2020-07-25] MEDS: METOCLOPRAMIDE HCL 10 MG TABLET GT PRN (08:44)
[2020-07-25] MEDS: HYDROGEN PEROXIDE 480 ML BOTTLE TP SCH ×2 (09:16→21:11)
--- NOTE | 2020-07-25 14:40 | NUR ---
Visited and greeted resident today. Resident responded with a pleasant voice. Activity staff offered resident if she wants to participate in any activities. Resident said she is mo for now and will let activity department if she needs anything. Activity staff will continue to monitor and encourage resident to participate in activity programs .
--- NOTE | 2020-07-25 15:43 | NUR ---
Resident was visited by SAEID Arrieta, resident asked for bedtime snack. SAEID also recommends to have her A1C checked, Dr. Qureshi informed and agreed to her recommendation.
--- NOTE | 2020-07-25 18:14 | NUR ---
Pt with trach capped all day, tolerated well. No respiratory distress noted.
[2020-07-25] MEDS: INSULIN GLARGINE, 100 UNIT/ML CARTRIDGE SQ SCH (21:19)
[2020-07-25] MEDS: ZOLPIDEM TARTRATE 5 MG TABLET GT SCH (21:19)
[2020-07-26] VITALS (7 sets, daily range): BP systolic 116–135; BP diastolic 68–76
[2020-07-26] MEDS: IPRATROPIUM NEB FS 0.5 MG/2.5 ML AMPUL.NEB NEB SCH ×4 (01:30→19:30)
[2020-07-26] MEDS: ALBUTEROL FS 2.5 MG/0.5 ML VIAL.NEB NEB SCH ×4 (01:30→19:30)
--- NOTE | 2020-07-26 02:30 | NUR ---
RN NOTES Pt complained of feeling hungry wanting something sweet. Pt requested to have blood sugar checked, stated she believed her blood sugar may be on the low side. BS checked and result was 45. [place] juice given. Will monitor blood sugar.
[2020-07-26] MEDS: LORAZEPAM 1 MG TABLET GT PRN ×2 (02:41→16:20)
--- NOTE | 2020-07-26 03:30 | NUR ---
RN NOTES Rechecked blood sugar, result 145. Will endorse to following shift.
--- NOTE | 2020-07-26 05:43 | NUR ---
RT PATIENT TOLERATED TRACH CAP WITH ROOM AIR THROUGHOUT THE SHIFT, NO RESPIRATORY DISTRESS NOTED. WILL CONTINUE TO MONITOR. Addendum: 07/26/20 at 0545 by JOSE MAE RT Amended: Links added.
[2020-07-26] MEDS: OMEPRAZOLE 20 MG CAPSULE.DR GT SCH (06:21)
[2020-07-26] MEDS: MORPHINE SULFATE IR 15 MG TABLET GT SCH ×4 (06:21→23:54)
[2020-07-26] MEDS: BLOOD SUGAR DIAGNOSTIC 1 EACH STRIP IN SCH ×4 (06:21→23:54)
[2020-07-26] MEDS: SUCRALFATE 1 G/10 ML UDC GT SCH ×4 (06:21→23:54)
[2020-07-26] MEDS: HYDROCODONE/APAP 5/325MG TABLET GT PRN ×2 (07:52→15:22)
[2020-07-26] MEDS: HYDROGEN PEROXIDE 480 ML BOTTLE TP SCH ×2 (08:08→20:04)
[2020-07-26] MEDS: ACIDOPHILUS/BULGARICUS 1 EACH TAB.CHEW GT SCH ×2 (09:00→21:05)
[2020-07-26] MEDS: PROSOURCE / PROSTAT (PYXIS) 30 ML UDC GT SCH ×3 (09:00→17:00)
[2020-07-26] MEDS: ASCORBIC ACID 500 MG TABLET GT SCH (09:00)
[2020-07-26] MEDS: MINERAL OIL/PETROL OINT 396 GM JAR TP SCH ×2 (09:00→21:05)
[2020-07-26] MEDS: VITAMINS A AND D 56.7 GM TUBE TP SCH ×2 (09:00→21:05)
[2020-07-26] MEDS: SERTRALINE HCL 50 MG TABLET GT SCH (09:00)
[2020-07-26] MEDS: CREON GT SCH ×3 (09:00→17:00)
[2020-07-26] MEDS: THERAHONEY GEL 1.5 OZ TUBE TP SCH ×2 (09:00→21:05)
[2020-07-26] MEDS: MULTIVIT W/MINERALS 1 TAB TABLET GT SCH (09:00)
[2020-07-26] MEDS: POLYETHYLENE GLYCOL 3350 17 GM POWD.PACK GT SCH (09:00)
--- NOTE | 2020-07-26 09:00 | NUR ---
Left message for Dr Benedict to see pt for G-tube removal.
--- NOTE | 2020-07-26 09:20 | NUR ---
Seen by Dr Gordon. Pt has been trach capped since 07/23/[address] Gordon ordered to decannulate pt today. Informed RT Jamshid. Dr Gordon answered pt's concerns about decannulation.
--- NOTE | 2020-07-26 09:28 | NUR ---
RT Patient decannulated at this time per MD orders. Stoma care done post decannulation. Patient awake and alert on RA. RN Marley aware. Will continue to monitor throughout shift
--- NOTE | 2020-07-26 10:00 | NUR ---
Relayed HgbA1C 6.[address] Qureshi. Notified him that pt's blood sugar was 46 at 230am today. Also relayed recent blood sugar levels to him. Dr Qureshi ordered to decrease Insulin Lantus from 20 to 10 units SC q HS and give snacks to pt at bedtime. Notified pt.
--- NOTE | 2020-07-26 11:41 | NUR ---
D/C Planning: [facility]B was notified that pt. was decannulated and is to have G-Tube removed. A[facility]B updated pt.'s daughter, Adan P. [phone] and Adan stated she would prefer for pt. to be discharged to a facility. AZEB provided Adan with contact center representative, Subha [phone] who can assist family with placing pt. in a B&C or Independent Living facility. Adan is agreeable and stated she will get in touch with Subha. Per Adan, pt. to be discharged to family as last resort, if appropriate facility is not found. Adan stated pt. will need DME for shower transfer, bed-side commode, etc. Per Adan, pt. is still eligible for IHSS until August. Noted. AZEB will continue to collaborate with IDT and family to ensure a safe & proper discharge plan.
[2020-07-26] MEDS: INSULIN REGULAR, HUMAN 100 UNIT/ML 3 ML VIAL SQ PRN ×2 (12:40→23:55)
--- NOTE | 2020-07-26 13:07 | NUR ---
Called pt's daughter Adan. Informed her that pt was decannulated and pt is tolerating well. Also informed her that Lantus insulin was decreased from 20 to 10 units SC q HS due to episodes of low blood sugar.
--- NOTE | 2020-07-26 16:03 | NUR ---
Activity staff visited resident today and resident was pleasant to talk with. Offered resident activity programs and resident said that she is mo with activities programs today. [employer] Consultant also assisted resident with her menu for July 27, 2020. Resident was thankful for the assistance. Activity staff will continue to monitor and encourage resident to participate in activities.
--- NOTE | 2020-07-26 16:09 | NUR ---
SS Note: [facility] faxed clinicals [facility] FAX: [phone] tel: [phone] for possible placement. AZEB will follow up as needed.
--- NOTE | 2020-07-26 16:14 | NUR ---
SS note: Per [employer] ( request on 08/02/2020)AZEB called the pt.'s insurance risk manager, Brenda to update her regarding pt.'s tele-dermatology apt. on 07/23/2020. However, no answer and SW left voicemail with call back number. Charge nurse also informed this SW that pt. is requesting for "Glucose machine that does not prick the finger" upon discharge. SW also left Brenda message to see if insurance will cover this expense. SW will follow up as needed.
--- NOTE | 2020-07-26 16:20 | NUR ---
SS Note: SW called and left voicemail for Subha [phone] who is assisting family with placing pt. in a B&C or Independent Living facility. SW will follow up regarding status.
--- NOTE | 2020-07-26 17:45 | NUR ---
Dr Benedict said he will see pt for GT removal. Informed pt.
--- NOTE | 2020-07-26 18:22 | NUR ---
Pt's blood sugar was 56. Pt ate dinner and blood sugar improved to 134.
[2020-07-26] MEDS: ZOLPIDEM TARTRATE 5 MG TABLET GT SCH (21:58)
[2020-07-26] MEDS ORDERED: INSULIN GLARGINE, 100 UNIT/ML CARTRIDGE SQ SCH (22:00)
[2020-07-27] VITALS (7 sets, daily range): BP systolic 116–129; BP diastolic 70–80
[2020-07-27] MEDS: ALBUTEROL FS 2.5 MG/0.5 ML VIAL.NEB NEB SCH ×4 (01:30→20:48)
[2020-07-27] MEDS: IPRATROPIUM NEB FS 0.5 MG/2.5 ML AMPUL.NEB NEB SCH ×4 (01:30→20:48)
[2020-07-27] MEDS: SUCRALFATE 1 G/10 ML UDC GT SCH ×3 (05:58→17:04)
[2020-07-27] MEDS: MORPHINE SULFATE IR 15 MG TABLET GT SCH ×3 (05:59→17:04)
[2020-07-27] MEDS: BLOOD SUGAR DIAGNOSTIC 1 EACH STRIP IN SCH ×3 (05:59→17:04)
[2020-07-27] MEDS: OMEPRAZOLE 20 MG CAPSULE.DR GT SCH (05:59)
[2020-07-27] MEDS: HYDROCODONE/APAP 5/325MG TABLET GT PRN ×3 (07:34→20:22)
[2020-07-27] MEDS: HYDROGEN PEROXIDE 480 ML BOTTLE TP SCH ×2 (08:14→20:48)
[2020-07-27] MEDS: ACIDOPHILUS/BULGARICUS 1 EACH TAB.CHEW GT SCH ×2 (08:41→21:50)
[2020-07-27] MEDS: SERTRALINE HCL 50 MG TABLET GT SCH (08:42)
[2020-07-27] MEDS: PROSOURCE / PROSTAT (PYXIS) 30 ML UDC GT SCH ×3 (08:42→17:04)
[2020-07-27] MEDS: MINERAL OIL/PETROL OINT 396 GM JAR TP SCH ×2 (08:42→21:50)
[2020-07-27] MEDS: POLYETHYLENE GLYCOL 3350 17 GM POWD.PACK GT SCH (08:42)
[2020-07-27] MEDS: MULTIVIT W/MINERALS 1 TAB TABLET GT SCH (08:42)
[2020-07-27] MEDS: CREON GT SCH ×3 (08:42→17:04)
[2020-07-27] MEDS: VITAMINS A AND D 56.7 GM TUBE TP SCH ×2 (08:42→21:50)
[2020-07-27] MEDS: THERAHONEY GEL 1.5 OZ TUBE TP SCH ×2 (08:42→21:50)
[2020-07-27] MEDS: ASCORBIC ACID 500 MG TABLET GT SCH (08:42)
--- NOTE | 2020-07-27 09:10 | NUR ---
Seen by CHRISTINA Adams via Zoom meeting. Pt informed her that she still had an episode of hypoglycemia last night and asked CHRISTINA Adams if she can get the Lantus insulin every morning. CHRISTINA Adams answered all her questions and explained Lantus insulin to her. Relayed recent blood sugar levels to CHRISTINA Adams. She ordered to decrease Lantus insulin from 10 to 8 units SC q HS. CHRISTINA Adams said to start tonight.
[2020-07-27] MEDS: LORAZEPAM 1 MG TABLET GT PRN ×2 (09:41→18:03)
--- NOTE | 2020-07-27 10:32 | NUR ---
D/C planning: A[facility]B followed up and called the pt.s daughter, Adan Andrew [phone] to determine if she had found B&C or independent living facility through Subha [phone]. Per Adan, she will look into a couple of recommendations made by Subha. However, Per Adan, the pt. will most likely go live with pt.s other daughter, Geovanna Zhao [[id number] [address]]. Adan stated that the pt.'s previous IHSS services are still available. Per Adan, she will call and have them re-start service when pt. is discharged to home. AZEB notified Adan that pt. currently pending G-Tube removal for discharge. Adan expressed understanding. AZEB called & left voicemail to [facility] insurance specialist, Brenda [phone] in an attempt to arrange DME for pt.s D/C to home. AZEB will follow up as needed.
[2020-07-27] MEDS: INSULIN REGULAR, HUMAN 100 UNIT/ML 3 ML VIAL SQ PRN (11:53)
--- NOTE | 2020-07-27 12:59 | NUR ---
Dr Benedict removed pt's PEG and instructed her not to eat for [address] Qureshi. Asked him if he wanted to order any IV hydration for the pt. Also informed Dr Qureshi that MACHINE TESTER Rebecca Adams ordered to decrease Lantus insulin from 10 to 8 units SC q HS. Addendum: 07/27/20 at 1723 by HARSH JONES RN Per Dr Benedict, pt NPO except medications for 24 hours
--- NOTE | 2020-07-27 13:53 | NUR ---
Resident is pleasant today. Had short conversation with her.She requested for 2 anxiety attack, morning and afternoon.
--- NOTE | 2020-07-27 14:44 | NUR ---
Dr Qureshi ordered to give D5NS at 80 mL/hr IV x 24 hours for hydration.
[2020-07-27] MEDS: IV D5/ 0.9% NACL 1,000 ML IV SCH (15:47)
[2020-07-27] MEDS: INSULIN GLARGINE, 100 UNIT/ML CARTRIDGE SQ SCH (22:20)
[2020-07-27] MEDS: ZOLPIDEM TARTRATE 5 MG TABLET GT SCH (22:20)
[2020-07-28] VITALS (8 sets, daily range): BP systolic 108–144; BP diastolic 64–83
[2020-07-28] MEDS: SUCRALFATE 1 G/10 ML UDC GT SCH ×4 (00:02→17:00)
[2020-07-28] MEDS: MORPHINE SULFATE IR 15 MG TABLET GT SCH ×4 (00:03→17:01)
[2020-07-28] MEDS: BLOOD SUGAR DIAGNOSTIC 1 EACH STRIP IN SCH ×4 (00:07→17:00)
[2020-07-28] MEDS: INSULIN REGULAR, HUMAN 100 UNIT/ML 3 ML VIAL SQ PRN ×4 (00:09→17:18)
[2020-07-28] MEDS: IPRATROPIUM NEB FS 0.5 MG/2.5 ML AMPUL.NEB NEB SCH ×4 (02:31→19:30)
[2020-07-28] MEDS: ALBUTEROL FS 2.5 MG/0.5 ML VIAL.NEB NEB SCH ×4 (02:32→19:30)
[2020-07-28] MEDS: HYDROCODONE/APAP 5/325MG TABLET GT PRN ×3 (03:12→17:00)
[2020-07-28] MEDS: IV D5/ 0.9% NACL 1,000 ML IV SCH (04:00)
[2020-07-28] MEDS: OMEPRAZOLE 20 MG CAPSULE.DR GT SCH (06:01)
[2020-07-28] MEDS: METOCLOPRAMIDE HCL 10 MG TABLET GT PRN (07:51)
[2020-07-28] MEDS: HYDROGEN PEROXIDE 480 ML BOTTLE TP SCH ×2 (08:29→21:00)
[2020-07-28] MEDS: PROSOURCE / PROSTAT (PYXIS) 30 ML UDC GT SCH ×3 (08:59→16:59)
[2020-07-28] MEDS: ASCORBIC ACID 500 MG TABLET GT SCH (08:59)
[2020-07-28] MEDS: MULTIVIT W/MINERALS 1 TAB TABLET GT SCH (08:59)
[2020-07-28] MEDS: SERTRALINE HCL 50 MG TABLET GT SCH (08:59)
[2020-07-28] MEDS: ACIDOPHILUS/BULGARICUS 1 EACH TAB.CHEW GT SCH ×2 (08:59→20:09)
[2020-07-28] MEDS: POLYETHYLENE GLYCOL 3350 17 GM POWD.PACK GT SCH (08:59)
[2020-07-28] MEDS: MINERAL OIL/PETROL OINT 396 GM JAR TP SCH ×2 (08:59→20:22)
[2020-07-28] MEDS: CREON GT SCH ×3 (08:59→16:59)
[2020-07-28] MEDS: THERAHONEY GEL 1.5 OZ TUBE TP SCH ×2 (08:59→20:22)
[2020-07-28] MEDS: VITAMINS A AND D 56.7 GM TUBE TP SCH ×2 (08:59→20:22)
--- NOTE | 2020-07-28 12:30 | NUR ---
Notified Dr. Qureshi that patientt is for discharge home tomorrow. Covid-19 test to be done as required by home health agency Currently on IVF, NPO except for medication. Patient is a bit anxious about her discharge, she said that she does not want her daughter see her GT bleeding. Explained the process to resident. She verbalized she has not seen her doctor since after her trach and GT has been removed. Informed Dr. Qureshi of her concern and need for prescription.
--- NOTE | 2020-07-28 14:19 | NUR ---
Resident is again pleasant . She had a short conversation regarding her exit tomorrow, She's looking forward to move to another place.
--- NOTE | 2020-07-28 16:00 | NUR ---
To relieve patient's anxiety explained the procedure how to change dressing of GT and trach stoma. After a brief explanation, resident able to show return demonstration of changing stoma dressing and what to look for, such as bleeding, leaking or s/s of infection. At this time no signs of bleeding noted from both stoma, stoma site closed. Dressing re applied by patient.
--- NOTE | 2020-07-28 16:22 | NUR ---
D/C Planning: -AZEB notified pt.s daughter, Adan Andrew [phone] that pt.s Diabetes Management post discharge should be handled by PCP through [facility]. Adan expressed understanding and stated she will follow up with the insurance. Pt. will be discharged to her daughter, Geovanna Andujar s home [phone] [[id number] [id number]]. Adan agreeable to scrap picker the pt. on 07/29/2020 after 1 pm. -Adan stated she called SS to reinstate benefits for pt. and she was told she should hear back within one week -AZEB faxed MD orders for Home Health: wound nurse, medication management DME: bedside commode, shower transfer bench along with facesheet, H&P, medications list & most recent COVID-19 negative test results to [facility] ATTN: Brenda TEL:[phone] FAX: [phone]. -AZEB faxed prior authorization for Home Health and no prick Glucose Meter per pt.s request to [facility]: [phone]. -AZEB notified charge nurse that a more recent COVID-19 test for home health & IHSS purposes is required. -Adan will inform AZEB of preferred pharmacy for prescription to be faxed to.
[2020-07-28] MEDS: LORAZEPAM 1 MG TABLET GT PRN (20:10)
[2020-07-28] MEDS: ZOLPIDEM TARTRATE 5 MG TABLET GT SCH (22:14)
[2020-07-28] MEDS: INSULIN GLARGINE, 100 UNIT/ML CARTRIDGE SQ SCH (22:16)
[2020-07-29] VITALS (7 sets, daily range): BP systolic 100–144; BP diastolic 55–88
[2020-07-29] MEDS: SUCRALFATE 1 G/10 ML UDC GT SCH ×5 (00:17→23:33)
[2020-07-29] MEDS: MORPHINE SULFATE IR 15 MG TABLET GT SCH ×5 (00:18→23:34)
[2020-07-29] MEDS: BLOOD SUGAR DIAGNOSTIC 1 EACH STRIP IN SCH ×5 (00:18→23:34)
[2020-07-29] MEDS: INSULIN REGULAR, HUMAN 100 UNIT/ML 3 ML VIAL SQ PRN ×5 (00:20→23:36)
[2020-07-29] MEDS: IPRATROPIUM NEB FS 0.5 MG/2.5 ML AMPUL.NEB NEB SCH ×4 (01:30→19:30)
[2020-07-29] MEDS: ALBUTEROL FS 2.5 MG/0.5 ML VIAL.NEB NEB SCH ×4 (01:30→19:30)
[2020-07-29] MEDS: HYDROCODONE/APAP 5/325MG TABLET GT PRN ×3 (02:29→16:02)
[2020-07-29] MEDS: OMEPRAZOLE 20 MG CAPSULE.DR GT SCH (06:05)
[2020-07-29] MEDS: HYDROGEN PEROXIDE 480 ML BOTTLE TP SCH ×2 (08:39→21:12)
[2020-07-29] MEDS: POLYETHYLENE GLYCOL 3350 17 GM POWD.PACK GT SCH ×2 (09:00→09:22)
[2020-07-29] MEDS: METOCLOPRAMIDE HCL 10 MG TABLET GT PRN (09:21)
[2020-07-29] MEDS: ASCORBIC ACID 500 MG TABLET GT SCH (09:22)
[2020-07-29] MEDS: ACIDOPHILUS/BULGARICUS 1 EACH TAB.CHEW GT SCH ×2 (09:22→20:09)
[2020-07-29] MEDS: SERTRALINE HCL 50 MG TABLET GT SCH (09:22)
[2020-07-29] MEDS: PROSOURCE / PROSTAT (PYXIS) 30 ML UDC GT SCH ×3 (09:22→17:00)
[2020-07-29] MEDS: MULTIVIT W/MINERALS 1 TAB TABLET GT SCH (09:22)
[2020-07-29] MEDS: MINERAL OIL/PETROL OINT 396 GM JAR TP SCH ×2 (09:22→20:09)
[2020-07-29] MEDS: CREON GT SCH ×3 (09:22→17:07)
[2020-07-29] MEDS: THERAHONEY GEL 1.5 OZ TUBE TP SCH ×2 (10:30→20:09)
[2020-07-29] MEDS: VITAMINS A AND D 56.7 GM TUBE TP SCH ×2 (10:30→20:09)
--- NOTE | 2020-07-29 10:30 | NUR ---
Pt was seen by Dr Qureshi. He answered pt's questions and concerns at bedside. He instructed pt to take Lantus insulin in the morning instead of at bedtime to avoid hypoglycemic episodes at night. He also wrote prescriptions for pt.
--- NOTE | 2020-07-29 11:20 | NUR ---
D/C plan 07/30/2020: AZEB notified by [facility] case operator, Brenda [phone] that specific D/C order for wound care is needed. AZEB faxed updated wound care D/C order at 9:30 am. Per Brenda, she does not know what time the home health will confirm and approve wound care discharge orders. Per Brenda, it Is a safer plan to D/C patient on 07/30/2020. AZEB called and updated pt.'s daughter, Adan Mooney who expressed understanding and is agreeable. AZEB notified charge nurse, Marley. AZEB also requested for pt. to continue receiving education regarding administration of Diabetes medication
--- NOTE | 2020-07-29 11:45 | NUR ---
According to AZEB Shell, she spoke with pt's insurance and discharge will be moved to tomorrow. Pt's insurance still arranging home health for pt. Notified pt.
[2020-07-29] MEDS ORDERED: SILVER NITRATE APPLICATOR 1 EA BOX TP ONE (14:00)
--- NOTE | 2020-07-29 14:20 | NUR ---
Patient is sleeping at this time
--- NOTE | 2020-07-29 18:54 | NUR ---
Pt education done on self administering insulin. Per pt, she will have insulin pen at home d/t pt unable to draw insulin from vial d/t hand tremors. Jese corresponding insulin for pt prior to lunch and dinner. Pt cleansed abdominal area (injection site) with alcohol pad and administered insulin subcutaneously. Pt able to self administer insulin. Reminded patient about universal precautions, proper disposal of needles and to rotate injection sites. Pt verbalized understanding.
--- NOTE | 2020-07-29 19:58 | NUR ---
Visited resident and asked how she is doing. Resident replied with a very pleasant tone, and said she is very happy that she is going home.
[2020-07-29] MEDS: LORAZEPAM 1 MG TABLET GT PRN (20:06)
[2020-07-29] MEDS: ZOLPIDEM TARTRATE 5 MG TABLET GT SCH (22:13)
[2020-07-30 01:00] VITALS: BP 121/64
[2020-07-30 01:26] VITALS: BP 121/64
[2020-07-30] MEDS: IPRATROPIUM NEB FS 0.5 MG/2.5 ML AMPUL.NEB NEB SCH ×3 (01:30→13:30)
[2020-07-30] MEDS: ALBUTEROL FS 2.5 MG/0.5 ML VIAL.NEB NEB SCH ×3 (01:30→13:30)
[2020-07-30] MEDS: HYDROCODONE/APAP 5/325MG TABLET GT PRN ×2 (02:38→08:05)
[2020-07-30] MEDS: MORPHINE SULFATE IR 15 MG TABLET GT SCH ×2 (05:26→12:21)
[2020-07-30] MEDS: SUCRALFATE 1 G/10 ML UDC GT SCH ×2 (05:26→12:20)
[2020-07-30] MEDS: OMEPRAZOLE 20 MG CAPSULE.DR GT SCH (05:32)
[2020-07-30] MEDS: INSULIN REGULAR, HUMAN 100 UNIT/ML 3 ML VIAL SQ PRN ×2 (05:32→12:22)
[2020-07-30] MEDS: BLOOD SUGAR DIAGNOSTIC 1 EACH STRIP IN SCH ×2 (05:32→12:21)
[2020-07-30 06:30] VITALS: BP 135/86
[2020-07-30 07:53] VITALS: BP 136/86
[2020-07-30] MEDS: ACIDOPHILUS/BULGARICUS 1 EACH TAB.CHEW GT SCH (08:05)
[2020-07-30] MEDS: CREON GT SCH ×2 (08:05→12:21)
[2020-07-30] MEDS: POLYETHYLENE GLYCOL 3350 17 GM POWD.PACK GT SCH ×2 (08:05→08:20)
[2020-07-30] MEDS: PROSOURCE / PROSTAT (PYXIS) 30 ML UDC GT SCH ×3 (08:05→12:21)
[2020-07-30] MEDS: MINERAL OIL/PETROL OINT 396 GM JAR TP SCH (08:06)
[2020-07-30] MEDS: ASCORBIC ACID 500 MG TABLET GT SCH (08:06)
[2020-07-30] MEDS: SERTRALINE HCL 50 MG TABLET GT SCH (08:06)
[2020-07-30] MEDS: MULTIVIT W/MINERALS 1 TAB TABLET GT SCH (08:06)
[2020-07-30] MEDS: HYDROGEN PEROXIDE 480 ML BOTTLE TP SCH (08:11)
[2020-07-30] MEDS: METOCLOPRAMIDE HCL 10 MG TABLET GT PRN (08:49)
[2020-07-30] MEDS ORDERED: INSULIN GLARGINE, 100 UNIT/ML CARTRIDGE SQ SCH (09:00)
[2020-07-30] MEDS: THERAHONEY GEL 1.5 OZ TUBE TP SCH (09:00)
[2020-07-30] MEDS: VITAMINS A AND D 56.7 GM TUBE TP SCH (09:00)
--- NOTE | 2020-07-30 11:49 | NUR ---
Resident preparing for discharge to home, had a shower in the shower room. Resident demonstrated changing trach and GT stoma dressing on her own, no signs of bleeding or infection in the site. Both stoma shows tissue healing. Resident verbalized feeling confident doing trach and GT dressing changes on her own, however she will need assistance with sacral wound due to its location. Sacral wound with no s/s of infection, size decreased to 0.5x 0.7 x0.5 cm. Wound supplies such as gauze, tape, NS, Mepilex, Calcium alginate and Therahoney provided to resided to take home. Explain wound dressing order with resident. Patient is receptive to teaching including s/s of hypoglycemia/hyperglycemia and intervention. Awaiting for her daughter to pick her up at about 1330 today.
[2020-07-30 12:30] VITALS: BP 133/88
--- NOTE | 2020-07-30 13:39 | NUR ---
Resident discharge to home, wheeled via wheelchair to the [facility], picked up by resident's daughter Adan in a private car. Resident stable ambulatory no complain of pain, all due medications given. Explained to patient that prescription was faxed to [facility] pharmacy but staff (Jacky) said they do not have Morphine 7.5 mg. and if they will order it will be available on Sunday next week. According to patient it is OK because she still have enough dose to last until Sunday. All belongings taken by resident. All paper works explained to resident's daughter Adan including home health information, prescription, discharge information, physicians orders, list of medication including Covid-19 vaccination card. VS 98.5, 97, 15, 132/88, 99%
--- NOTE | 2020-07-30 13:49 | NUR ---
Discharge Note: Patient was discharged 07/30/2020 at 1:45 pm to Daughter, Adan Andrew [phone] who is also [facility] caregiver and picked up patient from [facility] to provide transportation to [[address] [facility] [address]] where pt. is to reside with daughterGeovanna TEL: [phone]. Pt. provided with On License Of [facility] [[address] [facility]. RAFAEL [address] [facility] [address] ] and RNGlen to see pt. at home on 07/31/2020 for initial evaluation, wound care & medication management. Pt. to receive Bedside Commode & Shower Transfer Bench by [employer] [[address] [facility] [address] ]. Per Adan, patient has walker at home. Follow up apt. with PCP: Phan Vaughan TEL: [phone] [address] [facility] [address] on 08/11/2020 3PM. Patents medication prescription was faxed to [facility] [ [address] [facility] [address]; TEL:[phone]]. Pt. was provided with prescription for [place], Morphine, Ativan & Ambien as per pharmacy, pt. to do a walk-in on 08/03/2020 and the previously mention meds to be available. Per pt., she has these medications at home to use in the meantime. Daughter, Adan and patient were explianed this information by [facility] NurseEpifanio. Pt. & family expressed understanding. provided pt. with the following resources: Mental Health Resources: [facility] [address], [place] [address] (Specializes in in-depth psychotherapy for emotional distress: anxiety, depression, interpersonal conflicts, life transitions, childhood abuse) [facility] [address] [place] [address] (Assist with solving problem marital difficulties, separation & divorce, aging parents, & grief, chronic & terminal illness) [facility] [address] [place] [address] (Deal with loss & grief, anxiety, marital difficulties) Homebound/Mental Health Services [address] [facility] [facility], [address] [place], [place] [address] (Provide in-home mental services to people who are incapable of leaving their homes) Organization for Needs of the Elderly Senior Service[facility] [address] [place] [address] Partial Hospitalization Program and Outpatient at [facility] [address] [place], [place] [id number] [facility] [address] [place], [place] [address] PSYCHIATRIC OUTPATIENT SERVICES [facility] Partial Hospitalization and Intensive Outpatient Program (Managed Care and [place] Only)[address] [facility]. [facility] [phone] [facility] Partial Hospitalization and Outpatient [id number] [facility] [place], [place] [phone] [facility] Partial Hospitalization and Outpatient [id number] [place], [place] [phone] [facility] [id number] [place], [place] [phone] [facility] Partial Hospitalization and Outpatient [id number] [place], [phone] ABUSE PREVENTION: ELDER ABUSE HOTLINE (11/12) ADULT PROTECTIVE SERVICES HOTLINE LONG-TERM CARE [facility] Region AREA ON AGING (HOTLINE) ADULT DAY HEALTH CARE CARE CENTERS: Private pay or Medi-roxane funded adult day care [facility] Day [facility] Care [facility]3] , [facility] , [facility] , [facility] Adult Day Health Care , [facility] Adult Day Health Care , [facility] Adult [facility] , [place] [facility] , [facility] , [facility] HEALTH ASSOCIATIONS: AARP www.aarp.org ALS Association (ask for Tata) www.als.org Vincentian Diabetes Association www.diabetes.org Vincentian Heart Association www.heart.org Vincentian Lung Association www.lungusa.org Vincentian Parkinson Disease Association www.apdaparkinson.org Vincentian [place] , www.redcross.org Arthritis Foundation www.arthritis.org Crohns & Colitis Foundation of Vincentian www.ccfa.org/chapters/hao National Multiple Sclerosis Society www.nationalmssociety.org Myasthenia Gravis Foundation www.myasthenia-ca.org National Stroke Association www.stroke.org CONSERVATORSHIP & GUARDIANSHIP: AAR Carlene Gómez Legal Services Center for Health Care Rights Eldercare Information and Referral Oil Pumper [facility]: [facility] Bar Referral Service [facility] Legal Services Office of the Public Guardian [place] GRIEF AND BEREAVEMENT RESOURCES: The [facility] Place , [facility] THE [facility] , [facility] , [place] HELP AT HOME CAREGIVER SUPPORT: In Home Support Services (Must have Medi-Roxane to be eligible) *Ask for a list of agencies that provide services to assist with care in the home. Local Senior Centers also have listings of care providers. HOME SAFETY MODIFICATIONS AND EQUIPMENT: Senior centers have additional referrals. [place] MarketLive and [employer] Investment Dept. Handyworker Program (low income) or Visit http://hcidla.Basic-Fit.org/fpf-haxqui-gz for more information National Seating and Mobility and/or ; Forever Active www.foreverIceotopemed.Shotfarm Stay Home Safe www.Stayhomesafe.com LIFE ALERT RESPONSE SYSTEM: SustainU Lifeline Services [phone] www. LifeSquareTrade.Shotfarm Life Alert [phone] www.lifeAuctomaticrt.Shotfarm Life Station [phone] www.Tetra Discoveryation.Shotfarm Safe Return 266-323-0627 www.alz.or/safereturn Cell Phones for Seniors www.ALDEA Pharmaceuticals.Shotfarm MEALS AND FOOD PROGRAMS: [place] Meals on Wheels [phone] [place] Meals on Wheels [phone] [facility] [phone] [place] to the Homebound [phone] [place] to the Homebound [phone] AliceSt. Clement to the Homebound [phone] [facility] to the Homebound [phone] Allen Hugo [phone] [facility] [phone] ONE Generation [phone] [facility] [phone] [facility] [phone] Meals on Wheels [phone] For all ages: $6.85/ meal w side. Delivered M-F from 10 am-1pm. Application and payment is done over the phone. Frozen meals available for weekends. Emergency Food [facility] [phone] Pentecostalism Cardiology Clinical Nurse Specialist [phone] [facility] [phone] [facility] [place]- Brown bag lunches [phone] [facility] [phone] MEAL/GROCERY DELIVERY PROGRAMS: [facility] Gourmet Meals [phone]- [facility] [phone]- [facility] Magic Kitchen [phone] Moms Meals [phone] (ask Dial for Discount Select grocery stores may provide delivery. MEDICAL INSURANCE SUPPORT SERVICES: Center for Health Care Rights [phone] Health Insurance Counseling/Advocacy Programs (HICAP)-Must have Medicare. Offers counseling for Medi-Roxane eligibility [phone] Department of Public Cardiology Clinical Nurse Specialist [phone] www.acadia healthcare.ca.gov Medicare [phone] www.socialsecurity.org Social Security [phone] SENIOR ACTIVITY PROGRAMS: *Contact a local senior center, adult school, recreation facility or community college for education, fitness, recreation, and social programs. Aquatic Therapy and Adapted Exercise programs through [facility] [phone] Encore at [facility] [phone] www.valleycare medical center/encore U- Senior Friends [phone] [place] Senior Programs [phone] www.oasisnet.org Suddenly 65 www.ccritkdr76.com SENIOR CENTERS: [facility] [phone] [facility] [phone] [facility] [phone] [facility] [phone] [facility] [phone] [facility] [phone] [facility] [phone] [facility] [phone] Paul GenerationJagdeep [facility] [phone] [facility] [phone] [facility] [phone] [facility] [phone] [facility] [phone] TRANSPORTATION: Local [facility] Centers may have applications for transportation programs and additional resources. ACCESS Services [phone] Transportation for seniors and disabled persons 7 days a week requiring 254 hr. advance reservation. Must apply and register for program nicolasa eligible. Mercury Continuity [phone] or [phone] Transportation for seniors and persons with ADA card/metro disabled card in the [facility]. M-F only. Must register for services. ONE GENERATION [phone] Serves 65 years + in conjunction with Invisible Puppy program. Must be registered with both programs. A to B Transport [phone] Provides wheelchair/gurney van service. Adult Medical Transport [phone] Accepts Medi-roxane with prior authorization. Care Van [phone] Provides wheelchair Transport. [facility] Wide Transportation [phone] Provides gurney service [facility] [phone] Gurney Transport. [facility] Transportation [phone] wheelchair & gurney transport [facility] Transportation [phone] wheelchair & gurney transport [place] Non-Emergency Transport [phone] wheelchair & gurney transport [facility] Living [place] [phone] Short Term Transportation primarily for adults with disabilities on social security income. Nominal fee may apply and a reservation is required. [facility] Cab [phone] or [phone] Gameyeeeah [phone] [place] [address] Services [phone] For additional programs & services
[2020-07-30 13:56] VITALS: BP 139/79
== END 2020-07-30 13:40 | disposition home health service (06) | DRG 951 ==
LOC: SA 21:52
PROVIDERS: ADMIT Internal Medicine; ATTEND Internal Medicine
PROC: 5A1935Z Respiratory Ventilation, Less than 24 Consecutive Hours (ICD-10-PCS; principal; 2020-05-27)
PROC: 0KBP0ZZ Excision of Left Hip Muscle, Open Approach (ICD-10-PCS; 2020-06-07)
PROC: 0KBN0ZZ Excision of Right Hip Muscle, Open Approach (ICD-10-PCS; 2020-06-07)
PROC: 0KBP0ZZ Excision of Left Hip Muscle, Open Approach (ICD-10-PCS; 2020-06-24)
PROC: 0KBN0ZZ Excision of Right Hip Muscle, Open Approach (ICD-10-PCS; 2020-06-24)
PROC: 0KBP0ZZ Excision of Left Hip Muscle, Open Approach (ICD-10-PCS; 2020-06-25)
PROC: 0KBN0ZZ Excision of Right Hip Muscle, Open Approach (ICD-10-PCS; 2020-06-25)
PROC: 0KBP0ZZ Excision of Left Hip Muscle, Open Approach (ICD-10-PCS; 2020-07-01)
PROC: 0KBN0ZZ Excision of Right Hip Muscle, Open Approach (ICD-10-PCS; 2020-07-01)
PROC: 0KBP0ZZ Excision of Left Hip Muscle, Open Approach (ICD-10-PCS; 2020-07-09)
PROC: 0KBN0ZZ Excision of Right Hip Muscle, Open Approach (ICD-10-PCS; 2020-07-09)
PROC: 0KBP0ZZ Excision of Left Hip Muscle, Open Approach (ICD-10-PCS; 2020-07-15)
PROC: 0KBN0ZZ Excision of Right Hip Muscle, Open Approach (ICD-10-PCS; 2020-07-15)
PROC: 0KBP0ZZ Excision of Left Hip Muscle, Open Approach (ICD-10-PCS; 2020-07-29)
PROC: 0KBN0ZZ Excision of Right Hip Muscle, Open Approach (ICD-10-PCS; 2020-07-29)
DX: J96.21 Acute and chronic respiratory failure with hypoxia (principal); J96.22 Acute and chronic respiratory failure with hypercapnia; D63.8 Anemia in other chronic diseases classified elsewhere; G93.41 Metabolic encephalopathy; K21.9 Gastro-esophageal reflux disease without esophagitis; Z20.822 Contact with and (suspected) exposure to COVID-19; E78.5 Hyperlipidemia, unspecified; E11.649 Type 2 diabetes mellitus with hypoglycemia without coma; E87.6 Hypokalemia; J96.01 Acute respiratory failure with hypoxia; I10 Essential (primary) hypertension; N39.0 Urinary tract infection, site not specified; E83.42 Hypomagnesemia; F32.9 Major depressive disorder, single episode, unspecified; R45.851 Suicidal ideations; G89.4 Chronic pain syndrome; G92 Toxic encephalopathy; Z86.59 Personal history of other mental and behavioral disorders; F17.200 Nicotine dependence, unspecified, uncomplicated; R13.10 Dysphagia, unspecified; Z93.0 Tracheostomy status; Z93.1 Gastrostomy status; D69.6 Thrombocytopenia, unspecified; G47.00 Insomnia, unspecified; K76.6 Portal hypertension; Z79.899 Other long term (current) drug therapy; Z79.4 Long term (current) use of insulin; R56.9 Unspecified convulsions; Z81.8 Family history of other mental and behavioral disorders; G93.6 Cerebral edema; F25.9 Schizoaffective disorder, unspecified; A41.9 Sepsis, unspecified organism; N17.0 Acute kidney failure with tubular necrosis; L89.154 Pressure ulcer of sacral region, stage 4; B49 Unspecified mycosis; Z87.19 Personal history of other diseases of the digestive system; R55 Syncope and collapse
CPT/HCPCS: 31720; 36415; 36600; 71045-TC; 74018; 80048-TC; 81001; 82803-TC; 82962-TC; 83690-TC; 86580-TC; 87081-TC; 87086-TC; 92507-TC; 92521; 92526; 94003-TC; 94640-TC; 94664-TC; 94760-TC; 94761-TC; 94762-TC; 94799-TC; 97110-TC; 97112-TC; 97116-TC; 97530-TC; 97535-TC; A4623; A6248; A6253; A7526; J1650; J1815; J3490; J8597; L8501; Q0162; U0003

== ENCOUNTER 2020-06-23 15:58 | Outpatient (CLI) | payer OTHER ==
[~2020-06-23 15:58] MED LIST changes: -Insulin Glargine,Hum SQ; -OXYC1TAB12 PO; -PANT40TA49 PO; -REPA0.5T6 PO
== END 2020-06-23 23:59 | disposition home or self-care (01) ==
LOC: CT 15:58
PROVIDERS: ATTEND Internal Medicine
DX: T79.7XXA Traumatic subcutaneous emphysema, initial encounter (principal); K44.9 Diaphragmatic hernia without obstruction or gangrene; R16.1 Splenomegaly, not elsewhere classified; N13.30 Unspecified hydronephrosis; K42.9 Umbilical hernia without obstruction or gangrene; Z90.49 Acquired absence of other specified parts of digestive tract; Z93.1 Gastrostomy status; X58.XXXA Exposure to other specified factors, initial encounter; Y93.89 Activity, other specified; Y92.89 Other specified places as the place of occurrence of the external cause; Y99.8 Other external cause status

== ENCOUNTER 2021-08-12 20:56 | Inpatient (IN) | payer MEDICARE, OTHER ==
[~2021-08-12] VITALS: Ht 157.5 cm; Wt 51.3 kg
--- NOTE | 2021-08-12 21:20 | NUR ---
PATIENT BIBRA 39 FROM SNF C/O HYPERGLYCEMIA BS 467. CONVEYOR SYSTEM OPERATOR ADMINISTERERED HUMOLOG 10U. PATIENT TAKEN TO ER BED 06. LABORED BREATHING NOTED. PATIENT CONNECTED TO CARDIAC AND POX MONITORS.
--- NOTE | 2021-08-12 21:28 | NUR ---
RT AT PT'S BEDSIDE
[2021-08-12] MEDS ORDERED: IV NS 0.9% 1,000 ML IV ONE (21:30)
[2021-08-12] MEDS ORDERED: ONDANSETRON HCL/PF 4 MG/2 ML VIAL IVP ONE (21:30)
[2021-08-12] MEDS ORDERED: IV NS 0.9% 1,000 ML BAG IV ONE (21:30)
--- NOTE | 2021-08-12 21:39 | NUR ---
COVID SWAB COLLECTED AND SENT TO LAB
[2021-08-12 21:44] LABS: ABG BASE EXCESS -29.5 mmol/L; ABG PCO2 15.5 mmHg (35.0-45.0); ABG PH 6.867 (7.350-7.450); ABG PO2 202.1 mmHg (75.0-100.0); COHb 0.3 % (0.5-1.5); MetHb 0.5 % (0.0-1.5); O2Hb 97.9 % (94.0-97.0); SITE, ABG Right Radial; VENT MODE, BG 5 LNC
--- NOTE | 2021-08-12 22:05 | NUR ---
BLOOD WORK SENT TO LAB
--- NOTE | 2021-08-12 22:06 | NUR ---
Salome siegel in [facility] - 08/12/21 at 2239 by SHANNON COVID SWAB COLLECTED AND SENT TO LAB
[2021-08-12] MEDS ORDERED: ONDANSETRON HCL/PF 4 MG/2 ML VIAL ONE (22:19)
[2021-08-12 22:38] LABS: EOSINOPHILS % (AUTO) 0.1 % (0.0-6.0); HEMATOCRIT 42 % (33-45); LYMPHOCYTES # (AUTO) 0.6 K/uL (0.8-4.8); MEAN CORPUSCULAR HGB CONC 29 g/dl (31.0-36.0); MONOCYTES # (AUTO) 1.8 K/uL (0.1-1.30)
[2021-08-12] MEDS ORDERED: CEFTRIAXONE 1GM BAG (ER ONLY) 50 ML IV ONE (23:30)
[2021-08-12 23:37] LABS: BILIRUBIN,URINE NEGATIVE (NEGATIVE); COLOR,URINE YELLOW (YELLOW); LEUKOCYTE ESTERASE ,URINE SMALL (NEGATIVE); NITRITE, URINE POSITIVE (NEGATIVE); PH,URINE 5.5 (5.0-8.0); PROTEIN,URINE 30 mg/dl (NEGATIVE); UGLUCOSE NEGATIVE (NEGATIVE); UROBILINOGEN,URINE 0.2 EU/dL (0.2)
--- NOTE | 2021-08-12 23:45 | NUR ---
FOLLOWED UP ONCE AGAIN WITH LAB REGARDING CHEMISTRY RESULT
[2021-08-12 23:57] LABS: RBC,URINE 0-2 /HPF (0-2)
[2021-08-12 23:58] LABS: BACTERIA,URINE Few /HPF (None Seen)
[2021-08-12 23:59] LABS: YEAST,URINE Few /HPF (None Seen)
[2021-08-13] VITALS (32 sets, daily range): BP systolic 99–137; BP diastolic 57–90
--- NOTE | 2021-08-13 00:30 | NUR ---
CALLED ONCE AGAIN BUT STILL NO RESULT
[2021-08-13 00:41] LABS: BASOPHILS # (AUTO) 0.1 K/uL (0.0-0.2); BASOPHILS % (AUTO) 0.4 % (0.0-2.0); HEMOGLOBIN 12.1 g/dL (11.5-14.8); LYMPHOCYTES % (AUTO) 3.6 % (20.0-44.0); MEAN CORPUSCULAR VOLUME 93 fL (82-100); MONOCYTES % (AUTO) 10.2 % (2.0-12.0); NEUTROPHILS # (AUTO) 14.8 K/uL (1.8-8.9); NEUTROPHILS % (AUTO) 85.7 % (43.0-81.0); PLATELET COUNT (AUTO) 392 K/uL (150-450); RED BLOOD CELL COUNT(AUTO) 4.51 MIL/uL (4.0-5.2); WHITE BLOOD COUNT (AUTO) 17.3 K/uL (4.3-11.0)
--- NOTE | 2021-08-13 02:02 | NUR ---
RN BATON TWIRLER NOTIFIED THAT LAB RESULT STILL PENDING.
--- NOTE | 2021-08-13 02:34 | NUR ---
SPOKE WITH LEIGHA JOSHI TO INFORM THAT POTASSIUM RESULT NOT IN YET. INSULIN NOT STARTED AT THIS TIME D/T NO POTASSIUM RESULT. LEIGHA ORDERED TO START INSULIN DRIP EVEN WITH CHEMESTRY RESULT
[2021-08-13] MEDS ORDERED: INSULIN REGULAR, HUMAN 100 UNIT/ML 10 ML VIAL ONE (02:35)
--- NOTE | 2021-08-13 02:59 | NUR ---
REPORT GIVEN TO SUPRIYA MADISON FOR CHANA
--- NOTE | 2021-08-13 03:24 | NUR ---
UNABLE TO START 2ND IV LINE DESPITE MULTIPLE ATTEMTPS. PT IS HARD STICK.
[2021-08-13] MEDS: IV NS 0.9% 1,000 ML IV PRN ×2 (04:00→09:54)
[2021-08-13] MEDS: INSULIN REGULAR, HUMAN 100 UNIT in IV NS 0.9% 99 ML IV PRN ×2 (04:00)
--- NOTE | 2021-08-13 04:16 | NUR ---
PATIENT TRANSFERRED UNDER ACLS.
[2021-08-13 04:43] LABS: ABG BASE EXCESS -20.1 mmol/L; ABG OXYGEN SATURATION 98.7 % (92.0-98.5); ABG PCO2 23.7 mmHg (35.0-45.0); ABG PH 7.122 (7.350-7.450); ABG PO2 165.3 mmHg (75.0-100.0); AaDO2 6.4 mmHg; COHb 0.2 % (0.5-1.5); MetHb 0.3 % (0.0-1.5); O2Hb 98.2 % (94.0-97.0); SITE, ABG Left Brachial; VENT MODE, BG Nasal Cannula
--- NOTE | 2021-08-13 04:43 | NUR ---
ABG DONE, RN NOTIFIED.
[2021-08-13] MEDS ORDERED: BLOOD SUGAR DIAGNOSTIC 1 EACH STRIP IN SCH (05:00)
[2021-08-13] MEDS: BLOOD SUGAR DIAGNOSTIC 1 EACH STRIP IN SCH ×18 (05:39→23:02)
[2021-08-13] MEDS ORDERED: SODIUM BICARBONATE SYR 50 MEQ/50 ML DISP.SYRIN IV ONE (06:30)
[2021-08-13] MEDS ORDERED: ERGO500040 PO (07:35)
[2021-08-13] MEDS ORDERED: ZOLP5TAB2 PO (07:35)
[2021-08-13] MEDS ORDERED: LISI20TA30 PO (07:35)
[2021-08-13] MEDS ORDERED: VENL150C2 PO (07:35)
[2021-08-13] MEDS ORDERED: MORP15TA7 PO (07:35)
[2021-08-13] MEDS ORDERED: PANT40TA49 PO (07:35)
[2021-08-13] MEDS ORDERED: SUCR1TAB31 PO (07:35)
[2021-08-13] MEDS ORDERED: LOPE2TAB25 PO (07:35)
[2021-08-13] MEDS ORDERED: ZINC220T4 PO (07:35)
[2021-08-13] MEDS ORDERED: INSU100V7 SQ (07:35)
[2021-08-13] MEDS ORDERED: FAMO20TA8 PO (07:35)
[2021-08-13] MEDS ORDERED: INSU100C10 SQ (07:35)
[2021-08-13] MEDS ORDERED: PSYL3.4P6 PO (07:35)
[2021-08-13] MEDS ORDERED: HYDR-3980 PO (07:35)
--- NOTE | 2021-08-13 08:00 | NUR ---
rn notes received patient in the bed resting, room air no acute respiratory distress, uh585cg/dl titrated insulin drip 4.9u/hr. patient alert and confused same time,total care. patient npo, assist turn and reposition q 2 hr, will follow up.
--- NOTE | 2021-08-13 09:00 | NUR ---
rn notes patient bs-212 mg/dl titrated insulin drip 3.18u, patient get inserted midline on DEMETRIUS intact. seen hospitalist Dr Zacarias, and get TO order diabetic diet 60g, order taken and carried out.
[2021-08-13 10:40] LABS: CALCIUM, SERUM 9.4 mg/dL (8.5-10.1)
[2021-08-13 11:15] LABS: CALCIUM, SERUM 8.9 mg/dL (8.5-10.1); POTASSIUM 3.7 mmol/L (3.5-5.1)
--- NOTE | 2021-08-13 11:46 | NUR ---
RN NOTES NOTIFIED LAB RESULTS CHEM -[address] HOSPITALIST Dr BUTLER , AND GET NEW ORDER CONTINUE INSULIN DRIP FOR , DKA PROTOCOL, CHANGE NS TO THE D51/2 NS @125ML/HR, ORDER TAKEN AND CARRIED OUT.
[2021-08-13] MEDS: IV D5/0.45 NACL 1,000 ML IV PRN ×2 (12:00→19:55)
--- NOTE | 2021-08-13 13:12 | NUR ---
RN NOTES GET CONSENT SIGN WITH TO WITH PATIENT'S POWER 0F ATTORNEYNAME LEISA IGLESIAS FOR CT OF ABDOMEN, AND PELVIC. CO SIGN CO WORKER [facility] EPPS. Addendum: 08/13/21 at 1348 by ADRIA OLIVEIRA RN ABOVE NOTED 1312 IS WRONG ENTERS.
[2021-08-13 15:55] LABS: CALCIUM, SERUM 8.8 mg/dL (8.5-10.1); CREATININE 5.7 mg/dL (0.6-1.3); POTASSIUM 4.4 mmol/L (3.5-5.1)
[2021-08-13] MEDS: ONDANSETRON HCL/PF 4 MG/2 ML VIAL IV PRN (18:44)
--- NOTE | 2021-08-13 18:44 | NUR ---
rn notes administered Zofran 4mg/ml iv push for nausea per patient request, refused to eat dinner, inserted Roger intact , bs-121 mg/dl infusing D51/2 ns @125 ml/hr. pm care done, due medication administered, endorsed oncoming nurse follow plan of care.
[2021-08-13 19:16] LABS: ALBUMIN 3.7 g/dL (3.4-5.0); BILIRUBIN,DIRECT 0.1 mg/dL (0.0-0.2); BILIRUBIN,TOTAL 0.3 mg/dL (0.2-1.0); CREATININE 5.8 mg/dL (0.6-1.3); POTASSIUM 3.7 mmol/L (3.5-5.1); TOTAL PROTEIN, SERUM 7.5 g/dL (6.4-8.2)
[2021-08-13 19:53] LABS: CALCIUM, SERUM 8.6 mg/dL (8.5-10.1); CREATININE 5.3 mg/dL (0.6-1.3); POTASSIUM 4.4 mmol/L (3.5-5.1)
[2021-08-13] MEDS: CEFTRIAXONE 1 G in IV D5W 50 ML IV SCH (20:01)
[2021-08-14] VITALS (27 sets, daily range): BP systolic 86–151; BP diastolic 62–95
[2021-08-14] MEDS: BLOOD SUGAR DIAGNOSTIC 1 EACH STRIP IN SCH ×24 (00:02→23:02)
[2021-08-14 00:21] LABS: CALCIUM, SERUM 8.6 mg/dL (8.5-10.1); POTASSIUM 4.6 mmol/L (3.5-5.1)
[2021-08-14] MEDS ORDERED: IV NS 0.9% 1,000 ML IV ONE (01:00)
[2021-08-14] MEDS: INSULIN REGULAR, HUMAN 100 UNIT in IV NS 0.9% 99 ML IV PRN ×2 (01:17)
[2021-08-14 03:38] LABS: CALCIUM, SERUM 7.8 mg/dL (8.5-10.1); CREATININE 4.6 mg/dL (0.6-1.3); POTASSIUM 4.7 mmol/L (3.5-5.1)
[2021-08-14 03:41] LABS: BASOPHILS % (AUTO) 0.1 % (0.0-2.0); EOSINOPHILS % (AUTO) 0.1 % (0.0-6.0); HEMATOCRIT 37 % (33-45); HEMOGLOBIN 12.2 g/dL (11.5-14.8); LYMPHOCYTES # (AUTO) 0.6 K/uL (0.8-4.8); LYMPHOCYTES % (AUTO) 6.3 % (20.0-44.0); MEAN CORPUSCULAR HGB CONC 33 g/dl (31.0-36.0); MEAN CORPUSCULAR VOLUME 82 fL (82-100); MONOCYTES # (AUTO) 0.9 K/uL (0.1-1.30); MONOCYTES % (AUTO) 9.3 % (2.0-12.0); NEUTROPHILS % (AUTO) 84.2 % (43.0-81.0); PLATELET COUNT (AUTO) 143 K/uL (150-450); RED BLOOD CELL COUNT(AUTO) 4.53 MIL/uL (4.0-5.2); WHITE BLOOD COUNT (AUTO) 9.5 K/uL (4.3-11.0)
[2021-08-14] MEDS: IV D5/0.45 NACL 1,000 ML IV PRN ×3 (04:20→19:14)
--- NOTE | 2021-08-14 06:23 | NUR ---
RECRUITER ACCOUNT MANAGER PT HR INCREASED TO 150; PT NOTED WITH MUCOID BLOODY OUTPUT FROM ILEOSTOMY AND BOWEL MOVEMEN. DIGITAL ENGINEER ADI NOTIFIED; ORDERS RECEIVED.
--- NOTE | 2021-08-14 08:00 | NUR ---
RN NOTES RECEIVED PATIENT A/A/O X 3 WITH FORGETFULNESS, BS-138MG/DL, PATIENT ON INSULIN DRIP WILL TITRATE PER ACU CHECK, PATIENT WAS COMPLAINING OF NAUSEA, AND PAIN ON MID ABDOMEN , ILEOSTOMY AREA. SEEN HOSPITALIST AND TO ORDER TO GET PATIENT HISTORY [facility] IV ACCESS ON DEMETRIUS MIDLINE INFUSING D51/2 NS @150ML/HR. MD AWARE OF LAB VALUES. HUGHES DRAINING LIGHT YELLOW OUTPUT. CALL LIGHT WITHIN TO REACH. WILL FOLLOW UP.
[2021-08-14 08:30] LABS: CREATININE 4.7 mg/dL (0.6-1.3); POTASSIUM 4.2 mmol/L (3.5-5.1)
[2021-08-14] MEDS: ONDANSETRON HCL/PF 4 MG/2 ML VIAL IV PRN ×2 (09:02→13:16)
--- NOTE | 2021-08-14 09:02 | NUR ---
rn notes administered Zofran 4 mg/ml iv push for nausea, and morphine sulfate 2 mg/ml iv push for surgical abdominal ileostomy area pain 7/10 per patient request bp-135/87. p-135. r-20. will follow up.
[2021-08-14] MEDS: MORPHINE SULFATE INJ 2 MG/ML DISP.SYRIN IV PRN ×4 (09:03→23:26)
[2021-08-14 12:24] LABS: CALCIUM, SERUM 8.4 mg/dL (8.5-10.1); CREATININE 4.5 mg/dL (0.6-1.3)
[2021-08-14] MEDS: ENSURE ENLIVE CHOC 237 ML CAN PO SCH ×2 (13:10→17:06)
--- NOTE | 2021-08-14 13:17 | NUR ---
rn notes administered morphine sulfate 2 mg/ml iv push for mid abdominal pain 10/28 , and zofran 4 mg/ml iv push for nausea per patient request bp 126/69, p-131, r-17. bs-126 mg/dl.
[2021-08-14] MEDS ORDERED: FAMOTIDINE (20 MG) 20 MG TABLET PO PRN (14:30)
[2021-08-14] MEDS: PANTOPRAZOLE 40 MG TABLET.DR PO SCH (17:06)
[2021-08-14] MEDS: SUCRALFATE 1 G TABLET PO SCH (17:06)
--- NOTE | 2021-08-14 17:51 | NUR ---
rn notes administered morphine sulfate 2mg/ml iv push for abdominal pain 10/28 per patient request, bp 104/66, p-131, r-28.
--- NOTE | 2021-08-14 19:00 | NUR ---
rn notes bs-134 mg/dl, due medication administered, vss, no acute respiratory distress, medication were administered for pain effective, changed ileostomy bag, patient has blood in the stool, refused dinner, patient on insulin drip 2.01u, and D%1/2 ns @150ml/hr. call light within to reach. endorsed oncoming nurse martha.
--- NOTE | 2021-08-14 19:10 | NUR ---
DELIVERY ASSOCIATE NOTE RECEIVED PATIENT IN BED RESTING ALERT ORIENTED X2 VERBALLY RESPONSIVE ON ROOM AIR O2:96% IV SITE IS ON RIGHT UPPER ARM MID LINE AND LEFT UPPER ARM PERIPHERAL IV SITE INTACT PATENT,PATIENT IS ON INSULIN DRIP AND D51/2NS 150CC/HR,HUGHES CATHETER IN PLACE AND ILEOSTOMY IN PLACE SAFETY MEASURE IMPLEMENT BED IN LOW POSITION AND LOCKED,HEAD OF THE BED ELEVATED CONTINUE TO MONITOR.
[2021-08-14] MEDS: MORPHINE SULFATE SR 15 MG TABLET.SA PO SCH (20:27)
[2021-08-14] MEDS: CEFTRIAXONE 1 G in IV D5W 50 ML IV SCH (20:27)
[2021-08-14] MEDS: MUPIROCIN OINT 2% 22 GM TUBE NS SCH (20:30)
[2021-08-14 22:52] LABS: BILIRUBIN,URINE NEGATIVE (NEGATIVE); COLOR,URINE YELLOW (YELLOW); LEUKOCYTE ESTERASE ,URINE NEGATIVE (NEGATIVE); NITRITE, URINE POSITIVE (NEGATIVE); PH,URINE 5.5 (5.0-8.0); PROTEIN,URINE NEGATIVE (NEGATIVE); UGLUCOSE 250 MG/DL mg/dL (NEGATIVE); UROBILINOGEN,URINE 0.2 EU/dL (0.2)
[2021-08-14 22:57] LABS: BACTERIA,URINE Many /HPF (None Seen); SQUAMOUS EPITHELIAL CELL,UR Few /HPF (None Seen); URIC ACID CRYSTALS,URINE Many /HPF (None Seen); WBC,URINE 0-2 /HPF (0-3); YEAST,URINE Many /HPF (None Seen)
[2021-08-14 23:13] LABS: CALCIUM, SERUM 7.2 mg/dL (8.5-10.1); CREATININE 3.4 mg/dL (0.6-1.3); POTASSIUM 3.6 mmol/L (3.5-5.1)
[2021-08-15] VITALS (26 sets, daily range): BP systolic 92–144; BP diastolic 63–93
[2021-08-15] MEDS: BLOOD SUGAR DIAGNOSTIC 1 EACH STRIP IN SCH ×21 (00:05→21:49)
[2021-08-15] MEDS: IV D5/0.45 NACL 1,000 ML IV PRN ×3 (01:20→16:26)
[2021-08-15 02:30] LABS: CALCIUM, SERUM 7.4 mg/dL (8.5-10.1); POTASSIUM 3.1 mmol/L (3.5-5.1)
[2021-08-15 04:55] LABS: BASOPHILS % (AUTO) 0.1 % (0.0-2.0); EOSINOPHILS % (AUTO) 0.1 % (0.0-6.0); HEMATOCRIT 31 % (33-45); HEMOGLOBIN 10.3 g/dL (11.5-14.8); LYMPHOCYTES # (AUTO) 0.6 K/uL (0.8-4.8); LYMPHOCYTES % (AUTO) 8.6 % (20.0-44.0); MEAN CORPUSCULAR HGB CONC 33 g/dl (31.0-36.0); MEAN CORPUSCULAR VOLUME 81 fL (82-100); MONOCYTES # (AUTO) 0.8 K/uL (0.1-1.30); MONOCYTES % (AUTO) 11.7 % (2.0-12.0); NEUTROPHILS # (AUTO) 5.7 K/uL (1.8-8.9); NEUTROPHILS % (AUTO) 79.5 % (43.0-81.0); PLATELET COUNT (AUTO) 90 K/uL (150-450); RED BLOOD CELL COUNT(AUTO) 3.81 MIL/uL (4.0-5.2); WHITE BLOOD COUNT (AUTO) 7.2 K/uL (4.3-11.0)
[2021-08-15 05:44] LABS: CALCIUM, SERUM 7.5 mg/dL (8.5-10.1); CREATININE 2.8 mg/dL (0.6-1.3)
--- NOTE | 2021-08-15 06:00 | NUR ---
RN NOTE RECEIVED CRITICAL LAB RESULTS MAGNESIUM 1.1 AND POTASSIUM 3.0 NOTIFIED BAND SAWMILL OPERATOR ADI WITH NEW ORDERS 2GRAM MAGNESIUM AND 20MEQ POTASSIUM NOTED AND CARRIED OUT.
[2021-08-15 06:13] LABS: MAGNESIUM 1.1 mg/dL (1.8-2.4)
[2021-08-15] MEDS ORDERED: Magnesium 1GM/D5W 100ML PREMIX PIGGYBACK IV ONE (07:00)
[2021-08-15] MEDS ORDERED: Magnesium 1 GM/2 ML VIAL IV ONE (07:00)
[2021-08-15] MEDS: Magnesium 1GM/D5W 100ML PREMIX 100 ML IV SCH ×2 (07:06→07:49)
[2021-08-15] MEDS ORDERED: POTASSIUM CHLORIDE 10 MEQ/50 ML PREMIXED IVPB FOR PERIPHERAL LINE IV ONE (07:30)
--- NOTE | 2021-08-15 07:35 | NUR ---
RN NOTE PATIENT REMAINS ON ALERT ORIENTED X2 ON INSULIN DRIP ON NS 150CC/HR ALL DUE MEDS GIVEN MD ORDERED,ON ROOM AIR NO SOB NOT ACUTE DISTRESS NOTED,HEAD OF THE BED ELEVATED,REPOSITIONED EVERY 2 HOURS KEPT CLEAN AND DRY ALL NEEDS MET ENDORSE NEXT COMING SHIFT FOR CONTINUATION OF CARE.
[2021-08-15] MEDS: ENSURE ENLIVE CHOC 237 ML CAN PO SCH ×3 (08:10→17:14)
[2021-08-15] MEDS: PANTOPRAZOLE 40 MG TABLET.DR PO SCH ×2 (08:13→17:18)
[2021-08-15] MEDS: SUCRALFATE 1 G TABLET PO SCH ×2 (08:13→17:18)
[2021-08-15] MEDS: MORPHINE SULFATE SR 15 MG TABLET.SA PO SCH ×2 (08:24→20:31)
[2021-08-15] MEDS: MUPIROCIN OINT 2% 22 GM TUBE NS SCH ×2 (08:25→20:31)
[2021-08-15] MEDS: VENLAFAXINE XR 75 MG CAP.SR.24H PO SCH (08:30)
[2021-08-15] MEDS ORDERED: POTASSIUM CHLORIDE 20 MEQ TAB.PRT.SR PO ONE (09:00)
[2021-08-15 10:35] LABS: BAND % (MANUAL) 12 % (0.0-5.0); LYMPHOCYTES % (MANUAL) 6 % (16-48); METAMYELOCYTES % 2 % (0-0); MONOCYTES % (MANUAL) 4 % (0-11.0); MYELOCYTES % 2 % (0-0); NEUTROPHILS % (MANUAL) 72 (42-76); PROMYELOCYTES % 2 % (0-0)
[2021-08-15] MEDS: MORPHINE SULFATE INJ 2 MG/ML DISP.SYRIN IV PRN ×2 (12:45→17:18)
--- NOTE | 2021-08-15 12:45 | NUR ---
rn notes administered morphine sulfate 2mg/ml iv push for abdominal pain 11/27 per patient request bp 136/74, p-117, r-22. patient refused to eat,bs-147mg/dl, continued insulin drip. friends next to the bed.
[2021-08-15 15:46] LABS: CALCIUM, SERUM 7.4 mg/dL (8.5-10.1); POTASSIUM 2.9 mmol/L (3.5-5.1)
--- NOTE | 2021-08-15 16:34 | NUR ---
SS Consult: Pt. Is a 65-year-old White female who demonstrates adequate insight to the reason for hospitalization. Per pt., she presented herself to hospital for diabetic ketoacidosis. Pt. was oriented x2, alert, and cooperative. During interview, pt. was capable of following directions, made appropriate eye-contact, and appeared groomed. Pt.s speech was at a normal rate and pt.s mood was elevated. Pt. reported no hx of mental health, substance abuse, suicidal ideation, or homicidal ideation. Pt. denies auditory hallucinations, visual hallucinations, paranoia, or delusions. SW explored pt.s living situation. Per pt., she lives alone [pt. could not confirm address]. Pt. seemed to be a bit confused. Pt. stated that she is working on getting IHSS to get a caregiver. Plan: AZEB did depression screening on pt. and she answered often to most questions. AZEB told pt.s nurse to put in a psych consult.
--- NOTE | 2021-08-15 17:18 | NUR ---
RN NOTES ADMINISTERED MORPHINE SULFATE 2MG/ML IV PUSH FOR ABDOMINAL PAIN 11/27 PER PATIENT REQUEST. BP 141/63, P-120, R-31. BS-129 MG/DL TITRATED INSULIN DRIP PER PROTOCOL.
--- NOTE | 2021-08-15 18:30 | NUR ---
rn notes medication were administered for pain effective, due medication administered, vss, pm care done. endorsed oncoming nurse follow plan of care.
--- NOTE | 2021-08-15 19:10 | NUR ---
RN NOTE PT RECEIVED IN BED. CURRENTLY ON ROOM AIR SHOWING NO S/S OF RESP DISTRESS/SOB. PT HYPERVENTILATING WITH RR IN HIGH 20s-MID 30s. ON BEDSIDE MONITOR SHOWING ST. PT IS A/OX3. ABLE TO VERBALIZE NEEDS. INSULIN DRIP ONGOING, WILL F/U WITH ONCALL REGARDING ANION GAP. ILEOSTOMY AND F/C NOTED. F/C DRAINING YELLOW COLORED URINE. IV ACCESS NOTED ON RIGHT UA ML. LINE FLUSHED, PATENT, AND INTACT WITH NO SIGNS OF INFILTRATION. ALL SAFETY MEASURES IMPLEMENTED. CALL LIGHT WITHIN REACH. HOB ELEVATED. BED LOCKED AND IN LOWEST POSITION. SIDE RAILS UP. WILL CONTINUE TO MONITOR AND ASSESS FOR ANY CHANGES DURING SHIFT.
--- NOTE | 2021-08-15 19:20 | NUR ---
RN NOTE SPOKE WITH ADI REGARDING PT BEING ON INSULIN DRIP AND HOW ANION GAP IS NOW 14, NA AT 132 AND PT BEING ON D51/2 NS AT 150 CC/HR. ADI STATED SHE'LL TAKE A LOOK. ASKED IF SHE WANTED TO CONTINUE INSULIN DRIP AND ADI ORDERED TO CONTINUE AND STATED SHE WILL HAVE TO PLACE ORDERS. ORDER NOTED.
[2021-08-15] MEDS ORDERED: POTASSIUM CHLORIDE 20 MEQ POWDER PACKET PO ONE (20:00)
[2021-08-15] MEDS ORDERED: DEXTROSE 50%-WATER 50 ML DISP.SYRIN IV PRN (20:00)
[2021-08-15] MEDS: ONDANSETRON HCL/PF 4 MG/2 ML VIAL IV PRN (20:05)
[2021-08-15] MEDS: IV NS 0.9% 1,000 ML IV PRN (20:30)
[2021-08-15] MEDS: CEFTRIAXONE 1 G in IV D5W 50 ML IV SCH (20:32)
[2021-08-15] MEDS: INSULIN REGULAR, HUMAN 100 UNIT/ML 3 ML VIAL SQ PRN (21:48)
[2021-08-15] MEDS: INSULIN GLARGINE, 100 UNIT/ML CARTRIDGE SQ SCH (21:49)
[2021-08-15] MEDS ORDERED: MEROPENEM 500 MG in IV NS 0.9% 50 ML IV ONE (22:00)
[2021-08-15] MEDS ORDERED: MEROPENEM 500 MG VIAL IV ONE (22:22)
[2021-08-16] VITALS (20 sets, daily range): BP systolic 107–145; BP diastolic 48–85
[2021-08-16] MEDS: MORPHINE SULFATE INJ 2 MG/ML DISP.SYRIN IV PRN ×4 (00:45→12:53)
[2021-08-16] MEDS: ONDANSETRON HCL/PF 4 MG/2 ML VIAL IV PRN ×3 (02:32→20:27)
--- NOTE | 2021-08-16 04:13 | NUR ---
RN NOTE ASKED PATIENT IF SHE WOULD LIKE TO BE CLEANED/GIVEN BED BATH AND HAVE LINENS CHANGED. PT REFUSED AND STATED "I'M OKAY".
[2021-08-16 05:23] LABS: BASOPHILS % (AUTO) 0.1 % (0.0-2.0); EOSINOPHILS % (AUTO) 0.3 % (0.0-6.0); HEMATOCRIT 27 % (33-45); LYMPHOCYTES # (AUTO) 0.4 K/uL (0.8-4.8); LYMPHOCYTES % (AUTO) 9.3 % (20.0-44.0); MEAN CORPUSCULAR HGB CONC 33 g/dl (31.0-36.0); MEAN CORPUSCULAR VOLUME 81 fL (82-100); MONOCYTES # (AUTO) 0.6 K/uL (0.1-1.30); MONOCYTES % (AUTO) 13.5 % (2.0-12.0); NEUTROPHILS # (AUTO) 3.5 K/uL (1.8-8.9); NEUTROPHILS % (AUTO) 76.8 % (43.0-81.0); PLATELET COUNT (AUTO) 62 K/uL (150-450); RED BLOOD CELL COUNT(AUTO) 3.31 MIL/uL (4.0-5.2); WHITE BLOOD COUNT (AUTO) 4.5 K/uL (4.3-11.0)
[2021-08-16] MEDS: IV NS 0.9% 1,000 ML IV PRN ×2 (06:38→17:47)
--- NOTE | 2021-08-16 06:43 | NUR ---
RN NOTE NO CHANGES IN PT CONDITION DURING SHIFT. PT RESTING COMFORTABLY. CURRENTLY ON ROOM AIR SHOWING NO S/S OF RESP DISTRESS/SOB. INSULIN DRIP DISCONTINUED PER ADI ORDER. PT STARTED ON 0.9% NS AT 100CC/HR. ILEOSTOMY OUTPUT DURING SHIFT WAS 300 ML AND F/C OUTPUT WAS 900ML. IV ACCESS NOTED ON RIGHT UA ML. LINE FLUSHED, PATENT, AND INTACT WITH NO SIGNS OF INFILTRATION. ALL SAFETY MEASURES IMPLEMENTED. CALL LIGHT WITHIN REACH. HOB ELEVATED. BED LOCKED AND IN LOWEST POSITION. SIDE RAILS UP. WILL ENDORSE TO MORNING SHIFT RN FOR CHANA.
--- NOTE | 2021-08-16 07:45 | NUR ---
RN OPENING NOTE PT RECEIVED IN BED. AWAKE A/OX3 AND ABLE TO VERBALIZE NEEDS. PT DECLINED BREAKFAST. RU MIDLINE INTACT, PATENT, AND FLUSHED. RUNNING 100CC NS. HUGHES INTACT AND DRAINING YELLOW URINE. PT STATING PAIN, AND REQUESTING PRN MORPHINE SULFATE. WILL CONTINUE TO MONITOR
[2021-08-16] MEDS: ENSURE ENLIVE CHOC 237 ML CAN PO SCH ×3 (08:00→16:23)
[2021-08-16 08:01] LABS: CALCIUM, SERUM 7.3 mg/dL (8.5-10.1); CREATININE 1.4 mg/dL (0.6-1.3); MAGNESIUM 1.7 mg/dL (1.8-2.4); POTASSIUM 3.7 mmol/L (3.5-5.1)
[2021-08-16] MEDS: PANTOPRAZOLE 40 MG TABLET.DR PO SCH ×2 (08:07→16:22)
[2021-08-16] MEDS: BLOOD SUGAR DIAGNOSTIC 1 EACH STRIP IN SCH ×4 (08:07→22:05)
[2021-08-16] MEDS: VENLAFAXINE XR 75 MG CAP.SR.24H PO SCH (08:07)
[2021-08-16] MEDS: SUCRALFATE 1 G TABLET PO SCH ×2 (08:07→16:22)
[2021-08-16] MEDS: MICAFUNGIN SODIUM 100 MG in IV NS 0.9% 100 ML IV SCH (08:07)
[2021-08-16] MEDS: MORPHINE SULFATE SR 15 MG TABLET.SA PO SCH (08:08)
[2021-08-16] MEDS: MUPIROCIN OINT 2% 22 GM TUBE NS SCH ×2 (08:10→20:42)
[2021-08-16] MEDS: INSULIN REGULAR, HUMAN 100 UNIT/ML 3 ML VIAL SQ PRN ×3 (08:49→16:44)
[2021-08-16] MEDS: MEROPENEM 500 MG in IV NS 0.9% 100 ML IV SCH ×2 (09:32→22:12)
[2021-08-16 09:59] LABS: ABG BASE EXCESS -10.3 mmol/L; ABG OXYGEN SATURATION 93.6 % (92.0-98.5); ABG PCO2 20.8 mmHg (35.0-45.0); ABG PH 7.408 (7.350-7.450); AaDO2 52.8 mmHg; COHb 0.1 % (0.5-1.5); MetHb 0.1 % (0.0-1.5); O2Hb 93.4 % (94.0-97.0); SITE, ABG Right Radial; VENT MODE, BG room air
[2021-08-16] MEDS ORDERED: Magnesium 1GM/D5W 100ML PREMIX 100 ML IV SCH ×2 (10:00)
[2021-08-16] MEDS ORDERED: MEROPENEM 500 MG in IV NS 0.9% 50 ML IV SCH (10:00)
[2021-08-16 10:10] LABS: CALCIUM, SERUM 7.6 mg/dL (8.5-10.1); CREATININE 1.3 mg/dL (0.6-1.3); POTASSIUM 3.5 mmol/L (3.5-5.1)
[2021-08-16] MEDS ORDERED: HYDROMORPHONE 1 MG/1 ML DISP.SYRIN IV PRN (15:30)
[2021-08-16] MEDS: HYDROMORPHONE 1 MG/1 ML DISP.SYRIN IV PRN ×2 (16:23→20:27)
[2021-08-16 16:47] LABS: BAND % (MANUAL) 5 % (0.0-5.0); EOSINOPHILS % (MANUAL) 1 % (0-4); LYMPHOCYTES % (MANUAL) 12 % (16-48); METAMYELOCYTES % 3 % (0-0); MONOCYTES % (MANUAL) 9 % (0-11.0); NEUTROPHILS % (MANUAL) 70 (42-76)
--- NOTE | 2021-08-16 18:53 | NUR ---
RN NOTE- PT TRANSFER FROM ICU. VS STABLE. MADE COMFORTABLE. NS AT 100/HR IVF SET UP TO DEMETRIUS. WILL GIVE REPORT TO NOC SHIFT
--- NOTE | 2021-08-16 18:55 | NUR ---
TRANSFERRED PT TO 3 BED 311-1. GAVE BEDSIDE REPORT TO JOSE EPPS
--- NOTE | 2021-08-16 19:50 | NUR ---
MEDIA LIAISON OFFICER OPENING NOTES PATIENT TRANSFERRED FROM ICU; PATIENT A/OX3, RESTING IN BED, BREATHING EVEN AND UNLABORED; TOLERATING ROOM AIR WELL; NO SOB NOTED, NO DISTRESS NOTED, PATIENT ABLE TO MAKE NEEDS KNOWN, PATIENT REPORTED 9/10 ABDOMINAL PAIN; PATIENT REQUESTING HER PAIN MED IF IT IS DUE; PATIENT HAS DEMETRIUS MIDLINE #18G, TOLERATING IVF WELL; IV SITE FLUSHING WELL; NO S/S OF REDNESS OR INFILTRATION NOTED; PATIENT ABLE TO DRINK WATER AND JUICE WITH NO ISSUES; SAFETY PRECAUTIONS IMPLEMENTED; BED LOCKED IN LOW POSITION; SIDE RAILSX2 UP, CALL LIGHT WITHIN REACH; WILL CONT TO MONITOR
[2021-08-16] MEDS ORDERED: MEROPENEM 500 MG VIAL IV ONE (22:07)
[2021-08-16] MEDS: INSULIN GLARGINE, 100 UNIT/ML CARTRIDGE SQ SCH (22:13)
[2021-08-17] MEDS: HYDROMORPHONE 1 MG/1 ML DISP.SYRIN IV PRN ×6 (00:32→23:38)
[2021-08-17 00:45] VITALS: BP 130/67
[2021-08-17 04:13] VITALS: BP 107/63
--- NOTE | 2021-08-17 05:30 | NUR ---
ARCHEOLOGIST NOTES PATIENT REQUESTING FOR LABS TO BE DRAWN AT 11AM. PATIENT MADE AWARE OF IMPORTANCE OF LABS BEING DRAWN ON TIME, PATIENT STILL REFUSED AND WANTS LABS TO BE DRAWN AT 11AM. WILL INFORM DAY SHIFT
[2021-08-17] MEDS: BLOOD SUGAR DIAGNOSTIC 1 EACH STRIP IN SCH ×4 (06:32→22:11)
[2021-08-17] MEDS: INSULIN REGULAR, HUMAN 100 UNIT/ML 3 ML VIAL SQ PRN ×4 (06:33→22:14)
--- NOTE | 2021-08-17 06:42 | NUR ---
EDITOR TRADE JOURNAL CLOSING NOTES PATIENT A/OX3, RESTING IN BED, BREATHING EVEN AND UNLABORED; TOLERATING ROOM AIR WELL; NO SOB NOTED, NO DISTRESS NOTED, PATIENT ABLE TO MAKE NEEDS KNOWN. PATIENT HAS DEMETRIUS MIDLINE #18G AND HORTENCIA #20 S/L. TOLERATING IVF WELL; IV SITE FLUSHING WELL; NO S/S OF REDNESS OR INFILTRATION NOTED; PATIENT ABLE TO DRINK WATER AND JUICE WITH NO ISSUES; ILEOSTOMY BAG PRESENT IN RLQ WITH 800CC OUT; HUGHES CATH INTACT, WITH YELLOW OUTPUT OF 650CC. ALL NEEDS RENDERED; SAFETY PRECAUTIONS IMPLEMENTED; BED LOCKED IN LOW POSITION; SIDE RAILSX2 UP, CALL LIGHT WITHIN REACH; WILL ENDORSE CHANA TO ONCOMING SHIFT
--- NOTE | 2021-08-17 07:30 | NUR ---
RN MS NOTES PT IN BED, AWAKE, ALERT AND ORIENTED, NO COMPLAINT OF PAIN OR ANY DISCOMFORT, RESPIRATIONS NORMAL, CALL LIGHT WITHIN REACH, IV FLUIDS INFUSING WELL, NEEDS ATTENDED, KEPT WARM AND COMFORTABLE IN BED.
[2021-08-17] MEDS ORDERED: IV NS 0.9% 1,000 ML IV PRN (08:00)
[2021-08-17] MEDS: ENSURE ENLIVE CHOC 237 ML CAN PO SCH ×3 (08:27→17:25)
[2021-08-17 08:29] VITALS: BP 121/69
[2021-08-17] MEDS: VENLAFAXINE XR 75 MG CAP.SR.24H PO SCH (09:07)
[2021-08-17] MEDS: SUCRALFATE 1 G TABLET PO SCH ×2 (09:07→16:17)
[2021-08-17] MEDS: PANTOPRAZOLE 40 MG TABLET.DR PO SCH ×2 (09:07→16:17)
[2021-08-17] MEDS: MICAFUNGIN SODIUM 100 MG in IV NS 0.9% 100 ML IV SCH (09:07)
[2021-08-17] MEDS: MUPIROCIN OINT 2% 22 GM TUBE NS SCH ×2 (09:47→21:59)
[2021-08-17] MEDS: MEROPENEM 500 MG in IV NS 0.9% 100 ML IV SCH ×2 (10:51→22:05)
[2021-08-17] MEDS: MAGNESIUM OXIDE 400 MG TABLET PO SCH ×2 (13:44→14:46)
[2021-08-17 16:02] VITALS: BP 129/74
[2021-08-17] MEDS: IV NS 0.9% 1,000 ML IV PRN (18:49)
--- NOTE | 2021-08-17 19:00 | NUR ---
RN MS CLOSING NOTES PATIENT IN BED WATCHING TV. AOX4 AND ABLE TO MAKE NEEDS KNOWN. PT IN RA AND TOLERATING WELL WITH NO SIGNS OF RESPIRATORY DISTRESS NOTED. DENIES PAIN & DISCOMFORT AT THIS TIME. DEMETRIUS MIDLINE G#18 INTACT AND PATENT WITH NS RUNNING AT 100/HR. NO SIGN OF INFILTRATION. HUGHES CATH INTACT AND DRAINING WELL WITH YELLOW URINE. ILEOSTOMY INTACT AND KEPT CLEAN WITH 500CC OUTPUT. STOMA IS PINK AND MOIST. PT'S BLOOD SUGAR MANAGED DURING SHIFT. WITH NO SIGNS OF HYPO/HYPERGLYCEMIA. SAFETY MEASURES IN PLACE: BED IN LOWEST AND IN LOCKED POSITION. CALL LIGHT WITHIN REACH, SIDE RAILS UP X 2, BED ALARM ON. WILL ENDORSE TO PARTS SALES COUNTERPERSON NURSE.
--- NOTE | 2021-08-17 19:35 | NUR ---
MS RN OPENING NOTES RECEIVED PATIENT ON BED; ALERT, AWAKE AND ORIENTED X 3. BREATHING IS EVEN AND NONLABORED. NO SOB NOTED. PATIENT IS ON ROOM AIR; TOLERATING WELL. WITH DEMETRIUS MIDLINE G18 INTACT AND PATENT WITH NS 1L RUNNING AT 100 ML/HR. NO SIGN OF INFILTRATION NOTED. WITH IV ACCESS ON HORTENCIA; INTACT AND SALINE LOCKED. WITH HUGHES CATH; INTACT AND DRAINING WELL WITH YELLOW URINE. ILEOSTOMY INTACT AND KEPT CLEAN WITH 500 CC OUTPUT. STOMA IS PINK AND MOIST. SAFETY MEASURES IMPLEMENTED. CALL LIGHT AND TABLE WITHIN REACH. SIDE RAILS UP X 2. BED PLACED IN LOWEST LOCKED POSITION. WILL CONTINUE TO MONITOR.
[2021-08-17 20:00] VITALS: BP 134/77
--- NOTE | 2021-08-17 22:11 | NUR ---
MS RN NOTES BLOOD SUGAR CHECKED; RESULT OF 221 MG/DL.
[2021-08-17] MEDS: INSULIN GLARGINE, 100 UNIT/ML CARTRIDGE SQ SCH (22:12)
--- NOTE | 2021-08-17 22:12 | NUR ---
MS RN NOTES REGULAR INSULIN 4 UNITS GIVEN PER SLIDING SCALE COVERAGE AND INSULIN LANTUS 8 UNITS GIVEN SQ ORDERED.
[2021-08-17] MEDS: HYDROCODONE/APAP 10/325MG TABLET PO PRN (22:30)
--- NOTE | 2021-08-17 22:30 | NUR ---
MS RN NOTES PATIENT COMPLAINED OF PAIN WITH SCALE OF 8/10; PRN NORCO 325MG 1 TABLET GIVEN ORALLY ORDERED. WILL CONTINUE TO MONITOR
--- NOTE | 2021-08-17 23:38 | NUR ---
MS RN NOTES PATIENT COMPLAINED OF SEVERE PAIN WITH A SCALE OF 9/10; PRN MED DILAUDID 2MG/2ML GIVEN IVTT ORDERED.
[2021-08-18] VITALS: BP 125/66
[2021-08-18] MEDS: ONDANSETRON HCL/PF 4 MG/2 ML VIAL IV PRN ×3 (03:17→21:46)
--- NOTE | 2021-08-18 03:17 | NUR ---
SURVEY SUPERVISOR NOTES FEELING NAUSEOUS,ZOFRAN 4MG IV GIVEN PER PATIENT REQUEST.
[2021-08-18 04:00] VITALS: BP 134/71
--- NOTE | 2021-08-18 05:30 | NUR ---
FITNESS CONSULTANT NOTES BLOOD SUGAR CHECKED WITH RESULT OF 152 MG/DL; 2 UNITS OF INSULIN GIVEN SQ PER SLIDING SCALE ORDERED.
[2021-08-18] MEDS: HYDROMORPHONE 1 MG/1 ML DISP.SYRIN IV PRN ×5 (05:38→21:52)
--- NOTE | 2021-08-18 05:38 | NUR ---
ICE CREAM FREEZER HELPER NOTES HAVING ABDOMINAL PAIN,DILAUDID 2MG IV ORDERED FOR STRONG PAIN AND PER PATIENT REQUEST
[2021-08-18] MEDS: BLOOD SUGAR DIAGNOSTIC 1 EACH STRIP IN SCH ×4 (05:55→22:06)
[2021-08-18] MEDS: INSULIN REGULAR, HUMAN 100 UNIT/ML 3 ML VIAL SQ PRN ×3 (06:04→22:15)
--- NOTE | 2021-08-18 06:52 | NUR ---
LONGWALL SHEARER OPERATOR CLOSING NOTES PATIENT IS ON BED; ALERT, AWAKE AND ORIENTED X 3. IN NO ACUTE DISTRESS NOTED. ON ROOM AIR, WELL TOLERATED. ON TELEMETRY MONITORING SR HR 93. WITH RIGHT UA MIDLINE G18 OF NS 1L INFUSING WELL, PATENT AND INTACT. WITH IV ACCESS AT LEFT UA G20; INTACT AND SALINE LOCKED. WITH HUGHES CATH, INTACT AND DRAINING TO YELLOW URINE. ILEOSTOMY IS INTACT, KEPT CLEAN WITH 5OO CC OUTPUT. SAFETY MEASURES MAINTAINED. CALL LIGHT AND TABLE WITHIN REACH. SIDE RAILS UP X 2. BED IS IN LOWEST LOCKED POSITION. ENDORSED TO MORNING SHIFT FOR CONTINUITY OF CARE.
[2021-08-18 08:00] VITALS: BP 106/68
--- NOTE | 2021-08-18 08:05 | NUR ---
DECKHAND ENGINEER OPENING NOTE Patient in bed, awake. A/O x 3, able to make needs known. On room air, breathing evenly and unlabored. No SOB or s/s of distress noted. IV access on DEMETRIUS midline #18G infusing NS at 100 ml/hr and HORTENCIA #20G SL, intact and patent. Roger catheter in place draining to a yellow colored urine. Colostomy in place on RLQ of abdomen. Safety precautions in place: bed in low, locked position; siderails up x 2; call light within reach. Will continue to monitor. Addendum: 08/18/21 at 0810 by MI CALDWELL RN ADD: On tele monitoring showing SR, HR on the 90's. Addendum: 08/18/21 at 1419 by MI CALDWELL RN CORRECTION: Ileostomy in place on RLQ of abdomen.
[2021-08-18] MEDS: MICAFUNGIN SODIUM 100 MG in IV NS 0.9% 100 ML IV SCH (08:20)
[2021-08-18] MEDS: PANTOPRAZOLE 40 MG TABLET.DR PO SCH ×2 (08:21→16:13)
[2021-08-18] MEDS: ENSURE ENLIVE CHOC 237 ML CAN PO SCH ×3 (08:21→16:13)
[2021-08-18] MEDS: MUPIROCIN OINT 2% 22 GM TUBE NS SCH ×2 (08:21→21:09)
[2021-08-18] MEDS: SUCRALFATE 1 G TABLET PO SCH ×2 (08:21→16:13)
[2021-08-18] MEDS: VENLAFAXINE XR 75 MG CAP.SR.24H PO SCH (08:21)
[2021-08-18] MEDS: IV NS 0.9% 1,000 ML IV PRN (09:14)
[2021-08-18] MEDS: MEROPENEM 500 MG in IV NS 0.9% 100 ML IV SCH ×2 (09:53→21:57)
--- NOTE | 2021-08-18 19:15 | NUR ---
RN ONCOLOGY CLOSING NOTE Patient in bed, resting comfortably. A/O x 3, able to make needs known. Stable on room air, breathing evenly and unlabored. No SOB or s/s of distress noted. IV access on DEMETRIUS midline #18G infusing NS at 100 ml/hr and HORTENCIA #20G SL, intact and patent. Roger catheter in place draining to a yellow colored urine with an output of [address] on RLQ of abdomen, output of 710 cc. On tele monitoring showing SR, HR 99. All needs attended to. Due meds given. Safety precautions maintained: bed in low, locked position; siderails up x 2; call light within reach. Will endorse to pollution control chemist nurse for [facility].
[2021-08-18 19:17] LABS: CALCIUM, SERUM 6.9 mg/dL (8.5-10.1); CREATININE 0.6 mg/dL (0.6-1.3); POTASSIUM 3.1 mmol/L (3.5-5.1)
[2021-08-18 19:19] LABS: MAGNESIUM 1.2 mg/dL (1.8-2.4)
--- NOTE | 2021-08-18 19:35 | NUR ---
SAWMILL HAND OPENING NOTES RECEIVED PATIENT ON BED, AWAKE, ALERT AND ORIENTED X 3. BREATHING IS EVEN AND NONLABORED. ON ROOM AIR, TOLERATING WELL. IN NO ACUTE DISTRESS NOTED. WITH MIDLINE AT DEMETRIUS G18 INFUSING WITH NS AT 100 ML/HR. ABLE TO MAKE NEEDS KNOWN. SAFETY MEASURES IMPLEMENTED: CALL LIGHT AND TABLE WITHIN REACH, SIDE RAILS UP X 2; BED IS IN LOWEST LOCKED POSITION. WILL CONTINUE TO MONITOR
[2021-08-18 20:00] VITALS: BP 130/73
[2021-08-18 20:09] LABS: BASOPHILS % (AUTO) 0.1 % (0.0-2.0); EOSINOPHILS % (AUTO) 1.2 % (0.0-6.0); HEMATOCRIT 25 % (33-45); HEMOGLOBIN 8.2 g/dL (11.5-14.8); LYMPHOCYTES # (AUTO) 0.4 K/uL (0.8-4.8); LYMPHOCYTES % (AUTO) 12.3 % (20.0-44.0); MEAN CORPUSCULAR HGB CONC 33 g/dl (31.0-36.0); MEAN CORPUSCULAR VOLUME 82 fL (82-100); MONOCYTES # (AUTO) 0.6 K/uL (0.1-1.30); MONOCYTES % (AUTO) 18.8 % (2.0-12.0); NEUTROPHILS # (AUTO) 2.1 K/uL (1.8-8.9); NEUTROPHILS % (AUTO) 67.6 % (43.0-81.0); PLATELET COUNT (AUTO) 63 K/uL (150-450); RED BLOOD CELL COUNT(AUTO) 3.06 MIL/uL (4.0-5.2); WHITE BLOOD COUNT (AUTO) 3.2 K/uL (4.3-11.0)
--- NOTE | 2021-08-18 20:10 | NUR ---
FORESTRY WORKERS NOTES BLOOD CHEMISTRY WITH RESULT OF MAGNESIUM IS 1.2; POTASSIUM IS 3.1. NOTIFIED DR JORDON BROUSSARD; MADE AWARE; WITH ORDERS MADE AND CARRIED OUT.
[2021-08-18] MEDS: Magnesium 1GM/D5W 100ML PREMIX 100 ML IV SCH ×2 (20:54→23:30)
[2021-08-18] MEDS: POTASSIUM CHLORIDE 20 MEQ POWDER PACKET PO SCH ×3 (20:54→23:22)
--- NOTE | 2021-08-18 20:54 | NUR ---
DAMPER FITTER NOTES MAGNESIUM 1 GM IVPB GIVEN ORDERED. KLOR POWDER 1 PACK 20MEQ DILUTED IN 4 0Z GIVEN ORALLY ORDERED.
[2021-08-18] MEDS ORDERED: POTASSIUM CHLORIDE 10 MEQ/50 ML PREMIXED IVPB FOR PERIPHERAL LINE IV ONE (21:00)
[2021-08-18] MEDS ORDERED: Magnesium 1GM/D5W 100ML PREMIX PIGGYBACK IV ONE (21:00)
[2021-08-18] MEDS: INSULIN GLARGINE, 100 UNIT/ML CARTRIDGE SQ SCH (22:18)
[2021-08-19] VITALS: BP 130/82
[2021-08-19] MEDS: HYDROMORPHONE 1 MG/1 ML DISP.SYRIN IV PRN ×5 (02:15→19:49)
[2021-08-19] MEDS ORDERED: Magnesium 1GM/D5W 100ML PREMIX 200 ML IV ONE (02:31)
[2021-08-19] MEDS: Magnesium 1GM/D5W 100ML PREMIX 100 ML IV SCH ×2 (02:32→03:36)
[2021-08-19 04:00] VITALS: BP 145/93
[2021-08-19] MEDS: HYDROCODONE/APAP 10/325MG TABLET PO PRN ×4 (04:29→16:16)
[2021-08-19] MEDS: BLOOD SUGAR DIAGNOSTIC 1 EACH STRIP IN SCH ×3 (06:12→17:39)
[2021-08-19] MEDS: INSULIN REGULAR, HUMAN 100 UNIT/ML 3 ML VIAL SQ PRN ×3 (06:15→17:39)
--- NOTE | 2021-08-19 06:30 | NUR ---
ASSISTANT OPERATIONS MANAGER CLOSING NOTES PATIENT IS ON BED; ALERT, AWAKE AND ORIENTED X 3. IN NO ACUTE DISTRESS NOTED. ON ROOM AIR, WELL TOLERATED. ON TELEMETRY MONITORING SR HR 98. WITH RIGHT UA MIDLINE G18 OF NS 1L INFUSING WELL, PATENT AND INTACT. WITH IV ACCESS AT LEFT UA G20; INTACT AND SALINE LOCKED. WITH HUGHES CATH, INTACT AND DRAINING TO YELLOW URINE. ILEOSTOMY IS INTACT, KEPT CLEAN WITH 650 CC OUTPUT. SAFETY MEASURES MAINTAINED. CALL LIGHT AND TABLE WITHIN REACH. SIDE RAILS UP X 2. BED IS IN LOWEST LOCKED POSITION. ENDORSED TO MORNING SHIFT FOR CONTINUITY OF CARE.
[2021-08-19 06:45] LABS: BASOPHILS % (AUTO) 0.3 % (0.0-2.0); EOSINOPHILS % (AUTO) 1.1 % (0.0-6.0); HEMATOCRIT 27 % (33-45); HEMOGLOBIN 8.7 g/dL (11.5-14.8); LYMPHOCYTES # (AUTO) 0.5 K/uL (0.8-4.8); MEAN CORPUSCULAR HGB CONC 33 g/dl (31.0-36.0); MEAN CORPUSCULAR VOLUME 82 fL (82-100); MONOCYTES # (AUTO) 0.6 K/uL (0.1-1.30); MONOCYTES % (AUTO) 16.9 % (2.0-12.0); NEUTROPHILS # (AUTO) 2.5 K/uL (1.8-8.9); NEUTROPHILS % (AUTO) 68.7 % (43.0-81.0); PLATELET COUNT (AUTO) 80 K/uL (150-450); RED BLOOD CELL COUNT(AUTO) 3.28 MIL/uL (4.0-5.2); WHITE BLOOD COUNT (AUTO) 3.6 K/uL (4.3-11.0)
[2021-08-19 07:02] LABS: CALCIUM, SERUM 7.5 mg/dL (8.5-10.1); CREATININE 0.8 mg/dL (0.6-1.3); MAGNESIUM 2.4 mg/dL (1.8-2.4); PHOSPHORUS 1.5 mg/dL (2.5-4.9); POTASSIUM 4.1 mmol/L (3.5-5.1)
--- NOTE | 2021-08-19 07:20 | NUR ---
CARPENTRY FOREMAN OPENING NOTES PATIENT IN BED AWAKE WATCHING TV. AOX3. ABLE TO MAKE NEEDS KNOWN. PT IN RA AND TOLERATING WELL WITH NO SIGNS OF RESPIRATORY DISTRESS NOTED. BREATHING EVEN AND UNLABORED. ON TELE MONITOR WITH SR, HR 96. DENIES PAIN & DISCOMFORT AT THIS TIME. DEMETRIUS MIDLINE G#18 INTACT AND PATENT WITH NS RUNNING AT 100ML/HR. NO SIGNS OF INFILTRATION. HUGHES CATH INTACT AND DRAINING WELL WITH YELLOW URINE. ILEOSTOMY INTACT WITH STOMA PINK AND MOIST. SAFETY MEASURES IN PLACE: BED IN LOWEST AND IN LOCKED POSITION. CALL LIGHT WITHIN REACH, SIDE RAILS UP X 2, BED ALARM ON. WILL TO MONITOR AND WITH PLAN OF CARE.
[2021-08-19] MEDS ORDERED: NEUTRA PHOS 1 POWD.PACKET PO ONE ×2 (07:30→11:00)
[2021-08-19] MEDS: VENLAFAXINE XR 75 MG CAP.SR.24H PO SCH (08:12)
[2021-08-19] MEDS: PANTOPRAZOLE 40 MG TABLET.DR PO SCH ×2 (08:12→16:15)
[2021-08-19] MEDS: SUCRALFATE 1 G TABLET PO SCH ×2 (08:12→16:15)
[2021-08-19] MEDS: ENSURE ENLIVE CHOC 237 ML CAN PO SCH ×3 (08:18→17:34)
[2021-08-19 08:43] VITALS: BP 119/70
[2021-08-19] MEDS: IV NS 0.9% 1,000 ML IV PRN (09:03)
[2021-08-19] MEDS: MICAFUNGIN SODIUM 100 MG in IV NS 0.9% 100 ML IV SCH (09:34)
[2021-08-19] MEDS: MUPIROCIN OINT 2% 22 GM TUBE NS SCH (09:41)
--- NOTE | 2021-08-19 10:19 | NUR ---
WOUND CARE CONSULT: PT SEEN PER INSURANCE SALES ASSOCIATE REQUEST FOR SKIN PROTECTION RECOMMENDATIONS WITH ILEOSTOMY. POUCH IS PATENT AT THIS TIME WITH SMALL AMOUNT OF LIQUID STOOL. RECOMMENDATIONS MADE FOR SKIN PROTECTION AND DISCUSSED WITH NURSING STAFF. MD IN AGREEMENT WITH PLAN OF CARE.
[2021-08-19] MEDS: MEROPENEM 500 MG in IV NS 0.9% 100 ML IV SCH (10:34)
[2021-08-19 12:45] VITALS: BP 121/79
[2021-08-19 13:24] LABS: BAND % (MANUAL) 2 % (0.0-5.0); EOSINOPHILS % (MANUAL) 1 % (0-4); LYMPHOCYTES % (MANUAL) 11 % (16-48); MONOCYTES % (MANUAL) 15 % (0-11.0); NEUTROPHILS % (MANUAL) 71 (42-76)
[2021-08-19] MEDS ORDERED: MICA100V3 IV (15:55)
[2021-08-19] MEDS ORDERED: MERO500V23 IV (15:55)
[2021-08-19 16:02] VITALS: BP 138/79
--- NOTE | 2021-08-19 19:37 | NUR ---
LACE AND TEXTILES RESTORER CLOSING NOTES PATIENT IN BED AWAKE WATCHING TV. AOX3. ABLE TO MAKE NEEDS KNOWN. PT IN RA AND TOLERATING WELL WITH NO SIGNS OF RESPIRATORY DISTRESS NOTED. BREATHING EVEN AND UNLABORED. ON TELE MONITOR WITH SINUS TACH, HR 112. DENIES PAIN & DISCOMFORT AT THIS TIME. DEMETRIUS MIDLINE G#18 INTACT AND PATENT WITH NS RUNNING AT 100ML/HR. NO SIGNS OF INFILTRATION. HUGHES CATH REMOVED, NO PAIN OR DISCOMFORT NOTED AT THIS TIME. ILEOSTOMY INTACT WITH STOMA PINK AND MOIST. SAFETY MEASURES IN PLACE: BED IN LOWEST AND IN LOCKED POSITION. CALL LIGHT WITHIN REACH, SIDE RAILS UP X 2, BED ALARM ON. PT WILL BE PICKED UP AT 8PM FOR DISCHARGE TO [facility]. GAVE ALL REPORT ABOUT PT, TO SUPRIYA CARO IN [facility]. ALL BELONGINGS ACCOUNTED FOR AND SIGNED BY PT. ALL DISCHARGED DOCUMENTS, DC INSTRUCTIONS, AND ALL ORDERED MEDICATIONS DISCUSSED AND TEACHING PROVIDED TO PT. PT VERBALIZED UNDERSTANDING AND SIGNED ALL DISCHARGED DOCUMENTS. WILL ENDORSE TO POCKET GRINDER OPERATOR
[2021-08-19 19:58] VITALS: BP 134/78
--- NOTE | 2021-08-19 20:26 | NUR ---
BRIDAL GOWN FITTERUNIT TENDER NOTES PATIENT PICKED UP BY EMT'S FOR DISCHARGE TO [facility]. PT ALERT/ORIENTED X 3, PT ABLE TO MAKE NEEDS KNOWN. TELE SHELL FISHERMAN REMOVED. DEMETRIUS MIDLINE #18G INTACT AND FLUSHING WELL. ILEOSTOMY BAG ON RLQ EMPTIED. ALL BELONGINGS TAKEN WITH PATIENT. DISCHARGE PAPERS GIVEN TO EMT'S ALONG WITH [facility] MEDICATION AND MEDICATION PRESCRIPTION.
== END 2021-08-19 20:26 | DRG 420 ==
LOC: ER 21:10 → ICU 08-13 03:48 → TELE 08-16 18:55 → MED 08-17 10:48 → TELE 08-17 20:05
PROVIDERS: ADMIT Nurse Practitioner Acute Care; ATTEND Internal Medicine
PROC: 05HB33Z Insertion of Infusion Device into Right Basilic Vein, Percutaneous Approach (ICD-10-PCS; principal; 2021-08-13)
DX: E11.10 Type 2 diabetes mellitus with ketoacidosis without coma (principal); N17.0 Acute kidney failure with tubular necrosis; D65 Disseminated intravascular coagulation [defibrination syndrome]; G93.41 Metabolic encephalopathy; B37.49 Other urogenital candidiasis; R45.851 Suicidal ideations; F17.200 Nicotine dependence, unspecified, uncomplicated; B96.20 Unspecified Escherichia coli [E. coli] as the cause of diseases classified elsewhere; E87.5 Hyperkalemia; K21.9 Gastro-esophageal reflux disease without esophagitis; G89.4 Chronic pain syndrome; R56.9 Unspecified convulsions; F20.9 Schizophrenia, unspecified; Z79.899 Other long term (current) drug therapy; I10 Essential (primary) hypertension; Z87.19 Personal history of other diseases of the digestive system; K52.9 Noninfective gastroenteritis and colitis, unspecified; Z22.322 Carrier or suspected carrier of Methicillin resistant Staphylococcus aureus; Z93.3 Colostomy status
CPT/HCPCS: 36410; 36415; 36600; 71045-TC; 76770-TC; 80048-TC; 80076-TC; 81001; 82010-TC; 82803-TC; 82962-TC; 83605-TC; 83690-TC; 83735-TC; 84100-TC; 85025-TC; 87040-TC; 87081-TC; 87086-TC; 87186-TC; 92526; 92611-TC; 97116-TC; 97530-TC; A6403; C9803; G0378; J0696; J1170; J1815; J2185; J2248; J2270; J2405; J3475; J3480; J3490; J7030; J7050; J7060

== ENCOUNTER 2021-09-23 12:52 | Emergency (ER) | payer MEDICARE, OTHER ==
[~2021-09-23] VITALS: Ht 165.1 cm; Wt 49.9 kg
[~2021-09-23 12:52] MED LIST changes: -AMIT50TA3 PO; -AMLO-212 PO; -AMYL1CAP56 PO; +ERGO500040 PO; +FAMO20TA8 PO; -GABA600T12 PO; +HYDR-3980 PO; +INSU100C10 SQ; +INSU100V7 SQ; +LISI20TA30 PO; +LOPE2TAB25 PO; -LOSA50TA39 PO; +MERO500V23 IV; +MICA100V3 IV; +MORP15TA7 PO; -ONDA-97 PO; +PANT40TA49 PO; -PROP40TA7 PO; +PSYL3.4P6 PO; +SUCR1TAB31 PO; -TEMA15CA PO; +VENL150C2 PO; +ZINC220T4 PO; +ZOLP5TAB2 PO
--- NOTE | 2021-09-23 13:02 | NUR ---
KOBI FROM [facility] C/O ABDOMINAL PAIN AND NAUSEA X3DAYS , HAS OSTOMY AND BAG HAS BEEN FILLING UP WITH LIQUID STOOLS ALMOST EVERY HOUR. PT STATED HER PAIN IS 5/10 ON HER RUQ, DOES NOT RADIATE. VITALS WITHIN NORMAL LIMITS. BREATHING EVEN AND UNALABORED. WARM BLANKET PROVIDED FOR COMFORT.
--- NOTE | 2021-09-23 13:43 | NUR ---
URINE COLLECTED AND SENT
--- NOTE | 2021-09-23 13:54 | NUR ---
COVID TEST COLLECTED AND SENT
--- NOTE | 2021-09-23 13:54 | NUR ---
PT TAKEN TO CT [facility]IA [facility]
--- NOTE | 2021-09-23 14:17 | NUR ---
PT RETURNED FROM [facility]IA [facility]
[2021-09-23 14:19] LABS: BILIRUBIN,URINE NEGATIVE (NEGATIVE); COLOR,URINE YELLOW (YELLOW); LEUKOCYTE ESTERASE ,URINE NEGATIVE (NEGATIVE); NITRITE, URINE NEGATIVE (NEGATIVE); PH,URINE 5.5 (5.0-8.0); PROTEIN,URINE NEGATIVE (NEGATIVE); UGLUCOSE >=1000 mg/dL (NEGATIVE); UROBILINOGEN,URINE 0.2 EU/dL (0.2)
[2021-09-23 14:44] LABS: BASOPHILS % (AUTO) 0.6 % (0.0-2.0); EOSINOPHILS % (AUTO) 2.9 % (0.0-6.0); HEMATOCRIT 33 % (33-45); HEMOGLOBIN 10.2 g/dL (11.5-14.8); LYMPHOCYTES # (AUTO) 0.7 K/uL (0.8-4.8); MEAN CORPUSCULAR HGB CONC 32 g/dl (31.0-36.0); MEAN CORPUSCULAR VOLUME 81 fL (82-100); MONOCYTES # (AUTO) 0.3 K/uL (0.1-1.30); MONOCYTES % (AUTO) 10.6 % (2.0-12.0); NEUTROPHILS # (AUTO) 1.4 K/uL (1.8-8.9); NEUTROPHILS % (AUTO) 56.9 % (43.0-81.0); PLATELET COUNT (AUTO) 109 K/uL (150-450); RED BLOOD CELL COUNT(AUTO) 4.01 MIL/uL (4.0-5.2); WHITE BLOOD COUNT (AUTO) 2.5 K/uL (4.3-11.0)
[2021-09-23] MEDS ORDERED: AMOX-430 PO (14:57)
[2021-09-23] MEDS ORDERED: ONDA4TAB5 PO (14:57)
[2021-09-23] MEDS ORDERED: IV NS 0.9% 250 ML BAG IV ONE (15:00)
[2021-09-23 15:03] LABS: ALBUMIN 2.6 g/dL (3.4-5.0); BILIRUBIN,DIRECT 0.1 mg/dL (0.0-0.2); BILIRUBIN,TOTAL 0.1 mg/dL (0.2-1.0); CALCIUM, SERUM 7.7 mg/dL (8.5-10.1); CREATININE 0.9 mg/dL (0.6-1.3); POTASSIUM 4.5 mmol/L (3.5-5.1)
--- NOTE | 2021-09-23 15:10 | NUR ---
CALLED [facility] AND SET UP BLS TRANSPORT ETA 1600
[2021-09-23 15:32] LABS: BACTERIA,URINE RARE /HPF (None Seen); WBC,URINE 0-2 /HPF (0-3)
--- NOTE | 2021-09-23 15:45 | NUR ---
REPORT GIVEN TO ALISSA
[2021-09-23 16:25] LABS: EOSINOPHILS % (MANUAL) 1 % (0-4); LYMPHOCYTES % (MANUAL) 28 % (16-48); MONOCYTES % (MANUAL) 6 % (0-11.0); NEUTROPHILS % (MANUAL) 65 (42-76)
--- NOTE | 2021-09-23 16:42 | NUR ---
TRASNPORTATION ARRIVED TO LEGAL RESEARCHER PT, REPORT GIVEN TO CAPSULE INSPECTOR. PT LEFTS IN STABLE CONDITION AND ABLE TO WALK TO THE STRETCH WITHOUT ASSISTANCE. IV REMOVED AND PRESSURE WAS APPLIED.
[2021-09-23 16:43] VITALS: BP 106/71
== END 2021-09-23 16:44 ==
LOC: ER 12:53
DX: K52.9 Noninfective gastroenteritis and colitis, unspecified (principal); D61.818 Other pancytopenia; R11.0 Nausea; I10 Essential (primary) hypertension; K21.9 Gastro-esophageal reflux disease without esophagitis; E11.9 Type 2 diabetes mellitus without complications; Z86.69 Personal history of other diseases of the nervous system and sense organs; Z87.19 Personal history of other diseases of the digestive system; Z79.899 Other long term (current) drug therapy
CPT/HCPCS: 36415; 74176; 80048; 80076; 81001; 83690; 85007; 85025; 96360; 99284; J7030

== ENCOUNTER 2021-10-14 02:20 | Inpatient (IN) | payer MEDICARE, OTHER ==
[~2021-10-14] VITALS: Ht 165.1 cm; Wt 52.6 kg
[~2021-10-14 02:20] MED LIST changes: +AMOX-430 PO; +ONDA4TAB5 PO
--- NOTE | 2021-10-14 02:40 | NUR ---
TO ER BED 10. BIBPA FROM SNF C/O GLF UNWITNESSED TODAY, LAC TO FOREHEAD. ALSO C/O ABDOMINAL PAIN AND N/V. LAC OPEN TO AIR, NO DISCHARGE NOTED. CHANGED INTO GOWN. CONNECTED TO MONITOR. AWAITING MD SMITH
[2021-10-14] MEDS ORDERED: ONDANSETRON HCL/PF 4 MG/2 ML VIAL ONE (03:15)
[2021-10-14] MEDS ORDERED: HYDROMORPHONE 1 MG/1 ML DISP.SYRIN ONE (03:15)
--- NOTE | 2021-10-14 03:27 | NUR ---
IV LINE ESTABLISHED LHAND 24G
[2021-10-14] MEDS ORDERED: HYDROMORPHONE INJ 2 MG/ML DISP.SYRIN IV ONE (03:30)
[2021-10-14] MEDS ORDERED: IV NS 0.9% 1,000 ML BAG IV ONE ×2 (03:30→05:00)
[2021-10-14] MEDS ORDERED: ONDANSETRON HCL/PF 4 MG/2 ML VIAL IVP ONE (03:30)
--- NOTE | 2021-10-14 03:48 | NUR ---
er polymerization kettle operator @ bedside
[2021-10-14 04:10] LABS: BASOPHILS % (AUTO) 0.2 % (0.0-2.0); EOSINOPHILS % (AUTO) 0.5 % (0.0-6.0); HEMATOCRIT 46 % (33-45); LYMPHOCYTES # (AUTO) 1.3 K/uL (0.8-4.8); LYMPHOCYTES % (AUTO) 8.1 % (20.0-44.0); MEAN CORPUSCULAR HGB CONC 30 g/dl (31.0-36.0); MEAN CORPUSCULAR VOLUME 82 fL (82-100); MONOCYTES # (AUTO) 1.2 K/uL (0.1-1.30); MONOCYTES % (AUTO) 7.6 % (2.0-12.0); NEUTROPHILS # (AUTO) 13.6 K/uL (1.8-8.9); NEUTROPHILS % (AUTO) 83.6 % (43.0-81.0); PLATELET COUNT (AUTO) 416 K/uL (150-450); RED BLOOD CELL COUNT(AUTO) 5.58 MIL/uL (4.0-5.2); WHITE BLOOD COUNT (AUTO) 16.3 K/uL (4.3-11.0)
[2021-10-14 04:18] LABS: CALCIUM, SERUM 9.8 mg/dL (8.5-10.1); CARBON DIOXIDE 12 mmol/L (21-32); CHLORIDE 94 mmol/L (98-107); CREATININE 6.8 mg/dL (0.6-1.3); UREA NITROGEN, BLOOD 65 mg/dL (7-18)
[2021-10-14 04:24] LABS: SODIUM SERUM 127 mmol/L (136-145)
[2021-10-14 04:31] LABS: POTASSIUM 8.1 mmol/L (3.5-5.1)
[2021-10-14 04:32] LABS: GLUCOSE 463 mg/dL (74-106)
--- NOTE | 2021-10-14 04:33 | NUR ---
CRITICAL LAB: K+ 8.1, GLU 468
[2021-10-14] MEDS ORDERED: INSULIN REGULAR, HUMAN 100 UNIT/ML 10 ML VIAL ONE ×2 (04:41→06:30)
--- NOTE | 2021-10-14 04:41 | NUR ---
EPIC PAGED FOR PANEL
[2021-10-14] MEDS ORDERED: Calcium Gluconate 0.465 MEQ/ML VIAL IV ONE (04:43)
[2021-10-14] MEDS ORDERED: PIPERACILLIN /TAZOBACTAM 3.375 G VIAL IV ONE (04:44)
[2021-10-14] MEDS ORDERED: SODIUM BICARBONATE SYR 50 MEQ/50 ML DISP.SYRIN ONE ×2 (04:44→11:43)
[2021-10-14] MEDS ORDERED: INSULIN REGULAR, HUMAN 100 UNIT/ML 10 ML VIAL IV ONE (05:00)
[2021-10-14] MEDS ORDERED: SODIUM BICARBONATE SYR 50 MEQ/50 ML DISP.SYRIN IV ONE ×2 (05:00→10:00)
[2021-10-14] MEDS ORDERED: PIPERACILLIN /TAZOBACTAM 3.375 G in IV D5W 50 ML IV ONE (05:00)
[2021-10-14] MEDS ORDERED: Calcium Gluconate 1GM/10ML 4.65 MEQ in IV D5W 50 ML IV ONE (05:00)
--- NOTE | 2021-10-14 05:13 | NUR ---
URINE COLLECTED AND SENT TO LAB
--- NOTE | 2021-10-14 05:40 | NUR ---
ACCUCHECK 352
[2021-10-14 06:05] LABS: BILIRUBIN,URINE NEGATIVE (NEGATIVE); COLOR,URINE YELLOW (YELLOW); LEUKOCYTE ESTERASE ,URINE SMALL (NEGATIVE); NITRITE, URINE POSITIVE (NEGATIVE); PROTEIN,URINE 30 mg/dl (NEGATIVE); UGLUCOSE NEGATIVE (NEGATIVE); UROBILINOGEN,URINE 0.2 EU/dL (0.2)
--- NOTE | 2021-10-14 06:08 | NUR ---
JUNE VELASCO CALLED FOR MIDLINE
--- NOTE | 2021-10-14 06:09 | NUR ---
BP NOTED 72/41, MADE AWARE
[2021-10-14 06:10] LABS: ABG BASE EXCESS -16.1 mmol/L; ABG PCO2 46.9 mmHg (35.0-45.0); ABG PH 7.078 (7.350-7.450); ABG PO2 24.6 mmHg (75.0-100.0); COHb 0.3 % (0.5-1.5); MetHb 0.4 % (0.0-1.5); O2Hb 37.4 % (94.0-97.0); SITE, ABG Other; VENT MODE, BG Room Air
[2021-10-14] MEDS ORDERED: IV NS 0.9% 1,000 ML IV ONE (06:30)
[2021-10-14] MEDS ORDERED: Z GUARD REMEDY 4 OZ OINT TP PRN (06:30)
[2021-10-14] MEDS ORDERED: SODIUM POLYSTYRENE SULFONATE 15 G/60 ML BOTTLE PO ONE ×2 (06:30→10:00)
[2021-10-14] MEDS ORDERED: INSULIN REGULAR, HUMAN 100 UNITS in IV NS 0.9% 100 ML IV PRN ×2 (06:30)
[2021-10-14] MEDS ORDERED: IV NS 0.9% 1,000 ML IV PRN (06:30)
[2021-10-14] MEDS: BLOOD SUGAR DIAGNOSTIC 1 EACH STRIP IN SCH ×12 (06:47→18:31)
[2021-10-14 06:49] LABS: BILIRUBIN,DIRECT 0.1 mg/dL (0.0-0.2); BILIRUBIN,TOTAL 0.2 mg/dL (0.2-1.0)
--- NOTE | 2021-10-14 06:54 | NUR ---
LACTIC ACID 3.1
[2021-10-14] MEDS ORDERED: SODIUM POLYSTYRENE SULFONATE 15 G/60 ML BOTTLE ONE ×2 (07:13→11:42)
[2021-10-14 07:18] LABS: RBC,URINE 0-2 /HPF (0-2)
[2021-10-14 07:19] LABS: URINE AMORPHOUS URATE Few /HPF (None Seen)
[2021-10-14 07:20] LABS: BACTERIA,URINE Moderate /HPF (None Seen); SQUAMOUS EPITHELIAL CELL,UR Moderate /HPF (None Seen)
--- NOTE | 2021-10-14 07:20 | NUR ---
RECIVED PT FROM [facility] PT RESPONDED WHEN CALLED NAME RESPITION SOPNT AND EASY ON INSULIN DRIP AT 3.03UNIT/HR INFUSED AND PATENT MONITER ACCUCH Q1 HR WATING FOR ICU BED
[2021-10-14] MEDS ORDERED: METO-295 PO (07:23)
[2021-10-14] MEDS ORDERED: NA P133E RC (07:23)
[2021-10-14] MEDS ORDERED: DOCU-141 PO (07:23)
[2021-10-14] MEDS ORDERED: ONDA4TAB11 PO (07:23)
[2021-10-14] MEDS ORDERED: BISA10SU11 RC (07:23)
[2021-10-14] MEDS ORDERED: CRAN400C PO (07:23)
[2021-10-14] MEDS ORDERED: MULT-439 PO (07:23)
[2021-10-14] MEDS ORDERED: AMIN887L PO (07:23)
[2021-10-14] MEDS ORDERED: NICO-676 TD (07:23)
[2021-10-14 08:25] LABS: CALCIUM, SERUM 8.2 mg/dL (8.5-10.1); CREATININE 5.9 mg/dL (0.6-1.3); MAGNESIUM 1.3 mg/dL (1.8-2.4); PHOSPHORUS 7.1 mg/dL (2.5-4.9); POTASSIUM 5.6 mmol/L (3.5-5.1)
[2021-10-14] MEDS ORDERED: IV D5/ 0.9% NACL 1,000 ML IV PRN (08:30)
--- NOTE | 2021-10-14 08:45 | NUR ---
ACCUCHECK BG 209
[2021-10-14] MEDS: PANTOPRAZOLE 40 MG VIAL IV SCH (09:00)
[2021-10-14] MEDS: HEPARIN SODIUM, PORCINE 5000 UNITS/1 ML VIAL SQ SCH ×2 (09:00→22:19)
[2021-10-14 09:02] LABS: CALCIUM, SERUM 8.2 mg/dL (8.5-10.1); CREATININE 5.8 mg/dL (0.6-1.3); MAGNESIUM 1.3 mg/dL (1.8-2.4); PHOSPHORUS 6.4 mg/dL (2.5-4.9)
--- NOTE | 2021-10-14 09:28 | NUR ---
FOLLOW UP MIDLINE ETA WITH NURSE SUP OFFICE, WILL CALL ER BACK
[2021-10-14 09:55] LABS: POTASSIUM 6.3 mmol/L (3.5-5.1)
--- NOTE | 2021-10-14 09:57 | NUR ---
POTASSIUM 6.3, MD AWARE
[2021-10-14] MEDS ORDERED: NOREPINEPHRINE 8 MG in IV NS 0.9% 250 ML IV ONE (10:30)
[2021-10-14 11:19] LABS: CREATININE 5.5 mg/dL (0.6-1.3); MAGNESIUM 1.3 mg/dL (1.8-2.4); PHOSPHORUS 6.1 mg/dL (2.5-4.9)
--- NOTE | 2021-10-14 11:22 | NUR ---
BED GIVEN 258
[2021-10-14] MEDS ORDERED: HEPARIN SODIUM, PORCINE 5000 UNITS/1 ML VIAL ONE (11:42)
[2021-10-14] MEDS ORDERED: PANTOPRAZOLE 40 MG VIAL ONE (11:48)
[2021-10-14] MEDS ORDERED: NOREPINEPHRINE 8 MG in IV NS 0.9% 242 ML IV PRN (12:00)
--- NOTE | 2021-10-14 12:02 | NUR ---
RN NOTES PT IS NOT IN DKA, PER BOBO , ORDER RECEIVED TO D/FLORES INSULIN DRIP .
[2021-10-14 12:11] LABS: CALCIUM, SERUM 7.6 mg/dL (8.5-10.1)
--- NOTE | 2021-10-14 12:15 | NUR ---
INSERTED MED LINE ON LT UPPER ARM D/C INSULIN DRIP KAIT PT ADMITION FOR ICU
--- NOTE | 2021-10-14 13:00 | NUR ---
BLADIMIR AND PHILLY OBSERVE PT
[2021-10-14 13:23] LABS: ABG BASE EXCESS -12.5 mmol/L; ABG PCO2 41.3 mmHg (35.0-45.0); ABG PH 7.183 (7.350-7.450); ABG PO2 128.2 mmHg (75.0-100.0); COHb 0.3 % (0.5-1.5); MetHb 0.4 % (0.0-1.5); O2Hb 97.5 % (94.0-97.0); SITE, ABG Right Brachial
[2021-10-14] MEDS: PIPERACILLIN /TAZOBACTAM 2.25 G in IV D5W 50 ML IV SCH ×2 (13:47→22:04)
--- NOTE | 2021-10-14 14:05 | NUR ---
SATRTED PT ON D5W 1L + 2AMP 100ML NAHCO3 AT 80 ML /HR INFUSED AND PATENT
[2021-10-14] MEDS: Sodium Bicarbonate 100 MEQ in IV D5W 1,000 ML IV SCH (14:15)
--- NOTE | 2021-10-14 14:15 | NUR ---
PT UNSTABLE CLEAN PT CLOSTOMY BAG OPEN MATUTE AND CLEAN DONE KEEP PT WARM AND COMFORTABLE
--- NOTE | 2021-10-14 15:07 | NUR ---
BLOOD DROW FOR BMP FROM [facility]
[2021-10-14 15:59] LABS: CALCIUM, SERUM 7.7 mg/dL (8.5-10.1); POTASSIUM 5.1 mmol/L (3.5-5.1)
--- NOTE | 2021-10-14 16:09 | NUR ---
SOILA FOR [facility] BED CONTENUE AND MONITER PT ASHA
[2021-10-14] MEDS: IV NS 0.9% 1,000 ML IV PRN ×2 (16:31→22:03)
--- NOTE | 2021-10-14 16:35 | NUR ---
ABG DONE BY RT AND RESULTED SNDED TO DR Annette STRINGER PT IMPOVING RESPONDED TO TX CONTENUE NAHCO3 D5W 1L + 100ML NAHCO3 AT 80ML/HR
[2021-10-14 16:39] LABS: ABG BASE EXCESS -12.8 mmol/L; ABG PCO2 37.4 mmHg (35.0-45.0); ABG PH 7.202 (7.350-7.450); ABG PO2 117.9 mmHg (75.0-100.0); COHb 0.3 % (0.5-1.5); MetHb 0.4 % (0.0-1.5); O2Hb 97.3 % (94.0-97.0); SITE, ABG Left Radial
--- NOTE | 2021-10-14 17:26 | NUR ---
ILLIOSTOMY BAG 550ML GREEN COLOR AND URINE OUTPUT 850 ML YELLOW COLDY COLOR
[2021-10-14] MEDS ORDERED: DEXTROSE 50%-WATER 50 ML DISP.SYRIN IV PRN (18:00)
--- NOTE | 2021-10-14 18:20 | NUR ---
ACCUCHEDED DONE 379 NOLE PROVDER NOTEFY ORDER FOR SLIDING SCALE AND COVERGE DONE
[2021-10-14] MEDS: INSULIN REGULAR, HUMAN 100 UNIT/ML 3 ML VIAL SQ PRN (18:22)
--- NOTE | 2021-10-14 19:58 | NUR ---
HAND OFF NOVEMBER RN ILIOSTOMY OUT 650 ML
--- NOTE | 2021-10-14 20:09 | NUR ---
112-2 PER RN RUBY ON RAILS DEVELOPER.
--- NOTE | 2021-10-14 20:21 | NUR ---
TRIED CALLING FOR REPORT RN NOT READY.
--- NOTE | 2021-10-14 20:39 | NUR ---
report given to eduardo johnston
[2021-10-14 20:58] LABS: CALCIUM, SERUM 7.9 mg/dL (8.5-10.1); POTASSIUM 4.7 mmol/L (3.5-5.1)
--- NOTE | 2021-10-14 21:10 | NUR ---
RN NOTES ADMITTED A 66 Y/O FEMALE PATIENT FROM ER VIA [facility]. PATIENT IS A/O X2 WITH PERIODS OF CONFUSION. VITAL SIGNS TAKEN AND RECORDED AFEBRILE. WITH OXYGEN INHALATION AT 2 LPM VIA NASAL CANULA SATING AT 96%. NO SOB NO DISTRESS AT THIS TIME. WITH IV ACCESS AT L UA MIDLINE # 18 AND L AC # 20 PATENT FLUSHES WELL. WITH ONGOING IVF OF SODIUM BICARB @ 80 ML/HR. SAFELY TRANSFER PATIENT TO BED. WITH HUGHES CATHETER CONNECTED TO URINE BAG DRAINING YELLOWISH URINE. WITH ILEOSTOMY TUBE INTACT DRAINING GREENISH WATERY OUTPUT. BODY ASSESSMENT DONE. PICTURE TAKEN. ALL BELONGINGS CHECKED AND RECORDED. ALL SAFETY MEASURES IN PLACE AT ALL TIMES. HOB ELEVATED. CALL LIGHT WITHIN REACH. WILL CLOSELY MONITOR THE PATIENT.
--- NOTE | 2021-10-14 22:30 | NUR ---
RN NOTES PATIENT BLOOD PRESSURE 84/[address] GOMES INFORMED
[2021-10-15] VITALS (79 sets, daily range): BP systolic 67–124; BP diastolic 40–77
--- NOTE | 2021-10-15 | NUR ---
RN NOTES RECEIVED ORDER LR 500CC BOLUS.. BS CHECKED 251 MG/DL, 6 UNITS REGULAR INSULIN PER SLIDING SCALE GIVEN.
[2021-10-15 00:22] LABS: CALCIUM, SERUM 7.8 mg/dL (8.5-10.1); CREATININE 4.5 mg/dL (0.6-1.3); POTASSIUM 4.4 mmol/L (3.5-5.1)
[2021-10-15] MEDS: INSULIN REGULAR, HUMAN 100 UNIT/ML 3 ML VIAL SQ PRN ×3 (00:28→17:45)
--- NOTE | 2021-10-15 00:30 | NUR ---
RN NOTES PATIENT BP 90/60. WILL CONTINUE TO MONITOR THE PATIENT.
--- NOTE | 2021-10-15 00:40 | NUR ---
RN NOTES BP 81/[address] GOMES. WITH ORDER TO BOLUS ANOTHER LR 500CC. WILL CONTINUE TO MONITOR
[2021-10-15] MEDS: BLOOD SUGAR DIAGNOSTIC 1 EACH STRIP IN SCH ×4 (00:42→17:38)
[2021-10-15] MEDS ORDERED: IV LR 500 ML IV ONE ×2 (01:30)
[2021-10-15 02:34] LABS: CALCIUM, SERUM 7.7 mg/dL (8.5-10.1); CREATININE 4.5 mg/dL (0.6-1.3); POTASSIUM 4.1 mmol/L (3.5-5.1)
--- NOTE | 2021-10-15 02:55 | NUR ---
RN NOTES RELAYED BP 80/[address] GOMES WITH ORDER TO TRANSFER PATIENT TO ICU.
[2021-10-15] MEDS ORDERED: PHENYLEPHRINE 50 MG in IV NS 0.9% 245 ML IV PRN (03:00)
--- NOTE | 2021-10-15 03:00 | NUR ---
RN NOTES REPORT GIVEN TO [facility]. TRANSFER TO ICU VIA BED WITH ACLS PROTOCOL. PATIENT AWAKE. NO SOB NO DISTRESS NO CHEST PAIN.
[2021-10-15] MEDS ORDERED: PHENYLEPHRINE 10 MG/ML VIAL ONE (03:18)
--- NOTE | 2021-10-15 03:30 | NUR ---
ICU/RN: RECEIVED PT FROM [facility] REPORT FROM [facility]. TRANSFERRED TO ICU FOR HYPOTENSION. ADMINISTERED RITIKA-SYNEPHRINE ORDERED.
[2021-10-15] MEDS: PHENYLEPHRINE 50 MG in IV NS 0.9% 245 ML IV PRN ×2 (03:36→15:54)
[2021-10-15] MEDS: PIPERACILLIN /TAZOBACTAM 2.25 G in IV D5W 50 ML IV SCH ×3 (05:29→20:15)
[2021-10-15] MEDS: Sodium Bicarbonate 100 MEQ in IV D5W 1,000 ML IV SCH ×2 (05:29→17:38)
--- NOTE | 2021-10-15 05:30 | NUR ---
ICU/RN: REPORT TO GRICELDA EPPS FOR CONT OF CARE.
--- NOTE | 2021-10-15 07:30 | NUR ---
RN OPENING NOTE PT RECEIVED IN BED SLEEPING. PT IS ON 2L NC TOLERATING WELL 98%. PT IS A/OX2-3. FC IS IN PLACE DRAINING URINE TO GRAVITY. NPO AT THIS TIME. IV ACCESS L UA MID AND L AC 20 INFUSING WITH BICARB @0ML/HR, NS @100ML/HR AND RITIKA @1.2 MCG/HR. BED IS LOCKED IN LOWEST POSITION, CALL LIGHT IS WITHIN REACH AND ALL HOSPITAL SAFETY PROTOCOLS ARE IN PLACE. WILL CONTINUE TO MONITOR THIS SHIFT.
[2021-10-15 07:57] LABS: CALCIUM, SERUM 7.9 mg/dL (8.5-10.1); CREATININE 3.6 mg/dL (0.6-1.3); PHOSPHORUS 4.7 mg/dL (2.5-4.9); POTASSIUM 4.4 mmol/L (3.5-5.1)
[2021-10-15 08:20] LABS: MAGNESIUM 1.1 mg/dL (1.8-2.4)
[2021-10-15] MEDS: PANTOPRAZOLE 40 MG VIAL IV SCH (08:36)
[2021-10-15] MEDS: HEPARIN SODIUM, PORCINE 5000 UNITS/1 ML VIAL SQ SCH ×2 (08:41→21:17)
[2021-10-15] MEDS: Magnesium 1GM/D5W 100ML PREMIX PIGGYBACK IV SCH ×4 (09:07→13:05)
[2021-10-15 09:11] LABS: BASOPHILS % (AUTO) 0.5 % (0.0-2.0); EOSINOPHILS % (AUTO) 0.6 % (0.0-6.0); HEMATOCRIT 31 % (33-45); LYMPHOCYTES # (AUTO) 1.1 K/uL (0.8-4.8); LYMPHOCYTES % (AUTO) 15.3 % (20.0-44.0); MEAN CORPUSCULAR HGB CONC 33 g/dl (31.0-36.0); MEAN CORPUSCULAR VOLUME 78 fL (82-100); MONOCYTES # (AUTO) 0.9 K/uL (0.1-1.30); MONOCYTES % (AUTO) 12.9 % (2.0-12.0); NEUTROPHILS # (AUTO) 5.1 K/uL (1.8-8.9); NEUTROPHILS % (AUTO) 70.7 % (43.0-81.0); PLATELET COUNT (AUTO) 166 K/uL (150-450); RED BLOOD CELL COUNT(AUTO) 3.95 MIL/uL (4.0-5.2); WHITE BLOOD COUNT (AUTO) 7.2 K/uL (4.3-11.0)
[2021-10-15] MEDS: IV NS 0.9% 1,000 ML IV PRN ×2 (09:20→19:03)
[2021-10-15] MEDS: IV NS 0.9% 250 ML IV PRN (10:28)
--- NOTE | 2021-10-15 13:38 | NUR ---
RN NOTE: MICRO BLOOD CULTURE POSITIVE: GRAM + COCCI IN CLUSTERS
--- NOTE | 2021-10-15 18:53 | NUR ---
RN CLOSING NOTE PT IS IN BED. PT IS ON RA TOLERATING WELL 97%. PT IS A/OX2-3. FC IS IN PLACE DRAINING URINE TO GRAVITY. CONTINUES TO BE NPO AT THIS TIME. IV ACCESS L UA MID AND L AC 20 INFUSING WITH BICARB @80ML/HR, NS @100ML/HR AND RITIKA @1.1 MCG/HR. BED IS LOCKED IN LOWEST POSITION, CALL LIGHT IS WITHIN REACH AND ALL HOSPITAL SAFETY PROTOCOLS ARE IN PLACE. WILL ENDORSE TO KOSHER DIETARY SERVICE MANAGER NURSE FOR [facility].
[2021-10-15] MEDS ORDERED: DOXYCYCLINE 100 MG VIAL ONE (20:32)
[2021-10-15] MEDS: DOXYCYCLINE 100 MG in IV D5W 100 ML IV SCH (21:00)
[2021-10-15] MEDS: MORPHINE SULFATE INJ 2 MG/ML DISP.SYRIN IV PRN (22:41)
[2021-10-16] VITALS (28 sets, daily range): BP systolic 78–148; BP diastolic 52–98
[2021-10-16] MEDS: BLOOD SUGAR DIAGNOSTIC 1 EACH STRIP IN SCH ×5 (00:06→22:16)
[2021-10-16] MEDS: PIPERACILLIN /TAZOBACTAM 2.25 G in IV D5W 50 ML IV SCH (04:00)
[2021-10-16] MEDS: Sodium Bicarbonate 100 MEQ in IV D5W 1,000 ML IV SCH ×2 (04:30→16:21)
[2021-10-16] MEDS: IV NS 0.9% 1,000 ML IV PRN ×3 (04:30→14:00)
[2021-10-16 05:09] LABS: BASOPHILS % (AUTO) 0.2 % (0.0-2.0); EOSINOPHILS % (AUTO) 1.1 % (0.0-6.0); HEMATOCRIT 26 % (33-45); HEMOGLOBIN 8.6 g/dL (11.5-14.8); LYMPHOCYTES # (AUTO) 0.7 K/uL (0.8-4.8); LYMPHOCYTES % (AUTO) 33.8 % (20.0-44.0); MEAN CORPUSCULAR HGB CONC 33 g/dl (31.0-36.0); MEAN CORPUSCULAR VOLUME 77 fL (82-100); MONOCYTES # (AUTO) 0.3 K/uL (0.1-1.30); MONOCYTES % (AUTO) 16.5 % (2.0-12.0); NEUTROPHILS % (AUTO) 48.4 % (43.0-81.0); PLATELET COUNT (AUTO) 77 K/uL (150-450); RED BLOOD CELL COUNT(AUTO) 3.37 MIL/uL (4.0-5.2)
[2021-10-16 05:39] LABS: CREATININE 1.7 mg/dL (0.6-1.3)
[2021-10-16] MEDS: INSULIN REGULAR, HUMAN 100 UNIT/ML 3 ML VIAL SQ PRN ×4 (05:48→22:19)
--- NOTE | 2021-10-16 07:30 | NUR ---
RN OPENING NOTE PT IS SLEEPING IN BED. PT IS ON RA TOLERATING WELL 94%. PT IS A/OX2-3. FC IS IN PLACE DRAINING URINE TO GRAVITY. CONTINUES TO BE NPO AT THIS TIME. IV ACCESS L UA MID AND L AC 20 INFUSING WITH BICARB @80ML/HR, NS @100ML/HR. RITIKA DC'D DURING ARCHITECTURE INTERNSHIP AT 2330 CURRENT BP IS 102/57. BED IS LOCKED IN LOWEST POSITION, CALL LIGHT IS WITHIN REACH AND ALL HOSPITAL SAFETY PROTOCOLS ARE IN PLACE. WILL CONTINUE TO MONITOR THIS SHIFT.
[2021-10-16] MEDS: PANTOPRAZOLE 40 MG VIAL IV SCH (08:23)
[2021-10-16] MEDS: DOXYCYCLINE 100 MG in IV D5W 100 ML IV SCH ×2 (08:23→21:28)
[2021-10-16] MEDS: HEPARIN SODIUM, PORCINE 5000 UNITS/1 ML VIAL SQ SCH ×2 (09:00→09:03)
[2021-10-16 09:03] LABS: LYMPHOCYTES % (MANUAL) 33 % (16-48); MONOCYTES % (MANUAL) 16 % (0-11.0); NEUTROPHILS % (MANUAL) 51 (42-76)
[2021-10-16] MEDS: ONDANSETRON HCL/PF 4 MG/2 ML VIAL IVP PRN (09:25)
[2021-10-16] MEDS: MEROPENEM 500 MG in IV NS 0.9% 50 ML IV SCH ×2 (11:07→20:41)
[2021-10-16] MEDS ORDERED: POTASSIUM CL. PREMIX PERIPHER. 50 ML IV SCH (12:00)
[2021-10-16] MEDS: MORPHINE SULFATE INJ 2 MG/ML DISP.SYRIN IV PRN ×2 (12:43→20:41)
[2021-10-16 13:12] LABS: CALCIUM, SERUM 7.8 mg/dL (8.5-10.1); POTASSIUM 4.1 mmol/L (3.5-5.1)
[2021-10-16] MEDS: ACETAMINOPHEN 325 MG TABLET PO PRN (13:36)
--- NOTE | 2021-10-16 13:36 | NUR ---
RN NOTES ADMINISTERED TYLENOL 650 MG PO PRN FOR HEADACHE PER PATIENT REQUEST.
--- NOTE | 2021-10-16 18:30 | NUR ---
RN NOTE RECEIVED PATIENT DOWNGRADE FROM ICU ON TELE MONITORING ALERT ORIENTEDX3 VERBALLY RESPONSIVE ON ROOM AIR O2:99% IV SITE IS ON LEFT UPPER ARM AND LEFT AC INTACT PATENT ON IV BICARB 80CC/HR AND NS 100CC/HR,ILEOSTOMY ON RIGHT LOWER ABDOMEN ,HUGHES CATH IN PLACE URINE DRAINING YELLOW AND CLEAR BY GRAVITY,SAFETY MEASURE IMPLEMENT HEAD OF THE BED ELEVATED,CALL LIGHT WITHIN REACH CONTINUE TO MONITOR
--- NOTE | 2021-10-16 18:30 | NUR ---
RN NOTE PT STABLE AT THIS TIME AND TRANSFERRED TO #112/1 WITH ALL BELONGINGS AND MEDICATIONS. BEDSIDE REPORT GIVEN TO SUPRIYA RAYMOND.
--- NOTE | 2021-10-16 18:58 | NUR ---
RN NOTE PATIENT REMAINS ALERT ORIENTED X3 ON ROOM AIR NO SOB NOT ACUTE DISTRESS NOTED ENDORSE NEXT COMING SHIFT FOR CONTINUATION OF CARE.
--- NOTE | 2021-10-16 19:30 | NUR ---
UNIT STAFFING NEEDS Care endorsed to SUPRIYA Robbins.
--- NOTE | 2021-10-16 20:21 | NUR ---
ENDORSED PATIENT TO [facility] EPPS FOR CONTINUATION OF CARE, PATIENT IN STABLE CONDITION, ART ROOM AIR NO SOB/ACUTE DISTRESS NOTED.
[2021-10-16] MEDS ORDERED: HYDROCODONE/APAP 5/325MG TABLET PO PRN (20:30)
--- NOTE | 2021-10-16 20:30 | NUR ---
RN NOTE RECEIVED PATIENT IN BED, AWAKE, ALERT AND ABLE TO MAKE NEEDS KNOWN. ON TELE MONITORING. DENIES CHEST PAIN. BREATHING EVEN AND UNLABORED. DENIES CHEST PAIN. SKIN WARM AND DRY. NOTED WITH LEFT UPPER ARM MIDLINE, LEFT AC 20. CURRENTLY INFUSING NS AT 100 CC/HR AND BICARB IN D5W AT 80 CC/HR. NO INFILTRATION. NOTED WITH RIGHT LOWER ABDOMEN ILEOSTOMY. DRAINING GREEN RESIDUAL. PATIENT COMPLAINING OF GENERALIZED PAIN, STATES SHE HAS CHRONIC NERVE PAIN. INDWELLING HUGHES CATHETER INTACT. DRAINING YELLOW URINE BY GRAVITY. FOREHEAD BRUISES NOTED. NO BLEEDING AT THIS TIME. ASSISTED WITH TURNING AND REPOSITIONING. BED LOW, IN LOCKED POSITION, CALL LIGHT WITHIN REACH.
[2021-10-16] MEDS: TEMAZEPAM 7.5 MG CAPSULE PO PRN (23:13)
[2021-10-17] VITALS: BP 146/74
[2021-10-17] MEDS: IV NS 0.9% 1,000 ML IV PRN ×3 (00:09→23:14)
[2021-10-17] MEDS: MORPHINE SULFATE INJ 2 MG/ML DISP.SYRIN IV PRN ×4 (01:35→21:02)
[2021-10-17 04:00] VITALS: BP 130/74
[2021-10-17] MEDS: Sodium Bicarbonate 100 MEQ in IV D5W 1,000 ML IV SCH ×2 (04:11→17:55)
[2021-10-17] MEDS ORDERED: LORAZEPAM INJ 2 MG/ML VIAL IV ONE (04:30)
--- NOTE | 2021-10-17 04:32 | NUR ---
RN NOTE AT 2200, PATIENT WAS NOTED WITH AGITATION & IRRITABILITY, ANXIETY. STATES SHE COULD NOT SLEEP. INFORMED MD CIRCUS LABORER, ELISEO. NEW ORDER OF RESTORIL PRN WAS PLACED BY ELISEO HIMSELF. DOSE WAS ADMINISTERED TO PATIENT. INEFFECTIVE PATIENT WAS STILL AWAKE DURING REASSESSMENT. OFFERED PATIENT EXTRA BLANKETS. DIMMED LIGHTS. AT 0400, PATIENT WAS STILL IRRITABLE. ASKING ABOUT WHY HER VENLAFEXINE WAS D/C'D. PATIENT STATES SHE BELIEVE SHE WAS HAVING WITHDRAWAL FROM THIS MEDICATION. PATIENT STATES SHE WANTS MEDICATION NOW TO CALM HER DOWN. INFORMED ELISEO, PER MD, RESUME SAME HOME MED EFFEXOR & 1 MG ATIVAN IV ONCE. NEW ORDER NOTED AND CARRIED OUT.
[2021-10-17] MEDS: INSULIN REGULAR, HUMAN 100 UNIT/ML 3 ML VIAL SQ PRN ×2 (06:04→12:30)
[2021-10-17] MEDS: BLOOD SUGAR DIAGNOSTIC 1 EACH STRIP IN SCH ×3 (06:04→17:49)
[2021-10-17 06:29] LABS: BASOPHILS % (AUTO) 0.4 % (0.0-2.0); HEMATOCRIT 27 % (33-45); HEMOGLOBIN 9.1 g/dL (11.5-14.8); LYMPHOCYTES # (AUTO) 0.6 K/uL (0.8-4.8); LYMPHOCYTES % (AUTO) 36.3 % (20.0-44.0); MEAN CORPUSCULAR HGB CONC 34 g/dl (31.0-36.0); MEAN CORPUSCULAR VOLUME 76 fL (82-100); MONOCYTES # (AUTO) 0.2 K/uL (0.1-1.30); MONOCYTES % (AUTO) 13.6 % (2.0-12.0); NEUTROPHILS # (AUTO) 0.8 K/uL (1.8-8.9); NEUTROPHILS % (AUTO) 47.7 % (43.0-81.0); PLATELET COUNT (AUTO) 72 K/uL (150-450)
[2021-10-17 06:47] LABS: CALCIUM, SERUM 7.8 mg/dL (8.5-10.1)
[2021-10-17 07:25] LABS: WHITE BLOOD COUNT (AUTO) 1.8 K/uL (4.3-11.0)
--- NOTE | 2021-10-17 07:30 | NUR ---
RN NOTES PT FOUND SUPINE, APPEARS TO BE SLEEPING, DISPLAYING NO S/S OF ACUTE DISTRESS, FLACC = 0 AND PT IS BREATHING EVEN AND UNLABORED ON RA. L UA ML IS PATIENT AND INTACT. ILEOSTOMY BAG FORMING SEAL AROUND STOMA. PT MOVED FROM ROOM 112-2 TO ROOM 106 FOR NEUTROPENIC PRECAUTIONS. HUGHES CATH BELOW PATIENT DRAINING BY GRAVITY. CONTINUE PLAN OF CARE AND ANTICIPATE NEEDS. SAFETY MEASURES IN PLACE, BED LOCKED AND IN LOWEST POSITION, SIDE RAILS UPX2, CALL LIGHT WITHIN REACH, BED ALARM ARMED.
[2021-10-17 07:52] LABS: POTASSIUM 2.6 mmol/L (3.5-5.1)
--- NOTE | 2021-10-17 08:00 | NUR ---
RN NOTE PATIENT REFUSED 0800 VITALS SIGNS.
[2021-10-17] MEDS: HEPARIN SODIUM, PORCINE 5000 UNITS/1 ML VIAL SQ SCH ×2 (09:00→21:00)
[2021-10-17] MEDS: PANTOPRAZOLE 40 MG VIAL IV SCH (09:22)
[2021-10-17] MEDS: DOXYCYCLINE 100 MG in IV D5W 100 ML IV SCH (09:25)
[2021-10-17] MEDS: VENLAFAXINE XR 75 MG CAP.SR.24H PO SCH (09:26)
[2021-10-17] MEDS: MEROPENEM 500 MG in IV NS 0.9% 50 ML IV SCH (09:28)
[2021-10-17] MEDS: POTASSIUM CL. PREMIX PERIPHER. 50 ML IV SCH ×3 (09:29→12:32)
[2021-10-17 09:49] LABS: EOSINOPHILS % (MANUAL) 4 % (0-4); LYMPHOCYTES % (MANUAL) 37 % (16-48); MONOCYTES % (MANUAL) 13 % (0-11.0); NEUTROPHILS % (MANUAL) 46 (42-76)
[2021-10-17 12:00] VITALS: BP 131/69
[2021-10-17] MEDS: ACETAMINOPHEN 325 MG TABLET PO PRN (12:01)
--- NOTE | 2021-10-17 13:18 | NUR ---
RN NOTE IV POTASSIUM STOPPED. HAD CONVERSATION ON THE BENEFITS OF POTASSIUM, AND THE POSSIBLE CONSEQUENCES OF STOPPING INFUSION. PATIENT VERBALIZED UNDERSTANDING AND STILL WANTED TO STOP INFUSION, SAYING 'IT IS MY DECISION TO MAKE...' WILL CONTINUE PLAN OF CARE AND ANTICIPATE NEEDS.
--- NOTE | 2021-10-17 14:20 | NUR ---
MD COMMUNICATION RN SPOKE TO DR BROUSSARD ABOUT PT INTOLERANCE OF IV K+, PAIN MANAGEMENT AND ANXIETY MANAGEMENT. MD GAVE ORDERS: GIVE 80 mEq K DUR PO ONE TIME PER PHARMACY PROTOCOL, STOP K+ IV, RENEW ATIVAN 1 MG PRN ANXIETY AND MAINTAIN CURRENT PRN MAIN MANAGEMENT. Addendum: 10/17/21 at 1430 by STACY MAC RN MD ALSO GAVE ORDERS: START CLEAR LIQUID DIET AND ADVANCE TOLERATED TO GOAL OF CCHO DIET.
--- NOTE | 2021-10-17 14:25 | NUR ---
MD COMMUNICATION RN INFORMED DR BROUSSARD THAT ONLY APPROXIMATELY 75 ML POTASSIUM CHLORIDE WAS GIVEN TO PT WHICH IS APPROXIMATELY 15 MEQ. MD ACKNOWLEDGED AND MAINTAINED ORDERS OF 80 MEQ PO. RN WAS UNABLE TO UNDO 3RD SCAN DUE TO IT BEING DISCONTINUED.
[2021-10-17] MEDS ORDERED: POTASSIUM CHLORIDE 20 MEQ TAB.PRT.SR PO ONE (14:50)
[2021-10-17] MEDS: POTASSIUM CHLORIDE 20 MEQ TAB.PRT.SR PO SCH ×4 (15:04→18:07)
[2021-10-17] MEDS: FLUCONAZOLE (100 MG) 100 MG TABLET PO SCH (15:04)
[2021-10-17 16:00] VITALS: BP 148/73
--- NOTE | 2021-10-17 19:25 | NUR ---
RN NOTES PT FOUND SEMI FOWLERS DISPLAYING NO S/S OF DISTRESS, PT CURRENTLY ENDORSES NO PAIN AND IS BREATHING EVEN AND UNLABORED ON RA. L UA ML IS PATIENT AND INTACT. ILEOSTOMY BAG FORMING SEAL AROUND STOMA, BAG CHANGED MID SHIFT. HUGHES CATH BELOW PATIENT DRAINING BY GRAVITY. SBAR AND REPORT GIVEN TO CORPSMAN RN, ALL QUESTIONS ANSWERED. SAFETY MEASURES IN PLACE, BED LOCKED AND IN LOWEST POSITION, SIDE RAILS UPX2, CALL LIGHT WITHIN REACH, BED ALARM ARMED. PT ENDORSED IN STABLE CONDITION FOR CHANA.
[2021-10-17 20:00] VITALS: BP 136/85
[2021-10-17] MEDS: GABAPENTIN 300 MG CAPSULE PO SCH (21:00)
[2021-10-17] MEDS: METRONIDAZOLE 500 MG TABLET PO SCH (21:01)
--- NOTE | 2021-10-17 21:11 | NUR ---
RN NOTE PT AWAKE ALERT AND ORIENTED X 4. NOT IN ANY DISTRESS. PT COMPLAINED OF NERVE PAIN, WHICH PT STATED ITS CHRONIC AND MORPHINE DOES ONLY HELP SOMEWHAT, REQUESTED FOR NORCO. NOTIFIED GLASS TINTER CHRISTINA GOMES. PT WITH POLST SIGNED BY PT SHOWING DNR/DNI, VERIFIED WITH PT AND WITH CHARGE NURSE. NA BICARB DISCONTINUED PER ORDER, CONTINUE WITH NS AT 100ML/HR. PT ON CLEAR LIQUID DIET. COLOSTOMY BAG LEAKING, NOTED WITH WATERY STOOL. CHANGED BAG. WILL CONTINUE TO MONITOR/
--- NOTE | 2021-10-17 21:15 | NUR ---
RN NOTE PT REFUSED GABAPENTIN, EXPLAINED RISKS AND BENEFITS, VERBALIZES UNDERSTANDING. HELD HEPARIN DOSE DUE TO LOW PLATELETS. NO ACTIVE BLEEDING NOTED.
[2021-10-17] MEDS: TEMAZEPAM 7.5 MG CAPSULE PO PRN (22:10)
[2021-10-18] VITALS: BP 130/71
[2021-10-18] MEDS: HYDROCODONE/APAP 5/325MG TABLET PO PRN ×2 (00:17→11:16)
[2021-10-18] MEDS: BLOOD SUGAR DIAGNOSTIC 1 EACH STRIP IN SCH ×4 (00:27→17:24)
[2021-10-18] MEDS: INSULIN REGULAR, HUMAN 100 UNIT/ML 3 ML VIAL SQ PRN ×2 (00:29→12:36)
[2021-10-18] MEDS: MORPHINE SULFATE INJ 2 MG/ML DISP.SYRIN IV PRN ×3 (03:22→20:07)
[2021-10-18 04:00] VITALS: BP 115/64
[2021-10-18] MEDS: METRONIDAZOLE 500 MG TABLET PO SCH ×3 (05:39→20:07)
--- NOTE | 2021-10-18 07:23 | NUR ---
RN NOTE PT SLEEPING, AROUSES EASILY. DENIES PAIN AT THIS TIME. NO SOB NOTED. NEEDS ATTENDED. COLOSTOMY BAG CHANGED TWICE, WATERY STOOL. HUGHES DRAINING WELL. CONTINUE WITH NS AT 100ML/HR. WILL ENDORSE TO NEXT SHIFT NURSE FOR CHANA.
--- NOTE | 2021-10-18 07:30 | NUR ---
SPECIAL SYSTEMS TECHNICIAN AM NOTE PT AWAKE ALERT AND ORIENTED X 4. ON ROOM AIR, O2 SAT AT 97%. NOT IN ANY DISTRESS. RESPIRATION UNLABORED. SR WITH HR 78 ON MONITOR. DENIES CHEST PAIN OR DISCOMFORT. HORTENCIA MIDLINE WITH NS AT 100 ML/HR INFUSING WELL, LEFT AC 20G FLUSHES WELL, BOTH SITES CLEAR. ON CLEAR LIQUID DIET. WILL ADVANCE DIET TOLERATED. GOAL CCHO DIET. ILEOSTOMY IN PLACE, DRAINING DARK BLACKISH RED/ LIQUID STOOL. WITH HUGHES CATH IN PLACE WITH YELLOW URINE OUTPUT. ALL SAFETY PRECAUTIONS IN PLACE. BED LOCKED IN LOWEST POSITION, BED ALARM ON. CALL LIGHT WITHIN REACH. WILL TURN AND REPOSITION Q 2 HOURS. WILL CONTINUE TO MONITOR.
[2021-10-18 08:00] VITALS: BP 127/64
[2021-10-18 08:52] LABS: BASOPHILS % (AUTO) 0.9 % (0.0-2.0); EOSINOPHILS % (AUTO) 2.6 % (0.0-6.0); HEMATOCRIT 29 % (33-45); HEMOGLOBIN 9.5 g/dL (11.5-14.8); LYMPHOCYTES # (AUTO) 0.5 K/uL (0.8-4.8); LYMPHOCYTES % (AUTO) 29.6 % (20.0-44.0); MEAN CORPUSCULAR HGB CONC 33 g/dl (31.0-36.0); MEAN CORPUSCULAR VOLUME 77 fL (82-100); MONOCYTES # (AUTO) 0.2 K/uL (0.1-1.30); MONOCYTES % (AUTO) 13.1 % (2.0-12.0); NEUTROPHILS # (AUTO) 0.9 K/uL (1.8-8.9); NEUTROPHILS % (AUTO) 53.8 % (43.0-81.0); PLATELET COUNT (AUTO) 82 K/uL (150-450); RED BLOOD CELL COUNT(AUTO) 3.75 MIL/uL (4.0-5.2)
[2021-10-18] MEDS: HEPARIN SODIUM, PORCINE 5000 UNITS/1 ML VIAL SQ SCH ×2 (09:00→22:00)
[2021-10-18 09:15] LABS: WHITE BLOOD COUNT (AUTO) 1.7 K/uL (4.3-11.0)
[2021-10-18 09:18] LABS: CALCIUM, SERUM 7.7 mg/dL (8.5-10.1); CREATININE 0.8 mg/dL (0.6-1.3); POTASSIUM 3.5 mmol/L (3.5-5.1)
[2021-10-18] MEDS: VENLAFAXINE XR 75 MG CAP.SR.24H PO SCH (09:33)
--- NOTE | 2021-10-18 09:35 | NUR ---
RN NOTES DUE MEDS GIVEN DR. ZIMMERMAN AT BEDSIDE. - RELAYED PER GPS MD, PT NEEDS PET TEAM FOR HOLD TO GO TO GPS D/T SUICIDAL IDEATION D/T PAIN. ALSO PER MD, OK TO HOLD LOVENOX FOR NOW D/T LOW PLATELET COUNT.
--- NOTE | 2021-10-18 09:35 | NUR ---
RN NOTES ADMINISTERED MORPHINE SULFATE 2 MG, SCANNED BUT DID NOT SAVED.
[2021-10-18] MEDS: GABAPENTIN 300 MG CAPSULE PO SCH ×3 (09:36→17:28)
[2021-10-18] MEDS: FLUCONAZOLE (100 MG) 100 MG TABLET PO SCH (09:36)
[2021-10-18] MEDS: PANTOPRAZOLE 40 MG TABLET.DR PO SCH (09:36)
--- NOTE | 2021-10-18 09:45 | NUR ---
RN NOTES ROQUE NURSING GROOMING SALON MANAGER. SPOKE WITH MARIA FERNANDA BAIRD AND RAMSES SQUIRES FOR GPS REGARDING PATIENT NEEDS TO BE EVALUATED BY PSYCH.
[2021-10-18] MEDS: IV NS 0.9% 1,000 ML IV PRN ×2 (10:17→23:46)
[2021-10-18 12:00] VITALS: BP 130/72
[2021-10-18 12:03] LABS: EOSINOPHILS % (MANUAL) 4 % (0-4); LYMPHOCYTES % (MANUAL) 29 % (16-48); MONOCYTES % (MANUAL) 12 % (0-11.0); NEUTROPHILS % (MANUAL) 55 (42-76)
[2021-10-18 16:00] VITALS: BP 137/90
--- NOTE | 2021-10-18 19:36 | NUR ---
BSA OFFICER CLOSING NOTE PT RESTING IN BED, AWAKE ALERT AND ORIENTED X 4. ON ROOM AIR, O2 SAT AT 96%. NOT IN ANY DISTRESS. RESPIRATION UNLABORED. SR WITH HR 78 ON MONITOR. DENIES CHEST PAIN OR DISCOMFORT. HORTENCIA MIDLINE WITH NS AT 100 ML/HR INFUSING WELL, LEFT AC 20G FLUSHES WELL, BOTH SITES CLEAR. ON SOFT CCHO DIET. ILEOSTOMY IN PLACE, DRAINING DARK BLACKISH RED/ LIQUID STOOL, TOTAL OUTPUT OF 1100. WITH HUGHES CATH IN PLACE WITH TOTAL OUTPUT OF 1800 YELLOW URINE. ALL SAFETY PRECAUTIONS IN PLACE. BED LOCKED IN LOWEST POSITION, BED ALARM ON. CALL LIGHT WITHIN REACH. INDEPENDENT OF BED MOBILITY. MODERATE ASSIST. PM CARE DONE EARLIER. ALL NEEDS MET AT THIS TIME. WILL ENDORSE TO NEXT SHIFT FOR CHANA. NPO POST MN FOR US OF ABDOMEN IN AM
[2021-10-18 20:00] VITALS: BP 134/72
--- NOTE | 2021-10-18 20:15 | NUR ---
RN NOTE RECEIVED PT IN BED, AWAKE, AOX4. NOT IN ANY DISTRESS. COLOSTOMY BAG LEAKING, CHANGED. PT COMPLAINED OF 10/10 GENERALIZED PAIN, REQUESTED FOR MORPHINE IVP. GIVEN ORDERED. HUGHES DRAINING CLEAR URINE OUTPUT. ON NS AT 100ML/HR. PT TO BE NPO AT MIDNIGHT, PT VERBALIZES UNDERSTANDING. WILL CONTINUE TO MONITOR.
[2021-10-18 20:18] LABS: C-REACTIVE PROTEIN 0.8 mg/dL (0.0-0.9); THYROID STIMULATING HORMONE 0.025 uIU/mL (0.358-3.74)
[2021-10-18 20:29] LABS: ALBUMIN 2.7 g/dL (3.4-5.0); BILIRUBIN,DIRECT 0.1 mg/dL (0.0-0.2); BILIRUBIN,TOTAL 0.2 mg/dL (0.2-1.0); TOTAL PROTEIN, SERUM 6.9 g/dL (6.4-8.2)
[2021-10-18] MEDS: MORPHINE SULFATE SR 15 MG TABLET.SA PO SCH (22:12)
[2021-10-18] MEDS: TEMAZEPAM 7.5 MG CAPSULE PO PRN (23:48)
[2021-10-19] VITALS: BP 129/68
[2021-10-19] MEDS: BLOOD SUGAR DIAGNOSTIC 1 EACH STRIP IN SCH ×4 (00:04→17:07)
[2021-10-19] MEDS: INSULIN REGULAR, HUMAN 100 UNIT/ML 3 ML VIAL SQ PRN ×4 (00:07→17:08)
[2021-10-19] MEDS: MORPHINE SULFATE INJ 2 MG/ML DISP.SYRIN IV PRN ×4 (00:44→15:25)
[2021-10-19] MEDS: HYDROCODONE/APAP 5/325MG TABLET PO PRN (02:23)
--- NOTE | 2021-10-19 02:29 | NUR ---
RN NOTE PT COMPLAINS OF UNRELIEVED PAIN BILATERAL LOWER LEG. REPOSITIONED DONE, PROVIDED WARM BLANKET. NORCO GIVEN ORDERED. WILL CONTINUE TO MONITOR.
[2021-10-19 04:00] VITALS: BP 114/71
[2021-10-19] MEDS: METRONIDAZOLE 500 MG TABLET PO SCH (05:30)
--- NOTE | 2021-10-19 07:11 | NUR ---
RN NOTE PT COMPLAINED OF GENERALIZED NERVE PAIN, REQUESTED FOR MORPHINE, GIVEN ORDERED. CONTINUE ON NS AT 100ML/HR. INFUSING WELL. COLOSTOMY BAG INTACT, WITH 1100 OUTPUT WATERY STOOL. HUGHES DRAINING WELL. PT SEEN BY DR LONGO LAST NIGHT WITH NEW MED ORDERED. ENDORSED TO NEXT SHIFT NURSE FOR CHANA
--- NOTE | 2021-10-19 07:34 | NUR ---
RN OPENING NOTE PATIENT RECEIVED IN BED, RESTING. PATIENT ON ROOM AIR WITH NO SIGNS OF LABORED BREATHING AT THIS TIME. OSTOMY BAG IN PLACE, HUGHES CATH IN PLACE. PT NPO AT THIS TIME FOR ABD US. LEFT UA MIDLINE AND LEFT AC 20G IN PLACE RUNNING NS AT 100CC/HR. BED LOCKED AND IN LOWEST POSITION, CALL LIGHT WITHIN REACH, 3 SIDE RAILS UP.
[2021-10-19 07:38] LABS: BASOPHILS % (AUTO) 0.5 % (0.0-2.0); HEMATOCRIT 31 % (33-45); HEMOGLOBIN 9.8 g/dL (11.5-14.8); LYMPHOCYTES # (AUTO) 0.6 K/uL (0.8-4.8); LYMPHOCYTES % (AUTO) 29.8 % (20.0-44.0); MEAN CORPUSCULAR HGB CONC 32 g/dl (31.0-36.0); MEAN CORPUSCULAR VOLUME 80 fL (82-100); MONOCYTES # (AUTO) 0.2 K/uL (0.1-1.30); MONOCYTES % (AUTO) 11.3 % (2.0-12.0); NEUTROPHILS # (AUTO) 1.1 K/uL (1.8-8.9); NEUTROPHILS % (AUTO) 55.4 % (43.0-81.0); RED BLOOD CELL COUNT(AUTO) 3.86 MIL/uL (4.0-5.2); WHITE BLOOD COUNT (AUTO) 2.1 K/uL (4.3-11.0)
[2021-10-19 07:56] LABS: PLATELET COUNT (AUTO) 28 K/uL (150-450)
[2021-10-19 08:00] VITALS: BP 127/73
[2021-10-19] MEDS: HEPARIN SODIUM, PORCINE 5000 UNITS/1 ML VIAL SQ SCH ×2 (08:03→21:00)
--- NOTE | 2021-10-19 08:03 | NUR ---
RN NOTE PLT 28. DR. ZIMMERMAN AT BEDSIDE, MADE AWARE. PER , NOTIFY DR. EATON AND HOLD HEPARIN.
[2021-10-19] MEDS: FLUCONAZOLE (100 MG) 100 MG TABLET PO SCH (08:04)
[2021-10-19] MEDS: VENLAFAXINE XR 75 MG CAP.SR.24H PO SCH (08:04)
[2021-10-19] MEDS: LITHIUM CARBONATE (300 MG CAP) 300 MG CAPSULE PO SCH ×2 (08:04→21:00)
[2021-10-19] MEDS: PANTOPRAZOLE 40 MG TABLET.DR PO SCH (08:05)
[2021-10-19] MEDS: MORPHINE SULFATE SR 15 MG TABLET.SA PO SCH ×2 (08:05→22:10)
[2021-10-19] MEDS: GABAPENTIN 300 MG CAPSULE PO SCH ×3 (08:05→16:03)
--- NOTE | 2021-10-19 08:45 | NUR ---
WOUND CARE CONSULT: PT PRESENTS WITH OPEN AREA TO INCISION ON ABDOMEN, AND SACRAL SCAR PRESENT ON ADMISSION. DR AHSAN RODRIGUEZ NOTIFIED OF SURGICAL CONSULT REQUEST. PT IS CONTINENT WITH ILEOSTOMY AND IS INDEPENDENT WITH BED MOBILITY. MD IN AGREEMENT WITH PLAN OF CARE.
[2021-10-19] MEDS: IV NS 0.9% 1,000 ML IV PRN ×2 (09:46→18:36)
[2021-10-19 11:08] LABS: EOSINOPHILS % (MANUAL) 2 % (0-4); LYMPHOCYTES % (MANUAL) 35 % (16-48); MONOCYTES % (MANUAL) 7 % (0-11.0); NEUTROPHILS % (MANUAL) 56 (42-76)
--- NOTE | 2021-10-19 11:18 | NUR ---
RN NOTE SPECIAL EVENT ASSISTANT GAYATHRI WORKING WITH DR. EATON NOTIFIED OF PLT, INR AND PT VALUE.
[2021-10-19 11:32] LABS: ABG BASE EXCESS -2.5 mmol/L; ABG OXYGEN SATURATION 96.6 % (92.0-98.5); ABG PCO2 31.4 mmHg (35.0-45.0); ABG PH 7.442 (7.350-7.450); ABG PO2 89.5 mmHg (75.0-100.0); AaDO2 22.6 mmHg; COHb 0.3 % (0.5-1.5); MetHb 0.2 % (0.0-1.5); O2Hb 96.1 % (94.0-97.0); SITE, ABG Left Radial; VENT MODE, BG 21% RA
[2021-10-19 12:00] VITALS: BP 128/76
[2021-10-19] MEDS ORDERED: diphenhydrAMINE HCL 50 MG/ML VIAL IV ONE ×2 (12:00→18:00)
[2021-10-19] MEDS ORDERED: PHYTONADIONE INJ 10 MG/1 ML AMPUL SQ SCH (12:00)
[2021-10-19] MEDS ORDERED: ACETAMINOPHEN 325 MG TABLET PO ONE ×2 (12:00→18:00)
[2021-10-19] MEDS: HYDROCODONE/APAP 10/325MG TABLET PO PRN (13:52)
[2021-10-19 15:03] LABS: D-DIMER 2.79 mg/L(FEU (0.17-0.50)
[2021-10-19 16:00] VITALS: BP 144/70
[2021-10-19] MEDS: FERROUS SULFATE (325 MG) 325 MG/TAB TABLET PO SCH (16:03)
[2021-10-19] MEDS ORDERED: LIDOCAINE 1% INJ 50 ML MDV IJ ONE (18:00)
--- NOTE | 2021-10-19 18:42 | NUR ---
RN CLOSING NOTE PATIENT REMAINS IN BED, RESTING. PATIENT ON ROOM AIR WITH NO SIGNS OF LABORED BREATHING AT THIS TIME. OSTOMY BAG IN PLACE. LEFT UA MIDLINE AND LEFT AC 20G IN PLACE RUNNING NS AT 100CC/HR. ALL NEEDS ATTENDED DURING SHIFT. NO SIGNS OF ACUTE DISTRESS NOTED. BED LOCKED AND IN LOWEST POSITION, CALL LIGHT WITHIN REACH, 3 SIDE RAILS UP. WILL ENDORSE TO BONE TENDER NURSE.
[2021-10-19 20:00] VITALS: BP 139/91
--- NOTE | 2021-10-19 20:30 | NUR ---
rock star Opening Note Pt received in bed, awake, A&O x4, calm, cooperative. Pt on RA in no apparent resp distress, no SOB, non-labored and equal breathing; appears comfortable. Pt attached to external monitor, SR with HR 90. Pt noted to have HORTENCIA midline and LAC 20G both intact and patent; NS running at 100 ml/hr. Bed in lowest position, call light within reach, side rails up x2. Will continue to monitor throughout the night
--- NOTE | 2021-10-19 21:00 | NUR ---
RN Note Heparin 5000 units held per MD order due to plt count of 28.
--- NOTE | 2021-10-19 22:18 | NUR ---
RN Note Pt refused lithium carbonate 300 mg.
[2021-10-19] MEDS: TEMAZEPAM 7.5 MG CAPSULE PO PRN (22:36)
[2021-10-20] VITALS (14 sets, daily range): BP systolic 120–149; BP diastolic 58–89
[2021-10-20] MEDS: BLOOD SUGAR DIAGNOSTIC 1 EACH STRIP IN SCH ×5 (00:40→23:59)
[2021-10-20] MEDS: INSULIN REGULAR, HUMAN 100 UNIT/ML 3 ML VIAL SQ PRN ×4 (00:46→23:59)
[2021-10-20] MEDS: MORPHINE SULFATE INJ 2 MG/ML DISP.SYRIN IV PRN ×3 (01:22→18:51)
--- NOTE | 2021-10-20 01:27 | NUR ---
RN Note Pt complains of 8/10 abdominal pain that's described as a sharp pain. Pt given morphine 2 mg PRN severe pain. Will monitor for effectiveness.
[2021-10-20] MEDS: LORAZEPAM INJ 2 MG/ML VIAL IV PRN ×2 (01:57→18:56)
--- NOTE | 2021-10-20 02:04 | NUR ---
RN Note Pt complains of feeling anxious and presents to be crying. Pt requests for medicine to help her calm down. Pt given Ativan 1 mg PRN anxiety. Will monitor for effectiveness.
[2021-10-20] MEDS: IV NS 0.9% 1,000 ML IV PRN (05:42)
--- NOTE | 2021-10-20 06:11 | NUR ---
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 Pt on RA no resp distress, no SOB, non-labored and equal breathing; appears comfortable with O2sat ranging from 96%-98% throughout the night. Pt attached to external monitor, SR with HR 95. Pt's HORTENCIA midline remains intact and patent; NS continues to run at 100 ml/hr. All due meds and fluids administered during the night. Bed in lowest position, call light within reach, side rails up x2. Will endorse to dayshift nurse to continue care.
--- NOTE | 2021-10-20 07:35 | NUR ---
RN OPENING NOTE PATIENT RECEIVED IN BED, RESTING. PATIENT ON ROOM AIR TOLERATING WELL WITH SATURATION OF 97%. WITH NO SIGNS OF ANY RESPIRATORY DISTRESS NOTED AT THE TIME. BREATHING EVEN AND UNLABORED. OSTOMY BAG IN PLACE, HUGHES CATH IN PLACE. WITH IV ACCESS ON LEFT UA MIDLINE AND LEFT AC 20G IN PLACE INFUSING NS AT 100CC/HR. ALL SAFETY MEASURES IN PLACE, BED LOCKED AND IN LOWEST POSITION, CALL LIGHT WITHIN REACH, 3 SIDE RAILS UP. BED ALARM ON. WILL CONTINUE TO MONITOR PATIENT AND ASSESS PATIENT FOR ANY CHANGES DURING SHIFT.
[2021-10-20] MEDS: FERROUS SULFATE (325 MG) 325 MG/TAB TABLET PO SCH ×2 (08:51→17:27)
[2021-10-20] MEDS: VENLAFAXINE XR 75 MG CAP.SR.24H PO SCH (08:51)
[2021-10-20] MEDS: FLUCONAZOLE (100 MG) 100 MG TABLET PO SCH (08:51)
[2021-10-20] MEDS: MORPHINE SULFATE SR 15 MG TABLET.SA PO SCH ×2 (08:51→21:07)
[2021-10-20] MEDS: FOLIC ACID 1 MG TABLET PO SCH (08:51)
[2021-10-20] MEDS: HEPARIN SODIUM, PORCINE 5000 UNITS/1 ML VIAL SQ SCH ×2 (08:53→21:00)
[2021-10-20] MEDS: GABAPENTIN 300 MG CAPSULE PO SCH ×3 (08:53→17:00)
[2021-10-20] MEDS: LITHIUM CARBONATE (300 MG CAP) 300 MG CAPSULE PO SCH ×2 (08:55→21:00)
[2021-10-20 11:07] LABS: IMMUNOGLOBULIN A, SERUM 433 mg/dL (87-352); IMMUNOGLOBULIN G, SERUM 1271 mg/dL (586-1602); IMMUNOGLOBULIN M, SERUM 135 mg/dL (26-217)
[2021-10-20 11:38] LABS: BASOPHILS % (AUTO) 0.7 % (0.0-2.0); EOSINOPHILS % (AUTO) 2.3 % (0.0-6.0); HEMATOCRIT 30 % (33-45); HEMOGLOBIN 9.6 g/dL (11.5-14.8); LYMPHOCYTES # (AUTO) 0.8 K/uL (0.8-4.8); LYMPHOCYTES % (AUTO) 23.8 % (20.0-44.0); MEAN CORPUSCULAR HGB CONC 32 g/dl (31.0-36.0); MEAN CORPUSCULAR VOLUME 79 fL (82-100); MONOCYTES # (AUTO) 0.3 K/uL (0.1-1.30); MONOCYTES % (AUTO) 10.2 % (2.0-12.0); PLATELET COUNT (AUTO) 80 K/uL (150-450); RED BLOOD CELL COUNT(AUTO) 3.76 MIL/uL (4.0-5.2); WHITE BLOOD COUNT (AUTO) 3.2 K/uL (4.3-11.0)
[2021-10-20 12:17] LABS: D-DIMER 3.41 mg/L(FEU (0.17-0.50)
--- NOTE | 2021-10-20 13:50 | NUR ---
RN NOTE COMPLETED TRANSFUSION OF FROZEN PLASMA, TOLERATED WELL. NO ADVERSE REACTIONS NOTED. POST TRANSFUSION VITAL SIGNS: TEMP-98.0, HR-84, RR-20, O2-98%, BP-147/80. NO SOB OR ANY ACUTE DISTRESS NOTED AT THE TIME. ALL NEEDS ANTICIPATED. ALL SAFETY MEASURES IMPLEMENTED. CALL LIGHT WITHIN REACH.
[2021-10-20] MEDS: ONDANSETRON HCL/PF 4 MG/2 ML VIAL IVP PRN (16:02)
[2021-10-20] MEDS: HYDROCODONE/APAP 5/325MG TABLET PO PRN (17:27)
--- NOTE | 2021-10-20 17:30 | NUR ---
RN NOTE COMPLETED TRANSFUSION OF PLATELET, TOLERATED WELL. NO ADVERSE REACTIONS NOTED. POST TRANSFUSION VITAL SIGNS: TEMP-98.7, HR-110, RR-20, O2-95%, BP-137/87. NO SOB OR ANY ACUTE DISTRESS NOTED AT THE TIME. ALL NEEDS ANTICIPATED. ALL SAFETY MEASURES IMPLEMENTED. CALL LIGHT WITHIN REACH.
--- NOTE | 2021-10-20 19:33 | NUR ---
RN NOTE DR. EATON COMPLETED PROCEDURE OF BONE MARROW BIOPSY AND ASPIRATION. PATIENT TOLERATED PROCEDURE WELL. PATIENT AWAKE, ALERT AND VERBALLY RESPONSIVE. ALL NEEDS ANTICIPATED.
--- NOTE | 2021-10-20 19:53 | NUR ---
RN CLOSING NOTE NO SIGNIFICANT CHANGES THROUGHOUT SHIFT. PATIENT IN STABLE CONDITION. PATIENT IN BED, RESTING. PATIENT ON ROOM AIR TOLERATING WELL. WITH NO SIGNS OF ANY RESPIRATORY DISTRESS NOTED AT THE TIME. BREATHING EVEN AND UNLABORED. OSTOMY BAG IN PLACE, HUGHES CATH IN PLACE. WITH IV ACCESS ON LEFT UA MIDLINE AND LEFT AC 20G INTACT AND PATENT. ALL DUE MEDS GIVEN ORDERED. KEPT PATIENT CLEAN DRY AND COMFORTABLE. ALL SAFETY MEASURES IN PLACE, BED LOCKED AND IN LOWEST POSITION, CALL LIGHT WITHIN REACH, 3 SIDE RAILS UP. BED ALARM ON. ENDORSED TO STEAM POWERPLANT SUPERVISOR NURSE FOR CHANA.
--- NOTE | 2021-10-20 20:00 | NUR ---
RN OPENING NOTE RECEIVED CARE OF PATIENT FROM AM NURSE. PATIENT S/P BONE MARROW BIOPSY. NO COMPLICATIONS NOTED POST PROCEDURE. PATIENT IS A/O X4, ABLE TO MAKE NEEDS KNOWN. PATIENT IS ON ROOM AIR, O2 SAT 95%, NO SOB NOTED. TELE MONITOR SHOWING NSR WITH HR OF 91, NO DISTRESS NOTED ON PATIENT. NO SIGNIFICANT FINDINGS UPON INITIAL NURSING ASSESSMENTS. PATIENT NOTED WITH OSTOMY BAD IN PLACE. IV ACCESS ON LEFT UA MIDLINE INTACT AND PATENT. ALL SAFETY MEASURES IN PLACE, BED LOCKED AND IN LOWEST POSITION, CALL LIGHT WITHIN REACH, 3 SIDE RAILS UP, BED ALARM ON. WILL CONTINUE TO MONITOR.
[2021-10-20 20:19] LABS: BASOPHILS % (AUTO) 0.5 % (0.0-2.0); EOSINOPHILS % (AUTO) 0.4 % (0.0-6.0); HEMATOCRIT 28 % (33-45); HEMOGLOBIN 9.3 g/dL (11.5-14.8); LYMPHOCYTES # (AUTO) 0.1 K/uL (0.8-4.8); LYMPHOCYTES % (AUTO) 2.7 % (20.0-44.0); MEAN CORPUSCULAR HGB CONC 33 g/dl (31.0-36.0); MEAN CORPUSCULAR VOLUME 77 fL (82-100); MONOCYTES # (AUTO) 0.1 K/uL (0.1-1.30); MONOCYTES % (AUTO) 2.2 % (2.0-12.0); NEUTROPHILS # (AUTO) 3.4 K/uL (1.8-8.9); NEUTROPHILS % (AUTO) 94.2 % (43.0-81.0); PLATELET COUNT (AUTO) 65 K/uL (150-450); RED BLOOD CELL COUNT(AUTO) 3.71 MIL/uL (4.0-5.2); WHITE BLOOD COUNT (AUTO) 3.6 K/uL (4.3-11.0)
[2021-10-21] VITALS: BP 124/66
[2021-10-21] MEDS: LORAZEPAM INJ 2 MG/ML VIAL IV PRN (01:16)
[2021-10-21 04:00] VITALS: BP 109/57
--- NOTE | 2021-10-21 06:20 | NUR ---
RN CLOSING NOTES WILL ENDORSE CARE OF PATIENT TO AM NURSE. PATIENT REMAINS IN BED, A/O X4, ABLE TO MAKE NEEDS KNOWN. ALL PATIENT NEEDS ANTICIPATED AND MET THROUGHOUT SHIFT. ALL DUE MEDS GIVEN. NO SIGNIFICANT FINDINGS UPON ALL NURSING ASSESSMENTS. SAFETY MEASURES FOLLOWED AND IMPLEMENTED PER HOSPITAL PROTOCOLS. WILL ENDORSE TO AM NURSE FOR CHANA.
[2021-10-21] MEDS: MORPHINE SULFATE INJ 2 MG/ML DISP.SYRIN IV PRN ×3 (06:55→23:39)
[2021-10-21] MEDS: INSULIN REGULAR, HUMAN 100 UNIT/ML 3 ML VIAL SQ PRN ×3 (06:55→16:47)
[2021-10-21] MEDS: BLOOD SUGAR DIAGNOSTIC 1 EACH STRIP IN SCH ×3 (06:56→17:35)
--- NOTE | 2021-10-21 07:41 | NUR ---
FUR REMODELER OPENING NOTE RECEIVED PATIENT IN BED AWAKE. RESTING. PATIENT ON ROOM AIR TOLERATING WELL WITH SATURATION OF 96%. WITH NO SIGNS OF ANY RESPIRATORY DISTRESS NOTED AT THE TIME. BREATHING EVEN AND UNLABORED. NO PAIN NOTED. NO DISTRESS NOTED. ON TELE MONITOR READING SR 89. OSTOMY BAG IN PLACE. WITH IV ACCESS ON LEFT UA MIDLINE IN PLACE . ALL SAFETY MEASURES IN PLACE, BED LOCKED AND IN LOWEST POSITION, CALL LIGHT WITHIN REACH, 3 SIDE RAILS UP. BED ALARM ON. PADDED SIDE RAILS FOR SEIZURE PRECAUTION. WILL CONTINUE TO MONITOR PATIENT .
[2021-10-21 08:00] VITALS: BP 109/61
[2021-10-21 08:07] LABS: *ANA ANTI-CENTROMERE B AB <0.2 AI (0.0-0.9); *ANA ANTI-DNA(DS) AB, QN <1 IU/mL (0-9); *ANA ANTI-JO-1 <0.2 AI (0.0-0.9); *ANA ANTICHROMATIN ANTIBODY <0.2 AI (0.0-0.9); *ANA RNP ANTIBODIES 0.3 AI (0.0-0.9); *ANA SJOGREN'S ANTI-SS-A <0.2 AI (0.0-0.9); *ANA SJOGREN'S ANTI-SS-B <0.2 AI (0.0-0.9); *ANAANTI-SCLERODERMA-70 AB <0.2 AI (0.0-0.9); *ANASMITH AB <0.2 AI (0.0-0.9)
[2021-10-21 08:21] LABS: BASOPHILS % (AUTO) 0.2 % (0.0-2.0); EOSINOPHILS % (AUTO) 1.3 % (0.0-6.0); HEMATOCRIT 29 % (33-45); HEMOGLOBIN 9.4 g/dL (11.5-14.8); LYMPHOCYTES # (AUTO) 0.3 K/uL (0.8-4.8); LYMPHOCYTES % (AUTO) 8.6 % (20.0-44.0); MEAN CORPUSCULAR HGB CONC 32 g/dl (31.0-36.0); MEAN CORPUSCULAR VOLUME 78 fL (82-100); MONOCYTES # (AUTO) 0.2 K/uL (0.1-1.30); MONOCYTES % (AUTO) 6.1 % (2.0-12.0); NEUTROPHILS % (AUTO) 83.8 % (43.0-81.0); PLATELET COUNT (AUTO) 90 K/uL (150-450); RED BLOOD CELL COUNT(AUTO) 3.75 MIL/uL (4.0-5.2); WHITE BLOOD COUNT (AUTO) 3.5 K/uL (4.3-11.0)
[2021-10-21] MEDS: GABAPENTIN 300 MG CAPSULE PO SCH ×3 (08:46→16:24)
[2021-10-21] MEDS: FLUCONAZOLE (100 MG) 100 MG TABLET PO SCH (08:46)
[2021-10-21] MEDS: LITHIUM CARBONATE (300 MG CAP) 300 MG CAPSULE PO SCH ×2 (08:46→21:49)
[2021-10-21] MEDS: VENLAFAXINE XR 75 MG CAP.SR.24H PO SCH (08:46)
[2021-10-21] MEDS: FOLIC ACID 1 MG TABLET PO SCH (08:47)
[2021-10-21] MEDS: MORPHINE SULFATE SR 15 MG TABLET.SA PO SCH ×2 (08:47→21:49)
[2021-10-21] MEDS: FERROUS SULFATE (325 MG) 325 MG/TAB TABLET PO SCH ×2 (08:47→16:25)
[2021-10-21 10:08] LABS: *SPE A/G RATIO 0.9 (0.7-1.7); *SPE ALPHA-1-GLOBULIN 0.3 g/dL (0.0-0.4); *SPE ALPHA-2-GLOBULIN 0.8 g/dL (0.4-1.0); *SPE BETA GLOBULIN 0.9 g/dL (0.7-1.3); *SPE M-SPIKE Not Observed g/dL (Not Observed)
[2021-10-21] MEDS: HYDROCODONE/APAP 10/325MG TABLET PO PRN (11:27)
[2021-10-21 12:00] VITALS: BP 109/61
--- NOTE | 2021-10-21 13:30 | NUR ---
RN NOTES PATIENT REFUSED GABAPENTIN FOR TIME 1330 .
[2021-10-21 16:00] VITALS: BP 110/52
[2021-10-21] MEDS: SOD FERRIC GLUC 125 MG in IV NS 0.9% 100 ML IV SCH (16:52)
--- NOTE | 2021-10-21 18:54 | NUR ---
RN NOTES PATIENT REFUSED GABAPENTIN FOR 1700.
--- NOTE | 2021-10-21 18:54 | NUR ---
SUPERVISOR RESPIRATORY CLOSING NOTE PATIENT IN BED AWAKE. RESTING. PATIENT ON ROOM AIR TOLERATING WELL WITH SATURATION OF 97%. WITH NO SIGNS OF ANY RESPIRATORY DISTRESS NOTED AT THE TIME. BREATHING EVEN AND UNLABORED. NO PAIN NOTED. NO DISTRESS NOTED. ON TELE MONITOR READING SR . OSTOMY BAG IN PLACE. WITH IV ACCESS ON LEFT UA MIDLINE IN PLACE . ALL DUE MEDS GIVEN ORDERED. ALL SAFETY MEASURES IN PLACE, BED LOCKED AND IN LOWEST POSITION, CALL LIGHT WITHIN REACH, 3 SIDE RAILS UP. BED ALARM ON. PADDED SIDE RAILS FOR SEIZURE PRECAUTION. WILL ENDORSE FOR CHANA.
--- NOTE | 2021-10-21 19:10 | NUR ---
RN NOTES RECEIVED REPORT FROM MORNING RN PATIENT IN BED A/O X4 ABLE TO MAKE NEEDS KNOWN. WITH IV ACCESS AT L UA MIDLINE PATENT FLUSHES WELL. WITH ILEOSTOMY BAG INTACT. ON ROOM AIR SATING 98%. NO SOB NO DISTRESS. ALL SAFETY MEASURES IN PLACE AT ALL TIMES. BED ON LOWEST POSITION AND LOCKED. ALL SAFETY MEASURES IN PLACE CALL LIGHT WITHIN REACH. WILL CLOSELY MONITOR THE PATIENT.
[2021-10-21 20:00] VITALS: BP 111/61
[2021-10-21] MEDS: TEMAZEPAM 7.5 MG CAPSULE PO PRN (22:07)
[2021-10-21 23:55] LABS: OCCULT BLOOD STOOL NEGATIVE (NEGATIVE)
[2021-10-22] VITALS: BP 119/63
--- NOTE | 2021-10-22 00:25 | NUR ---
RN NOTES BS 471 MD/DL RELAYED TO DR MARQUEZ DUE REGULAR INSULIN 10 UNITS GIVEN SQ.
[2021-10-22] MEDS: BLOOD SUGAR DIAGNOSTIC 1 EACH STRIP IN SCH ×5 (00:51→23:18)
[2021-10-22] MEDS: INSULIN REGULAR, HUMAN 100 UNIT/ML 3 ML VIAL SQ PRN ×5 (00:54→23:12)
[2021-10-22] MEDS: ONDANSETRON HCL/PF 4 MG/2 ML VIAL IVP PRN (01:53)
[2021-10-22] MEDS: HYDROCODONE/APAP 5/325MG TABLET PO PRN ×2 (03:52→22:07)
[2021-10-22 04:00] VITALS: BP 112/95
--- NOTE | 2021-10-22 06:53 | NUR ---
RN NOTES PATIENT REMAINS STABLE NO SIGNIFICANT CHANGES. ALL DUE MEDS GIVEN ORDERED. ILEOSTOMY INTACT NO LEAKAGE NOTED. ALL NEEDS ATTENDED. KEPT CLEAN AND DRY AT ALL TIMES. IV ACCESS AT HORTENCIA MIDLINE PATENT FLUSHES WELL. ALL SAFETY MEASURES IN PLACE NO SEIZURE NOTED. BED ON LOWEST POSITION AND LOCKED. WILL ENDORSED TO MORNING SHIFT FOR CHANA
--- NOTE | 2021-10-22 07:30 | NUR ---
OVERNIGHT STOCKER NOTES RECEIVED PT ASLEEP ON BED. ABLE TO MAKE NEEDS KNOWN. ON ROOM AIR, SATURATING 98% AT THIS TIME. ILEOSTOMY INTACT WITH NO LEAKAGE. VS WNL. IV ACCESS AT HORTENCIA MIDLINE PRESENT AND INTACT. NO COMPLAINS OF PAIN. SAFETY PRECAUTIONS IN PLACE; BED IN LOW POSITION AND LOCKED, RAILS UP X2, CALL LIGHT WITHIN REACH. WILL CONTINUE TO MONITOR PATIENT.
--- NOTE | 2021-10-22 08:00 | NUR ---
RN NOTE PATIENT REFUSED 080 VITAL SIGNS, PATIENT DOES NOT SEEM TO BE IN DISTRESS. PATIENT EDUCATION ON THE IMPORTANCE OF VITAL SIGNS, REFUSED WILL ATTEMPT TO RETAKE THEM AT A LATER TIME
[2021-10-22] MEDS: FERROUS SULFATE (325 MG) 325 MG/TAB TABLET PO SCH ×2 (08:40→18:33)
[2021-10-22] MEDS: FLUCONAZOLE (100 MG) 100 MG TABLET PO SCH (08:40)
[2021-10-22] MEDS: VENLAFAXINE XR 75 MG CAP.SR.24H PO SCH (08:40)
[2021-10-22] MEDS: FOLIC ACID 1 MG TABLET PO SCH (08:40)
[2021-10-22] MEDS: LITHIUM CARBONATE (300 MG CAP) 300 MG CAPSULE PO SCH ×2 (08:40→21:00)
[2021-10-22] MEDS: GABAPENTIN 300 MG CAPSULE PO SCH ×3 (08:40→18:33)
[2021-10-22] MEDS: MORPHINE SULFATE SR 15 MG TABLET.SA PO SCH ×2 (08:43→21:00)
[2021-10-22] MEDS: MORPHINE SULFATE INJ 2 MG/ML DISP.SYRIN IV PRN ×2 (10:45→21:08)
[2021-10-22 12:00] VITALS: BP 98/58
[2021-10-22 12:14] VITALS: BP 102/64
[2021-10-22 15:02] LABS: BASOPHILS % (AUTO) 0.2 % (0.0-2.0); HEMOGLOBIN 10.6 g/dL (11.5-14.8); LYMPHOCYTES # (AUTO) 0.9 K/uL (0.8-4.8)
[2021-10-22 15:13] LABS: CALCIUM, SERUM 8.2 mg/dL (8.5-10.1); POTASSIUM 5.5 mmol/L (3.5-5.1)
[2021-10-22] MEDS: SOD FERRIC GLUC 125 MG in IV NS 0.9% 100 ML IV SCH (15:20)
--- NOTE | 2021-10-22 15:45 | NUR ---
RN NOTE RECEIVED CRITICAL CALCIUM LEVEL OF 8.2. INFORMED DR LERMA NO NEW ORDERS.
[2021-10-22 16:01] VITALS: BP 100/58
[2021-10-22 16:01] LABS: HEMATOCRIT 33 % (33-45); LYMPHOCYTES % (AUTO) 15.3 % (20.0-44.0); MEAN CORPUSCULAR HGB CONC 32 g/dl (31.0-36.0); MEAN CORPUSCULAR VOLUME 77 fL (82-100); MONOCYTES # (AUTO) 0.8 K/uL (0.1-1.30); MONOCYTES % (AUTO) 13.6 % (2.0-12.0); NEUTROPHILS # (AUTO) 4.1 K/uL (1.8-8.9); NEUTROPHILS % (AUTO) 69.9 % (43.0-81.0); PLATELET COUNT (AUTO) 97 K/uL (150-450); RED BLOOD CELL COUNT(AUTO) 4.27 MIL/uL (4.0-5.2); WHITE BLOOD COUNT (AUTO) 5.8 K/uL (4.3-11.0)
[2021-10-22 17:17] LABS: EOSINOPHILS % (MANUAL) 1 % (0-4); LYMPHOCYTES % (MANUAL) 17 % (16-48); MONOCYTES % (MANUAL) 7 % (0-11.0); NEUTROPHILS % (MANUAL) 75 (42-76)
[2021-10-22] MEDS: HYDROCODONE/APAP 10/325MG TABLET PO PRN (17:20)
--- NOTE | 2021-10-22 18:45 | NUR ---
DICTAPHONE TRANSCRIBER CLOSING NOTES PATIENT RESTING IN BED A/OX4. ABLE TO MAKE NEEDS KNOWN. ON ROOM AIR, SATURATING ABOVE 95% AT THIS TIME. ILEOSTOMY INTACT WITH NO LEAKAGE BAG WAS REPLACED 1840. VS WNL. IV ACCESS AT DEMETRIUS MIDLINE PRESENT AND INTACT. NO COMPLAINS OF PAIN. SAFETY PRECAUTIONS IN PLACE; BED IN LOW POSITION AND LOCKED, RAILS UP X2, CALL LIGHT WITHIN REACH. WILL ENDORSE TO NIGHT NURSE FOR CHANA.
[2021-10-22 20:00] VITALS: BP 103/60
--- NOTE | 2021-10-22 20:00 | NUR ---
WAREHOUSE INSULATION WORKER OPENING NOTES RECEIVED PATIENT IN BED A/O X4, ABLE TO MAKE NEEDS KNOWN. WITH IV ACCESS AT HORTENCIA MIDLINE INTACT AND PATENT FLUSHES WELL. WITH ILEOSTOMY BAG INTACT. ON ROOM AIR TOLERATING WELL SATING 98%. NO SOB NOTED, NO COMPLAINTS OF PAIN AT THIS TIME, BED ON LOWEST POSITION AND LOCKED. ALL SAFETY MEASURES IN PLACE CALL LIGHT WITHIN REACH. WILL MONITOR THROUGHOUT SHIFT.
--- NOTE | 2021-10-22 21:08 | NUR ---
RN NOTE PT REFUSED TO TAKE MS TABLET A ROUTINE DOSE, SHE STATED "THAT'S NOT GONNA HELP WITH MY PAIN RIGHT NOW" SHE REQUESTED TO BE GIVEN MS IV DUE TO SEVERE PAIN RATED 9/10. WILL CONT TO MONITOR.
--- NOTE | 2021-10-22 23:00 | NUR ---
RN NOTE BS CHECKED AT 347 MG/DL, 8 UNITS OF INSULIN GIVEN PER SLIDING SCALE.
[2021-10-22] MEDS: TEMAZEPAM 7.5 MG CAPSULE PO PRN (23:07)
[2021-10-22] MEDS: INSULIN GLARGINE, 100 UNIT/ML CARTRIDGE SQ SCH (23:11)
[2021-10-23] VITALS: BP 115/62
[2021-10-23 04:00] VITALS: BP_SYST 103; BP_SYST 123; BP_DIAS 60; BP_DIAS 63
[2021-10-23] MEDS: HYDROCODONE/APAP 10/325MG TABLET PO PRN ×2 (04:32→22:23)
[2021-10-23] MEDS: IV NS 0.9% 250 ML IV PRN (05:22)
[2021-10-23] MEDS: INSULIN REGULAR, HUMAN 100 UNIT/ML 3 ML VIAL SQ PRN ×4 (05:34→23:14)
[2021-10-23 06:58] LABS: BASOPHILS % (AUTO) 0.1 % (0.0-2.0); EOSINOPHILS % (AUTO) 0.8 % (0.0-6.0); HEMATOCRIT 30 % (33-45); HEMOGLOBIN 9.9 g/dL (11.5-14.8); LYMPHOCYTES # (AUTO) 0.9 K/uL (0.8-4.8); LYMPHOCYTES % (AUTO) 13.5 % (20.0-44.0); MEAN CORPUSCULAR HGB CONC 33 g/dl (31.0-36.0); MEAN CORPUSCULAR VOLUME 77 fL (82-100); MONOCYTES % (AUTO) 14.2 % (2.0-12.0); NEUTROPHILS % (AUTO) 71.4 % (43.0-81.0); PLATELET COUNT (AUTO) 109 K/uL (150-450); RED BLOOD CELL COUNT(AUTO) 3.91 MIL/uL (4.0-5.2)
[2021-10-23 07:22] LABS: CALCIUM, SERUM 8.5 mg/dL (8.5-10.1); POTASSIUM 4.4 mmol/L (3.5-5.1)
--- NOTE | 2021-10-23 07:26 | NUR ---
FOREST FIRE PREVENTION SPECIALIST CLOSING NOTES PATIENT IN BED A/O X4, ABLE TO MAKE NEEDS KNOWN. WITH IV ACCESS AT HORTENCIA MIDLINE INTACT AND PATENT FLUSHES WELL. WITH ILEOSTOMY BAG INTACT. ON ROOM AIR TOLERATING WELL SATING 98%. NO SOB NOTED, NO COMPLAINTS OF PAIN AT THIS TIME, ALL NEEDS ATTENDED, ALL DUE MEDS GIVEN, KEPT DRY AND CLEAN, BED ON LOWEST POSITION AND LOCKED. ALL SAFETY MEASURES IN PLACE CALL LIGHT WITHIN REACH. WILL ENDORSE TO AM SHIFT NURSE.
[2021-10-23] MEDS: BLOOD SUGAR DIAGNOSTIC 1 EACH STRIP IN SCH ×4 (07:27→23:08)
--- NOTE | 2021-10-23 07:31 | NUR ---
FLOOR PERSON OPENING NOTES PATIENT IN BED A/O X4, ABLE TO MAKE NEEDS KNOWN. WITH IV ACCESS AT HORTENCIA MIDLINE INTACT AND PATENT FLUSHES WELL. WITH ILEOSTOMY BAG INTACT. ON ROOM AIR TOLERATING WELL SATING 98%. NO SOB NOTED, NO COMPLAINTS OF PAIN AT THIS TIME, BED ON LOWEST POSITION AND LOCKED. ALL SAFETY MEASURES IN PLACE CALL LIGHT WITHIN REACH. WILL CONTINUE PLAN OF CARE AND ANTICIPATE NEEDS. Addendum: 10/23/21 at 1846 by LETICIA DAWN RN IV ACCESS IS ON THE RIGHT UPPER ARM, NOT THE LEFT.
[2021-10-23 08:00] VITALS: BP 108/71
[2021-10-23] MEDS: VENLAFAXINE XR 75 MG CAP.SR.24H PO SCH (08:09)
[2021-10-23] MEDS: LITHIUM CARBONATE (300 MG CAP) 300 MG CAPSULE PO SCH ×2 (08:09→20:05)
[2021-10-23] MEDS: FOLIC ACID 1 MG TABLET PO SCH (08:10)
[2021-10-23] MEDS: FERROUS SULFATE (325 MG) 325 MG/TAB TABLET PO SCH ×2 (08:11→18:07)
[2021-10-23] MEDS: GABAPENTIN 300 MG CAPSULE PO SCH ×3 (08:11→18:07)
[2021-10-23] MEDS: FLUCONAZOLE (100 MG) 100 MG TABLET PO SCH (08:11)
[2021-10-23] MEDS: MORPHINE SULFATE SR 15 MG TABLET.SA PO SCH ×2 (08:12→20:05)
[2021-10-23] MEDS: MORPHINE SULFATE INJ 2 MG/ML DISP.SYRIN IV PRN ×2 (09:35→15:30)
[2021-10-23] MEDS: ONDANSETRON HCL/PF 4 MG/2 ML VIAL IVP PRN (09:52)
--- NOTE | 2021-10-23 10:00 | NUR ---
RN NOTE PATIENT REPORTED PAIN IN LEFT UPPER ARM. SITE APPEARED SWOLLEN AND REDDENED. ELEVATED THE EXTREMITY ON A PILLOW, AND PROVIDED ICE PACK. WILL CONTINUE TO MONITOR THE SITE AND PROVIDE PAIN RELIEF NEEDED.
[2021-10-23] MEDS: HYDROCODONE/APAP 5/325MG TABLET PO PRN (11:22)
[2021-10-23] MEDS: DOXYCYCLINE 100 MG in IV D5W 100 ML IV SCH ×2 (11:48→20:08)
[2021-10-23 12:00] VITALS: BP 102/56
[2021-10-23] MEDS: SOD FERRIC GLUC 125 MG in IV NS 0.9% 100 ML IV SCH (13:59)
[2021-10-23 16:00] VITALS: BP 118/58
--- NOTE | 2021-10-23 17:56 | NUR ---
RN NOTE INFORMED DR ZIMMERMAN REGARDING POSITIVE RESULT OF DVT ON LEFT ARM. NO ORDERERS RECEIVED
[2021-10-23] MEDS: ACETAMINOPHEN 325 MG TABLET PO PRN (18:07)
--- NOTE | 2021-10-23 18:42 | NUR ---
GROUND WIRER CLOSING NOTES PATIENT IN BED A/O X4, ABLE TO MAKE NEEDS KNOWN. NORMAL SINUS RHYTHM ON THE MONITOR AND SATURATING IN THE 90S ON ROOM AIR. IV ACCESS AT DEMETRIUS MIDLINE INTACT AND PATENT FLUSHES WELL. REDNESS AND SWELLING NOTED ON THE DEMETRIUS. RIGHT ARM IS ELEVATED ON A PILLOW WITH AN ICE PACK TO HELP WITH PAIN RELIEF. ILEOSTOMY BAG INTACT ON THE RIGHT LOWER ABDOMEN. NO COMPLAINTS OF PAIN AT THIS TIME, BED ON LOWEST POSITION AND LOCKED. ALL SAFETY MEASURES IN PLACE CALL LIGHT WITHIN REACH. WILL ENDORSE TO ONCOMING NURSE FOR CONTINUATION OF CARE.
--- NOTE | 2021-10-23 19:30 | NUR ---
RETIREMENT MANAGER OPENING NOTES RECEIVED PATIENT IN BED A/O X4, ABLE TO MAKE NEEDS KNOWN. ON ROOM AIR, TOLERATING WELL WITH 02 SAT OF 98%. NO S/SX OF ACUTE DISTRESS NOTED AT THIS TIME. WITH IV ACCESS NOTED AT DEMETRIUS MIDLINE, PATENT AND INTACT, FLUSHES WELL. PT HAS ILEOSTOMY BAG, INTACT. ALL SAFETY MEASURES IN PLACE: BED IN LOWEST POSITION AND LOCKED. SIDE RAILS UP X 2. CALL LIGHT WITHIN REACH. WILL CONTINUE TO MONITOR THE PT CLOSELY THROUGHOUT SHIFT.
[2021-10-23 20:00] VITALS: BP 90/65
[2021-10-23] MEDS: APIXABAN 5 MG TABLET PO SCH (20:07)
[2021-10-23] MEDS: TEMAZEPAM 7.5 MG CAPSULE PO PRN (23:11)
[2021-10-23] MEDS: INSULIN GLARGINE, 100 UNIT/ML CARTRIDGE SQ SCH (23:13)
[2021-10-24] VITALS: BP 95/62
--- NOTE | 2021-10-24 02:25 | NUR ---
TELE/RN: COLOSTOMY CARE RENDERED AND BAG CHANGED.
[2021-10-24 04:00] VITALS: BP 137/74
[2021-10-24] MEDS: BLOOD SUGAR DIAGNOSTIC 1 EACH STRIP IN SCH ×2 (05:46→12:33)
[2021-10-24] MEDS: INSULIN REGULAR, HUMAN 100 UNIT/ML 3 ML VIAL SQ PRN ×2 (05:48→12:39)
[2021-10-24] MEDS: MORPHINE SULFATE INJ 2 MG/ML DISP.SYRIN IV PRN ×2 (05:56→17:05)
--- NOTE | 2021-10-24 06:56 | NUR ---
TURF FARM WORKER CLOSING NOTES PATIENT IN BED A/O X4, ABLE TO MAKE NEEDS KNOWN. SINUS TACHYCARDIA ON THE MONITOR AND SATURATING AT 96% ON ROOM AIR. IV ACCESS AT DEMETRIUS MIDLINE INTACT AND PATENT, FLUSHES WELL. ILEOSTOMY BAG INTACT ON THE RIGHT LOWER ABDOMEN. ILEOSTOMY CARE RENDERED. ALL DUE MEDS GIVEN. NEEDS ATTENDED TO. KEPT PT CLEAN AND DRY. ALL SAFETY MEASURES IMPLEMENTED: BED IN LOWEST POSITION AND LOCKED. SR UP X 2. CALL LIGHT WITHIN REACH. WILL ENDORSE TO AM SHIFT NURSE FOR CHANA.
--- NOTE | 2021-10-24 07:57 | NUR ---
RN AM NOTE PATIENT IS AT BED , AWAKE , ALERT , ORIENTED TIMES 3, AT ROOM AIR, NO S/S OF DISTRESS NOTED , PATIENT IS AMBULATORY , RISK FOR FALL , INSTRUCTIONS WERE PROVIDED ON MEASURES TO PREVENT FALLS , PATIENT XIMENA;[id number] UNDERSTANDING . ILEECTOMY BAG WAS PULL AND LEAKED WITH LIQUID STOOL , ILLIOSTOMY BAG WAS CHANGED WITH PATIENT CLEANSED PRIOR TO .PATIENT HAS DEMETRIUS 18 G MIDLINE WITH NS TKO, IV SITE ASSESSE, INTACT NS IS RUNNING , PATIENT C/O PAIN OF THE DEMETRIUS 11/27 AND ASKED FOR HER PAIN MEDICATION AND ALSO C/O NAUSEA , ASKED FOR HER MEDICATION TO TREAT NAUSEA. ALL SAFETY MEASURES IN PLACE: BED IN LOWEST POSITION AND LOCKED. SIDE RAILS UP X 2. CALL LIGHT WITHIN REACH. WILL CONTINUE TO MONITOR THE PT CLOSELY THROUGHOUT SHIFT.
[2021-10-24 08:00] VITALS: BP 113/67
[2021-10-24] MEDS: MORPHINE SULFATE SR 15 MG TABLET.SA PO SCH (08:26)
[2021-10-24] MEDS: FLUCONAZOLE (100 MG) 100 MG TABLET PO SCH (08:27)
[2021-10-24] MEDS: LITHIUM CARBONATE (300 MG CAP) 300 MG CAPSULE PO SCH (08:27)
[2021-10-24] MEDS: VENLAFAXINE XR 75 MG CAP.SR.24H PO SCH (08:27)
[2021-10-24] MEDS: FERROUS SULFATE (325 MG) 325 MG/TAB TABLET PO SCH (08:27)
[2021-10-24] MEDS: FOLIC ACID 1 MG TABLET PO SCH (08:27)
[2021-10-24] MEDS: APIXABAN 5 MG TABLET PO SCH (08:30)
[2021-10-24] MEDS: GABAPENTIN 300 MG CAPSULE PO SCH ×2 (08:41→15:42)
[2021-10-24] MEDS: DOXYCYCLINE 100 MG in IV D5W 100 ML IV SCH (09:21)
[2021-10-24 10:24] LABS: BASOPHILS % (AUTO) 0.4 % (0.0-2.0); EOSINOPHILS % (AUTO) 1.1 % (0.0-6.0); HEMATOCRIT 31 % (33-45); HEMOGLOBIN 9.7 g/dL (11.5-14.8); LYMPHOCYTES % (AUTO) 17.3 % (20.0-44.0); MEAN CORPUSCULAR HGB CONC 31 g/dl (31.0-36.0); MEAN CORPUSCULAR VOLUME 79 fL (82-100); MONOCYTES # (AUTO) 0.5 K/uL (0.1-1.30); MONOCYTES % (AUTO) 9.6 % (2.0-12.0); NEUTROPHILS % (AUTO) 71.6 % (43.0-81.0); PLATELET COUNT (AUTO) 117 K/uL (150-450); WHITE BLOOD COUNT (AUTO) 5.6 K/uL (4.3-11.0)
[2021-10-24 12:00] VITALS: BP 113/67
[2021-10-24] MEDS ORDERED: FERR325T28 PO (14:51)
[2021-10-24] MEDS ORDERED: APIX5TAB PO (14:51)
[2021-10-24] MEDS ORDERED: FLUC100T8 PO (14:51)
[2021-10-24] MEDS ORDERED: GABA300C PO (14:51)
[2021-10-24] MEDS ORDERED: Folic Acid PO (14:51)
[2021-10-24] MEDS ORDERED: LITH300C4 PO (14:51)
[2021-10-24] MEDS ORDERED: DOXY100C2 PO (14:51)
[2021-10-24 16:00] VITALS: BP 113/67
[2021-10-30] MEDS ORDERED: APIXABAN 5 MG TABLET PO SCH (21:00)
== END 2021-10-24 21:26 | DRG 871 ==
LOC: ER 02:33 → TRANSITION 06:32 → ICU 11:23 → TRANSITION 11:23 → TELE-TD 20:09 → ICU 10-15 03:10 → TELE1 10-16 18:01
PROVIDERS: ADMIT Family Medicine; ATTEND Nurse Practitioner Acute Care
PROC: 05HC33Z Insertion of Infusion Device into Left Basilic Vein, Percutaneous Approach (ICD-10-PCS; 2021-10-14)
PROC: 30233K1 Transfusion of Nonautologous Frozen Plasma into Peripheral Vein, Percutaneous Approach (ICD-10-PCS; 2021-10-19)
PROC: 30233R1 Transfusion of Nonautologous Platelets into Peripheral Vein, Percutaneous Approach (ICD-10-PCS; 2021-10-19)
PROC: 079T3ZX Drainage of Bone Marrow, Percutaneous Approach, Diagnostic (ICD-10-PCS; principal; 2021-10-20)
PROC: 05HB33Z Insertion of Infusion Device into Right Basilic Vein, Percutaneous Approach (ICD-10-PCS; 2021-10-22)
DX: A41.9 Sepsis, unspecified organism (principal); N17.0 Acute kidney failure with tubular necrosis; R65.21 Severe sepsis with septic shock; K76.6 Portal hypertension; D61.818 Other pancytopenia; D68.9 Coagulation defect, unspecified; E87.1 Hypo-osmolality and hyponatremia; E87.2 Acidosis; I82.622 Acute embolism and thrombosis of deep veins of left upper extremity; K86.1 Other chronic pancreatitis; R45.851 Suicidal ideations; B37.49 Other urogenital candidiasis; F31.60 Bipolar disorder, current episode mixed, unspecified; A08.4 Viral intestinal infection, unspecified; Z20.822 Contact with and (suspected) exposure to COVID-19; G89.4 Chronic pain syndrome; K21.9 Gastro-esophageal reflux disease without esophagitis; Z93.3 Colostomy status; Z79.4 Long term (current) use of insulin; Z79.899 Other long term (current) drug therapy; D50.9 Iron deficiency anemia, unspecified; D69.59 Other secondary thrombocytopenia; K72.90 Hepatic failure, unspecified without coma; D72.821 Monocytosis (symptomatic); D72.820 Lymphocytosis (symptomatic); E83.42 Hypomagnesemia; E86.1 Hypovolemia; E87.5 Hyperkalemia; I12.9 Hypertensive chronic kidney disease with stage 1 through stage 4 chronic kidney disease, or unspecified chronic kidney disease; N18.9 Chronic kidney disease, unspecified; E87.6 Hypokalemia; E87.70 Fluid overload, unspecified; F31.9 Bipolar disorder, unspecified; G40.909 Epilepsy, unspecified, not intractable, without status epilepticus; Z79.891 Long term (current) use of opiate analgesic; Z91.51 Personal history of suicidal behavior; M47.816 Spondylosis without myelopathy or radiculopathy, lumbar region; Z87.19 Personal history of other diseases of the digestive system; W18.30XA Fall on same level, unspecified, initial encounter; Y92.129 Unspecified place in nursing home as the place of occurrence of the external cause; E11.22 Type 2 diabetes mellitus with diabetic chronic kidney disease
CPT/HCPCS: 36410; 36415; 36600; 70450-TC; 71045-TC; 72125-TC; 76700-TC; 80048-TC; 80076-TC; 81001; 82010-TC; 82247-TC; 82248-TC; 82272-TC; 82607-TC; 82728-TC; 82784; 82803-TC; 82962-TC; 83540-TC; 83605-TC; 83735-TC; 84100-TC; 84155; 84165; 84439-TC; 84443-TC; 84484-TC; 85025-TC; 85045-TC; 85378-TC; 85385-TC; 85396; 85610-TC; 85730-TC; 86140-TC; 86225; 86235; 86334; 86431-TC; 86706; 86803; 86850-TC; 87040-TC; 87081-TC; 87086-TC; 87340; 87806; 93971-TC; 94799-TC; A6403; C9113; C9803; G0378; J0610; J1170; J1644; J1815; J2060; J2185; J2270; J2370; J2405; J2543; J2916; J3430; J3475; J3480; J3490; J7030; J7040; J7042; J7050; J7060; J7070; J7120; P9017; P9034

== ENCOUNTER 2021-11-02 16:17 | Inpatient (IN) | payer MEDICARE, OTHER ==
[2021-11-02] VITALS (19 sets, daily range): BP systolic 69–150; BP diastolic 41–110
[~2021-11-02] VITALS: Ht 160 cm; Wt 51.7 kg
[~2021-11-02 16:17] MED LIST changes: +AMIN887L PO; -AMOX-430 PO; +APIX5TAB PO; +CRAN400C PO; +DOCU-141 PO; +DOXY100C2 PO; +FERR325T28 PO; +FLUC100T8 PO; +Folic Acid PO; +GABA300C PO; +LITH300C4 PO; -LOPE2TAB25 PO; -MERO500V23 IV; +METO-295 PO; -MICA100V3 IV; +MULT-439 PO; +NA P133E RC; +NICO-676 TD; +ONDA4TAB11 PO; -ONDA4TAB5 PO; -ZINC220T4 PO
--- NOTE | 2021-11-02 16:21 | NUR ---
KOBI FROM [facility], SENT BY DR BUTLER FOR ABN LAB: K+ 7.7, BUN 49, CREATININE 3.49. TO ER BED 12, HOOKED TO MERCHANDISE PROCESSOR, NOTED SINUS TACHY, CHANGED TO HOSP GOWN, WARM BLABKET PROVIDED PATIENT AAO x 2, BREATHING EVEN AND UNLABORED. DR HERNANDES AT BEDSIDE
[2021-11-02] MEDS ORDERED: IV NS 0.9% 1,000 ML BAG IV ONE ×2 (16:30)
[2021-11-02] MEDS ORDERED: INSULIN REGULAR, HUMAN 100 UNIT/ML 10 ML VIAL IV ONE (16:30)
[2021-11-02] MEDS ORDERED: SODIUM BICARBONATE SYR 50 MEQ/50 ML DISP.SYRIN IV ONE (16:30)
[2021-11-02] MEDS ORDERED: FUROSEMIDE 40 MG/4 ML VIAL IV ONE (16:30)
[2021-11-02] MEDS ORDERED: DEXTROSE 50%-WATER 50 ML DISP.SYRIN IV ONE (16:30)
[2021-11-02] MEDS ORDERED: ALBUTEROL FS 2.5 MG/3 ML VIAL.NEB NEB ONE (16:30)
[2021-11-02] MEDS ORDERED: CALCIUM CHLORIDE 1,000 MG/10 ML DISP.SYRIN IV ONE (16:30)
[2021-11-02] MEDS ORDERED: FUROSEMIDE 20 MG/2 ML VIAL ONE (16:48)
[2021-11-02] MEDS ORDERED: CALCIUM CHLORIDE 1,000 MG/10 ML DISP.SYRIN ONE (16:48)
[2021-11-02] MEDS ORDERED: SODIUM BICARBONATE SYR 50 MEQ/50 ML DISP.SYRIN ONE (16:48)
[2021-11-02] MEDS ORDERED: DEXTROSE 50%-WATER 50 ML DISP.SYRIN ONE (16:48)
[2021-11-02] MEDS ORDERED: INSULIN REGULAR, HUMAN 100 UNIT/ML 10 ML VIAL ONE (16:49)
--- NOTE | 2021-11-02 17:00 | NUR ---
RAPID COVID SWAB DONE AND SENT TO LAB
[2021-11-02 17:42] LABS: BASOPHILS % (AUTO) 0.3 % (0.0-2.0); HEMATOCRIT 45 % (33-45); HEMOGLOBIN 13.7 g/dL (11.5-14.8); LYMPHOCYTES # (AUTO) 1.4 K/uL (0.8-4.8); LYMPHOCYTES % (AUTO) 9.1 % (20.0-44.0); MEAN CORPUSCULAR HGB CONC 31 g/dl (31.0-36.0); MEAN CORPUSCULAR VOLUME 81 fL (82-100); MONOCYTES # (AUTO) 0.4 K/uL (0.1-1.30); MONOCYTES % (AUTO) 2.3 % (2.0-12.0); NEUTROPHILS # (AUTO) 13.9 K/uL (1.8-8.9); NEUTROPHILS % (AUTO) 88.3 % (43.0-81.0); PLATELET COUNT (AUTO) 535 K/uL (150-450); RED BLOOD CELL COUNT(AUTO) 5.49 MIL/uL (4.0-5.2); WHITE BLOOD COUNT (AUTO) 15.8 K/uL (4.3-11.0)
[2021-11-02] MEDS ORDERED: ALBUTEROL FS 2.5 MG/0.5 ML VIAL.NEB ONE (18:23)
[2021-11-02 18:37] LABS: BAND % (MANUAL) 1 % (0.0-5.0); LYMPHOCYTES % (MANUAL) 11 % (16-48); MONOCYTES % (MANUAL) 1 % (0-11.0); NEUTROPHILS % (MANUAL) 87 (42-76)
[2021-11-02 18:40] LABS: CALCIUM, SERUM 8.1 mg/dL (8.5-10.1); CARBON DIOXIDE 11 mmol/L (21-32); CHLORIDE 109 mmol/L (98-107); CREATININE 5.4 mg/dL (0.6-1.3); GLUCOSE 259 mg/dL (74-106); SODIUM SERUM 131 mmol/L (136-145); UREA NITROGEN, BLOOD 59 mg/dL (7-18)
[2021-11-02 18:43] LABS: POTASSIUM 8.6 mmol/L (3.5-5.1)
[2021-11-02 18:53] LABS: ALANINE AMINOTRANSFERASE 16 U/L (12-78); ALBUMIN 2.9 g/dL (3.4-5.0); ALKALINE PHOSPHATASE 95 U/L (46-116); ASPARTATE AMINOTRANSFERASE 20 U/L (15-37); BILIRUBIN,DIRECT 0.1 mg/dL (0.0-0.2); BILIRUBIN,TOTAL 0.2 mg/dL (0.2-1.0)
--- NOTE | 2021-11-02 19:06 | NUR ---
URINE SAMPLE COLLECTED FROM HUGHES CATHETER AND SENT TO LAB
[2021-11-02] MEDS: SODIUM BICARBONATE SYR 100 MEQ in IV NS 0.9% 1,000 ML IV SCH (19:15)
--- NOTE | 2021-11-02 19:17 | NUR ---
REPORT GIVEN TO ZURI OF ICU
--- NOTE | 2021-11-02 19:20 | NUR ---
ICU/MANAGING ATTORNEY CHARGE NURSE GOT REPORT FROM ER NURSE. MED RECON WAS DONE. MRSA WASN'T DONE.
[2021-11-02] MEDS ORDERED: NOREPINEPHRINE 32 MG in IV NS 0.9% 218 ML IV PRN (19:30)
[2021-11-02] MEDS ORDERED: DEXTROSE 50%-WATER 50 ML DISP.SYRIN IV PRN (19:30)
[2021-11-02] MEDS ORDERED: ONDANSETRON HCL/PF 4 MG/2 ML VIAL IVP PRN (19:30)
[2021-11-02] MEDS ORDERED: Z GUARD REMEDY 4 OZ OINT TP PRN (19:30)
--- NOTE | 2021-11-02 19:31 | NUR ---
REPORT GIVEN TO NURSE KEATING FOR CHANA
[2021-11-02 19:36] LABS: BILIRUBIN,URINE NEGATIVE (NEGATIVE); COLOR,URINE YELLOW (YELLOW); LEUKOCYTE ESTERASE ,URINE LARGE (NEGATIVE); NITRITE, URINE NEGATIVE (NEGATIVE); PH,URINE 5.5 (5.0-8.0); PROTEIN,URINE 100 mg/dl (NEGATIVE); UGLUCOSE 250 MG/DL mg/dL (NEGATIVE); UROBILINOGEN,URINE 0.2 EU/dL (0.2)
--- NOTE | 2021-11-02 19:45 | NUR ---
NORMAL SALINE 500 ML IV WIDE OPEN ONCE PER DNP [facility]. THE ORDER IS READ BACK, VERIFIED. NOTED AND CARRIED OUT.
--- NOTE | 2021-11-02 19:45 | NUR ---
ICU/TITLE INSURANCE SALES REPRESENTATIVE PT CAME UP FROM ER, TRANSFERRED TO BED. ORDERS TAKEN OFF.
--- NOTE | 2021-11-02 19:52 | NUR ---
PICC LINE NURSE WILL ARRIVE AT 2300
[2021-11-02] MEDS ORDERED: IV NS 0.9% 500 ML IV ONE (20:00)
[2021-11-02] MEDS ORDERED: IV NS 0.9% 500 ML BAG IV ONE (20:00)
[2021-11-02 20:02] LABS: BACTERIA,URINE 1+ /HPF (None Seen); RBC,URINE 21-50 /HPF (0-2); SQUAMOUS EPITHELIAL CELL,UR 0-2 /HPF (None Seen); WBC,URINE 51-80 /HPF (0-3); YEAST,URINE Many /HPF (None Seen)
[2021-11-02] MEDS ORDERED: HEPARIN SODIUM, PORCINE 5000 UNITS/1 ML VIAL SQ SCH (21:00)
[2021-11-02] MEDS ORDERED: VANCOMYCIN 1 GM in IV D5W 250 ML IV ONE (21:00)
[2021-11-02 21:27] LABS: CALCIUM, SERUM 9.7 mg/dL (8.5-10.1); CREATININE 4.4 mg/dL (0.6-1.3); POTASSIUM 5.3 mmol/L (3.5-5.1)
--- NOTE | 2021-11-02 21:50 | NUR ---
ICU/AEROSPACE PROJECT MANAGER 2029-LABS WERE DRAWN REPEART CHEM 2100-OIL BURNER DID ECHO WITH 70% EJ 2119-CALLED NATALI DAUGHTER, CIRCULATION MAN NURSE GOT PHONE CONSENT FOR BOTH PICC & HD CATH 2129-PICC LINE NURSE TO PLACE PICC AND HD CATH TO DO STAT HD FOR K OF 8. 2144-BLOOD PRESSURE IS LOW 70'S-80'S CHARGE NURSE MADE AWARE, LEVO WAS STATED FOR THIS. WILL CONTINUE TO MONITOR THIS PT.
[2021-11-02] MEDS ORDERED: IV NS 0.9% 1,000 ML IV SCH (22:30)
[2021-11-02] MEDS: BLOOD SUGAR DIAGNOSTIC 1 EACH STRIP IN SCH (22:33)
[2021-11-02] MEDS: MEROPENEM 500 MG in IV NS 0.9% 50 ML IV SCH (22:34)
--- NOTE | 2021-11-02 23:50 | NUR ---
ICU/BEAD WIRE INSULATOR 0-TROP ORDERED, WILL GET FROM PICC LINE. 2229-MRSA OF NARES DONE 2244-PELON PICC LINE WAS ABLE TO GET LINE, AT THIS TIME DR LOGAN SAID NO HD NEEDED AND NO LINE NEEDED K LEVEL IS COMING DONE. ALSO CALLED FOR VERIFICATION IF HE WANTS NS @150ML. HE SAID NO JUST KEEP CURRENT FLUIDS OF NS PLUS 2 AMPS BICARB. 233-RIGHT MID THIGH PICC LINE WAS SUCCESSFULLY PLACED.
[2021-11-02] MEDS: INSULIN REGULAR, HUMAN 100 UNIT/ML 3 ML VIAL SQ PRN (23:59)
[2021-11-03] VITALS (85 sets, daily range): BP systolic 59–182; BP diastolic 23–134
--- NOTE | 2021-11-03 01:00 | NUR ---
ICU/BASEBALL INSPECTOR WAS ABLE TO HAVE CHARGE NURSE TITRATE DOWN THE LEVO FOR STABLE BLOOD PRESSURE. WILL CONTINUE TO MONITOR THIS PT AND HER BLOOD PRESSURE.
[2021-11-03 01:18] LABS: CALCIUM, SERUM 8.9 mg/dL (8.5-10.1); CREATININE 3.5 mg/dL (0.6-1.3); POTASSIUM 5.5 mmol/L (3.5-5.1)
[2021-11-03] MEDS ORDERED: IV NS 0.9% 250 ML IV PRN (01:30)
--- NOTE | 2021-11-03 01:55 | NUR ---
ICU/CURATOR ZOOLOGICAL MUSEUM PT HAS A PULSE FOR DNR CODE STATUS, WILL HAVE TO VERIFY THIS WITH THE DR IN THE MORNING WITH DAY NURSE.
[2021-11-03] MEDS: SODIUM BICARBONATE SYR 100 MEQ in IV NS 0.9% 1,000 ML IV SCH (01:58)
--- NOTE | 2021-11-03 03:00 | NUR ---
ICU/FACILITIES DIRECTOR WOUND CONSULT PUT IN FOR THIS PT.
[2021-11-03 04:17] LABS: BASOPHILS % (AUTO) 0.5 % (0.0-2.0); EOSINOPHILS % (AUTO) 0.4 % (0.0-6.0); HEMATOCRIT 30 % (33-45); HEMOGLOBIN 9.9 g/dL (11.5-14.8); LYMPHOCYTES # (AUTO) 1.3 K/uL (0.8-4.8); LYMPHOCYTES % (AUTO) 12.9 % (20.0-44.0); MEAN CORPUSCULAR HGB CONC 33 g/dl (31.0-36.0); MEAN CORPUSCULAR VOLUME 77 fL (82-100); MONOCYTES # (AUTO) 0.8 K/uL (0.1-1.30); MONOCYTES % (AUTO) 7.7 % (2.0-12.0); NEUTROPHILS % (AUTO) 78.5 % (43.0-81.0); PLATELET COUNT (AUTO) 305 K/uL (150-450); RED BLOOD CELL COUNT(AUTO) 3.89 MIL/uL (4.0-5.2); WHITE BLOOD COUNT (AUTO) 10.2 K/uL (4.3-11.0)
[2021-11-03 04:46] LABS: CALCIUM, SERUM 8.9 mg/dL (8.5-10.1); CREATININE 3.2 mg/dL (0.6-1.3); PHOSPHORUS 4.2 mg/dL (2.5-4.9); POTASSIUM 5.1 mmol/L (3.5-5.1)
[2021-11-03 05:03] LABS: MAGNESIUM 0.9 mg/dL (1.8-2.4)
--- NOTE | 2021-11-03 06:00 | NUR ---
ICU/BONDING SUPERVISOR CALLED THE DR EVS TECH FOR CRITICAL LAB VALUE OF MORNING LAB MAGNESIUM 0.9. WAITING FOR MD TO CALL BACK.
[2021-11-03] MEDS ORDERED: SODIUM BICARBONATE SYR 100 MEQ in IV NS 0.9% 1,000 ML IV PRN (06:31)
[2021-11-03] MEDS: BLOOD SUGAR DIAGNOSTIC 1 EACH STRIP IN SCH ×4 (06:31→21:41)
[2021-11-03] MEDS: INSULIN REGULAR, HUMAN 100 UNIT/ML 3 ML VIAL SQ PRN ×3 (06:32→21:41)
--- NOTE | 2021-11-03 06:46 | NUR ---
ICU/SPLITTER HAND CALLED THE DR GRANTS MANAGER FOR FOR A SECOND TIME FOR CRITICAL LAB VALUE OF MORNING LAB MAGNESIUM 0.9. WAITING FOR MD TO CALL BACK.
[2021-11-03] MEDS ORDERED: Magnesium 1 GM/2 ML VIAL IV ONE (07:00)
[2021-11-03] MEDS: Magnesium 1GM/D5W 100ML PREMIX 100 ML IV SCH ×4 (07:43→11:07)
[2021-11-03] MEDS ORDERED: Magnesium 1GM/D5W 100ML PREMIX 100 ML IV SCH (08:00)
--- NOTE | 2021-11-03 08:00 | NUR ---
RN OPENING NOTES RECEIVED PT A/O X 3, SOMETIMES CONFUSED. PT IS ON 2L O2 VIA NC SATING AT 100%. PT HAS A F/C AND COLOSTOMY, PATENT AND DRAINING. IV ACCESS NOTED ON R MID THIGH PICC RUNNING NS + 2 AMPS BICARB @ 150 ML/HR. LEVO RUNNING @ 0.1 TO KEEP SBP ABOVE 90. ALL SAFETY MEASURES IN PLACE. WILL CONT. TO MONITOR THROUGHOUT SHIFT.
[2021-11-03] MEDS: Sodium Bicarbonate 100 MEQ in IV NS 0.9% 1,000 ML IV SCH ×3 (08:36→21:12)
[2021-11-03] MEDS: DOCUSATE SODIUM 100 MG CAPSULE PO SCH (08:39)
[2021-11-03] MEDS: FAMOTIDINE (20 MG) 20 MG TABLET PO SCH ×2 (08:40→16:38)
[2021-11-03] MEDS: SUCRALFATE 1 G TABLET PO SCH ×2 (08:40→16:38)
[2021-11-03] MEDS: FOLIC ACID 1 MG TABLET PO SCH (08:40)
[2021-11-03] MEDS: FERROUS SULFATE (325 MG) 325 MG/TAB TABLET PO SCH ×2 (08:40→16:40)
[2021-11-03] MEDS: VENLAFAXINE XR 150 MG CAP.SR.24H PO SCH (08:40)
[2021-11-03] MEDS: PANTOPRAZOLE 40 MG TABLET.DR PO SCH ×2 (08:40→16:38)
[2021-11-03] MEDS: MULTIVITAMINS,THERAGRAN 1 UDTAB TABLET PO SCH (08:40)
[2021-11-03] MEDS: PANTOPRAZOLE 40 MG VIAL IV SCH (08:43)
[2021-11-03] MEDS: PROSOURCE / PROSTAT (PYXIS) 30 ML UDC PO SCH (08:44)
[2021-11-03] MEDS: APIXABAN 5 MG TABLET PO SCH ×2 (09:05→21:15)
[2021-11-03] MEDS: GLUCERNA SHAKE 237 ML CAN PO SCH (16:38)
--- NOTE | 2021-11-03 17:16 | NUR ---
bp 182/96. titrating levo to 0.05 mcg/kg/hr. will cont. to monitor bp. Addendum: 11/03/21 at 1851 by EDD CA RN "0.05 mcg/kg/min"
--- NOTE | 2021-11-03 18:15 | NUR ---
titrating levo down to 0.01 mcg/kg/min. current bp 137/75 map 89
[2021-11-03] MEDS: HYDROCODONE/APAP 10/325MG TABLET PO PRN (18:35)
--- NOTE | 2021-11-03 19:25 | NUR ---
RN NOTES RECEIVED CARE OF PATIENT FROM AM NURSE, PATIENT A/OX 3, ABLE TO VERBALIZE NEEDS. PATIENT ON O2 THERAPY VIA NC AT 2 L/MIN, NO SOB NOTED, O2 SAT 97%. PATIENT WITH TELE MONITOR SHOWING NSR WITH HR OF 86, NO DISTRESS NOTED ON PATIENT. PATIENT NOTED WITH COLOSTOMY BAG, DRAINING LIQUID, GREEN STOOL. BAG NOTED TO BE LEAKING, WILL CHANGE BAG. PATIENT WITH HUGHES CATH DRAINING YELLOW URINE TO GRAVITY, CATH PATENT. IV ACCESS ON R MID THIGH PICC, DEMETRIUS MID, L AC #20, RUNNING WITH LEVO DRIP AT 0.01 MCG/KG/MIN, AND NA BICARB 100 Meq IN NS AT 150 ML/HR. NO SIGNIFICANT FINDINGS UPON INITIAL NURSING ASSESSMENTS. WILL CONTINUE TO MONITOR PATIENT.
--- NOTE | 2021-11-03 19:30 | NUR ---
RN NOTES LEVO DRIP HELD FOR BP IF 174/73, HR OF 90. NO DISTRESS NOTED ON PATIENT. LEVO DRIP HELD FOLLOWING HOSPITAL PROTOCOLS. CHARGE NURSE OLESYA SHERMAN. WILL CONTINUE TO MONITOR PATIENT.
[2021-11-03] MEDS ORDERED: VANCOMYCIN 500 MG in IV D5W 100 ML IV PRN (20:00)
[2021-11-03] MEDS: MEROPENEM 500 MG in IV NS 0.9% 50 ML IV SCH (21:12)
[2021-11-04] VITALS (20 sets, daily range): BP systolic 87–117; BP diastolic 40–72
[2021-11-04] MEDS: HYDROCODONE/APAP 10/325MG TABLET PO PRN ×4 (01:55→22:57)
[2021-11-04] MEDS: MORPHINE SULFATE INJ 2 MG/ML DISP.SYRIN IV PRN ×4 (03:21→20:50)
[2021-11-04] MEDS: Sodium Bicarbonate 100 MEQ in IV NS 0.9% 1,000 ML IV SCH (04:05)
[2021-11-04 04:21] LABS: BASOPHILS % (AUTO) 0.6 % (0.0-2.0); HEMATOCRIT 22 % (33-45); HEMOGLOBIN 7.5 g/dL (11.5-14.8); LYMPHOCYTES # (AUTO) 0.6 K/uL (0.8-4.8); MEAN CORPUSCULAR HGB CONC 34 g/dl (31.0-36.0); MEAN CORPUSCULAR VOLUME 76 fL (82-100); MONOCYTES # (AUTO) 0.2 K/uL (0.1-1.30); MONOCYTES % (AUTO) 11.2 % (2.0-12.0); NEUTROPHILS # (AUTO) 1.2 K/uL (1.8-8.9); NEUTROPHILS % (AUTO) 57.2 % (43.0-81.0); PLATELET COUNT (AUTO) 135 K/uL (150-450); RED BLOOD CELL COUNT(AUTO) 2.94 MIL/uL (4.0-5.2)
[2021-11-04 04:33] LABS: ALBUMIN 2.1 g/dL (3.4-5.0); BILIRUBIN,TOTAL 0.2 mg/dL (0.2-1.0); CALCIUM, SERUM 7.6 mg/dL (8.5-10.1); CREATININE 1.2 mg/dL (0.6-1.3); MAGNESIUM 1.6 mg/dL (1.8-2.4); PHOSPHORUS 1.8 mg/dL (2.5-4.9); POTASSIUM 3.7 mmol/L (3.5-5.1); TOTAL PROTEIN, SERUM 5.4 g/dL (6.4-8.2)
[2021-11-04 05:04] LABS: BASOPHILS % (MANUAL) 0 % (0.0-2.0); EOSINOPHILS % (MANUAL) 1 % (0-4); LYMPHOCYTES % (MANUAL) 31 % (16-48); MONOCYTES % (MANUAL) 6 % (0-11.0); NEUTROPHILS % (MANUAL) 62 (42-76)
--- NOTE | 2021-11-04 06:46 | NUR ---
RN CLOSING NOTES WILL ENDORSE CARE OF PATIENT TO AM NURSE. PATIENT IN BED, ANXIOUS, EXPRESSES NOT BEING ABLE TO SLEEP AT ALL. PATIENT IS A/OX 3 ABLE TO VERBALIZE NEEDS. PATIENT'S NEEDS ANTICIPATED AND MET THROUGHOUT SHIFT. PAIN CONTROLLED WITH PRN NORCO, MORPHINE, AND CONSTANT REPOSITIONING. PATIENT ON ROOM AIR, BREATHING EVEN AND UNLABORED, O2 SAT 96%. TELE MONITOR SHOWING NSR WITH HR OF 87. ALL DUE MEDS GIVEN AND PATIENT'S NEEDS ATTENDED TO. SAFETY MEASURES IMPLEMENTED PER HOSPITAL PROTOCOLS. WILL ENDORSE TO AM NURSE FOR CONTINUITY OF CARE.
--- NOTE | 2021-11-04 07:30 | NUR ---
ICU/RN PT IS RESTING IN THE BED .ON ROOM AIR.SAT O2-99%.V/S STABLE.AFEBRILE.SINUS RHYTHM ON MONITOR. IV RIGHT UPPER ARM MIDLINE.RIGHT THIGH HD CATH.F/C DRAINING WITH YELLOW URINE.COLOSTOMY BAG DRAINING SOFT YELLOW STOOL.LABS REVIEW. NOTIFIED.NEW ORDERS RECEIVED.
[2021-11-04] MEDS: BLOOD SUGAR DIAGNOSTIC 1 EACH STRIP IN SCH ×4 (07:46→21:40)
[2021-11-04] MEDS: FERROUS SULFATE (325 MG) 325 MG/TAB TABLET PO SCH ×2 (08:17→16:13)
[2021-11-04] MEDS: Magnesium 1GM/D5W 100ML PREMIX 100 ML IV SCH ×2 (08:17→09:45)
[2021-11-04] MEDS: PANTOPRAZOLE 40 MG VIAL IV SCH (08:17)
[2021-11-04] MEDS: FOLIC ACID 1 MG TABLET PO SCH (08:18)
[2021-11-04] MEDS: DOCUSATE SODIUM 100 MG CAPSULE PO SCH (08:18)
[2021-11-04] MEDS: FAMOTIDINE (20 MG) 20 MG TABLET PO SCH ×2 (08:18→16:13)
[2021-11-04] MEDS: MULTIVITAMINS,THERAGRAN 1 UDTAB TABLET PO SCH (08:18)
[2021-11-04] MEDS: SUCRALFATE 1 G TABLET PO SCH ×2 (08:18→17:58)
[2021-11-04] MEDS: VENLAFAXINE XR 150 MG CAP.SR.24H PO SCH (08:18)
[2021-11-04] MEDS: NEUTRA PHOS 1 POWD.PACKET PO SCH ×2 (08:18→16:13)
[2021-11-04] MEDS: APIXABAN 5 MG TABLET PO SCH (08:19)
[2021-11-04] MEDS: INSULIN REGULAR, HUMAN 100 UNIT/ML 3 ML VIAL SQ PRN ×4 (08:20→21:42)
[2021-11-04] MEDS: PROSOURCE / PROSTAT (PYXIS) 30 ML UDC PO SCH (08:22)
[2021-11-04] MEDS: GLUCERNA SHAKE 237 ML CAN PO SCH ×2 (08:23→16:14)
[2021-11-04] MEDS: PANTOPRAZOLE 40 MG TABLET.DR PO SCH ×2 (08:23→16:13)
[2021-11-04 08:36] LABS: IRON, SERUM 40 ug/dl (50-175); TOTAL IRON BINDING CAPACITY 175 ug/dl (250-450)
[2021-11-04 08:54] LABS: FERRITIN 429 ng/mL (8-388)
[2021-11-04] MEDS ORDERED: IV D5/ 0.9% NACL 1,000 ML IV PRN (09:00)
--- NOTE | 2021-11-04 09:00 | NUR ---
ICU/RN DUE MEDS ARE GIVEN ORDERED.PT HAS CHRONIC PAIN .RECEIVED MORPHINE SULFATE 2 MG IV ORDERED AND NORCO PO. MG-1.6.REPLACED WITH 2 GM MAGNESIUM IV
[2021-11-04] MEDS ORDERED: MEROPENEM 1 G in IV NS 0.9% 50 ML IV SCH (12:00)
[2021-11-04] MEDS: MEROPENEM 1 G in IV NS 0.9% 100 ML IV SCH ×2 (13:47→20:40)
--- NOTE | 2021-11-04 14:00 | NUR ---
ICU/RN PT C /O OF PAIN 11/27.MORPHINE SULFATE 2 MG IV GIVEN ORDERED.
[2021-11-04 14:52] LABS: OCCULT BLOOD STOOL NEGATIVE (NEGATIVE)
--- NOTE | 2021-11-04 15:00 | NUR ---
ICU/RN PT TRANSFERRED TO M/S UNIT.V/S STABLE,AFEBRILE.
--- NOTE | 2021-11-04 15:10 | NUR ---
MS SUPRIYA NOTES RECEIVED PATIENT FROM ICU ENDORSED BY SUPRIYA CASTELLANOS VIA HOSPITAL BED. PATIENT IS AWAKE AND A/O X3-4. ON ROOM AIR TOLERATING WELL. NO SOB NOTED. NOT IN DISTRESS. WITH NO COMPLAINTS OF PAIN AT THIS TIME. WITH RIGHT MID THIGH HD CATH WITH DRY AND INTACT DRESSING. WITH RIGHT UPPER ARM MIDLINE, SALINE LOCKED, PATENT AND INTACT. WITH COLOSTOMY BAG IN PLACED ON COLOSTOMY SITE DRAINING BROWNISH LIQUIDY STOOL. WITH HUGHES CATHETER IN PLACED DRAINING CLEAR YELLOW URINE. SAFETY MEASURES IN PLACED. CALL LIGHT WITHIN REACH. BED ON LOWEST LOCKED POSIITON, SIDE RAILS UP X2. WILL CONTINUE TO MONITOR.
--- NOTE | 2021-11-04 19:08 | NUR ---
RN NOTES: RECEIVED AWAKE ON BED, PER ENDORSEMENT PATIENT IS NOT ON MED-SURG FROM ICU, NO LONGER IN TELE, A/OX3-4, ORIENTED TO UNIT AND STAFF, SMILING AND VERY FRIENDLY, PER RN HER PHOS AND MG ARE BOTH REPLACED ALREADY, SHE HAS COLOSTOMY, NEWLY DRAINED OUTPUT-750 ML, ON HUGHES CATH DRAINING INTO YELLOWISH CORED URINE AT 50 CC LEVEL, SHE HAS RIGHT MID THIG HD CATH, NOT ON DIALYSIS, SHE HAS DEMETRIUS -ML WITH NS+NAHCO3 100MeQ AT 150 ML/HR, FOR EGD TOMORROW, CONSENT OBTAINED ALREADY, PER RN ENDORSEMENT, ONCE CONSENT IS OBTAINED FOR EGD, PATIENT IS AUTOMATIC OFF ON DNR/DNR ON THE DAY OF THE PROCEDURE, PENDING PODIATRY CONSULT FOR JITENDRA FEET PAIN AND REDNESS, NPO AT 12 MIDNIGHT, FOR LABS IN THE MORNING AND CXR. -ON CLOSE WATCH, NO PAIN OR DISCOMFORT, NO SOB OR ANY RESPIRATORY DISTRESS, KEPT ON CLOSE WATCH.
--- NOTE | 2021-11-04 19:30 | NUR ---
MS RN NOTES PATIENT AWAKE ON BED AND A/O X3-4. ON ROOM AIR TOLERATING WELL. NO SOB NOTED. NOT IN DISTRESS. WITH NO COMPLAINTS OF PAIN AT THIS TIME. WITH RIGHT MID THIGH HD CATH WITH DRY AND INTACT DRESSING. WITH RIGHT UPPER ARM MIDLINE, SALINE LOCKED, PATENT AND INTACT. WITH COLOSTOMY BAG IN PLACED ON COLOSTOMY SITE DRAINING BROWNISH LIQUIDY STOOL. WITH HUGHES CATHETER IN PLACED DRAINING CLEAR YELLOW URINE. DUE MEDS GIVEN. FOR EGD TOMORROW WITH DR. CASIANO. NPO POST MIDNIGHT. DUE MEDS GIVEN. SAFETY MEASURES IN PLACED. CALL LIGHT WITHIN REACH. BED ON LOWEST LOCKED POSITION, SIDE RAILS UP X2. WILL ENDORSE TO NEXT SHIFT FOR CHANA.
--- NOTE | 2021-11-04 20:04 | NUR ---
RN NOTES: PER RN OUTGOING, SHE IS NO LONGER IN IV FLUIDS, ONLY IN SALINE LOCK,IVF WAS D/C BY OUTGOING RN/MORNING SHIFT.
--- NOTE | 2021-11-04 20:50 | NUR ---
RN NOTES: DUE IV/ATB GIVEN, PATIENT REQUEST FOR HER PAIN MEDICATION COMPLAINED OF 10/10, GENERALIZED PAIN, NON PHARMACOLOGIC INTERVENTION RENDERED, ADJUST AC, DIM LIT AND PLAY SOME SOFT MUSIC ON THE TV.
--- NOTE | 2021-11-04 22:14 | NUR ---
RN OTES: BLOOD SUGAR CHECKED-228, INSULIN GIVEN PER SCALE. -HER COLOSTOMY BAG IS LEAKING DRAINED-200 CC, CHANGE WITH NEW COLOSTOMY BAG.
--- NOTE | 2021-11-04 22:20 | NUR ---
RN NOTES: -PATIENT IS ASKING FOR SLEEPING PILL, SHE IS NOT ON ANY PRN MEDICATION EXPLAINED TO HER SHE DONT HAVE ANY ORDER FROM ICU, SHE WAS INSISTING THAT SHE HAVE IT IN ICU AND SHE WANT 1 NOW, SHE HAS SCHEDULED PROCEDURE OF EGD IN THE MORNING. - IT RISK ADVISOR WAS PAGE, AWAITING FOR RETURN CALL.
--- NOTE | 2021-11-04 22:50 | NUR ---
RN NOTES: CALLED BACK EXPLAINED TO HIM THAT PATIENT REQUEST FOR SLEEPING PILL, HE SAID HE KNOWS THE PATIENT FROM ICU NO SLEEPING PILL ORDERED, PER SHE HAS ARF AND SHE IS DUE FOR PROCEDURE TOMORROW MORNING. -TALK TO PATIENT EXPLAINED TO HER THE RISK AND BENIFITS OF SLEEPING PILL WHY IT WAS NOT ORDERED. -SHE WAS FEELING DISAPPOINTED,TRIED TO PACIFY THE PATIENT AND LET HER VERBALIZED HER FEELINGS. CN/RN NOTIFIED.
--- NOTE | 2021-11-04 22:57 | NUR ---
RN NOTES: AFTER SHE VERBALIZED HER FEELINGS SHE ASKED FOR HER ORAL PAIN MEDICATION, SHE SAID SHE HAS GENERALIZED PAIN AGAIN AND SHE NEED HER MEDICATION, FACIAL GRIMACE NOTED WHEN SHE TURNED,PRN MEDS GIVEN.
[2021-11-05] VITALS: BP 110/57
--- NOTE | 2021-11-05 01:55 | NUR ---
RN NOTES: SHE TURNED ON THE OPPOSITE SIDE OF HER BED AND ACCIDENTALLY HER COLOSTOMY BAG LEAK AGAIN, RN DRAINED IT, DRAINAGE-100CC, SHE REQUEST TO CHANGE WITH NEW BAG SHE REFUSED TO REINFORCED IT WITH TAPE.COLOSTOMY BAG CHANGED.
[2021-11-05 04:00] VITALS: BP 112/65
[2021-11-05] MEDS: BLOOD SUGAR DIAGNOSTIC 1 EACH STRIP IN SCH ×4 (06:16→22:06)
--- NOTE | 2021-11-05 06:51 | NUR ---
RN NOTES: AWAKE MOST OF THE TIME, BLOOD SUGAR-138, ON NPO SINCE 12 MIDNIGHT, FOR POSSIBLE EGD AROUND 930AM, V/S REMAIN STABLE, AFEBRILE, FOR LABS IN THE MORNING, PENDING PODIATRY CONSULT FOR BILATERAL FOOT PAIN AND REDNESS, CONTINUE ON ANTIBIOTIC AND INSULIN PER SLIDING SCALE.ENDORSED FOR CONTINUITY OF CARE. Addendum: 11/05/21 at 0654 by VERNA BECERRIL RN ADDED NOTES: URINE LLVIEP=101 CC YELLOWISH COLORED URINE.
--- NOTE | 2021-11-05 07:00 | NUR ---
MS RN OPENING NOTES PATIENT LAYING IN BED A/O X 4, ABLE TO MAKE NEEDS KNOWN. TOLERATING WELL ON ROOM AIR WITH NO S/S RESPIRATORY DISTRESS. R MID THIGH HD CATH IN PLACE WITH DRESSING C/D/I. DEMETRIUS MIDLINE CLEAN, INTACT, AND FLUSHING WELL. COLOSTOMY BAG SECURELY IN PLACE ON R UPPER ABDOMEN DRAINING LIQUID BROWN STOOL. HUGHES CATHETER IN PLACE DRAINING CLEAR YELLOW URINE. SAFETY MEASURES IN PLACE: BED IN LOWEST LOCKED POSITION, SIDE RAILS UP X 2, CALL LIGHT WITHIN REACH. WILL CONTINUE TO MONITOR.
[2021-11-05] MEDS: GLUCERNA SHAKE 237 ML CAN PO SCH ×2 (07:46→17:21)
[2021-11-05 08:00] VITALS: BP 125/70
[2021-11-05] MEDS: SUCRALFATE 1 G TABLET PO SCH (08:04)
[2021-11-05] MEDS: DOCUSATE SODIUM 100 MG CAPSULE PO SCH (08:04)
[2021-11-05] MEDS: FERROUS SULFATE (325 MG) 325 MG/TAB TABLET PO SCH ×2 (08:04→17:21)
[2021-11-05] MEDS: VENLAFAXINE XR 150 MG CAP.SR.24H PO SCH (08:04)
[2021-11-05] MEDS: FOLIC ACID 1 MG TABLET PO SCH (08:05)
[2021-11-05] MEDS: FAMOTIDINE (20 MG) 20 MG TABLET PO SCH ×2 (08:05→17:21)
[2021-11-05] MEDS: PANTOPRAZOLE 40 MG TABLET.DR PO SCH ×2 (08:05→17:21)
[2021-11-05] MEDS: MULTIVITAMINS,THERAGRAN 1 UDTAB TABLET PO SCH (08:05)
[2021-11-05] MEDS: PROSOURCE / PROSTAT (PYXIS) 30 ML UDC PO SCH (08:05)
[2021-11-05] MEDS: MEROPENEM 1 G in IV NS 0.9% 100 ML IV SCH ×2 (08:29→21:21)
[2021-11-05] MEDS ORDERED: MIDAZOLAM HCL 2 MG/2ML VIAL ONE (08:55)
[2021-11-05] MEDS: MORPHINE SULFATE INJ 2 MG/ML DISP.SYRIN IV PRN ×3 (10:14→20:43)
--- NOTE | 2021-11-05 10:19 | NUR ---
MS RN NOTES PATIENT COMPLAINT OF 9/10 RIGHT ABDOMINAL PAIN AND REQUESTING MEDICATION. PRN MORPHINE 1 MG IVP ADMINISTERED ORDERED. WILL CONTINUE TO MONITOR FOR S/S PAIN.
[2021-11-05 11:02] LABS: BASOPHILS % (AUTO) 0.3 % (0.0-2.0); EOSINOPHILS % (AUTO) 1.5 % (0.0-6.0); HEMATOCRIT 29 % (33-45); HEMOGLOBIN 9.1 g/dL (11.5-14.8); LYMPHOCYTES # (AUTO) 0.6 K/uL (0.8-4.8); LYMPHOCYTES % (AUTO) 26.2 % (20.0-44.0); MEAN CORPUSCULAR HGB CONC 32 g/dl (31.0-36.0); MEAN CORPUSCULAR VOLUME 80 fL (82-100); MONOCYTES # (AUTO) 0.2 K/uL (0.1-1.30); MONOCYTES % (AUTO) 9.2 % (2.0-12.0); NEUTROPHILS # (AUTO) 1.4 K/uL (1.8-8.9); NEUTROPHILS % (AUTO) 62.8 % (43.0-81.0); PLATELET COUNT (AUTO) 130 K/uL (150-450); RED BLOOD CELL COUNT(AUTO) 3.61 MIL/uL (4.0-5.2); WHITE BLOOD COUNT (AUTO) 2.2 K/uL (4.3-11.0)
[2021-11-05] MEDS: SUCRALFATE 1 G/10 ML UDC GT SCH ×3 (11:24→21:21)
[2021-11-05] MEDS: HYDROCODONE/APAP 10/325MG TABLET PO PRN ×2 (11:24→18:49)
[2021-11-05 11:29] LABS: ALBUMIN 2.4 g/dL (3.4-5.0); BILIRUBIN,TOTAL 0.2 mg/dL (0.2-1.0); CREATININE 0.8 mg/dL (0.6-1.3); MAGNESIUM 1.5 mg/dL (1.8-2.4); PHOSPHORUS 2.3 mg/dL (2.5-4.9); POTASSIUM 4.8 mmol/L (3.5-5.1); TOTAL PROTEIN, SERUM 6.1 g/dL (6.4-8.2)
[2021-11-05 12:00] VITALS: BP 125/70
[2021-11-05] MEDS: INSULIN REGULAR, HUMAN 100 UNIT/ML 3 ML VIAL SQ PRN ×2 (12:37→22:04)
[2021-11-05] MEDS ORDERED: K PHOS NEUTRAL 250 MG TABLET PO ONE (16:00)
[2021-11-05 18:00] VITALS: BP 141/75
--- NOTE | 2021-11-05 19:00 | NUR ---
MS RN CLOSING NOTES PATIENT LAYING IN BED A/O X 4, ABLE TO MAKE NEEDS KNOWN. TOLERATING WELL ON ROOM AIR WITH NO S/S RESPIRATORY DISTRESS. R MID THIGH HD CATH IN PLACE WITH DRESSING C/D/I. DEMETRIUS MIDLINE CLEAN, INTACT, AND FLUSHING WELL. COLOSTOMY BAG IN PLACE ON R UPPER ABDOMEN DRAINING LIQUID BROWN STOOL. HUGHES CATHETER REMOVED TODAY PER PATIENT REQUEST AND MD APPROVAL, PATIENT IS ABLE TO AMBULATE TO BATHROOM AND URINATE INDEPENDENTLY. SAFETY MEASURES IN PLACE: BED IN LOWEST LOCKED POSITION, SIDE RAILS UP X 2, CALL LIGHT WITHIN REACH. ALL NEEDS MET. WILL ENDORSE TO OUTCOMES SPECIALIST FOR CHANA.
--- NOTE | 2021-11-05 19:56 | NUR ---
MS RN OPENING NOTES PATIENT RECEIVED IN BED AA/O X 4,TOLERATING WELL ON ROOM AIR WITH NO SIGN SOB/DISTRESS NOTED.R MID THIGH HD CATH IN PLACE WITH DRESSING C/D/I. DEMETRIUS MIDLINE CLEAN, INTACT,PATENT.COLOSTOMY BAG SECURELY IN PLACE ON R UPPER ABDOMEN DRAINING LIQUID BROWN STOOL.SAFETY MEASURES IN PLACE: BED IN LOWEST LOCKED POSITION, SIDE RAILS UP X 2, CALL LIGHT WITHIN REACH. WILL CONTINUE TO MONITOR.
[2021-11-06] MEDS: HYDROCODONE/APAP 10/325MG TABLET PO PRN ×3 (02:04→15:45)
[2021-11-06 02:13] VITALS: BP 125/76
[2021-11-06] MEDS: MORPHINE SULFATE INJ 2 MG/ML DISP.SYRIN IV PRN (05:40)
[2021-11-06 06:10] LABS: BASOPHILS % (AUTO) 0.6 % (0.0-2.0); EOSINOPHILS % (AUTO) 2.6 % (0.0-6.0); HEMATOCRIT 29 % (33-45); HEMOGLOBIN 9.7 g/dL (11.5-14.8); LYMPHOCYTES # (AUTO) 0.8 K/uL (0.8-4.8); LYMPHOCYTES % (AUTO) 33.6 % (20.0-44.0); MEAN CORPUSCULAR HGB CONC 34 g/dl (31.0-36.0); MEAN CORPUSCULAR VOLUME 77 fL (82-100); MONOCYTES # (AUTO) 0.3 K/uL (0.1-1.30); MONOCYTES % (AUTO) 10.8 % (2.0-12.0); NEUTROPHILS # (AUTO) 1.3 K/uL (1.8-8.9); NEUTROPHILS % (AUTO) 52.4 % (43.0-81.0); PLATELET COUNT (AUTO) 147 K/uL (150-450); RED BLOOD CELL COUNT(AUTO) 3.79 MIL/uL (4.0-5.2); WHITE BLOOD COUNT (AUTO) 2.4 K/uL (4.3-11.0)
--- NOTE | 2021-11-06 06:10 | NUR ---
MS RN CLOSING NOTES PATIENT IN BED RESTING COMFORTABLE.A/O X 4.ON ROOM AIR WITH NO SIGN OF SOB/DISTRESS NOTED.R MID THIGH HD CATH,DEMETRIUS MIDLINE CLEAN, INTACT, AND FLUSHING WELL. COLOSTOMY BAG IN PLACE ON R UPPER ABDOMEN DRAINING LIQUID BROWN STOOL. HUGHES CATHETER REMOVED TODAY PER PATIENT REQUEST AND MD APPROVAL, PATIENT IS ABLE TO AMBULATE TO BATHROOM AND URINATE INDEPENDENTLY. SAFETY MEASURES IN PLACE: BED IN LOWEST LOCKED POSITION, SIDE RAILS UP X 2, CALL LIGHT WITHIN REACH. ALL NEEDS MET. WILL ENDORSE TO CHUCK WAGON DRIVER FOR CHANA.
[2021-11-06 06:37] LABS: CALCIUM, SERUM 8.9 mg/dL (8.5-10.1); CREATININE 0.9 mg/dL (0.6-1.3); POTASSIUM 4.6 mmol/L (3.5-5.1)
[2021-11-06] MEDS: INSULIN REGULAR, HUMAN 100 UNIT/ML 3 ML VIAL SQ PRN ×2 (06:58→12:06)
--- NOTE | 2021-11-06 07:00 | NUR ---
MS RN OPENING NOTES PATIENT LAYING IN BED A/O X 4, ABLE TO MAKE NEEDS KNOWN. TOLERATING WELL ON ROOM AIR WITH NO S/S RESPIRATORY DISTRESS. R MID THIGH HD CATH IN PLACE WITH DRESSING C/D/I. DEMETRIUS MIDLINE CLEAN, INTACT, AND FLUSHING WELL. COLOSTOMY BAG IN PLACE ON R UPPER ABDOMEN DRAINING LIQUID BROWN STOOL. SAFETY MEASURES IN PLACE: BED IN LOWEST LOCKED POSITION, SIDE RAILS UP X 2, CALL LIGHT WITHIN REACH. WILL CONTINUE TO MONITOR.
[2021-11-06] MEDS: BLOOD SUGAR DIAGNOSTIC 1 EACH STRIP IN SCH ×3 (07:01→17:30)
[2021-11-06] MEDS: FERROUS SULFATE (325 MG) 325 MG/TAB TABLET PO SCH ×2 (08:13→16:21)
[2021-11-06] MEDS: SUCRALFATE 1 G/10 ML UDC GT SCH ×3 (08:13→16:55)
[2021-11-06] MEDS: FOLIC ACID 1 MG TABLET PO SCH (08:14)
[2021-11-06] MEDS: MULTIVITAMINS,THERAGRAN 1 UDTAB TABLET PO SCH (08:14)
[2021-11-06] MEDS: VENLAFAXINE XR 150 MG CAP.SR.24H PO SCH (08:14)
[2021-11-06] MEDS: PANTOPRAZOLE 40 MG TABLET.DR PO SCH ×2 (08:14→16:22)
[2021-11-06] MEDS: DOCUSATE SODIUM 100 MG CAPSULE PO SCH (08:14)
[2021-11-06] MEDS: FAMOTIDINE (20 MG) 20 MG TABLET PO SCH ×2 (08:14→16:21)
[2021-11-06] MEDS: GLUCERNA SHAKE 237 ML CAN PO SCH ×2 (08:15→16:22)
[2021-11-06] MEDS: MEROPENEM 1 G in IV NS 0.9% 100 ML IV SCH (08:24)
[2021-11-06] MEDS: PROSOURCE / PROSTAT (PYXIS) 30 ML UDC PO SCH (08:24)
[2021-11-06] MEDS ORDERED: VENLAFAXINE XR 75 MG CAP.SR.24H PO SCH (09:00)
--- NOTE | 2021-11-06 09:38 | NUR ---
MS EPPS NOTES PATIENT COMPLAINT OF 11/27 BILATERAL ABDOMINAL PAIN AND REQUESTING MEDICATION. PRN NORCO 5/325 MG PO ADMINISTERED ORDERED. WILL CONTINUE TO MONITOR FOR S/S OF PAIN. Addendum: 11/06/21 at 0941 by YULI NEGRO RN NORCO 10/325 MG PO WAS THE DOSAGE ADMINISTERED
[2021-11-06] MEDS ORDERED: MORPHINE SULFATE INJ 4 MG/ML DISP.SYRIN IV ONE (12:00)
[2021-11-06] MEDS ORDERED: APIXABAN 5 MG TABLET PO SCH (12:07)
--- NOTE | 2021-11-06 16:45 | NUR ---
MS RN NOTES PATIENT COMPLAINT OF 8/10 BILATERAL ABDOMINAL PAIN AND REQUESTING MEDICATION. PRN NORCO 10/325 MG PO ADMINISTERED ORDERED. WILL CONTINUE TO MONITOR FOR S/S OF PAIN.
--- NOTE | 2021-11-06 18:00 | NUR ---
MS ELECTRICIAN'S ASSISTANT NOTES PATIENT INFORMED OF MD DISCHARGE ORDERS. PATIENT VERBALIZED UNDERSTANDING OF ALL MD DISCHARGE INSTRUCTIONS AND SIGNED DISCHARGE INSTRUCTIONS SHEET. PATIENT ALSO VERBALIZED POSSESSION OF ALL BELONGINGS AND SIGNED BELONGINGS SHEET. PATIENT WAS PROVIDED WITH COPIES OF ALL DISCHARGE PAPERWORK INCLUDING PATIENT EDUCATION. ID BAND AND IV LINES REMOVED. PATIENT TRANSFERRED FROM UNIT VIA GURNEY ACCOMPANIED BY 2 QUALITY PROJECT MANAGER EN ROUTE TO [facility]. REPORT WAS CALLED TO SUPRIYA GANDARA. PATIENT LEFT UNIT IN STABLE CONDITION.
== END 2021-11-06 18:00 | DRG 871 ==
LOC: ER 16:20 → ICU 19:33 → TELE 11-04 15:03 → MED 11-04 19:12
PROVIDERS: ADMIT Nurse Practitioner Acute Care; ATTEND Nurse Practitioner Acute Care
PROC: 02HV33Z Insertion of Infusion Device into Superior Vena Cava, Percutaneous Approach (ICD-10-PCS; principal; 2021-11-02)
PROC: B548ZZA Ultrasonography of Superior Vena Cava, Guidance (ICD-10-PCS; 2021-11-02)
PROC: 0DB78ZX Excision of Stomach, Pylorus, Via Natural or Artificial Opening Endoscopic, Diagnostic (ICD-10-PCS; 2021-11-06)
DX: A41.9 Sepsis, unspecified organism (principal); E43 Unspecified severe protein-calorie malnutrition; N17.0 Acute kidney failure with tubular necrosis; R65.21 Severe sepsis with septic shock; E87.1 Hypo-osmolality and hyponatremia; K76.6 Portal hypertension; E87.2 Acidosis; Z68.1 Body mass index [BMI] 19.9 or less, adult; K22.10 Ulcer of esophagus without bleeding; N39.0 Urinary tract infection, site not specified; D75.839 Thrombocytosis, unspecified; G40.909 Epilepsy, unspecified, not intractable, without status epilepticus; Z86.718 Personal history of other venous thrombosis and embolism; Z20.822 Contact with and (suspected) exposure to COVID-19; Z66 Do not resuscitate; G89.4 Chronic pain syndrome; Z93.3 Colostomy status; K76.9 Liver disease, unspecified; Z79.01 Long term (current) use of anticoagulants; Z79.4 Long term (current) use of insulin; Z79.899 Other long term (current) drug therapy; E87.5 Hyperkalemia; E11.65 Type 2 diabetes mellitus with hyperglycemia; E83.51 Hypocalcemia; Z86.59 Personal history of other mental and behavioral disorders; E88.09 Other disorders of plasma-protein metabolism, not elsewhere classified; K44.9 Diaphragmatic hernia without obstruction or gangrene; K21.00 Gastro-esophageal reflux disease with esophagitis, without bleeding; K25.9 Gastric ulcer, unspecified as acute or chronic, without hemorrhage or perforation; K29.70 Gastritis, unspecified, without bleeding; K31.9 Disease of stomach and duodenum, unspecified; E86.0 Dehydration; D64.9 Anemia, unspecified; I10 Essential (primary) hypertension; E83.42 Hypomagnesemia; I48.91 Unspecified atrial fibrillation; D72.819 Decreased white blood cell count, unspecified; B96.89 Other specified bacterial agents as the cause of diseases classified elsewhere; R62.7 Adult failure to thrive
CPT/HCPCS: 36415; 71045-TC; 76770-TC; 80048-TC; 80053-TC; 80076-TC; 80202-TC; 81001; 82272-TC; 82728-TC; 82962-TC; 83540-TC; 83605-TC; 83735-TC; 83880; 84100-TC; 84484-TC; 85025-TC; 85730-TC; 87040-TC; 87081-TC; 87086-TC; 93307-TC; 94799-TC; A6253; C1750; C9113; C9803; G0378; J1644; J1815; J1940; J2185; J2250; J2270; J2704; J3370; J3475; J3490; J7030; J7040; J7042; J7050; J7060

== ENCOUNTER 2021-11-21 15:47 | Inpatient (IN) | payer MEDICARE, OTHER ==
[~2021-11-21] VITALS: Ht 162.6 cm; Wt 49.9 kg
[~2021-11-21 15:47] MED LIST changes: -DOXY100C2 PO; -ERGO500040 PO; -FLUC100T8 PO; -LITH300C4 PO; -NICO-676 TD
[2021-11-21] MEDS ORDERED: ONDANSETRON HCL/PF 4 MG/2 ML VIAL IVP ONE (16:00)
[2021-11-21] MEDS ORDERED: IV NS 0.9% 1,000 ML BAG IV ONE (16:00)
--- NOTE | 2021-11-21 16:05 | NUR ---
DR HERNANDES AT BEDSIDE W/ PATIENT
--- NOTE | 2021-11-21 16:10 | NUR ---
PHLEB TECH AT BEDSIDE FOR BLOOD DRAW
[2021-11-21] MEDS ORDERED: FERR325T23 PO (16:18)
[2021-11-21] MEDS ORDERED: GABA-532 PO (16:18)
[2021-11-21] MEDS ORDERED: MAGN400O6 PO (16:18)
[2021-11-21] MEDS ORDERED: ASCO-340 PO (16:18)
[2021-11-21] MEDS ORDERED: PSYL3.4P6 PO (16:18)
[2021-11-21] MEDS ORDERED: BISA10SU11 RC (16:18)
[2021-11-21] MEDS ORDERED: APIX5TAB PO (16:18)
[2021-11-21] MEDS ORDERED: ACET-868 PO (16:18)
[2021-11-21] MEDS ORDERED: FOLI0.4T6 PO (16:18)
[2021-11-21] MEDS ORDERED: CRAN425C6 PO (16:18)
[2021-11-21] MEDS ORDERED: ZINC50TA69 PO (16:18)
[2021-11-21 16:20] LABS: BASOPHILS # (AUTO) 0.1 K/uL (0.0-0.2); BASOPHILS % (AUTO) 0.7 % (0.0-2.0); EOSINOPHILS % (AUTO) 0.6 % (0.0-6.0); HEMATOCRIT 41 % (33-45); HEMOGLOBIN 13.1 g/dL (11.5-14.8); LYMPHOCYTES # (AUTO) 2.3 K/uL (0.8-4.8); LYMPHOCYTES % (AUTO) 20.5 % (20.0-44.0); MEAN CORPUSCULAR HGB CONC 32 g/dl (31.0-36.0); MEAN CORPUSCULAR VOLUME 79 fL (82-100); MONOCYTES # (AUTO) 0.8 K/uL (0.1-1.30); MONOCYTES % (AUTO) 7.3 % (2.0-12.0); NEUTROPHILS # (AUTO) 7.9 K/uL (1.8-8.9); NEUTROPHILS % (AUTO) 70.9 % (43.0-81.0); PLATELET COUNT (AUTO) 362 K/uL (150-450); RED BLOOD CELL COUNT(AUTO) 5.18 MIL/uL (4.0-5.2); WHITE BLOOD COUNT (AUTO) 11.1 K/uL (4.3-11.0)
[2021-11-21] MEDS ORDERED: PANTOPRAZOLE 40 MG VIAL IV ONE (16:30)
[2021-11-21] MEDS ORDERED: MORPHINE SULFATE INJ 2 MG/ML DISP.SYRIN IV ONE (16:30)
[2021-11-21] MEDS ORDERED: ONDANSETRON HCL/PF 4 MG/2 ML VIAL ONE (16:36)
[2021-11-21] MEDS ORDERED: PANTOPRAZOLE 40 MG VIAL ONE (16:36)
[2021-11-21] MEDS ORDERED: MORPHINE SULFATE INJ 4 MG/ML DISP.SYRIN ONE (16:36)
[2021-11-21 16:51] LABS: ALBUMIN 3.8 g/dL (3.4-5.0); BILIRUBIN,TOTAL 0.3 mg/dL (0.2-1.0); CALCIUM, SERUM 9.5 mg/dL (8.5-10.1); CREATININE 4.8 mg/dL (0.6-1.3); TOTAL PROTEIN, SERUM 9.1 g/dL (6.4-8.2)
--- NOTE | 2021-11-21 17:32 | NUR ---
PT UNABLE TO PROVIDE URINE AT THIS TIME.
[2021-11-21 17:36] LABS: OCCULT BLOOD STOOL POSITIVE (NEGATIVE)
--- NOTE | 2021-11-21 17:50 | NUR ---
URINE SAMPLE COLLECTED AND SENT TO LAB
[2021-11-21 18:16] LABS: POTASSIUM 9.1 mmol/L (3.5-5.1)
--- NOTE | 2021-11-21 18:19 | NUR ---
PT BACK FROM RADIOLOGY
[2021-11-21] MEDS ORDERED: CALCIUM CHLORIDE 1,000 MG/10 ML DISP.SYRIN IV ONE (18:30)
[2021-11-21] MEDS ORDERED: DEXTROSE 50%-WATER 50 ML DISP.SYRIN IV ONE (18:30)
[2021-11-21] MEDS ORDERED: INSULIN REGULAR, HUMAN 100 UNIT/ML 10 ML VIAL IV ONE ×2 (18:30→22:30)
[2021-11-21] MEDS ORDERED: ALBUTEROL FS 2.5 MG/3 ML VIAL.NEB NEB ONE ×2 (18:30→22:30)
[2021-11-21] MEDS ORDERED: SODIUM BICARBONATE SYR 50 MEQ/50 ML DISP.SYRIN IV ONE (18:30)
[2021-11-21] MEDS ORDERED: SODIUM BICARBONATE SYR 50 MEQ/50 ML DISP.SYRIN ONE (18:38)
[2021-11-21] MEDS ORDERED: DEXTROSE 50%-WATER 50 ML DISP.SYRIN ONE ×2 (18:39→22:10)
[2021-11-21] MEDS ORDERED: INSULIN REGULAR, HUMAN 100 UNIT/ML 10 ML VIAL ONE ×2 (18:39→22:10)
[2021-11-21] MEDS ORDERED: CALCIUM CHLORIDE 1,000 MG/10 ML DISP.SYRIN ONE (18:40)
[2021-11-21] MEDS ORDERED: ALBUTEROL FS 2.5 MG/3 ML VIAL.NEB ONE ×2 (19:24→22:48)
[2021-11-21 19:25] LABS: BILIRUBIN,URINE NEGATIVE (NEGATIVE); COLOR,URINE YELLOW (YELLOW); LEUKOCYTE ESTERASE ,URINE SMALL (NEGATIVE); NITRITE, URINE NEGATIVE (NEGATIVE); PROTEIN,URINE TRACE mg/dl (NEGATIVE); UGLUCOSE 250 MG/DL mg/dL (NEGATIVE); UROBILINOGEN,URINE 0.2 EU/dL (0.2)
--- NOTE | 2021-11-21 19:26 | NUR ---
RT AT BEDSIDE FOR BREATHING TX
[2021-11-21 19:29] LABS: BACTERIA,URINE 1+ /HPF (None Seen); RBC,URINE 0-2 /HPF (0-2); SQUAMOUS EPITHELIAL CELL,UR 0-2 /HPF (None Seen)
[2021-11-21 19:30] LABS: COARSE GRANULAR CASTS,URINE Few /LPF (None Seen); FINE GRANULAR CASTS,URINE Few /LPF (None Seen); HYALINE CASTS, URINE Few /LPF (None Seen); URINE AMORPHOUS URATE Few /HPF (None Seen)
[2021-11-21] MEDS ORDERED: ONDANSETRON HCL/PF 4 MG/2 ML VIAL IVP PRN (19:30)
[2021-11-21] MEDS ORDERED: MAG HYDROX/AL HYDROX/SIMETH 30 ML UDC PO PRN (19:30)
[2021-11-21] MEDS ORDERED: MAGNESIUM HYDROXIDE 30 ML UDC PO PRN ×2 (19:30→20:00)
[2021-11-21] MEDS ORDERED: MORPHINE SULFATE INJ 2 MG/ML DISP.SYRIN IV PRN (19:30)
[2021-11-21] MEDS ORDERED: Z GUARD REMEDY 4 OZ OINT TP PRN (19:30)
[2021-11-21] MEDS ORDERED: NA PHOS,M-B/NA PHOS,DI-BA 1 EA ENEMA RC PRN (20:00)
[2021-11-21] MEDS ORDERED: DEXTROSE 50%-WATER 50 ML DISP.SYRIN IV PRN (20:00)
[2021-11-21] MEDS ORDERED: BISACODYL SUPP (10 MG) 10 MG/SUPP.RECT SUPP.RECT RC PRN (20:00)
--- NOTE | 2021-11-21 20:04 | NUR ---
RT AT PT'S BEDSIDE
--- NOTE | 2021-11-21 20:28 | NUR ---
US TECH AT PT'S BEDSIDE
[2021-11-21 20:45] LABS: CALCIUM, SERUM 10.4 mg/dL (8.5-10.1); CREATININE 4.7 mg/dL (0.6-1.3)
--- NOTE | 2021-11-21 20:52 | NUR ---
BP 84/54; NOTIFIED AWILDA DNP ORDERS FOR NS 500ML BOLUS. ORDERS CARRIED OUT. WILL F/U
[2021-11-21] MEDS: IV NS 0.9% 1,000 ML IV PRN (21:00)
[2021-11-21] MEDS ORDERED: SODIUM POLYSTYRENE SULFONATE 15 G/60 ML BOTTLE ONE (22:10)
[2021-11-21] MEDS: BLOOD SUGAR DIAGNOSTIC 1 EACH STRIP IN SCH (22:23)
[2021-11-21] MEDS ORDERED: DEXTROSE 50%-WATER 50 ML DISP.SYRIN IVP ONE (22:30)
[2021-11-21] MEDS ORDERED: SODIUM POLYSTYRENE SULFONATE 15 G/60 ML BOTTLE PO ONE (22:30)
[2021-11-21] MEDS ORDERED: APIXABAN 5 MG TABLET ONE (22:55)
[2021-11-21] MEDS: APIXABAN 5 MG TABLET PO SCH (22:59)
[2021-11-21] MEDS ORDERED: CEFTRIAXONE 1 G in IV D5W 50 ML IV ONE (23:00)
[2021-11-21] MEDS ORDERED: METRONIDAZOLE 500MG/ NS 100ML 500 MG in PREMIX 1 EA IV STA (23:03)
[2021-11-21] MEDS ORDERED: METRONIDAZOLE 500 MG TABLET ONE (23:19)
[2021-11-21] MEDS ORDERED: MORPHINE SULFATE IR 15 MG TABLET ONE (23:19)
[2021-11-21] MEDS ORDERED: CEFTRIAXONE 1 G VIAL ONE (23:19)
[2021-11-21] MEDS ORDERED: METRONIDAZOLE 500MG/ NS 100ML 100 ML IV ONE (23:20)
[2021-11-21] MEDS ORDERED: CEFTRIAXONE 1GM BAG (ER ONLY) 50 ML IV ONE (23:20)
[2021-11-21] MEDS ORDERED: MEROPENEM 500 MG VIAL IV ONE (23:20)
--- NOTE | 2021-11-21 23:27 | NUR ---
FLOOR WAXER AT PT'S BEDSIDE
[2021-11-21] MEDS: MORPHINE SULFATE SR 15 MG TABLET.SA PO SCH (23:53)
[2021-11-22] MEDS ORDERED: MEROPENEM 500 MG in IV NS 0.9% 50 ML IV ONE ×2
[2021-11-22] MEDS ORDERED: INSULIN GLARGINE, 100 UNIT/ML CARTRIDGE SQ ONE (00:32)
[2021-11-22] MEDS: INSULIN GLARGINE, 100 UNIT/ML CARTRIDGE SQ SCH (00:53)
[2021-11-22 01:24] LABS: CALCIUM, SERUM 9.3 mg/dL (8.5-10.1); CREATININE 4.7 mg/dL (0.6-1.3); POTASSIUM 5.7 mmol/L (3.5-5.1)
--- NOTE | 2021-11-22 03:12 | NUR ---
REPORT GIVEN TO GRICELDA HERRERA RN FOR CHANA
--- NOTE | 2021-11-22 03:33 | NUR ---
PT TRANSFERRED TO [facility] VIA ACLS PROTOCOL. PT TOLERATED TRANSFER WELL. ALL BELONGINGS WITH PT.
[2021-11-22 04:00] VITALS: BP 93/62
[2021-11-22] MEDS: IV NS 0.9% 1,000 ML IV PRN (04:16)
--- NOTE | 2021-11-22 06:30 | NUR ---
TD RN PT NOTED WITH INFILTRATED IV SITE; MULTIPLE ATTEMPTS TO START NEW IV WERE UNSUCCESSFUL; ORDER FOR MIDLINE RECEIVED.
[2021-11-22 07:21] LABS: BASOPHILS # (AUTO) 0.1 K/uL (0.0-0.2); BASOPHILS % (AUTO) 0.9 % (0.0-2.0); EOSINOPHILS % (AUTO) 0.3 % (0.0-6.0); HEMATOCRIT 37 % (33-45); HEMOGLOBIN 11.7 g/dL (11.5-14.8); LYMPHOCYTES # (AUTO) 1.6 K/uL (0.8-4.8); LYMPHOCYTES % (AUTO) 10.4 % (20.0-44.0); MEAN CORPUSCULAR HGB CONC 32 g/dl (31.0-36.0); MEAN CORPUSCULAR VOLUME 80 fL (82-100); MONOCYTES # (AUTO) 1.2 K/uL (0.1-1.30); MONOCYTES % (AUTO) 7.6 % (2.0-12.0); NEUTROPHILS # (AUTO) 12.4 K/uL (1.8-8.9); NEUTROPHILS % (AUTO) 80.8 % (43.0-81.0); PLATELET COUNT (AUTO) 333 K/uL (150-450); RED BLOOD CELL COUNT(AUTO) 4.59 MIL/uL (4.0-5.2); WHITE BLOOD COUNT (AUTO) 15.3 K/uL (4.3-11.0)
--- NOTE | 2021-11-22 07:25 | NUR ---
RN OPENING NOTE RECEIVED PATIENT IN BED AWAKE, ALERT/ORIENTED X 2-3, VERBALLY RESPONSIVE. ON ROOM AIR, TOLERATING WELL WITH SATURATION AT 99%. BREATHING EVEN AND UNLABORED. NO SIGNS OF ANY RESPIRATORY DISTRESS NOTED. NO C/O OF PAIN OR DISCOMFORT AT THE TIME. NOTED WITH IV ACCESS ON LEFT FOREARM #22, INTACT, NOT PATENT. AWAITING FOR MIDLINE INSERTION. NOTED WITH RIGHT ABDOMEN COLOSTOMY SITE, CLEAN AND DRY. ALL SAFETY MEASURES IN PLACE. HOB ELEVATED BED LOCKED IN LOWEST POSITION WITH SIDE RAILS UP AND CALL LIGHT WITHIN REACH. WILL CONTINUE TO MONITOR AND REASSESS PATIENT FOR ANY CHANGES DURING SHIFT.
[2021-11-22] MEDS: BLOOD SUGAR DIAGNOSTIC 1 EACH STRIP IN SCH ×4 (07:30→23:49)
[2021-11-22 07:57] LABS: ALBUMIN 3.1 g/dL (3.4-5.0); BILIRUBIN,TOTAL 0.2 mg/dL (0.2-1.0); CALCIUM, SERUM 9.3 mg/dL (8.5-10.1); CREATININE 5.2 mg/dL (0.6-1.3); MAGNESIUM 1.3 mg/dL (1.8-2.4); PHOSPHORUS 7.1 mg/dL (2.5-4.9); TOTAL PROTEIN, SERUM 7.4 g/dL (6.4-8.2)
[2021-11-22 08:00] VITALS: BP 99/59
[2021-11-22] MEDS: PANTOPRAZOLE 40 MG TABLET.DR PO SCH (08:32)
[2021-11-22] MEDS: ASCORBIC ACID 500 MG TABLET PO SCH (08:32)
[2021-11-22] MEDS: FERROUS SULFATE (325 MG) 325 MG/TAB TABLET PO SCH ×2 (08:32→17:36)
[2021-11-22] MEDS: VENLAFAXINE XR 150 MG CAP.SR.24H PO SCH (08:32)
[2021-11-22] MEDS: SUCRALFATE 1 G TABLET PO SCH ×2 (08:32→17:36)
[2021-11-22] MEDS: FOLIC ACID 1 MG TABLET PO SCH (08:32)
[2021-11-22] MEDS: DOCUSATE SODIUM 100 MG CAPSULE PO SCH (08:32)
[2021-11-22] MEDS: MULTIVITAMINS,THERAGRAN 1 UDTAB TABLET PO SCH (08:32)
[2021-11-22] MEDS: MORPHINE SULFATE SR 15 MG TABLET.SA PO SCH ×2 (08:33→23:55)
[2021-11-22] MEDS: APIXABAN 5 MG TABLET PO SCH ×2 (08:33→23:59)
[2021-11-22] MEDS: INSULIN REGULAR, HUMAN 100 UNIT/ML 3 ML VIAL SQ PRN ×2 (08:35→12:16)
[2021-11-22 08:36] LABS: POTASSIUM 7.2 mmol/L (3.5-5.1)
[2021-11-22] MEDS: PROSOURCE / PROSTAT (PYXIS) 30 ML UDC PO SCH (08:39)
[2021-11-22] MEDS ORDERED: INSULIN REGULAR, HUMAN 100 UNIT/ML 10 ML VIAL IV ONE (09:00)
[2021-11-22] MEDS ORDERED: DEXTROSE 50%-WATER 50 ML DISP.SYRIN IVP ONE ×2 (09:00→19:00)
[2021-11-22] MEDS ORDERED: ALBUTEROL FS 2.5 MG/3 ML VIAL.NEB NEB ONE (09:00)
[2021-11-22] MEDS ORDERED: SODIUM POLYSTYRENE SULFONATE 15 G/60 ML BOTTLE PO ONE ×2 (09:00→19:00)
[2021-11-22 12:00] VITALS: BP 91/54
[2021-11-22] MEDS: MEROPENEM 500 MG in IV NS 0.9% 50 ML IV SCH (12:18)
[2021-11-22 16:00] VITALS: BP 90/62
[2021-11-22 16:30] LABS: CALCIUM, SERUM 9.1 mg/dL (8.5-10.1); CREATININE 5.7 mg/dL (0.6-1.3)
[2021-11-22 16:33] LABS: POTASSIUM 7.2 mmol/L (3.5-5.1)
--- NOTE | 2021-11-22 16:38 | NUR ---
critical labs relayed to [facility] NP.
[2021-11-22] MEDS ORDERED: INSULIN REGULAR, HUMAN 100 UNIT/ML 10 ML VIAL SQ ONE (19:00)
--- NOTE | 2021-11-22 19:08 | NUR ---
S/P HD ACCESS PACEMENT, DR. ONTIVEROS NOTIFIED NEED HD ORDER AND RELAYED CURRENT LABS W/ K 7.2.
--- NOTE | 2021-11-22 19:09 | NUR ---
DIALYSIS LEGACY MADE AWARE.
--- NOTE | 2021-11-22 19:22 | NUR ---
RN CLOSING NOTES NO SIGNIFICANT CHANGES IN PATIENT CONDITION THROUGHOUT SHIFT. PATIENT IN BED AWAKE, ALERT/ORIENTED X 2-3, VERBALLY RESPONSIVE. ON ROOM AIR, TOLERATING WELL. BREATHING EVEN AND UNLABORED. NO SIGNS OF ANY RESPIRATORY DISTRESS NOTED. NO C/O OF PAIN OR DISCOMFORT AT THE TIME. NOTED WITH IV ACCESS ON LEFT FOREARM #22, INTACT, NOT PATENT, DEMETRIUS MIDLINE, PATENT AND INTACT, RIGHT IJ HD CATH. NOTED WITH RIGHT ABDOMEN COLOSTOMY SITE, CLEAN AND DRY. HUGHES CATH IN PLACE, PATIENT ANURIC. ALL DUE MEDS GIVEN ORDERED. KEPT PATIENT CLEAN DRY AND COMFORTABLE. ALL SAFETY MEASURES IN PLACE. HOB ELEVATED BED LOCKED IN LOWEST POSITION WITH SIDE RAILS UP AND CALL LIGHT WITHIN REACH. ENDORSED TO CHARTER PILOT NURSE FOR CONTINUITY OF CARE.
[2021-11-22 20:00] VITALS: BP 126/87
--- NOTE | 2021-11-22 20:35 | NUR ---
RN NOTE PT WILL START HEMODIALYSIS, WITH RIJ HD CATH IN PLACE. PT AWAKE AND ALERT ORIENTED X3. NOT IN ANY DISTRESS. DEMETRIUS ML INTACT AND PATENT, IVF DISCONTINUED ORDERED. HUGHES IN PLACE WITH NO OUTPUT NOTED. COLOSTOMY BAG IN PLACE, DRAINED 450ML LIQUID BROWN OUTPUT. WILL CONTINUE TO MONITOR/
[2021-11-22] MEDS ORDERED: ALBUMIN 25% 25 GM in PREMIX 1 EA IV PRN ×4 (22:00)
[2021-11-22] MEDS ORDERED: ALBUMIN 25% 100 ML IV ONE (22:14)
--- NOTE | 2021-11-22 23:43 | NUR ---
RN NOTE PT DONE WITH DIALYSIS. PT TOLERATED. 500ML OUT. WILL GIVE DUE MEDS.
[2021-11-22] MEDS: ZINC SULFATE 220 MG CAPSULE PO SCH (23:54)
[2021-11-23] VITALS: BP 110/70
[2021-11-23] MEDS: INSULIN GLARGINE, 100 UNIT/ML CARTRIDGE SQ SCH ×2 (00:01→22:33)
[2021-11-23] MEDS: MIDODRINE HCL (5MG) 5 MG TABLET PO SCH ×4 (00:36→16:47)
[2021-11-23] MEDS: MEROPENEM 500 MG in IV NS 0.9% 50 ML IV SCH ×3 (00:36→23:19)
--- NOTE | 2021-11-23 02:15 | NUR ---
RN NOTE PT NOTED WITH LOW BP IN 70S, 75/45 HR 109. MIDODRINE GIVEN AT 0036. PT SLEEPING, AROUSES EASILY,DENIES ANY PAIN OR SOB. NOTIFIED DORMITORY COUNSELOR ARNOLDO ORDERED TO GIVE ALBUMIN 50GRAMS IV.
[2021-11-23] MEDS ORDERED: ALBUMIN 25% 100 ML IV ONE (02:24)
[2021-11-23] MEDS ORDERED: ALBUMIN 25% 50 GM in PREMIX 1 EA IV ONE (02:30)
[2021-11-23 04:00] VITALS: BP 93/79
[2021-11-23 06:38] LABS: BASOPHILS % (AUTO) 0.5 % (0.0-2.0); EOSINOPHILS % (AUTO) 0.9 % (0.0-6.0); HEMATOCRIT 21 % (33-45); LYMPHOCYTES # (AUTO) 0.6 K/uL (0.8-4.8); LYMPHOCYTES % (AUTO) 18.8 % (20.0-44.0); MEAN CORPUSCULAR HGB CONC 34 g/dl (31.0-36.0); MEAN CORPUSCULAR VOLUME 78 fL (82-100); MONOCYTES # (AUTO) 0.6 K/uL (0.1-1.30); MONOCYTES % (AUTO) 17.2 % (2.0-12.0); NEUTROPHILS % (AUTO) 62.6 % (43.0-81.0); PLATELET COUNT (AUTO) 87 K/uL (150-450); RED BLOOD CELL COUNT(AUTO) 2.69 MIL/uL (4.0-5.2); WHITE BLOOD COUNT (AUTO) 3.3 K/uL (4.3-11.0)
--- NOTE | 2021-11-23 07:02 | NUR ---
RN NOTE PT SLEEPING, AROUSES EASILY. NOT IN ANY DISTRESS. ON O2 AT 2L. DENIES SOB OR PAIN AT THIS TIME. PT LATEST BP 98/52. SR ON TELE MONITOR HR 92. HUGHES IN PLACE, WITH 5ML URINE OUTPUT. 900ML TOTAL BM. REMAIN AFEBRILE. WILL ENDORSE TO NEXT SHIFT NURSE FOR CHANA
--- NOTE | 2021-11-23 07:37 | NUR ---
tele/diandra note rn opening note PATIENT IS ALERT AND ORIENTED X2.PATIENT IS VERBALLY RESPONSIVE.PATIENT COMPLAINS OF NO PAIN/DISCOMFORT/RESPIRATORY DISTRESS. PATIENT IS ON NASAL CANNULA. PATIENT HAS HUGHES CATHETER DRAINING TO GRAVITY.PATIENT HAS IV ACCESS. ALL SAFETY MEASURES IN PLACE.CALL LIGHT WITHIN REACH, BED AT LOWEST POSITION, BED LOCKED IN LOWEST POSITION. BEDSIDE TABLE WITHIN REACH OF PATIENT.
[2021-11-23 07:52] LABS: CALCIUM, SERUM 7.5 mg/dL (8.5-10.1); CREATININE 3.2 mg/dL (0.6-1.3); POTASSIUM 4.2 mmol/L (3.5-5.1)
[2021-11-23 08:00] VITALS: BP_SYST 83; BP_SYST 92; BP_DIAS 42; BP_DIAS 63
[2021-11-23] MEDS: BLOOD SUGAR DIAGNOSTIC 1 EACH STRIP IN SCH ×4 (08:22→22:31)
[2021-11-23] MEDS: ASCORBIC ACID 500 MG TABLET PO SCH (08:34)
[2021-11-23] MEDS: SUCRALFATE 1 G TABLET PO SCH ×3 (08:35→16:46)
[2021-11-23] MEDS: FERROUS SULFATE (325 MG) 325 MG/TAB TABLET PO SCH ×5 (08:35→17:08)
[2021-11-23] MEDS: MULTIVITAMINS,THERAGRAN 1 UDTAB TABLET PO SCH (08:35)
[2021-11-23] MEDS: FOLIC ACID 1 MG TABLET PO SCH (08:35)
[2021-11-23] MEDS: DOCUSATE SODIUM 100 MG CAPSULE PO SCH (08:37)
[2021-11-23] MEDS: PANTOPRAZOLE 40 MG TABLET.DR PO SCH (08:37)
[2021-11-23] MEDS: APIXABAN 5 MG TABLET PO SCH ×2 (08:41→20:32)
[2021-11-23] MEDS: INSULIN REGULAR, HUMAN 100 UNIT/ML 3 ML VIAL SQ PRN ×3 (08:55→22:34)
[2021-11-23] MEDS: VENLAFAXINE XR 150 MG CAP.SR.24H PO SCH (09:00)
[2021-11-23] MEDS: MORPHINE SULFATE SR 15 MG TABLET.SA PO SCH ×2 (09:03→20:27)
[2021-11-23] MEDS: PROSOURCE / PROSTAT (PYXIS) 30 ML UDC PO SCH (09:19)
--- NOTE | 2021-11-23 10:52 | NUR ---
EMPTIED 100 ML OSTOMY BAG
[2021-11-23 11:06] LABS: LYMPHOCYTES % (MANUAL) 17 % (16-48); MONOCYTES % (MANUAL) 9 % (0-11.0); NEUTROPHILS % (MANUAL) 74 (42-76)
[2021-11-23 12:00] VITALS: BP_SYST 92; BP_SYST 98; BP_DIAS 52; BP_DIAS 63
--- NOTE | 2021-11-23 13:00 | NUR ---
Leaked ostomy bag changed it
[2021-11-23 16:00] VITALS: BP 88/45
[2021-11-23] MEDS: ALBUMIN 25% 25 GM in PREMIX 1 EA IV PRN (17:02)
--- NOTE | 2021-11-23 17:02 | NUR ---
DIALYSIS NURSE HERE
--- NOTE | 2021-11-23 17:06 | NUR ---
PER DIALYSIS NURSE DID NOT ADMINISTER SUCRALFATE AND FERROUS SULFATE AND TO HOLD IT. Addendum: 11/23/21 at 1855 by NAYELY LOWRY RN HELD MEDICATION PATIENT ON DIALYSIS
--- NOTE | 2021-11-23 18:48 | NUR ---
RN NOTE DR AWARE OF PATIENTS MRSA RESULT BACTROBAN 2% ORDERED
--- NOTE | 2021-11-23 18:56 | NUR ---
tele/diandra note RN CLOSING NOTE PATIENT IS ALERT AND ORIENTED X3.PATIENT IS VERBALLY RESPONSIVE.PATIENT COMPLAINS OF NO DISCOMFORT/PAIN DURING THIS TIME. PATIENT IS ON NASAL CANNULA.PATIENT IS SINUS RHYTHM 76. PATIENT HAS HUGHES CATHETER DRAINING TO GRAVITY.SMALL YELLOW URINE OUTPUT.PATIENT HAS IV ACCESS.IV ACCESS PATENT AND FLUSHING WELL. PATIENT BLOOD PRESSURE IN LOW 80S/90S. GIVEN MIDODRINE TO INCREASE BLOOD PRESSURE. CHANGED OSTOMY BAG BECAUSE OF LEAKAGE. OSTOMY BAG WORKING WELL. PATIENT HAD HEMODIALYSIS. HEMODIALYSIS STOPPED DUE TO LOW BP. ALL SAFETY MEASURES IN PLACE.CALL LIGHT WITHIN REACH, BED IN LOWEST POSITION, BED LOCKED, SIDE RAILS UP X2.BEDSIDE TABLE WITHIN REACH OF PATIENT.
--- NOTE | 2021-11-23 19:50 | NUR ---
[facility] RN OPENING NOTE RECEIVED PATIENT ON BED ALERT AND ORIENTED X3. PATIENT ABLE TO MAKE NEEDS KNOWN. ON 2L NASAL CANNULA. ON TELE MONITORING CURRENTLY READING SR. PATIENT HAS HUGHES CATHETER DRAINING TO GRAVITY. IV ACCESS ON DEMETRIUS MIDLINE AND LFA #22G INTACT AND PATENT. NOTED WITH OSTOMY BAG IN PLACED. WITH RIJ HD CATH. ALL SAFETY MEASURES IN PLACE.CALL LIGHT WITHIN REACH, BED IN LOWEST POSITION, BED LOCKED, SIDE RAILS UP X2.BEDSIDE TABLE WITHIN REACH. WILL CONT TO MONITOR THROUGHOUT THE SHIFT.
[2021-11-23 20:00] VITALS: BP 101/52
[2021-11-23] MEDS: PANTOPRAZOLE 40 MG VIAL IV SCH (20:27)
[2021-11-23] MEDS: HYDROCODONE/APAP 5/325MG TABLET PO PRN (20:56)
[2021-11-23] MEDS: MUPIROCIN OINT 2% 22 GM TUBE NS SCH (21:56)
--- NOTE | 2021-11-23 22:00 | NUR ---
RN NOTE EMPTIED OSTOMY BAG 100 ML, IV ACCESS ON LFA DISLODGED.
[2021-11-23] MEDS: ZINC SULFATE 220 MG CAPSULE PO SCH (22:36)
[2021-11-23] MEDS: TEMAZEPAM 15 MG CAPSULE PO PRN (22:46)
[2021-11-24] VITALS: BP 81/49
--- NOTE | 2021-11-24 03:06 | NUR ---
RN NOTE CHECKED BP USING MANUAL CUFF AT 75/42, INFORMED MODELING AGENCY MANAGER DOC ARNOLDO. 500 ML BOLUS NS ORDERED, CARRIED OUT. WILL CONTINUE TO MONITOR PATIENT. CN MADE AWARE
[2021-11-24 04:00] VITALS: BP 81/49
--- NOTE | 2021-11-24 07:00 | NUR ---
[facility] RN CLOSING NOTE RECEIVED PATIENT ON BED ALERT AND ORIENTED X3. PATIENT ABLE TO MAKE NEEDS KNOWN. ON RA TOLERATING WELL. ON TELE MONITORING CURRENTLY READING SR. PATIENT HAS HUGHES CATHETER DRAINING TO GRAVITY. IV ACCESS ON DEMETRIUS MIDLINE. WITH OSTOMY BAG DRAINING WELL. NOTEDWITH RIJ HD CATH. ALL SAFETY MEASURES IN PLACE.CALL LIGHT WITHIN REACH, BED IN LOWEST POSITION, BED LOCKED, SIDE RAILS UP X2.BEDSIDE TABLE WITHIN REACH. WILL CONT TO MONITOR THROUGHOUT THE SHIFT.
[2021-11-24 07:17] LABS: BASOPHILS % (AUTO) 0.9 % (0.0-2.0); EOSINOPHILS % (AUTO) 2.6 % (0.0-6.0); HEMATOCRIT 24 % (33-45); LYMPHOCYTES % (AUTO) 26.7 % (20.0-44.0); MEAN CORPUSCULAR HGB CONC 33 g/dl (31.0-36.0); MEAN CORPUSCULAR VOLUME 79 fL (82-100); MONOCYTES # (AUTO) 0.6 K/uL (0.1-1.30); MONOCYTES % (AUTO) 16.5 % (2.0-12.0); NEUTROPHILS % (AUTO) 53.3 % (43.0-81.0); PLATELET COUNT (AUTO) 118 K/uL (150-450); RED BLOOD CELL COUNT(AUTO) 3.09 MIL/uL (4.0-5.2); WHITE BLOOD COUNT (AUTO) 3.8 K/uL (4.3-11.0)
[2021-11-24 07:50] LABS: CALCIUM, SERUM 8.1 mg/dL (8.5-10.1); CREATININE 3.2 mg/dL (0.6-1.3); POTASSIUM 4.6 mmol/L (3.5-5.1)
[2021-11-24 08:00] VITALS: BP 88/41
--- NOTE | 2021-11-24 08:14 | NUR ---
RN OPENING NOTE RECEIVED PATIENT ON BED ALERT AND ORIENTED X3. PATIENT ABLE TO MAKE NEEDS KNOWN. ON 2L NASAL CANNULA. ON TELE MONITORING CURRENTLY READING SR. PATIENT HAS HUGHES CATHETER DRAINING TO GRAVITY. IV ACCESS ON DEMETRIUS MIDLINE AND LFA #22G INTACT AND PATENT. NOTED WITH OSTOMY BAG IN PLACED. WITH RIJ HD CATH. ALL SAFETY MEASURES IN PLACE. WILL CONT TO MONITOR THROUGHOUT SHIFT.
[2021-11-24] MEDS: BLOOD SUGAR DIAGNOSTIC 1 EACH STRIP IN SCH ×4 (08:36→22:35)
[2021-11-24] MEDS: ASCORBIC ACID 500 MG TABLET PO SCH (08:36)
[2021-11-24] MEDS: FOLIC ACID 1 MG TABLET PO SCH (08:36)
[2021-11-24] MEDS: SUCRALFATE 1 G TABLET PO SCH ×2 (08:36→16:06)
[2021-11-24] MEDS: PANTOPRAZOLE 40 MG VIAL IV SCH ×2 (08:36→22:21)
[2021-11-24] MEDS: MULTIVITAMINS,THERAGRAN 1 UDTAB TABLET PO SCH (08:36)
[2021-11-24] MEDS: VENLAFAXINE XR 150 MG CAP.SR.24H PO SCH (08:37)
[2021-11-24] MEDS: MIDODRINE HCL (5MG) 5 MG TABLET PO SCH ×3 (08:38→16:08)
[2021-11-24] MEDS: DOCUSATE SODIUM 100 MG CAPSULE PO SCH (08:38)
[2021-11-24] MEDS: MORPHINE SULFATE SR 15 MG TABLET.SA PO SCH ×2 (08:38→22:21)
[2021-11-24] MEDS: MUPIROCIN OINT 2% 22 GM TUBE NS SCH ×2 (08:39→22:22)
[2021-11-24] MEDS: PROSOURCE / PROSTAT (PYXIS) 30 ML UDC PO SCH (08:39)
[2021-11-24] MEDS: APIXABAN 5 MG TABLET PO SCH ×2 (08:40→22:19)
[2021-11-24 10:17] LABS: BAND % (MANUAL) 2 % (0.0-5.0); EOSINOPHILS % (MANUAL) 1 % (0-4); LYMPHOCYTES % (MANUAL) 28 % (16-48); MONOCYTES % (MANUAL) 9 % (0-11.0); NEUTROPHILS % (MANUAL) 60 (42-76)
[2021-11-24] MEDS: ALBUMIN 25% 25 GM in PREMIX 1 EA IV PRN (10:52)
[2021-11-24] MEDS: MEROPENEM 500 MG in IV NS 0.9% 50 ML IV SCH (11:06)
[2021-11-24 12:00] VITALS: BP 88/55
[2021-11-24] MEDS: HYDROCODONE/APAP 5/325MG TABLET PO PRN (14:45)
[2021-11-24 16:00] VITALS: BP 130/72
[2021-11-24] MEDS ORDERED: NEPRO VAN 237 ML CAN PO PRN (17:00)
--- NOTE | 2021-11-24 19:10 | NUR ---
[facility] RN OPENING NOTE RECEIVED PATIENT ON BED ALERT AND ORIENTED X3. PATIENT ABLE TO MAKE NEEDS KNOWN. ON 2L NASAL CANNULA. ON TELE MONITORING CURRENTLY READING SR. PATIENT HAS HUGHES CATHETER DRAINING TO GRAVITY. IV ACCESS ON DEMETRIUS MIDLINE AND LFA #22G INTACT AND PATENT. NOTED WITH OSTOMY BAG IN PLACED. WITH R IJ HD CATH. ALL SAFETY MEASURES IN PLACE.CALL LIGHT WITHIN REACH, BED IN LOWEST POSITION, BED LOCKED, SIDE RAILS UP X2.BEDSIDE TABLE WITHIN REACH. WILL CONT TO MONITOR THROUGHOUT THE SHIFT.
--- NOTE | 2021-11-24 19:24 | NUR ---
RN CLOSING NOTE PATIENT ON BED ALERT AND ORIENTED X3. PATIENT ABLE TO MAKE NEEDS KNOWN. ON 2L NASAL CANNULA.SATING 98%. ON TELE MONITOR READING SR. PATIENT HAS HUGHES CATHETER DRAINING TO GRAVITY. IV ACCESS ON DEMETRIUS MIDLINE AND LFA #22G INTACT AND PATENT. NOTED WITH OSTOMY BAG IN PLACED. WITH RIJ HD CATH. ALL SAFETY MEASURES IN PLACE. WILL ENDORSE TO RFID DEVELOPER NURSE FOR CHANA.
[2021-11-24 22:00] VITALS: BP 108/62
[2021-11-24] MEDS: ZINC SULFATE 220 MG CAPSULE PO SCH (22:18)
[2021-11-24] MEDS: INSULIN GLARGINE, 100 UNIT/ML CARTRIDGE SQ SCH (22:37)
[2021-11-24] MEDS: INSULIN REGULAR, HUMAN 100 UNIT/ML 3 ML VIAL SQ PRN (22:37)
[2021-11-24] MEDS: TEMAZEPAM 15 MG CAPSULE PO PRN (23:14)
[2021-11-25] VITALS: BP 111/71
[2021-11-25] MEDS: MEROPENEM 500 MG in IV NS 0.9% 50 ML IV SCH ×3 (00:42→23:24)
[2021-11-25 04:00] VITALS: BP 112/65
[2021-11-25] MEDS: HYDROCODONE/APAP 5/325MG TABLET PO PRN ×2 (04:16→12:44)
--- NOTE | 2021-11-25 07:00 | NUR ---
RN NOTES PATIENT REMAINS STABLE NO SIGNIFICANT CHANGES IN HEALTH CONDITION. ALL DUE MEDS GIVEN ORDERED. STILL WITH IV ACCESS AT R UA MIDLINE PATENT FLUSHES WELL. WITH IJ CATH INTACT. HUGHES CATHETER DRAINING WELL. ALL DUE MEDS GIVEN ORDERED. ALL SAFETY MEASURES IN PLACE AT ALL TIMES. WILL ENDORSED TO MORNING SHIFT FOR CHANA
--- NOTE | 2021-11-25 07:43 | NUR ---
[facility] RN OPENING NOTE PATIENT IS IN BED, ALERT AND ORIENTED X4.PATIENT IS ON ROOM AIR AND SWITCHES NASAL CANNULA ON 2L. PATIENT IS ON TELE MONITOR.PATIENT HAS HUGHES CATHETER DRAINING TO GRAVITY. PATIENT HAS IV ACCESS ON DEMETRIUS MIDLINE AND LFA IV GAUGE. ALL SAFETY MEASURES IN PLACE.CALL LIGHT WITHIN REACH. BED LOCKED IN LOWEST POSITION.SIDE RAILS UP X2. BEDSIDE TABLE WITHIN REACH. WILL CONTINUE TO ASSESS THROUGHOUT SHIFT.
[2021-11-25 07:58] LABS: CALCIUM, SERUM 8.2 mg/dL (8.5-10.1); CREATININE 1.6 mg/dL (0.6-1.3); POTASSIUM 4.8 mmol/L (3.5-5.1)
[2021-11-25 08:00] VITALS: BP 99/58
[2021-11-25] MEDS: SUCRALFATE 1 G TABLET PO SCH ×2 (08:07→17:05)
--- NOTE | 2021-11-25 08:07 | NUR ---
CRITICAL LAB GLUCOSE 499 Addendum: 11/25/21 at 0827 by NAYELY LOWRY RN FINGERSTICK GLUCOSE 420. NOTIFIED DR. VASQUEZ. ADMINSTERED 10 UNITS OF INSULIN PER SLIDING SCALE
[2021-11-25] MEDS: BLOOD SUGAR DIAGNOSTIC 1 EACH STRIP IN SCH ×4 (08:08→21:11)
[2021-11-25] MEDS: INSULIN REGULAR, HUMAN 100 UNIT/ML 3 ML VIAL SQ PRN ×4 (08:11→21:12)
[2021-11-25 08:16] LABS: BASOPHILS % (AUTO) 0.3 % (0.0-2.0); EOSINOPHILS % (AUTO) 3.4 % (0.0-6.0); HEMATOCRIT 25 % (33-45); HEMOGLOBIN 8.3 g/dL (11.5-14.8); LYMPHOCYTES # (AUTO) 0.7 K/uL (0.8-4.8); LYMPHOCYTES % (AUTO) 25.3 % (20.0-44.0); MEAN CORPUSCULAR HGB CONC 34 g/dl (31.0-36.0); MEAN CORPUSCULAR VOLUME 80 fL (82-100); MONOCYTES # (AUTO) 0.3 K/uL (0.1-1.30); MONOCYTES % (AUTO) 11.9 % (2.0-12.0); NEUTROPHILS # (AUTO) 1.6 K/uL (1.8-8.9); NEUTROPHILS % (AUTO) 59.1 % (43.0-81.0); PLATELET COUNT (AUTO) 93 K/uL (150-450); RED BLOOD CELL COUNT(AUTO) 3.06 MIL/uL (4.0-5.2); WHITE BLOOD COUNT (AUTO) 2.7 K/uL (4.3-11.0)
[2021-11-25] MEDS: FERROUS SULFATE (325 MG) 325 MG/TAB TABLET PO SCH ×2 (08:39→17:05)
[2021-11-25] MEDS: DOCUSATE SODIUM 100 MG CAPSULE PO SCH (08:39)
[2021-11-25] MEDS: ASCORBIC ACID 500 MG TABLET PO SCH (08:39)
[2021-11-25] MEDS: MULTIVITAMINS,THERAGRAN 1 UDTAB TABLET PO SCH (08:39)
[2021-11-25] MEDS: FOLIC ACID 1 MG TABLET PO SCH (08:39)
[2021-11-25] MEDS: MIDODRINE HCL (5MG) 5 MG TABLET PO SCH ×3 (08:40→17:15)
[2021-11-25] MEDS: PANTOPRAZOLE 40 MG VIAL IV SCH ×2 (08:40→20:52)
[2021-11-25] MEDS: MORPHINE SULFATE SR 15 MG TABLET.SA PO SCH ×3 (08:41→20:53)
[2021-11-25] MEDS: APIXABAN 5 MG TABLET PO SCH ×2 (08:59→21:03)
[2021-11-25] MEDS: VENLAFAXINE XR 150 MG CAP.SR.24H PO SCH (09:00)
[2021-11-25] MEDS: PROSOURCE / PROSTAT (PYXIS) 30 ML UDC PO SCH (09:00)
--- NOTE | 2021-11-25 09:03 | NUR ---
HOLD ELIQUIS YUMIKO KING HOLD EFFEXOR FOR NOW DUE TO MORPHINE DRUG INTERACTION
--- NOTE | 2021-11-25 09:56 | NUR ---
Hold HD treatment per Dr Henry.
--- NOTE | 2021-11-25 11:02 | NUR ---
CHANGED OSTOMY BAG
--- NOTE | 2021-11-25 11:17 | NUR ---
RN NURSING NOTE ADMINISTERED MORPHINE SULFATE 15 MG TABLET 1 TIME AT 0841
[2021-11-25] MEDS: MUPIROCIN OINT 2% 22 GM TUBE NS SCH ×2 (11:23→20:54)
[2021-11-25 12:00] VITALS: BP 123/66
--- NOTE | 2021-11-25 13:18 | NUR ---
FAMILY AT BEDSIDE
[2021-11-25 16:00] VITALS: BP 110/51
--- NOTE | 2021-11-25 16:23 | NUR ---
CHANGED OSTOMY BAG DUE TO LEAKAGE
--- NOTE | 2021-11-25 18:31 | NUR ---
TELE/[facility] RN CLOSING NOTE PATIENT IS IN BED. PATIENT IS ALERT AND ORIENTED X3-4. PATIENT ABLE TO MAKE NEEDS KNOWN. PATIENT IS ON 2 L NASAL CANNULA AND/OR ROOM AIR. PATIENT ON TELE MONITOR CURRENTLY READING ON SINUS RHYTHM 76. PATIENT HAS OSTOMY BAG. CHANGED IT TWICE DURING SHIFT DUE TO LEAKAGE. NEW OSTOMY BAG IN PLACE. PATIENT HAS HUGHES CATHETER, YELLOW COLOR DRAINING TO GRAVITY. PATIENT HAS RIGHT UPPER ARM MIDLINE AND RIGHT INTERNAL JUGULAR CATH FOR HEMODIALYSIS. IV PATENT AND FLUSHING WELL. EARLIER IN SHIFT, BS [address] VASQUEZ AND ADMINSTERED 10 UNITS OF INSULIN PER SLIDING SCALE. NOTIFIED.1200 BLOOD SUGAR WAS 173 ADMINSTERED 3 UNITS OF INSULIN AND DINNER TIME INSULIN WAS 274 UNITS ADMINSTERED 6 UNITS INSULIN.ALL SAFETY MEASURES IN PLACE. BED LOCKED AND IN LOWEST POSITION, CALL LIGHT WITHIN REACH.SIDE RAILS X2. FAMILY WAS AT BEDSIDE.
--- NOTE | 2021-11-25 19:15 | NUR ---
RN NOTES RECEIVED PT FOR CONTINUITY OF CARE. PATIENT A/OX4 IN NO S/SX OF ACUTE DISTRESS AT THIS TIME; CURRENTLY ON ROOM AIR WITH 02 SAT >95% AT THIS TIME. WITH IV ACCESS PATENT, INTACT AND FLUSHING WELL. WITH COLOSTOMY INTACT AND SECURED, WITH MODERATE AMOUNT OF OUTPUT AT THIS TIME. ALSO HAS HUGHES CATH IN PLACE, MODERATE URINE OUTPUT NOTED. WILL ENSURE SAFETY MEASURES WITHIN THE SHIFT. PATIENT BED ALARM IS ON. HEAD OF BED ELEVATED. BED IS LOCKED, IN LOWEST POSITION AND SIDE RAILS UP. CALL LIGHT WITHIN REACH OF THE PATIENT. APPLICABLE ISOLATION PRECAUTIONS IN PLACE. WILL CONTINUE TO MONITOR AND REASSESS FOR ANY CHANGES AND WILL CARRY OUT ANY ONGOING AND ACTIVE MD ORDER.
[2021-11-25 20:00] VITALS: BP 125/67
[2021-11-25] MEDS ORDERED: VENLAFAXINE XR 150 MG CAP.SR.24H PO ONE (20:30)
[2021-11-25] MEDS: ZINC SULFATE 220 MG CAPSULE PO SCH (21:03)
[2021-11-25] MEDS ORDERED: INSULIN GLARGINE, 100 UNIT/ML CARTRIDGE SQ SCH (22:00)
[2021-11-26] VITALS: BP 115/65
[2021-11-26] MEDS: HYDROCODONE/APAP 5/325MG TABLET PO PRN ×4 (01:27→20:53)
[2021-11-26 04:00] VITALS: BP 99/58
--- NOTE | 2021-11-26 04:00 | NUR ---
RN NOTES PATIENT REMAINED TO BE IN NO SIGNS OF ACUTE RESPIRATORY DISTRESS , SAFE ENVIRONMENT MAINTAINED FOR PT. AM PATIENT CARE ASSISTANCE RENDERED. WILL CONTINUE TO MONITOR AND REASSESS FOR ANY CHANGES THROUGHOUT THE SHIFT.
[2021-11-26] MEDS: ACETAMINOPHEN 325 MG TABLET PO PRN (05:27)
--- NOTE | 2021-11-26 06:18 | NUR ---
RN CLOSING NOTE: PATIENT REMAINS IN ROOM IN NO SIGNS OF RESPIRATORY DISTRESS, PATIENT STILL ON ROOM AIR ;TOLERATING WELL SATURATING @ >95% SP02. SAFETY MEASURES IMPLEMENTED, BED IN LOWEST POSITION, LOCKED, SIDE RAILS UP, CALL LIGHT WITHIN REACH. ALL NEEDS AND ORDERS ADDRESSED DURING THE SHIFT. IV ACCESS MAINTAINED INTACT, SECURED AND FLUSHING WELL. ALL DUE MEDS GIVEN ORDERED & SCHEDULED ; PATIENT TOLERATED WELL. PATIENT KEPT CLEAN AND COMFORTABLE WITHIN THE SHIFT. PATIENT ENDORSED TO INCOMING SHIFT RN WITH STABLE VITAL SIGN AND FOR CONTINUITY OF CARE.
[2021-11-26 08:00] VITALS: BP 115/69
[2021-11-26] MEDS: FERROUS SULFATE (325 MG) 325 MG/TAB TABLET PO SCH ×2 (08:39→17:03)
[2021-11-26] MEDS: MULTIVITAMINS,THERAGRAN 1 UDTAB TABLET PO SCH (08:39)
[2021-11-26] MEDS: PROSOURCE / PROSTAT (PYXIS) 30 ML UDC PO SCH (08:40)
[2021-11-26] MEDS: PANTOPRAZOLE 40 MG VIAL IV SCH ×2 (08:40→20:51)
[2021-11-26] MEDS: DOCUSATE SODIUM 100 MG CAPSULE PO SCH (08:40)
[2021-11-26] MEDS: FOLIC ACID 1 MG TABLET PO SCH (08:40)
[2021-11-26] MEDS: VENLAFAXINE XR 150 MG CAP.SR.24H PO SCH (08:42)
[2021-11-26] MEDS: ASCORBIC ACID 500 MG TABLET PO SCH (08:42)
[2021-11-26] MEDS: MORPHINE SULFATE SR 15 MG TABLET.SA PO SCH ×2 (08:42→20:53)
[2021-11-26] MEDS: SUCRALFATE 1 G TABLET PO SCH ×2 (08:43→17:02)
[2021-11-26] MEDS: BLOOD SUGAR DIAGNOSTIC 1 EACH STRIP IN SCH ×4 (08:46→21:04)
[2021-11-26] MEDS: MIDODRINE HCL (5MG) 5 MG TABLET PO SCH ×3 (08:47→17:00)
[2021-11-26] MEDS: INSULIN REGULAR, HUMAN 100 UNIT/ML 3 ML VIAL SQ PRN ×3 (08:51→21:07)
[2021-11-26] MEDS: APIXABAN 5 MG TABLET PO SCH ×2 (08:52→20:51)
[2021-11-26] MEDS: MUPIROCIN OINT 2% 22 GM TUBE NS SCH ×2 (08:57→20:51)
[2021-11-26 12:00] VITALS: BP 131/69
[2021-11-26] MEDS: MEROPENEM 500 MG in IV NS 0.9% 50 ML IV SCH ×2 (12:38→23:53)
[2021-11-26 15:12] LABS: BASOPHILS % (AUTO) 0.3 % (0.0-2.0); HEMATOCRIT 28 % (33-45); HEMOGLOBIN 9.3 g/dL (11.5-14.8); LYMPHOCYTES # (AUTO) 0.8 K/uL (0.8-4.8); LYMPHOCYTES % (AUTO) 24.6 % (20.0-44.0); MEAN CORPUSCULAR HGB CONC 33 g/dl (31.0-36.0); MEAN CORPUSCULAR VOLUME 79 fL (82-100); MONOCYTES # (AUTO) 0.3 K/uL (0.1-1.30); MONOCYTES % (AUTO) 10.5 % (2.0-12.0); NEUTROPHILS % (AUTO) 61.6 % (43.0-81.0); PLATELET COUNT (AUTO) 100 K/uL (150-450); RED BLOOD CELL COUNT(AUTO) 3.52 MIL/uL (4.0-5.2); WHITE BLOOD COUNT (AUTO) 3.3 K/uL (4.3-11.0)
[2021-11-26 15:23] LABS: CALCIUM, SERUM 8.5 mg/dL (8.5-10.1); POTASSIUM 5.7 mmol/L (3.5-5.1)
[2021-11-26 16:00] VITALS: BP 154/68
[2021-11-26 20:00] VITALS: BP 114/66
--- NOTE | 2021-11-26 20:00 | NUR ---
Received patient a/o x4.VSS.SR.Respiration even and unlabored.IV NS at TKO infusing via DEMETRIUS ML site intact.Colostomy active.FC to gravity.Patient move in bed independently. Safety measures implemented.Call light at bedside
[2021-11-26] MEDS: TEMAZEPAM 15 MG CAPSULE PO PRN (20:57)
[2021-11-26] MEDS ORDERED: INSULIN GLARGINE, 100 UNIT/ML CARTRIDGE SQ SCH (22:00)
[2021-11-27] VITALS: BP 121/78
[2021-11-27] MEDS: ZINC SULFATE 220 MG CAPSULE PO SCH ×2 (00:06→21:43)
[2021-11-27 04:00] VITALS: BP 115/64
--- NOTE | 2021-11-27 06:00 | NUR ---
Patient was medicated for leg pain .Verbalized comfort.Slept most of the night. VSS stable.Good urine output.Refused AM CARE wants to sleep more.
[2021-11-27 07:00] LABS: CALCIUM, SERUM 8.8 mg/dL (8.5-10.1); CREATININE 1.1 mg/dL (0.6-1.3)
[2021-11-27 07:06] LABS: BASOPHILS % (AUTO) 0.5 % (0.0-2.0); EOSINOPHILS % (AUTO) 4.5 % (0.0-6.0); HEMATOCRIT 28 % (33-45); HEMOGLOBIN 9.2 g/dL (11.5-14.8); LYMPHOCYTES # (AUTO) 0.8 K/uL (0.8-4.8); LYMPHOCYTES % (AUTO) 28.3 % (20.0-44.0); MEAN CORPUSCULAR HGB CONC 33 g/dl (31.0-36.0); MEAN CORPUSCULAR VOLUME 79 fL (82-100); MONOCYTES # (AUTO) 0.3 K/uL (0.1-1.30); MONOCYTES % (AUTO) 10.3 % (2.0-12.0); NEUTROPHILS # (AUTO) 1.6 K/uL (1.8-8.9); NEUTROPHILS % (AUTO) 56.4 % (43.0-81.0); PLATELET COUNT (AUTO) 96 K/uL (150-450); RED BLOOD CELL COUNT(AUTO) 3.55 MIL/uL (4.0-5.2); WHITE BLOOD COUNT (AUTO) 2.9 K/uL (4.3-11.0)
[2021-11-27] MEDS: BLOOD SUGAR DIAGNOSTIC 1 EACH STRIP IN SCH ×4 (07:30→21:50)
[2021-11-27 08:00] VITALS: BP 109/74
[2021-11-27] MEDS: SUCRALFATE 1 G TABLET PO SCH ×2 (08:20→16:29)
[2021-11-27] MEDS: HYDROCODONE/APAP 5/325MG TABLET PO PRN ×3 (08:27→18:09)
[2021-11-27] MEDS: ASCORBIC ACID 500 MG TABLET PO SCH (09:37)
[2021-11-27] MEDS: DOCUSATE SODIUM 100 MG CAPSULE PO SCH (09:37)
[2021-11-27] MEDS: FOLIC ACID 1 MG TABLET PO SCH (09:37)
[2021-11-27] MEDS: MORPHINE SULFATE SR 15 MG TABLET.SA PO SCH ×2 (09:37→21:45)
[2021-11-27] MEDS: FERROUS SULFATE (325 MG) 325 MG/TAB TABLET PO SCH ×2 (09:37→16:29)
[2021-11-27] MEDS: MIDODRINE HCL (5MG) 5 MG TABLET PO SCH ×3 (09:38→16:29)
[2021-11-27] MEDS: MULTIVITAMINS,THERAGRAN 1 UDTAB TABLET PO SCH (09:57)
[2021-11-27] MEDS: VENLAFAXINE XR 150 MG CAP.SR.24H PO SCH (09:57)
[2021-11-27] MEDS: PANTOPRAZOLE 40 MG VIAL IV SCH ×2 (09:57→21:43)
[2021-11-27] MEDS: APIXABAN 5 MG TABLET PO SCH ×2 (09:59→21:44)
--- NOTE | 2021-11-27 11:00 | NUR ---
RN NOTE ] PATIENT IS IN BED, ALERT AND ORIENTED X4.PATIENT IS ON ROOM AIR BREATHING EVENLY AND NON LABORED PATIENT IS ON TELE MONITOR.PATIENT HAS HUGHES CATHETER DRAINING TO GRAVITY. PATIENT HAS IV ACCESS ON DEMETRIUS MIDLINE AND LFA IV GAUGE. COLOSTOMY OF THE RLQ OF THE ABDOMEN ALL SAFETY MEASURES IN PLACE.CALL LIGHT WITHIN REACH. BED LOCKED IN LOWEST POSITION.SIDE RAILS UP X2. BEDSIDE TABLE WITHIN REACH. WILL CONTINUE TO ASSESS THROUGHOUT SHIFT.
[2021-11-27] MEDS: PROSOURCE / PROSTAT (PYXIS) 30 ML UDC PO SCH (11:20)
[2021-11-27 12:00] VITALS: BP 110/70
[2021-11-27] MEDS: MEROPENEM 500 MG in IV NS 0.9% 50 ML IV SCH (13:19)
[2021-11-27] MEDS: INSULIN REGULAR, HUMAN 100 UNIT/ML 3 ML VIAL SQ PRN ×3 (13:34→21:58)
[2021-11-27] MEDS: MUPIROCIN OINT 2% 22 GM TUBE NS SCH ×2 (13:38→21:56)
[2021-11-27 16:00] VITALS: BP 129/65
--- NOTE | 2021-11-27 18:37 | NUR ---
RN CLOSING NOTE PATIENT IS IN BED , REMAINS ON ROOM AIR , BREATHING EVENLY , NON LABORED , NO SIGHS OF DISTRESS TOLERATING WELL ,SATURATING @ >95% SP02. PATIENT HAS COLOSTOMY OF THE RLQ OF THE ABDOMEN , BAG WAS CHANGED TWICE TODAY , HAS HUGHES CATH IN PLACE, DRAINING YELLOW CLEAR URINE , SAFETY MEASURES IMPLEMENTED, BED IN LOWEST POSITION, LOCKED, SIDE RAILS UP, CALL LIGHT WITHIN REACH. ALL NEEDS AND ORDERS ADDRESSED DURING THE SHIFT. IV ACCESS MAINTAINED INTACT, SECURED AND FLUSHING WELL. ALL DUE MEDS GIVEN ORDERED & SCHEDULED ; PATIENT TOLERATED WELL. PATIENT KEPT CLEAN AND COMFORTABLE WITHIN THE SHIFT. PATIENT ENDORSED TO INCOMING SHIFT RN
--- NOTE | 2021-11-27 19:20 | NUR ---
RN OPENING NOTE RECEIVED PATIENT A/OX4, ABLE TO MAKE NEEDS KNOWN, PATIENT IN NO DISCOMFORT AT THIS TIME. PATIENT ON RA BREATHING EQUALLY BILATERAL, NO S/S OF DISTRESS, PATIENT IS SR, ON TELE MONITOR HR82, HUGHES CATHETER NOTED [PATENT DRAINING YELLOW URINE, OSTOMY BAG NOTED TO BE COMPROMISED, LEAKING, WILL CHANGE OSTOMY BAG ACCORDING TO HOSPITAL POLICY. SAFETY MEASURES IMPLEMENTED PER HOSPITAL POLICY, WILL CONTINUE TO MONITOR
[2021-11-27 20:00] VITALS: BP 102/62
[2021-11-27] MEDS: TEMAZEPAM 15 MG CAPSULE PO PRN (21:45)
[2021-11-27] MEDS: INSULIN GLARGINE, 100 UNIT/ML CARTRIDGE SQ SCH (21:54)
[2021-11-28] VITALS: BP 112/84
[2021-11-28] MEDS: MEROPENEM 500 MG in IV NS 0.9% 50 ML IV SCH ×2 (00:29→12:08)
[2021-11-28] MEDS: HYDROCODONE/APAP 5/325MG TABLET PO PRN ×3 (02:31→16:49)
[2021-11-28 04:00] VITALS: BP 129/69
--- NOTE | 2021-11-28 06:53 | NUR ---
RN CLOSING NOTES WILL ENDORSE CARE OF PATIENT TO AM NURSE. IS A/O X4, ABLE TO MAKE NEEDS KNOWN. ON ROOM AIR, NO RESPIRATORY COMPLICATIONS NOTED. NO SIGNIFICANT FINDINGS UPON ALL NURSING ASSESSMENTS. ALL DUE MEDS GIVEN AND NEEDS ATTENDED TO. SAFETY MEASURES KEPT IN PLACE. WILL ENDORSE TO AM NURSE FOR CONTINUITY OF CARE.
[2021-11-28 07:18] LABS: CALCIUM, SERUM 8.5 mg/dL (8.5-10.1); CREATININE 0.8 mg/dL (0.6-1.3); POTASSIUM 5.2 mmol/L (3.5-5.1)
--- NOTE | 2021-11-28 07:44 | NUR ---
RN OPENING NOTE RECEIVED PATIENT ASLEEP. PATIENT IN NO DISCOMFORT AT THIS TIME. PATIENT ON RA BREATHING EQUALLY BILATERAL, NO S/S OF DISTRESS, PATIENT IS SR, ON TELE MONITOR HR82, HUGHES CATHETER NOTED [PATENT DRAINING YELLOW URINE, WITH COLOSTOMY BAG WILL CHANGE OSTOMY BAG ACCORDING TO HOSPITAL POLICY. SAFETY MEASURES IN PLACE, CALL LIGHT WITHIN REACH. WILL CONTINUE TO MONITOR AND ATTEND TO PT NEEDS.
[2021-11-28 08:00] VITALS: BP 120/53
[2021-11-28] MEDS: BLOOD SUGAR DIAGNOSTIC 1 EACH STRIP IN SCH ×4 (08:01→21:14)
[2021-11-28] MEDS: SUCRALFATE 1 G TABLET PO SCH ×2 (08:01→16:49)
[2021-11-28 08:13] LABS: BASOPHILS % (AUTO) 0.9 % (0.0-2.0); EOSINOPHILS % (AUTO) 5.8 % (0.0-6.0); HEMATOCRIT 29 % (33-45); HEMOGLOBIN 9.3 g/dL (11.5-14.8); LYMPHOCYTES # (AUTO) 1.1 K/uL (0.8-4.8); LYMPHOCYTES % (AUTO) 33.9 % (20.0-44.0); MEAN CORPUSCULAR HGB CONC 32 g/dl (31.0-36.0); MEAN CORPUSCULAR VOLUME 81 fL (82-100); MONOCYTES # (AUTO) 0.3 K/uL (0.1-1.30); MONOCYTES % (AUTO) 10.7 % (2.0-12.0); NEUTROPHILS # (AUTO) 1.6 K/uL (1.8-8.9); NEUTROPHILS % (AUTO) 48.7 % (43.0-81.0); PLATELET COUNT (AUTO) 106 K/uL (150-450); RED BLOOD CELL COUNT(AUTO) 3.62 MIL/uL (4.0-5.2); WHITE BLOOD COUNT (AUTO) 3.2 K/uL (4.3-11.0)
[2021-11-28] MEDS: MULTIVITAMINS,THERAGRAN 1 UDTAB TABLET PO SCH (09:33)
[2021-11-28] MEDS: ASCORBIC ACID 500 MG TABLET PO SCH (09:33)
[2021-11-28] MEDS: VENLAFAXINE XR 150 MG CAP.SR.24H PO SCH (09:33)
[2021-11-28] MEDS: FOLIC ACID 1 MG TABLET PO SCH (09:33)
[2021-11-28] MEDS: FERROUS SULFATE (325 MG) 325 MG/TAB TABLET PO SCH ×2 (09:33→16:49)
[2021-11-28] MEDS: MORPHINE SULFATE SR 15 MG TABLET.SA PO SCH ×2 (09:34→21:01)
[2021-11-28] MEDS: PANTOPRAZOLE 40 MG VIAL IV SCH (09:34)
[2021-11-28] MEDS: DOCUSATE SODIUM 100 MG CAPSULE PO SCH (09:35)
[2021-11-28] MEDS: MIDODRINE HCL (5MG) 5 MG TABLET PO SCH ×3 (09:35→16:49)
[2021-11-28] MEDS: APIXABAN 5 MG TABLET PO SCH ×2 (09:36→21:02)
[2021-11-28] MEDS: MUPIROCIN OINT 2% 22 GM TUBE NS SCH ×2 (09:38→21:25)
[2021-11-28] MEDS: PROSOURCE / PROSTAT (PYXIS) 30 ML UDC PO SCH (09:38)
[2021-11-28] MEDS: INSULIN REGULAR, HUMAN 100 UNIT/ML 3 ML VIAL SQ PRN ×3 (11:26→21:20)
[2021-11-28 12:00] VITALS: BP 133/74
[2021-11-28] MEDS ORDERED: POLYETHYLENE GLYCOL 3350 17 GM POWD.PACK PO ONE (13:30)
[2021-11-28] MEDS ORDERED: BISACODYL SUPP (10 MG) 10 MG/SUPP.RECT SUPP.RECT RC ONE (13:30)
[2021-11-28] MEDS: ACETAMINOPHEN 325 MG TABLET PO PRN (14:02)
[2021-11-28 16:00] VITALS: BP 146/60
--- NOTE | 2021-11-28 18:37 | NUR ---
RN CLOSING NOTES PT IN BED AWAKE, IS A/O X4, ON ROOM AIR. NO RESPIRATORY DISTRESS. O2 SAT AT 96% TO 97%. ABLE TO MAKE NEEDS KNOWN.COLOSTOMY BAG CHANGED. DEMETRIUS MIDLINE PATENT AND FLUSHING WELL. ALL DUE MEDS GIVEN AND NEEDS ATTENDED TO. SAFETY MEASURES KEPT IN PLACE. WILL ENDORSE TO NEXT NURSE ON DUTY FOR CONTINUITY OF CARE.
--- NOTE | 2021-11-28 19:36 | NUR ---
INTERNATIONAL LOGISTICS COORDINATOR OPENING NOTES RECEIVED PATIENT RESTING IN BED COMFORTABLY; A/OX4, ABLE TO MAKE NEEDS KNOWN; TOLERATING ROOM AIR WELL, NO SOB NOTED, BREATHING EVEN AND UNLABORED; TELE MONITOR READS SR WITH ELEVATED T WAVES; DEMETRIUS MIDLINE NOTED, FLUSHING WELL; NO S/S OF REDNESS OR INFILTRATION NOTED; HUGHES CATH PRESENT WITH YELLOW OUTPUT NOTED; SAFETY PRECAUTIONS IMPLEMENTED; BED LOCKED IN LOW POSITION; SIDE RAILSX2; CALL LIGHT WITHIN REACH; WILL CONT PLAN OF CARE
[2021-11-28 20:00] VITALS: BP 166/71
[2021-11-28] MEDS: ZINC SULFATE 220 MG CAPSULE PO SCH (21:01)
[2021-11-28] MEDS: PANTOPRAZOLE 40 MG TABLET.DR PO SCH (21:01)
[2021-11-28] MEDS: INSULIN GLARGINE, 100 UNIT/ML CARTRIDGE SQ SCH (21:17)
[2021-11-28] MEDS: TEMAZEPAM 15 MG CAPSULE PO PRN (22:24)
[2021-11-29] VITALS: BP 110/62
[2021-11-29 04:00] VITALS: BP 118/69
--- NOTE | 2021-11-29 04:20 | NUR ---
INSTRUCTOR GROUND SERVICES NOTE COLOSTOMY BAG REPLACED; BM OUTPUT 800CC; STOMA PINK, CLEAN; NO S/S OF INFECTION NOTED;
[2021-11-29] MEDS: HYDROCODONE/APAP 5/325MG TABLET PO PRN ×3 (04:25→16:30)
--- NOTE | 2021-11-29 06:49 | NUR ---
ACUTE CARE PHYSICAL THERAPIST CLOSING NOTES PATIENT RESTING IN BED COMFORTABLY; A/OX4, ABLE TO MAKE NEEDS KNOWN; REFUSED FOR LAB DRAW RIGHT NOW, REPORTED SHE WOULD LIKE TO HAVE BLOOD WORK DONE LATER IN THE DAY; TOLERATING ROOM AIR WELL, NO SOB NOTED, BREATHING EVEN AND UNLABORED; TELE MONITOR READS SR WITH ELEVATED T WAVES; DEMETRIUS MIDLINE NOTED, FLUSHING WELL; NO S/S OF REDNESS OR INFILTRATION NOTED; HUGHES CATH PRESENT WITH YELLOW OUTPUT NOTED; SAFETY PRECAUTIONS IMPLEMENTED; BED LOCKED IN LOW POSITION; SIDE RAILSX2; ALL NEEDS RENDERED; CALL LIGHT WITHIN REACH; WILL ENDORSE CHANA TO ONCOMING SHIFT
--- NOTE | 2021-11-29 07:39 | NUR ---
ON AIR ANNOUNCER OPENING NOTES RECEIVED PATIENT SLEEPING IN BED COMFORTABLY; TOLERATING ROOM AIR WELL, NO SOB NOTED, BREATHING EVEN AND UNLABORED; TELE MONITOR READS SR WITH ELEVATED T WAVES; DEMETRIUS MIDLINE PATENT. NO S/S OF REDNESS OR INFILTRATION NOTED; HUGHES CATH PRESENT WITH YELLOW OUTPUT NOTED; SAFETY PRECAUTIONS IMPLEMENTED; BED LOCKED IN LOW POSITION; SIDE RAILSX2; CALL LIGHT WITHIN REACH; WILL CONT PLAN OF CARE.
[2021-11-29] MEDS: SUCRALFATE 1 G TABLET PO SCH ×2 (07:55→16:30)
[2021-11-29] MEDS: BLOOD SUGAR DIAGNOSTIC 1 EACH STRIP IN SCH ×4 (07:55→22:02)
[2021-11-29 08:00] VITALS: BP 110/60
[2021-11-29] MEDS: INSULIN REGULAR, HUMAN 100 UNIT/ML 3 ML VIAL SQ PRN ×4 (08:04→22:10)
[2021-11-29] MEDS ORDERED: POLYETHYLENE GLYCOL 3350 17 GM POWD.PACK PO PRN (09:00)
[2021-11-29] MEDS: DOCUSATE SODIUM 100 MG CAPSULE PO SCH (09:45)
[2021-11-29] MEDS: MUPIROCIN OINT 2% 22 GM TUBE NS SCH ×2 (09:45→21:38)
[2021-11-29] MEDS: ASCORBIC ACID 500 MG TABLET PO SCH (09:45)
[2021-11-29] MEDS: MORPHINE SULFATE SR 15 MG TABLET.SA PO SCH ×2 (09:46→21:34)
[2021-11-29] MEDS: PANTOPRAZOLE 40 MG TABLET.DR PO SCH ×2 (09:46→21:34)
[2021-11-29] MEDS: VENLAFAXINE XR 150 MG CAP.SR.24H PO SCH (09:46)
[2021-11-29] MEDS: FERROUS SULFATE (325 MG) 325 MG/TAB TABLET PO SCH ×2 (09:46→16:31)
[2021-11-29] MEDS: FOLIC ACID 1 MG TABLET PO SCH (09:46)
[2021-11-29] MEDS: MULTIVITAMINS,THERAGRAN 1 UDTAB TABLET PO SCH (09:46)
[2021-11-29] MEDS: MIDODRINE HCL (5MG) 5 MG TABLET PO SCH ×3 (09:47→16:31)
[2021-11-29] MEDS: PROSOURCE / PROSTAT (PYXIS) 30 ML UDC PO SCH (09:48)
[2021-11-29] MEDS: APIXABAN 5 MG TABLET PO SCH ×2 (09:49→21:37)
[2021-11-29 10:23] LABS: CALCIUM, SERUM 9.2 mg/dL (8.5-10.1); CREATININE 0.8 mg/dL (0.6-1.3); POTASSIUM 4.9 mmol/L (3.5-5.1)
[2021-11-29 12:00] VITALS: BP 131/69
[2021-11-29] MEDS: MEROPENEM 500 MG in IV NS 0.9% 50 ML IV SCH ×3 (12:15)
[2021-11-29 16:00] VITALS: BP 111/57
--- NOTE | 2021-11-29 18:45 | NUR ---
PAYROLL ACCOUNTANT CLOSING NOTES PATIENT RESTING IN BED COMFORTABLY; A/OX4, ABLE TO MAKE NEEDS KNOWN; TOLERATING ROOM AIR WELL, NO SOB, BREATHING EVEN AND UNLABORED; TELE MONITOR READS SR WITH ELEVATED T WAVES; DEMETRIUS MIDLINE NOTED, FLUSHING WELL; NO S/S OF REDNESS OR INFILTRATION NOTED; HUGHES CATH PRESENT WITH YELLOW OUTPUT NOTED; COLOSTOMY BAG CHANGED. SAFETY PRECAUTIONS IMPLEMENTED; BED LOCKED IN LOW POSITION; SIDE RAILSX2; ALL NEEDS RENDERED; CALL LIGHT WITHIN REACH; WILL ENDORSE TO SOLAR ENERGY INSTALLATION MANAGER NURSE FOR CONTINUITY OF CARE.
[2021-11-29 20:00] VITALS: BP 128/62
[2021-11-29] MEDS: ZINC SULFATE 220 MG CAPSULE PO SCH (21:37)
[2021-11-29] MEDS: INSULIN GLARGINE, 100 UNIT/ML CARTRIDGE SQ SCH (22:09)
[2021-11-29] MEDS: TEMAZEPAM 15 MG CAPSULE PO PRN (22:10)
[2021-11-30] VITALS: BP 120/68
[2021-11-30] MEDS: MEROPENEM 500 MG in IV NS 0.9% 50 ML IV SCH ×2 (00:51→12:02)
[2021-11-30] MEDS: HYDROCODONE/APAP 5/325MG TABLET PO PRN ×4 (00:52→17:26)
[2021-11-30 04:00] VITALS: BP 95/55
--- NOTE | 2021-11-30 07:10 | NUR ---
ASSOCIATE JUVENILE COURT JUDGE CLOSING NOTE PATIENT SLEEPING IN BED, ALERT/ORIENTED X 3, PT ABLE TO MAKE NEEDS KNOWN. PATIENT STABLE ON RA, NO S/S OF DISTRESS OR SOB NOTED, BREATHING EVEN AND UNLABORED. PATIENT ON EXTERNAL TIMBER ROBBER READING SINUS RHYTHM WITH ELEVATED T WAVE, HR: 85. DEMETRIUS MIDLINE INTACT AND FLUSHING WELL, SALINE LOCKED. COLOSTOMY BAG IN PLACE, HOWEVER PATIENT REFUSED CHANGE/EMPTYING THIS AM AND CHANGE OF SHEETS, STATED SHE WANTED IT DONE LATER. NO SIGNIFICANT CHANGES THROUGHOUT SHIFT, MEDICATIONS GIVEN ORDERED, PT NEEDS MET THROUGHOUT SHIFT. SAFETY MEASURES IN PLACE: CALL LIGHT WITHIN REACH, SIDE RAILS UP X 2, BED LOCKED IN LOWEST POSITION, BED ALARM ON. WILL ENDORSE TO DAY SHIFT NURSE FOR CONTINUITY OF CARE
--- NOTE | 2021-11-30 07:32 | NUR ---
PHARMACEUTICAL PROCESS ENGINEER OPENING NOTES RECEIVED PATIENT SLEEPING IN BED COMFORTABLY; TOLERATING ROOM AIR WELL, NO SOB NOTED, BREATHING EVEN AND UNLABORED; TELE MONITOR READS SR WITH ELEVATED T WAVES; DEMETRIUS MIDLINE G#18, PATENT. NO S/S OF REDNESS OR INFILTRATION NOTED; HUGHES CATH PRESENT WITH YELLOW OUTPUT NOTED; SAFETY PRECAUTIONS IN PLACE, BED LOCKED IN LOW POSITION; SIDE RAILSX2; CALL LIGHT WITHIN REACH; WILL CONT PLAN OF CARE.
[2021-11-30] MEDS: BLOOD SUGAR DIAGNOSTIC 1 EACH STRIP IN SCH ×3 (07:46→17:27)
[2021-11-30] MEDS: SUCRALFATE 1 G TABLET PO SCH ×2 (07:46→17:09)
[2021-11-30 08:00] VITALS: BP 121/56
[2021-11-30] MEDS: PANTOPRAZOLE 40 MG TABLET.DR PO SCH (08:09)
[2021-11-30] MEDS: FOLIC ACID 1 MG TABLET PO SCH (08:09)
[2021-11-30] MEDS: DOCUSATE SODIUM 100 MG CAPSULE PO SCH (08:10)
[2021-11-30] MEDS: ASCORBIC ACID 500 MG TABLET PO SCH (08:10)
[2021-11-30] MEDS: MULTIVITAMINS,THERAGRAN 1 UDTAB TABLET PO SCH (08:10)
[2021-11-30] MEDS: FERROUS SULFATE (325 MG) 325 MG/TAB TABLET PO SCH ×2 (08:10→17:27)
[2021-11-30] MEDS: MORPHINE SULFATE SR 15 MG TABLET.SA PO SCH (08:10)
[2021-11-30] MEDS: VENLAFAXINE XR 150 MG CAP.SR.24H PO SCH (08:10)
[2021-11-30] MEDS: APIXABAN 5 MG TABLET PO SCH (08:11)
[2021-11-30] MEDS: MUPIROCIN OINT 2% 22 GM TUBE NS SCH (08:12)
[2021-11-30] MEDS: PROSOURCE / PROSTAT (PYXIS) 30 ML UDC PO SCH (08:14)
[2021-11-30] MEDS: MIDODRINE HCL (5MG) 5 MG TABLET PO SCH ×3 (08:14→17:09)
[2021-11-30 12:00] VITALS: BP 121/56
[2021-11-30] MEDS: INSULIN REGULAR, HUMAN 100 UNIT/ML 3 ML VIAL SQ PRN (12:01)
[2021-11-30 17:09] VITALS: BP 121/56
--- NOTE | 2021-11-30 17:46 | NUR ---
REPORT GIVEN TO GORDO EPPS SUUPERVISOR OF [facility]. REVIEWED DISCHARGE INSTRUCTIONS WITH PT . PT VERBALIZED UNDERSTANDING. PT DISCHARGED VIA GURNEY WITH PRESCRIPTION, INSTRUCTION AND BELONGINGS. IV AND TELEMETRY PREVIOUSLY DISCONNECTED. PT LEFT HOSPITAL TO SNF. VS: STABLE.
== END 2021-11-30 17:47 | DRG 871 ==
LOC: ER 15:50 → TRANSITION 22:40 → MEDSG1 11-22 02:19 → TELE-TD 11-22 03:17 → TELE1 11-26 08:48
PROVIDERS: ADMIT Nurse Practitioner Acute Care; ATTEND Nurse Practitioner Acute Care
PROC: 5A1D70Z Performance of Urinary Filtration, Intermittent, Less than 6 Hours Per Day (ICD-10-PCS; principal; 2021-11-22)
PROC: 02HV33Z Insertion of Infusion Device into Superior Vena Cava, Percutaneous Approach (ICD-10-PCS; 2021-11-22)
PROC: B548ZZA Ultrasonography of Superior Vena Cava, Guidance (ICD-10-PCS; 2021-11-22)
PROC: 05HB33Z Insertion of Infusion Device into Right Basilic Vein, Percutaneous Approach (ICD-10-PCS; 2021-11-22)
PROC: 5A1D70Z Performance of Urinary Filtration, Intermittent, Less than 6 Hours Per Day (ICD-10-PCS; 2021-11-23)
PROC: 5A1D70Z Performance of Urinary Filtration, Intermittent, Less than 6 Hours Per Day (ICD-10-PCS; 2021-11-24)
DX: A41.9 Sepsis, unspecified organism (principal); E43 Unspecified severe protein-calorie malnutrition; N17.0 Acute kidney failure with tubular necrosis; N39.0 Urinary tract infection, site not specified; E87.1 Hypo-osmolality and hyponatremia; E87.2 Acidosis; K76.6 Portal hypertension; D61.818 Other pancytopenia; K52.9 Noninfective gastroenteritis and colitis, unspecified; E86.0 Dehydration; E87.5 Hyperkalemia; B96.20 Unspecified Escherichia coli [E. coli] as the cause of diseases classified elsewhere; D64.9 Anemia, unspecified; E83.39 Other disorders of phosphorus metabolism; E86.1 Hypovolemia; E88.09 Other disorders of plasma-protein metabolism, not elsewhere classified; F41.9 Anxiety disorder, unspecified; G40.909 Epilepsy, unspecified, not intractable, without status epilepticus; G89.4 Chronic pain syndrome; I10 Essential (primary) hypertension; K76.0 Fatty (change of) liver, not elsewhere classified; K86.89 Other specified diseases of pancreas; Z79.01 Long term (current) use of anticoagulants; Z20.822 Contact with and (suspected) exposure to COVID-19; K21.9 Gastro-esophageal reflux disease without esophagitis; K59.00 Constipation, unspecified; Z79.4 Long term (current) use of insulin; R62.7 Adult failure to thrive; Z86.718 Personal history of other venous thrombosis and embolism; Z93.3 Colostomy status; Z79.899 Other long term (current) drug therapy; Z22.322 Carrier or suspected carrier of Methicillin resistant Staphylococcus aureus; E11.65 Type 2 diabetes mellitus with hyperglycemia
CPT/HCPCS: 36410; 36415; 71045-TC; 76770-TC; 80048-TC; 80053-TC; 80076-TC; 81001; 82272-TC; 82962-TC; 83690-TC; 83735-TC; 84100-TC; 85025-TC; 85730-TC; 86706; 86803; 86850-TC; 87081-TC; 87086-TC; 87186-TC; 87340; 90935-TC; 94799-TC; 97110-TC; 97116-TC; 97530-TC; A4216; A6403; C1750; C9113; C9803; G0378; J0696; J1815; J2185; J2270; J2405; J3490; J7030; J7040; J7042; J7050; J7060; P9047

== ENCOUNTER 2021-12-12 13:40 | Inpatient (IN) | payer MEDICARE, OTHER ==
[~2021-12-12] VITALS: Ht 165.1 cm; Wt 47.6 kg
[~2021-12-12 13:40] MED LIST changes: +ACET-868 PO; +ASCO-340 PO; +BISA10SU11 RC; -CRAN400C PO; +CRAN425C6 PO; +FERR325T23 PO; -FERR325T28 PO; +FOLI0.4T6 PO; -Folic Acid PO; +GABA-532 PO; -GABA300C PO; +MAGN400O6 PO; -METO-295 PO; +ZINC50TA69 PO; -ZOLP5TAB2 PO
--- NOTE | 2021-12-12 13:49 | NUR ---
JOHS OCHOA FROM [facility] C/O ABDOMINAL PAIN X 2 DAYS, WORST TODAY. WAS GIVEN NORCO AND MORPHINE FOR PAIN MANAGEMENT. ATTACHED TO MONITOR, VITALS ARE WITHIN NORMAL LIMITS. AWAITING MD ORDERS.
[2021-12-12] MEDS ORDERED: TEMA15CA PO (14:00)
[2021-12-12] MEDS ORDERED: VENL75CA62 PO (14:00)
[2021-12-12] MEDS ORDERED: ONDANSETRON HCL/PF 4 MG/2 ML VIAL IVP ONE (14:30)
[2021-12-12] MEDS ORDERED: MAG HYDROX/AL HYDROX/SIMETH 30 ML UDC PO ONE (14:30)
[2021-12-12] MEDS ORDERED: FAMOTIDINE/PF INJ 20 MG/2 ML VIAL IV ONE ×2 (14:30→14:44)
[2021-12-12] MEDS ORDERED: KETOROLAC TROMETHAMINE INJ 30 MG/ML VIAL IV ONE (14:30)
[2021-12-12] MEDS ORDERED: KETOROLAC TROMETHAMINE 15 MG/ML VIAL ONE (14:43)
[2021-12-12] MEDS ORDERED: MAG HYDROX/AL HYDROX/SIMETH 30 ML UDC ONE (14:44)
[2021-12-12] MEDS ORDERED: ONDANSETRON HCL/PF 4 MG/2 ML VIAL ONE (14:44)
--- NOTE | 2021-12-12 14:44 | NUR ---
PT TAKEN TO CT [facility]IA [facility]
--- NOTE | 2021-12-12 14:51 | NUR ---
PT RETURNED FROM [facility] VIA [facility]
--- NOTE | 2021-12-12 15:38 | NUR ---
COLOSTOMY BACK WAS LEAKING, NEW COLOSTOMY PLACED, PT CHANGED INTO A NEW GOWN.
--- NOTE | 2021-12-12 15:44 | NUR ---
COVID TEST COLLECTED AND SENT
[2021-12-12 15:50] LABS: BILIRUBIN,URINE NEGATIVE (NEGATIVE); COLOR,URINE YELLOW (YELLOW); LEUKOCYTE ESTERASE ,URINE NEGATIVE (NEGATIVE); NITRITE, URINE NEGATIVE (NEGATIVE); PH,URINE 5.5 (5.0-8.0); PROTEIN,URINE TRACE mg/dl (NEGATIVE); UGLUCOSE 500 MG/DL mg/dL (NEGATIVE); UROBILINOGEN,URINE 0.2 EU/dL (0.2)
[2021-12-12 16:00] LABS: BACTERIA,URINE 1+ /HPF (None Seen); FINE GRANULAR CASTS,URINE Few /LPF (None Seen); HYALINE CASTS, URINE Few /LPF (None Seen); MUCUS,URINE Few /LPF (None Seen); RBC,URINE 0-2 /HPF (0-2)
[2021-12-12 17:39] LABS: BASOPHILS % (AUTO) 0.4 % (0.0-2.0); EOSINOPHILS % (AUTO) 2.3 % (0.0-6.0); HEMATOCRIT 35 % (33-45); HEMOGLOBIN 11.3 g/dL (11.5-14.8); LYMPHOCYTES # (AUTO) 1.4 K/uL (0.8-4.8); LYMPHOCYTES % (AUTO) 37.7 % (20.0-44.0); MEAN CORPUSCULAR HGB CONC 32 g/dl (31.0-36.0); MEAN CORPUSCULAR VOLUME 82 fL (82-100); MONOCYTES # (AUTO) 0.2 K/uL (0.1-1.30); MONOCYTES % (AUTO) 6.7 % (2.0-12.0); NEUTROPHILS # (AUTO) 1.9 K/uL (1.8-8.9); NEUTROPHILS % (AUTO) 52.9 % (43.0-81.0); PLATELET COUNT (AUTO) 198 K/uL (150-450); WHITE BLOOD COUNT (AUTO) 3.7 K/uL (4.3-11.0)
[2021-12-12 17:58] LABS: ALBUMIN 4.1 g/dL (3.4-5.0); CALCIUM, SERUM 9.5 mg/dL (8.5-10.1); CREATININE 1.2 mg/dL (0.6-1.3); POTASSIUM 6.1 mmol/L (3.5-5.1); TOTAL PROTEIN, SERUM 8.2 g/dL (6.4-8.2)
[2021-12-12] MEDS ORDERED: IV NS 0.9% 1,000 ML IV ONE (18:30)
[2021-12-12] MEDS ORDERED: HYDROCODONE/APAP 10/325MG TABLET PO ONE (20:00)
[2021-12-12] MEDS ORDERED: HYDROCODONE/APAP 10/325MG TABLET ONE (20:02)
[2021-12-12] MEDS ORDERED: FUROSEMIDE 40 MG/4 ML VIAL IV ONE (20:30)
[2021-12-12] MEDS ORDERED: DEXTROSE 50%-WATER 50 ML DISP.SYRIN IV ONE (20:30)
[2021-12-12] MEDS ORDERED: ALBUTEROL FS 2.5 MG/3 ML VIAL.NEB NEB ONE (20:30)
[2021-12-12] MEDS ORDERED: INSULIN REGULAR, HUMAN 100 UNIT/ML 10 ML VIAL IV ONE (20:30)
[2021-12-12] MEDS ORDERED: FUROSEMIDE 20 MG/2 ML VIAL ONE (20:41)
--- NOTE | 2021-12-12 20:42 | NUR ---
BG 155
--- NOTE | 2021-12-12 20:49 | NUR ---
MRSA SWAB COLLECTED AND SENT TO LAB. PATIENT'S BELONGINGS LIST DONE.
--- NOTE | 2021-12-12 20:59 | NUR ---
rt paged for breathing tx
[2021-12-12] MEDS ORDERED: IPRATROPIUM NEB FS 0.5 MG/2.5 ML AMPUL.NEB ONE (21:21)
--- NOTE | 2021-12-12 22:36 | NUR ---
REPORT GIVEN TO ROSALINA
--- NOTE | 2021-12-12 22:53 | NUR ---
PT TRANSPORTED TO ROOM 320 ON CARDIAC PER ACLS IN STABLE CONDITION
[2021-12-12 23:00] VITALS: BP 118/45
--- NOTE | 2021-12-12 23:00 | NUR ---
FEATHER MIXERJACQUARD FIXER NOTES RECEIVED NEW ADMIT THIS 66 YO FEMALE FROM ER,VIA [facility],ALERT,ORIENTED X4,PALE LOOKING,ABLE TO COMMUNICATE WELL,WITH SALINE LOCK RIGHT AC INTACT AND PATENT,AMBULATE WITH STEADY GAIT,ABDOMINAL PAIN TOLERATED AT THE MOMENT.WITH RIGHT ABDOMEN ILEOSTOMY,CALL LIGHT IN REACH,NEEDS ANTICIPATED.
--- NOTE | 2021-12-12 23:30 | NUR ---
SHEET METAL OPERATOR NOTES HOSPITALIST KYLE AT BEDSIDE TAKING TO PATIENT.
[2021-12-12] MEDS: IV NS 0.9% 1,000 ML IV PRN (23:55)
--- NOTE | 2021-12-12 23:55 | NUR ---
TECHNICAL SERVICES ASSISTANT NOTES C/O INSOMNIA,AMBIEN 5MG PO GIVEN ORDERED.
[2021-12-13] VITALS: BP 118/45
[2021-12-13] MEDS ORDERED: BISACODYL SUPP (10 MG) 10 MG/SUPP.RECT SUPP.RECT RC PRN
[2021-12-13] MEDS ORDERED: ZOLPIDEM TARTRATE 5 MG TABLET PO PRN
[2021-12-13] MEDS ORDERED: SODIUM POLYSTYRENE SULFONATE 15 G/60 ML BOTTLE PO ONE
[2021-12-13] MEDS ORDERED: Z GUARD REMEDY 4 OZ OINT TP PRN
[2021-12-13] MEDS ORDERED: DEXTROSE 50%-WATER 50 ML DISP.SYRIN IV PRN
[2021-12-13] MEDS ORDERED: SODIUM POLYSTYRENE SULFONATE 15 G/60 ML BOTTLE ONE (00:34)
[2021-12-13] MEDS ORDERED: INSULIN GLARGINE, 100 UNIT/ML CARTRIDGE SQ ONE (00:35)
--- NOTE | 2021-12-13 00:38 | NUR ---
ISOTOPE HYDROLOGIST NOTES POTASSIUM LEVEL OF 6.1,KAYEXALATE 30GM PO GIVEN ORDERED.
[2021-12-13] MEDS: INSULIN GLARGINE, 100 UNIT/ML CARTRIDGE SQ SCH ×2 (00:41→21:28)
--- NOTE | 2021-12-13 00:41 | NUR ---
TRACK REPAIR LABORER NOTES ACCU-CHECK BLOOD SUGAR CHECK 165,LANTUS 15 UNITS GIVEN SQ ON LEFT DELTOID ORDERED.
[2021-12-13 04:00] VITALS: BP 120/50
--- NOTE | 2021-12-13 06:37 | NUR ---
PEDIATRIC CARE COORDINATOR NOTES SLEPT WELL WITH DIANNE,ILEOSTOMY EMPTIED ONCE,REFUSED BLOOD DRAW EARLY.ECONOMICS DEPARTMENT CHAIR WILL BE BACK TO DRAW BLOOD,OTHERWISE STABLE.
--- NOTE | 2021-12-13 07:30 | NUR ---
BREWER HELPERDECORATING CONSULTANT NOTES RECEIVED PATIENT ,ALERT,ORIENTED X4 ,ABLE TO COMMUNICATE WELL,WITH SALINE LOCK RIGHT AC INTACT AND NO C/O OF PAIN AND DISCOMFORT AT THIS TIME , ROOM AIR AND NO SOB OR DISTRESS NOTED . ON PROGRESS CLERK WITH SR 87 , WITH RIGHT ABDOMEN ILEOSTOMY,CALL LIGHT IN REACH, BED IN LOWEST POSITION , WILL CONTINUE TO MONITOR .
[2021-12-13 08:00] VITALS: BP 113/64
[2021-12-13] MEDS: MORPHINE SULFATE INJ 2 MG/ML DISP.SYRIN IV PRN ×2 (08:53→20:36)
[2021-12-13] MEDS: BLOOD SUGAR DIAGNOSTIC 1 EACH STRIP IN SCH ×4 (08:59→21:20)
[2021-12-13] MEDS: GABAPENTIN 100 MG CAPSULE PO SCH ×3 (09:00→17:00)
[2021-12-13] MEDS: PANTOPRAZOLE 40 MG TABLET.DR PO SCH (09:06)
[2021-12-13] MEDS: MULTIVIT W/MINERALS 1 TAB TABLET PO SCH (09:11)
[2021-12-13] MEDS: FOLIC ACID 1 MG TABLET PO SCH (09:11)
[2021-12-13] MEDS: DOCUSATE SODIUM 100 MG CAPSULE PO SCH (09:11)
[2021-12-13] MEDS: VENLAFAXINE XR 150 MG CAP.SR.24H PO SCH (09:12)
[2021-12-13] MEDS: SUCRALFATE 1 G TABLET PO SCH ×2 (09:12→18:01)
[2021-12-13] MEDS: LISINOPRIL (20MG) 20 MG TABLET PO SCH (09:14)
[2021-12-13] MEDS: APIXABAN 5 MG TABLET PO SCH ×2 (09:18→20:36)
[2021-12-13] MEDS: FERROUS SULFATE (325 MG) 325 MG/TAB TABLET PO SCH ×2 (09:24→18:01)
[2021-12-13] MEDS: PROSOURCE / PROSTAT (PYXIS) 30 ML UDC PO SCH (10:12)
--- NOTE | 2021-12-13 10:45 | NUR ---
RN NOTES REPORT GIVEN TO RN TAY FOR CONTINUITY OF CARE
[2021-12-13] MEDS: INSULIN REGULAR, HUMAN 100 UNIT/ML 3 ML VIAL SQ PRN ×4 (10:53→21:30)
--- NOTE | 2021-12-13 11:00 | NUR ---
ENVIRONMENTAL INTERN NOTE RECEIVED PATIENT ON BED. PATIENT IS ALERT/ ORIENTED X4. ON ROOM AIR, WITH EQUAL AND UNLABORED BREATHING, TOLERATED WELL, WITH NO S/S OF DISTRESS NOTED. PATIENT WITH IV ACCESS ON THE RIGHT AC, ON SALINE LOCK, PATENT AND INTACT. NO COMPLAIN OF PAIN AND DISCOMFORT AT THIS TIME. PATIENT ON TEACHING SPECIALISTS SHOWING SR WITH HR 87 BPM. WITH ILEOSTOMY OF THE RIGHT ABDOMEN, INTACT. COMFORT MEASURES PROVIDED. IN STABLE CONDITION. SAFETY MEASURES ENSURED WITH BED IN LOWEST LOCKED POSITION. CALL LIGHT AND TABLE WITHIN REACH AT ALL TIMES. WILL CONTINUE TO MONITOR.
--- NOTE | 2021-12-13 11:15 | NUR ---
FERRULER NOTE SEEN BY DR. FOREMAN
[2021-12-13] MEDS: HYDROCODONE/APAP 10/325MG TABLET PO PRN ×2 (11:37→18:01)
[2021-12-13 12:00] VITALS: BP 92/63
[2021-12-13 12:32] LABS: CALCIUM, SERUM 8.6 mg/dL (8.5-10.1); CREATININE 1.1 mg/dL (0.6-1.3); MAGNESIUM 1.4 mg/dL (1.8-2.4); PHOSPHORUS 3.9 mg/dL (2.5-4.9); POTASSIUM 5.8 mmol/L (3.5-5.1)
[2021-12-13] MEDS: SODIUM POLYSTYRENE SULFONATE 15 G/60 ML BOTTLE PO SCH ×2 (14:58→18:02)
--- NOTE | 2021-12-13 15:00 | NUR ---
[employer] LIEUT[employer]NT NOTE PATIENT SEEN BY DR. WARE.
[2021-12-13 15:07] LABS: BASOPHILS % (AUTO) 0.9 % (0.0-2.0); EOSINOPHILS % (AUTO) 2.2 % (0.0-6.0); HEMATOCRIT 37 % (33-45); HEMOGLOBIN 11.8 g/dL (11.5-14.8); LYMPHOCYTES % (AUTO) 32.3 % (20.0-44.0); MEAN CORPUSCULAR HGB CONC 32 g/dl (31.0-36.0); MEAN CORPUSCULAR VOLUME 81 fL (82-100); MONOCYTES # (AUTO) 0.2 K/uL (0.1-1.30); MONOCYTES % (AUTO) 7.5 % (2.0-12.0); NEUTROPHILS # (AUTO) 1.8 K/uL (1.8-8.9); NEUTROPHILS % (AUTO) 57.1 % (43.0-81.0); PLATELET COUNT (AUTO) 184 K/uL (150-450); RED BLOOD CELL COUNT(AUTO) 4.58 MIL/uL (4.0-5.2); WHITE BLOOD COUNT (AUTO) 3.1 K/uL (4.3-11.0)
--- NOTE | 2021-12-13 15:30 | NUR ---
CALENDER LET OFF OPERATOR NOTE RELAYED LATEST POTASSIUM RESULT TO DR. FOREMAN. WITH ORDERS MADE AND VERIFIED BY PHARMACY. MEDICATION GIVEN ORDERED. NO SIGNS AND SYMPTOMS OF HYPERKALEMIA NOTED AT THIS TIME.
[2021-12-13 16:00] VITALS: BP 98/53
[2021-12-13] MEDS ORDERED: NEPRO VAN 237 ML CAN PO PRN (16:00)
[2021-12-13] MEDS: ACETAMINOPHEN 325 MG TABLET PO PRN (16:35)
[2021-12-13] MEDS: ASCORBIC ACID 500 MG TABLET PO SCH (18:01)
--- NOTE | 2021-12-13 18:57 | NUR ---
ELECTRONIC PLOTTING SYSTEM OPERATOR CLOSING NOTE PATIENT ON BED. PATIENT IS ALERT/ ORIENTED X4. ON ROOM AIR, WITH EQUAL AND UNLABORED BREATHING, TOLERATED WELL, WITH NO S/S OF DISTRESS NOTED. PATIENT WITH RIGHT UPPER ARM MIDLINE IV ACCESS, ON SALINE LOCK, PATENT AND INTACT. NO COMPLAIN OF PAIN AND DISCOMFORT AT THIS TIME. PATIENT ON TRAIN BRAKER SHOWING SR WITH HR 80'S TO ST 102 BPM. WITH ILEOSTOMY OF THE RIGHT LOWER ABDOMEN, INTACT. COMFORT MEASURES PROVIDED. IN STABLE CONDITION. SAFETY MEASURES ENSURED WITH BED IN LOWEST LOCKED POSITION. CALL LIGHT AND TABLE WITHIN REACH AT ALL TIMES. ENDORSED TO NEXT SHIFT FOR CONTINUITY OF CARE.
[2021-12-13 20:00] VITALS: BP_SYST 89; BP_DIAS 53; BP_DIAS 58
[2021-12-13] MEDS: VENLAFAXINE XR 75 MG CAP.SR.24H PO SCH (21:24)
[2021-12-13] MEDS: ZINC SULFATE 220 MG CAPSULE PO SCH (21:24)
[2021-12-13] MEDS: TEMAZEPAM 15 MG CAPSULE PO PRN (22:06)
[2021-12-14] VITALS (7 sets, daily range): BP systolic 78–106; BP diastolic 50–80
[2021-12-14] MEDS ORDERED: IV NS 0.9% 500 ML IV ONE ×2 (01:00→02:00)
[2021-12-14] MEDS: MAG HYDROX/AL HYDROX/SIMETH 30 ML UDC PO PRN (01:05)
--- NOTE | 2021-12-14 04:19 | NUR ---
CLOSING NOTES: ALERT AND ORIENTATED X4 COOPERATIVE AND PLEASENT ILEOSTOMY RIGHT ABD BAG CHANGED X3 WATERY LIQUID AT 2400 B/P 78/50 CRISTÓBAL FARLEY MADE AWARE NSS GIVEN 500ML B/P 91/50 ASYMPTOMATIC MEDICATED X1 FOR ABD PAIN SLEPT MOST OF THE NIGHT USE THE CALL LIGHT TO ALERT THE NURSE SHE NEEDS ASSIST
--- NOTE | 2021-12-14 05:41 | NUR ---
VTE SCORE 2 SCD'S ORDERED OFFERED X2 PATIENT REFUSES
[2021-12-14] MEDS: BLOOD SUGAR DIAGNOSTIC 1 EACH STRIP IN SCH ×4 (05:57→21:59)
[2021-12-14] MEDS: ONDANSETRON HCL/PF 4 MG/2 ML VIAL IVP PRN (06:10)
--- NOTE | 2021-12-14 07:05 | NUR ---
FABRIC DESIGNER OPENING NOTES RECEIVED PATIENT IN BED RESTING, A/Ox4, ON ROOM AIR. NO S/S OF RESPIRATORY DISTRESS. PATIENT IS ON TELE MONITORING SINUS RHYTHM AT THIS TIME HR 98, NO S/S OR C/O OF CARDIAC DISTRESS. IV ACCESS R AC MIDLINE RUNNING NS @75 ML/HR. INTACT AND PATENT. PATIENT IS CONTINENT ABLE TO AMBULATE TO THE BATHROOM. ILEOSTOMY PRESENT ON RT ABDOMEN DRAINING WELL. SKIN IS INTACT. SAFETY MEASURES IN PLACE: BED IN LOWEST POSITION AND LOCKED, HOB ELEVATED, SIDE RAILS UP x2, AND CALL LIGHT WITHIN REACH. WILL CONTINUE TO MONITOR.
[2021-12-14] MEDS: PANTOPRAZOLE 40 MG TABLET.DR PO SCH (07:56)
[2021-12-14] MEDS: HYDROCODONE/APAP 10/325MG TABLET PO PRN ×3 (07:57→20:24)
--- NOTE | 2021-12-14 08:00 | NUR ---
RN NOTES: PATIENT COMPLAINED OF PAIN 7/10 PRN NARCO GIVEN @2537, WILL CONTINUE TO MONITOR.
[2021-12-14] MEDS: LISINOPRIL (20MG) 20 MG TABLET PO SCH (09:00)
[2021-12-14] MEDS: GABAPENTIN 100 MG CAPSULE PO SCH ×3 (09:00→17:00)
[2021-12-14 09:11] LABS: BASOPHILS % (AUTO) 0.5 % (0.0-2.0); EOSINOPHILS % (AUTO) 1.3 % (0.0-6.0); HEMATOCRIT 33 % (33-45); HEMOGLOBIN 10.6 g/dL (11.5-14.8); LYMPHOCYTES % (AUTO) 24.2 % (20.0-44.0); MEAN CORPUSCULAR HGB CONC 32 g/dl (31.0-36.0); MEAN CORPUSCULAR VOLUME 81 fL (82-100); MONOCYTES # (AUTO) 0.3 K/uL (0.1-1.30); NEUTROPHILS # (AUTO) 2.9 K/uL (1.8-8.9); PLATELET COUNT (AUTO) 177 K/uL (150-450); RED BLOOD CELL COUNT(AUTO) 4.04 MIL/uL (4.0-5.2); WHITE BLOOD COUNT (AUTO) 4.3 K/uL (4.3-11.0)
[2021-12-14] MEDS: SUCRALFATE 1 G TABLET PO SCH ×2 (09:27→17:28)
[2021-12-14] MEDS: VENLAFAXINE XR 150 MG CAP.SR.24H PO SCH (09:28)
[2021-12-14] MEDS: DOCUSATE SODIUM 100 MG CAPSULE PO SCH (09:28)
[2021-12-14] MEDS: FERROUS SULFATE (325 MG) 325 MG/TAB TABLET PO SCH ×2 (09:29→17:27)
[2021-12-14] MEDS: APIXABAN 5 MG TABLET PO SCH ×2 (09:29→22:01)
[2021-12-14] MEDS: MULTIVIT W/MINERALS 1 TAB TABLET PO SCH (09:29)
[2021-12-14] MEDS: FOLIC ACID 1 MG TABLET PO SCH (09:29)
[2021-12-14] MEDS: SODIUM POLYSTYRENE SULFONATE 15 G/60 ML BOTTLE PO SCH ×2 (09:30→17:30)
[2021-12-14] MEDS: PROSOURCE / PROSTAT (PYXIS) 30 ML UDC PO SCH (09:30)
[2021-12-14 10:04] LABS: ALBUMIN 3.2 g/dL (3.4-5.0); BILIRUBIN,TOTAL 0.2 mg/dL (0.2-1.0); CALCIUM, SERUM 8.6 mg/dL (8.5-10.1); MAGNESIUM 1.8 mg/dL (1.8-2.4); PHOSPHORUS 3.3 mg/dL (2.5-4.9); TOTAL PROTEIN, SERUM 7.6 g/dL (6.4-8.2)
[2021-12-14] MEDS: MORPHINE SULFATE INJ 2 MG/ML DISP.SYRIN IV PRN ×2 (10:34→16:45)
[2021-12-14 10:37] LABS: CREATININE 0.9 mg/dL (0.6-1.3)
--- NOTE | 2021-12-14 10:40 | NUR ---
RN NOTES PATIENT COMPLAINED OF PAIN 01/28, PRN MORPHINE GIVEN @1034, WILL CONTINUE TO MONITOR.
[2021-12-14] MEDS: INSULIN REGULAR, HUMAN 100 UNIT/ML 3 ML VIAL SQ PRN ×3 (12:02→22:19)
--- NOTE | 2021-12-14 14:20 | NUR ---
RN NOTES: PATIENT COMPLAINED OF PAIN 7/10 PRN NARCO GIVEN @5789, WILL CONTINUE TO MONITOR.
--- NOTE | 2021-12-14 16:45 | NUR ---
RN NOTES PATIENT COMPLAINED OF PAIN 12/28, PRN MORPHINE GIVEN @1645, WILL CONTINUE TO MONITOR.
[2021-12-14] MEDS: ASCORBIC ACID 500 MG TABLET PO SCH (17:28)
--- NOTE | 2021-12-14 17:30 | NUR ---
RN NOTES MIDLINE NURSE CAME AND INSERTED MIDLINE HORTENCIA, DRESSING INTACT AND PATENT, FLUSHES WELL. WILL CONTINUE TO MONITOR.
--- NOTE | 2021-12-14 18:38 | NUR ---
MS RN CLOSING NOTES PATIENT IN BED RESTING, A/Ox4, ON ROOM AIR. NO S/S OF RESPIRATORY DISTRESS. NO S/S OR C/O OF CARDIAC DISTRESS. IV ACCESS DEMETRIUS MIDLINE RUNNING NS @75 ML/HR AND HORTENCIA MIDLINE SL. INTACT AND PATENT. PATIENT IS CONTINENT ABLE TO AMBULATE TO THE BATHROOM. ILEOSTOMY PRESENT ON RT ABDOMEN DRAINING WELL, BAG CHANGED OUTPUT: 1000ML. SKIN IS INTACT. SAFETY MEASURES IN PLACE: BED IN LOWEST POSITION AND LOCKED, HOB ELEVATED, SIDE RAILS UP x2, AND CALL LIGHT WITHIN REACH. WILL ENDORSE TO NEXT SHIFT ANY CHANA.
--- NOTE | 2021-12-14 19:50 | NUR ---
MS RN OPENING NOTE PATIENT AWAKE IN BED, ALERT/ORIENTED X 4, PT ABLE TO MAKE NEEDS KNOWN. PT STABLE ON RA, NO S/S OF DISTRESS OR SOB NOTED, BREATHING EVEN AND UNLABORED. RIGHT ABDOMINAL ILEOSTOMY BAG IN PLACE, DRAINING SOFT/LOOSE GREEN STOOL. RIGHT UPPER ARM AND LEFT UPPER ARM MIDLINE INTACT AND INFUSING NS @ 75 ML/HR. SAFETY MEASURES IN PLACE: CALL LIGHT WITHIN REACH, SIDE RAILS UP X 2, BED LOCKED IN LOWEST POSITION. WILL CONTINUE TO MONITOR PATIENT
[2021-12-14] MEDS: ZINC SULFATE 220 MG CAPSULE PO SCH (21:58)
[2021-12-14] MEDS: VENLAFAXINE XR 75 MG CAP.SR.24H PO SCH (21:59)
[2021-12-14] MEDS: TEMAZEPAM 15 MG CAPSULE PO PRN (21:59)
[2021-12-14] MEDS: INSULIN GLARGINE, 100 UNIT/ML CARTRIDGE SQ SCH (22:18)
[2021-12-15 03:53] VITALS: BP 119/65
[2021-12-15] MEDS: ONDANSETRON HCL/PF 4 MG/2 ML VIAL IVP PRN ×3 (04:00→21:36)
[2021-12-15] MEDS: MORPHINE SULFATE INJ 2 MG/ML DISP.SYRIN IV PRN ×5 (04:00→20:48)
--- NOTE | 2021-12-15 04:09 | NUR ---
MS RN NOTE PATIENT REPORTING PERSISTENT NAUSEA AND 8/10 ABDOMINAL PAIN. VITAL SIGNS WNL, ZOFRAN 4 MG IV AND MORPHINE 2 MG IV GIVEN ORDERED. WILL CONTINUE TO MONITOR
[2021-12-15] MEDS: HYDROCODONE/APAP 10/325MG TABLET PO PRN ×2 (06:22→12:23)
[2021-12-15] MEDS: BLOOD SUGAR DIAGNOSTIC 1 EACH STRIP IN SCH ×4 (06:58→21:40)
[2021-12-15] MEDS: INSULIN REGULAR, HUMAN 100 UNIT/ML 3 ML VIAL SQ PRN ×2 (07:00→21:30)
--- NOTE | 2021-12-15 07:43 | NUR ---
MS RN CLOSING NOTE PATIENT AWAKE IN BED, ALERT/ORIENTED X 4, PT ABLE TO MAKE NEEDS KNOWN. PT STABLE ON RA, NO S/S OF DISTRESS OR SOB NOTED, BREATHING EVEN AND UNLABORED. RIGHT ABDOMINAL ILEOSTOMY BAG IN PLACE. RIGHT UPPER ARM AND LEFT UPPER ARM MIDLINE INTACT AND SALINE LOCKED. MEDICATIONS GIVEN ORDERED, PT NEEDS MET THROUGHOUT SHIFT. SAFETY MEASURES IN PLACE: CALL LIGHT WITHIN REACH, SIDE RAILS UP X 2, BED LOCKED IN LOWEST POSITION. ENDORSED TO DAY SHIFT NURSE FOR CONTINUITY OF CARE
--- NOTE | 2021-12-15 07:50 | NUR ---
RN OPENING NOTE PATIENT RECEIVED IN BED & AWAKE. A/OX4. UPON ASSESSMENT, PATIENT ILEOSTOMY BAG LEAKING. INSTANTLY CHANGED/REPLACED WITH NEW BAG. OUTPUT SHOWED SOFT GREEN STOOL, NO OBSERVATION OF BLOOD. WILL CONTINUE TO MONITOR FOR CHANGE IN CONDITION. NO OTHER S/SX OF DISTRESS OBSERVED. SAFETY MEASURES IN PLACE WITH BED IN LOWEST POSITION AND LOCKED. SIDERAIL UPX2. CALL LIGHT WITHIN REACH. WILL CONTINUE TO MONITOR.
[2021-12-15] MEDS: FERROUS SULFATE (325 MG) 325 MG/TAB TABLET PO SCH ×2 (08:12→16:11)
[2021-12-15] MEDS: FOLIC ACID 1 MG TABLET PO SCH (08:12)
[2021-12-15] MEDS: VENLAFAXINE XR 150 MG CAP.SR.24H PO SCH (08:12)
[2021-12-15] MEDS: MULTIVIT W/MINERALS 1 TAB TABLET PO SCH (08:12)
[2021-12-15] MEDS: PANTOPRAZOLE 40 MG TABLET.DR PO SCH (08:12)
[2021-12-15] MEDS: LISINOPRIL (20MG) 20 MG TABLET PO SCH (08:12)
[2021-12-15] MEDS: GABAPENTIN 100 MG CAPSULE PO SCH ×4 (08:12→16:18)
[2021-12-15] MEDS: SUCRALFATE 1 G TABLET PO SCH ×2 (08:12→16:11)
[2021-12-15] MEDS: SODIUM POLYSTYRENE SULFONATE 15 G/60 ML BOTTLE PO SCH ×2 (08:13→16:18)
[2021-12-15] MEDS: APIXABAN 5 MG TABLET PO SCH ×2 (08:32→21:21)
[2021-12-15] MEDS: DOCUSATE SODIUM 100 MG CAPSULE PO SCH (08:32)
[2021-12-15] MEDS: PROSOURCE / PROSTAT (PYXIS) 30 ML UDC PO SCH (08:34)
[2021-12-15] MEDS: IV NS 0.9% 1,000 ML IV PRN (15:50)
[2021-12-15] MEDS: ACETAMINOPHEN 325 MG TABLET PO PRN (16:12)
[2021-12-15] MEDS: ASCORBIC ACID 500 MG TABLET PO SCH (17:15)
--- NOTE | 2021-12-15 18:50 | NUR ---
RN CLOSING NOTE PATIENT REMAINED BED & AWAKE THROUGHOUT SHIFT. CONTINUES TO BE A/OX4. C/O PAIN MULTIPLE TIMES TO MID ABDOMINAL AREA 8-9/10 PAIN LEVEL. RECEIVED PRN MORPHINE @ 0800 & 1625 AND NORCO @ 1223. MIDLINE IV ACCESS TO RAC AND HORTENCIA BOTH REMAIN INTACT AND PATENT. NS RUNNING @ 75 ML/HR CONNECTED TO HORTENCIA. PATIENT HAD MULTIPLE EPISODES OF ILEOSTOMY LEAKING ON SHIFT. BAG CHANGED X4. STOMA BRIGHT RED, SURROUNDING SKIN INTACT AND WNL. STOOL APPEARS GREENISH BROWN AND SOFT WITH NO OBSERVATION OF BLOOD. PATIENT REFUSED SCHEDULED DOSES OF GABAPENTIN SHES STATES "IT DOES NOT WORK FOR ME, I DONT KNOW WHY THEY KEEP PRESCRIBING ME THAT". BP AND BLOOD SUGAR CHECKS STABLE AND WNL. NO OTHER S/SX OF DISTRESS OBSERVED. SAFETY MEASURES IN PLACE WITH BED IN LOWEST POSITION AND LOCKED. SIDERAIL UPX2. CALL LIGHT WITHIN REACH. WILL CONTINUE TO MONITOR.
[2021-12-15] MEDS: VENLAFAXINE XR 75 MG CAP.SR.24H PO SCH (21:21)
[2021-12-15] MEDS: ZINC SULFATE 220 MG CAPSULE PO SCH (21:21)
--- NOTE | 2021-12-15 21:30 | NUR ---
RN NOTE ILEOSTOMY LEAKING, CHANGED NEW ILEOSTOMY BAG
[2021-12-15] MEDS: INSULIN GLARGINE, 100 UNIT/ML CARTRIDGE SQ SCH (21:31)
[2021-12-15] MEDS: MUPIROCIN OINT 2% 22 GM TUBE NS SCH (21:54)
[2021-12-15] MEDS: TEMAZEPAM 15 MG CAPSULE PO PRN (22:25)
[2021-12-16] MEDS ORDERED: SODIUM BICARBONATE SYR 50 MEQ/50 ML DISP.SYRIN ONE ×2 (01:07→01:08)
[2021-12-16] MEDS: Sodium Bicarbonate 100 MEQ in IV NS 0.9% 1,000 ML IV SCH ×2 (01:45→12:13)
--- NOTE | 2021-12-16 01:46 | NUR ---
RN NOTE RECEIVED FROM JAVIER.LEATHER COLORER 2 AMPS OF SODIUM BICARB
[2021-12-16] MEDS: HYDROCODONE/APAP 10/325MG TABLET PO PRN ×2 (02:14→09:19)
[2021-12-16] MEDS: MORPHINE SULFATE INJ 2 MG/ML DISP.SYRIN IV PRN ×4 (03:40→16:43)
[2021-12-16 06:01] LABS: BASOPHILS # (AUTO) 0.1 K/uL (0.0-0.2); BASOPHILS % (AUTO) 0.7 % (0.0-2.0); EOSINOPHILS % (AUTO) 1.2 % (0.0-6.0); HEMATOCRIT 36 % (33-45); HEMOGLOBIN 11.7 g/dL (11.5-14.8); LYMPHOCYTES # (AUTO) 1.8 K/uL (0.8-4.8); MEAN CORPUSCULAR HGB CONC 33 g/dl (31.0-36.0); MEAN CORPUSCULAR VOLUME 80 fL (82-100); MONOCYTES # (AUTO) 0.7 K/uL (0.1-1.30); MONOCYTES % (AUTO) 9.7 % (2.0-12.0); NEUTROPHILS # (AUTO) 4.9 K/uL (1.8-8.9); NEUTROPHILS % (AUTO) 64.4 % (43.0-81.0); PLATELET COUNT (AUTO) 289 K/uL (150-450); RED BLOOD CELL COUNT(AUTO) 4.49 MIL/uL (4.0-5.2); WHITE BLOOD COUNT (AUTO) 7.6 K/uL (4.3-11.0)
[2021-12-16] MEDS: INSULIN REGULAR, HUMAN 100 UNIT/ML 3 ML VIAL SQ PRN ×4 (06:18→22:31)
[2021-12-16] MEDS: BLOOD SUGAR DIAGNOSTIC 1 EACH STRIP IN SCH ×4 (06:21→21:51)
--- NOTE | 2021-12-16 06:52 | NUR ---
RN NOTE PT RESTING IN BED, EASILY AROUSABLE TO STIMULI. NO C/O PAIN AT THIS TIME. RESPIRATIONS EVEN/UNLABORED. IV SITE: HORTENCIA MIDLINE INTACT/PATENT, INFUSING SODIUM BICARB IN NS @75ML/HR AND IJEOMA WELL. WITH ILEOSTOMY IN PLACE/INTACT. PT IN NO ACUTE DISTRESS. SAFETY MEASURES MAINTAINED.
--- NOTE | 2021-12-16 07:30 | NUR ---
RN OPENING NOTE PATIENT RECEIVED IN BED & AWAKE. A/OX4. NO S/SX OF DISTRESS OBSERVED OR REPORTED UPON ASSESSMENT. C/O PAIN TO MID ABDOMEN. PATIENT ILEOSTOMY INTACT WITH NO APPARENT LEAKING AT THIS TIME. OUTPUT STOOL CONTINUES TO BE SOFT & GREEN. NO OBSERVATION OF BLOOD. WILL CONTINUE TO MONITOR FOR CHANGE IN CONDITION. NO OTHER S/SX OF DISTRESS OBSERVED. SAFETY MEASURES IN PLACE WITH BED IN LOWEST POSITION AND LOCKED. SIDERAIL UPX2. CALL LIGHT WITHIN REACH. WILL CONTINUE TO MONITOR.
[2021-12-16 07:59] VITALS: BP 94/65
[2021-12-16] MEDS: MULTIVIT W/MINERALS 1 TAB TABLET PO SCH (08:48)
[2021-12-16] MEDS: SUCRALFATE 1 G TABLET PO SCH ×2 (08:48→17:43)
[2021-12-16] MEDS: PANTOPRAZOLE 40 MG TABLET.DR PO SCH (08:48)
[2021-12-16] MEDS: FOLIC ACID 1 MG TABLET PO SCH (08:49)
[2021-12-16] MEDS: VENLAFAXINE XR 150 MG CAP.SR.24H PO SCH (08:49)
[2021-12-16] MEDS: APIXABAN 5 MG TABLET PO SCH ×2 (08:49→21:43)
[2021-12-16] MEDS: FERROUS SULFATE (325 MG) 325 MG/TAB TABLET PO SCH ×2 (08:49→17:43)
[2021-12-16] MEDS: SODIUM POLYSTYRENE SULFONATE 15 G/60 ML BOTTLE PO SCH ×2 (09:00→17:00)
[2021-12-16] MEDS: DOCUSATE SODIUM 100 MG CAPSULE PO SCH (09:00)
[2021-12-16] MEDS: LISINOPRIL (20MG) 20 MG TABLET PO SCH (09:00)
[2021-12-16] MEDS: GABAPENTIN 100 MG CAPSULE PO SCH ×3 (09:00→17:00)
[2021-12-16] MEDS: PROSOURCE / PROSTAT (PYXIS) 30 ML UDC PO SCH (09:00)
[2021-12-16] MEDS: MUPIROCIN OINT 2% 22 GM TUBE NS SCH ×2 (09:20→21:43)
--- NOTE | 2021-12-16 09:35 | NUR ---
MS RN NOTE LEFT MESSAGE TO MEDICAL RECORD TO FOLLOW UP RECORDS FROM PREVIOUS PROCEDURE DONE AT [facility]
[2021-12-16 10:15] LABS: CREATININE 2.5 mg/dL (0.6-1.3)
[2021-12-16 10:20] LABS: ALBUMIN 3.3 g/dL (3.4-5.0); BILIRUBIN,TOTAL 0.2 mg/dL (0.2-1.0); MAGNESIUM 1.5 mg/dL (1.8-2.4); PHOSPHORUS 4.7 mg/dL (2.5-4.9); TOTAL PROTEIN, SERUM 7.5 g/dL (6.4-8.2)
[2021-12-16 16:00] VITALS: BP 91/56
[2021-12-16] MEDS: ASCORBIC ACID 500 MG TABLET PO SCH (17:44)
--- NOTE | 2021-12-16 18:13 | NUR ---
RN CLOSING NOTE PATIENT REMAINED BED & AWAKE THROUGHOUT SHIFT WITH INTERMITTENT EPISODES OF SLEEPING OBSERVED. CONTINUES TO BE A/OX4. C/O PAIN MULTIPLE TIMES TO MID ABDOMINAL AREA 8-9/10 PAIN LEVEL. RECEIVED PRN MORPHINE @ 0730 , 1219 & 1643 AND NORCO @ 0919. MIDLINE IV ACCESS TO RAC AND HORTENCIA BOTH REMAIN INTACT AND PATENT. BICARB/NS RUNNING @ 75 ML/HR CONNECTED TO HORTENCIA. ILEOSTOMY BAG EMPTIED X3 ON SHIFT. STOMA BRIGHT RED, SURROUNDING SKIN INTACT AND WNL. STOOL CONTINUES TO APPEAR GREENISH BROWN AND SOFT WITH NO OBSERVATION OF BLOOD. PATIENT CONTINUED TO REFUSE SCHEDULED DOSES OF GABAPENTIN. BP AND BLOOD SUGAR CHECKS STABLE AND WNL. PATIENT WILL BE NPO AFTER MIDNIGHT FOR SCHEDULED BOWEL FOLLOW THROUGH ON 12/17 IN THE AM. PATIENT AWARE. NO OTHER S/SX OF DISTRESS OBSERVED. SAFETY MEASURES IN PLACE WITH BED IN LOWEST POSITION AND LOCKED. SIDERAIL UPX2. CALL LIGHT WITHIN REACH. WILL CONTINUE TO MONITOR.
--- NOTE | 2021-12-16 19:58 | NUR ---
RN OPENING NOTE PATIENT ASLEEP IN BED EASILY WOKEN UP. A/OX4. MIDLINE IV ACCESS TO RAC AND HORTENCIA BOTH REMAIN INTACT AND PATENT. BICARB/NS RUNNING @ 75 ML/HR CONNECTED TO HORTENCIA. ILEOSTOMY BAG EMPTIED X3 ON SHIFT. STOMA BRIGHT RED, SURROUNDING SKIN INTACT AND WNL. PATIENT WILL BE NPO AFTER MIDNIGHT FOR SCHEDULED BOWEL FOLLOW THROUGH ON 12/17 IN THE AM. PATIENT AWARE. NO OTHER S/SX OF DISTRESS OBSERVED. SAFETY MEASURES IN PLACE WITH BED IN LOWEST POSITION AND LOCKED. SIDERAILS UPX2. CALL LIGHT WITHIN REACH. WILL CONTINUE TO MONITOR.
[2021-12-16 20:00] VITALS: BP_SYST 84; BP_SYST 93; BP_DIAS 54; BP_DIAS 56
[2021-12-16] MEDS: VENLAFAXINE XR 75 MG CAP.SR.24H PO SCH (21:47)
[2021-12-16] MEDS: ZINC SULFATE 220 MG CAPSULE PO SCH (21:47)
[2021-12-16] MEDS: INSULIN GLARGINE, 100 UNIT/ML CARTRIDGE SQ SCH (22:00)
[2021-12-16] MEDS: TEMAZEPAM 15 MG CAPSULE PO PRN (22:05)
[2021-12-17] MEDS: Sodium Bicarbonate 100 MEQ in IV NS 0.9% 1,000 ML IV SCH ×2 (00:41→10:11)
[2021-12-17 01:44] VITALS: BP 101/60
[2021-12-17] MEDS: MORPHINE SULFATE INJ 2 MG/ML DISP.SYRIN IV PRN ×5 (02:05→23:46)
--- NOTE | 2021-12-17 02:08 | NUR ---
rn notes prn morphine given for 9/10 pain tolerated well.
[2021-12-17] MEDS: INSULIN REGULAR, HUMAN 100 UNIT/ML 3 ML VIAL SQ PRN ×4 (06:36→22:58)
[2021-12-17] MEDS: BLOOD SUGAR DIAGNOSTIC 1 EACH STRIP IN SCH ×4 (06:36→22:04)
[2021-12-17 06:43] LABS: ALBUMIN 2.4 g/dL (3.4-5.0); BILIRUBIN,TOTAL 0.1 mg/dL (0.2-1.0); CALCIUM, SERUM 7.9 mg/dL (8.5-10.1); CREATININE 1.1 mg/dL (0.6-1.3); MAGNESIUM 1.3 mg/dL (1.8-2.4); PHOSPHORUS 2.7 mg/dL (2.5-4.9); POTASSIUM 4.3 mmol/L (3.5-5.1); TOTAL PROTEIN, SERUM 5.6 g/dL (6.4-8.2)
--- NOTE | 2021-12-17 06:45 | NUR ---
RN OPENING NOTE PATIENT ASLEEP IN BED EASILY WOKEN UP. A/OX4. MIDLINE IV ACCESS TO RAC AND HORTENCIA BOTH REMAIN INTACT AND PATENT. BICARB/NS RUNNING @75 ML/HR CONNECTED TO HORTENCIA. ILEOSTOMY BAG EMPTIED X1 ON SHIFT. STOMA BRIGHT RED, SURROUNDING SKIN INTACT AND WNL. PATIENT WILL BE NPO SINCE MIDNIGHT FOR SCHEDULED BOWEL FOLLOW THROUGH TODAY IN THE AM. PATIENT AWARE. NO OTHER S/SX OF DISTRESS OBSERVED. PRN MORPHINE GIVEN NEEDED FOR PAIN AND TOLERATED WELL. ALL NEEDS MET.SAFETY MEASURES IN PLACE WITH BED IN LOWEST POSITION AND LOCKED.SIDE RAILS UPX2. CALL LIGHT WITHIN REACH. WILL ENDORSE CARE TO DAY SHIFT NURSE.
[2021-12-17 06:49] LABS: BASOPHILS % (AUTO) 0.6 % (0.0-2.0); EOSINOPHILS % (AUTO) 3.5 % (0.0-6.0); HEMATOCRIT 25 % (33-45); HEMOGLOBIN 8.1 g/dL (11.5-14.8); LYMPHOCYTES # (AUTO) 0.7 K/uL (0.8-4.8); LYMPHOCYTES % (AUTO) 37.8 % (20.0-44.0); MEAN CORPUSCULAR HGB CONC 33 g/dl (31.0-36.0); MEAN CORPUSCULAR VOLUME 81 fL (82-100); MONOCYTES # (AUTO) 0.2 K/uL (0.1-1.30); MONOCYTES % (AUTO) 11.8 % (2.0-12.0); NEUTROPHILS # (AUTO) 0.9 K/uL (1.8-8.9); NEUTROPHILS % (AUTO) 46.3 % (43.0-81.0); PLATELET COUNT (AUTO) 104 K/uL (150-450); RED BLOOD CELL COUNT(AUTO) 3.04 MIL/uL (4.0-5.2)
[2021-12-17 06:55] LABS: WHITE BLOOD COUNT (AUTO) 1.9 K/uL (4.3-11.0)
--- NOTE | 2021-12-17 07:14 | NUR ---
MS RN NOTES STAT REDRAW OF LABS ORDER DUE TO SEVERE CHANGES FROM YESTERDAYS RESULTS. WILL ENDORSE TO DAY SHIFT NURSE.
--- NOTE | 2021-12-17 07:30 | NUR ---
MS RN OPENING NOTES: RECEIVED PT IN BED, ASLEEP AND EASILY AROUSED WITH STIMULI. A/OX 4 AND ABLE TO VERBALIZED NEEDS. NO SOB OR CARDIAC DISTRESS NOTED, AFEBRILE. ON ROOM AIR AND TOLERATING WELL. IV ACCESS ON DEMETRIUS HORTENCIA MIDLINE. DEMETRIUS MIDLINE WITH BICARB NS @ 75CC/HR AND HORTENCIA MIDLINE PATENT INTACT ANND SALINE LOCKED. NOTED WITH ILEOSTOMY PATENT. SAFETY PREC MAINTAINED: BED LOCKED AND IN LOWEST POSITION, SIDE RAILS UP X 2. CALL LIGHT IN EASY REACH FOR HELP. MAINTAINED NPO.
[2021-12-17 08:00] VITALS: BP 96/57
[2021-12-17] MEDS: PANTOPRAZOLE 40 MG TABLET.DR PO SCH (08:04)
[2021-12-17] MEDS: ONDANSETRON HCL/PF 4 MG/2 ML VIAL IVP PRN (08:05)
[2021-12-17] MEDS: APIXABAN 5 MG TABLET PO SCH ×2 (09:00→22:03)
[2021-12-17] MEDS: DOCUSATE SODIUM 100 MG CAPSULE PO SCH (09:00)
[2021-12-17] MEDS: SUCRALFATE 1 G TABLET PO SCH ×2 (09:00→17:12)
[2021-12-17] MEDS: FOLIC ACID 1 MG TABLET PO SCH (09:00)
[2021-12-17] MEDS: MULTIVIT W/MINERALS 1 TAB TABLET PO SCH (09:00)
[2021-12-17] MEDS: VENLAFAXINE XR 150 MG CAP.SR.24H PO SCH (09:00)
[2021-12-17] MEDS: LISINOPRIL (20MG) 20 MG TABLET PO SCH (09:00)
[2021-12-17] MEDS: PROSOURCE / PROSTAT (PYXIS) 30 ML UDC PO SCH (09:00)
[2021-12-17] MEDS: FERROUS SULFATE (325 MG) 325 MG/TAB TABLET PO SCH ×2 (09:00→17:12)
[2021-12-17] MEDS: SODIUM POLYSTYRENE SULFONATE 15 G/60 ML BOTTLE PO SCH ×2 (09:00→17:00)
[2021-12-17] MEDS: GABAPENTIN 100 MG CAPSULE PO SCH ×4 (09:00→17:00)
[2021-12-17 09:28] LABS: BASOPHILS % (AUTO) 0.6 % (0.0-2.0); EOSINOPHILS % (AUTO) 2.5 % (0.0-6.0); HEMATOCRIT 27 % (33-45); LYMPHOCYTES # (AUTO) 0.8 K/uL (0.8-4.8); LYMPHOCYTES % (AUTO) 34.3 % (20.0-44.0); MEAN CORPUSCULAR HGB CONC 33 g/dl (31.0-36.0); MEAN CORPUSCULAR VOLUME 80 fL (82-100); MONOCYTES # (AUTO) 0.2 K/uL (0.1-1.30); MONOCYTES % (AUTO) 10.4 % (2.0-12.0); NEUTROPHILS # (AUTO) 1.1 K/uL (1.8-8.9); NEUTROPHILS % (AUTO) 52.2 % (43.0-81.0); PLATELET COUNT (AUTO) 115 K/uL (150-450); WHITE BLOOD COUNT (AUTO) 2.2 K/uL (4.3-11.0)
[2021-12-17 09:47] LABS: ALBUMIN 2.9 g/dL (3.4-5.0); BILIRUBIN,TOTAL 0.1 mg/dL (0.2-1.0); CALCIUM, SERUM 8.6 mg/dL (8.5-10.1); CREATININE 1.1 mg/dL (0.6-1.3); POTASSIUM 4.7 mmol/L (3.5-5.1); TOTAL PROTEIN, SERUM 6.3 g/dL (6.4-8.2)
[2021-12-17] MEDS: HYDROCODONE/APAP 10/325MG TABLET PO PRN ×2 (09:59→22:24)
[2021-12-17] MEDS ORDERED: MAGNESIUM OXIDE 400 MG TABLET PO ONE (11:00)
[2021-12-17] MEDS: MUPIROCIN OINT 2% 22 GM TUBE NS SCH ×2 (11:44→22:05)
[2021-12-17] MEDS ORDERED: DIATR MEGLU/DIATRIZOATE SODIUM 120 ML BOTTLE (GASTROGRAPHIN) ONE (13:03)
--- NOTE | 2021-12-17 14:55 | NUR ---
RN NOTES: RECEIVED A CALL FROM PRICING ANALYST [facility], PER ROMÁN THEY ONLY DID MRCP UNABLE TO DO ABDOMEN W/O CONTRAST. IF MRCP RESULT IS NOT OK OR NOT ENOUGH FOR MD, THEY WILL DO ABDOMEN W/O CONTRAST, NPO POST MIDNIGHT TOMORROW 12/18/21
[2021-12-17 16:13] VITALS: BP 113/59
[2021-12-17] MEDS: ASCORBIC ACID 500 MG TABLET PO SCH (17:34)
--- NOTE | 2021-12-17 19:10 | NUR ---
MS/RN OPENING NOTE RECEIVED PATIENT RESTING IN BED. AWAKE, ALERT AND ORIENTED X 4. ABLE TO MAKE NEEDS KNOWN. C/O GENERALIZED PAIN 12/28 - WILL ADMINISTER PRN PAIN MEDS PER MD ORDER. CONTINUES ON ROOM AIR WITH NO S/SX OF RESPIRATORY DISTRESS NOTED. IV ACCESS TO RIGHT UPPER ARM MIDLINE AND LEFT UPPER ARM MIDLINE BOTH INTACT AND PATENT. CONTINUES ON IVF NS @ 75ML/HR. PATIENT IS AMBULATORY WITH STEADY GAIT. CALL LIGHT WITHIN REACH. ASPIRATION, FALL AND SAFETY PRECAUTIONS MAINTAINED. ALL NEEDS ATTENDED TO AT THIS TIME.
--- NOTE | 2021-12-17 19:43 | NUR ---
MS RN CLOSING NOTES: PT IN BED, AWAKE AND WATCHING SERIES ON HER PHONE. A/OX 4 AND ABLE TO VERBALIZED NEEDS. NO SOB OR CARDIAC DISTRESS NOTED, AFEBRILE. ON ROOM AIR AND TOLERATING WELL. IV ACCESS ON DEMETRIUS HORTENCIA MIDLINE. DEMETRIUS MIDLINE WITH BICARB NS @ 75CC/HR AND HORTENCIA MIDLINE PATENT INTACT ANND SALINE LOCKED. NOTED WITH ILEOSTOMY PATENT, CHANGED 4X IN MY SHIFT. SAFETY PREC MAINTAINED: BED LOCKED AND IN LOWEST POSITION, SIDE RAILS UP X 2. CALL LIGHT IN EASY REACH FOR HELP. ENDORSED TO SPINNER IRON FOR CHANA.
[2021-12-17] MEDS: IV NS 0.9% 1,000 ML IV SCH (19:48)
[2021-12-17] MEDS: INSULIN GLARGINE, 100 UNIT/ML CARTRIDGE SQ SCH (22:00)
[2021-12-17] MEDS: ZINC SULFATE 220 MG CAPSULE PO SCH (22:01)
[2021-12-17] MEDS: TEMAZEPAM 15 MG CAPSULE PO PRN (22:01)
[2021-12-17] MEDS: VENLAFAXINE XR 75 MG CAP.SR.24H PO SCH (22:01)
[2021-12-17] MEDS ORDERED: VANCOMYCIN 1 GM VIAL ONE (22:40)
--- NOTE | 2021-12-17 23:30 | NUR ---
MS/RN NOTE SBFT RESULT SHOWED NO BOWEL OBSTRUCTION. PER AM RN - IF RESULT OF SBFT OK THEN NO NEED FOR CT OF ABDOMEN. CLARIFIED WITH VASCULAR SURGERY PHYSICIAN MANAGER HVAC CRISTÓBAL FARLEY WHO MADE PATIENT CLEAR LIQUID DIET STARTING AT MIDNIGHT IN CASE OF CT OF ABDOMEN TOMORROW. PATIENT AWARE AND AGREEABLE.
[2021-12-18] MEDS: MORPHINE SULFATE INJ 2 MG/ML DISP.SYRIN IV PRN ×5 (02:59→21:57)
[2021-12-18] MEDS: HYDROCODONE/APAP 10/325MG TABLET PO PRN ×3 (06:04→16:51)
[2021-12-18] MEDS: ONDANSETRON HCL/PF 4 MG/2 ML VIAL IVP PRN (06:06)
--- NOTE | 2021-12-18 06:10 | NUR ---
MS/RN CLOSING NOTE PATIENT CURRENTLY RESTING IN BED. AWAKE, ALERT AND ORIENTED X 4. ABLE TO MAKE NEEDS KNOWN. DENIES PAIN AT THIS TIME. CONTINUES ON ROOM AIR WITH NO S/SX OF RESPIRATORY DISTRESS NOTED. IV ACCESS TO RIGHT UPPER ARM MIDLINE AND LEFT UPPER ARM MIDLINE BOTH INTACT AND PATENT. CONTINUES ON IVF NS @ 75ML/HR. PATIENT IS AMBULATORY WITH STEADY GAIT. PATIENT HAS BEEN CLEAR LIQUID DIET SINCE MIDNIGHT FOR POSSIBLE CT ABDOMEN TODAY. CALL LIGHT WITHIN REACH. ASPIRATION, FALL AND SAFETY PRECAUTIONS MAINTAINED. ALL NEEDS ATTENDED TO AT THIS TIME.
--- NOTE | 2021-12-18 07:35 | NUR ---
MS/RN OPENING NOTE RECEIVED PATIENT RESTING IN BED. AWAKE, ALERT AND ORIENTED X 4. ABLE TO MAKE NEEDS KNOWN. C/O GENERALIZED PAIN 12/28 - WILL ADMINISTER PRN PAIN MEDS PER MD ORDER. CONTINUES ON ROOM AIR WITH NO S/SX OF RESPIRATORY DISTRESS NOTED. IV ACCESS TO RIGHT UPPER ARM MIDLINE AND LEFT UPPER ARM MIDLINE BOTH INTACT AND PATENT. CONTINUES ON IVF NS @ 75ML/HR. PATIENT IS AMBULATORY WITH STEADY GAIT. CALL LIGHT WITHIN REACH. ASPIRATION, FALL AND SAFETY PRECAUTIONS MAINTAINED, WILL CONTINUE TO MONITOR.
[2021-12-18] MEDS: BLOOD SUGAR DIAGNOSTIC 1 EACH STRIP IN SCH ×4 (07:36→22:14)
[2021-12-18] MEDS: SODIUM POLYSTYRENE SULFONATE 15 G/60 ML BOTTLE PO SCH ×3 (09:00→16:53)
[2021-12-18] MEDS: PANTOPRAZOLE 40 MG TABLET.DR PO SCH (09:08)
[2021-12-18] MEDS: MULTIVIT W/MINERALS 1 TAB TABLET PO SCH (09:08)
[2021-12-18] MEDS: GABAPENTIN 100 MG CAPSULE PO SCH ×4 (09:09→16:52)
[2021-12-18] MEDS: SUCRALFATE 1 G TABLET PO SCH ×2 (09:09→16:51)
[2021-12-18] MEDS: VENLAFAXINE XR 150 MG CAP.SR.24H PO SCH (09:09)
[2021-12-18] MEDS: FERROUS SULFATE (325 MG) 325 MG/TAB TABLET PO SCH ×2 (09:09→16:51)
[2021-12-18] MEDS: FOLIC ACID 1 MG TABLET PO SCH (09:09)
[2021-12-18] MEDS: APIXABAN 5 MG TABLET PO SCH ×2 (09:11→21:56)
[2021-12-18] MEDS: PROSOURCE / PROSTAT (PYXIS) 30 ML UDC PO SCH (09:31)
[2021-12-18] MEDS: DOCUSATE SODIUM 100 MG CAPSULE PO SCH (09:33)
[2021-12-18] MEDS: MUPIROCIN OINT 2% 22 GM TUBE NS SCH ×2 (10:12→21:57)
[2021-12-18] MEDS: LISINOPRIL (20MG) 20 MG TABLET PO SCH (10:15)
[2021-12-18] MEDS: IV NS 0.9% 1,000 ML IV SCH ×2 (10:16→22:24)
--- NOTE | 2021-12-18 12:00 | NUR ---
RN NOTES: PT REFUSED ACCUCHECK, PT STATES: " I HAVEN'T EATEN ANYTHING, I'M VERY HUNGRY, NO USE TO CHECK MY SUGAR!"
[2021-12-18 12:30] LABS: CALCIUM, SERUM 8.8 mg/dL (8.5-10.1); CREATININE 0.8 mg/dL (0.6-1.3); POTASSIUM 4.7 mmol/L (3.5-5.1)
[2021-12-18] MEDS: INSULIN REGULAR, HUMAN 100 UNIT/ML 3 ML VIAL SQ PRN ×2 (19:08→22:18)
[2021-12-18] MEDS: ASCORBIC ACID 500 MG TABLET PO SCH (19:12)
--- NOTE | 2021-12-18 19:55 | NUR ---
MS/RN OPENING NOTE RECEIVED PATIENT RESTING IN BED. AWAKE, ALERT AND ORIENTED X 4. ABLE TO MAKE NEEDS KNOWN. CONTINUES ON ROOM AIR WITH NO S/SX OF RESPIRATORY DISTRESS NOTED. DIET NOW CCHO FROM CLEAR LIQUID. IV ACCESS TO RIGHT UPPER ARM MIDLINE AND LEFT UPPER ARM MIDLINE BOTH INTACT AND PATENT. CONTINUES ON IVF NS @ 75ML/HR. PATIENT IS AMBULATORY WITH STEADY GAIT. COLOSTOMY BAG CHANGED, PRN AND SCHEDULED MEDS, GIVEN. CALL LIGHT WITHIN REACH. ASPIRATION, FALL AND SAFETY PRECAUTIONS MAINTAINED, ENDORSED TO PM SHIFT. Addendum: 12/19/21 at 0746 by BLAYNE MARIO RN RN CLOSING NOTES:
[2021-12-18 20:00] VITALS: BP 103/60
[2021-12-18 20:46] VITALS: BP 103/60
--- NOTE | 2021-12-18 21:02 | NUR ---
MS RN OPENING NOTE PT RECEIVED IN BED, AWAKE, A&O X4, CALM, COOPERATIVE. PT ON RA WITH CURRENT O2SAT OF 98%, NO S/S OF RESP DISTRESS, NO SOB OR COUGH, NON-LABORED AND EQUAL BREATHING. VSS, WILL CONTINUE TO MONITOR NEEDED. PT AMBULATORY WITH STEADY GAIT. HORTENCIA MIDLINE AND DEMETRIUS MIDLINE INTACT AND PATENT, FLUSHES EASILY WITH NO RESISTANCE, HAS NS RUNNING AT 75 ML/HR. PT NOTED TO HAVE RLQ COLOSTOMY; OSTOMY IS PINK AND MOIST WITH NO SIGNS OF NECROSIS. OSTOMY BAG NOTED TO BE LEAKING; OSTOMY CLEANSED AND APPLIED NEW BAG. BED IN LOWEST POSITION, CALL LIGHT WITHIN REACH, SIDE RAILS UP X2. WILL CONTINUE TO MONITOR THROUGHOUT THE NIGHT.
[2021-12-18] MEDS: ZINC SULFATE 220 MG CAPSULE PO SCH (21:53)
[2021-12-18] MEDS: VENLAFAXINE XR 75 MG CAP.SR.24H PO SCH (21:58)
[2021-12-18] MEDS: INSULIN GLARGINE, 100 UNIT/ML CARTRIDGE SQ SCH (22:16)
[2021-12-18] MEDS: TEMAZEPAM 15 MG CAPSULE PO PRN (22:20)
--- NOTE | 2021-12-18 22:24 | NUR ---
RN NOTE PT COMPLAINS OF A 9/10 ABDOMINAL PAIN; PT GIVEN MORPHINE 2 MG. PT ALSO REQUESTS FOR SLEEPING MEDICATION; PT GIVEN TEMAZEPAM 15 MG. WILL MONITOR FOR EFFECTIVENESS.
--- NOTE | 2021-12-19 05:26 | NUR ---
RN NOTE PT REPORTS SHE WANTS A BREAK FROM HER IVF; PT DISCONNECTED FROM IV.
--- NOTE | 2021-12-19 05:28 | NUR ---
RN NOTE UNABLE TO DRAW LAB FROM MIDLINE. PT REQUESTS FOR LAB JEWEL BEARING GRINDER TO RETURN AT 0700.
--- NOTE | 2021-12-19 06:23 | NUR ---
MS RN CLOSING NOTE PT REMAINS IN BED, ASLEEP BUT EASILY AROUSABLE, SLEPT INTERMITTENTLY THROUGHOUT THE NIGHT, A&O X4, CALM, COOPERATIVE. REMAINS ON RA WITH 02SAT OF 98%; PT SHOWS NO S/S OF RESP DISTRESS, NON-LABORED AND EQUAL BREATHING, NO SOB OR COUGH, APPEARS COMFORTABLE OVERALL. RLQ ILEOSTOMY C/D/I; CHANGED OSTOMY BAG DURING BEGINNING OF SHIFT. OSTOMY APPEARS PINK AND MOIST, NO SIGNS OF NECROSIS; OSTOMY HAD TOTAL OUTPUT OF 275 ML. DEMETRIUS AND HORTENCIA MIDLINE BOTH INTACT AND PATENT, FLUSHES EASILY WITH NO RESISTANCE. PT WANTED BREAK FROM IVF, THEREFORE PT DISCONNECTED FROM IV. BED IN LOWEST POSITION, CALL LIGHT WITHIN REACH, SIDE RAILS UP X2. WILL ENDORSE TO DAYSHIFT NURSE TO CONTINUE CARE.
[2021-12-19] MEDS: MORPHINE SULFATE INJ 2 MG/ML DISP.SYRIN IV PRN ×4 (06:37→20:05)
--- NOTE | 2021-12-19 06:37 | NUR ---
RN NOTE PT COMPLAINS OF 10/10 ABDOMINAL PAIN THAT'S DESCRIBED ACHING AND REQUESTS FOR MORPHINE. PT ADMINISTERED MORPHINE 2 MG.
[2021-12-19] MEDS: HYDROCODONE/APAP 10/325MG TABLET PO PRN ×2 (07:37→14:32)
[2021-12-19] MEDS: PANTOPRAZOLE 40 MG TABLET.DR PO SCH (07:37)
--- NOTE | 2021-12-19 07:46 | NUR ---
MS RN OPENING NOTE PT RECEIVED IN BED, AWAKE, A&O X4, CALM, COOPERATIVE, ABLE TO MAKE NEEDS KNOWN. PT ON RA WITH CURRENT O2SAT OF 98%. NO S/S OF RESP DISTRESS, NO SOB OR COUGH, NON-LABORED AND EQUAL BREATHING. WILL CONTINUE TO MONITOR NEEDED. C/O PAIN 11/27, WILL ADMINISTER PRN MEDS ORDERED. PT AMBULATORY WITH STEADY GAIT. HORTENCIA MIDLINE AND DEMETRIUS MIDLINE INTACT AND PATENT, FLUSHES EASILY WITH NO RESISTANCE, HAS NS RUNNING AT 75 ML/HR. PT NOTED TO HAVE RLQ COLOSTOMY; OSTOMY IS PINK AND MOIST WITH NO SIGNS OF NECROSIS. BED IN LOWEST POSITION, CALL LIGHT WITHIN REACH, SIDE RAILS UP X2. WILL CONTINUE TO MONITOR
[2021-12-19] MEDS: BLOOD SUGAR DIAGNOSTIC 1 EACH STRIP IN SCH ×4 (07:51→21:23)
[2021-12-19] MEDS: SODIUM POLYSTYRENE SULFONATE 15 G/60 ML BOTTLE PO SCH ×2 (09:00→17:00)
[2021-12-19] MEDS: PROSOURCE / PROSTAT (PYXIS) 30 ML UDC PO SCH (09:08)
[2021-12-19] MEDS: FOLIC ACID 1 MG TABLET PO SCH (09:14)
[2021-12-19] MEDS: DOCUSATE SODIUM 100 MG CAPSULE PO SCH (09:14)
[2021-12-19] MEDS: SUCRALFATE 1 G TABLET PO SCH ×2 (09:14→17:07)
[2021-12-19] MEDS: MULTIVIT W/MINERALS 1 TAB TABLET PO SCH (09:14)
[2021-12-19] MEDS: VENLAFAXINE XR 150 MG CAP.SR.24H PO SCH (09:15)
[2021-12-19] MEDS: FERROUS SULFATE (325 MG) 325 MG/TAB TABLET PO SCH ×2 (09:15→17:08)
[2021-12-19] MEDS: GABAPENTIN 100 MG CAPSULE PO SCH ×3 (09:15→17:00)
--- NOTE | 2021-12-19 09:15 | NUR ---
MEDICAL RECORDS REQUEST RN CALLED [facility] MEDICAL RECORDS DEPT @ [phone]. SPOKE TO ZACKERY, REQUESTED PT RECORDS AND ASKED FOR ETA. PER ZACKERY, THEY ARE SHORT STAFFED AND CANNOT GIVE ETA HOWEVER WILL CALL RN ONCE THERE'S AN UPDATE. RN UPDATED PT AND FINANCIAL SYSTEMS ANALYST WITH PROGRESS, WILL ATTEMPT ANOTHER CALL IF NOT RECEIVED.
[2021-12-19] MEDS: APIXABAN 5 MG TABLET PO SCH ×2 (09:19→20:06)
[2021-12-19] MEDS: LISINOPRIL (20MG) 20 MG TABLET PO SCH (09:23)
[2021-12-19] MEDS: MUPIROCIN OINT 2% 22 GM TUBE NS SCH ×2 (09:42→20:06)
[2021-12-19] MEDS ORDERED: IV NS 0.9% 1,000 ML IV PRN (09:43)
[2021-12-19 10:24] LABS: BASOPHILS % (AUTO) 0.4 % (0.0-2.0); EOSINOPHILS % (AUTO) 1.5 % (0.0-6.0); HEMATOCRIT 28 % (33-45); LYMPHOCYTES % (AUTO) 35.2 % (20.0-44.0); MEAN CORPUSCULAR HGB CONC 33 g/dl (31.0-36.0); MEAN CORPUSCULAR VOLUME 81 fL (82-100); MONOCYTES # (AUTO) 0.3 K/uL (0.1-1.30); MONOCYTES % (AUTO) 9.6 % (2.0-12.0); NEUTROPHILS # (AUTO) 1.5 K/uL (1.8-8.9); NEUTROPHILS % (AUTO) 53.3 % (43.0-81.0); PLATELET COUNT (AUTO) 106 K/uL (150-450); RED BLOOD CELL COUNT(AUTO) 3.39 MIL/uL (4.0-5.2); WHITE BLOOD COUNT (AUTO) 2.9 K/uL (4.3-11.0)
[2021-12-19 10:37] LABS: ALBUMIN 3.1 g/dL (3.4-5.0); BILIRUBIN,TOTAL 0.1 mg/dL (0.2-1.0); CALCIUM, SERUM 8.5 mg/dL (8.5-10.1); CREATININE 1.1 mg/dL (0.6-1.3); PHOSPHORUS 3.4 mg/dL (2.5-4.9); POTASSIUM 5.1 mmol/L (3.5-5.1); TOTAL PROTEIN, SERUM 6.8 g/dL (6.4-8.2)
[2021-12-19 10:45] LABS: MAGNESIUM 1.1 mg/dL (1.8-2.4)
[2021-12-19] MEDS: INSULIN REGULAR, HUMAN 100 UNIT/ML 3 ML VIAL SQ PRN ×3 (12:21→21:24)
--- NOTE | 2021-12-19 15:05 | NUR ---
MEDICAL RECORDS REQUEST RN CALLED [facility] MEDICAL RECORDS DEPT @ [phone]. CALL WENT TO VOICEMAIL BUT CANNOT LEAVE MSG. RN TRIED QUALITY CONTROL SYSTEMS MANAGER EXTENSION, CANNOT LEAVE MSG SINCE MAILBOX IS FULL. MADE PT AND CASTINGS TRIMMER AWARE. PT STATES SHE WILL HAVE HER SISTER PARAMEDIC INSTRUCTOR IN PERSON, COPY OF AUTHORIZATION TO RELEASE RECORDS AND DIRECT FAX# TO MS UNIT GIVEN TO PT, PT THANKED RN.
[2021-12-19] MEDS: ASCORBIC ACID 500 MG TABLET PO SCH (17:07)
--- NOTE | 2021-12-19 19:18 | NUR ---
MS RN CLOSING NOTE: PT RECEIVED IN BED, AWAKE, A&O X4, CALM, COOPERATIVE, ABLE TO MAKE NEEDS KNOWN. PT ON RA WITH CURRENT O2SAT OF 98%. NO S/S OF RESP DISTRESS, NO SOB OR COUGH, NON-LABORED AND EQUAL BREATHING. WILL CONTINUE TO MONITOR NEEDED. C/O PAIN 11/27, WILL ADMINISTER PRN MEDS ORDERED. PT AMBULATORY WITH STEADY GAIT. HORTENCIA MIDLINE, INTACT AND PATENT, FLUSHES EASILY WITH NO RESISTANCE, HAS NS RUNNING AT 75 ML/HR. DEMETRIUS MIDLINE DC, NON PATENT. PT NOTED TO HAVE RLQ COLOSTOMY; OSTOMY IS PINK AND MOIST WITH NO SIGNS OF NECROSIS. BED IN LOWEST POSITION, CALL LIGHT WITHIN REACH, SIDE RAILS UP X2. WILL ENDORSE TO PM SHIFT
--- NOTE | 2021-12-19 19:30 | NUR ---
RN OPENING NOTES RECEIVED PT IN BED, LOOKING AT PHONE. AOx4, ABLE TO MAKE NEEDS KNOWN. ON RA AND TOLERATING WELL. NO SOB NOTED. NO S/SX OF RESPIRATORY DISTRESS NOTED. IV ACCESS IN HORTENCIA MIDLINE. IV IS INTACT, PATENT, AND FLUSHING WELL. SAFETY PRECAUTIONS IN PLACE: BED IN LOWEST, LOCKED POSITION, SIDERAILS UPx2, AND BRAKES ON. TABLE AND CALL LIGHT WITHIN REACH. WILL CONTINUE TO MONITOR.
--- NOTE | 2021-12-19 20:05 | NUR ---
RN NOTES ADMINISTERED MORPHINE FOR PAIN PER MD ORDER. VS WNL. WILL CONTINUE TO MONITOR.
[2021-12-19] MEDS: TEMAZEPAM 15 MG CAPSULE PO PRN (21:17)
[2021-12-19] MEDS: VENLAFAXINE XR 75 MG CAP.SR.24H PO SCH (21:17)
--- NOTE | 2021-12-19 21:17 | NUR ---
RN NOTES ADMINISTERED TEMAZEPAM PER PT REQUEST FOR SLEEP.
[2021-12-19] MEDS: ZINC SULFATE 220 MG CAPSULE PO SCH (21:18)
[2021-12-19] MEDS: INSULIN GLARGINE, 100 UNIT/ML CARTRIDGE SQ SCH (21:26)
[2021-12-20] MEDS: MORPHINE SULFATE INJ 2 MG/ML DISP.SYRIN IV PRN ×4 (01:53→19:51)
--- NOTE | 2021-12-20 01:53 | NUR ---
RN NOTES ADMINISTERED MORPHINE FOR PAIN PER MD ORDER. VS WNL. WILL CONTINUE TO MONITOR.
[2021-12-20] MEDS: HYDROCODONE/APAP 10/325MG TABLET PO PRN ×3 (03:13→16:59)
--- NOTE | 2021-12-20 03:13 | NUR ---
RN NOTES ADMINISTERED NORCO FOR PAIN PER MD ORDER. WILL CONTINUE TO MONITOR.
--- NOTE | 2021-12-20 06:30 | NUR ---
RN CLOSING NOTES REPORT GIVEN TO DAYSHIFT NURSE. PT STABLE. NO DISTRESS NOTED.
[2021-12-20] MEDS: BLOOD SUGAR DIAGNOSTIC 1 EACH STRIP IN SCH ×4 (06:39→21:16)
[2021-12-20] MEDS: INSULIN REGULAR, HUMAN 100 UNIT/ML 3 ML VIAL SQ PRN ×4 (06:51→21:23)
--- NOTE | 2021-12-20 06:51 | NUR ---
RECEIVED CRITICAL LAB VALUE FOR POTASSIUM OF 2.7. WILL ENDORSE TO ANASTASIA EPPS. Addendum: 12/20/21 at 2049 by YENNIFER ABDI RN WRONG PATIENT. PLEASE DISREGARD.
[2021-12-20 08:00] VITALS: BP 127/81
--- NOTE | 2021-12-20 08:10 | NUR ---
RN OPENING NOTE PATIENT RECEIVED IN BED & SLEEPING. A/OX4. NO S/SX OF DISTRESS OBSERVED OR REPORTED UPON ASSESSMENT. NO C/O PAIN UPON ASSESSMENT. ILEOSTOMY REMAINS INTACT WITH NO APPARENT LEAKING AT THIS TIME. WILL CONTINUE TO MONITOR FOR CHANGE IN CONDITION. NO OTHER S/SX OF DISTRESS OBSERVED. SAFETY MEASURES IN PLACE WITH BED IN LOWEST POSITION AND LOCKED. SIDERAIL UPX2. CALL LIGHT WITHIN REACH. WILL CONTINUE TO MONITOR.
[2021-12-20] MEDS: PANTOPRAZOLE 40 MG TABLET.DR PO SCH (08:26)
[2021-12-20] MEDS: VENLAFAXINE XR 150 MG CAP.SR.24H PO SCH (08:26)
[2021-12-20] MEDS: FOLIC ACID 1 MG TABLET PO SCH (08:26)
[2021-12-20] MEDS: MULTIVIT W/MINERALS 1 TAB TABLET PO SCH (08:26)
[2021-12-20] MEDS: LISINOPRIL (20MG) 20 MG TABLET PO SCH (08:27)
[2021-12-20] MEDS: SUCRALFATE 1 G TABLET PO SCH ×2 (08:27→17:49)
[2021-12-20] MEDS: FERROUS SULFATE (325 MG) 325 MG/TAB TABLET PO SCH ×2 (08:27→17:49)
[2021-12-20] MEDS: MUPIROCIN OINT 2% 22 GM TUBE NS SCH ×2 (08:28→21:16)
[2021-12-20] MEDS: PROSOURCE / PROSTAT (PYXIS) 30 ML UDC PO SCH (08:34)
[2021-12-20] MEDS: DOCUSATE SODIUM 100 MG CAPSULE PO SCH (08:34)
[2021-12-20] MEDS: GABAPENTIN 100 MG CAPSULE PO SCH ×3 (08:34→17:00)
[2021-12-20] MEDS: SODIUM POLYSTYRENE SULFONATE 15 G/60 ML BOTTLE PO SCH ×2 (08:34→17:00)
[2021-12-20] MEDS: APIXABAN 5 MG TABLET PO SCH ×2 (08:38→21:10)
[2021-12-20 08:50] LABS: BASOPHILS % (AUTO) 0.4 % (0.0-2.0); HEMATOCRIT 31 % (33-45); HEMOGLOBIN 10.2 g/dL (11.5-14.8); LYMPHOCYTES # (AUTO) 1.4 K/uL (0.8-4.8); LYMPHOCYTES % (AUTO) 36.6 % (20.0-44.0); MEAN CORPUSCULAR HGB CONC 33 g/dl (31.0-36.0); MEAN CORPUSCULAR VOLUME 80 fL (82-100); MONOCYTES # (AUTO) 0.4 K/uL (0.1-1.30); MONOCYTES % (AUTO) 10.2 % (2.0-12.0); NEUTROPHILS # (AUTO) 1.9 K/uL (1.8-8.9); NEUTROPHILS % (AUTO) 49.8 % (43.0-81.0); PLATELET COUNT (AUTO) 135 K/uL (150-450); WHITE BLOOD COUNT (AUTO) 3.8 K/uL (4.3-11.0)
[2021-12-20 09:18] LABS: ALBUMIN 3.4 g/dL (3.4-5.0); BILIRUBIN,TOTAL 0.2 mg/dL (0.2-1.0); CREATININE 0.9 mg/dL (0.6-1.3); PHOSPHORUS 3.4 mg/dL (2.5-4.9); POTASSIUM 4.5 mmol/L (3.5-5.1); TOTAL PROTEIN, SERUM 7.1 g/dL (6.4-8.2)
[2021-12-20 09:27] LABS: MAGNESIUM 1.2 mg/dL (1.8-2.4)
[2021-12-20 16:10] VITALS: BP 115/75
[2021-12-20] MEDS: ASCORBIC ACID 500 MG TABLET PO SCH (17:49)
--- NOTE | 2021-12-20 18:39 | NUR ---
RN CLOSING NOTE PATIENT OBSERVED AMBULATING THROUGHOUT ROOM WELL IN BED SLEEPING INTERMITTENTLY THROUGHOUT SHIFT. REMAINED A/OX4. NO S/SX OF DISTRESS OBSERVED OR REPORTED UPON ASSESSMENT. C/O PAIN THROUGHOUT SHIFT. RECEIVED PRN MORPHINE X2 WELL PRN NORCO X2. MEDICATIONS EFFECTIVE PER PAIN RE-ASSESSMENT. ILEOSTOMY REMAINS INTACT WITH NO APPARENT LEAKING. RECEIVED SHOWER. BLOOD SUGAR LEVELS ON SHIFT WERE 258 AND 244. RECEIVED INSULIN COVERAGE BOTH TIMES PER SLIDING-SCALE ORDER. WILL CONTINUE TO MONITOR FOR CHANGE IN CONDITION. NO OTHER S/SX OF DISTRESS OBSERVED. SAFETY MEASURES IN PLACE WITH BED IN LOWEST POSITION AND LOCKED. SIDERAIL UPX2. CALL LIGHT WITHIN REACH. WILL CONTINUE TO MONITOR.
--- NOTE | 2021-12-20 19:52 | NUR ---
RN NOTES ADMINISTERED MORPHINE FOR PAIN PER MD ORDER. VS WNL. WILL CONTINUE TO MONITOR.
[2021-12-20 20:00] VITALS: BP 90/52
[2021-12-20] MEDS: VENLAFAXINE XR 75 MG CAP.SR.24H PO SCH (21:08)
[2021-12-20] MEDS: ZINC SULFATE 220 MG CAPSULE PO SCH (21:08)
[2021-12-20] MEDS: TEMAZEPAM 15 MG CAPSULE PO PRN (21:09)
--- NOTE | 2021-12-20 21:09 | NUR ---
RN NOTES ADMINISTERED MALOX FOR UPSET STOMACH PER PT REQUEST. ADMINISTERED TEMAZEPAM FOR SLEEP PER PT REQUEST.
[2021-12-20] MEDS: MAG HYDROX/AL HYDROX/SIMETH 30 ML UDC PO PRN (21:11)
[2021-12-20] MEDS: INSULIN GLARGINE, 100 UNIT/ML CARTRIDGE SQ SCH (21:21)
[2021-12-21] MEDS: MORPHINE SULFATE INJ 2 MG/ML DISP.SYRIN IV PRN ×6 (00:59→20:29)
--- NOTE | 2021-12-21 01:00 | NUR ---
RN NOTES ADMINISTERED MORPHINE FOR PAIN PER MD ORDER. VS WNL. WILL CONTINUE TO MONITOR.
--- NOTE | 2021-12-21 05:08 | NUR ---
RN NOTES ADMINISTERED MORPHINE FOR PAIN PER MD ORDER. VS WNL. WILL CONTINUE TO MONITOR.
[2021-12-21] MEDS: BLOOD SUGAR DIAGNOSTIC 1 EACH STRIP IN SCH ×4 (06:45→22:00)
[2021-12-21] MEDS: INSULIN REGULAR, HUMAN 100 UNIT/ML 3 ML VIAL SQ PRN ×3 (06:46→16:59)
--- NOTE | 2021-12-21 06:48 | NUR ---
RN CLOSING NOTES PT IN BED, ASLEEP, AWAKENS TO TACTILE STIMULI. AOx4, ABLE TO MAKE NEEDS KNOWN. ON RA AND TOLERATING WELL. NO SOB NOTED. NO S/SX OF RESPIRATORY DISTRESS NOTED. IV ACCESS IN HORTENCIA MIDLINE. IV IS INTACT, PATENT, AND FLUSHING WELL. ALL ORDERS CARRIED OUT. ALL NEEDS MET. PT KEPT CLEAN AND DRY. SAFETY PRECAUTIONS IN PLACE: BED IN LOWEST, LOCKED POSITION, SIDERAILS UPx2, AND BRAKES ON. TABLE AND CALL LIGHT WITHIN REACH. WILL ENDORSE TO ONCOMING SHIFT FOR CHANA.
[2021-12-21 08:00] VITALS: BP 116/75
[2021-12-21] MEDS: FOLIC ACID 1 MG TABLET PO SCH (08:42)
[2021-12-21] MEDS: LISINOPRIL (20MG) 20 MG TABLET PO SCH (08:42)
[2021-12-21] MEDS: SUCRALFATE 1 G TABLET PO SCH ×2 (08:43→16:48)
[2021-12-21] MEDS: PANTOPRAZOLE 40 MG TABLET.DR PO SCH (08:43)
[2021-12-21] MEDS: FERROUS SULFATE (325 MG) 325 MG/TAB TABLET PO SCH ×2 (08:43→16:48)
[2021-12-21] MEDS: VENLAFAXINE XR 150 MG CAP.SR.24H PO SCH (08:43)
[2021-12-21] MEDS: MULTIVIT W/MINERALS 1 TAB TABLET PO SCH (08:43)
[2021-12-21] MEDS: APIXABAN 5 MG TABLET PO SCH ×2 (08:46→22:21)
[2021-12-21] MEDS: DOCUSATE SODIUM 100 MG CAPSULE PO SCH (08:47)
[2021-12-21] MEDS: GABAPENTIN 100 MG CAPSULE PO SCH ×3 (08:47→16:49)
[2021-12-21] MEDS: SODIUM POLYSTYRENE SULFONATE 15 G/60 ML BOTTLE PO SCH ×2 (08:47→16:49)
[2021-12-21] MEDS: MUPIROCIN OINT 2% 22 GM TUBE NS SCH ×2 (08:48→21:00)
[2021-12-21] MEDS: PROSOURCE / PROSTAT (PYXIS) 30 ML UDC PO SCH (08:54)
[2021-12-21 08:55] LABS: BASOPHILS # (AUTO) 0.1 K/uL (0.0-0.2); BASOPHILS % (AUTO) 1.5 % (0.0-2.0); EOSINOPHILS % (AUTO) 2.3 % (0.0-6.0); HEMATOCRIT 35 % (33-45); HEMOGLOBIN 11.3 g/dL (11.5-14.8); LYMPHOCYTES # (AUTO) 1.5 K/uL (0.8-4.8); LYMPHOCYTES % (AUTO) 30.4 % (20.0-44.0); MEAN CORPUSCULAR HGB CONC 33 g/dl (31.0-36.0); MEAN CORPUSCULAR VOLUME 80 fL (82-100); MONOCYTES # (AUTO) 0.4 K/uL (0.1-1.30); MONOCYTES % (AUTO) 8.3 % (2.0-12.0); NEUTROPHILS # (AUTO) 2.9 K/uL (1.8-8.9); NEUTROPHILS % (AUTO) 57.5 % (43.0-81.0); PLATELET COUNT (AUTO) 176 K/uL (150-450); RED BLOOD CELL COUNT(AUTO) 4.31 MIL/uL (4.0-5.2)
[2021-12-21 09:08] LABS: ALBUMIN 3.6 g/dL (3.4-5.0); BILIRUBIN,TOTAL 0.2 mg/dL (0.2-1.0); CALCIUM, SERUM 9.3 mg/dL (8.5-10.1); MAGNESIUM 1.3 mg/dL (1.8-2.4); PHOSPHORUS 3.7 mg/dL (2.5-4.9); POTASSIUM 4.8 mmol/L (3.5-5.1); TOTAL PROTEIN, SERUM 7.7 g/dL (6.4-8.2)
[2021-12-21] MEDS: HYDROCODONE/APAP 10/325MG TABLET PO PRN (14:21)
[2021-12-21 16:27] VITALS: BP 139/79
[2021-12-21] MEDS: ASCORBIC ACID 500 MG TABLET PO SCH (17:02)
[2021-12-21 20:00] VITALS: BP 122/51
--- NOTE | 2021-12-21 20:04 | NUR ---
RN CLOSING NOTE PATIENT OBSERVED AMBULATING THROUGHOUT ROOM WELL IN BED SLEEPING INTERMITTENTLY THROUGHOUT SHIFT. REMAINED A/OX4. NO S/SX OF DISTRESS OBSERVED OR REPORTED UPON ASSESSMENT. C/O PAIN THROUGHOUT SHIFT. RECEIVED PRN MORPHINE WELL PRN NORCO . MEDICATIONS EFFECTIVE PER PAIN RE-ASSESSMENT. ILEOSTOMY REPLACED DUE TO LEAKAGE. BLOOD SUGAR LEVELS ON SHIFT WERE 207 AND 211. RECEIVED INSULIN COVERAGE BOTH TIMES PER SLIDING-SCALE ORDER. WILL CONTINUE TO MONITOR FOR CHANGE IN CONDITION. NO OTHER S/SX OF DISTRESS OBSERVED. SAFETY MEASURES IN PLACE WITH BED IN LOWEST POSITION AND LOCKED. SIDERAIL UPX2. CALL LIGHT WITHIN REACH. WILL CONTINUE TO MONITOR.
--- NOTE | 2021-12-21 20:32 | NUR ---
MS RN OPENING NOTES: RECEIVED PATIENT AWAKE IN BED, BED IN LOW POSITION CALL LIGHTS WITHIN REACH, NO COMPLAIN OF PAIN AND DISCOMFORT AT THIS TIME, ON ROOM AIR SATURATNG WELL WITH IV LINE AT [facility], PATIENT IS A/OX 4 AMBULATORY AND ABLE TO MAKE NEEDS KNOWN PATIENT KEPT CLEAN AND DRY ALL NEEDS MET WILL CONTINUE TO MONITOR.
--- NOTE | 2021-12-21 21:30 | NUR ---
RN NOTES: MEDICATION NOT GIVEN, CANT FIND BACTROBAN OINTMENT MAKE A FOLLOW UP WITH PHARMACY IN AM
[2021-12-21] MEDS: VENLAFAXINE XR 75 MG CAP.SR.24H PO SCH (22:15)
[2021-12-21] MEDS: ZINC SULFATE 220 MG CAPSULE PO SCH (22:15)
[2021-12-21] MEDS: TEMAZEPAM 15 MG CAPSULE PO PRN (22:29)
[2021-12-21] MEDS: INSULIN GLARGINE, 100 UNIT/ML CARTRIDGE SQ SCH (22:35)
--- NOTE | 2021-12-21 22:39 | NUR ---
RN NOTES: BLOOD SUGAR 339- PATIENT REFUSED REGULAR INSULIN PER SLIDING SCALE BUT ACCEPTED THE LONG ACTING INSULIN GLARGINE 15 UNITS AT BEDTIME
[2021-12-22] MEDS: HYDROCODONE/APAP 10/325MG TABLET PO PRN ×3 (02:25→14:58)
[2021-12-22] MEDS: MORPHINE SULFATE INJ 2 MG/ML DISP.SYRIN IV PRN ×3 (06:12→17:10)
--- NOTE | 2021-12-22 07:00 | NUR ---
RN NOTES: BLOOD SUGAR-150/ 2 UNITS INSULIN GIVEN PER SLIDING SCALE
--- NOTE | 2021-12-22 07:46 | NUR ---
MS RN CLOSING NOTES: PATIENT AWAKE IN BED, BED IN LOW POSITION CALL LIGHTS WITHIN REACH, NO COMPLAIN OF PAIN AND DISCOMFORT AT THIS TIME, ON ROOM AIR SATURATING WELL, PATIENT HAS ILEOSTOMY TUBE CHANGED AND CLEAN, CONSENT FORM SIGNED PATIENT KEPT CLEAN AND DRY ALL NEEDS MET ENDORSE TO INCOMING SHIFT.
[2021-12-22] MEDS: INSULIN REGULAR, HUMAN 100 UNIT/ML 3 ML VIAL SQ PRN ×4 (07:50→21:55)
--- NOTE | 2021-12-22 07:50 | NUR ---
RN OPENING NOTES RECEIVED PATIENT IN BED AWAKE, A/O X4, VERBALLY RESPONSIVE. NO SIGNS OF ACUTE DISTRESS NOTED. ON ROOM AIR, NO SOB NOTED, BREATHING EVEN AND UNLABORED. NO C/O PAIN AT THIS TIME. NOTED WITH LEFT UPPER ARM MIDLINE, INTACT AND PATENT, SALINE LOCKED. WITH ILEOSTOMY ON RLQ. SAFETY MEASURE IN PLACE. BED IN LOWEST AND LOCKED POSITION, SIDE RAILS UP X2, CALL LIGHT PLACED WITHIN EASY REACH. WILL CONTINUE TO MONITOR PATIENT.
[2021-12-22] MEDS: BLOOD SUGAR DIAGNOSTIC 1 EACH STRIP IN SCH ×4 (07:51→21:52)
[2021-12-22] MEDS: PANTOPRAZOLE 40 MG TABLET.DR PO SCH (08:21)
[2021-12-22] MEDS: LISINOPRIL (20MG) 20 MG TABLET PO SCH (09:00)
[2021-12-22] MEDS: APIXABAN 5 MG TABLET PO SCH ×2 (09:00→21:00)
[2021-12-22] MEDS: SODIUM POLYSTYRENE SULFONATE 15 G/60 ML BOTTLE PO SCH ×2 (09:00→17:00)
--- NOTE | 2021-12-22 09:00 | NUR ---
RN NOTE ALBARO WITHHELD PATIENT FOR SURGERY TOMORROW.
[2021-12-22 09:09] LABS: BASOPHILS % (AUTO) 0.6 % (0.0-2.0); EOSINOPHILS % (AUTO) 2.6 % (0.0-6.0); HEMATOCRIT 35 % (33-45); HEMOGLOBIN 11.3 g/dL (11.5-14.8); LYMPHOCYTES % (AUTO) 34.7 % (20.0-44.0); MEAN CORPUSCULAR HGB CONC 32 g/dl (31.0-36.0); MEAN CORPUSCULAR VOLUME 82 fL (82-100); MONOCYTES # (AUTO) 0.6 K/uL (0.1-1.30); MONOCYTES % (AUTO) 10.9 % (2.0-12.0); NEUTROPHILS % (AUTO) 51.2 % (43.0-81.0); PLATELET COUNT (AUTO) 178 K/uL (150-450); WHITE BLOOD COUNT (AUTO) 5.9 K/uL (4.3-11.0)
[2021-12-22] MEDS: GABAPENTIN 100 MG CAPSULE PO SCH ×4 (09:09→17:00)
[2021-12-22] MEDS: VENLAFAXINE XR 150 MG CAP.SR.24H PO SCH (09:09)
[2021-12-22] MEDS: SUCRALFATE 1 G TABLET PO SCH ×2 (09:09→17:05)
[2021-12-22] MEDS: DOCUSATE SODIUM 100 MG CAPSULE PO SCH (09:09)
[2021-12-22] MEDS: FERROUS SULFATE (325 MG) 325 MG/TAB TABLET PO SCH ×2 (09:09→17:05)
[2021-12-22] MEDS: MULTIVIT W/MINERALS 1 TAB TABLET PO SCH (09:09)
[2021-12-22] MEDS: FOLIC ACID 1 MG TABLET PO SCH (09:09)
[2021-12-22] MEDS: PROSOURCE / PROSTAT (PYXIS) 30 ML UDC PO SCH (09:14)
[2021-12-22] MEDS: MUPIROCIN OINT 2% 22 GM TUBE NS SCH (09:17)
[2021-12-22 09:25] LABS: ALBUMIN 3.6 g/dL (3.4-5.0); BILIRUBIN,TOTAL 0.2 mg/dL (0.2-1.0); CREATININE 1.1 mg/dL (0.6-1.3); MAGNESIUM 1.5 mg/dL (1.8-2.4); PHOSPHORUS 4.2 mg/dL (2.5-4.9); POTASSIUM 5.8 mmol/L (3.5-5.1); TOTAL PROTEIN, SERUM 8.2 g/dL (6.4-8.2)
[2021-12-22] MEDS: ASCORBIC ACID 500 MG TABLET PO SCH (17:05)
[2021-12-22] MEDS: GLUCERNA SHAKE 237 ML CAN PO SCH (17:05)
--- NOTE | 2021-12-22 18:10 | NUR ---
MS RN NOTE SPOKE WITH BHARGAV OF RADIOLOGY REGARDING GASTRO GAFFIN TEST IF IT CAN BE PRIORITIZED IN AM TOMORROW BECAUSE DR. WARE WILL DO THE PATIENT'S SURGERY AROUND 2 PM TOMORROW. BHARGAV SAID THAT HE HAD TAKEN NOTE AND WILL, TRY TO PRIORITIZE PATIENT.
--- NOTE | 2021-12-22 18:47 | NUR ---
RN CLOSING NOTES PATIENT IN BED AWAKE, A/O X4, VERBALLY RESPONSIVE. NO SIGNS OF ACUTE DISTRESS NOTED. REMAINS STABLE IN ROOM AIR, NO SOB NOTED, BREATHING EVEN AND UNLABORED. MIDLINE ON LEFT UPPER ARM #18G INTACT AND PATENT, SALINE LOCKED. DUE MEDS GIVEN, TOLERATED WELL. ILEOSTOMY CARE DONE, BAG CHANGED. SAFETY MEASURE IN PLACE, BED IN LOWEST AND LOCKED POSITION, SIDE RAILS UP X2, CALL LIGHT PLACED WITHIN EASY REACH. WILL ENDORSE TO NEXT SHIFT FOR CONTINUITY OF CARE.
--- NOTE | 2021-12-22 19:30 | NUR ---
RN OPENING NOTE RECEIVED PATIENT IN BED AWAKE, A/O X4, NO S/S OF ACUTE DISTRESS NOTED. REMAINS STABLE IN ROOM AIR, NO SOB NOTED, BREATHING EVEN AND UNLABORED. MIDLINE ON LEFT UPPER ARM #18G INTACT AND PATENT, SALINE LOCKED. PATIENT HAS ILEOSTOMY, SAFETY MEASURE IN PLACE, BED IN LOWEST AND LOCKED POSITION, SIDE RAILS UP X2, CALL LIGHT PLACED WITHIN EASY REACH. WILL ENDORSE TO NEXT SHIFT FOR CONTINUITY OF CARE Addendum: 12/22/21 at 2048 by ADRIANA JIMENEZ RN WILL NOT ENDORSE TO NEXT SHIFT/ THIS IS OPENING NOTE
[2021-12-22 20:00] VITALS: BP 105/58
[2021-12-22] MEDS: TEMAZEPAM 15 MG CAPSULE PO PRN (21:17)
[2021-12-22] MEDS: VENLAFAXINE XR 75 MG CAP.SR.24H PO SCH (21:17)
[2021-12-22] MEDS: ZINC SULFATE 220 MG CAPSULE PO SCH (21:18)
[2021-12-22] MEDS: INSULIN GLARGINE, 100 UNIT/ML CARTRIDGE SQ SCH (22:06)
--- NOTE | 2021-12-22 22:06 | NUR ---
RN NOTE PATIENT WAS ADVISED TOP BE NPO AFTER MIDNIGHT. PATIENT STILL WANTED BOTH DOSES OF INSULIN. 6 UNITS OF HUMULIN, AND 15 UNITS OF HER LANTUS. PATIENT WAS GIVEN JELLO AND A SANDWICH TO HELP WITH BLOOD SUGAR. BS AT WAS 256 PRIOR TO INSULIN GIVEN.
[2021-12-23] MEDS: MORPHINE SULFATE INJ 2 MG/ML DISP.SYRIN IV PRN ×4 (01:36→14:54)
--- NOTE | 2021-12-23 01:42 | NUR ---
RN NOTE PATIENT COMPLAINING OF 8/10 PAIN ON ABD, MORPHINE 2 MG GIVEN TO MANAGE THE PAIN. WILL REASSESS AT A LATER TIME
--- NOTE | 2021-12-23 02:06 | NUR ---
RN NOTE PATIENT PAIN AFTER MORPHINE WAS 8/10. I ACCODENTLY SUBMITTED THE REASSESSMENT TO FAST AND DIDNT CLICK 8 I BELIVE. SO PATIENT ASKED FOR HER NORCO.
[2021-12-23] MEDS: HYDROCODONE/APAP 10/325MG TABLET PO PRN ×3 (02:23→17:54)
[2021-12-23] MEDS: PANTOPRAZOLE 40 MG TABLET.DR PO SCH (06:33)
[2021-12-23] MEDS: BLOOD SUGAR DIAGNOSTIC 1 EACH STRIP IN SCH ×4 (06:46→21:45)
[2021-12-23 06:48] LABS: BASOPHILS % (AUTO) 0.8 % (0.0-2.0); EOSINOPHILS % (AUTO) 3.1 % (0.0-6.0); HEMATOCRIT 34 % (33-45); HEMOGLOBIN 10.9 g/dL (11.5-14.8); LYMPHOCYTES # (AUTO) 1.4 K/uL (0.8-4.8); LYMPHOCYTES % (AUTO) 28.1 % (20.0-44.0); MEAN CORPUSCULAR HGB CONC 33 g/dl (31.0-36.0); MEAN CORPUSCULAR VOLUME 82 fL (82-100); MONOCYTES # (AUTO) 0.6 K/uL (0.1-1.30); MONOCYTES % (AUTO) 11.7 % (2.0-12.0); NEUTROPHILS # (AUTO) 2.8 K/uL (1.8-8.9); NEUTROPHILS % (AUTO) 56.3 % (43.0-81.0); PLATELET COUNT (AUTO) 167 K/uL (150-450); RED BLOOD CELL COUNT(AUTO) 4.13 MIL/uL (4.0-5.2); WHITE BLOOD COUNT (AUTO) 4.9 K/uL (4.3-11.0)
--- NOTE | 2021-12-23 06:50 | NUR ---
RN CLOSING NOTE PATIENT IN BED AWAKE, A/O X4, NO S/S OF ACUTE DISTRESS NOTED. REMAINS STABLE IN ROOM AIR, NO SOB NOTED, BREATHING EVEN AND UNLABORED. MIDLINE ON LEFT UPPER ARM #18G INTACT AND PATENT, SALINE LOCKED. DUE MEDS GIVEN, TOLERATED WELL. SAFETY MEASURE IN PLACE, BED IN LOWEST AND LOCKED POSITION, SIDE RAILS UP X2, CALL LIGHT PLACED WITHIN EASY REACH. WILL ENDORSE TO NEXT SHIFT FOR CONTINUITY OF CARE.
--- NOTE | 2021-12-23 07:30 | NUR ---
RN Opening Notes Received report from RN, pt is stable, AOx4, able to express concerns and needs. Pt made aware of procedure and scheduled imaging. Pt reports no problem, no discomfort. Pt does not show signs of distress. All safety precautions taken, bed at lowest position, call light and table within pts reach.
[2021-12-23 07:43] LABS: ALBUMIN 3.3 g/dL (3.4-5.0); BILIRUBIN,TOTAL 0.3 mg/dL (0.2-1.0); CALCIUM, SERUM 8.8 mg/dL (8.5-10.1); MAGNESIUM 1.5 mg/dL (1.8-2.4); PHOSPHORUS 5.6 mg/dL (2.5-4.9); POTASSIUM 5.6 mmol/L (3.5-5.1); TOTAL PROTEIN, SERUM 7.4 g/dL (6.4-8.2)
[2021-12-23] MEDS: GLUCERNA SHAKE 237 ML CAN PO SCH ×2 (08:00→17:56)
[2021-12-23 08:22] VITALS: BP 112/68
[2021-12-23] MEDS: LISINOPRIL (20MG) 20 MG TABLET PO SCH (09:00)
[2021-12-23] MEDS: SUCRALFATE 1 G TABLET PO SCH ×2 (09:00→17:41)
[2021-12-23] MEDS: SODIUM POLYSTYRENE SULFONATE 15 G/60 ML BOTTLE PO SCH ×2 (09:00→17:58)
[2021-12-23] MEDS: GABAPENTIN 100 MG CAPSULE PO SCH ×4 (09:00→17:41)
[2021-12-23] MEDS: MULTIVIT W/MINERALS 1 TAB TABLET PO SCH (09:00)
[2021-12-23] MEDS: PROSOURCE / PROSTAT (PYXIS) 30 ML UDC PO SCH (09:00)
[2021-12-23] MEDS: DOCUSATE SODIUM 100 MG CAPSULE PO SCH (09:00)
[2021-12-23] MEDS: APIXABAN 5 MG TABLET PO SCH ×2 (09:00→21:31)
[2021-12-23] MEDS: FERROUS SULFATE (325 MG) 325 MG/TAB TABLET PO SCH ×2 (09:00→17:41)
[2021-12-23] MEDS: VENLAFAXINE XR 150 MG CAP.SR.24H PO SCH (09:00)
[2021-12-23] MEDS: FOLIC ACID 1 MG TABLET PO SCH (09:00)
[2021-12-23] MEDS ORDERED: DIATR MEGLU/DIATRIZOATE SODIUM 120 ML BOTTLE (GASTROGRAPHIN) ONE (09:13)
--- NOTE | 2021-12-23 09:30 | NUR ---
ms clark breakfast served,due meds given,tolerated well.
[2021-12-23] MEDS ORDERED: MAGNESIUM OXIDE 400 MG TABLET PO ONE (10:30)
[2021-12-23 11:08] LABS: CALCIUM, SERUM 9.1 mg/dL (8.5-10.1); CREATININE 1.1 mg/dL (0.6-1.3); POTASSIUM 5.9 mmol/L (3.5-5.1)
--- NOTE | 2021-12-23 15:30 | NUR ---
ms rn patient ready to go but refused due to pain meds not yet avialable there, case briefer aware, rescheduled it in am.
[2021-12-23] MEDS: ASCORBIC ACID 500 MG TABLET PO SCH (17:41)
--- NOTE | 2021-12-23 18:15 | NUR ---
RN Closing Notes. PT AOx4, able to express her concerns, VSS. No signs of distress, reports no discomfort other than her pain. pt states she is upset with the discharge that did not go though. Throughout shift provided meds, including pain medications as prescribed, no incidents throughout shift. All safety precautions taken, bed at lowest position, call light and table within reach.
[2021-12-23] MEDS: INSULIN REGULAR, HUMAN 100 UNIT/ML 3 ML VIAL SQ PRN ×2 (19:08→21:39)
--- NOTE | 2021-12-23 19:40 | NUR ---
MSRN FULLY AWAKE, ILEOSTOMY INTACT. PATIENT STATED ABOUT TO BE DISCHARGE BUT WAS POSTPONED FOR TOMORROW INSTEAD. WAS TOLD SURGERY RESCHEDULED FOR SUNDAY FOR ILEOSTOMY REVERSAL BY CHAZ PERSON.. WITH SLIGHT ABD DISCOMFORTS, REMINDED TO CALL STAFF FOR ANY ASSISTANCE OF FURTHER DISCOMFORTS. ALL NEEDS ATTENDED. TO CONTINUE. SAFETY PRECAUTIONS EMPHASIZED.
[2021-12-23 20:00] VITALS: BP 102/46
[2021-12-23] MEDS: TEMAZEPAM 15 MG CAPSULE PO PRN (21:31)
[2021-12-23] MEDS: VENLAFAXINE XR 75 MG CAP.SR.24H PO SCH (21:31)
[2021-12-23] MEDS: ZINC SULFATE 220 MG CAPSULE PO SCH (21:32)
[2021-12-23] MEDS: INSULIN GLARGINE, 100 UNIT/ML CARTRIDGE SQ SCH (21:36)
--- NOTE | 2021-12-23 22:00 | NUR ---
MSRN BS WAS 257 COVERED WITH REGULAR INSULIN PER SLIDING SCALE. SNACKS PROVIDED
[2021-12-24] MEDS: MORPHINE SULFATE INJ 2 MG/ML DISP.SYRIN IV PRN ×2 (00:37→05:25)
--- NOTE | 2021-12-24 01:02 | NUR ---
MSRN VERBALIZES RIGHT ABD PAIN, MORPHINE 2MG IVP ADMINISTERED. ILEOSTOMY CHANGED. REPOSITIONED. KEPT COMFORTABLE. CLOSELY WATCHED
--- NOTE | 2021-12-24 05:25 | NUR ---
MSRN MORPHINE 2 MG ADMNISTERED FOR RIGHT ABD PAIN, ILEOSTOMY LARGE AMOUNT OF LIQUID STOOLS, CHANGED. KEPT COMFORTABLE
--- NOTE | 2021-12-24 06:35 | NUR ---
DONNA REFUSED BLOOD DRAW AND ACCUCHECKS AT THIS TIME
--- NOTE | 2021-12-24 07:10 | NUR ---
ms rn received on bed,awake,alert,oriented x4,not in any form of distress, respirations even and unlabored,no sob noted,denies pain at this time,all needs attended.
[2021-12-24] MEDS: BLOOD SUGAR DIAGNOSTIC 1 EACH STRIP IN SCH (07:30)
--- NOTE | 2021-12-24 07:30 | NUR ---
ms rn refused to check sugar at this time.
[2021-12-24 08:00] VITALS: BP 117/73
[2021-12-24] MEDS: GLUCERNA SHAKE 237 ML CAN PO SCH (08:00)
[2021-12-24] MEDS: PANTOPRAZOLE 40 MG TABLET.DR PO SCH (08:40)
[2021-12-24] MEDS: HYDROCODONE/APAP 10/325MG TABLET PO PRN (08:40)
--- NOTE | 2021-12-24 09:30 | NUR ---
ms clark breakfast served,due meds given,tolerated well.
--- NOTE | 2021-12-24 09:35 | NUR ---
ms rn texrted dr. townsend what is the plan for sunday, patient wants to know, was advised patient to call his office on sunday, report given to Carola clark at [place],.
[2021-12-24] MEDS: SODIUM POLYSTYRENE SULFONATE 15 G/60 ML BOTTLE PO SCH (09:43)
[2021-12-24 09:44] VITALS: BP 117/73
[2021-12-24] MEDS: FOLIC ACID 1 MG TABLET PO SCH (09:44)
[2021-12-24] MEDS: LISINOPRIL (20MG) 20 MG TABLET PO SCH (09:44)
[2021-12-24] MEDS: MULTIVIT W/MINERALS 1 TAB TABLET PO SCH (09:44)
[2021-12-24] MEDS: FERROUS SULFATE (325 MG) 325 MG/TAB TABLET PO SCH (09:45)
[2021-12-24] MEDS: VENLAFAXINE XR 150 MG CAP.SR.24H PO SCH (09:45)
[2021-12-24] MEDS: DOCUSATE SODIUM 100 MG CAPSULE PO SCH (09:45)
[2021-12-24] MEDS: SUCRALFATE 1 G TABLET PO SCH (09:45)
[2021-12-24] MEDS: GABAPENTIN 100 MG CAPSULE PO SCH (09:46)
[2021-12-24] MEDS: APIXABAN 5 MG TABLET PO SCH (09:48)
[2021-12-24] MEDS: PROSOURCE / PROSTAT (PYXIS) 30 ML UDC PO SCH (09:48)
--- NOTE | 2021-12-24 10:05 | NUR ---
ms house rn instructions given and understood, transferred to [facility], all needs attended.
[2021-12-28] MEDS ORDERED: AMOX-430 PO (10:19)
== END 2021-12-24 10:30 | DRG 919 ==
LOC: ER 13:43 → TELE 21:59 → MED 12-14 11:40
PROVIDERS: ADMIT Nurse Practitioner Family
PROC: 05HB33Z Insertion of Infusion Device into Right Basilic Vein, Percutaneous Approach (ICD-10-PCS; principal; 2021-12-13)
PROC: 05HF33Z Insertion of Infusion Device into Left Cephalic Vein, Percutaneous Approach (ICD-10-PCS; 2021-12-14)
DX: T85.848A Pain due to other internal prosthetic devices, implants and grafts, initial encounter (principal); N17.0 Acute kidney failure with tubular necrosis; E87.1 Hypo-osmolality and hyponatremia; K76.6 Portal hypertension; E87.2 Acidosis; Z68.1 Body mass index [BMI] 19.9 or less, adult; Y84.8 Other medical procedures as the cause of abnormal reaction of the patient, or of later complication, without mention of misadventure at the time of the procedure; E87.5 Hyperkalemia; Y92.129 Unspecified place in nursing home as the place of occurrence of the external cause; Z20.822 Contact with and (suspected) exposure to COVID-19; Z86.718 Personal history of other venous thrombosis and embolism; G40.909 Epilepsy, unspecified, not intractable, without status epilepticus; E11.9 Type 2 diabetes mellitus without complications; K21.9 Gastro-esophageal reflux disease without esophagitis; K76.9 Liver disease, unspecified; G89.4 Chronic pain syndrome; Z90.411 Acquired partial absence of pancreas; Z93.3 Colostomy status; Z79.01 Long term (current) use of anticoagulants; Z79.899 Other long term (current) drug therapy; Z79.4 Long term (current) use of insulin; E88.09 Other disorders of plasma-protein metabolism, not elsewhere classified; F32.A Depression, unspecified; I12.9 Hypertensive chronic kidney disease with stage 1 through stage 4 chronic kidney disease, or unspecified chronic kidney disease; N18.9 Chronic kidney disease, unspecified; Z87.440 Personal history of urinary (tract) infections
CPT/HCPCS: 36410; 36415; 74250-TC; 74280-TC; 80048-TC; 80053-TC; 80076-TC; 81001; 82962-TC; 83690-TC; 83735-TC; 84100-TC; 84132-TC; 85025-TC; 87081-TC; A4362; C9803; G0378; J1815; J1885; J1940; J2270; J2405; J3370; J3490; J7030; J7040; Q9963

== ENCOUNTER 2021-12-27 05:22 | Inpatient (IN) | payer MEDICARE, OTHER ==
[~2021-12-27] VITALS: Ht 170.2 cm; Wt 60.3 kg
[~2021-12-27 05:22] MED LIST changes: +TEMA15CA PO; +VENL75CA62 PO
[2021-12-27 06:54] LABS: CALCIUM, SERUM 8.8 mg/dL (8.5-10.1); CREATININE 1.3 mg/dL (0.6-1.3); POTASSIUM 5.5 mmol/L (3.5-5.1)
--- NOTE | 2021-12-27 07:00 | NUR ---
DAY SURGERY ADMISSION NOTE PATIENT TAKEN TO SURGERY, ALERT/ORIENTED X 4, PT ABLE TO MAKE NEEDS KNOWN. [facility]. PATIENT STABLE ON RA, NO S/S OF DISTRESS OR SOB NOTED, BREATHING EVEN AND UNLABORED. PATIENT AMBULATORY. COLOSTOMY BAGS IN RLQ. ALL BELONGINGS CHARTED, PATIENT HAD ZHANG AND CHECK, STATED SHE WANTED TO KEEP IN PURSE. UNABLE TO INSERT IV D/T PATIENT BEING HARD STICK. ALL CONSENT FORMS SIGNED AND SURGERY CHECKLIST COMPLETED. MRSA SWAB DONE. WILL ENDORSE TO DAY SHIFT NURSE
[2021-12-27] MEDS ORDERED: ROCURONIUM BROMIDE 50 MG/5 ML ONE (07:10)
[2021-12-27] MEDS ORDERED: FENTANYL PF 100MCG/2ML AMPUL ONE (07:10)
[2021-12-27] MEDS ORDERED: BUPIVACAINE MPF W/EPI 0.25% 30 ML VIAL ONE (08:00)
[2021-12-27] MEDS ORDERED: BUPIVACAINE 0.25% 75 MG/30 ML VIAL ONE (08:00)
[2021-12-27] MEDS ORDERED: MIDAZOLAM HCL 2 MG/2ML VIAL ONE (08:04)
[2021-12-27] MEDS ORDERED: METRONIDAZOLE 500MG/ NS 100ML 100 ML IV ONE (09:07)
[2021-12-27] MEDS ORDERED: HYDROMORPHONE 1 MG/1 ML DISP.SYRIN ONE ×2 (09:41→10:56)
[2021-12-27] MEDS ORDERED: HYDROMORPHONE INJ 2 MG/ML DISP.SYRIN ONE (10:05)
[2021-12-27] MEDS ORDERED: Potassium Chloride 20 MEQ in IV D5/0.45 NACL 1,000 ML IV PRN (11:00)
--- NOTE | 2021-12-27 11:30 | NUR ---
MS RN NOTES: RECEIVED PT FROM DAY SURGERY, ENDORSED BY NELI EPPS. AWAKE, A/OX4, ABLE TO MAKE NEEDS KNOWN. DRESSING NOTED IN THE ABDOMEN, DRY AND INTACT. IV ACCESS R FOOT #20, PATENT FLUSHING WELL. PT ON 02, 2L, NO S/S OF SOB/ RESPIRATORY DISTRESS. VITALS WNL, 126/59, HR: 59, RR: 18, O2 SAT 98%. PT REPORTS PAIN 7/10, WILL ADMIN PRN PAIN MED. RLQ ILEOSTOMY NOTED WITH SMALL AMOUNT OF LIQUID STOOL. DVT PUMP NOTED ON BOTH BILATERAL LEGS. KEPT ON LIQUID DIET, ADVANCE TOLERATED PER MD. SAFETY MEASURES IN PLACE: HOB ELEVATED, LOCKED AT LOWEST POSITION, SIDERAILS UP X2, CALL LIGHT AND TABLE WITHIN REACH, WILL CONT TO MONITOR.
[2021-12-27] MEDS ORDERED: AMIN30LI2 PO (11:49)
[2021-12-27] MEDS ORDERED: SODI15OR6 PO (11:49)
[2021-12-27] MEDS ORDERED: INSU100V3 SQ (11:49)
[2021-12-27] MEDS ORDERED: ALLA266C2 TP (11:49)
[2021-12-27] MEDS ORDERED: NUT.237L28 PO (11:49)
[2021-12-27] MEDS: METOCLOPRAMIDE HCL 10 MG/2 ML VIAL IV SCH ×2 (12:00→17:36)
[2021-12-27] MEDS ORDERED: IV NS 0.9% 1,000 ML IV PRN (12:00)
[2021-12-27] MEDS ORDERED: Z GUARD REMEDY 4 OZ OINT TP PRN (12:00)
[2021-12-27] MEDS ORDERED: ZOLPIDEM TARTRATE 5 MG TABLET PO PRN (12:00)
[2021-12-27] MEDS ORDERED: ACETAMINOPHEN 325 MG TABLET PO PRN ×2 (12:00→16:30)
[2021-12-27] MEDS ORDERED: MAGNESIUM HYDROXIDE 30 ML UDC PO PRN (12:00)
[2021-12-27] MEDS ORDERED: ONDANSETRON HCL/PF 4 MG/2 ML VIAL IVP PRN (12:00)
[2021-12-27] MEDS ORDERED: MAG HYDROX/AL HYDROX/SIMETH 30 ML UDC PO PRN (12:00)
[2021-12-27] MEDS: MORPHINE SULFATE INJ 2 MG/ML DISP.SYRIN IV PRN ×4 (12:01→21:52)
[2021-12-27 16:00] VITALS: BP 116/93
[2021-12-27] MEDS ORDERED: TEMAZEPAM 15 MG CAPSULE PO PRN (16:30)
[2021-12-27] MEDS ORDERED: BISACODYL SUPP (10 MG) 10 MG/SUPP.RECT SUPP.RECT RC PRN (16:30)
[2021-12-27] MEDS ORDERED: DEXTROSE 50%-WATER 50 ML DISP.SYRIN IV PRN (16:30)
[2021-12-27] MEDS: GABAPENTIN 100 MG CAPSULE PO SCH (17:00)
--- NOTE | 2021-12-27 17:00 | NUR ---
MS RN NOTES: PT BS = 419, POST PRANDIAL, ALERTED HEAT TREATING OPERATOR, WILL ADMINISTER INSULIN COVERAGE.
[2021-12-27] MEDS: ANCEF 1 GM/50 ML D5W IV SCH ×2 (17:06)
[2021-12-27] MEDS: SUCRALFATE 1 G TABLET PO SCH (17:07)
[2021-12-27] MEDS: FERROUS SULFATE (325 MG) 325 MG/TAB TABLET PO SCH (17:07)
[2021-12-27] MEDS: BLOOD SUGAR DIAGNOSTIC 1 EACH STRIP VI SCH ×2 (17:37→21:40)
[2021-12-27] MEDS ORDERED: ASCORBIC ACID 500 MG TABLET PO SCH (18:00)
[2021-12-27] MEDS: METRONIDAZOLE 500MG/ NS 100ML 500 MG in PREMIX 1 EA IV SCH (18:23)
[2021-12-27] MEDS: *INSULIN REGULAR(HUMULIN R)HUM 100 UNIT/ML VIAL SQ PRN ×2 (18:35→21:39)
[2021-12-27] MEDS: HYDROCODONE/APAP 10/325MG TABLET PO PRN (18:36)
--- NOTE | 2021-12-27 19:40 | NUR ---
MS RN OPENING NOTES; RECEIVED PT IN BED AA/OX4,ON RM AIR IJEOMA WELL NO SIGN SOB/DISTRESS NOTED. ABLE TO MAKE NEEDS KNOWN. IV ACCESS DEMETRIUS MIDLINE PATENT AND INTACT.PT ON RA, RLQ ILEOSTOMY NOTED WITH SMALL AMOUNT OF LIQUID STOOL.SAFETY MEASURES IN PLACE: HOB ELEVATED, LOCKED AT LOWEST POSITION, SIDERAILS UP X2, CALL LIGHT AND TABLE WITHIN REACH,WILL CONTINUE TO MONITOR.
[2021-12-27 20:00] VITALS: BP 83/45
--- NOTE | 2021-12-27 20:01 | NUR ---
MS RN CLOSING NOTES: PT AWAKE, A/OX4, ABLE TO MAKE NEEDS KNOWN. DRESSING NOTED IN THE ABDOMEN, DRY AND INTACT. IV ACCESS DEMETRIUS MIDLINE INFUSING NS @ 90ML/HR, PATENT FLUSHING WELL. PT ON RA, NO S/S OF SOB/ RESPIRATORY DISTRESS. RLQ ILEOSTOMY NOTED WITH SMALL AMOUNT OF LIQUID STOOL. DVT PUMP NOTED ON BOTH BILATERAL LEGS. KEPT ON SOFT DIET AND ADVANCE TOLERATED PER MD. SAFETY MEASURES IN PLACE: HOB ELEVATED, LOCKED AT LOWEST POSITION, SIDERAILS UP X2, CALL LIGHT AND TABLE WITHIN REACH, ENDORSED TO PM SHIFT.
[2021-12-27] MEDS ORDERED: ENOXAPARIN SODIUM 40 MG/0.4 ML DISP.SYRIN SQ SCH (21:00)
[2021-12-27] MEDS: MORPHINE SULFATE SR 15 MG TABLET.SA PO SCH (21:25)
[2021-12-27] MEDS ORDERED: VENLAFAXINE XR 75 MG CAP.SR.24H PO SCH (22:00)
[2021-12-27] MEDS ORDERED: ZINC SULFATE 220 MG CAPSULE PO SCH (22:00)
[2021-12-28] MEDS: ANCEF 1 GM/50 ML D5W IV SCH ×2 (00:26)
[2021-12-28] MEDS: METOCLOPRAMIDE HCL 10 MG/2 ML VIAL IV SCH ×3 (00:26→12:35)
[2021-12-28] MEDS: METRONIDAZOLE 500MG/ NS 100ML 500 MG in PREMIX 1 EA IV SCH (01:26)
--- NOTE | 2021-12-28 01:56 | NUR ---
RN NOTES; PT POTASSIUM 5.5.I TEXTED DOC.JIMMY WITH A NEW ORDERED KAYEXALATE 30G.ONE TIME.
[2021-12-28] MEDS ORDERED: SODIUM POLYSTYRENE SULFONATE 15 G/60 ML BOTTLE PO ONE (02:00)
[2021-12-28] MEDS ORDERED: SODIUM POLYSTYRENE SULFONATE 15 G/60 ML BOTTLE ONE (02:51)
[2021-12-28] MEDS: HYDROCODONE/APAP 10/325MG TABLET PO PRN ×2 (05:16→12:42)
--- NOTE | 2021-12-28 06:15 | NUR ---
MS RN CLOSING NOTES; PT IN BED AA/OX4,ON RM AIR IJEOMA WELL NO SIGN SOB/DISTRESS NOTED.BREATHING EVEN AND UNLABORED. ABLE TO MAKE NEEDS KNOWN. IV ACCESS DEMETRIUS MIDLINE PATENT AND INTACT.RLQ ILEOSTOMY CLEANED AND EMPTY. NO REDNESS AROUND NOTED..SAFETY MEASURES IN PLACE: HOB ELEVATED, LOCKED AT LOWEST POSITION, SIDERAILS UP X2, CALL LIGHT AND TABLE WITHIN REACH,WILL ENDORSED TO NEXT SHIFT.
[2021-12-28] MEDS: INSULIN REGULAR, HUMAN 100 UNIT/ML 3 ML VIAL SQ PRN ×2 (06:31→11:32)
[2021-12-28] MEDS: BLOOD SUGAR DIAGNOSTIC 1 EACH STRIP VI SCH ×2 (06:35→11:31)
--- NOTE | 2021-12-28 07:20 | NUR ---
RN OPENING NOTES RECEIVED PATIENT IN BED, AWAKE, A/O X4, VERBALLY RESPONSIVE AND ABLE TO MAKE NEEDS KNOWN. STABLE ON ROOM AIR, NO SOB NOTED, BREATHING EVEN AND UNLABORED. NOTED WITH MIDLINE ON RIGHT UPPER ANTECUBITAL AREA, INTACT AND PATENT, WITH NS @ 90ML/HR RUNNING. NOTED WITH ILEOSTOMY ON RIGHT LOWER QUADRANT. SAFETY MEASURE IN PLACE. BED IN LOWEST AND LOCKED POSITION, SIDE RAILS UP X2, CALL LIGHT AND TABLE PLACED WITHIN EASY REACH. WILL CONTINUE TO MONITOR PATIENT
[2021-12-28] MEDS ORDERED: PANTOPRAZOLE 40 MG TABLET.DR PO SCH (07:30)
[2021-12-28] MEDS: MORPHINE SULFATE INJ 2 MG/ML DISP.SYRIN IV PRN ×3 (07:43→15:35)
[2021-12-28 08:00] VITALS: BP 88/40
[2021-12-28] MEDS: SUCRALFATE 1 G TABLET PO SCH (08:29)
[2021-12-28] MEDS: FERROUS SULFATE (325 MG) 325 MG/TAB TABLET PO SCH (08:29)
[2021-12-28] MEDS: MORPHINE SULFATE SR 15 MG TABLET.SA PO SCH (08:29)
[2021-12-28] MEDS: GABAPENTIN 100 MG CAPSULE PO SCH ×2 (08:30→12:35)
[2021-12-28] MEDS ORDERED: MULTIVIT W/MINERALS 1 TAB TABLET PO SCH (09:00)
[2021-12-28] MEDS ORDERED: DOCUSATE SODIUM 100 MG CAPSULE PO SCH (09:00)
[2021-12-28] MEDS ORDERED: GLUCERNA SHAKE 237 ML CAN PO SCH (09:00)
[2021-12-28] MEDS ORDERED: LISINOPRIL (20MG) 20 MG TABLET PO SCH (09:00)
[2021-12-28] MEDS ORDERED: PROSOURCE / PROSTAT (PYXIS) 30 ML UDC PO SCH (09:00)
[2021-12-28] MEDS ORDERED: FOLIC ACID 1 MG TABLET PO SCH (09:00)
[2021-12-28] MEDS ORDERED: VENLAFAXINE XR 150 MG CAP.SR.24H PO SCH (09:00)
[2021-12-28] MEDS ORDERED: AMOX-430 PO (10:19)
[2021-12-28 10:51] LABS: BASOPHILS % (AUTO) 0.3 % (0.0-2.0); EOSINOPHILS % (AUTO) 0.7 % (0.0-6.0); HEMATOCRIT 26 % (33-45); HEMOGLOBIN 8.6 g/dL (11.5-14.8); LYMPHOCYTES % (AUTO) 18.2 % (20.0-44.0); MEAN CORPUSCULAR HGB CONC 33 g/dl (31.0-36.0); MEAN CORPUSCULAR VOLUME 83 fL (82-100); MONOCYTES # (AUTO) 0.5 K/uL (0.1-1.30); MONOCYTES % (AUTO) 8.1 % (2.0-12.0); NEUTROPHILS # (AUTO) 4.2 K/uL (1.8-8.9); NEUTROPHILS % (AUTO) 72.7 % (43.0-81.0); PLATELET COUNT (AUTO) 132 K/uL (150-450); RED BLOOD CELL COUNT(AUTO) 3.18 MIL/uL (4.0-5.2); WHITE BLOOD COUNT (AUTO) 5.7 K/uL (4.3-11.0)
[2021-12-28 11:27] LABS: ALBUMIN 2.9 g/dL (3.4-5.0); BILIRUBIN,TOTAL 0.1 mg/dL (0.2-1.0); CALCIUM, SERUM 8.1 mg/dL (8.5-10.1); CREATININE 1.3 mg/dL (0.6-1.3); MAGNESIUM 1.5 mg/dL (1.8-2.4); POTASSIUM 4.1 mmol/L (3.5-5.1); TOTAL PROTEIN, SERUM 6.2 g/dL (6.4-8.2)
[2021-12-28 16:09] VITALS: BP 113/62
--- NOTE | 2021-12-28 16:30 | NUR ---
RIVETING MACHINE OPERATOR AUTOMATIC NOTES PATIENT DISCHARG[facility] TO [facility] IN STABLE CONDITION. PATIENT IS A/O X4, ABLE TO MAKE NEEDS KNOWN, NO SIGNS OF ACUTE DISTRESS NOTED. ALL BELONGINGS ACCOUNTED FOR, FORM SIGNED BY PATIENT. HEALTH TEACHING PROVIDED TO PATIENT WITH VERBALIZATION OF UNDERSTANDING. ILEOSTOMY SITE CLEANED, BAG CHANGED. IV ACCESS REMOVED, NO BLEEDING NOTED ON SITE, PRESSURE DRESSING APPLIED. ABDOMINAL INCISION SITE WITH CLEAN AND DRY DRESSING. REPORT GIVEN TO SUPRIYA GAFFNEY FROM [facility]. PATIENT PICKED UP BY [facility] @1620 VIA GURNEY. CN AWARE OF DISCHARGE.
== END 2021-12-28 16:20 | DRG 337 ==
LOC: DS 05:22 → MED 05:32 → DS 08:20 → MED 08:21
PROVIDERS: ADMIT Nurse Practitioner Acute Care; ATTEND Nurse Practitioner Acute Care
PROC: 0DN80ZZ Release Small Intestine, Open Approach (ICD-10-PCS; principal; 2021-12-27)
PROC: 05H533Z Insertion of Infusion Device into Right Subclavian Vein, Percutaneous Approach (ICD-10-PCS; 2021-12-27)
PROC: B546ZZA Ultrasonography of Right Subclavian Vein, Guidance (ICD-10-PCS; 2021-12-27)
DX: K94.19 Other complications of enterostomy (principal); R10.9 Unspecified abdominal pain; G40.909 Epilepsy, unspecified, not intractable, without status epilepticus; Y83.8 Other surgical procedures as the cause of abnormal reaction of the patient, or of later complication, without mention of misadventure at the time of the procedure; Y81.8 Miscellaneous general- and plastic-surgery devices associated with adverse incidents, not elsewhere classified; Y92.89 Other specified places as the place of occurrence of the external cause; K66.0 Peritoneal adhesions (postprocedural) (postinfection); E87.5 Hyperkalemia; G89.4 Chronic pain syndrome; F32.A Depression, unspecified; E11.9 Type 2 diabetes mellitus without complications; I10 Essential (primary) hypertension; K21.9 Gastro-esophageal reflux disease without esophagitis; Z86.718 Personal history of other venous thrombosis and embolism; K76.9 Liver disease, unspecified; Z79.4 Long term (current) use of insulin; Z20.822 Contact with and (suspected) exposure to COVID-19
CPT/HCPCS: 36410; 36415; 80048-TC; 80053-TC; 82962-TC; 83735-TC; 84100-TC; 85025-TC; 87081-TC; A4216; G0378; J0690; J1100; J1170; J1650; J1815; J2250; J2270; J2405; J2704; J2765; J3010; J3480; J3490; J7030; J7060

== ENCOUNTER 2022-02-06 15:16 | Inpatient (IN) | payer MEDICARE, OTHER ==
[~2022-02-06] VITALS: Ht 165.1 cm; Wt 50.8 kg
[~2022-02-06 15:16] MED LIST changes: +ALLA266C2 TP; +AMIN30LI2 PO; -AMIN887L PO; +AMOX-430 PO; -CRAN425C6 PO; -FAMO20TA8 PO; -INSU100C10 SQ; +INSU100V3 SQ; -MAGN400O6 PO; -NA P133E RC; +NUT.237L28 PO; -ONDA4TAB11 PO; -PSYL3.4P6 PO; +SODI15OR6 PO
--- NOTE | 2022-02-06 16:01 | NUR ---
BIBS STATING SHE IS HAVING DIFFICULTY WALKING, OUT OF MORPHINE AND OXYCODONE PRESCRIPTION. PT HAS COLOSTOMY BAG AND HX OF CHRONIC ABOMINAL PAIN. AWAITING MD SMITH.
--- NOTE | 2022-02-06 16:37 | NUR ---
TO ER BED 11,NO APPARENT CHANGE IN CONDITION
--- NOTE | 2022-02-06 18:11 | NUR ---
IV ESTABLISHED R HAND 22G. LABS DRAWN AND SENT.
--- NOTE | 2022-02-06 18:13 | NUR ---
URINE COLLECTED AND SENT
--- NOTE | 2022-02-06 18:32 | NUR ---
COLOSTOMY BAG LEAKING, NEW COLOSTOMY BAG PLACED.
[2022-02-06 18:50] LABS: BILIRUBIN,URINE SMALL (NEGATIVE); COLOR,URINE YELLOW (YELLOW); LEUKOCYTE ESTERASE ,URINE NEGATIVE (NEGATIVE); NITRITE, URINE NEGATIVE (NEGATIVE); PH,URINE 5.5 (5.0-8.0); PROTEIN,URINE TRACE mg/dl (NEGATIVE); UGLUCOSE >=1000 mg/dL (NEGATIVE); UROBILINOGEN,URINE 0.2 EU/dL (0.2)
[2022-02-06 19:19] LABS: CALCIUM, SERUM 9.7 mg/dL (8.5-10.1); CARBON DIOXIDE 17 mmol/L (21-32); CHLORIDE 98 mmol/L (98-107); CREATININE 1.7 mg/dL (0.6-1.3); POTASSIUM 4.6 mmol/L (3.5-5.1); SODIUM SERUM 130 mmol/L (136-145); UREA NITROGEN, BLOOD 29 mg/dL (7-18)
--- NOTE | 2022-02-06 19:21 | NUR ---
GLUCOSE 414
[2022-02-06 19:26] LABS: ALANINE AMINOTRANSFERASE 34 U/L (12-78); ALBUMIN 4.2 g/dL (3.4-5.0); ALKALINE PHOSPHATASE 139 U/L (46-116); ASPARTATE AMINOTRANSFERASE 31 U/L (15-37); BILIRUBIN,TOTAL 0.2 mg/dL (0.2-1.0); TOTAL PROTEIN, SERUM 9.1 g/dL (6.4-8.2)
[2022-02-06 19:27] LABS: GLUCOSE 414 mg/dL (74-106); LIPASE < 10 U/L (73-393)
[2022-02-06 19:48] LABS: BASOPHILS % (AUTO) 0.3 % (0.0-2.0); EOSINOPHILS % (AUTO) 0.5 % (0.0-6.0); HEMATOCRIT 39 % (33-45); HEMOGLOBIN 12.5 g/dL (11.5-14.8); LYMPHOCYTES # (AUTO) 0.9 K/uL (0.8-4.8); LYMPHOCYTES % (AUTO) 13.2 % (20.0-44.0); MEAN CORPUSCULAR HGB CONC 32 g/dl (31.0-36.0); MEAN CORPUSCULAR VOLUME 83 fL (82-100); MONOCYTES # (AUTO) 0.3 K/uL (0.1-1.30); MONOCYTES % (AUTO) 4.7 % (2.0-12.0); NEUTROPHILS # (AUTO) 5.2 K/uL (1.8-8.9); NEUTROPHILS % (AUTO) 81.3 % (43.0-81.0); PLATELET COUNT (AUTO) 244 K/uL (150-450); RED BLOOD CELL COUNT(AUTO) 4.67 MIL/uL (4.0-5.2); WHITE BLOOD COUNT (AUTO) 6.4 K/uL (4.3-11.0)
[2022-02-06] MEDS ORDERED: IV NS 0.9% 1,000 ML BAG IV ONE (20:00)
[2022-02-06 20:17] LABS: ABG BASE EXCESS -10.4 mmol/L; ABG PCO2 21.2 mmHg (35.0-45.0); ABG PH 7.389 (7.350-7.450); ABG PO2 97.8 mmHg (75.0-100.0); COHb 0.3 % (0.5-1.5); MetHb 0.3 % (0.0-1.5); O2Hb 96.4 % (94.0-97.0); SITE, ABG Right Radial; VENT MODE, BG Room Air
[2022-02-06] MEDS ORDERED: INSULIN REGULAR, HUMAN 100 UNIT/ML 10 ML VIAL SQ ONE (20:30)
[2022-02-06] MEDS ORDERED: INSULIN REGULAR, HUMAN 100 UNIT/ML 10 ML VIAL ONE (20:48)
--- NOTE | 2022-02-06 21:45 | NUR ---
POC BG 276
--- NOTE | 2022-02-06 22:03 | NUR ---
312-1 IS AVAILABLE IF PATIENT NEEDS TELEBED.
--- NOTE | 2022-02-06 22:05 | NUR ---
TELE 709-9
[2022-02-06] MEDS ORDERED: MORPHINE SULFATE INJ 4 MG/ML DISP.SYRIN ONE (22:24)
[2022-02-06] MEDS ORDERED: MORPHINE SULFATE INJ 4 MG/ML DISP.SYRIN IV ONE (22:30)
--- NOTE | 2022-02-06 23:23 | NUR ---
REPORT GIVEN TO MARIE
[2022-02-06] MEDS ORDERED: MAGNESIUM HYDROXIDE 30 ML UDC PO PRN (23:30)
[2022-02-06] MEDS ORDERED: Z GUARD REMEDY 4 OZ OINT TP PRN (23:30)
[2022-02-06] MEDS ORDERED: IV NS 0.9% 1,000 ML IV PRN (23:30)
[2022-02-06] MEDS ORDERED: ONDANSETRON HCL/PF 4 MG/2 ML VIAL IVP PRN (23:30)
[2022-02-06] MEDS ORDERED: ACETAMINOPHEN 325 MG TABLET PO PRN (23:30)
--- NOTE | 2022-02-06 23:52 | NUR ---
PATIENT BEING TRANSFERRED TO [facility]
[2022-02-07] VITALS: BP 121/67
[2022-02-07] MEDS ORDERED: DEXTROSE 50%-WATER 50 ML DISP.SYRIN IV PRN
[2022-02-07] MEDS ORDERED: *INSULIN REGULAR(HUMULIN R)HUM 100 UNIT/ML VIAL SQ PRN
[2022-02-07] MEDS ORDERED: INSULIN REGULAR, HUMAN 100 UNIT/ML 3 ML VIAL SQ PRN
--- NOTE | 2022-02-07 00:10 | NUR ---
RN NOTE RECEIVED PT FROM ER. REPORT WAS GIVEN BY DERREK. PT A/OX4. NO C/O OF PAIN AT THIS TIME. NO SIGNS OF RESPIRATORY DISTRESS OR SOB. STABLE ON RA 98%. PT PUT ON TELE MONITOR READING SR 87. REDNESS NOTED ON SACRAL AREA, OINTMENT APPLIED. PT DECLINED MEPILEX DUE TO HER WANTING IT OPEN TO AIR. WILL PUT IN A WOUND CONSULT TO EVALUATE IN THE MORNING. PHOTO TAKEN AND PLACED IN CHART. PT HAS A MIDLINE RIGHT UPPER ARM INTACT AND PATENT INFUSING NS @ 75ML/HR. SAFETY CHECKS IN PLACE: BED LOCKED, BED IN LOWEST POSITION, CALL LIGHT WITHIN REACH, SIDE RAILS X2. WILL CONT PLAN OF CARE.
[2022-02-07 00:15] VITALS: BP 121/67
[2022-02-07] MEDS ORDERED: BISACODYL SUPP (10 MG) 10 MG/SUPP.RECT SUPP.RECT RC PRN (01:00)
[2022-02-07] MEDS ORDERED: TEMAZEPAM 7.5 MG CAPSULE PO PRN (01:00)
[2022-02-07] MEDS: MORPHINE SULFATE SR 15 MG TABLET.SA PO SCH ×2 (01:09→09:17)
[2022-02-07 04:00] VITALS: BP 118/84
--- NOTE | 2022-02-07 06:30 | NUR ---
RN CLOSING NOTE PT IN BED AWAKE, A/OX4. NO SIGNS OF RESPIRATORY DISTRESS OR SOB NOTED. STABLE ON RA. TELE MONITOR READING SR 87. RIGHT UPPER ARM MIDLINE CURRENTLY INFUSING MS 75ML/HR. NO C/O OF PAIN AT THIS TIME. DIETARY CONSULT, PSYCH CONSULT, WOUND CONSULT, REQUESTED. ALL SCHEDULED MEDS GIVEN, ALL NEEDS ATTENDED TO. SAFETY CHECKS IN PLACE: BED LOCKED, BED IN LOWEST POSITION, SIDE RIALS X2, CALL LIGHT WITHIN REACH. WILL ENDORSE TO DAY SHIFT NURSE FOR CHANA.
[2022-02-07 06:41] LABS: BASOPHILS % (AUTO) 0.3 % (0.0-2.0); EOSINOPHILS % (AUTO) 3.7 % (0.0-6.0); HEMATOCRIT 32 % (33-45); HEMOGLOBIN 10.5 g/dL (11.5-14.8); LYMPHOCYTES # (AUTO) 1.2 K/uL (0.8-4.8); LYMPHOCYTES % (AUTO) 29.8 % (20.0-44.0); MEAN CORPUSCULAR HGB CONC 33 g/dl (31.0-36.0); MEAN CORPUSCULAR VOLUME 81 fL (82-100); MONOCYTES # (AUTO) 0.4 K/uL (0.1-1.30); MONOCYTES % (AUTO) 8.7 % (2.0-12.0); NEUTROPHILS # (AUTO) 2.3 K/uL (1.8-8.9); NEUTROPHILS % (AUTO) 57.5 % (43.0-81.0); PLATELET COUNT (AUTO) 179 K/uL (150-450); RED BLOOD CELL COUNT(AUTO) 3.91 MIL/uL (4.0-5.2)
[2022-02-07 07:17] LABS: CALCIUM, SERUM 9.1 mg/dL (8.5-10.1); CREATININE 1.3 mg/dL (0.6-1.3); MAGNESIUM 1.4 mg/dL (1.8-2.4); PHOSPHORUS 3.6 mg/dL (2.5-4.9); POTASSIUM 4.3 mmol/L (3.5-5.1)
--- NOTE | 2022-02-07 07:30 | NUR ---
MINIATURE SET DESIGNER NOTES PT IN BED, AWAKE, ALERT AND ORIENTED, DENIES PAIN OR ANY DISCOMFORT, RESPIRATIONS NORMAL, CALL LIGHT WITHIN REACH, IV FLUIDS INFUSING WELL.
[2022-02-07 08:00] VITALS: BP 131/86
[2022-02-07] MEDS: BLOOD SUGAR DIAGNOSTIC 1 EACH STRIP VI SCH ×3 (08:17→17:08)
[2022-02-07] MEDS ORDERED: DOCUSATE SODIUM 100 MG CAPSULE PO SCH (09:00)
[2022-02-07] MEDS ORDERED: ZINC SULFATE 220 MG CAPSULE PO SCH (09:00)
[2022-02-07] MEDS ORDERED: ASCORBIC ACID 500 MG TABLET PO SCH (09:00)
[2022-02-07] MEDS ORDERED: FOLIC ACID 1 MG TABLET PO SCH (09:00)
[2022-02-07] MEDS ORDERED: APIXABAN 5 MG TABLET PO SCH (09:00)
[2022-02-07] MEDS ORDERED: PROSOURCE / PROSTAT (PYXIS) 30 ML UDC PO SCH (09:00)
[2022-02-07] MEDS ORDERED: MULTIVIT W/MINERALS 1 TAB TABLET PO SCH (09:00)
[2022-02-07] MEDS ORDERED: VENLAFAXINE XR 150 MG CAP.SR.24H PO SCH (09:00)
[2022-02-07] MEDS ORDERED: LISINOPRIL (20MG) 20 MG TABLET PO SCH (09:00)
[2022-02-07] MEDS: FERROUS SULFATE (325 MG) 325 MG/TAB TABLET PO SCH ×2 (09:16→17:08)
[2022-02-07] MEDS: SUCRALFATE 1 G TABLET PO SCH ×2 (09:16→17:08)
--- NOTE | 2022-02-07 10:57 | NUR ---
[place] PROGRAM COORDINATOR NOTES PT SEEN AND EXAMINED BY DR. MARQUEZ, PLAN OF CARE DISCUSSED WITH PT, VERBALIZED UNDERSTANDING.
[2022-02-07] MEDS ORDERED: MAGNESIUM OXIDE 400 MG TABLET PO ONE (12:00)
--- NOTE | 2022-02-07 12:05 | NUR ---
MANAGER POOL NOTES PT'S BS 458, DR. MARQUEZ INFORMED, PER MD, GIVE THE SCHEDULED UNITS OF INSULIN SLIDING SCALE, NO OTHER NEW ORDER RECEIVED.
[2022-02-07] MEDS: GLUCERNA SHAKE 237 ML CAN PO SCH ×2 (12:06→17:08)
[2022-02-07] MEDS ORDERED: INSU100V7 SQ (12:58)
[2022-02-07] MEDS ORDERED: INSU100V3 SQ (12:58)
[2022-02-07] MEDS: HYDROCODONE/APAP 10/325MG TABLET PO PRN ×2 (13:58→18:49)
[2022-02-07] MEDS ORDERED: INSULIN REGULAR, HUMAN 100 UNIT/ML 10 ML VIAL SQ ONE (15:00)
[2022-02-07 16:00] VITALS: BP 90/52
--- NOTE | 2022-02-07 18:12 | NUR ---
PEGGER DOBBY LOOMS NOTES PER DR. AMRQUEZ, PATIENT CLEARED FOR DISCHARGE, LATEST BS 236, DISCHARGE AND MEDICATION INSTRUCTIONS PROVIDED TO PT, VERBALIZED UNDERSTANDING, NEW PRESCRIPTION GIVEN TO PT, BELONGINGS ACCOUNTED FOR, SET UP FOR UBER FENCE BUILDER BY PLUMBING DESIGNER AT 1830.
--- NOTE | 2022-02-07 19:08 | NUR ---
INDUSTRIAL PIPEFITTER JOURNEYMAN NOTES PT IN BED, AWAKE, ALERT AND ORIENTED, PAIN MEDS GIVEN ORDERED, REQUESTED FOR TAXI VOUCHER FROM NURSING LAY OUT INSPECTOR, PER MS ROQUE HERRERA SUP, OK TO CALL FOR A BLS AMBULANCE METALLURGICAL ENGINEERING TEACHER FOR THE PATIENT FOR SAFETY SINCE PT IS STILL FEELING WEAK, CALLED [facility], METALLURGICAL ENGINEERING TEACHER TIME 1944, PT INFORMED, TELE BOX RETURNED TO BRAILLE TRANSLATOR TAMIA BY VALENTIN CARSON, ENDORSED TO MATTE CUTTER NURSE FOR CONTINUITY OF CARE.
--- NOTE | 2022-02-07 19:46 | NUR ---
RN NOTE TRANSPORT HAS ARRIVED TO TAKE PT HOME. REPORT GIVEN TO TRANSPORT AND PAPERWORK SIGNED. MORNING SHIFT ENDORSED THAT PT HAS SIGNED ALL THE DISCHARGE PAPERWORK AND UNDERSTANDS DISCHARGE INSTRUCTIONS. BELONGINGS LIST SIGNED. PT HAS ALL BELONGINGS. GLUCOSE TAKEN AT TIME OF DISCHARGE: 119. PT STABLE UPON BEING DISCHARGED FROM THE HOSPITAL.
--- NOTE | 2022-02-07 20:00 | NUR ---
patternmaker grader note patient taken down at this time accompanied by 3 EMT personnel, to be sent home. midline taken off, id band discarded. patient in stable condition. And aware of prescription meds. Patient sent home in stable condition.
[2022-02-07] MEDS ORDERED: INSULIN GLARGINE, 100 UNIT/ML CARTRIDGE SQ SCH (22:00)
[2022-02-07] MEDS ORDERED: VENLAFAXINE XR 75 MG CAP.SR.24H PO SCH (22:00)
== END 2022-02-07 20:00 | disposition home or self-care (01) | DRG 896 ==
LOC: ER 15:19 → TELE 22:05
PROVIDERS: ADMIT Nurse Practitioner Family; ATTEND Student in an Organized Health Care Education/Training Program
PROC: 05H933Z Insertion of Infusion Device into Right Brachial Vein, Percutaneous Approach (ICD-10-PCS; principal; 2022-02-06)
DX: F11.23 Opioid dependence with withdrawal (principal); N17.0 Acute kidney failure with tubular necrosis; E87.1 Hypo-osmolality and hyponatremia; E87.2 Acidosis; E11.65 Type 2 diabetes mellitus with hyperglycemia; Z20.822 Contact with and (suspected) exposure to COVID-19; G40.909 Epilepsy, unspecified, not intractable, without status epilepticus; I10 Essential (primary) hypertension; Z86.718 Personal history of other venous thrombosis and embolism; K21.9 Gastro-esophageal reflux disease without esophagitis; G89.4 Chronic pain syndrome; K76.9 Liver disease, unspecified; Z93.2 Ileostomy status; Z87.19 Personal history of other diseases of the digestive system; Z79.4 Long term (current) use of insulin; Z79.01 Long term (current) use of anticoagulants; Z79.899 Other long term (current) drug therapy
CPT/HCPCS: 36415; 36600; 71045-TC; 80048-TC; 80076-TC; 82010-TC; 82803-TC; 82962-TC; 83605-TC; 83690-TC; 83735-TC; 84100-TC; 84484-TC; 85025-TC; 87040-TC; 97116-TC; 97530-TC; G0378; J1815; J2270; J7030